=== PATIENT | male | born 1955 | race Caucasian/White ===

== ENCOUNTER 2023-04-08 13:57 | Outpatient (OUT) | payer SELFPAY ==
[2023-04-08 15:41] LABS: Prostate Specific Antigen Scrn 0.96 ng/mL (<=4.00)
== END 2023-04-08 13:58 | disposition home or self-care (01) ==
LOC: LAB 13:57
PROVIDERS: PCP Internal Medicine; Visit Provider Internal Medicine
DX: Z12.5 Encounter for screening for malignant neoplasm of prostate (principal)
CPT/HCPCS: 36415; G0103

== ENCOUNTER 2023-04-08 13:59 | Outpatient (OUT) | payer SELFPAY ==
[2023-04-08 14:23] LABS: Hematocrit 37.8 % (42.0-54.0); Hemoglobin 13.7 g/dL (14.0-18.0)
[2023-04-08 15:28] LABS: Percent Iron Saturation 40.2 %
[2023-04-08 15:46] LABS: Albumin Level 3.9 g/dL (3.4-5.0); Anion Gap 12.2; Calcium 8.6 mg/dL (8.5-10.1); Chloride 95 mmol/L (98-107); Estimated GFR (African America 30 (>=60); Estimated GFR (Non-African Ame 25 (>=60); Glucose 118 mg/dL (74-106); Phosphorus 3.2 mg/dL (2.6-4.7); Potassium 4.2 mmol/L (3.5-5.1); Sodium 126 mmol/L (136-145); Uric Acid 6.3 mg/dL (3.5-7.2)
[2023-04-09 12:52] LABS: Bilirubin Urine NEGATIVE (NEGATIVE); Blood Urine NEGATIVE (NEGATIVE); Clarity Urine CLEAR (CLEAR); Color Urine LT. YELLOW (YELLOW); Glucose Urine UA NEGATIVE (NEGATIVE); Ketones Urine NEGATIVE (NEGATIVE); Leukocyte Esterase Urine NEGATIVE (NEGATIVE); Nitrite Urine NEGATIVE (NEGATIVE); Protein Urine NEGATIVE (NEG/TRACE); Specific Gravity Urine <=1.005 (1.005-1.025); Urobilinogen Urine 0.2 EU/dL (0.2-1.0); pH Urine 5.5 (5.0-9.0)
[2023-04-09 13:36] LABS: Creatinine Urine Random 57.42 mg/dL (20.00-300.00); Protein Creatinine Ratio Urine 0.17; Total Protein Urine Random 9.5 mg/dL (<=11.9)
[2023-04-09 14:10] LABS: PTH, Intact 60 pg/mL (15-65)
[2023-04-09 14:36] LABS: Bacteria Urine NONE SEEN #/HPF (NONE SEEN); Cast Seen? NONE SEEN #/LPF (NONE SEEN); Crystals Seen? None Seen #/HPF (None Seen); Mucus Urine NONE SEEN (NONE SEEN); RBC Urine 0-2 #/HPF (0-2); Squamous Epithelial Cell Urine NONE SEEN #/LPF (NONE/RARE); Urine Culture Indicated NO; WBC Urine 0-2 #/HPF (NONE SEEN)
== END 2023-04-08 14:00 | disposition home or self-care (01) ==
LOC: LAB 13:59
PROVIDERS: PCP Internal Medicine; Visit Provider Internal Medicine
DX: Z12.5 Encounter for screening for malignant neoplasm of prostate (principal); I12.9 Hypertensive chronic kidney disease with stage 1 through stage 4 chronic kidney disease, or unspecified chronic kidney disease; N18.4 Chronic kidney disease, stage 4 (severe); E87.1 Hypo-osmolality and hyponatremia; N25.81 Secondary hyperparathyroidism of renal origin; N26.1 Atrophy of kidney (terminal); M10.9 Gout, unspecified; E87.5 Hyperkalemia
CPT/HCPCS: 36415; 80069; 81001; 82306; 82570; 82607; 82728; 82746; 83540; 83550; 83735; 83970; 84156; 84550; 85014; 85018; G0103

== ENCOUNTER 2023-07-07 12:30 | Outpatient (OUT) | payer MEDICARE, SELFPAY ==
[2023-07-07 13:20] LABS: Hematocrit 36.7 % (42.0-54.0); Mean Corpuscular HGB Conc 35.4 g/dL (29.9-35.2); Mean Corpuscular Hemoglobin 32.5 pg (25.9-34.0); Mean Corpuscular Volume 91.8 fL (80.0-94.0); Mean Platelet Volume 9.5 fL (9.5-13.5); Platelet Count 230 10^3/uL (150-450); Red Cell Distribution Width 12.5 % (11.0-15.0); White Blood Count 7.5 10^3/uL (4.0-11.0)
[2023-07-07 14:21] LABS: Albumin Level 3.8 g/dL (3.4-5.0); Anion Gap 13.5; Calcium 8.5 mg/dL (8.5-10.1); Carbon Dioxide 24.1 mmol/L (21.0-32.0); Chloride 92 mmol/L (98-107); Estimated GFR (African America 34 (>=60); Estimated GFR (Non-African Ame 28 (>=60); Glucose 102 mg/dL (74-106); Magnesium 1.9 mg/dL (1.8-2.4); Potassium 4.6 mmol/L (3.5-5.1); Sodium 125 mmol/L (136-145); Uric Acid 5.8 mg/dL (3.5-7.2)
[2023-07-08 11:08] LABS: Bilirubin Urine NEGATIVE (NEGATIVE); Blood Urine NEGATIVE (NEGATIVE); Clarity Urine CLEAR (CLEAR); Color Urine LT. YELLOW (YELLOW); Glucose Urine UA NEGATIVE (NEGATIVE); Ketones Urine NEGATIVE (NEGATIVE); Leukocyte Esterase Urine NEGATIVE (NEGATIVE); Nitrite Urine NEGATIVE (NEGATIVE); Protein Urine NEGATIVE (NEG/TRACE); Urobilinogen Urine 0.2 EU/dL (0.2-1.0); pH Urine 6.5 (5.0-9.0)
[2023-07-08 11:20] LABS: Creatinine Urine Random 59.28 mg/dL (20.00-300.00); Protein Creatinine Ratio Urine 0.29; Total Protein Urine Random 17.2 mg/dL (<=11.9)
[2023-07-08 12:06] LABS: Bacteria Urine NONE SEEN #/HPF (NONE SEEN); Cast Seen? NONE SEEN #/LPF (NONE SEEN); Crystals Seen? None Seen #/HPF (None Seen); Mucus Urine NONE SEEN (NONE SEEN); RBC Urine NONE SEEN #/HPF (0-2); Squamous Epithelial Cell Urine RARE #/LPF (NONE/RARE); WBC Urine NONE SEEN #/HPF (NONE SEEN)
[2023-07-08 13:08] LABS: PTH, Intact 50 pg/mL (15-65)
== END 2023-07-07 12:31 | disposition home or self-care (01) ==
LOC: LAB 12:34
PROVIDERS: PCP Internal Medicine; Visit Provider Internal Medicine
DX: I12.9 Hypertensive chronic kidney disease with stage 1 through stage 4 chronic kidney disease, or unspecified chronic kidney disease (principal); N18.4 Chronic kidney disease, stage 4 (severe); E87.1 Hypo-osmolality and hyponatremia; N25.81 Secondary hyperparathyroidism of renal origin; M10.9 Gout, unspecified; E87.5 Hyperkalemia; D63.1 Anemia in chronic kidney disease
CPT/HCPCS: 36415; 80069; 81001; 82306; 82570; 82728; 83540; 83550; 83735; 83970; 84156; 84550; 85027

== ENCOUNTER 2023-07-08 10:26 | Outpatient (OUT) | payer MEDICARE, SELFPAY ==
[2023-07-08 11:07] LABS: Basophils Absolute Auto 0.1 10^3/uL (0.0-0.1); Basophils Percent Auto 1.3 % (0.2-2.0); Eosinophils Absolute Auto 0.9 10^3/uL (0.0-0.7); Hematocrit 37.9 % (42.0-54.0); Hemoglobin 13.5 g/dL (14.0-18.0); Immature Granulocytes Abs Auto 0.04 10^3/uL (0.00-0.03); Immature Granulocytes Pct Auto 0.4 % (0.0-0.5); Lymphocytes Absolute Auto 1.3 10^3/uL (1.2-3.8); Lymphocytes Percent Auto 12.8 % (20.5-60.0); Mean Corpuscular HGB Conc 35.6 g/dL (29.9-35.2); Mean Corpuscular Hemoglobin 33.1 pg (25.9-34.0); Mean Corpuscular Volume 92.9 fL (80.0-94.0); Mean Platelet Volume 9.5 fL (9.5-13.5); Monocytes Absolute Auto 0.6 10^3/uL (0.3-0.8); Monocytes Percent Auto 5.2 % (1.7-12.0); Neutrophils Absolute Auto 7.5 10^3/uL (1.4-6.5); Neutrophils Percent Auto 71.3 % (43.0-75.0); Platelet Count 246 10^3/uL (150-450); Red Blood Count 4.08 10^6/uL (4.70-6.10); Red Cell Distribution Width 12.7 % (11.0-15.0); White Blood Count 10.5 10^3/uL (4.0-11.0)
[2023-07-08 11:20] LABS: Anion Gap 15.3; BUN Creatinine Ratio 8.5; Calcium 8.6 mg/dL (8.5-10.1); Carbon Dioxide 25.7 mmol/L (21.0-32.0); Chloride 92 mmol/L (98-107); Chol HDL Ratio 2.5; Cholesterol 124 mg/dL (<=200); Estimated GFR (African America 34 (>=60); Estimated GFR (Non-African Ame 28 (>=60); Glucose 96 mg/dL (74-106); HDL Cholesterol 49 mg/dL (40-60); LDL Cholesterol Calculated 64.2 mg/dL; Sodium 128 mmol/L (136-145); Triglycerides 54 mg/dL (<=150); VLDL CHOLESTEROL 10.8 mg/dL
[2023-07-08 11:22] LABS: Prostate Specific Antigen Scrn 0.77 ng/mL (<=4.00)
== END 2023-07-08 10:27 | disposition home or self-care (01) ==
LOC: LAB 10:27
PROVIDERS: PCP Internal Medicine; Visit Provider Internal Medicine
DX: E78.00 Pure hypercholesterolemia, unspecified (principal); I10 Essential (primary) hypertension; N18.4 Chronic kidney disease, stage 4 (severe); Z12.5 Encounter for screening for malignant neoplasm of prostate
CPT/HCPCS: 36415; 80048; 80061; 85025; G0103

== ENCOUNTER 2023-08-04 08:35 | Outpatient (OUT) | payer MEDICARE, SELFPAY ==
--- NOTE | 2023-08-04 08:38 | CT_ITS ---
The [address] [address] Patient Name: SABRINA MCFARLAND MRN: [id number] date: 1955 Sex: M Assigned Patient Location: CT Current Patient Location: CT Accession/Order Number: [id number] Exam Date: 08/04/2023 09:57 Report Date: 08/04/2023 10:55 At the request of: ROBE WASHBURN Procedure: CT abdomen pelvis wo con CT abdomen pelvis wo con, 08/04/2023 9:57 AM EST INDICATION: Weight Loss Unintentional R63.4, Anemia D64.9 COMPARISON: There is no appropriate prior study for comparison. TECHNIQUE: Axial images of the abdomen and pelvis were obtained without the administration of IV contrast. Multiplanar reformatted images were generated and reviewed as needed. Dose reduction techniques were achieved by using automated exposure control and/or adjustment of mA and/or kV according to patient size and/or use of iterative reconstruction technique. FINDINGS: Lungs: The base of lungs is clear. No pleural effusion is noted. Liver and gallbladder: The liver and gallbladder are unremarkable. No enlargement of intra or extrahepatic biliary ducts. Genitourinary system: Left kidney is atrophic. Fatty stranding along the both kidneys is noted. No hydronephrosis. 6.5 mm nonobstructive nephrolithiasis in the inferior pole of the left kidney is noted. There is asymmetrical thickening of the right urinary bladder wall measuring 7.9 mm. Otherwise, no abnormality of the urinary bladder is noted. Other solid abdominal organs: adrenal glands, pancreas, and spleen are unremarkable. Aorta: The infrarenal abdominal aorta is nonaneurysmal. Free fluid: There is no free fluid in the abdomen pelvis. Lymph node: No lymph node enlargement by size criteria is noted. Stomach and Bowel: No abnormality of the stomach is noted. No abnormality of opacified bowel is noted. There is colonic diverticulosis without any sign of diverticulitis. Bone: There is no suspicious osteolytic or osteoblastic lesion. CT/CT abdomen pelvis wo con IMPRESSION: Asymmetrical thickening of the right urinary bladder wall. Cystoscopy is recommended for further evaluation. Colonic diverticulosis with no diverticulitis. Electronically authenticated by: LORI MALIN Date: 08/04/2023 10:55
--- OUTSIDE RECORDS SUMMARY | 2023-08-04 08:38 | XMS_ITS | CCD ---
Author Name Unknown Address [address] [facility] [address] [place] [id number] Organization [facility] Care Team Providers Care Prepress Specialist Name Role Phone GENARO, DR NAGEL Consulting Unavailable GENARO, DR NAGEL Attending Unavailable GENARO, DR NAGEL Admitting Unavailable GENARO, DR NAGEL Primary Care Unavailable TRIPOLI, DR ADELINA Crews Consulting Unavailable Young Berrios Unavailable Jeremy Lam Unavailable Sixto Dobson Unavailable Allergies Allergy Classification Reported Allergen(s) Allergy Type Date of Onset Reaction(s) Facility (2 sources) patient allergy list reviewed by nurse or physicia Propensity to adverse reactions 9 Comment:Done 1010data Other Medications Current Medications Medication Drug Class(es) Dates Sig (Normalized) Sig (Original) amLODIPine 5 mg oral tablet (20 sources) Dihydropyridine Calcium Channel Inna take 1 tablet by mouth every twelve hours amLODIPine Besylate 5 MG 1 tablet Orally bid Active take 1 tablet by kamala th every twenty-four hours amLODIPine Besylate 10 MG 1 tablet Orall y Once a day Not-Taking/PRN aspirin 81 mg chewable tablet (17 sources) Platelet Aggregation Inhibitor, Nonsteroidal Anti-inflammatory Drug take 1 tablet by mouth every twenty-four hours Aspirin 81 MG 1 tablet Orally Once a day Active atorvastatin 20 mg oral tablet (17 sources) HMG-CoA Reductase Inhibitor take 1 tablet by mouth every twenty-four hours Atorvastatin Calcium 20 MG 1 tablet Orally Once a day for 30 days Active benazepril hydrochloride 20 mg oral tablet (17 sources) Angiotensin Converting Enzyme Inhibitor take 1 tablet by mouth every twenty-four hours Benazepril HCl 20 MG 1 tablet Orally Once a day Active take 0.5 tablet by mouth once da jud Benazepril HCl 40 MG 1/2 tablet Orally Once a day Active ergocalciferol 1.25 mg oral capsule (12 sources) Provitamin D2 Compound Start: 01-09-2023 take 1 capsule by mouth every week Ergocalciferol 1.25 MG (94540 UT) 1 capsule Orally Q week for 90 days Dec, Active labetalol hydrochloride 100 mg oral tablet (20 sources) beta-Adrenergic Inna take 1 tablet by mouth every twelve hours Labetalol HCl 100 MG 1 tablet Orally Twice a day Active omeprazole 40 mg delayed release oral capsule (3 sources) Proton Pump Inhibitor Start: 07-09-2023 take 1 capsule by mouth once daily Omeprazole 40 MG 1 capsule 30 minutes before morning meal Orally Once a day for 30 days Jun, Active Problems Active Problems Problem Classification Problem Date Documented Date Episodic/Chronic Chronic kidney disease (20 sources) Chronic kidney disease stage 4; Translations: [Chronic kidney disease, stage 4 (severe)] Onset: 2 Resolved: 2 Chronic Deficiency and other anemia (4 sources) Anemia of renal disease; Translations: [Anemia in chronic kidney disease] Chronic Deficiency and other anemia (1 source) Anemia in chronic kidney disease Chronic Deficiency and other anemia (1 source) Anemia, unspecified Episodic Disorders of lipid metabolism (19 sources) Hypercholesterolemia; Translations: [Pure hypercholesterolemia, unspecified] Chronic Essential hypertension (12 sources) Essential hypertension; Translations: [Essential (primary) hypertension] Chronic Fluid and electrolyte disorders (14 sources) Hypo-osmolality and hyponatremia; Translations: [Hyperkalemia] Onset: 2 Resolved: 2 Episodic Gout and other crystal arthropathies (20 sources) Gout; Translations: [Gout, unspecified] Onset: 2 Resolved: 2 Chronic Hyperplasia of prostate (4 sources) Lower urinary tract symptoms due to benign prostatic hypertrophy; Translations: [Benign prostatic hyperplasia with lower urinary tract symptoms] Onset: 7 Chronic Hypertension with complications and secondary hypertension (20 sources) Chronic kidney disease due to hypertension; Translations: [Hypertensive chronic kidney disease with stage 1 through stage 4 chronic kidney disease, or unspecified chronic kidney disease] Onset: 2 Resolved: 2 Chronic Nephritis; nephrosis; renal sclerosis (20 sources) Nephrosclerosis; Translations: [Atrophy of kidney (terminal)] Onset: 2 Resolved: 2 Chronic Occlusion or stenosis of precerebral arteries (2 sources) Right carotid artery stenosis; Translations: [Occlusion and stenosis of right carotid artery] Chronic Other connective tissue disease (1 source) Personal history of other diseases of the musculoskeletal system and connective tissue Episodic Other diseases of kidney and ureters (17 sources) Secondary hyperparathyroidism; Translations: [Secondary hyperparathyroidism of renal origin] Chronic Other diseases of kidney and ureters (6 sources) Secondary hyperparathyroidism of renal origin Onset: 2 Resolved: 2 Chronic Other nutritional; endocrine; and metabolic disorders (1 source) Abnormal weight loss Episodic Other screening for suspected conditions (not mental disorders or infectious disease) (2 sources) Encounter for screening for malignant neoplasm of prostate Episodic Residual codes; unclassified (4 sources) Tobacco user; Translations: [Tobacco use] Onset: 7 Episodic Residual codes; unclassified (1 source) Early satiety Episodic Substance-related disorders (20 sources) Nicotine dependence, cigarettes, uncomplicated; Translations: [Nicotine dependence] Onset: 7 Chronic Past or Other Problems Problem Classification Problem Date Documented Da te Episodic/Chronic Malaise and fatigue (2 sources) Malaise and fatigue; Translations: [Other malaise and fatigue] Onset: 06-16-2018 Episodic Other circulatory disease (2 sources) Cardiovascular symptoms; Translations: [Other symptoms involving cardiovascular system] Onset: 06-16-2018 Episodic Other gastrointestinal disorders (2 sources) Feces contents abnormal; Translations: [Nonspecific abnormal finding in stool contents] Onset: 12-15-2018 Episodic Other nutritional; endocrine; and metabolic disorders (2 sources) Body mass index 25-29 - overweight; Translations: [Body mass index (BMI) 26.0-26.9, adult] Onset: 03-06-2017 Episodic Other nutritional; endocrine; and metabolic disorders (2 sources) Overweight; Translations: [Overweight] Onset: 03-06-2017 Episodic Other skin disorders (2 sources) Sebaceous cyst; Translations: [Sebaceous cyst] Onset: 03-06-2015 Episodic Unclassified (2 sources) Long-term current use of drug therapy; Translations: [Long-term (current) use of other medications] Onset: 09-20-2017 Results Test Name Value Interpretation Reference Range Facil ity CT LUNG CANCER SCREENINGon 0 12-08-2021 CT LUNG CANCER SCREENING EXAMINATION: CT LUNG CANCER SCREENING HISTORY: Tobacco dependence caused by cigarettes COMPARISON: No relevant comparison available. TECHNIQUE: Axial, Coronal, and Sagittal images were created without the administration of IV contrast material. Dose reduction techniques were achieved by using automated exposure control and/or adjustment of mA and/or kV according to patient size and/or use of iterative reconstruction technique. FINDINGS: LUNGS: No visible pulmonary disease. PLEURA: No mass, effusion, or pneumothorax. VASCULATURE: No abnormality. JORGE L: No mass or pathologic adenopathy. MEDIASTINUM: No mass or pathologic adenopathy. CARDIAC: No enlargement. No pericardial effusion. Mild coronary atherosclerosis AORTA: No aneurysm or dissection. CHEST WALL: No mass or axillary adenopathy BONES: No bone lesion or fracture. LIMITED ABDOMEN: No suspicious findings. Limited images of the upper abdomen. OTHER: Negative. IMPRESSION: LUNG SCREENING: Lung-RADS Category 1 Negative. No nodules and definitely benign nodules. Continue annual screening with LDCT in 12 months. Electronically authenticated by: ADELINA BISHOP Date: 2021-12-08 11:21 Normal [facility] Coding Summary.on 07-18-2020 Coding Summary. CODING DATE: 07/18/2020 [facility] STATUS: Home (Routine DC) PAYOR: Commercial Insurance APC DESCRIPTION 5522 Level 2 Imaging without Contrast ADMIT DX: REASON FOR VISIT DX: N18.32 Chronic kidney disease, stage 3b FINAL DX: PRINCIPAL: N18.32 Chronic kidney disease, stage 3b SECONDARY: N27.0 Small kidney, unilateral PYMT PROC APC STAT DESCRIPTION DOCTOR NAME DATE NOTE: The code number assigned matches the documented diagnosis and / or procedure in the patient's chart. However, the narrative phrase printed from the coding software may appear abbreviated, or result in slightly different terminology. Coded By: Farzana Ramirez CphT Date Saved: 07/18/2020 02:54 pm Normal [facility] US Retroperitoneal Completeo n 07-17-2020 US Retroperitoneal Complete Exam Date/Time: 07/13/2020 10:28 EST Reason for Exam: N18.32 Chronic kidney disease, stage 3b Report IMPRESSION: NEGATIVE ULTRASOUND OF THE RIGHT KIDNEY. SMALL LEFT KIDNEY WITH DIFFUSE CORTICAL THINNING. NEGATIVE ULTRASOUND OF THE URINARY BLADDER. NO POSTVOID BLADDER RESIDUAL. CLINICAL HISTORY: N18.32 Chronic kidney disease, stage 3b. COMMENT: The right kidney measures approximately 10.8 cm in length, with renal cortical thickness of approximately 1.6 cm. The right kidney has a normal sonographic appearance, without evidence of mass or hydronephrosis. The left kidney measures approximately 6.7 cm in length, with renal cortical thickness of approximately 0.6 cm. There is diffuse thinning of cortex of the left kidney. No left renal mass nor cyst is evident. No hydronephrosis is noted on the left. The urinary bladder filled with fluid measures approximately 10.2 x 9.6 x 11.2 cm, with an estimated volume of the 580 cc. The urinary bladder is unremarkable in appearance on this ultrasound exam. After voiding, there is no postvoid bladder residual. FINAL REPORT Dictated: 07/17/2020 2:33 pm Rebel Nieves M.D. Signed (Electronic Signature): 07/17/2020 2:33 pm Signed by: Rebel Nieves M.D. Transcribed by: JANETH Technologist: Miko RODRIGUEZ [facility] MOMO and PE, Serumon 07-14-20 Albumin [Mass/Vol] 3.7 g/dL 2.9-4.4 [facility] Comment on above: Performed By: #### 1 [id number] ####[facility] [address] [place] [address] Albumin/Globulin [Mass ratio] 1.1 {ratio} 0.7-1.7 [facility] Comment on above: Performed By: #### 1 [id number] ####[facility] [address] [place] [address] Alpha 1 globulin Elph [Mass/Vol] 0.2 g/dL 0.0-0.4 [facility] Comment on above: Performed By: #### 1 [id number] ####[facility] [address] [place] [address] Alpha 2 globulin Elph [Mass/Vol] 0.9 g/dL 0.4-1.0 [facility] Comment on above: Performed By: #### 1 [id number] ####[facility] [address] [place] [address] Beta globulin Elph [Mass/Vol] 0.8 g/dL 0.7-1.3 [facility] Comment on above: Performed By: #### 1 [id number] ####[facility] [address] [place] [address] Gamma globulin Elph [Mass/Vol] 1.4 g/dL 0.4-1.8 [facility] Comment on above: Performed By: #### 1 [id number] ####[address] [place] [address] Globulin (S) [Mass/Vol] 3.4 g/dL 2.2-3.9 [facility] Comment on above: Performed By: #### 1 [id number] ####[address] [address] IgA [Mass/Vol] 153 mg/dL 61-437 [facility] Comment on above: Performed By: #### 1 2561504 ####[address] [address] IgG [Mass/Vol] 1369 mg/dL 603-1613 [facility] Comment on above: Performed By: #### 1 5069910 ####[address] [address] IgM [Mass/Vol] 148 mg/dL 20-172 [facility] Comment on above: Performed By: #### 1 5341541 ####[facility] [address] [place] [address] Interpretation IEP [Interp] Comment [facility] Comment on above: Result Comment: No m onoclonality detected. Performed By: #### 1 [id number] ####[address] [address] Laboratory comment Iker (Report) Comment [facility] Comment on above: Result Comment: Prot ein electrophoresis scan will follow via computer, mail, or marriage counselor minister delivery. Performed at: [address] [id number] PhD Aguilar Nagy Performed By: #### 1 [id number] ####[facility] [address] [place] [address] Protein [Mass/Vol] 7.1 g/dL 6.0-8.5 [facility] Comment on above: Performed By: #### 1 [id number] ####[address] [place] [address] Protein.monoclonal Elph [Mass/Vol] Not Observed Not Observed [facility] Comment on above: Performed By: #### 1 [id number] ####[address] [place] [address] Consent for Treatmenton 06-27 Consent for Treatment [id number] .[id number]:127 Normal [facility] Lab Miscellaneous-LCon 07-13 Test Code 760139 [facility] Comment on above: Performed By: #### 1 [id number] ####[address] [address] Test Name IGD [facility] Comment on above: Performed By: #### 1 [id number] ####[address] [address] Physician Orderon 07-11-2020 Physician Order [id number] .00CD:127 Normal [facility] Coding Summary.on 07-10-2020 Coding Summary. CODING DATE: 07/10/2020 FINAL [facility] STATUS: Home (Routine DC) PAYOR: Commercial Insurance ADMIT DX: REASON FOR VISIT DX: N18.32 Chronic kidney disease, stage 3b FINAL DX: PRINCIPAL: N18.32 Chronic kidney disease, stage 3b SECONDARY: E87.1 Hypo-osmolality and hyponatremia PYMT PROC APC STAT DESCRIPTION DOCTOR NAME DATE NOTE: The code number assigned matches the documented diagnosis and / or procedure in the patient's chart. However, the narrative phrase printed from the coding software may appear abbreviated, or result in slightly different terminology. Coded By: Farzana Ramirez CphT Date Saved: 07/10/2020 09:25 pm Normal [facility] Auto Diffon 07-06-2020 Basophils/100 WBC (Bld) 1.4 % Normal 0.0-2.0 [facility] Comment on above: Order Comment: Order Added by Discern Expert. Performed By: #### 2 377513, 3904201, 6590358, 5958609, 33639247, 7238320 #### [facility] [address] [place] [address] Basophils/Leukocytes Auto (Bld) [Pure # fraction] 0.1 E9/L Normal 0.0-0.2 [facility] Comment on above: Order Comment: Order Added by Discern Expert. Performed By: #### 2 279981, 8782937, 8219180, 4444628, 27662312, 3308376 #### [facility] [address] [place] [address] Eosinophils/100 WBC (Bld) 8.6 % High 0.0-8.0 [facility] Comment on above: Order Comment: Order Added by Discern Expert. Performed By: #### 2 977853, 9612508, 0201532, 9539547, 21422227, 9083303 #### [facility] [address] [place] [address] Eosinophils/Leukocyte s Auto (Bld) [Pure # fraction] 0.9 E9/L High 0.0-0.5 [facility] Comment on above: Order Comment: Order Added by Discern Expert. Performed By: #### 2 001310, 3120587, 0856688, 7716186, 93646961, 7204982 #### [facility] [address] [place] [address] Lymphocytes/100 WBC (Bld) 14.0 % Normal 14.0-50.0 [facility] Comment on above: Order Comment: Order Added by Discern Expert. Performed By: #### 2 715016, 1477376, 3112121, 4441807, 38711253, 5650747 #### [facility] [address] [place] [address] Lymphocytes/Leukocyte s Auto (Bld) [Pure # fraction] 1.4 E9/L Normal 1.0-4.0 [facility] Comment on above: Order Comment: Order Added by Discern Expert. Performed By: #### 2 822427, 2621972, 2150080, 5522485, 67681026, 0963693 #### [facility] [address] [place] [address] Monocytes/100 WBC (Bld) 7.7 % Normal 4.0-14.0 [facility] Comment on above: Order Comment: Order Added by Discern Expert. Performed By: #### 2 839704, 5852299, 3517603, 6582620, 40178813, 8725332 #### [facility] [address] [place] [address] Monocytes/Leukocytes Auto (Bld) [Pure # fraction] 0.8 E9/L Normal 0.2-1.0 [facility] Comment on above: Order Comment: Order Added by Discern Expert. Performed By: #### 2 890640, 8033738, 8898454, 2030738, 04614331, 4489054 #### [facility] [address] [place] [address] Neutrophils/100 WBC (Bld) 68.3 % Normal 36.0-75.0 [facility] Comment on above: Order Comment: Order Added by Discern Expert. Performed By: #### 2 320189, 7993790, 2919053, 7204840, 37310630, 9901075 #### [facility] [address] [place] [address] Neutrophils/Leukocyte s Auto (Bld) [Pure # fraction] 6.8 E9/L Normal 2.0-7.5 [facility] Comment on above: Order Comment: Order Added by Discern Expert. Performed By: #### 2 735868, 6721377, 6693150, 2434820, 12319129, 0629967 #### [facility] [address] [place] [address] BMPon 07-06-2020 Anion gap [Moles/Vol] 10 mmol/L Normal 6-16 [facility] Comment on above: Performed By: #### 2 041491, 2365127, 2160822, 8177045, 53354956, 2907621 #### [facility] [address] [place] [address] Calcium [Mass/Vol] 9.1 mg/dL Normal 8.9-11.1 [facility] Comment on above: Performed By: #### 2 380136, 3287888, 9257276, 4893091, 01324854, 8843398 #### [facility] [address] [place] [address] Chloride [Moles/Vol] 102 mmol/L Normal 101-111 [facility] Comment on above: Performed By: #### 2 873502, 4950280, 3674057, 8301988, 35015449, 6445346 #### [facility] [address] [place] [address] CO2 [Moles/Vol] 20 mmol/L Low 21-31 [facility] Comment on above: Performed By: #### 2 413150, 9345753, 5411445, 9379459, 87533376, 4599205 #### [facility] [address] [place] [address] Creatinine [Mass/Vol] 2.4 mg/dL High 0.5-1.3 [facility] Comment on above: Performed By: #### 2 562716, 3224450, 6423973, 6667721, 10120056, 8763952 #### [facility] [address] [place] [address] Glucose [Mass/Vol] 106 mg/dL Normal 55-199 [facility] Comment on above: Result Comment: If t his glucose result represents a fasting glucose, interpretation should refer to the following reference range: 55-99 mg/dL Performed By: #### 2 084424, 1292057, 5471631, 2629679, 24075332, 1042641 #### [facility] [address] [place] [address] Potassium [Moles/Vol] 4.3 mmol/L Normal 3.5-5.3 [facility] Comment on above: Performed By: #### 2 111915, 2276588, 7265320, 7899507, 73332707, 4521150 #### [facility] [address] [place] [address] Sodium [Moles/Vol] 128 mmol/L Low 135-145 [facility] Comment on above: Performed By: #### 2 246345, 3463591, 7442973, 4783165, 68947264, 4392002 #### [facility] [address] [place] [address] Urea nitrogen [Mass/Vol] 32 mg/dL High 5-21 [facility] Comment on above: Performed By: #### 2 192905, 3136710, 4070207, 5960377, 24942874, 0039160 #### [facility] [address] [place] [address] Urea nitrogen/Creatinine [Mass ratio] 13 No Units Normal 10-20 [facility] Comment on above: Performed By: #### 2 675646, 1267509, 8385339, 6981571, 72410437, 2509203 #### [facility] [address] [place] [address] CBC w/ Auto Diffon 0 Erythrocyte distribution width (RBC) [Ratio] 13.1 % Normal 10.9-14.2 [facility] Comment on above: Performed By: #### 2 551293, 6015238, 6396352, 8479578, 33847336, 3566441 #### [facility] [address] [place] [address] Hematocrit (Bld) [Volume fraction] 43.8 % Normal 37.7-49.0 [facility] Comment on above: Performed By: #### 2 942478, 5585756, 3730301, 2405107, 35342238, 0612846 #### [facility] [address] [place] [address] Hemoglobin (Bld) [Mass/Vol] 15.2 g/dL Normal 13.5-17.5 [facility] Comment on above: Performed By: #### 2 928669, 1874328, 2933291, 8041049, 74162523, 8599772 #### [facility] [address] [place] [address] MCH (RBC) [Entitic mass] 31.8 pg Normal 27.0-34.0 [facility] Comment on above: Performed By: #### 2 879306, 7605549, 9113190, 2982634, 87354953, 3548742 #### [facility] [address] [place] [address] MCHC (RBC) [Mass/Vol] 34.8 g/dL Normal 31.4-36.0 [facility] Comment on above: Performed By: #### 2 407993, 3395377, 2637054, 4757215, 54173959, 5452776 #### [facility] [address] [place] [address] MCV (RBC) [Entitic vol] 91.3 fL Normal 80.0-100.0 [facility] Comment on above: Performed By: #### 2 533017, 7763032, 8195128, 9888118, 71314547, 8100814 #### [facility] [address] [place] [address] Platelet mean volume (Bld) [Entitic vol] 8.0 fL Normal 6.4-10.8 [facility] Comment on above: Performed By: #### 2 994716, 2359056, 3475478, 8105361, 50426378, 7509645 #### [facility] [address] [place] [address] Platelets (Bld) [#/Vol] 328.0 E9/L Normal 150.0-500.0 [facility] Comment on above: Performed By: #### 2 865250, 3578963, 3787187, 8216378, 68018070, 9604696 #### [facility] [address] [place] [address] RBC (Bld) [#/Vol] 4.8 E12/L Normal 4.3-5.9 [facility] Comment on above: Performed By: #### 2 312383, 1170334, 0800922, 3201658, 94010923, 4367797 #### [facility] [address] [place] [address] WBC corrected for nucl RBC Auto (Bld) [#/Vol] 9.9 E9/L Normal 4.0-11.0 [facility] Comment on above: Performed By: #### 2 583552, 7758009, 3359303, 0531227, 39892615, 2470991 #### [facility] [address] [place] [address] Consent for Treatmenton 06-27 Consent for Treatment [id number] .[id number]:127 Normal [facility] Osmolalityon 07-06-2020 Osmolality [Osmolality] 293 mOsm/kg Normal 275-295 [facility] Comment on above: Performed By: #### 2 579170, 3414983, 8273000, 1465994, 09369524, 4254059 ####[facility] [address] [place] [address] Physician Orderon 07-06-2020 Physician Order [id number] .[id number]:127 Normal [facility] U Osmolalityon 07-06-2020 U Osmolality 194 mOsm/kg Normal 50-1400 [facility] Comment on above: Performed By: #### 1 0169822, 8195775 #### [facility] [address] [place] [address] Uric Acidon 07-06-2020 Urate [Mass/Vol] 8.0 mg/dL High 2.2-7.4 [facility] Comment on above: Performed By: #### 2 810584, 8799268, 9565640, 1520615, 28183041, 9389358 ####[facility] [address] [place] [address] Urinalysison 07-06-2020 Bilirubin Ql (U) Negative Normal Negative [facility] Comment on above: Performed By: #### 1 3801840, 7236087 #### [facility] [address] [place] [address] Clarity (U) CLEAR Normal Clear [facility] Comment on above: Performed By: #### 1 2697866, 7523584 #### [facility] [address] [place] [address] Color (U) YELLOW Normal Yellow [facility] Comment on above: Performed By: #### 1 5773084, 0181816 #### [facility] [address] [place] [address] Epithelial cells.squamous LM.HPF (Urine sed) [#/Area] 0-2 Normal 0-2 [facility] Comment on above: Performed By: #### 1 7510279, 8356438 #### [facility] [address] [place] [address] Glucose Test strip (U) [Mass/Vol] Negative Normal Negative [facility] Comment on above: Performed By: #### 1 5982045, 7177248 #### [facility] [address] [place] [address] Hemoglobin Ql (U) TRACE Abnormal Negative [facility] Comment on above: Performed By: #### 1 2506388, 2202099 #### [facility] [address] [place] [address] Ketones (U) [Mass/Vol] Negative Normal Negative [facility] Comment on above: Performed By: #### 1 4622573, 3697182 #### [facility] [address] [place] [address] [place].plasma/Lithiu m.RBC (Bld) [Mass ratio] 0-3 Normal 0-3 [facility] Comment on above: Performed By: #### 1 [id number], [id number] #### [facility] [address] [place] [address] Nitrite Ql (U) Negative Normal Negative [facility] Comment on above: Performed By: #### 1 [id number], [id number] #### [facility] [address] [place] [address] pH (U) 6.0 [pH] 5.0-9.0 [facility] Comment on above: Performed By: #### 1 [id number] #### [facility] [address] [place] [address] Protein (U) [Mass/Vol] Negative Normal Negative [facility] Comment on above: Performed By: #### 1 [id number], [id number] #### [facility] [address] [place] [address] Specific gravity (U) [Rel density] 1.010 1.005-1.030 [facility] Comment on above: Performed By: #### 1 [id number], [id number] #### [facility] [address] [place] [address] UA Spec Desc Clean Catch Normal [facility] Comment on above: Performed By: #### 1 [id number] #### [facility] [address] [place] [address] Urobilinogen Qn (U) 0.2 {Edgar'U}/dL Normal 0.0-1.0 [facility] Comment on above: Performed By: #### 1 [id number], [id number] #### [facility] [address] [place] [address] WBC Auto Ql (U) Negative Normal Negative [facility] Comment on above: Performed By: #### 1 [id number], [id number] #### [facility] [address] [place] [address] WBC LM.HPF (Urine sed) [#/Area] 0-5 Normal 0-5 [facility] Comment on above: Performed By: #### 1 [id number], [id number] #### [facility] [address] [place] [address] eGFRon 07-06-2020 GFR/1.73 sq M predicted among blacks MDRD (S/P/Bld) [Vol rate/Area] 33 mL/min/1.73 m2 Low >=59 [facility] Comment on above: Order Comment: Order added by Discern Expert. Result Comment: eGFR is race adjusted. AA=. Performed By: #### 2 [id number], [id number], [id number], [id number], [id number] ####[facility] [address] [place] [address] GFR/1.73 sq M predicted among non-blacks MDRD (S/P/Bld) [Vol rate/Area] 28 mL/min/1.73 m2 Low >=59 [facility] Comment on above: Order Comment: Order added by Discern Expert. Result Comment: Manager Acquisition baldev kidney disease could be indicated at eGFR's of less than 60 mL/min/1.73m2. Kidney failure is indicated at less than 15 mL/min/1.73m2. Performed By: #### 2 [id number], [id number], [id number] ####[facility] [address] [place] [address] Vital Signs Date Time Vital Sign Value Performing Clinician Facility 07-24-2023 12:40-0500 Body height 182.88 cm Young Yash Other [facility] Other 07-24-2023 12:40-0500 Body mass index (BMI) [Ratio] 21.83 kg/m2 Young Yash Other [facility] Other 07-24-2023 12:40-0500 Body temperature 98.6 [degF] Young Yash Other [facility] Other 07-24-2023 12:40-0500 Body weight 73.03 kg Young Yash Other [facility] Other 07-24-2023 12:40-0500 Diastolic blood pressure 62 mm[Hg] Young Yash Other [facility] Other 07-24-2023 12:40-0500 Respiratory rate 16 /min Young Yash Other [facility] Other 07-24-2023 12:40-0500 SaO2% (BldA) [Mass fraction] 100 % Young Yash Other [facility] Other 07-24-2023 12:40-0500 Systolic blood pressure 130 mm[Hg] Young Yash Other [facility] Other 07-09-2023 10:30-0500 Body height 182.88 cm Jeremy Ball Other [facility] Other 07-09-2023 10:30-0500 Body mass index (BMI) [Ratio] 21.13 kg/m2 Jeremy Ball Other [facility] Other 07-09-2023 10:30-0500 Body weight 70.67 kg Jeremy Ball Other [facility] Other 07-09-2023 10:30-0500 Diastolic blood pressure 69 mm[Hg] Jeremy Ball Other [facility] Other 07-09-2023 10:30-0500 Respiratory rate 12 /min Jeremy Ball Other [facility] Other 07-09-2023 10:30-0500 Systolic blood pressure 131 mm[Hg] Jeremy Ball Other [facility] Other 01-29-2023 13:30-0400 Body height 182.88 cm Jeremy Ball Other [facility] Other 01-29-2023 13:30-0400 Body mass index (BMI) [Ratio] 22.32 kg/m2 Jeremy Ball Other [facility] Other 01-29-2023 13:30-0400 Body weight 74.66 kg Jeremy Ball Other [facility] Other 01-29-2023 13:30-0400 Diastolic blood pressure 66 mm[Hg] Jeremy Ball Other [facility] Other 01-29-2023 13:30-0400 Respiratory rate 12 /min Jeremy Ball Other [facility] Other 01-29-2023 13:30-0400 Systolic blood pressure 119 mm[Hg] Jeremy Ball Other [facility] Other 01-07-2023 11:20-0400 Body height 182.88 cm Young Yash Other [facility] Other 01-07-2023 11:20-0400 Body mass index (BMI) [Ratio] 22.62 kg/m2 Young Yash Other [facility] Other 01-07-2023 11:20-0400 Body temperature 97.7 [degF] Young Yash Other [facility] Other 01-07-2023 11:20-0400 Body weight 75.66 kg Young Yash Other [facility] Other 01-07-2023 11:20-0400 Diastolic blood pressure 64 mm[Hg] Young Yash Other [facility] Other 01-07-2023 11:20-0400 Respiratory rate 18 /min Young Yash Other [facility] Other 01-07-2023 11:20-0400 SaO2% (BldA) [Mass fraction] 99 % Young Yash Other [facility] Other 01-07-2023 11:20-0400 Systolic blood pressure 127 mm[Hg] Young Yash Other [facility] Other 02-21-2022 11:20-0400 Body height 182.88 cm Young Yash Other [facility] Other 02-21-2022 11:20-0400 Body mass index (BMI) [Ratio] 23.95 kg/m2 Young Yash Other [facility] Other 02-21-2022 11:20-0400 Body temperature 96.8 [degF] Young Yash Other [facility] Other 02-21-2022 11:20-0400 Body weight 80.11 kg Young Yash Other [facility] Other 02-21-2022 11:20-0400 Diastolic blood pressure 62 mm[Hg] Young Yash Other [facility] Other 02-21-2022 11:20-0400 Respiratory rate 18 /min Young Yash Other [facility] Other 02-21-2022 11:20-0400 SaO2% (BldA) [Mass fraction] 98 % Young Yash Other [facility] Other 02-21-2022 11:20-0400 Systolic blood pressure 119 mm[Hg] Young Yash Other [facility] Other 11-08-2021 11:00-0400 Body height 182.88 cm Young Yash Other [facility] Other 11-08-2021 11:00-0400 Body mass index (BMI) [Ratio] 24.79 kg/m2 Young Yash Other [facility] Other 11-08-2021 11:00-0400 Body temperature 97.6 [degF] Young Yash Other [facility] Other 11-08-2021 11:00-0400 Body weight 82.92 kg Young Yash Other [facility] Other 11-08-2021 11:00-0400 Diastolic blood pressure 74 mm[Hg] Young Yash Other [facility] Other 11-08-2021 11:00-0400 Respiratory rate 18 /min Young Yash Other [facility] Other 11-08-2021 11:00-0400 SaO2% (BldA) [Mass fraction] 98 % Young Yash Other [facility] Other 11-08-2021 11:00-0400 Systolic blood pressure 139 mm[Hg] Young Yash Other [facility] Other 07-15-2020 08:07-0500 Body mass index (BMI) [Ratio] COMMENT [facility] Comment on above: Result Comment: Test Ordered: [id number] Imm unoglobulin D, Quant, Serum Immunoglobulin D, Quant, Serum 4.04 mg/dL BN Reference Range: <14.11 Performed at: [facility] [id number] PhD Aguilar Nagy Performed By: #### 1 [id number] ####[facility] [address] [place] [address] Encounters Encounter Date Encounter Type Care Provider Facility Start: 07-24-2023 End: 07-24-2023 ambulatory Young Yash Other [facility] Other Start: 07-24-2023 Office outpatient vi sit 25 minutes Young Yash [facility] Start: 07-17-2023 End: 07-17-2023 ambulatory Sixto Dobson Other [facility] Other Start: 07-17-2023 Telephone encounter Sixto Pascal Translator Start: 07-09-2023 End: 07-09-2023 ambulatory Jeremy Lam Other [facility] Other Start: 07-09-2023 Patient encounter procedure Jeremy KRISHNA [facility] Start: 07-07-2023 End: 07-07-2023 ambulatory Jeremy Lam Other [facility] Other Start: 07-07-2023 Telephone encounter Jeremy Pascal [facility] Start: 04-08-2023 End: 04-08-2023 ambulatory Jeremy Lam Other [facility] Other Start: 04-08-2023 Telephone encounter Jeremy SPENCE G [facility] Start: 02-06-2023 End: 02-06-2023 ambulatory Jeremy Lam Other [facility] Other Start: 02-06-2023 Telephone encounter Jeremy SPENCE G [facility] Start: 01-29-2023 End: 01-29-2023 ambulatory Jeremy Lam Other [facility] Other Start: 01-29-2023 Office outpatient vi sit 15 minutes Jeremy Lam [facility] Start: 01-29-2023 Telephone encounter Jeremy SPENCE G [facility] Start: 01-14-2023 End: 01-14-2023 ambulatory Jeremy Lam Other [facility] Other Start: 01-14-2023 Telephone encounter Jeremy SPENCE G [facility] Start: 01-08-2023 End: 01-08-2023 ambulatory Young Yash Other [facility] Other Start: 01-08-2023 Telephone encounter Young Yash [facility] Start: 01-07-2023 End: 01-07-2023 ambulatory Young Yash Other [facility] Other Start: 01-07-2023 Office outpatient vi sit 25 minutes Young Yash [facility] Start: 01-07-2023 Telephone encounter Young Yash [facility] Start: 02-21-2022 End: 02-21-2022 ambulatory Young Yash Other [facility] Other Start: 02-21-2022 Office outpatient vi sit 25 minutes Young Yash [facility] Start: 02-21-2022 Telephone encounter Young Yash [facility] Start: 12-08-2021 End: 12-09-[address] JEREMY LAM Facility:[facility] Start: 11-29-2021 Adult health examination Jeremy Lam Other [facility] Other Start: 11-08-2021 End: 11-08-2021 ambulatory Young Berrios Other [facility] Other Start: 11-08-2021 Office outpatient vi sit 25 minutes Youngglenys Berrios [facility] Procedures Date Procedure Procedure Detail Performing Clinician Start: 06-13-2017 General examination of patient Jeremy Lam Other Start: 06-13-2017 Screening for malign ant neoplasm of colon Jeremy Lam Other Immunizations Immunization Date Immunization Notes Care Provider Shaniqua blackman 12-04-2020 COVID-19 Vaccine Moderna - Documentation Purposes Only Jeremy Lam Other [facility] Other 11-06-2020 COVID-19 Vaccine Moderna - Documentation Purposes Only Jeremy Lam Other [facility] Other 06-15-2020 zoster vaccine recombinant Jeremy Lam Other [facility] Other 04-12-2020 zoster vaccine recombinant Jeremy Lam Other [facility] Other Payers Date Payer Category Payer Private Health Insurance [id number] 1955 Unknown [id number] Medicare [id number] Private Health Insurance [id number] Private Health Insurance [id number] Social History Date Type Detail Facility Unknown if ever smoked [facility] Other Sex Assigned At Sex Assigned At Bir th [facility] Other Clinical Notes 11-08-2021 to 07-24-2023 Note Date & Type Note Facility 07-24-2023 Evaluation note Encounter Date Diagnosis Assessment Notes Jun, CKD (chronic kidney disease) stage 4, GFR 15-29 ml/min (ICD-10 - N18.4) He has CKD due to longstanding hypertension and atherosclerotic renovascular disease. His baseline serum creatinine is 2.6 mg/dL. He has no evidence of hematuria but has mild proteinuria on UA. His renal ultrasound showed atrophic left kidney. I explained to him potential need of DETECTIVE AND INTELLIGENCE ANALYST in the near future. I discussed with him different option of DETECTIVE AND INTELLIGENCE ANALYST including transplant, PD and HD. He is interested in PD. Jun, Hyponatremia (ICD-10 - E87.1) He has hyponatremia due to the alcoholism or SIADH. His serum sodium is low due to the noncompliance with the fluid restriction. I have advised him to limit her fluid intake to 50 ounces a day. He reported to have negative CT scan of the chest for lung cancer screening last year. I explained potential risk of cerebral edema, coma and seizure to him due to the critically low sodium. Advised him continue to follow with PCP for screening of the pulmonary nodule due to his smoking history. Advised him to quit smoking and alcohol. 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 Continue current medications Jun, Secondary hyperparathyroidism (ICD-10 - N25.81) He has a secondary hyperparathyroidism due to the CKD Continue oral ergocalciferol 50,000 unit every other weekly. Jun, Atrophic kidney (ICD-10 - N26.1) He has renal Atrophy possibly due to atherosclerotic disease Jun, Gout (ICD-10 - M10.9) He denies any recent gout flare. His uric acid is within the goal we will continue to monitor without any medication for now. Jun, Hyperkalemia (ICD-10 - E87.5) He had hyperkalemia due to the CKD and benazepril. His potassium is back to normal. I have advised him low potassium diet and provide information about it Jun, Anemia of renal disease (ICD-10 - D63.1) He has anemia due to the CKD but his hemoglobin within the goal. He has adequate iron stores, B12 and folate level. No need for LUPE. [facility] Other 12-13-2023 Evaluation note* Encounter Date Diagnosis Assessment Notes Treatment Notes Treatment Clinical Notes Jun, Primary hypertension (ICD-10 - I10) This patient is instructed to consume a healthy, low-fat, low-salt diet. They are also encouraged to continue exercise to achieve/maintain a normal BMI. Jun, Stage 4 chronic kidney disease (ICD-10 - N18.4) The patient is instructed on adequate control of hypertension and diabetes, if appropriate. They are also educated on the associated risks of NSAIDs and PPI use with kidney disease. They were instructed on adequate fluid balance and to avoid dehydration. Jun, Elevated cholesterol (ICD-10 - E78.00) Instructed on diet and exercise with continued statin therapy.Discussed the beneficial effects of lowering cholesterol in reducing the risk for cerebrovascular and cardiovascular disease. Jun, Cigarette nicotine dependence without complication (ICD-10 - F17.210) LDCT: 11/2021 This patient has been encouraged to quit tobacco use immediately. They are aware of the hazards associated with tobacco use, including but not limited to respiratory infections, vascular disease and cancers. LDCT lungs to be scheduled Jun, Hx of acute gouty arthritis (ICD-10 - Z87.39) Stable w/o acute flares noted. Diet instructions, specifically to decrease alcohol consumption Jun, Early satiety (ICD-10 - R68.81) Decrease beer and tobacco use. Diet w/ small, frequent feedings which may be better tolerated Refer for EGD to r/o PUD, gastritis and varices Jun, Medicare annual wellness visit, initial (ICD-10 - Z00.00) Personalized health advice was given to the beneficiary including a written plan for screenings discussed and provided. Advanced care planning reviewed and/or information given as requested. Additional counseling was provided here today in regards to, [ ]. The above visit was performed by [ ], under direct supervision of [ ]. Document reviewed and amended by provider signed below. Jun, Weight loss, unintentional (ICD-10 - R63.4) EGD and CT abd/pelvis to r/o malignancies. Small, frequent feedings may be better tolerated Jun, Anemia, unspecified type (ICD-10 - D64.9) May be multifactorial. r/o UGI bleeding. Jun, Screening PSA (prostate specific antigen) (ICD-10 - Z12.5) Yearly GARRISON and PSA [facility] Other 12-11-2023 Evaluation note* Encounter Date Diagnosis Assessment Notes Treatment Notes Treatment Clinical Notes Jun, Mixed hyperlipidemia (ICD-10 - E78.2) Diet and exercise w/ continued statin therapy. Jun, Hypertensive chronic kidney disease w stg 1-4/unsp chr kdny (ICD-10 - I12.9) This patient is instructed to consume a healthy, low fat, low salt diet. They are also encouraged to continue exercise to achieve/maintain a normal BMI. The patient is instructed on adequate control of hypertension and diabetes, if appropriate. They are also educated on the associated risks of NSAIDs and PPI use with kidney disease They are also instructed on adequate fluid balance and to avoid dehydration. [facility] Other 07-13-2023 Evaluation note* Encounter Date Diagnosis Assessment Notes Treatment Notes Treatment Clinical Notes Jan, Elevated cholesterol (ICD-10 - E78.00) [facility] Other 07-05-2023 Evaluation note* Encounter Date Diagnosis Assessment Notes Treatment Notes Treatment Clinical Notes Jan, Primary hypertension (ICD-10 - I10) This patient is instructed to consume a healthy, low-fat, low-salt diet. They are also encouraged to continue exercise to achieve/maintain a normal BMI. Jan, Stage 4 chronic kidney disease (ICD-10 - N18.4) The patient is instructed on adequate control of hypertension and diabetes, if appropriate. They are also educated on the associated risks of NSAIDs and PPI use with kidney disease. They were instructed on adequate fluid balance and to avoid dehydration. Jan, Elevated cholesterol (ICD-10 - E78.00) Instructed on diet and exercise with continued statin therapy.Discussed the beneficial effects of lowering cholesterol in reducing the risk for cerebrovascular and cardiovascular disease. Jan, Cigarette nicotine dependence without complication (ICD-10 - F17.210) LDCT: 11/2021 This patient has been encouraged to quit tobacco use immediately. They are aware of the hazards associated with tobacco use, including but not limited to respiratory infections, vascular disease and cancers. [facility] Other 07-05-2023 Evaluation note* Encounter Date Diagnosis Assessment Notes Treatment Notes Treatment Clinical Notes Jan, Screening PSA (prostate specific antigen) (ICD-10 - Z12.5) [facility] Other 06-20-2023 Evaluation note* Encounter Date Diagnosis Assessment Notes Treatment Notes Treatment Clinical Notes Dec, Esau leone w cr kid I-IV (ICD-10 - I12.9) [facility] Other 06-13-2023 Evaluation note* Encounter Date Diagnosis Assessment Notes Treatment Notes Treatment Clinical Notes Dec, CKD (chronic kidney disease) stage 4, GFR 15-29 ml/min (ICD-10 - N18.4) He has CKD due to longstanding hypertension and atherosclerotic renovascular disease. His baseline serum creatinine is 2.6-3.1 mg/dL. He has no evidence of hematuria but has mild proteinuria on UA. His renal ultrasound showed atrophic left kidney. I explained to him potential need of DETECTIVE AND INTELLIGENCE ANALYST in the near future. I discussed with him different option of DETECTIVE AND INTELLIGENCE ANALYST including transplant, PD and HD. He is interested in PD. I have referred him to the kidney smart classes Dec, Hyponatremia (ICD-10 - E87.1) He has hyponatremia due to the alcoholism or SIADH. His serum sodium is in low due to the noncompliance with the fluid restriction. I have advised him to limit her fluid intake to 50 ounces a day. He reported to have negative CT scan of the chest for lung cancer screening last year. I explained potential risk of cerebral edema, coma and seizure to him due to the critically low sodium. Advised him continue to follow with PCP for screening of the pulmonary nodule due to his smoking history. Advised him to quit smoking and alcohol. He can follow with PCP for referral program. Dec, Esau leone w cr kid I-IV (ICD-10 - I12.9) Blood pressure is controlled and he appears to be euvolemic. Continue current medications Dec, Secondary hyperparathyroidism (ICD-10 - N25.81) Calcium, PTH, vitamin D and phosphorus are within the goal. Dec, Atrophic kidney (ICD -10 - N26.1) He renal Atrophy possible due to atherosclerotic disease Dec, Gout (ICD-10 - M10.9) He den ies any recent gout flare. His uric acid is above the goal we will continue to monitor without any medication for now. Dec, Hyperkalemia (ICD-10 - E87.5) He has hyperkalemia due to the CKD and benazepril. have advised him low potassium diet and provide information about it [facility] Other 06-13-2023 Evaluation note* Encounter Date Diagnosis Assessment Notes Treatment Notes Treatment Clinical Notes Dec, CKD (chronic kidney disease) stage 4, GFR 15-29 ml/min (ICD-10 - N18.4) He has CKD due to longstanding hypertension and atherosclerotic renovascular disease. His baseline serum creatinine is 2.6-3.1 mg/dL. He has no evidence of hematuria but has mild proteinuria on UA. His renal ultrasound showed atrophic left kidney. I explained to him potential need of DETECTIVE AND INTELLIGENCE ANALYST in the near future. I discussed with him different option of DETECTIVE AND INTELLIGENCE ANALYST including transplant, PD and HD. He is interested in PD. I have referred him to the kidney smart classes Dec, Hyponatremia (ICD-10 - E87.1) He has hyponatremia due to the alcoholism or SIADH. His serum sodium is in low due to the noncompliance with the fluid restriction. I have advised him to limit her fluid intake to 50 ounces a day. He reported to have negative CT scan of the chest for lung cancer screening last year. I explained potential risk of cerebral edema, coma and seizure to him due to the critically low sodium. Advised him continue to follow with PCP for screening of the pulmonary nodule due to his smoking history. Advised him to quit smoking and alcohol. He can follow with PCP for referral program. 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 Continue current medications Dec, Secondary hyperparathyroidism (ICD-10 - N25.81) He has a secondary hyperparathyroidism due to the vitamin D deficiency. I will prescribe oral ergocalciferol 50,000 unit once weekly. Dec, Atrophic kidney (ICD -10 - N26.1) He renal Atrophy possible due to atherosclerotic disease Dec, Gout (ICD-10 - M10.9) He den ies any recent gout flare. His uric acid is above the goal we will continue to monitor without any medication for now. Dec, Hyperkalemia (ICD-10 - E87.5) He has hyperkalemia due to the CKD and benazepril. have advised him low potassium diet and provide information about it [facility] Other 07-28-2022 Evaluation note* Encounter Date Diagnosis Assessment Notes Treatment Notes Treatment Clinical Notes Jan, CKD (chronic kidney disease) stage 4, GFR 15-29 ml/min (ICD-10 - N18.4) He has CKD due to longstanding hypertension and atherosclerotic renovascular disease. His baseline serum creatinine is 2.6-3.1 mg/dL. He has no evidence of hematuria but has mild proteinuria on UA. His renal ultrasound showed atrophic left kidney. I explained to him potential need of DETECTIVE AND INTELLIGENCE ANALYST in the near future. I discussed with him different option of DETECTIVE AND INTELLIGENCE ANALYST including transplant, PD and HD. He is interested in PD. I advised him to quit smoking and work with PCP about it. Jan, Hyponatremia (ICD-10 - E87.1) He has hyponatremia either due to the alcoholism or SIADH. His serum sodium is in low due to the noncompliance with the fluid restriction. I have advised him to limit her fluid intake to 50 ounces a day. He reported to have negative CT scan of the chest for lung cancer screening. I explained potential risk of cerebral edema, coma and seizure to him due to the critically low sodium. 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 Continue current medications Jan, Secondary hyperparathyroidism (ICD-10 - N25.81) Calcium, PTH, vitamin D and phosphorus are within the goal. Jan, Atrophic kidney (ICD -10 - N26.1) He renal Atrophy possible due to atherosclerotic disease Jan, Gout (ICD-10 - M10.9) He den ies any recent gout flare. His uric acid is above the goal we will continue to monitor without any medication for now. Jan, Hyperkalemia (ICD-10 - E87.5) He has hyperkalemia due to the CKD. I have advised him low potassium diet and provide information about it [facility] Other 04-14-2022 Evaluation note* Encounter Date Diagnosis Assessment Notes Treatment Notes Treatment Clinical Notes Oct, CKD (chronic kidney disease) stage 4, GFR 15-29 ml/min (ICD-10 - N18.4) He has CKD due to longstanding hypertension and atherosclerotic renovascular disease. His serum creatinine is 3.1 mg/dL. His renal function is declining due to the progression of CKD. He has no evidence of hematuria but has mild proteinuria on UA. His renal ultrasound showed atrophic left kidney. I explained to him potential need of DETECTIVE AND INTELLIGENCE ANALYST in the near future. I discussed with him different option of DETECTIVE AND INTELLIGENCE ANALYST including transplant, PD and HD. He is interested in PD. I advised him to quit smoking and work with PCP about it. Oct, Hyponatremia (ICD-10 - E87.1) He has hyponatremia either due to the alcoholism or SIADH. His serum sodium is within the superior range. I have advised him to limit her fluid intake to 50 ounces a day. I again discussed with him that he will need CAT scan of the chest for screening of the lung cancer due to his long-term smoking history. He would like to discuss with PCP and would like him to address it. 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 Continue current medications Oct, Secondary hyperparathyroidism (ICD-10 - N25.81) Calcium and phosphorus are within the goal. His vitamin D is below the goal. Oct, Atrophic kidney (ICD -10 - N26.1) He renal Atrophy possible due to atherosclerotic disease Oct, Gout (ICD-10 - M10.9) He den ies any recent gout flare. His uric acid is above the goal we will continue to monitor without any medication for now. Oct, Hyperkalemia (ICD-10 - E87.5) He had hyperkalemia due to the CKD. I have advised him low potassium diet and provide information about it 1010data Other Evaluation noteNo InformationNort Good Seed Other [facility] general Narrative - Reported* Type Description Date Medical History HYPERTENSIVE KIDNEY DISEASE WITH STAGE 4 CHRONIC KIDNEY DISEASE Medical History HYPERTENSIVE NEPHROSCLEROSIS Medical History IDIOPATHIC GOUT Medical History HYPONATREMIA Medical History CAROTID STENOSIS RIGHT Medical History HYPERTRIGLYCERIDEMIA Medical History HYPERTENSION ESSENTIAL Medical History NICOTINE DEPENDENCE Medical History HYPERLIPIDEMIA Medical History BENIGN PROSTATIC HYPERPLASIA WIT H NOCTURIA Medical History BODY ITCHES ALL OVER Surgical History APPENDECTOMY Surgical History COLONOSCOPY Hospitalization History SEE ABOVE 1010data Other Histfaa general Narrative - Reported* Type Description Date Medical History HYPERTENSIVE KIDNEY DISEASE WITH STAGE 4 CHRONIC KIDNEY DISEASE Medical History HYPERTENSIVE NEPHROSCLEROSIS Medical History IDIOPATHIC GOUT Medical History HYPONATREMIA Medical History CAROTID STENOSIS RIGHT Medical History HYPERTRIGLYCERIDEMIA Medical History HYPERTENSION ESSENTIAL Medical History NICOTINE DEPENDENCE Medical History HYPERLIPIDEMIA Medical History BENIGN PROSTATIC HYPERPLASIA WIT H NOCTURIA Medical History BODY ITCHES ALL OVER Surgical History APPENDECTOMY Surgical History COLONOSCOPY 2019 Hospitalization History SEE ABOVE 1010data Other Histaxp general Narrative - Reported* Type Description Date Medical History HYPERTENSIVE KIDNEY DISEASE WITH STAGE 4 CHRONIC KIDNEY DISEASE Medical History HYPERTENSIVE NEPHROSCLEROSIS Medical History IDIOPATHIC GOUT Medical History HYPONATREMIA Medical History CAROTID STENOSIS RIGHT Medical History HYPERTRIGLYCERIDEMIA Medical History HYPERTENSION ESSENTIAL Medical History NICOTINE DEPENDENCE Medical History HYPERLIPIDEMIA Medical History BENIGN PROSTATIC HYPERPLASIA WIT H NOCTURIA Medical History BODY ITCHES ALL OVER Medical History NAUSEA Surgical History APPENDECTOMY Surgical History COLONOSCOPY 2019 Hospitalization History SEE ABOVE 1010data Other Reason for referral (narrative)* Reason *Waiting for appt Referral for EGD Diagnosis 1 Weight loss, uninten tional (R63.4) Diagnosis 2 Early satiety (R68.8 1) Diagnosis 3 Anemia, unspecified type (D64.9) Referral Organization [facility] Referring Provider First Name Jeremy Referring Provider Last Name Genaro Referring Provider Specialty Internal Me dicine Referred Organization [facility] Referred Provider Tanvir Mc Referred Address [address],[address] Referred Provider Specialty Gastroentero logy Referral Priority Routine General Notes Mr. April win y completed his wellness examination, where he was noted to have lost 20lbs in the past year. He was also found to have mild anemia, which may be secondary to CKD. He admits to daily episodes of nausea and early satiety. He drinks beer daily and continues to smoke cigarettes, placing him at increased risk for PUD and malignancies. I have initiated Omeprazole and counseled him on reducing his alcohol and tobacco use. Rosalie Weems 07/10/2023 09:14:25 AM >received today, referral faxed P 1010data Other Summary Purpose Family History No Family History Records FoundNo Family History Records Found Advance Directives No Advanced Directives Records FoundNo Advanced Directives Records Found Additional Source Comments (unrecognized sect ion and content) No Status Records FoundNo Status Records Found INFORMATION SOURCE (unrecogn ized section and content) DATE CREATED AUTHOR 07/19/2020 [facility] DATE CREATED AUTHOR AUTHOR'S ORGANIZ ATION 12/15/2021 [facility] REASON FOR VISIT (unrecogniz ed section and content) CKDCKDNo InformationCKD and hyponatremiaCKD and HTNCKD and HTNNo InformationNo InformationREFILLcheckupNo InformationrefillNo InformationLabsWellness/ BP CheckMAIL PPWCKD and HTN FOR RECORDS PERTAINING TO PATIENTS WHO ARE OR HAVE BEEN ENROLLED IN A CHEMICAL DEPENDENCY/SUBSTANCEABUSE PROGRAM, SOME INFORMATION MAY BE OMITTED. This clinical summary was aggregated from multiple sources. Caution should be exercised in using it in the provision of clinical care. This summary normalizes information from multiple sources, and as a consequence, information in this document may materially change the coding, format and clinical context of patient data. In addition, data may be omitted in some cases. CLINICAL DECISIONS SHOULD BE BASED ON THE PRIMARY CLINICAL RECORDS. [email or web address] provides no warranty or guarantee of the accuracy or completeness of information in this document.
--- NOTE | 2023-08-04 08:41 | CT_ITS ---
[address] [address] Patient Name: SABRINA MCFARLAND MRN: [id number] date: 1955 Sex: M Assigned Patient Location: CT Current Patient Location: CT Accession/Order Number: [id number] Exam Date: 08/04/2023 09:50 Report Date: 08/04/2023 13:05 At the request of: ROBE WASHBURN Procedure: CT lung screening low-dose EXAMINATION: CT lung screening low-dose HISTORY: Nicotine Dependence F17.210 COMPARISON: 12/08/2021 TECHNIQUE: Axial, Coronal, and Sagittal images were created without the administration of IV contrast material. Dose reduction techniques were achieved by using automated exposure control and/or adjustment of mA and/or kV according to patient size and/or use of iterative reconstruction technique. FINDINGS: LUNGS: No visible pulmonary disease. Mild emphysema with biapical predominance PLEURA: No mass, effusion, or pneumothorax. VASCULATURE: No abnormality. JORGE L: No mass or pathologic adenopathy. MEDIASTINUM: No mass or pathologic adenopathy. CARDIAC: No enlargement or pericardial effusion. Mild coronary atherosclerosis AORTA: No aneurysm or dissection. CHEST WALL: No mass or axillary adenopathy BONES: No bone lesion or fracture. LIMITED ABDOMEN: No suspicious findings. Limited images of the upper abdomen. OTHER: Negative. CT/CT lung screening low-dose IMPRESSION: LUNG SCREENING: Lung-RADS Category 1 Negative. No nodules and definitely benign nodules. Continue annual screening with LDCT in 12 months. Electronically authenticated by: ADELINA BISHOP Date: 08/04/2023 13:05
== END 2023-08-04 08:36 | disposition home or self-care (01) ==
LOC: CT 08:35
PROVIDERS: PCP Internal Medicine; Visit Provider Internal Medicine
DX: R63.4 Abnormal weight loss (principal); F17.210 Nicotine dependence, cigarettes, uncomplicated; D64.9 Anemia, unspecified
CPT/HCPCS: 71271; 74176

== ENCOUNTER 2024-01-05 14:17 | Outpatient (OUT) | payer MEDICARE, SELFPAY ==
[2024-01-05 14:42] LABS: Hematocrit 34.2 % (42.0-54.0); Hemoglobin 12.3 g/dL (14.0-18.0); Mean Corpuscular Hemoglobin 33.1 pg (25.9-34.0); Mean Corpuscular Volume 91.9 fL (80.0-94.0); Mean Platelet Volume 9.3 fL (9.5-13.5); Platelet Count 211 10^3/uL (150-450); Red Blood Count 3.72 10^6/uL (4.70-6.10); Red Cell Distribution Width 12.3 % (11.0-15.0); White Blood Count 7.8 10^3/uL (4.0-11.0)
[2024-01-05 15:40] LABS: Bilirubin Urine NEGATIVE (NEGATIVE); Blood Urine NEGATIVE (NEGATIVE); Clarity Urine CLEAR (CLEAR); Color Urine LT. YELLOW (YELLOW); Glucose Urine UA NEGATIVE (NEGATIVE); Ketones Urine NEGATIVE (NEGATIVE); Leukocyte Esterase Urine NEGATIVE (NEGATIVE); Nitrite Urine NEGATIVE (NEGATIVE); Protein Urine NEGATIVE (NEG/TRACE); Specific Gravity Urine <=1.005 (1.005-1.025)
[2024-01-05 15:46] LABS: Bacteria Urine NONE SEEN #/HPF (NONE SEEN); Cast Seen? NONE SEEN #/LPF (NONE SEEN); Crystals Seen? None Seen #/HPF (None Seen); Mucus Urine NONE SEEN (NONE SEEN); RBC Urine 0-2 #/HPF (0-2); Squamous Epithelial Cell Urine NONE SEEN #/LPF (NONE/RARE); WBC Urine 0-2 #/HPF (NONE SEEN)
[2024-01-05 15:50] LABS: Creatinine Urine Random 52.39 mg/dL (20.00-300.00); Protein Creatinine Ratio Urine 0.26; Total Protein Urine Random 13.4 mg/dL (<=11.9)
[2024-01-05 16:24] LABS: Albumin Level 3.9 g/dL (3.4-5.0); Anion Gap 13.5; BUN Creatinine Ratio 8.5; Calcium 8.9 mg/dL (8.5-10.1); Carbon Dioxide 24.4 mmol/L (21.0-32.0); Chloride 91 mmol/L (98-107); Estimated GFR (African America 32 (>=60); Estimated GFR (Non-African Ame 26 (>=60); Glucose 67 mg/dL (74-106); Phosphorus 3.3 mg/dL (2.6-4.7); Potassium 4.9 mmol/L (3.5-5.1); Uric Acid 6.8 mg/dL (3.5-7.2)
[2024-01-05 16:36] LABS: Sodium 124 mmol/L (136-145)
[2024-01-06 12:10] LABS: PTH, Intact 43 pg/mL (15-65)
== END 2024-01-05 14:18 | disposition home or self-care (01) ==
LOC: LAB 14:19
PROVIDERS: PCP Internal Medicine; Visit Provider Internal Medicine
DX: I12.9 Hypertensive chronic kidney disease with stage 1 through stage 4 chronic kidney disease, or unspecified chronic kidney disease (principal); N18.4 Chronic kidney disease, stage 4 (severe); E87.1 Hypo-osmolality and hyponatremia; N25.81 Secondary hyperparathyroidism of renal origin; M10.9 Gout, unspecified; E87.5 Hyperkalemia; D63.1 Anemia in chronic kidney disease
CPT/HCPCS: 36415; 80069; 81001; 82306; 82570; 82728; 83735; 83970; 84156; 84550; 85027

== ENCOUNTER 2024-05-17 13:46 | Outpatient (OUT) | payer MEDICARE, SELFPAY ==
[2024-05-17 11:58] LABS: Hematocrit 36.5 % (42.0-54.0); Mean Corpuscular HGB Conc 35.6 g/dL (29.9-35.2); Mean Corpuscular Hemoglobin 33.2 pg (25.9-34.0); Mean Corpuscular Volume 93.1 fL (80.0-94.0); Mean Platelet Volume 9.1 fL (9.5-13.5); Platelet Count 283 10^3/uL (150-450); Red Blood Count 3.92 10^6/uL (4.70-6.10); Red Cell Distribution Width 12.5 % (11.0-15.0); White Blood Count 8.6 10^3/uL (4.0-11.0)
[2024-05-17 12:13] LABS: Albumin Level 3.2 g/dL (3.4-5.0); Anion Gap 15.6; Calcium 8.4 mg/dL (8.5-10.1); Carbon Dioxide 24.1 mmol/L (21.0-32.0); Chloride 93 mmol/L (98-107); Estimated GFR (African America 33 (>=60 mL/min/1.73m^2); Estimated GFR (Non-African Ame 27 (>=60 mL/min/1.73m^2); Glucose 95 mg/dL (74-106); Phosphorus 3.4 mg/dL (2.6-4.7); Potassium 4.7 mmol/L (3.5-5.1); Sodium 128 mmol/L (136-145); Uric Acid 5.6 mg/dL (3.5-7.2)
[2024-05-17 12:38] LABS: Creatinine Urine Random 40.25 mg/dL (20.00-300.00); Protein Creatinine Ratio Urine 0.37; Total Protein Urine Random 14.8 mg/dL (<=11.9)
[2024-05-17 14:04] LABS: Bilirubin Urine NEGATIVE (NEGATIVE); Blood Urine NEGATIVE (NEGATIVE); Clarity Urine CLEAR (CLEAR); Color Urine LT. YELLOW (YELLOW); Glucose Urine UA NEGATIVE (NEGATIVE); Ketones Urine NEGATIVE (NEGATIVE); Leukocyte Esterase Urine NEGATIVE (NEGATIVE); Nitrite Urine NEGATIVE (NEGATIVE); Protein Urine NEGATIVE (NEG/TRACE); Specific Gravity Urine <=1.005 (1.005-1.025); Urobilinogen Urine 0.2 EU/dL (0.2-1.0)
[2024-05-17 14:15] LABS: Bacteria Urine TRACE #/HPF (NONE SEEN); Mucus Urine NONE SEEN (NONE SEEN); RBC Urine NONE SEEN #/HPF (0-2); Squamous Epithelial Cell Urine RARE #/LPF (NONE/RARE); WBC Urine NONE SEEN #/HPF (NONE SEEN)
[2024-05-17 14:16] LABS: Cast Seen? NONE SEEN #/LPF (NONE SEEN); Crystals Seen? None Seen #/HPF (None Seen); Urine Culture Indicated NO
[2024-05-18 11:09] LABS: PTH, Intact 51 pg/mL (15-65)
--- OUTSIDE RECORDS SUMMARY | 2024-05-18 14:10 | XMS_ITS | CCD ---
Author Organization [facility] Care Team Providers Care Preflight Mechanic Name Role Phone DR JEREMY LAM Consulting Unavailable GENARO, DR NAGEL Attending Unavailable GENARO, DR NAGEL Admitting Unavailable GENARO, DR NAGEL Primary Care Unavailable WEST, DR ADELINA Crews Consulting Unavailable Young Berrios Unavailable Jeremy Lam Unavailable Sixto Dobson Unavailable DO Jeremy Lam Primary Care Provider MD Sixto Dobson Attending Provider [phone] Sixto Dobson Attending Unavailable Sixto Dobson Admitting Unavailable Jeremy Lam Primary Care Unavailable JEREMY LAM Primary Care Physician Ada Soares Attending Unavailable Ada Soares Attending Unavailable Ada Soares Attending Unavailable JEREMY LAM Referring Unavailable Allergies Allergy Classification Reported Allergen(s) Allergy Type Date of Onset Reaction(s) Facility (2 sources) patient allergy list reviewed by nurse or physicia Propensity to adverse reactions 9 Comment:Done [employer] Other (1 source) No Known Medication Allergies; Translations: [No Known Medication Allergies] Propensity to adverse reactions (disorder) [facility] Repository Medications Current Medications Medication Drug Class(es) Dates Sig (Normalized) Sig (Original) amLODIPine 5 mg oral tablet (20 sources) Dihydropyridine Calcium Channel Inna Start: 02-02-2019 amLODIPine 5 mg Tab Refills(s) 0 Start Date: 08/27/23 Status: Ordered take 1 tablet by kamala th every twelve hours amLODIPine Besylate 5 MG 1 tablet Orally bid Active take 1 tablet by kamala th every twenty-four hours amLODIPine Besylate 10 MG 1 tablet Orall y Once a day Not-Taking/PRN aspirin 81 mg oral capsule (20 sources) Platelet Aggregation Inhibitor, Nonsteroidal Anti-inflammatory Drug Start: 08-27-2023 take 1 mg by mouth every twenty-four hours aspirin 81 mg oral capsule mg cap(s), Oral, q24hr, Refills(s) 0 Start Date: 08/27/23 Status: Ordered Start: 02-02-2019 take 81 mg by mouth once daily Aspirin Active 81 MG PO Daily February 02, 2019 12:00am atorvastatin 20 mg oral tablet (20 sources) HMG-CoA Reductase Inhibitor Start: 02-02-2019 atorvastatin 20 mg Tab Refills(s) 0 Start Date: 08/27/23 Status: Ordered benazepril hydrochloride 20 mg oral tablet (20 sources) Angiotensin Converting Enzyme Inhibitor Start: 08-27-2023 take 1 mg by mouth once daily benazepril 20 mg Tab mg tab(s), Oral, Daily, Refills(s) 0 Start Date: 08/27/23 Status: Ordered Start: 02-02-2019 End: 10-14-2023 take 20 mg by mouth once daily Benazepril Active 20 MG PO Daily 45 90 October 14, 2023 4:02pm take 1 tablet by kamala th every twenty-four hours Benazepril HCl 20 MG 1 tablet Orally Once a day Active take 0.5 tablet by m outh once daily Benazepril HCl 40 MG 1/2 tablet Orally Once a day Active ergocalciferol 1.25 mg oral capsule (20 sources) Provitamin D2 Compound Start: 01-15-2024 take 1250 ug by mouth every other week Ergocalciferol (Vitamin D2) Active 1250 MCG PO .every other week January 15, 2024 1:06pm Start: 08-27-2023 ergocalciferol 50,000 intl units Cap Refills(s) 0 Start Date: 08/27/23 Status: Ordered Start: 08-27-2023 ergocalciferol 50,000 intl units Cap Refills(s) 0 Start Date: 08/27/23 Status: Ordered Start: 01-09-2023 End: 01-15-2024 take 1250 ug by mouth every week Ergocalciferol (Vitamin D2) Discontinued 1250 MCG PO every week August 05, 2023 1:00am January 15, 2024 1:06pm Start: 01-09-2023 take 1 capsule by mo uth every week Ergocalciferol 1.25 MG (28530 UT) 1 capsule Orally Q week for 90 days Dec, Active famotidine 40 mg oral tablet (2 sources) Histamine-2 Receptor Antagonist Start: 09-23-2023 take 1 tablet by mouth once daily Famotidine (Pepcid) 40 mg tablet Active 40 MG PO Daily September 23, 2023 1:00am Take 1 tablet orally once a day labetalol hydrochloride 100 mg oral tablet (20 sources) beta-Adrenergic Inna Start: 08-05-2023 labetalol 100 mg Tab Refills(s) 0 Start Date: 08/27/23 Status: Ordered omeprazole 40 mg delayed release oral capsule (8 sources) Proton Pump Inhibitor Start: 08-27-2023 omeprazole 40 mg Cap-DR Refills(s) 0 Start Date: 08/27/23 Status: Ordered Start: 07-09-2023 take 1 capsule by [facility] once daily Omeprazole 40 MG 1 capsule 30 minutes before morning meal Orally Once a day for 30 days Jun, Active tamsulosin hydrochloride 0.4 mg oral capsule (4 sources) alpha-Adrenergic Inna Start: 09-12-2023 take 0.4 mg by mouth once daily Tamsulosin Active 0.4 MG PO Daily January 08, 2024 12:00am Problems Active Problems Problem Classification Problem Date Documented Date Episodic/Chronic Calculus of urinary tract (3 sources) Kidney stone; Translations: [Calculus of kidney] Onset: 4 Episodic Chronic kidney disease (20 sources) Chronic kidney disease stage 4; Translations: [Chronic kidney disease, stage 4 (severe)] Onset: 2 Resolved: 2 Chronic Chronic obstructive pulmonary disease and bronchiectasis (4 sources) Chronic bronchitis; Translations: [Unspecified chronic bronchitis] 01-06-2024 Chronic Deficiency and other anemia (7 sources) Anemia of renal disease; Translations: [Anemia in chronic kidney disease] Chronic Deficiency and other anemia (1 source) Anemia in chronic kidney disease Chronic Deficiency and other anemia (3 sources) Anemia, unspecified; Translations: [Anemia, unspecified] Episodic Deficiency and other anemia (2 sources) Anemia; Translations: [Anemia, unspecified] 01-08-2024 Episodic Disorders of lipid metabolism (20 sources) Hypercholesterolemia; Translations: [Pure hypercholesterolemia, unspecified] Chronic Esophageal disorders (4 sources) Gastroesophageal reflux disease; Translations: [Gastro-esophageal reflux disease without esophagitis] 01-06-2024 Chronic Essential hypertension (20 sources) Essential hypertension; Translations: [Essential (primary) hypertension] Chronic Fluid and electrolyte disorders (20 sources) Hypo-osmolality and hyponatremia; Translations: [Hyperkalemia] Onset: 2 Resolved: 2 Episodic Genitourinary symptoms and ill-defined conditions (3 sources) Delay when starting to pass urine; Translations: [Hesitancy of micturition] Onset: 4 Episodic Gout and other crystal arthropathies (20 sources) Gout; Translations: [Gout, unspecified] Onset: 2 Resolved: 2 Chronic Hyperplasia of prostate (11 sources) Lower urinary tract symptoms due to benign prostatic hypertrophy; Translations: [Benign prostatic hyperplasia with lower urinary tract symptoms] Onset: 7 Chronic Hypertension with complications and secondary hypertension (20 sources) Chronic kidney disease due to hypertension; Translations: [Hypertensive chronic kidney disease with stage 1 through stage 4 chronic kidney disease, or unspecified chronic kidney disease] Onset: 2 Resolved: 2 Chronic Nausea and vomiting (3 sources) Nausea with vomiting, unspecified; Translations: [Nausea and vomiting] Onset: 4 09-23-2023 Episodic Nephritis; nephrosis; renal sclerosis (20 sources) Nephrosclerosis; Translations: [Atrophy of kidney (terminal)] Onset: 2 Resolved: 2 Chronic Occlusion or stenosis of precerebral arteries (8 sources) Right carotid artery stenosis; Translations: [Occlusion and stenosis of right carotid artery] 08-22-2023 Chronic Other aftercare (1 source) Long-term current use of aspirin; Translations: [resident care manager (current) use of aspirin] Onset: 4 Episodic Other connective tissue disease (2 sources) Personal history of other diseases of the musculoskeletal system and connective tissue; Translations: [Personal history of other endocrine, metabolic, and immunity disorders] Episodic Other connective tissue disease (1 source) H/O: gout; Translations: [Personal history of other diseases of the musculoskeletal system and connective tissue] 01-06-2024 Episodic Other diseases of bladder and urethra (4 sources) Hypertrophy of bladder; Translations: [Other specified disorders of bladder] 08-27-2023 Chronic Other diseases of bladder and urethra (1 source) Other specified disorders of bladder Chronic Other diseases of bladder and urethra (1 source) Disorder of bladder; Translations: [Other specified disorders of bladder] Onset: 4 Chronic Other diseases of kidney and ureters (20 sources) Secondary hyperparathyroidism; Translations: [Secondary hyperparathyroidism of renal origin] 01-15-2024 Chronic Other diseases of kidney and ureters (7 sources) Secondary hyperparathyroidism of renal origin; Translations: [Secondary hyperparathyroidism (of renal origin)] Onset: 2 Resolved: 2 Chronic Other gastrointestinal disorders (3 sources) Occult blood in stools; Translations: [Other fecal abnormalities] 07-09-2023 Episodic Other nutritional; endocrine; and metabolic disorders (1 source) Abnormal weight loss Episodic Other screening for suspected conditions (not mental disorders or infectious disease) (2 sources) Encounter for screening for malignant neoplasm of prostate Episodic Residual codes; unclassified (4 sources) Tobacco user; Translations: [Tobacco use] Onset: 7 Episodic Residual codes; unclassified (1 source) Early satiety Episodic Residual codes; unclassified (2 sources) Early satiety; Translations: [Early satiety] 09-23-2023 Episodic Substance-related disorders (20 sources) Nicotine dependence, cigarettes, uncomplicated; Translations: [Nicotine dependence] Onset: 7 Chronic Unclassified (2 sources) Long-term current use of aspirin 08-27-2023 Past or Other Problems Problem Classification Problem [...] Results Test Name Value Interpretation Reference Range Facility Erythrocyte distribution wid th Auto (RBC) [Ratio]on 01-05-2024 Erythrocyte distribution width (RBC) [Ratio] 12.3 % 11.0-15.0 [facility] Estimated glomerular filtrat ion rate (GFR) non- Americanon 01-05-2024 GFR/1.73 sq M.predicted among non-blacks MDRD (S/P/Bld) [Vol rate/Area] 26 mL/min/{1.73_m2} >=60 [facility] Hematocrit Auto (Bld) [Volum e fraction]on 01-05-2024 Hematocrit (Bld) [Volume fraction] 34.2 % 42.0-54.0 [facility] Hemoglobin [Mass/volume] in Bloodon 01-05-2024 Hemoglobin (Bld) [Mass/Vol] 12.3 g/dL 14.0-18.0 [facility] Laboratory - Chemistry and C hemistry - challengeon 01-05-2024 Albumin [Mass/Vol] 3.9 g/dL 3.4-5.0 [facility] Calcium [Mass/Vol] 8.9 mg/dL 8.5-10.1 [facility] Chloride [Moles/Vol] 91 mmol/L 98-107 [facility] CO2 [Moles/Vol] 24.4 mmol/L 21.0-32.0 [facility] Creatinine [Mass/Vol] 2.46 mg/dL 0.70-1.30 [facility] Ferritin [Mass/Vol] 275.0 ng/mL 26.0-388.0 [facility] GFR/1.73 sq M.predicted MDRD (S/P/Bld) [Vol rate/Area] 32 mL/min/{1.73_m2} >=60 [facility] Glucose [Mass/Vol] 67 mg/dL 74-106 [facility] Magnesium [Mass/Vol] 2.0 mg/dL 1.8-2.4 [facility] Potassium [Moles/Vol] 4.9 mmol/L 3.5-5.1 [facility] Sodium [Moles/Vol] 124 mmol/L 136-145 [facility] Comment on above: RESULTS CALLED TO ANABELL VILLANUEVA CALLED TO []@BY Gil Stevenson MLT at 1636 Urate [Mass/Vol] 6.8 mg/dL 3.5-7.2 [facility] Urea nitrogen [Mass/Vol] 21.0 mg/dL 7.0-18.0 [facility] Urea nitrogen/Creatinine [Mass ratio] 8.5 mg/mg [facility] Bilirubin Ql (U) Negative NEGATIVE [facility] Glucose (U) [Mass/Vol] Negative NEGATIVE [facility] Ketones Ql (U) Negative NEGATIVE [facility] pH (U) 6.0 [pH] 5.0-9.0 [facility] Specific gravity (U) [Rel density] <=1.005 1.005-1.025 [facility] Urobilinogen Qn (U) 1.0 {Edgar'U}/dL 0.2-1.0 [facility] Laboratory - Specimen inform ationon 01-05-2024 Appearance (U) CLEAR CLEAR [facility] Color (U) LT. YELLOW YELLOW [facility] Laboratory - Urinalysison Leukocyte esterase Test strip Ql (U) Negative NEGATIVE [facility] Mucus Ql (Urine sed) NONE SEEN NONE SEEN [facility] Nitrite Ql (U) Negative NEGATIVE [facility] Protein (U) [Mass/Vol] 13.4 mg/dL <=11.9 [facility] Protein Ql (U) Negative NEG/TRACE [facility] Leukocytes [#/volume] correc mitchell for nucleated erythrocytes in Blood by Automated counon 01-05-2024 WBC corrected for nucl RBC Auto (Bld) [#/Vol] 7.8 10 3/uL 4.0-11.0 [facility] MCH Auto (RBC) [Entitic mass ]on 01-05-2024 MCH (RBC) [Entitic mass] 33.1 pg 25.9-34.0 [facility] MCHC Auto (RBC) [Mass/Vol]on 01-05-2024 MCHC (RBC) [Mass/Vol] 36.0 g/dL 29.9-35.2 [facility] MCV Auto (RBC) [Entitic vol] on 01-05-2024 MCV (RBC) [Entitic vol] 91.9 fL 80.0-94.0 [facility] No Panel Informationon 01-04 25-Hydroxy Vitamin D Total 77.4 ng/mL [facility] Comment on above: <20 ng/mL Vit D defi cient20-<30 ng/mL Vit D [id number] ng/mL Vit D sufficient>100 ng/mL Potential Toxicity Parathyroid Hormone (Intact) 43 pg/mL 15-65 [facility] Comment on above: Performed at: [facility] [email or web address] [facility] [employer] [address] [id number] Director: Yakov Sheikh PhD, Phone: [phone] Phosphorus Level 3.3 mg/dL 2.6-4.7 [facility] Urine Bacteria NONE SEEN #/HPF NONE SEEN [facility] Urine Occult Blood Negative NEGATIVE [facility] Urine Other Casts NONE SEEN #/LPF NONE SEEN [facility] Urine Other Crystals None Seen #/HPF None Seen [facility] Urine Random Creatinine 52.39 mg/dL 20.00-300.00 [facility] Urine RBC 0-2 #/HPF 0-2 [facility] Urine Squamous Epithelial Cells NONE SEEN #/LPF NONE/RARE [facility] Urine WBC 0-2 #/HPF NONE SEEN [facility] Platelet mean volume Auto (B ld) [Entitic vol]on 01-05-2024 Platelet mean volume (Bld) [Entitic vol] 9.3 fL 9.5-13.5 [facility] Platelets Auto (Bld) [#/Vol] on 01-05-2024 Platelets (Bld) [#/Vol] 211 10 3/uL 150-450 [facility] RBC Auto (Bld) [#/Vol]on RBC (Bld) [#/Vol] 3.72 10 6/uL 4.70-6.10 [facility] Serum or plasma anion gap de terminationon 01-05-2024 Anion gap [Moles/Vol] 13.5 mmol/L [facility] Urine protein/creatinine rat ioon 01-05-2024 Protein/Creatinine (U) [Ratio] 0.26 [facility] Consent for Procedure/Surger yon 09-15-2023 Consent for Procedure/Surgery [id number]#1.0 0TIFF [facility] Ambulatory Visit Summaryon 0 09-12-2023 Ambulatory Visit Summary BRADY KRISTINA SABRINA El :1955 Visit Date:09/12/2023 Ambulatory Visit Instructions Your Diagnosis Bladder wall thickening BPH with urinary obstruction Kidney stone Atrophic kidney Urinary hesitancy Smoker Aspirin long-term use Your Care Team Attending Physician - Rodger BRIDGES, Ada Morris Primary Care Physician - JEREMY LAM DO This Is Your Medications List Contact prescribing physician if questions or concerns amlodipine (amLODIPine 5 mg Tab) aspirin (aspirin 81 mg oral capsule) atorvastatin (atorvastatin 20 mg Tab) benazepril (benazepril 20 mg Tab) ergocalciferol (ergocalciferol 50,000 intl units Cap) labetalol (labetalol 100 mg Tab) omeprazole (omeprazole 40 mg Cap-DR) Procedures Performed Cystoscope (09/12/2023), Appendectomy, Colonoscopy, Tonsillectomy. Discharge Vitals Height 183 cm Height 72 in Weight 70.5 kg Weight 155.1 lb BMI 21.05 What to do next Scheduled Follow-Up Appointments Friday 10:00 AM EDT With: Rodger BRIDGES, Ada Morris Where: [facility] Urology Office/Clinic Noteon 09-12-2023 Urology Office/Clinic Note Chief Complaint Cysto HPI Staff Sinan is a 68 y.o. male here for cystoscopy. Previous Dx: atrophic kidney, bladder wall thickening, BPH w/ associated nocturia, kidney stone, CKD, urinary hesitancy. no urology procedure History of Present Illness Tests reviewed: none I have reviewed the previous health record information and history for this patient from Dr. Soares. I have reviewed and verified the staff HPI to be accurate for this encounter. Review of Systems PHQ Score Initial Depression Screen Score: 0 SCORE ROS - Provider Constitutional: denies weight loss, denies hot flashes. Eyes: denies eye problems. Gastrointestinal: denies nausea, denies vomiting. Cardiovascular: denies chest pain or angina. Integumentary: no dryness Musculoskeletal: denies musculoskeletal symptoms. ENMT: denies otolaryngeal symptoms. Respiratory: no shortness of breath. Heme/Lymph: denies easy bleeding tendency, denies easy bruising tendency. Psychiatric: no confusion, no anxiety. Genitourinary: See HPI. Physical Exam Vitals & Measurements HT: 72 in HT: 183 cm WT: 70.5 kg WT: 155.1 lb BMI: 21.05 General Appearance: alert, no distress, well nourished, well developed male. Genitourinary: normal scrotum, normal testes, normal urethra, normal epididymis, normal vas deferens/spermatic cord. Flank Pain: none. Bladder: nonpalpable. Procedure Operative Information Anesthesia Type: Local Procedure: Local Cystoscopy Complications: None Surgical risks, benefits, details of the procedure have been explained to the patient. Full informed consent has been obtained. Intraoperative Information Prepped: Patient is brought back to the endoscopy suite. Patient is placed in supine position. Patient prepped in the usual fashion with Betadine solution. 2% Xylocaine Jelly is placed per Urethra. After waiting several minutes, the Cystoscope is introduced. The Urethra is: Normal The Prostatic Urethra is: Mild hypertrophy, no intravesical median lobe The Bladder: No tumors or stones, Trabeculated: 1-2+, posterior wall outpouching The Ureteral orifices: Show efflux of clear urine Specimens Removed: None Removal: Cystoscope is removed. The patient tolerated it well. Postoperative Information Patient is discharged home. Follow up arranged. Assessment/Plan 68 year old male chronic tobacco user initially referred for bladder wall thickening by Dr Jeremy Lam. Here today for cystoscopy. 1. Bladder wall thickening (N32.89: Other specified disorders of bladder) CT AP wo Con @[facility] 08/04/23 - right urinary bladder wall thickening measuring 7.9mm (diffuse with minimal increase on right) No fam hx of prostate and bladder ca. States his dad had cancer, but he is unsure to what. Pt had IO cystoscopy without complications. No concern for malignancy. -See #2 2. BPH with urinary obstruction (N40.1: Benign prostatic hyperplasia with lower urinary tract symptoms) PSA 07/08/23 - 0.77 04/08/23 -0.96 Found to have mild prostatic hypertrophy per cysto today. However trabeculated bladder and with straining, hesitancy. Discussed treatment options including medications and procedures, risks/benefits of each discussed. Pt opted for medications at this time -Start Tamsulosin 0.4mg qd. Discussed the medication side effects, and the patient will monitor closely for these, as well as for symptom improvement. If severe side effects occur, the medication should be stopped and the office notified. -Follow up in 6 mths with PVR 3. Kidney stone (N20.0: Calculus of kidney) CT AP wo Con @[facility] 08/04/23 - 6.5mm LLP stone. -Dietary modifications including increased fluids -Discuss surveillance imaging at follow up 4. Atrophic kidney (N26.1: Atrophy of kidney (terminal)) CT AP wo Con @[facility] 08/04/23 - left atrophic kidney 07/08/23 - Cr 2.35, GFR 34 Unable to receive IV contrast due to CKD -Follows with Dr. Berrios 5. Urinary hesitancy (R39.11: Hesitancy of micturition) Hesitancy with weak stream since before the holidays. Uncomfortable at times, but not concerned. Denies frequency & nocturia. Denies leaking. PVR 08/27/23 - 11cc -See #2 6. Smoker (F17.200: Nicotine dependence, unspecified, uncomplicated) Daily cigarette smoker. Since 1979. Quit for a couple yrs at a time, but currently smoking 1 pack a day. Previously discussed smoking cessation given risk factor for urothelial ca. 7. 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 [1] Follow-up With When Contact Information Lue MD, Ada Morris, URL, [facility] [address], [facility] [place] [address] [phone] Additional Instructions: 6 mos (new med) Patient Education Cystoscopy Humera Farah, personally scribed for Dr. Soares on 09/12/2023 08:09:10. . Documentation recorded by the scribeHumera, accurately reflects the services(s) I performed and decisions made by me. Authenticated by Dr. Soares (more content not included)... [facility] Comment on above: Result Comment: Elec tronically Signed By: Ada Soares MD\.br\Date and Time Signed: 09/12/23 08:18 EST\.br\Electronically Co-Signed By: Humera Jones\.br\Date and Time Co-Signed: 09/12/23 08:09 EST Physician Referralon 024 Physician Referral [id number] 0TIFF [facility] Screenson 09-02-2023 Screens [id number]. 00TIFF [facility] Screens [id number]. 00TIFF [facility] Ambulatory Visit Summaryon 0 08-27-2023 Ambulatory Visit Summary SINAN GUEVARA :1955 Visit Date:08/27/2023 Ambulatory Visit Instructions Your Diagnosis Bladder wall thickening Kidney stone Atrophic kidney Urinary hesitancy Smoker Aspirin long-term use Your Care Team Attending Physician - Ada Soares MD Primary Care Physician - JEREMY LAM DO Referring Physician - JEREMY LAM DO This Is Your Medications List Contact prescribing physician if questions or concerns amlodipine (amLODIPine 5 mg Tab) aspirin (aspirin 81 mg oral capsule) atorvastatin (atorvastatin 20 mg Tab) benazepril (benazepril 20 mg Tab) ergocalciferol (ergocalciferol 50,000 intl units Cap) labetalol (labetalol 100 mg Tab) omeprazole (omeprazole 40 mg Cap-DR) Procedures Performed Appendectomy, Colonoscopy, Tonsillectomy. Discharge Vitals Heart Rate (Peripheral) 80 Respiratory Rate 16 Blood Pressure 128/74 Height 183 cm Height 72 in Weight 70.5 kg Weight 155.1 lb BMI 21.05 What to do next You Need to Schedule the Following Appointments Follow Up with Rodger BRIDGES, MCKAYLA Tipton, [facility] When: Comments: Schedule cysto Where: Medications What How Much When Instructions Unchanged amlodipine (amLODIPine 5 mg Tab) Contact prescribing physician if questions or concerns Unchanged aspirin (aspirin 81 mg oral capsule) Every 24 hours Contact prescribing physician if questions or concerns Unchanged atorvastatin (atorvastatin 20 mg Tab) Contact prescribing physician if questions or concerns Unchanged benazepril (benazepril 20 mg Tab) Every day Contact prescribing physician if questions or concerns Unchanged ergocalciferol (ergocalciferol 50,000 intl units Cap) Contact prescribing physician if questions or concerns Unchanged labetalol (labetalol 100 mg Tab) Contact prescribing physician if questions or concerns Unchanged omeprazole (omeprazole 40 mg Cap-DR) Contact prescribing physician if questions or concerns Allergies No Known Medication Allergies Problems Ongoing - Any problem that you are currently receiving treatment for. Aspirin long-term use Atrophic kidney Bladder wall thickening BPH associated with nocturia Carotid stenosis, right Hyperlipidemia Hypertension Hypertensive nephrosclerosis Hyponatremia Idiopathic gout Kidney stone Smoker Stage 4 chronic kidney disease due to hypertension Urinary hesitancy Patient Survey You may receive a survey via text or e-mail asking about your office visit. Please share your experience with us by completing your survey. We appreciate your feedback and thank you for choosing us for your care. Education Materials Cystoscopy Cystoscopy is a procedure that is used to help diagnose and sometimes treat conditions that affect the lower urinary tract. The lower urinary tract includes the bladder and the urethra. The urethra is the tube that drains urine from the bladder. Cystoscopy is done using a thin, tube-shaped instrument with a light and camera at the end (cystoscope). The cystoscope may be hard or flexible, depending on the goal of the procedure. The cystoscope is inserted through the urethra, into the bladder. Cystoscopy may be recommended if you have: ? Urinary tract infections that keep coming back. ? Blood in the urine (hematuria). ? An inability to control when you urinate (urinary incontinence) or an overactive bladder. ? Unusual cells found in a urine sample. ? A blockage in the urethra, such as a urinary stone. ? Painful urination. ? An abnormality in the bladder found during an intravenous pyelogram (IVP) or CT scan. Cystoscopy may also be done to remove a sample of tissue to be examined under a microscope (biopsy). Tell a health care provider about: ? Any allergies you have. ? All medicines you are taking, including vitamins, herbs, eye drops, creams, and qloh-uoq-ppevrmt medicines. ? Any problems you or family members have had with anesthetic medicines. ? Any blood disorders you have. ? Any surgeries you have had. ? Any medical conditions you have. ? Whether you are or may be . What are the risks? Generally, this is a safe procedure. However, problems may occur, including: ? Infection. ? Bleeding. ? Allergic reactions to medicines. ? Damage to other structures or organs. What happens before the procedure? Medicines Ask your health care provider about: ? Changing or stopping your regular medicines. This is especially important if you are taking diabetes medicines or blood thinners. ? Taking medicines such as aspirin and ibuprofen. These medicines can thin your blood. Do not take these medicines unless your health care provider tells you to take them. ? Taking fgqb-dna-usvatwq medicines, vitamins, herbs, and supplements. Tests You may have an exam or testing, such as: ? X-rays of the bladder, urethra, or kidneys. ? CT scan of the abdome (more content not included)... Normal [facility] Patient Educationon 08-27-19 Patient Education Nephrology Dietary Guidelines to Help Prevent Kidney Stones Kidney stones are deposits of minerals and salts that form inside your kidneys. Your risk of developing kidney stones may be greater depending on your diet, your lifestyle, the medicines you take, and whether you have certain medical conditions. Most people can lower their risks of developing kidney stones by following these dietary guidelines. Your dietitian may give you more specific instructions depending on your overall health and the type of kidney stones you tend to develop. What are tips for following this plan? Reading food labels ? Choose foods with no salt added or low-salt labels. Limit your salt (sodium) intake to less than 1,500 mg a day. ? Choose foods with calcium for each meal and snack. Try to eat about 300 mg of calcium at each meal. Foods that contain 200?500 mg of calcium a serving include: ? 8 oz (237 mL) of milk, nurijio-tyjahubbdept-h airy milk, and calcium-fortifiedfruit juice. Calcium-fortified means that calcium has been added to these drinks. ? 8 oz (237 mL) of kefir, yogurt, and soy yogurt. ? 4 oz (114 g) of tofu. ? 1 oz (28 g) of cheese. ? 1 cup (150 g) of dried figs. ? 1 cup (91 g) of cooked broccoli. ? One 3 oz (85 g) can of sardines or mackerel. Most people need 1,000?1,500 mg of calcium a day. Talk to your dietitian about how much calcium is recommended for you. Shopping ? Buy plenty of fresh fruits and vegetables. Most people do not need to avoid fruits and vegetables, even if these foods contain nutrients that may contribute to kidney stones. ? When shopping for convenience foods, choose: ? Whole pieces of fruit. ? Pre-made salads with dressing on the side. ? Low-fat fruit and yogurt smoothies. ? Avoid buying frozen meals or prepared deli foods. These can be high in sodium. ? Look for foods with live cultures, such as yogurt and kefir. ? Choose high-fiber grains, such as whole-wheat breads, oat bran, and wheat cereals. Cooking ? Do not add salt to food when cooking. Place a salt shaker on the table and allow each person to add their own salt to taste. ? Use vegetable protein, such as beans, textured vegetable protein (TVP), or tofu, instead of meat in pasta, casseroles, and soups. Meal planning ? Eat less salt, if told by your dietitian. To do this: ? Avoid eating processed or pre-made food. ? Avoid eating fast food. ? Eat less animal protein, including cheese, meat, poultry, or fish, if told by your dietitian. To do this: ? Limit the number of times you have meat, poultry, fish, or cheese each week. Eat a diet free of meat at least 2 days a week. ? Eat only one serving each day of meat, poultry, fish, or seafood. ? When you prepare animal proteins, cut pieces into small portion sizes. For most meat and fish, one serving is about the size of the palm of your hand. ? Eat at least five servings of fresh fruits and vegetables each day. To do this: ? Keep fruits and vegetables on hand for snacks. ? Eat one piece of fruit or a handful of berries with breakfast. ? Have a salad and fruit at lunch. ? Have two kinds of vegetables at dinner. ? You may be told to limit foods that are high in a substance called oxalate. These include: ? Spinach (cooked), rhubarb, beets, sweet potatoes, and [place] Zealander chard. ? Peanuts. ? Potato chips, telugu fries, and baked potatoes with skin on. ? Nuts and nut products. ? Chocolate. ? If you regularly take a diuretic medicine, make sure to eat at least 1 or 2 servings of fruits or vegetables that are high in potassium each day. These include: ? Avocado. ? Banana. ? [place], prune, carrot, or tomato juice. ? Baked potato. ? Cabbage. ? Beans and split peas. Lifestyle ? Drink enough fluid to keep your urine pale yellow. This is the most important thing you can do. Spread your fluid intake throughout the day. ? If you drink alcohol: ? Limit how much you have to: ? 0?1 drink a day for women who are not . ? 0?2 drinks a day for men. ? Know how much alcohol is in your drink. In the [place] one drink equals one 12 oz bottle of beer (355 mL), one 5 oz glass of wine (148 mL), or one 1? oz glass of hard liquor (44 mL). ? Lose weight if told by your health care provider. Work with your dietitian to find an eating plan and weight loss strategies that work best for you. General information ? Talk to your health care provider and dietitian about taking daily supplements. Depending on your health and the cause of your kidney stones, you may be told: ? Do not take high-dose supplements of vitamin C (1,000 mg a day or more). ? To take a calcium supplement. ? To take a daily probiotic supplement. ? To take other supplements such as magnesium, fish oil, or vitamin B6. ? Take scwr-rqr-ckrcirl and prescription medicines only as told by your health care provider. These include supplements. What foods sh (more content not included)... Normal [facility] Amphetamine Screen Ql (U)Ord ered By: Sixto Dobson on 08-05-2023 Amphetamines Ql (U) Negative Negative [facility] Barbiturates [Presence] in U rine by Screen methodOrdered By: Sixto Dobson on 08-05-2023 Barbiturates Screen Ql (U) Negative Negative [facility] Benzodiazepines Screen Ql (U )Ordered By: Sixto Dobson on 08-05-2023 Benzodiazepines Ql (U) Negative Negative [facility] Benzoylecgonine [Presence] i n Urine by Screen methodOrdered By: Sixto Dobson on 08-05-2023 Benzoylecgonine Screen Ql (U) Negative Negative [facility] Cannabinoids [Presence] in U rine by Screen methodOrdered By: Sixto Dobson on 08-05-2023 Cannabinoids Screen Ql (U) Positive Negative [facility] Comment on above: These are unconfirme d results and should not be used for legal purposes. Drug Cut-Off Concentration: AMPH 1000 ng/mL NORMA 200 ng/mL LUIS 200 ng/mL COCM 300 ng/mL OP 300 ng/mL PCP 25 ng/mL THC 20 ng/mL Drug Screen,Urineon 08-05-19 24 Amphetamine Screen,Urine Negative Normal Negative [facility] Comment on above: Performed By: #### U RDS #### [facility] [address] [place] [address] Barbiturate Screen,Urine Negative Normal Negative [facility] Comment on above: Performed By: #### U RDS #### [facility] [address] [place] [address] [place] Benzodiazepines Screen,Urine Negative Normal Negative [facility] Comment on above: Performed By: #### U RDS #### [facility] [address] [place] [address] [place] Cannabinoid Screen,Urine Positive High Negative [facility] Comment on above: Result Comment: Thes e are unconfirmed results and should not be used for legal purposes. Drug Cut-Off Concentration: AMPH 1000 ng/mL NORMA 200 ng/mL LUIS 200 ng/mL COCM 300 ng/mL OP 300 ng/mL PCP 25 ng/mL THC 20 ng/mL PERFORMED BY: [place] [address] PATHOLOGIST [employer] DARLENE BARBA M.D. Performed By: #### U RDS #### [address] Cocaine Screen,Urine Negative Normal Negative [facility] Comment on above: Performed By: #### U RDS #### [address] Opiate Screen,Urine Negative Normal Negative [facility] Comment on above: Performed By: #### U RDS #### [address] Phencyclidine Screen,Urine Negative Normal Negative [facility] Comment on above: Performed By: #### U RDS #### [address] Opiates [Presence] in Urine by Screen methodOrdered By: Sixto Dobson on 08-05-2023 Opiates Screen Ql (U) Negative Negative [facility] Phencyclidine Screen Ql (U)O rdered By: Sixto Dobson on 08-05-2023 Phencyclidine Ql (U) Negative Negative [facility] CT LUNG CANCER SCREENINGon 0 12-08-2021 CT [...] by: ADELINA BISHOP Date: 2021-12-08 11:21 Normal [facility] Vital Signs Date Time Vital Sign Value Performing Clinician Facility 01-15-2024 13:04-0400 Body height 182.88 cm [facility] 01-15-2024 13:04-0400 Body mass index (BMI) [Ratio] 21.5 kg/m2 [facility] 01-15-2024 13:04-0400 Body temperature 98.3 [degF] [facility] 01-15-2024 13:04-0400 Body weight 72.12 kg [facility] 01-15-2024 13:04-0400 Diastolic blood pressure 60 mm[Hg] [facility] 01-15-2024 13:04-0400 Heart rate 78 /min [facility] 01-15-2024 13:04-0400 Respiratory rate 16 /min [facility] 01-15-2024 13:04-0400 SaO2% (BldA) [Mass fraction] 96 % [facility] 01-15-2024 13:04-0400 Systolic blood pressure 132 mm[Hg] [facility] 01-08-2024 10:12-0400 Body height 182.88 cm [facility] 01-08-2024 10:12-0400 Body mass index (BMI) [Ratio] 21.2 kg/m2 [facility] 01-08-2024 10:12-0400 Body weight 70.87 kg [facility] 01-08-2024 10:12-0400 Diastolic blood pressure 69 mm[Hg] [facility] 01-08-2024 10:12-0400 Heart rate 66 /min [facility] 01-08-2024 10:12-0400 Respiratory rate 12 /min [facility] 01-08-2024 10:12-0400 Systolic blood pressure 127 mm[Hg] [facility] 08-05-2023 15:44-0500 Diastolic blood pressure 82 mm[Hg] DO Jeremy Ball Work Phone: [facility] 08-05-2023 15:44-0500 Heart rate 78 /min DO Jeremy Ball Work Phone: [facility] 08-05-2023 15:44-0500 Respiratory rate 16 /min DO Jeremy Ball Work Phone: [facility] 08-05-2023 15:44-0500 SaO2% (BldA) [Mass fraction] 97 % DO Jeremy Ball Work Phone: [facility] 08-05-2023 15:44-0500 Systolic blood pressure 157 mm[Hg] DO Jeremy Ball Work Phone: [facility] 08-05-2023 13:26-0500 Body height 182.88 cm DO Jeremy Ball Work Phone: [facility] 08-05-2023 13:26-0500 Body weight 68.03 kg DO Jeremy Ball Work Phone: [facility] 07-24-2023 12:40-0500 Body height 182.88 cm Young Yash Other [facility] [employer] Other 07-24-2023 12:40-0500 Body mass index (BMI) [Ratio] 21.83 kg/m2 Young Yash Other [employer] Other 07-24-2023 12:40-0500 Body temperature 98.6 [degF] Young Yash Other [employer] Other 07-24-2023 12:40-0500 Body weight 73.03 kg Young Yash Other [employer] Other 07-24-2023 12:40-0500 Diastolic blood pressure 62 mm[Hg] Young Yash Other [employer] Other 07-24-2023 12:40-0500 Respiratory rate 16 /min Young Yash Other [employer] Other 07-24-2023 12:40-0500 SaO2% (BldA) [Mass fraction] 100 % Young Yash Other [employer] Other 07-24-2023 12:40-0500 Systolic blood pressure 130 mm[Hg] Young Yash Other [employer] Other 07-09-2023 10:30-0500 Body height 182.88 cm Jeremy Ball Other [employer] Other 07-09-2023 10:30-0500 Body mass index (BMI) [Ratio] 21.13 kg/m2 Jeremy Ball Other [employer] Other 07-09-2023 10:30-0500 Body weight 70.67 kg Jeremy Ball Other [employer] Other 07-09-2023 10:30-0500 Diastolic blood pressure 69 mm[Hg] Jeremy Ball Other [employer] Other 07-09-2023 10:30-0500 Respiratory rate 12 /min Jeremy Ball Other [employer] Other 07-09-2023 10:30-0500 Systolic blood pressure 131 mm[Hg] Jeremy Ball Other [employer] Other 01-29-2023 13:30-0400 Body height 182.88 cm Jeremy Ball Other [employer] Other 01-29-2023 13:30-0400 Body mass index (BMI) [Ratio] 22.32 kg/m2 Jeremy Ball Other [employer] Other 01-29-2023 13:30-0400 Body weight 74.66 kg Jeremy Ball Other [employer] Other 01-29-2023 13:30-0400 Diastolic blood pressure 66 mm[Hg] Jeremy Ball Other [employer] Other 01-29-2023 13:30-0400 Respiratory rate 12 /min Jeremy Ball Other [employer] Other 01-29-2023 13:30-0400 Systolic blood pressure 119 mm[Hg] Jeremy Ball Other [employer] Other 01-07-2023 11:20-0400 Body height 182.88 cm Young Yash Other [employer] Other 01-07-2023 11:20-0400 Body mass index (BMI) [Ratio] 22.62 kg/m2 Young Yash Other [employer] Other 01-07-2023 11:20-0400 Body temperature 97.7 [degF] Young Yash Other [employer] Other 01-07-2023 11:20-0400 Body weight 75.66 kg Young Yash Other [employer] Other 01-07-2023 11:20-0400 Diastolic blood pressure 64 mm[Hg] Young Yash Other [employer] Other 01-07-2023 11:20-0400 Respiratory rate 18 /min Young Yash Other [employer] Other 01-07-2023 11:20-0400 SaO2% (BldA) [Mass fraction] 99 % Young Yash Other [employer] Other 01-07-2023 11:20-0400 Systolic blood pressure 127 mm[Hg] Young Yash Other [employer] Other 02-21-2022 11:20-0400 Body height 182.88 cm Young Yash Other [employer] Other 02-21-2022 11:20-0400 Body mass index (BMI) [Ratio] 23.95 kg/m2 Young Yash Other [employer] Other 02-21-2022 11:20-0400 Body temperature 96.8 [degF] Young Yash Other [employer] Other 02-21-2022 11:20-0400 Body weight 80.11 kg Young Yash Other [employer] Other 02-21-2022 11:20-0400 Diastolic blood pressure 62 mm[Hg] Young Yash Other [employer] Other 02-21-2022 11:20-0400 Respiratory rate 18 /min Young Yash Other [employer] Other 02-21-2022 11:20-0400 SaO2% (BldA) [Mass fraction] 98 % Young Yash Other [employer] Other 02-21-2022 11:20-0400 Systolic blood pressure 119 mm[Hg] Young Yash Other [employer] Other 11-08-2021 11:00-0400 Body height 182.88 cm Young Yash Other [employer] Other 11-08-2021 11:00-0400 Body mass index (BMI) [Ratio] 24.79 kg/m2 Young Yash Other [employer] Other 11-08-2021 11:00-0400 Body temperature 97.6 [degF] Young Yash Other [employer] Other 11-08-2021 11:00-0400 Body weight 82.92 kg Young Yash Other [employer] Other 11-08-2021 11:00-0400 Diastolic blood pressure 74 mm[Hg] Young Yash Other [employer] Other 11-08-2021 11:00-0400 Respiratory rate 18 /min Young Yash Other [employer] Other 11-08-2021 11:00-0400 SaO2% (BldA) [Mass fraction] 98 % Young Yash Other [employer] Other 11-08-2021 11:00-0400 Systolic blood pressure 139 mm[Hg] Young Yash Other [employer] Other Encounters Encounter Date Encounter Type Care Provider Facility Start: 03-19-2024 End: 03-19-2024 ambulatory Adazachery Soares Facility:[facility] Start: 03-19-2024 End: 03-19-2024 Patient encounter procedure Ada Soares [facility] Start: 01-15-2024 End: 01-15-2024 ambulatory [facility] Work Phone: Start: 01-15-2024 End: 01-15-2024 Patient encounter procedure [facility] Physician [facility] Richard Work Phone: Start: 01-08-2024 End: 01-08-2024 ambulatory [facility] Work Phone: Start: 01-08-2024 End: 01-08-2024 Patient encounter procedure [facility] Physician [facility] Work Phone: Start: 01-05-2024 Non-patient / Non-visit [facility] Physician [facility] Work Phone: Start: 10-13-2023 Non-patient / Non-visit [facility] Physician [facility] Work Phone: Start: 09-12-2023 End: 09-12-2023 ambulatory Adazachery Soares Facility:[facility] Start: 09-12-2023 End: 09-12-2023 Patient encounter procedure Ada Soares [facility] Start: 08-27-2023 End: 08-27-2023 ambulatory Ada Arturo Kourtneydebbie Facility:[facility] Start: 08-18-2023 End: 08-18-2023 ambulatory Young Yash Other [facility] [employer] Other Start: 08-18-2023 Telephone encounter Young Yash [facility] Start: 08-14-2023 ambulatory Ada Lue Facility:[facility] Start: 08-11-2023 ambulatory Ada Lue Facility:[facility] Start: 08-05-2023 End: 08-05-2023 ambulatory Sixto Dobson Facility:[facility] Start: 08-05-2023 Telephone encounter Jeremy Pascal [facility] Start: 08-05-2023 End: 08-05-2023 Admission to same day surgery center DO Jeremy Lam Work Phone: [facility] Work Phone: Start: 08-05-2023 End: 08-05-2023 ambulatory DO Jeremy Lam Work Phone: [facility] Work Phone: Start: 08-04-2023 End: 08-04-2023 ambulatory Young Yash Other [employer] Other Start: 08-04-2023 Telephone encounter Young Yash [facility] Start: 07-24-2023 End: 07-24-2023 ambulatory Young Yash Other [employer] Other Start: 07-24-2023 Office outpatient vi sit 25 minutes Young Yash [facility] Start: 07-17-2023 End: 07-17-2023 ambulatory Sixto Dobson Other [employer] Other Start: 07-17-2023 Telephone encounter Sixto Pascal [employer] Start: 07-09-2023 End: 07-09-2023 ambulatory Jeremy Lam Other [employer] Other Start: 07-09-2023 Patient encounter procedure Jeremy Lam [facility] Start: 07-07-2023 End: 07-07-2023 ambulatory Jeremy Lam Other [employer] Other Start: 07-07-2023 Telephone encounter Jeremy SPENCE [facility] Start: 04-08-2023 End: 04-08-2023 ambulatory Jeremy Lam Other [employer] Other Start: 04-08-2023 Telephone encounter Jeremy SPENCE [facility] Start: 02-06-2023 End: 02-06-2023 ambulatory Jeremy Lam Other [employer] Other Start: 02-06-2023 Telephone encounter Jeremy SPENCE [facility] Start: 01-29-2023 End: 01-29-2023 ambulatory Jeremy Lam Other [employer] Other Start: 01-29-2023 Office outpatient vi sit 15 minutes Jeremy Lam [facility] Start: 01-29-2023 Telephone encounter Jeremy SPENCE [facility] Start: 01-14-2023 End: 01-14-2023 ambulatory Jeremy Lam Other [employer] Other Start: 01-14-2023 Telephone encounter Jeremy SPENCE [facility] Start: 01-08-2023 End: 01-08-2023 ambulatory Young Yash Other [employer] Other Start: 01-08-2023 Telephone encounter Young Yash [facility] Start: 01-07-2023 End: 01-07-2023 ambulatory Young Yash Other [employer] Other Start: 01-07-2023 Office outpatient vi sit 25 minutes Young Yash [facility] Start: 01-07-2023 Telephone encounter Young Yash [facility] Start: 02-21-2022 End: 02-21-2022 ambulatory Young Yash Other [employer] Other Start: 02-21-2022 Office outpatient vi sit 25 minutes Young Yash [facility] Start: 02-21-2022 Telephone encounter Young Yash [facility] Start: 12-08-2021 End: 12-09-[address] JEREMY LAM Facility:[facility] Start: 11-29-2021 Adult health examination Jeremy Lam Other [employer] Other Start: 11-08-2021 End: 11-08-2021 ambulatory Young Yash Other [employer] Other Start: 11-08-2021 Office outpatient vi sit 25 minutes Young Yash [facility] Procedures Date Procedure Procedure Detail Performing Clinician Start: 09-12-2023 Cystoscope, device (physical object) Ada Soares Start: 08-05-2023 Esophagogastroduodenoscopy DO Jeremy Caro erlin Work Phone: Start: 06-13-2017 General examination of patient Jeremy Lam Other Start: 06-13-2017 Screening for malignant neoplasm of colon Jeremy Lam Other Appendectomy Ada Soares Colonoscopy Ada Soares Tonsillectomy Ada Soares Plan of Treatment Date Care Activity Detail Author Start: 08-05-2023 [facility] Renal function 2000 panel - Serum or Plasma [facility] Immunizations Immunization Date Immunization Notes Care Provider Fa yehuda 12-04-2020 COVID-19 Vaccine Mod poly - Documentation Purposes Only Jeremy Lam Other [facility] Comment on above: Result Comment: 2023: [id number] 11-06-2020 COVID-19 Vaccine Mod poly - Documentation Purposes Only Jeremy Lam Other [facility] Comment on above: Result Comment: 2023: [id number] 06-15-2020 zoster vaccine recombinant Jeremy Lam Other [facility] 04-12-2020 zoster vaccine recombinant Jeremy Lam Other [facility] Payers Date Payer Category Payer Private Health Insurance [id number] 2023 Medicare [id number] [id number] 2023 Self-pay [id number] 1959 Private Health Insurance [id number] 1955 Unknown [id number] 1955 Unknown [id number] 1955 Unknown [id number] [id number] 1955 Unknown [id number] [id number] 1955 Unknown [id number] [id number] [id number] 1955 Unknown [id number] 2.16.8 [id number] Private Health Insurance [id number] Unknown [id number] Social History Date Type Detail Facility Unknown if ever smoked [employer] Other Sex Assigned At [facility] Start: 08-05-2023 End: 01-15-2024 Tobacco smoking status NHIS Smoker (finding) [facility] Start: 1955 Sex Assigned At Male F [facility] Start: 08-27-2023 Tobacco smoking status Heavy t obacco smoker (finding) [facility] Tobacco smoking status Never [facility] Goals Date Patient Goal Desired Activity /State Functional Status Date Assessment Result Facility 09-12-2023 Functional Status N/A [facility] Clinical Notes 11-08-2021 to 09-12-2023 Note Date & Type Note Facility 09-12-2023 Hospital Discharg e instructions Patient Education 09/12/2023 08:06:25 Cystoscopy Cystoscopy Cystoscopy is a procedure that is used to help diagnose and sometimes treat conditions that affect the lower urinary tract. The lower urinary tract includes the bladder and the urethra. The urethra is the tube that drains urine from the bladder. Cystoscopy is done using a thin, tube-shaped instrument with a light and camera at the end (cystoscope). The cystoscope may be hard or flexible, depending on the goal of the procedure. The cystoscope is inserted through the urethra, into the bladder. Cystoscopy may be recommended if you have: Urinary tract infections that keep coming back. Blood in the urine (hematuria). An inability to control when you urinate (urinary incontinence) or an overactive bladder. Unusual cells found in a urine sample. A blockage in the urethra, such as a urinary stone. Painful urination. An abnormality in the bladder found during an intravenous pyelogram (IVP) or CT scan. Cystoscopy may also be done to remove a sample of tissue to be examined under a microscope (biopsy). Tell a health care provider about: Any allergies you have. All medicines you are taking, including vitamins, herbs, eye drops, creams, and edvr-dhh-nlidwqh medicines. Any problems you or family members have had with anesthetic medicines. Any blood disorders you have. Any surgeries you have had. Any medical conditions you have. Whether you are or may be . What are the risks? Generally, this is a safe procedure. However, problems may occur, including: Infection. Bleeding. Allergic reactions to medicines. Damage to other structures or organs. What happens before the procedure? Medicines Ask your health care provider about: Changing or stopping your regular medicines. This is especially important if you are taking diabetes medicines or blood thinners. Taking medicines such as aspirin and ibuprofen. These medicines can thin your blood. Do not take these medicines unless your health care provider tells you to take them. Taking ubcv-yfw-hozidcv medicines, vitamins, herbs, and supplements. Tests You may have an exam or testing, such as: X-rays of the bladder, urethra, or kidneys. CT scan of the abdomen or pelvis. Urine tests to check for signs of infection. General instructions Follow instructions from your health care provider about eating or drinking restrictions. Ask your health care provider what steps will be taken to help prevent infection. These steps may include: ?Washing skin with a germ-killing soap. ?Taking antibiotic medicine. Plan to have a responsible adult take you home from the hospital or clinic. What happens during the procedure? You will be given one or more of the following: ?A medicine to help you relax (sedative). ?A medicine to numb the area (local anesthetic). The area around the opening of your urethra will be cleaned. The cystoscope will be passed through your urethra into your bladder. Germ-free (sterile) fluid will flow through the cystoscope to fill your bladder. The fluid will stretch your bladder so that your health care provider can clearly examine your bladder chavez. Your doctor will look at the urethra and bladder. Your doctor may take a biopsy or remove stones. The cystoscope will be removed, and your bladder will be emptied. The procedure may vary among health care providers and hospitals. What can I expect after the procedure? After the procedure, it is common to have: Some soreness or pain in your abdomen and urethra. Urinary symptoms. These include: ?Mild pain or burning when you urinate. Pain should stop within a few minutes after you urinate. This may last for up to 1 week. ?A small amount of blood in your urine for several days. ?Feeling like you need to urinate but producing only a small amount of urine. Follow these instructions at home: Medicines Take klct-vas-mgyiycw and prescription medicines only as told by your health care provider. If you were prescribed an antibiotic medicine, take it as told by your health care provider. Do not stop taking the antibiotic even if you start to feel better. General instructions Return to your normal activities as told by your health care provider. Ask your health care provider what activities are safe for you. If you were given a sedative during the procedure, it can affect you for several hours. Do not drive or operate machinery until your health care provider says that it is safe. Watch for any blood in your urine. If the amount of blood in your urine increases, call your health care provider. Follow instructions from your health care provider about eating or drinking restrictions. If a tissue sample was removed for testing (biopsy) during your procedure, it is up to you to get your test results. Ask your health care provider, or the department that is doing the test, when your results will be ready. Drink enough fluid to keep your urine pale yellow. Keep all follow-up visits. This is important. Contact a health care provider if: You have pain that gets worse or does not get better with medicine, especially pain when you urinate. You have trouble urinating. You have more blood in your urine. Get help right away if: You have blood clots in your urine. You have abdominal pain. You have a fever or chills. You are unable to urinate. Summary Cystoscopy is a procedure that is used to help diagnose and sometimes treat conditions that affect the lower urinary tract. Cystoscopy is done using a thin, tube-shaped instrument with a light and camera at the end. After the procedure, it is common to have some soreness or pain in your abdomen and urethra. Watch for any blood in your urine. If the amount of blood in your urine increases, call your health care provider. If you were prescribed an antibiotic medicine, take it as told by your health care provider. Do not stop taking the antibiotic even if you start to feel better. This information is not intended to replace advice given to you by your health care provider. Make sure you discuss any questions you have with your health care provider. Document Revised: 03/27/2022 Document Reviewed: 02/23/2021 [employer] Patient Education 2022 [employer]. Follow Up Care 08/27/2023 10:15:46 With:Rodger BRIDGES, MCKAYLA Tipton, URO Address: [address], [place] [address]- [phone] When: Unknown Comments:6 mos (new med) [facility] Alejandro 09-12-2023 Note Urology Cystoscopy Cystoscopy is a procedure that is used to help diagnose and sometimes treat conditions that affect the lower urinary tract. The lower urinary tract includes the bladder and the urethra. The urethra is the tube that drains urine from the bladder. Cystoscopy is done using a thin, tube-shaped instrument with a light and camera at the end (cystoscope). The cystoscope may be hard or flexible, depending on the goal of the procedure. The cystoscope is inserted through the urethra, into the bladder. Cystoscopy may be recommended if you have: ? Urinary tract infections that keep coming back. ? Blood in the urine (hematuria). ? An inability to control when you urinate (urinary incontinence) or an overactive bladder. ? Unusual cells found in a urine sample. ? A blockage in the urethra, such as a urinary stone. ? Painful urination. ? An abnormality in the bladder found during an intravenous pyelogram (IVP) or CT scan. Cystoscopy may also be done to remove a sample of tissue to be examined under a microscope (biopsy). Tell a health care provider about: ? Any allergies you have. ? All medicines you are taking, including vitamins, herbs, eye drops, creams, and xwap-wfl-zguxudm medicines. ? Any problems you or family members have had with anesthetic medicines. ? Any blood disorders you have. ? Any surgeries you have had. ? Any medical conditions you have. ? Whether you are or may be . What are the risks? Generally, this is a safe procedure. However, problems may occur, including: ? Infection. ? Bleeding. ? Allergic reactions to medicines. ? Damage to other structures or organs. What happens before the procedure? Medicines Ask your health care provider about: ? Changing or stopping your regular medicines. This is especially important if you are taking diabetes medicines or blood thinners. ? Taking medicines such as aspirin and ibuprofen. These medicines can thin your blood. Do not take these medicines unless your health care provider tells you to take them. ? Taking udpo-mpc-jrrduvh medicines, vitamins, herbs, and supplements. Tests You may have an exam or testing, such as: ? X-rays of the bladder, urethra, or kidneys. ? CT scan of the abdomen or pelvis. ? Urine tests to check for signs of infection. General instructions ? Follow instructions from your health care provider about eating or drinking restrictions. ? Ask your health care provider what steps will be taken to help prevent infection. These steps may include: ? Washing skin with a germ-killing soap. ? Taking antibiotic medicine. ? Plan to have a responsible adult take you home from the hospital or clinic. What happens during the procedure? ? You will be given one or more of the following: ? A medicine to help you relax (sedative). ? A medicine to numb the area (local anesthetic). ? The area around the opening of your urethra will be cleaned. ? The cystoscope will be passed through your urethra into your bladder. ? Germ-free (sterile) fluid will flow through the cystoscope to fill your bladder. The fluid will stretch your bladder so that your health care provider can clearly examine your bladder chavez. ? Your doctor will look at the urethra and bladder. Your doctor may take a biopsy or remove stones. ? The cystoscope will be removed, and your bladder will be emptied. The procedure may vary among health care providers and hospitals. What can I expect after the procedure? After the procedure, it is common to have: ? Some soreness or pain in your abdomen and urethra. ? Urinary symptoms. These include: ? Mild pain or burning when you urinate. Pain should stop within a few minutes after you urinate. This may last for up to 1 week. ? A small amount of blood in your urine for several days. ? Feeling like you need to urinate but producing only a small amount of urine. Follow these instructions at home: Medicines ? Take cjwn-msl-mjqjwaj and prescription medicines only as told by your health care provider. ? If you were prescribed an antibiotic medicine, take it as told by your health care provider. Do not stop taking the antibiotic even if you start to feel better. General instructions ? Return to your normal activities as told by your health care provider. Ask your health care provider what activities are safe for you. ? If you were given a sedative during the procedure, it can affect you for several hours. Do not drive or operate machinery until your health care provider says that it is safe. ? Watch for any blood in your urine. If the amount of blood in your urine increases, call your health care provider. ? Follow instructions from your health care provider about eating or drinking restrictions. ? If a tissue sample was removed for testing (biopsy) during your procedure, it is up to you to get your test results. Ask your health care provider, or the department th (more content not included)... [facility] 08-27-2023 Note Chief Complaint Referral *Bladder Wall Thickening HPI Staff [facility] referral for bladder wall thickening by Dr Jeremy Lam. Current PSA done 07/08/23 was 0.77 and previous done 04/08/[address] done 08/04/23 showed left atrophic kidney, 6.5 nonobstructive nephrolithiasis in the inferior pole of left kidney and right urinary bladder wall measuring 7.9mm. CT was ordered due to 20 pound weight loss over last year & nausea. Pt denies Family Hx of Prostate & Bladder Cancer. States his dad had cancer, but he is unsure to what. Daily cigarette smoker. Since 1979. Quit for a couple yrs at a time, but currently smoking 1 pack a day. Denies visible blood in urine. Hesitancy with weak stream since before the Holidays. Uncomfortable at times, but not concerned. Denies frequency & nocturia. Denies leaking. History of Present Illness Tests reviewed: reviewed UA and External Records including CT scan, labs, UA, notes I have reviewed the previous health record information and history for this patient from External Provider. I have reviewed and verified the staff HPI to be accurate for this encounter. There have been no associated fever, chills, flank pain, or blood in the urine. Denies any urinary infections since last encounter. Review of Systems PHQ Score Initial Depression Screen Score: 0 SCORE ROS - Provider Constitutional: denies weight loss, denies hot flashes. Eyes: denies eye problems. Gastrointestinal: denies nausea, denies vomiting. Cardiovascular: denies chest pain or angina. Integumentary: no dryness Musculoskeletal: denies musculoskeletal symptoms. ENMT: denies otolaryngeal symptoms. Respiratory: no shortness of breath. Heme/Lymph: denies easy bleeding tendency, denies easy bruising tendency. Psychiatric: no confusion, no anxiety. Genitourinary: See HPI. Physical Exam Vitals & Measurements HR: 80(Peripheral) RR: 16 BP: 128/74 HT: 72 in HT: 183 cm WT: 70.5 kg WT: 155.1 lb BMI: 21.05 General Appearance: alert, no distress, well nourished, well developed male. Head: normocephalic . Eyes: normal orbit and globe. ENMT: normal examination of external ears. Chest: symmetric chest rise, respirations non labored. Cardiovascular: regular rate and rhythm. Abdomen: soft, non distended, no tenderness Genitourinary: Flank Pain: none. Bladder: nonpalpable. Skin: warm, dry, no bruising. Psychiatric: cooperative, affect appropriate for age, normal judgement, euthymic mood. Assessment/Plan 68 year old male chronic tobacco user referred for bladder wall thickening by Dr Jeremy Lam. PSA 07/08/23 - 0.77 04/08/23 -0.96 1. Bladder wall thickening (N32.89: Other specified disorders of bladder) CT AP wo Con @[facility] 08/04/23 - right urinary bladder wall thickening measuring 7.9mm (diffuse with minimal increase on right) Pt denies Family Hx of Prostate & Bladder Cancer. States his dad had cancer, but he is unsure to what. Pt states that the CT was ordered due to 20 pound weight loss over last year & nausea. Denies any issues with BM's. Denies visible blood in urine. UA today shows trace intact blood and no signs of infection Has irritative voiding sx. Discussed imaging results with pt. Advised pt that we will need to do a cysto to possibly determine what is causing the bladder wall thickening and we will hold off on getting a any more imaging done do to his kidney function. May need BL RPG intraop. Counseled pt on the risks of the bladder wall thickening including potential malignancy All questions/concerns were discussed. Pt to call the office if he encounters any issues prior. Pt acknowledges understanding. -Will schedule cystoscopy, possible cytology based on findings. The risks and benefits for cystoscopy have been discussed. The risks include bleeding, infection, and irritation of the bladder and urinary channel, among others. The patient, after being informed of procedural details and after questions have been answered, wishes to proceed. Full informed consent has been obtained. Will order Local anesthesia. -Consider BL RPG intraop based on cysto findings 2. Kidney stone (N20.0: Calculus of kidney) CT AP wo Con @[facility] 08/04/23 - 6.5mm LLP stone Discussed imaging report with pt, does have a stone noted, will continue to monitor. Likely due to atrophic kidney on left. Counseled pt on the dietary modifications to prevent future stones. Advised pt to go to the ER if he starts to feel pain or signs of passing the stone. Advised pt to drink plenty of fluids. -Dietary modifications including increased fluids 3. Atrophic kidney (N26.1: Atrophy of kidney (terminal)) CT AP wo Con @[facility] 08/04/23 - left atrophic kidney 07/08/23 - Cr 2.35, GFR 34 Unable to receive IV contrast due to CKD -Follows with Dr. Berrios 4. Urinary hesitancy (R39.11: Hesitancy of micturition) Hesitancy with weak stream since before the Holidays. Uncomfortable at times, but not concerned. Denies frequency & nocturia. Denies leakin (more content not included)... [facility] Comment on above: Result Comment: Elec tronically Signed By: Rodger BRIDGES, Ada Morris\.br\Date and Time Signed: 08/27/23 09:44 EST\.br\Electronically Co-Signed By: Dalia Campos\.br\Date and Time Co-Signed: 08/27/23 09:16 EST 08-05-2023 Procedure note [facility] 08-05-2023 Evaluation note Encounter Date Diagnosis Assessment Notes Jul, Bladder wall thickening (ICD-10 - N32.89) Denies dysuria, polyuria or hematuria. Due to findings, referral for cystoscopy has been initiated. [employer] Other 01-08-2024 Evaluation note* Encounter Date Diagnosis Assessment Notes Treatment Notes Treatment Clinical Notes Jul, Cigarette nicotine dependence without complication (ICD-10 - F17.210) LDCT: 11/2021, 07/2023 [employer] Other 12-28-2023 Evaluation note* Encounter Date Diagnosis Assessment Notes Treatment Notes Treatment Clinical Notes Jun, CKD (chronic kidney disease) stage 4, GFR 15-29 ml/min (ICD-10 - N18.4) He has CKD due to longstanding hypertension and atherosclerotic renovascular disease. His baseline serum creatinine is 2.6 mg/dL. He has no evidence of hematuria but has mild proteinuria on UA. His renal ultrasound showed atrophic left kidney. I explained to him potential need of RESIDENTIAL LEASING MANAGER in the near future. I discussed with him different option of RESIDENTIAL LEASING MANAGER including transplant, PD and HD. He is [...] unit every other weekly. Jun, Atrophic kidney (ICD -10 - N26.1) He has renal Atrophy possibly due to atherosclerotic disease Jun, Gout (ICD-10 - M10.9) He den ies [...] information about it Jun, Anemia of renal dise ase (ICD-10 - D63.1) He has anemia due to the CKD but his hemoglobin within the goal. He has adequate iron stores, B12 and folate level. No need for LUPE. [employer] Other 12-13-2023 Evaluation note* Encounter Date Diagnosis [...] (ICD-10 - Z12.5) Yearly GARRISON and PSA [employer] Other [id number] Evaluation note* Encounter Date Diagnosis Assessment Notes [...] adequate fluid balance and to avoid dehydration. [employer] Other 07-13-2023 Evaluation note* Encounter Date Diagnosis Assessment Notes Treatment Notes Treatment Clinical Notes Jan, Elevated cholesterol (ICD-10 - E78.00) [employer] Other 07-05-2023 Evaluation note* Encounter Date Diagnosis [...] to respiratory infections, vascular disease and cancers. 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 I discussed with him different option of RESIDENTIAL LEASING MANAGER including transplant, PD and HD. He is [...] potassium diet and provide information about it [employer] Other 06-13-2023 Evaluation note* Encounter Date Diagnosis [...] I explained to him potential need of RESIDENTIAL LEASING MANAGER in the near future. I discussed with him different option of RESIDENTIAL LEASING MANAGER including transplant, PD and HD. He is [...] potassium diet and provide information about it [employer] Other 07-28-2022 Evaluation note* Encounter Date Diagnosis [...] I explained to him potential need of RESIDENTIAL LEASING MANAGER in the near future. I discussed with him different option of RESIDENTIAL LEASING MANAGER including transplant, PD and HD. He is [...] potassium diet and provide information about it [employer] Other 04-14-2022 Evaluation note* Encounter Date Diagnosis [...] I explained to him potential need of RESIDENTIAL LEASING MANAGER in the near future. I discussed with him different option of RESIDENTIAL LEASING MANAGER including transplant, PD and HD. He is [...] potassium diet and provide information about it [employer] Other Evaluation + Plan note Future Appointments Appointment Date:03/19/2024 10:00:00 AM Scheduled Provider:Ada Soares MD Location:[facility] Appointment Type:URO Office Visit [facility] Evaluation noteNo InformationNort [employer] Other Evaluation noteNo assessment information available [facility] Work Phone: Evaluation note* Diagnosis Onset Date Resolution Status Anemia acute Carotid stenosis, right acut e Chronic bronchitis acute Chronic kidney disease acute GERD (gastroesophageal reflux disease) acute H/O: gout acute Hypercholesterolemia acute Hypertension acute Hyponatremia acute Nicotine addiction acute [facility] Work Phone: Evaluation note* Diagnosis Onset Date Resolution Status Anemia acute Carotid stenosis, right acut e Chronic bronchitis acute Chronic kidney disease acute GERD (gastroesophageal reflux disease) acute Hypercholesterolemia acute Hypertension acute Hyponatremia acute Nicotine addiction acute Anemia of renal disease acut e Atrophic kidney acute CKD (chronic kidney disease) stage 4, GFR 15-29 ml/min acute Hyperlipidemia acute [id number] acute Hyponatremia acute Secondary hyperparathyroidism acute [facility] Work Phone: History and physical note Author Sixto Dobson [facility] August 05, 2023 3:00pm Note Date/Time August 05, 2023 3: 00pm [facility] [address] [place] [address] Gastroenterology H&P Signed Patient: Sabrina Guevara MR#: [id number] : 1955 Acct:[id number] Age/Sex: 68 / M Adm Date: 4 Loc: Room: Type: [facility] Attending Dr: Sixto Dobson MD Copies to: DO Sixto Carson MD~ Date of Service: 08/05/2023 HISTORY & PHYSICAL: Patient's history with special attention to the cardiovascular, pulmonary systems and the current problem was reviewed with the patient immediately prior to the procedure. Present medications and doses reviewed in the EMR. Allergies and pertinent laboratory tests were also reviewedat this time in the EMR. The physical examination, as below, was then performed. Indication, assessment and HPI: 68-year-old male referred for early satiety, nausea and vomiting Family history of GI malignancy? No PHYSICAL EXAMINATION Mouth and Pharynx : Moist mucus membranes, normal dentition Cardiac: Regular rate, regular rhythm Pulmonary: Clear to auscultation bilaterally, no wheezing Neurological: Alert and oriented x3, no focal deficits noted Abdomen: Abdomen soft, non-tender REVIEW OF SYSTEMS Constitutional: Denies malaise, fevers Cardiovascular: Denies chest pain, palpitations Respiratory: Denies shortness of breath, wheezing Gastrointestinal: Per HPI Genitourinary: Denies dysuria, polyuria Musculoskeletal: Denies joint swelling, joint stiffness Neurological: Denies numbness, tingling Integumentary: Denies rashes, skin lesions Endocrine: Denies fatigue, weight loss Written informed consent obtained from the patient. Risks (including but not limited to perforation, infection, bloating, bleeding, need for emergent surgeryand loss of life), benefits and alternatives explained and questions answered. The patient verbalized understanding. Based on history patient is an appropriate candidate for the procedure. Sixto Dobson MD Documented By: Sixto Dobson MD 08/05/23 1500 Signed By: <Electronically signed by Sixto Dobson MD> 08/05/23 1500 [facility] Work Phone: [facility] Narrative - Reported* Type Description Date [...] Surgical History COLONOSCOPY Hospitalization History SEE ABOVE [employer] Other [facility] Narrative - Reported* Type Description Date [...] History COLONOSCOPY 2019 Hospitalization History SEE ABOVE [employer] Other Hishjfd general Narrative - Reported* Type Description Date [...] History COLONOSCOPY 2019 Hospitalization History SEE ABOVE [employer] Other Hisgged general Narrative - Reported* Type Description Date [...] Surgical History APPENDECTOMY Surgical History COLONOSCOPY 2019 Surgical History EGD 07/2023 Hospitalization History SEE ABOVE [employer] Other Hospital course Narrative No data available for this section [facility] Discharge instructions Additional Instructions DISCHARGE INSTRUCTIONS FOR UPPER ENDOSCOPY WHAT TO EXPECT: - You may feel full, gassy or cramping after your procedure. In some cases, this may be from a few hours to a day. Walking may help relieve the discomfort. - Your throat may feel sore today from the scope that the doctor passed through your throat to visualize your stomach. Take a throat lozenge or suck on ice to ease the discomfort. - You may notice some streaks of blood in your sputum if the doctor has taken a biopsy. - You should begin to recover from anesthesia within 1 hour of the procedure, however may feel groggy for the next 24 hours. DO's AND DON'Ts: - Call your doctor right away if you have a hard abdomen, severe pain, vomiting or if you cough up large amounts of blood. - Call your doctor if you develop any rashes, hives or difficulty breathing. - If you take 81 mg aspirin for your heart it is safe to resume this medication. - If you take other blood thinner medications your doctor will instruct you when these can safely be resumed. - Do NOT drive for 24 hours. - Do NOT operate machinery such as power tools, N-1-1n mowers, snow blowers, sewing machines, etc. for 24 hours. - Avoid alcoholic beverages and drugs for allergies, nerves, or sleep. - Do NOT stay alone. Do NOT leave your child unattended. - Do NOT make important personal or business decisions or sign any legal documents. - Eat solid foods and drink liquids in smaller amounts than usual until normal appetite returns. If you should experience an upset stomach, liquids high in sugar content (soda, Mike-Aid, non-acid juices) are recommended. - Do NOT smoke. - Do take it easy today. You need not stay in bed, but avoid strenuous activities such as jogging or working out. FOLLOW UP & RECOMMENDATIONS: -We would recommend complete cessation of marijuana products for 4 weeks. -The GI office will get you a follow-up appointment. -Notify the doctor if you have any problems. -Follow up with PCP. -Office number [phone].[facility] Work Phone: Hospital Discharge instructions No data available for this section [facility] Progress note No data available for this section [facility] Reason for referral (narrative)* Reason *Waiting for appt Referral for EGD Diagnosis 1 Weight loss, uninten tional (R63.4) Diagnosis 2 Early satiety (R68.8 1) Diagnosis 3 Anemia, unspecified type (D64.9) Referral Organization [facility] Referring Provider First Name Jeremy Referring Provider Last Name Genaro Referring Provider Specialty Internal Me dicine Referred Organization [facility] Gastroenterolo gy Referred Provider Tanvir Mc Referred Address [address] [address] ,[place], [place],[address] Referred Provider Specialty Gastroentero logy Referral Priority [...] 09:14:25 AM >received today, referral faxed P [employer] Other Summary Purpose Family History No Family History Records Found Relationship Condition Age at Onset Recorded Date/T miroslava father Malignant neoplasm Unknown Relationship Condition Age at Onset Recorded Date/T miroslava father Malignant neoplasm Unknown Unknown Not Specified Unknown Advance Directives No Advanced Directives Records Found Advance Directive Response Recorded Date/ Time Advance Directives No [place] 28th, 20 19 11:30am Advance Directive Response Recorded Date/ Time Advance Directives No January 22 12:30pm Chief Complaint and Reason for Visit Chief Complaint Early Satiety Chief Complaint Amb Documentation 6 month follow up Reason for Visit Anemia Carotid stenosis, right Chronic bronchitis Chronic kidney disease GERD (gastroesophageal reflux disease) H/O: gout Hypercholesterolemia Hypertension Hyponatremia Nicotine addiction Chief Complaint 6 month follow up RENAL 6 month f/u Reason for Visit Anemia Carotid stenosis, right Chronic bronchitis Chronic kidney disease GERD (gastroesophageal reflux disease) Hypercholesterolemia Hypertension Hyponatremia Nicotine addiction Anemia of renal disease Atrophic kidney CKD (chronic kidney disease) stage 4, GFR 15-29 ml/min Hyperlipidemia [id number] Hyponatremia Secondary hyperparathyroidism Reason for Referral Reason Mr. Guevara is bein g referred for cystoscopy Diagnosis 1 Bladder wall thicken ing (N32.89) Referral Organization [facility] Referring Provider First Name Jeremy Referring Provider Last Name Genaro Referring Provider Specialty Internal Dc dicine Referred Organization [facility] Referred Address [address], [place],[address] Referred Provider Specialty Urology Referral Priority Routine General Notes Mr. Guevara has katia dder wall thickening per CT imaging. He has lost 20lbs in that past year and continues to smoke. His CT scan did not reveal any obvious findings to explain his weight loss. However, bladder wall thickening was noted and he will be referred to for cystoscopy. Clinical Notes Include labs complet ed for his wellness exam. Include CT scan of abdomen/pelvis Additional Source Comments (unrecognized sect ion and content) No Status Records FoundNo Status Records FoundNo Status Records Found INFORMATION SOURCE (unrecogn ized section and content) DATE CREATED AUTHOR 12/15/2021 [facility] DATE CREATED AUTHOR AUTHOR'S ORGANIZ ATION 08/16/2023 [facility] DATE CREATED AUTHOR AUTHOR'S ORGANIZ ATION 03/22/2024 [facility] REASON FOR VISIT (unrecogniz ed section and content) CKDCKDNo InformationCKD and hyponatremiaCKD and HTNCKD and HTNNo InformationNo InformationREFILLcheckupNo InformationrefillNo InformationLabsWellness/ BP CheckMAIL PPWCKD and HTNCT resultsNo InformationNo Information Care Teams (unrecognized sec tion and content) Team Status: Active Member Role Status Dates Jeremy Lam , DO Primary Care Provider Active Team Status: Active Member Role Status Dates Jeremy Lam , DO Primary Care Provider Active Start: October 13, 2023 BRITTANY Hastings Attending Provider Active Start : October 13, 2023 Team Status: Active Member Role Status Dates Jeremy Lam , DO Primary Care Provider Active Start: January 05, 2024 Young Berrios MD Attending Provider Active Start : January 05, 2024 Team Status: Inactive Member Role Status Dates Jeremy Lam , DO Primary Care Provide r, Attending Provider Active Start: January 08, 2024 End: January 08, 2024 Team Status: Inactive Member Role Status Dates Jeremy Lam , DO Primary Care Provider Active Sixto Dobson MD Attending Provider Active Team Status: Inactive Member Role Status Dates Jeremy Lam , Primary Care Provider Active Start: January 15, 2024 End: January 15, 2024 Young Berrios MD Attending Provider Active Start : January 15, 2024 End: January 15, 2024 Goals (unrecognized section and content) Goals may be documented in a n alternate section FOR RECORDS PERTAINING TO PATIENTS WHO ARE [...] BE BASED ON THE PRIMARY CLINICAL RECORDS. [facility] [employer] provides no warranty or guarantee of the accuracy or completeness of information in this document.
== END 2024-05-17 13:47 | disposition home or self-care (01) ==
LOC: LAB 05-18 13:46
PROVIDERS: PCP Internal Medicine; Visit Provider Internal Medicine
DX: E78.5 Hyperlipidemia, unspecified (principal); N25.81 Secondary hyperparathyroidism of renal origin; N18.9 Chronic kidney disease, unspecified; D63.1 Anemia in chronic kidney disease; I12.9 Hypertensive chronic kidney disease with stage 1 through stage 4 chronic kidney disease, or unspecified chronic kidney disease
CPT/HCPCS: 36415; 80069; 81001; 82306; 82570; 82728; 83540; 83550; 83735; 83970; 84156; 84550; 85027

== ENCOUNTER 2024-07-07 07:30 | Outpatient (OUT) | payer MEDICARE, SELFPAY ==
--- OUTSIDE RECORDS SUMMARY | 2024-07-07 07:33 | XMS_ITS | CCD ---
Author Organization [facility] Care Team Providers Care Director Of Recreation Therapy Name Role Phone DR JEREMY LAM Consulting Unavailable GENARO, DR NAGEL Attending Unavailable GENARO, DR NAGEL Admitting Unavailable GENARO, DR NAGEL Primary Care Unavailable ELMWOOD PARK, DR ADELINA Crews Consulting Unavailable Young Berrios Unavailable Jeremy Lam Unavailable Sixto Dobson Unavailable DO Jeremy Lam Primary Care Provider MD Sixto Dobson Attending Provider [phone] Sixto Dobson Attending Unavailable Sixto Dobson Admitting Unavailable Jeremy Lam Primary Care Unavailable JEREMY LAM Primary Care Physician Ada Soares Attending Unavailable Ada Soares Attending Unavailable Ada Soares Attending Unavailable JEREMY LAM Referring Unavailable Allergies Allergy Classification Reported Allergen(s) Allergy Type Date of Onset Reaction(s) Facility (2 sources) patient allergy list reviewed by nurse or physicia Propensity to adverse reactions Comment:[employer] Other (1 source) No Known Medication Allergies; Translations: [No Known Medication Allergies] Propensity to adverse reactions (disorder) [facility] Repository Medications Current Medications Medication Drug Class(es) Dates Sig (Normalized) Sig (Original) amLODIPine 5 mg oral tablet (20 sources) Dihydropyridine Calcium Channel Inna Start: 02-02-2019 End: 05-07-2024 take 5 mg by mouth once daily Amlodipine Active 5 MG PO Daily 90 90 May 07, 2024 1:56pm take 1 tablet by kamala th every [...] PO Daily February 02, 2019 12:00am atorvastatin (20 sources) HMG-CoA Reductase Inhibitor Start: 03-01-2024 take 1 tablet by mouth once daily Atorvastatin Active 0 .ROUTE .COMPLEX March 01, 2024 11:05am TAKE 1 TABLET BY MOUTH DAILY Start: 02-02-2019 End: 03-01-2024 take 20 mg by mouth once daily Atorvastatin Discontinu ed 20 MG PO Daily 90 March 01, 2024 9:52am March 01, 2024 11:05am benazepril hydrochloride 40 mg oral tablet (20 sources) Angiotensin Converting [...] Start: 01-09-2023 take 1 capsule by mo txh every week Ergocalciferol 1.25 MG (63568 UT) 1 capsule Orally Q week for 90 days Dec, Active famotidine 40 mg oral tablet (3 sources) Histamine-2 Receptor Antagonist Start: 09-23-2023 take 1 tablet by mouth once daily Famotidine (Pepcid) 40 mg tablet Active 40 MG PO Daily September 23, 2023 1:00am Take 1 tablet orally once a day labetalol hydrochloride 100 mg oral tablet (20 sources) beta-Adrenergic Inna Start: 08-05-2023 End: 04-16-2024 take 100 mg by mouth twice daily Labetalol Active 100 MG PO Twice daily April 16, 2024 4:45pm omeprazole 40 mg delayed release oral capsule (8 sources) Proton Pump Inhibitor Start: 08-27-2023 omeprazole 40 mg Cap-DR Refills(s) 0 Start Date: 08/27/23 Status: Ordered Start: 07-09-2023 take 1 capsule by mo [facility] once daily Omeprazole 40 MG 1 capsule 30 minutes before morning meal Orally Once a day for 30 days Jun, Active tamsulosin hydrochloride 0.4 mg oral capsule (5 sources) alpha-Adrenergic Inna Start: 09-12-2023 take 0.4 [...] Chronic Chronic obstructive pulmonary disease and bronchiectasis (5 sources) Chronic bronchitis; Translations: [Unspecified chronic bronchitis] 01-06-2024 Chronic Deficiency and other anemia (7 sources) Anemia of renal disease; Translations: [Anemia in chronic kidney disease] Chronic Deficiency and other anemia (1 source) Anemia in chronic kidney disease Chronic Deficiency and other anemia (3 sources) Anemia, unspecified; Translations: [Anemia, unspecified] Episodic Deficiency and other anemia (3 sources) Anemia; Translations: [Anemia, unspecified] 01-08-2024 Episodic Disorders of lipid metabolism (20 sources) Hypercholesterolemia; Translations: [Pure hypercholesterolemia, unspecified] Chronic Esophageal disorders (5 sources) Gastroesophageal reflux disease; Translations: [Gastro-esophageal reflux [...] 2 Resolved: 2 Chronic Hyperplasia of prostate (12 sources) Lower urinary tract symptoms due to benign prostatic hypertrophy; Translations: [Benign prostatic hyperplasia with lower urinary tract symptoms] Onset: 7 Chronic Hypertension with complications and secondary hypertension (20 sources) Chronic kidney disease due to hypertension; Translations: [Hypertensive chronic kidney disease with stage 1 through stage 4 chronic kidney disease, or unspecified chronic kidney disease] Onset: 2 Resolved: 2 Chronic Nausea and vomiting (4 sources) Nausea with vomiting, unspecified; Translations: [Nausea and vomiting] Onset: 4 09-23-2023 Episodic Nephritis; nephrosis; renal sclerosis (20 sources) Nephrosclerosis; Translations: [Atrophy of kidney (terminal)] Onset: 2 Resolved: 2 Chronic Occlusion or stenosis of precerebral arteries (9 sources) Right carotid artery stenosis; Translations: [Occlusion and stenosis of right carotid artery] 08-22-2023 Chronic Other aftercare (1 source) Long-term current use of aspirin; Translations: [FCI (current) use of aspirin] Onset: 4 Episodic [...] Chronic Other diseases of kidney and ureters (8 sources) Secondary hyperparathyroidism of renal origin; Translations: [Secondary hyperparathyroidism (of renal origin)] Onset: 2 Resolved: 2 Chronic Other gastrointestinal disorders (4 sources) Occult blood in stools; Translations: [Other [...] source) Early satiety Episodic Residual codes; unclassified (3 sources) Early satiety; Translations: [Early satiety] 09-23-2023 [...] Erythrocyte distribution wid th Auto (RBC) [Ratio]on 05-17-2024 Erythrocyte distribution width (RBC) [Ratio] 12.5 % 11.0-15.0 [facility] Estimated glomerular filtrat ion rate (GFR) non- Americanon 05-17-2024 GFR/1.73 sq M.predicted among non-blacks MDRD (S/P/Bld) [Vol rate/Area] 27 mL/min/{1.73_m2} Low >=60 mL/min/1.73m 2 [facility] Hematocrit Auto (Bld) [Volum e fraction]on 05-17-2024 Hematocrit (Bld) [Volume fraction] 36.5 % Low 42.0-54.0 [facility] Hemoglobin [Mass/volume] in Bloodon 05-17-2024 Hemoglobin (Bld) [Mass/Vol] 13.0 g/dL Low 14.0-18.0 [facility] Iron binding capacity [Mass/ volume] in Serum or Plasmaon 05-17-2024 Iron binding capacity [Mass/Vol] 177.0 ug/dL Low 250.0-450.0 [facility] Iron saturation [Mass Fracti on] in Serum or Plasmaon 05-17-2024 Iron saturation [Mass fraction] 35.0 % [facility] Laboratory - Chemistry and C hemistry - challengeon 05-17-2024 Albumin [Mass/Vol] 3.2 g/dL Low 3.4-5.0 [facility] Calcium [Mass/Vol] 8.4 mg/dL Low 8.5-10.1 [facility] Chloride [Moles/Vol] 93 mmol/L Low 98-107 [facility] CO2 [Moles/Vol] 24.1 mmol/L 21.0-32.0 [facility] Creatinine [Mass/Vol] 2.43 mg/dL High 0.70-1.30 [facility] Ferritin [Mass/Vol] 297.0 ng/mL 26.0-388.0 [facility] GFR/1.73 sq M.predicted MDRD (S/P/Bld) [Vol rate/Area] 33 mL/min/{1.73_m2} Low >=60 mL/min/1.73m 2 [facility] Glucose [Mass/Vol] 95 mg/dL 74-106 [facility] Iron [Mass/Vol] 62.0 ug/dL Low 65.0-175.0 [facility] Magnesium [Mass/Vol] 2.0 mg/dL 1.8-2.4 [facility] Potassium [Moles/Vol] 4.7 mmol/L 3.5-5.1 [facility] Sodium [Moles/Vol] 128 mmol/L Low 136-145 [facility] Urate [Mass/Vol] 5.6 mg/dL 3.5-7.2 [facility] Urea nitrogen [Mass/Vol] 17.0 mg/dL 7.0-18.0 [facility] Urea nitrogen/Creatinine [Mass ratio] 7.0 mg/mg [facility] Bilirubin Ql (U) Negative NEGATIVE [facility] Glucose (U) [Mass/Vol] Negative NEGATIVE [facility] Ketones Ql (U) Negative NEGATIVE [facility] pH (U) 6.0 [pH] 5.0-9.0 [facility] Specific gravity (U) [Rel density] <=1.005 Abnormal 1.005-1.025 [facility] Urobilinogen Qn (U) 0.2 {Edgar'U}/dL 0.2-1.0 [facility] Laboratory - Specimen inform ationon 05-17-2024 Appearance (U) CLEAR CLEAR [facility] Color (U) LT. YELLOW YELLOW [facility] Laboratory - Urinalysison Leukocyte esterase Test strip Ql (U) Negative NEGATIVE [facility] Mucus Ql (Urine sed) NONE SEEN NONE SEEN [facility] Nitrite Ql (U) Negative NEGATIVE [facility] Protein (U) [Mass/Vol] 14.8 mg/dL High <=11.9 [facility] Protein Ql (U) Negative NEG/TRACE [facility] Leukocytes [#/volume] correc mitchell for nucleated erythrocytes in Blood by Automated counon 05-17-2024 WBC corrected for nucl RBC Auto (Bld) [#/Vol] 8.6 10 3/uL 4.0-11.0 [facility] MCH Auto (RBC) [Entitic mass ]on 05-17-2024 MCH (RBC) [Entitic mass] 33.2 pg 25.9-34.0 [facility] MCHC Auto (RBC) [Mass/Vol]on 05-17-2024 MCHC (RBC) [Mass/Vol] 35.6 g/dL High 29.9-35.2 [facility] MCV Auto (RBC) [Entitic vol] on 05-17-2024 MCV (RBC) [Entitic vol] 93.1 fL 80.0-94.0 [facility] No Panel Informationon 05-17 25-Hydroxy Vitamin D Total 81.1 ng/mL [facility] Comment on above: <20 ng/mL Vit D defi cient20-<30 ng/mL Vit D -172 ng/mL Vit D sufficient>100 ng/mL Potential Toxicity Parathyroid Hormone (Intact) 51 pg/mL 15-65 [facility] Comment on above: Performed at: [address] [id number] Director: Yakov Sheikh PhD, Phone: [phone] Phosphorus Level 3.4 mg/dL 2.6-4.7 [facility] Urine Bacteria TRACE #/HPF Abnormal NONE SEEN [facility] Urine Culture Reflexed NO [facility] Urine Occult Blood Negative NEGATIVE [facility] Urine Other Casts NONE SEEN #/LPF NONE SEEN [facility] Urine Other Crystals None Seen #/HPF None Seen [facility] Urine Random Creatinine 40.25 mg/dL 20.00-300.00 [facility] Urine RBC NONE SEEN #/HPF 0-2 [facility] Urine Squamous Epithelial Cells RARE #/LPF NONE/RARE [facility] Urine WBC NONE SEEN #/HPF NONE SEEN [facility] Platelet mean volume Auto (B ld) [Entitic vol]on 05-17-2024 Platelet mean volume (Bld) [Entitic vol] 9.1 fL Low 9.5-13.5 [facility] Platelets Auto (Bld) [#/Vol] on 05-17-2024 Platelets (Bld) [#/Vol] 283 10 3/uL 150-450 [facility] RBC Auto (Bld) [#/Vol]on RBC (Bld) [#/Vol] 3.92 10 6/uL Low 4.70-6.10 [facility] Serum or plasma anion gap de terminationon 05-17-2024 Anion gap [Moles/Vol] 15.6 mmol/L [facility] Urine protein/creatinine rat ioon 05-17-2024 Protein/Creatinine (U) [Ratio] 0.37 [facility] Erythrocyte distribution wid th Auto (RBC) [Ratio]on 01-05-2024 Erythrocyte distribution width (RBC) [Ratio] 12.3 % 11.0-15.0 [facility] Estimated glomerular filtrat ion rate (GFR) non- Americanon 01-05-2024 GFR/1.73 sq M.predicted among non-blacks MDRD (S/P/Bld) [Vol rate/Area] 26 mL/min/{1.73_m2} >=60 [facility] Hematocrit Auto (Bld) [Volum e fraction]on 01-05-2024 Hematocrit (Bld) [Volume fraction] 34.2 % 42.0-54.0 [facility] Hemoglobin [Mass/volume] in Bloodon 01-05-2024 Hemoglobin (Bld) [Mass/Vol] 12.3 g/dL 14.0-18.0 [facility] Laboratory - Chemistry and C hemistry - challengeon 01-05-2024 Albumin [Mass/Vol] 3.9 g/dL 3.4-5.0 [facility] Calcium [Mass/Vol] 8.9 mg/dL 8.5-10.1 [facility] Chloride [Moles/Vol] 91 mmol/L 98-107 [facility] CO2 [Moles/Vol] 24.4 mmol/L 21.0-32.0 [facility] Creatinine [Mass/Vol] 2.46 mg/dL 0.70-1.30 [facility] Ferritin [Mass/Vol] 275.0 ng/mL 26.0-388.0 [facility] GFR/1.73 sq M.predicted MDRD (S/P/Bld) [Vol rate/Area] 32 mL/min/{1.73_m2} >=60 [facility] Glucose [Mass/Vol] 67 mg/dL 74-106 [facility] Magnesium [Mass/Vol] 2.0 mg/dL 1.8-2.4 [facility] Potassium [Moles/Vol] 4.9 mmol/L 3.5-5.1 [facility] Sodium [Moles/Vol] 124 mmol/L 136-145 [facility] Comment on above: RESULTS CALLED TO ANABELL VILLANUEVA CALLED TO []@BY Gil Stevenson MLT at 1636 Urate [Mass/Vol] 6.8 mg/dL 3.5-7.2 [facility] Urea nitrogen [Mass/Vol] 21.0 mg/dL 7.0-18.0 [facility] Urea nitrogen/Creatinine [Mass ratio] 8.5 mg/mg [facility] Bilirubin Ql (U) Negative NEGATIVE [facility] Glucose (U) [Mass/Vol] Negative NEGATIVE [facility] Ketones Ql (U) Negative NEGATIVE [facility] pH (U) 6.0 [pH] 5.0-9.0 [facility] Specific gravity (U) [Rel density] <=1.005 1.005-1.025 [facility] Urobilinogen Qn (U) 1.0 {Edgar'U}/dL 0.2-1.0 [facility] Laboratory - Specimen inform ationon 01-05-2024 Appearance (U) CLEAR CLEAR [facility] Color (U) LT. YELLOW YELLOW [facility] Laboratory - Urinalysison Leukocyte esterase Test strip Ql (U) Negative NEGATIVE [facility] Mucus Ql (Urine sed) NONE SEEN NONE SEEN [facility] Nitrite Ql (U) Negative NEGATIVE [facility] Protein (U) [Mass/Vol] 13.4 mg/dL <=11.9 [facility] Protein Ql (U) Negative NEG/TRACE [facility] Leukocytes [#/volume] correc mitchell for nucleated erythrocytes in Blood by Automated counon 01-05-2024 WBC corrected for nucl RBC Auto (Bld) [#/Vol] 7.8 10 3/uL 4.0-11.0 [facility] MCH Auto (RBC) [Entitic mass ]on 01-05-2024 MCH (RBC) [Entitic mass] 33.1 pg 25.9-34.0 [facility] MCHC Auto (RBC) [Mass/Vol]on 01-05-2024 MCHC (RBC) [Mass/Vol] 36.0 g/dL 29.9-35.2 [facility] MCV Auto (RBC) [Entitic vol] on 01-05-2024 MCV (RBC) [Entitic vol] 91.9 fL 80.0-94.0 [facility] No Panel Informationon 01-04 25-Hydroxy Vitamin D Total 77.4 ng/mL [facility] Comment on above: <20 ng/mL Vit D defi cient20-<30 ng/mL Vit D fyfmdyrtgcku17-228 ng/mL Vit D sufficient>100 ng/mL Potential Toxicity Parathyroid Hormone (Intact) 43 pg/mL 15-65 [facility] Comment on above: Performed at: [address] [id number] Director: Yakov Sheikh PhD, Phone: [phone] Phosphorus Level 3.3 mg/dL 2.6-4.7 [facility] Urine Bacteria NONE SEEN #/HPF NONE SEEN [facility] Urine Occult Blood Negative NEGATIVE [facility] Urine Other Casts NONE SEEN #/LPF NONE SEEN [facility] Urine Other Crystals None Seen #/HPF None Seen [facility] Urine Random Creatinine 52.39 mg/dL 20.00-300.00 [facility] Urine RBC 0-2 #/HPF 0-2 [facility] Urine Squamous Epithelial Cells NONE SEEN #/LPF NONE/RARE [facility] Urine WBC 0-2 #/HPF NONE SEEN [facility] Platelet mean volume Auto (B ld) [Entitic vol]on 01-05-2024 Platelet mean volume (Bld) [Entitic vol] 9.3 fL 9.5-13.5 [facility] Platelets Auto (Bld) [#/Vol] on 01-05-2024 Platelets (Bld) [#/Vol] 211 10 3/uL 150-450 [facility] RBC Auto (Bld) [#/Vol]on RBC (Bld) [#/Vol] 3.72 10 6/uL 4.70-6.10 [facility] Serum or plasma anion gap de terminationon 01-05-2024 Anion gap [Moles/Vol] 13.5 mmol/L [facility] Urine protein/creatinine rat ioon 01-05-2024 Protein/Creatinine (U) [Ratio] 0.26 [facility] Consent for Procedure/Surger yon 09-15-2023 Consent for Procedure/Surgery [id number] 0TIFF Normal [facility] Ambulatory Visit Summaryon 0 09-12-2023 Ambulatory Visit Summary SABRINA COLES :1955 Visit Date:09/12/2023 Ambulatory Visit Instructions Your [...] 100 mg Tab) omeprazole (omeprazole 40 mg Cap-) Procedures Performed Cystoscope (09/12/2023), Appendectomy, Colonoscopy, Tonsillectomy. Discharge Vitals Height 183 cm Height 72 in Weight 70.5 kg Weight 155.1 lb BMI 21.05 What to do next Scheduled Follow-Up Appointments Friday 10:00 AM EDT With: Rodger BRIDGES, Ada Morris Where: [facility] Urology Office/Clinic Noteon 09-12-2023 Urology Office/Clinic [...] disorders of bladder) CT AP wo Con @[facility] 08/04/23 - right urinary bladder wall thickening [...] wo Con @[facility] 08/04/23 - 6.5mm LLP stone. -Dietary modifications including increased fluids -Discuss surveillance imaging at follow up 4. 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 7. Aspirin long-term use (Z79.82: FCI (current) use of aspirin) Aspirin 81mg. [1] Follow-up With When Contact Information Rodger BRIDGES, Ada Morris, URL, [facility] [address], [place] [phone] Additional Instructions: 6 mos (new med) Patient Education Cystoscopy I, Humera Jones, personally scribed for Dr. Soares on 09/12/2023 08:09:10. . Documentation recorded by the scribe, Humera Jones, accurately reflects the services(s) I performed and decisions made by me. Authenticated by Dr. Soares (more content not included)... Normal [facility] Comment on above: Result Comment: Elec tronically Signed By: Ada Soares MD\.br\Date and Time Signed: 09/12/23 08:18 EST\.br\Electronically Co-Signed By: Humera Jones\.br\Date and Time Co-Signed: 09/12/23 08:09 EST Physician Referralon 024 Physician Referral [id number]#1.0 0TIFF Normal [facility] Screenson 09-02-2023 Screens [id number]. 00TIFF Normal [facility] Screens [id number]. 00TIFF Normal [facility] Ambulatory Visit Summaryon 0 08-27-2023 Ambulatory Visit [...] Following Appointments Follow Up with Rodger BRIDGES, Ada Morris, URL, [facility] When: Comments: Schedule cysto Where: Medications [...] including vitamins, herbs, eye drops, creams, and diqg-dcq-zbonhpp medicines. ? Any problems you or family [...] tells you to take them. ? Taking epor-ddu-djbabsz medicines, vitamins, herbs, and supplements. Tests You may have an exam or testing, such as: ? X-rays of the bladder, urethra, or kidneys. ? CT scan of the abdome (more content not included)... Normal [facility] Patient Educationon 08-27-19 Patient Education Nephrology [...] ? 8 oz (237 mL) of milk, kseutfi-sqvrewwxiuby-s airy milk, and calcium-fortifiedfruit juice. Calcium-fortified means [...] Spinach (cooked), rhubarb, beets, sweet potatoes, and Surinamese chard. ? Peanuts. ? Potato chips, maori fries, and baked potatoes with skin on. ? Nuts and nut products. ? Chocolate. ? If you regularly take a diuretic medicine, make sure to eat at least 1 or 2 servings of fruits or vegetables that are high in potassium each day. These include: ? Avocado. ? Banana. ? [place], prune, carrot, or tomato juice. ? Baked [...] fish oil, or vitamin B6. ? Take dtip-jkb-ioedfwm and prescription medicines only as told by your health care provider. These include supplements. What foods sh (more content not included)... Normal [facility] Amphetamine Screen Ql (U)Ord ered By: Sixto Dobson on 08-05-2023 Amphetamines Ql (U) Negative Negative [facility] Barbiturates [Presence] in U rine by Screen methodOrdered By: Sixto Dobson on 08-05-2023 Barbiturates Screen Ql (U) Negative Negative [facility] Benzodiazepines Screen Ql (U )Ordered By: Sixto Dobson on 08-05-2023 Benzodiazepines Ql (U) Negative Negative [facility] Benzoylecgonine [Presence] i n Urine by Screen methodOrdered By: Sixto Dobson on 08-05-2023 Benzoylecgonine Screen Ql (U) Negative Negative [facility] Cannabinoids [Presence] in U rine by Screen methodOrdered By: Sixto Dobson on 08-05-2023 Cannabinoids Screen Ql (U) Positive Negative [facility] Comment on above: These are unconfirme d results and should not be used for legal purposes. Drug Cut-Off Concentration: AMPH 1000 ng/mL NORMA 200 ng/mL LUIS 200 ng/mL COCM 300 ng/mL OP 300 ng/mL PCP 25 ng/mL THC 20 ng/mL Drug Screen,Urineon 08-05-19 24 Amphetamine Screen,Urine Negative Normal Negative [facility] Comment on above: Performed By: #### U RDS #### [address] Barbiturate Screen,Urine Negative Normal Negative [facility] Comment on above: Performed By: #### U RDS #### [place] [address] [place] Benzodiazepines Screen,Urine Negative Normal Negative [facility] Comment on above: Performed By: #### U RDS #### [address] Cannabinoid Screen,Urine Positive High Negative [facility] Comment on above: Result Comment: Thes e are unconfirmed results and should not be used for legal purposes. Drug Cut-Off Concentration: AMPH 1000 ng/mL NORMA 200 ng/mL LUIS 200 ng/mL COCM 300 ng/mL OP 300 ng/mL PCP 25 ng/mL THC 20 ng/mL PERFORMED BY: [place] [address] DARLENE BARBA M.D. Performed By: #### U RDS #### [address] Cocaine Screen,Urine Negative Normal Negative [facility] Comment on above: Performed By: #### U RDS #### [place] [address] [place] Opiate Screen,Urine Negative Normal Negative [facility] Comment on above: Performed By: #### U RDS #### [place] [address] [place] Phencyclidine Screen,Urine Negative Normal Negative [facility] Comment on above: Performed By: #### U RDS #### [address] Opiates [Presence] in Urine by Screen methodOrdered By: Sixto Dobson on 08-05-2023 Opiates Screen Ql (U) Negative Negative [facility] Phencyclidine Screen Ql (U)O rdered By: Sixto Dobson on 08-05-2023 Phencyclidine Ql (U) Negative Negative [facility] CT LUNG CANCER SCREENINGon 0 12-08-2021 CT [...] by: ADELINA BISHOP Date: 2021-12-08 11:21 Normal [facility] Vital Signs Date Time Vital Sign Value Performing Clinician Facility 05-20-2024 11:09040 Body height 182.88 cm [facility] 05-20-2024 11:090400 Body mass index (BMI) [Ratio] 21.2 kg/m2 [facility] 05-20-2024 11:09-0400 Body temperature 98.1 [degF] [facility] 05-20-2024 11:09040 Body weight 70.98 kg [facility] 05-20-2024 11:09-0400 Diastolic blood pressure 66 mm[Hg] [facility] 05-20-2024 11:09-0400 Heart rate 76 /min [facility] 05-20-2024 11:09-0400 Respiratory rate 18 /min [facility] 05-20-2024 11:09-0400 SaO2% (BldA) [Mass fraction] 99 % [facility] 05-20-2024 11:09-0400 Systolic blood pressure 116 mm[Hg] [facility] 01-15-2024 13:04-0400 Body height 182.88 cm [facility] 01-15-2024 13:04-0400 Body mass index (BMI) [Ratio] 21.5 kg/m2 [facility] 01-15-2024 13:04-0400 Body temperature 98.3 [degF] [facility] 01-15-2024 13:04-0400 Body weight 72.12 kg [facility] 01-15-2024 13:04-0400 Diastolic blood pressure 60 mm[Hg] [facility] 01-15-2024 13:04-0400 Heart rate 78 /min [facility] 01-15-2024 13:04-0400 Respiratory rate 16 /min [facility] 01-15-2024 13:04-0400 SaO2% (BldA) [Mass fraction] 96 % [facility] 01-15-2024 13:04-0400 Systolic blood pressure 132 mm[Hg] [facility] 01-08-2024 10:12-0400 Body height 182.88 cm [facility] 01-08-2024 10:12-0400 Body mass index (BMI) [Ratio] 21.2 kg/m2 [facility] 01-08-2024 10:12-0400 Body weight 70.87 kg [facility] 01-08-2024 10:12-0400 Diastolic blood pressure 69 mm[Hg] [facility] 01-08-2024 10:12-0400 Heart rate 66 /min [facility] 01-08-2024 10:12-0400 Respiratory rate 12 /min [facility] 01-08-2024 10:12-0400 Systolic blood pressure 127 mm[Hg] [facility] 08-05-2023 15:44-0500 Diastolic blood pressure 82 mm[Hg] DO Jeremy Ball Work Phone: [facility] 08-05-2023 15:44-0500 Heart rate 78 /min DO Jeremy Ball Work Phone: [facility] 08-05-2023 15:44-0500 Respiratory rate 16 /min DO Jeremy Ball Work Phone: [facility] [facility] 15:44-0500 SaO2% (BldA) [Mass fraction] 97 % DO Jeremy Ball Work Phone: [facility] 08-05-2023 15:44-0500 Systolic blood pressure 157 mm[Hg] DO Jeremy Ball Work Phone: [facility] 08-05-2023 13:26-0500 Body height 182.88 cm DO Jeremy Ball Work Phone: [facility] 08-05-2023 13:26-0500 Body weight 68.03 kg DO Jeremy Ball Work Phone: [facility] 07-24-2023 12:40-0500 Body height 182.88 cm Young Yash Other [employer] Other 07-24-2023 12:40-0500 Body mass index (BMI) [Ratio] 21.83 kg/m2 Young Yash Other [employer] Other 07-24-2023 12:40-0500 Body temperature 98.6 [degF] Young Yash Other [employer] Other 07-24-2023 12:40-0500 Body weight 73.03 kg Young Yash Other [employer] Other 07-24-2023 12:40-0500 Diastolic blood pressure 62 mm[Hg] Young Yash Other [employer] Other 07-24-2023 12:40-0500 Respiratory rate 16 /min Young Yash Other [employer] Other 07-24-2023 12:40-0500 SaO2% (BldA) [Mass fraction] 100 % Young Yash Other [employer] Other 07-24-2023 12:40-0500 Systolic blood pressure 130 mm[Hg] Young Yash Other [employer] Other 07-09-2023 10:30-0500 Body height 182.88 cm Jeremy Ball Other [employer] Other 07-09-2023 10:30-0500 Body mass index (BMI) [Ratio] 21.13 kg/m2 Jeremy Ball Other [employer] Other 07-09-2023 10:30-0500 Body weight 70.67 kg Jeremy Ball Other [employer] Other 07-09-2023 10:30-0500 Diastolic blood pressure 69 mm[Hg] Jeremy Ball Other [employer] Other 07-09-2023 10:30-0500 Respiratory rate 12 /min Jeremy Ball Other [employer] Other 07-09-2023 10:30-0500 Systolic blood pressure 131 mm[Hg] Jeremy Ball Other [employer] Other 01-29-2023 13:30-0400 Body height 182.88 cm Jeremy Ball Other [employer] Other 01-29-2023 13:30-0400 Body mass index (BMI) [Ratio] 22.32 kg/m2 Jeremy Ball Other [employer] Other 01-29-2023 13:30-0400 Body weight 74.66 kg Jeremy Ball Other [employer] Other 01-29-2023 13:30-0400 Diastolic blood pressure 66 mm[Hg] Jeremy Ball Other [employer] Other 01-29-2023 13:30-0400 Respiratory rate 12 /min Jeremy Ball Other [employer] Other 01-29-2023 13:30-0400 Systolic blood pressure 119 mm[Hg] Jeremy Ball Other [employer] Other 01-07-2023 11:20-0400 Body height 182.88 cm Young Yash Other [employer] Other 01-07-2023 11:20-0400 Body mass index (BMI) [Ratio] 22.62 kg/m2 Young Yash Other [employer] Other 01-07-2023 11:20-0400 Body temperature 97.7 [degF] Young Yash Other [employer] Other 01-07-2023 11:20-0400 Body weight 75.66 kg Young Yash Other [employer] Other 01-07-2023 11:20-0400 Diastolic blood pressure 64 mm[Hg] Young Yash Other [employer] Other 01-07-2023 11:20-0400 Respiratory rate 18 /min Young Yash Other [employer] Other 01-07-2023 11:20-0400 SaO2% (BldA) [Mass fraction] 99 % Young Yash Other [employer] Other 01-07-2023 11:20-0400 Systolic blood pressure 127 mm[Hg] Young Yash Other [employer] Other 02-21-2022 11:20-0400 Body height 182.88 cm Young Yash Other [employer] Other 02-21-2022 11:20-0400 Body mass index (BMI) [Ratio] 23.95 kg/m2 Young Yash Other [employer] Other 02-21-2022 11:20-0400 Body temperature 96.8 [degF] Young Yash Other [employer] Other 02-21-2022 11:20-0400 Body weight 80.11 kg Young Yash Other [employer] Other 02-21-2022 11:20-0400 Diastolic blood pressure 62 mm[Hg] Young Yash Other [employer] Other 02-21-2022 11:20-0400 Respiratory rate 18 /min Young Yash Other [employer] Other 02-21-2022 11:20-0400 SaO2% (BldA) [Mass fraction] 98 % Young Yash Other [employer] Other 02-21-2022 11:20-0400 Systolic blood pressure 119 mm[Hg] Young Yash Other [employer] Other 11-08-2021 11:00-0400 Body height 182.88 cm Young Yash Other [employer] Other 11-08-2021 11:00-0400 Body mass index (BMI) [Ratio] 24.79 kg/m2 Young Yash Other [employer] Other 11-08-2021 11:00-0400 Body temperature 97.6 [degF] Young Yash Other [employer] Other 11-08-2021 11:00-0400 Body weight 82.92 kg Young Yash Other [employer] Other 11-08-2021 11:00-0400 Diastolic blood pressure 74 mm[Hg] Young Yash Other [employer] Other 11-08-2021 11:00-0400 Respiratory rate 18 /min Young Yash Other [employer] Other 11-08-2021 11:00-0400 SaO2% (BldA) [Mass fraction] 98 % Young Yash Other [employer] Other 11-08-2021 11:00-0400 Systolic blood pressure 139 mm[Hg] Young Yash Other [employer] Other Encounters Encounter Date Encounter Type Care Provider Facility Start: 05-20-2024 End: 05-20-2024 [facility] Work Phone: Start: 05-20-2024 End: 05-20-2024 Patient encounter procedure [facility] Work Phone: Start: 05-17-2024 Non-patient / Non-visit [facility] Work Phone: Start: 03-19-2024 End: 03-19-2024 ambulatory Ada M. Lue Facility:[facility] Start: 03-19-2024 End: 03-19-2024 Patient encounter procedure Ada M. Kourtneye [facility] Start: 01-15-2024 End: 01-15-2024 ambulatory [facility] Work Phone: Start: 01-15-2024 End: 01-15-2024 Patient encounter procedure [facility] Work Phone: Start: 01-08-2024 End: 01-08-2024 ambulatory [facility] Work Phone: Start: 01-08-2024 End: 01-08-2024 Patient encounter procedure [facility] Work Phone: Start: 01-05-2024 Non-patient / Non-visit [facility] Work Phone: Start: 10-13-2023 Non-patient / Non-visit [facility] Work Phone: Start: 09-12-2023 End: 09-12-2023 ambulatory Ada M. Lue Facility:[facility] Start: 09-12-2023 End: 09-12-2023 Patient encounter procedure Ada M. Kourtneye [facility] Start: 08-27-2023 End: 08-27-2023 ambulatory Ada M. Lue Facility:[facility] Start: 08-18-2023 End: 08-18-2023 ambulatory Young Yash Other [employer] Other Start: 08-18-2023 Telephone encounter Young Yash [facility] Start: 08-14-2023 ambulatory Ada Lue Facility:[facility] Start: 08-11-2023 ambulatory Ada Lue Facility:[facility] Start: 08-05-2023 End: 08-05-2023 ambulatory Sixto Dobson Facility:[facility] Start: 08-05-2023 Telephone encounter Jeremy Pascal [facility] Start: 08-05-2023 End: 08-05-2023 Admission to same day surgery center DO Jeremy Lam Work Phone: [facility] Work Phone: Start: 08-05-2023 End: 08-05-2023 ambulatory DO Jeremy Genaro Work Phone: [facility] Work Phone: Start: 08-04-2023 End: 08-04-2023 ambulatory Young Yash Other [employer] Other Start: 08-04-2023 Telephone encounter Young Yash [facility] Start: 07-24-2023 End: 07-24-2023 ambulatory Young Yash Other [employer] Other Start: 07-24-2023 Office outpatient vi sit 25 minutes Young Yash [facility] Start: 07-17-2023 End: 07-17-2023 ambulatory Sixto Dobson Other [employer] Other Start: 07-17-2023 Telephone encounter Sixto Pascal [facility] Start: 07-09-2023 End: 07-09-2023 ambulatory Jeremy Lam Other [employer] Other Start: 07-09-2023 Patient encounter procedure Jeremy Lam [facility] Start: 07-07-2023 End: 07-07-2023 ambulatory Jeremy Lam Other [employer] Other Start: 07-07-2023 Telephone encounter Jeremy Lam [facility] Start: 04-08-2023 End: 04-08-2023 ambulatory Jeremy Lam Other [employer] Other Start: 04-08-2023 Telephone encounter Jeremy Lam [facility] Start: 02-06-2023 End: 02-06-2023 ambulatory Jeremy Lam Other [employer] Other Start: 02-06-2023 Telephone encounter Jeremy Lam [facility] Start: 01-29-2023 End: 01-29-2023 ambulatory Jeremy Lam Other [employer] Other Start: 01-29-2023 Office outpatient vi sit 15 minutes Jeremy Lam [facility] Start: 01-29-2023 Telephone encounter Jeremy SPENCE [facility] Start: 01-14-2023 End: 01-14-2023 ambulatory Jeremy Lam Other [employer] Other Start: 01-14-2023 Telephone encounter Jeremy Lam [facility] Start: 01-08-2023 End: 01-08-2023 ambulatory Young Yash Other [employer] Other Start: 01-08-2023 Telephone encounter Young Yash [facility] Start: 01-07-2023 End: 01-07-2023 ambulatory Young Yash Other [employer] Other Start: 01-07-2023 Office outpatient vi sit 25 minutes Young Yash [facility] Start: 01-07-2023 Telephone encounter Young Yash [facility] Start: 02-21-2022 End: 02-21-2022 ambulatory Young Yash Other [employer] Other Start: 02-21-2022 Office outpatient vi sit 25 minutes Young Yash [facility] Start: 02-21-2022 Telephone encounter Young Yash [facility] Start: 12-08-2021 End: 12-09-2021 ambulatory JEREMY GENARO Facility: Start: 11-29-2021 Adult health examination Jeremy Lam Other [employer] Other Start: 11-08-2021 End: 11-08-2021 ambulatory Young Yash Other [employer] Other Start: 11-08-2021 Office outpatient vi sit 25 minutes Young Yash [facility] Procedures Date Procedure Procedure Detail Performing Clinician Start: 09-12-2023 Cystoscope, device (physical object) Ada Soares Start: 08-05-2023 Esophagogastroduodenoscopy DO Jeremy Caro all Work Phone: Start: 06-13-2017 General examination of patient Jeremy Lam Other Start: 06-13-2017 Screening for malignant neoplasm of colon Jeremy Lam Other Appendectomy Ada Lue Colonoscopy Ada Lue Tonsillectomy Ada Lue Plan of Treatment Date Care Activity Detail Author Start: 08-05-2023 [facility] Renal function 1999 panel - Serum or Plasma [facility] Renal function 1999 panel - Serum or Plasma [facility] Immunizations Immunization Date Immunization Notes Care Provider Fa cilichristos 12-04-2020 COVID-19 Vaccine Mod poly - Documentation Purposes Only Jeremy Lam Other [facility] Comment on above: Result Comment: 2023: [id number] 11-06-2020 COVID-19 Vaccine Mod poly - Documentation Purposes Only Jeremy Lam Other [facility] Comment on above: Result Comment: 2023: [id number] 06-15-2020 zoster vaccine recombinant Jeremy Lam Other [facility] 04-12-2020 zoster vaccine recombinant Jeremy Lam Other [facility] Payers Date Payer Category Payer Private Health Insurance [id number] 2023 Medicare [id number] [id number] 2023 Self-pay [id number] 1957 Private Health Insurance [id number] 1955 Unknown [id number] 1955 Unknown [id number] [id number] [id number] 1955 Unknown [id number] 2.16.8 [id number] 1955 Unknown [id number] 2.16.8 [id number] 1955 Unknown [id number] 2.16.8 [id number] 1955 Unknown [id number] 2.16.8 [id number] Private Health Insurance [id number] Unknown [id number] [id number] Social History Date Type Detail Facility Unknown if ever smoked [employer] Other Sex Assigned At [facility] Start: 08-05-2023 End: 01-15-2024 Tobacco smoking status NHIS Smoker (finding) [facility] Start: 1955 Sex Assigned At Male [facility] Start: 08-27-2023 Tobacco smoking status Heavy t obacco smoker (finding) [facility] Tobacco smoking status Never [facility] Goals Date Patient Goal Desired Activity /State Functional Status Date Assessment Result Facility 09-12-2023 Functional Status N/A [facility] Clinical Notes 11-08-2021 to [...] including vitamins, herbs, eye drops, creams, and sxmc-wxx-gvdhgwn medicines. Any problems you or family members [...] provider tells you to take them. Taking mppt-iyk-phzhbuk medicines, vitamins, herbs, and supplements. Tests You [...] Follow these instructions at home: Medicines Take mewh-hwe-itgkonj and prescription medicines only as told by [...] provider. Document Revised: 03/27/2022 Document Reviewed: 02/23/2021 [employer] Patient Education 2022 [employer]. Follow Up Care 08/27/2023 10:15:46 With:Rodger BRIDGES, MCKAYLA Tipton, URO Address: [address] [place] [phone] When: Unknown Comments:6 mos (new med) [facility] 09-12-2023 Note Urology Cystoscopy [...] including vitamins, herbs, eye drops, creams, and qclh-rdt-rqznsag medicines. ? Any problems you or family [...] tells you to take them. ? Taking oqae-apx-habagaw medicines, vitamins, herbs, and supplements. Tests You [...] these instructions at home: Medicines ? Take qdlz-qhe-cydudcl and prescription medicines only as told by [...] the department th (more content not included)... 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 Berrios 4. Urinary hesitancy (R39.11: Hesitancy of micturition) Hesitancy with weak stream since before the Holidays. Uncomfortable at times, but not concerned. Denies frequency & nocturia. Denies leakin (more content not included)... [facility] Comment on above: Result Comment: Elec tronically Signed By: Rodger BRIDGES, Ada Morris\.br\Date and Time Signed: 08/27/23 09:44 EST\.br\Electronically Co-Signed By: Dalia Campos\.br\Date and Time Co-Signed: 08/27/23 09:16 EST 08-05-2023 Procedure note [facility] 08-05-2023 Evaluation note Encounter Date Diagnosis Assessment Notes Jul, Bladder wall thickening (ICD-10 - N32.89) Denies dysuria, polyuria or hematuria. Due to findings, referral for cystoscopy has been initiated. [facility] Other 01-08-2024 Evaluation note* Encounter Date Diagnosis Assessment Notes Treatment Notes Treatment Clinical Notes Jul, Cigarette nicotine dependence without complication (ICD-10 - F17.210) LDCT: 11/2021, 07/2023 [employer] Other 12-28-2023 Evaluation note* Encounter Date Diagnosis [...] I explained to him potential need of [employer] in the near future. I discussed with him different option of [facility] [employer] including transplant, PD and HD. He is [...] and folate level. No need for LUPE. [employer] Other 12-13-2023 Evaluation note* Encounter Date Diagnosis [...] (ICD-10 - Z12.5) Yearly GARRISON and PSA [employer] Other 12-11-2023 Evaluation note* Encounter Date Diagnosis [...] adequate fluid balance and to avoid dehydration. [employer] Other 07-13-2023 Evaluation note* Encounter Date Diagnosis Assessment Notes Treatment Notes Treatment Clinical Notes Jan, Elevated cholesterol (ICD-10 - E78.00) [employer] [facility] Other 07-05-2023 Evaluation note* Encounter Date Diagnosis [...] to respiratory infections, vascular disease and cancers. 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 I discussed with him different option of [employer] including transplant, PD and HD. He is [...] with PCP for referral program. 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 I discussed with him different option of [employer] including transplant, PD and HD. He is [...] potassium diet and provide information about it [employer] Other 07-28-2022 Evaluation note* Encounter Date Diagnosis [...] I explained to him potential need of [employer] in the near future. I discussed with him different option of [employer] including transplant, PD and HD. He is [...] potassium diet and provide information about it [employer] Other [id number] Evaluation note* Encounter Date Diagnosis Assessment Notes [...] I explained to him potential need of [employer] in the near future. I discussed with him different option of [facility] [employer] including transplant, PD and HD. He is [...] potassium diet and provide information about it [employer] Other Evaluation + Plan note Future Appointments Appointment Date:03/19/2024 10:00:00 AM Scheduled Provider:Ada Soares MD Location:[facility] Appointment Type:URO Office Visit [facility] Evaluation noteNo InformationNort Useful at Night Other Evaluation noteNo assessment information available [facility] Work Phone: Evaluation note* Diagnosis Onset Date Resolution Status Anemia acute Carotid stenosis, right acut e Chronic bronchitis acute Chronic kidney disease acute GERD (gastroesophageal reflux disease) acute H/O: gout acute Hypercholesterolemia acute Hypertension acute Hyponatremia acute Nicotine addiction acute [facility] Work Phone: Evaluation note* Diagnosis Onset Date Resolution Status Anemia acute Carotid stenosis, right acut e Chronic bronchitis acute Chronic kidney disease acute GERD (gastroesophageal reflux disease) acute Hypercholesterolemia acute Hypertension acute Hyponatremia acute Nicotine addiction acute Anemia of renal disease acut e Atrophic kidney acute CKD (chronic kidney disease) stage 4, GFR 15-29 ml/min acute Hyperlipidemia acute [id number] acute Hyponatremia acute Secondary hyperparathyroidism acute [facility] Work Phone: Evaluation note* Diagnosis Onset Date Resolution Status Anemia of renal disease acut e Atrophic kidney acute CKD (chronic kidney disease) stage 4, GFR 15-29 ml/min acute Hyperlipidemia acute [id number] acute Hyponatremia acute Secondary hyperparathyroidism acute [facility] Work Phone: History and physical note Author Sixto Dobson [facility] August 05, 2023 3:00pm Note Date/Time August 05, 2023 3: 00pm [facility] [address] [place] [address] Gastroenterology H&P Signed Patient: Sabrina Guevara MR#: [id number] : 1955 Acct:[id number] Age/Sex: 68 / M Adm Date: 4 Loc: Room: Type: [facility] Attending Dr: Sixto Dobson MD Copies to: [...] signed by Sixto Dobson MD> 08/05/23 1500 [facility] Work Phone: History general Narrative - Reported* Type Description Date [...] Surgical History COLONOSCOPY Hospitalization History SEE ABOVE [facility] Other History general Narrative - Reported* Type Description Date [...] History COLONOSCOPY 2019 Hospitalization History SEE ABOVE [facility] Other Histrcs general Narrative - Reported* Type Description Date [...] History COLONOSCOPY 2019 Hospitalization History SEE ABOVE [facility] [employer] general Narrative - Reported* Type Description Date [...] History EGD 07/2023 Hospitalization History SEE ABOVE [facility] Other Hospital course Narrative No data available for this section [facility] Discharge instructions Additional Instructions DISCHARGE INSTRUCTIONS [...] NOT operate machinery such as power tools, lawn mowers, snow blowers, sewing machines, etc. for [...] problems. -Follow up with PCP. -Office number [phone].[facility] Work Phone: Hospital Discharge instructions No data available for this section [facility] Progress note No data available for this section [facility] Reason for referral (narrative)* Reason *Waiting for appt Referral for EGD Diagnosis 1 Weight loss, uninten tional (R63.4) Diagnosis 2 Early satiety (R68.8 1) Diagnosis 3 Anemia, unspecified type (D64.9) Referral Organization [facility] Nereyda C anita Referring Provider First Name Jeremy Referring Provider Last Name Genaro Referring Provider Specialty Internal Me dicine Referred Organization [facility] Gastroenterolo gy Referred Provider Tanvir Mc Referred Address [address] [facility] [address] ,[place], [place],[address] Referred Provider Specialty Gastroentero logy Referral Priority [...] 07/10/2023 09:14:25 AM >received today, referral faxed [facility] [employer] Other Summary Purpose Family History Relationship Condition Age at Onset Recorded Date/T miroslava father Malignant neoplasm Unknown Relationship Condition Age at Onset Recorded Date/T miroslava father Malignant neoplasm Unknown Unknown Not Specified Unknown Relationship Condition Age at Onset Recorded Date/T miroslava father Malignant neoplasm Unknown Unknown mother Unknown Advance Directives Advance Directive Response Recorded Date/ Time Advance Directives No January 22 11:30am Advance Directive Response Recorded Date/ Time [...] disease) stage 4, GFR 15-29 ml/min Hyperlipidemia [id number] Hyponatremia Secondary hyperparathyroidism Chief Complaint RENAL 4 MONTH F/U Reason for Visit Anemia of renal dise ase Atrophic kidney CKD (chronic kidney disease) stage 4, GFR 15-29 ml/min Hyperlipidemia [id number] Hyponatremia Secondary hyperparathyroidism Reason for Referral Reason Mr. Guevara is bein g referred for cystoscopy Diagnosis 1 Bladder wall thicken ing (N32.89) Referral Organization [facility] Genaro howard Referring Provider First Name Jeremy Referring Provider Last Name Genaro Referring Provider Specialty Internal Tx dicine Referred Organization [facility] Referred Address [address],[place], [place],[address] Referred Provider Specialty Urology Referral Priority Routine [...] content) DATE CREATED AUTHOR 12/15/2021 [facility] DATE CREATED AUTHOR AUTHOR'S ORGANIZ ATION 08/16/2023 [facility] DATE CREATED AUTHOR AUTHOR'S ORGANIZ ATION 03/22/2024 [facility] REASON FOR VISIT (unrecogniz ed section and content) CKDCKDNo InformationCKD and hyponatremiaCKD and HTNCKD and HTNNo InformationNo InformationREFILLcheckupNo InformationrefillNo InformationLabsWellness/ BP CheckMAIL PPWCKD and HTNCT resultsNo InformationNo Information Care Teams (unrecognized sec tion and content) Team Status: Active Member Role Status Dates Jeremy Lam DO Primary Care Provider Active Team Status: Active Member Role Status Dates Jeremy Lam DO Primary Care Provider Active Start: October 13, 2023 BRITTANY Hastings Attending Provider Active Start : October 13, 2023 Team Status: Active Member Role Status Dates Jeremy Lam DO Primary Care Provider Active Start: January 05, 2024 Young Berrios MD Attending Provider Active Start : January 05, 2024 Team Status: Inactive Member Role Status Dates Jeremy Lam DO Primary Care Provide r, Attending Provider Active Start: January 08, 2024 End: January 08, 2024 Team Status: Inactive Member Role Status Dates Jeremy Lam DO Primary Care Provider Active Sixto Dobson MD Attending Provider Active Team Status: Inactive Member Role Status Dates Jeremy Lam DO Primary Care Provider Active Start: January 15, 2024 End: January 15, 2024 Young Berrios MD Attending Provider Active Start : January 15, 2024 End: January 15, 2024 Team Status: Active Member Role Status Dates Jeremy Lam DO Primary Care Provider Active Start: May 17, 2024 Young Berrios MD Attending Provider Active Start : May 17, 2024 Team Status: Inactive Member Role Status Dates Jeremy Lam DO Primary Care Provider Active Start: May 20, 2024 End: May 20, 2024 Young Berrios MD Attending Provider Active Start : May 20, 2024 End: May 20, 2024 Goals (unrecognized section and content) Goals [...] BE BASED ON THE PRIMARY CLINICAL RECORDS. [facility]. provides no warranty or guarantee of the accuracy or completeness of information in this document.
[2024-07-07 07:48] LABS: Basophils Absolute Auto 0.1 10^3/uL (0.0-0.1); Basophils Percent Auto 1.2 % (0.2-2.0); Eosinophils Absolute Auto 0.8 10^3/uL (0.0-0.7); Eosinophils Percent Auto 9.5 % (0.9-7.0); Hemoglobin 13.1 g/dL (14.0-18.0); Immature Granulocytes Abs Auto 0.03 10^3/uL (0.00-0.03); Immature Granulocytes Pct Auto 0.4 % (0.0-0.5); Lymphocytes Absolute Auto 1.4 10^3/uL (1.2-3.8); Lymphocytes Percent Auto 16.5 % (20.5-60.0); Mean Corpuscular HGB Conc 36.4 g/dL (29.9-35.2); Mean Corpuscular Hemoglobin 33.7 pg (25.9-34.0); Mean Corpuscular Volume 92.5 fL (80.0-94.0); Mean Platelet Volume 8.8 fL (9.5-13.5); Monocytes Absolute Auto 0.6 10^3/uL (0.3-0.8); Monocytes Percent Auto 6.6 % (1.7-12.0); Neutrophils Absolute Auto 5.6 10^3/uL (1.4-6.5); Neutrophils Percent Auto 65.8 % (43.0-75.0); Platelet Count 233 10^3/uL (150-450); Red Blood Count 3.89 10^6/uL (4.70-6.10); Red Cell Distribution Width 12.6 % (11.0-15.0); White Blood Count 8.4 10^3/uL (4.0-11.0)
[2024-07-07 08:47] LABS: Alanine Aminotransferase 19 U/L (16-63); Albumin Level 3.5 g/dL (3.4-5.0); Alkaline Phosphatase 68 U/L (46-116); Anion Gap 11.8; Aspartate Amino Transferase 22 U/L (15-37); BUN Creatinine Ratio 7.1; Bilirubin Total 0.5 mg/dL (0.2-1.0); Calcium 8.6 mg/dL (8.5-10.1); Chloride 90 mmol/L (98-107); Chol HDL Ratio 3.4; Cholesterol 114 mg/dL (<=200); Estimated GFR (African America 31 (>=60 mL/min/1.73m^2); Estimated GFR (Non-African Ame 26 (>=60 mL/min/1.73m^2); Globulin 3.5 g/dL; Glucose 89 mg/dL (74-106); HDL Cholesterol 34 mg/dL (40-60); Potassium 4.8 mmol/L (3.5-5.1); Triglycerides 119 mg/dL (<=150); VLDL CHOLESTEROL 23.8 mg/dL
[2024-07-07 08:56] LABS: Sodium 122 mmol/L (136-145)
[2024-07-07 08:58] LABS: Prostate Specific Antigen Scrn 0.82 ng/mL (<=4.00)
== END 2024-07-07 07:31 | disposition home or self-care (01) ==
LOC: LAB 07:30
PROVIDERS: PCP Internal Medicine; Visit Provider Internal Medicine
DX: E78.00 Pure hypercholesterolemia, unspecified (principal); N18.4 Chronic kidney disease, stage 4 (severe); Z12.5 Encounter for screening for malignant neoplasm of prostate; I12.9 Hypertensive chronic kidney disease with stage 1 through stage 4 chronic kidney disease, or unspecified chronic kidney disease
CPT/HCPCS: 36415; 80053; 80061; 85025; G0103

== ENCOUNTER 2024-08-05 12:58 | Outpatient (OUT) | payer MEDICARE, SELFPAY ==
--- NOTE | 2024-08-05 13:05 | US_ITS ---
[address] [address] Patient Name: SABRINA MCFARLAND MRN: [id number] date: 1955 Sex: M Assigned Patient Location: CT Current Patient Location: CT Accession/Order Number: [id number] Exam Date: 08/05/2024 13:06 Report Date: 08/05/2024 13:59 At the request of: ROBE WASHBURN Procedure: US carotid duplex BI EXAMINATION: US carotid duplex BI HISTORY: Stenosis Of Right Carotid COMPARISON: No relevant comparison available. TECHNIQUE: Duplex Doppler ultrasound analysis of carotid and vertebral arteries. . Bilateral carotid arterial duplex examination was performed using B-mode, color flow and spectral analysis. Carotid stenosis is reported according to validated velocity parameters, similar to NASCET criteria. FINDINGS: RIGHT CAROTID ARTERY Moderate atherosclerotic plaque. 93% area reduction in the carotid bulb Subclavian: 116.09 cm/s / 0 cm/s CCA: Prox: 106.24 cm/s / 0 cm/s Mid: 76.22 cm/s / 0 cm/s Distal: 50.34 cm/s / 5.05 cm/s BULB: 368.14 cm/s / 139.88 cm/s ICA: Prox: 68.46 cm/s / 10.22 cm/s Mid: 37.42 cm/s / 10.38 cm/s Distal: 19.67 cm/s / 8.16 cm/s ECA: 117.25 cm/s / 4.20 cm/s VERTEBRAL: Not visualized ICA/CCA ratio: 7.7 LEFT CAROTID ARTERY moderate atherosclerotic plaque Subclavian: 207 cm/s / 6.8 cm/s CCA: Prox: 122.02 cm/s / 19.52 cm/s Mid: 109.59 cm/s / 18.92 cm/s Distal: 86.53 cm/s / 15.57 cm/s BULB: 82.58 cm/s / 7.69 cm/s ICA: Prox: 64.58 cm/s / 17.99 cm/s Mid: 72.34 cm/s / 17.99 cm/s Distal: 80.10 cm/s / 25.75 cm/s ECA: 180.77 cm/s / 8.08 cm/s VERTEBRAL: 94.42 cm/s / 25.43 cm/s ICA/CCA ratio: 1.0 US/US carotid duplex BI IMPRESSION: >70% flow stenosis right internal carotid artery with maximum area reduction 93% in the carotid bulb. Further evaluation is recommended 0-49% flow stenosis left internal carotid artery Spectral Doppler US Thresholds (Reference: Baljinder EG, et al. Radiology 2000; 214:247-252) Stenosis (%) PSV (cm/sec) VICA/VCCA 0-49 <150 <2.5 50-69 150-225 2.5-4.0 >70 >225 >4.0 Electronically authenticated by: ADELINA BISHOP Date: 08/05/2024 13:59
--- NOTE | 2024-08-05 13:05 | CT_ITS ---
[address] [address] Patient Name: SABRINA MCFARLAND MRN: [id number] date: 1955 Sex: M Assigned Patient Location: CT Current Patient Location: CT Accession/Order Number: [id number] Exam Date: 08/05/2024 13:10 Report Date: 08/05/2024 14:36 At the request of: ROBE WASHBURN Procedure: CT lung screening low-dose EXAMINATION: CT lung screening low-dose HISTORY: Nicotine Dependence COMPARISON: 08/04/2023 TECHNIQUE: Axial, Coronal, and Sagittal images were created without the administration of IV contrast material. Dose reduction techniques were achieved by using automated exposure control and/or adjustment of mA and/or kV according to patient size and/or use of iterative reconstruction technique. FINDINGS: LUNGS: Minimal centrilobular emphysema with an upper lobe predominance. A few subtle areas of groundglass infiltrate, nonspecific. No new pulmonary nodule or mass PLEURA: No mass, effusion, or pneumothorax. VASCULATURE: No abnormality. JORGE L: No mass or pathologic adenopathy. MEDIASTINUM: No mass or pathologic adenopathy. CARDIAC: No enlargement or pericardial effusion CORONARY ARTERIES: Coronary calcifications are mild. AORTA: No aneurysm or dissection. CHEST WALL: No mass or axillary adenopathy BONES: No bone lesion or fracture. LIMITED ABDOMEN: No suspicious findings. Limited images of the upper abdomen. OTHER: Negative. CT/CT lung screening low-dose IMPRESSION: LUNG SCREENING: Lung-RADS Category 1 Negative. No nodules and definitely benign nodules. Continue annual screening with LDCT in 12 months. Electronically authenticated by: ADELINA BISHOP Date: 08/05/2024 14:36
== END 2024-08-05 12:59 | disposition home or self-care (01) ==
LOC: CT 12:58
PROVIDERS: PCP Internal Medicine; Visit Provider Internal Medicine
DX: I65.21 Occlusion and stenosis of right carotid artery (principal); F17.210 Nicotine dependence, cigarettes, uncomplicated
CPT/HCPCS: 71271; 93880

== ENCOUNTER 2024-09-03 11:29 | Outpatient (OUT) | payer MEDICARE, SELFPAY ==
--- OUTSIDE RECORDS SUMMARY | 2024-09-03 11:52 | XMS_ITS | CCD ---
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 Name Role Phone DR JEREMY LAM Consulting Unavailable GENARO, DR NAGEL Attending Unavailable GENARO, DR NAGEL Admitting Unavailable GENARO, DR NAGEL Primary Care Unavailable HAMILTON, DR ADELINA Crews Consulting Unavailable Young Berrios Unavailable Jeremy Lam Unavailable Sixto Dobson Unavailable DO Jeremy Lam Primary Care Provider MD Sixto Dobson Attending Provider JEREMY LAM Primary Care Physician [phone] Ada Soares Attending Unavailable Ada Soares Attending Unavailable Ada Soares Attending Unavailable JEREMY LAM Referring Unavailable Jeremy Lam DO Primary Care Provider Onofre Francis MD Attending Provider Jeremy Lam Primary Care Unavailable Onofre Francis Attending UnavailOnofre Crespo Admitting Unavailmaki e Allergies Allergy Classification Reported Allergen(s) Allergy Type Date of Onset Reaction(s) Facility (2 sources) patient allergy list reviewed by nurse or physicia Propensity to adverse reactions 9 Comment:Done App[employer] Other (1 source) No Known Medication Allergies; Translations: [No Known Medication Allergies] Propensity to adverse reactions (disorder) [facility] Repository Medications Current Medications Medication Drug Class(es) Dates Sig (Normalized) Sig (Original) amLODIPine 5 mg oral tablet (20 sources) Dihydropyridine Calcium Channel Inna Start: 02-02-2019 End: 09-02-2024 take 1 tablet by mouth once daily in the morning Amlodipine 5 mg tablet Active 5 MG PO Every morning September 02, 2024 12:00am take 1 tablet by kamala th every [...] Date: 08/27/23 Status: Ordered Start: 02-02-2019 take 1 tablet by kamala th once daily in the morning Aspirin 81 mg Tablet,Chewable Active 81 MG PO Every morning February 01, 2019 11:00pm atorvastatin 40 mg oral tablet (20 sources) HMG-CoA Reductase Inhibitor Start: 08-26-2024 End: 09-02-2024 take 1 tablet by mouth once daily in the morning Atorvastatin 40 mg tablet Active 40 MG PO Every morning September 02, 2024 12:00am Start: 03-01-2024 End: 08-26-2024 take 1 tablet by mouth once daily Atorvastatin 20 mg tablet Discontinued 0 .ROUTE .COMPLEX March 01, 2024 10:05am August 26, 2024 11:42am TAKE 1 TABLET BY MOUTH DAILY Start: 03-01-2024 take 1 tablet by kamala th once daily Atorvastatin Active 0 .ROUTE .COMPLEX March 01, 2024 11:05am TAKE 1 TABLET BY MOUTH DAILY Start: 02-02-2019 End: 03-01-2024 take 1 tablet by mouth once daily Atorvastatin 20 mg tablet Discontinued 20 MG PO Daily 90 90 March 01, 2024 8:52am March 01, 2024 10:05am benazepril hydrochloride 40 mg oral tablet (20 sources) Angiotensin Converting Enzyme Inhibitor Start: 08-27-2023 take 1 mg by mouth once daily benazepril 20 mg Tab mg tab(s), Oral, Daily, Refills(s) 0 Start Date: 08/27/23 Status: Ordered Start: 02-02-2019 End: 09-02-2024 Benazepril 40 mg tablet Acti ve 20 MG PO Every morning September 02, 2024 12:00am Start: 02-02-2019 End: 10-14-2023 take 20 mg by mouth once daily Benazepril Active 20 MG PO Daily 45 90 October 14, 2023 4:02pm take 1 tablet by kamala th every twenty-four hours Benazepril HCl 20 MG 1 tablet Orally Once a day Active take 0.5 tablet by m outh once daily Benazepril HCl 40 MG 1/2 tablet Orally Once a day Active clopidogrel 75 mg oral tablet (5 sources) [id number] Platelet Inhibitor Start: 08-26-2024 End: 09-02-2024 take 1 tablet by mouth once daily in the morning Clopidogrel 75 mg tablet Active 75 MG PO Every morning September 02, 2024 12:00am famotidine 40 mg oral tablet (8 sources) Histamine-2 Receptor Antagonist Start: 09-23-2023 End: 09-02-2024 take 1 tablet by mouth once daily in the morning Famotidine (Pepcid) 40 mg tablet Active 40 MG PO Every morning September 02, 2024 12:00am Take 1 tablet orally once a day labetalol hydrochloride 100 mg oral tablet (20 sources) beta-Adrenergic Inna Start: 08-05-2023 End: 04-16-2024 take 1 tablet by mouth twice daily Labetalol 100 mg tablet Active 100 MG PO Twice daily 180 90 April 16, 2024 3:45pm omeprazole 40 mg delayed release oral capsule (8 sources) Proton Pump Inhibitor Start: 08-27-2023 omeprazole 40 mg Cap-DR Refills(s) 0 Start Date: 08/27/23 Status: Ordered Start: 07-09-2023 take 1 capsule by mo uth once daily Omeprazole 40 MG 1 capsule 30 minutes before morning meal Orally Once a day for 30 days Jun, Active tamsulosin hydrochloride 0.4 mg oral capsule (9 sources) alpha-Adrenergic Inna Start: 09-12-2023 take 1 capsule by mouth once daily in the morning Tamsulosin 0.4 mg capsule Active 0.4 MG PO Every morning January 07, 2024 11:00pm Completed/Discontinued Medications Medication Drug Class(es) Dates Sig (Normalized) Sig (Original) ergocalciferol 1.25 mg oral capsule (20 sources) Provitamin D2 Compound Start: 01-15-2024 End: 08-30-2024 take 1 capsule by mouth every other week Ergocalciferol (Vitamin D2) 1,250 mcg (50,000 unit) capsule Discontinued 1250 MCG PO .every other week January 15, 2024 12:06pm August 30, 2024 9:09am Start: 08-27-2023 ergocalciferol 50,000 intl units Cap Refills(s) 0 Start Date: 08/27/23 Status: Ordered Start: 08-27-2023 ergocalciferol 50,000 intl units Cap Refills(s) 0 Start Date: 08/27/23 Status: Ordered Start: 01-09-2023 End: 01-15-2024 take 1 capsule by mouth every week Ergocalciferol (Vitamin D2) 1,250 mcg (50,000 unit) capsule Discontinued 1250 MCG PO every week August 05, 2023 12:00am January 15, 2024 12:06pm Start: 01-09-2023 take 1 capsule by mo uth every week Ergocalciferol 1.25 MG (69712 UT) 1 capsule Orally Q week for 90 days Dec, Active Problems Active Problems Problem Classification Problem Date Documented Date Episodic/Chronic Calculus of urinary tract (3 sources) Kidney stone; Translations: [Calculus of kidney] Onset: 4 Episodic Chronic kidney disease (20 sources) Chronic kidney disease stage 4; Translations: [Chronic kidney disease, stage 4 (severe)] Onset: 2 Resolved: 2 Chronic Chronic obstructive pulmonary disease and bronchiectasis (13 sources) Chronic bronchitis; Translations: [Unspecified chronic bronchitis] 01-06-2024 Chronic Deficiency and other anemia (7 sources) Anemia of renal disease; Translations: [Anemia in chronic kidney disease] Chronic Deficiency and other anemia (1 source) Anemia in chronic kidney disease Chronic Deficiency and other anemia (7 sources) Anemia, unspecified; Translations: [Anemia, unspecified] Episodic Deficiency and other anemia (7 sources) Anemia; Translations: [Anemia, unspecified] 01-08-2024 Episodic Disorders of lipid metabolism (20 sources) Hypercholesterolemia; Translations: [Pure hypercholesterolemia, unspecified] Chronic Esophageal disorders (9 sources) Gastroesophageal reflux disease; Translations: [Gastro-esophageal reflux [...] 2 Resolved: 2 Chronic Hyperplasia of prostate (16 sources) Lower urinary tract symptoms due to benign prostatic hypertrophy; Translations: [Benign prostatic hyperplasia with lower urinary tract symptoms] Onset: 7 Chronic Hypertension with complications and secondary hypertension (20 sources) Chronic kidney disease due to hypertension; Translations: [Hypertensive chronic kidney disease with stage 1 through stage 4 chronic kidney disease, or unspecified chronic kidney disease] Onset: 2 Resolved: 2 Chronic Nausea and vomiting (7 sources) Nausea and vomiting; Translations: [Nausea with vomiting, unspecified] 09-23-2023 Episodic Nephritis; nephrosis; renal sclerosis (20 sources) Nephrosclerosis; Translations: [Atrophy of kidney (terminal)] Onset: 2 Resolved: 2 Chronic Occlusion or stenosis of precerebral arteries (20 sources) Right carotid artery stenosis; Translations: [Occlusion and stenosis of right carotid artery] 08-22-2023 Chronic Comment on above: US: >70% DAMARIS (93% r ight bulb), <50% LICA - 07/2024 Other aftercare (1 source) Long-term current use of aspirin; Translations: [USP (current) use of aspirin] Onset: 4 Episodic Other circulatory disease (3 sources) Carotid bruit; Translations: [Other specified symptoms and signs involving the circulatory and respiratory systems] 08-26-2024 Episodic Other circulatory disease (3 sources) Other specified symptoms and signs involving the circulatory and respiratory systems; Translations: [Other symptoms involving cardiovascular system] 08-26-2024 Episodic Other connective tissue disease (2 sources) [...] 2 Resolved: 2 Chronic Other gastrointestinal disorders (8 sources) Occult blood in stools; Translations: [Other fecal abnormalities] 07-09-2023 Episodic Comment on above: Problem List clean-u p per request of Phys. EHR Cmte Other nutritional; endocrine; and metabolic disorders (1 source) Abnormal weight loss Episodic Other screening for suspected conditions (not mental disorders or infectious disease) (10 sources) Encounter for screening for malignant neoplasm of prostate; Translations: [Patient encounter status] Episodic Residual codes; unclassified (4 sources) Tobacco user; Translations: [Tobacco use] Onset: 7 Episodic Residual codes; unclassified (1 source) Early satiety Episodic Residual codes; unclassified (7 sources) Early satiety; Translations: [Early satiety] 09-23-2023 Episodic Substance-related disorders (20 sources) Nicotine dependence, cigarettes, uncomplicated; Translations: [Nicotine dependence] Onset: 7 Chronic Comment on above: LDCT: no suspicious nodules - 07/2023, 07/2024 Unclassified (2 sources) Long-term current use of [...] Test Name Value Interpretation Reference Range Facility Basophils Auto (Bld) [#/Vol] Ordered By: Onofre Francis on 09-02-2024 Basophils (Bld) [#/Vol] Automated basoph il count 0.0-0.2 [facility] Basophils/100 WBC Auto (Bld) Ordered By: Onofre Francis on 09-02-2024 Basophils/100 WBC (Bld) Automated basophil % . [facility] Calcium [Mass/volume] in Ser um or PlasmaOrdered By: Onofre Francis on 09-02-2024 Calcium [Mass/Vol] Calcium [Mass/volume ] in Serum or Plasma Low 8.6-10.3 [facility] Carbon dioxide, total [Moles /volume] in Serum or PlasmaOrdered By: Onofre Francis on 09-02-2024 CO2 [Moles/Vol] Carbon dioxide, tota l [Moles/volume] in Serum or Plasma 21.0-31.0 [facility] Chloride [Moles/volume] in S iris or PlasmaOrdered By: Onofre Francis on 09-02-2024 Chloride [Moles/Vol] Chloride [Moles/volume] in Serum or Plasma Low 98-107 [facility] Creatinine [Mass/volume] in Serum or PlasmaOrdered By: Onofre Francis on 09-02-2024 Creatinine [Mass/Vol] Creatinine [Mass/volume] in Serum or Plasma High 0.70-1.30 [facility] Eosinophils Auto (Bld) [#/Vo l]Ordered By: Onofre Francis on 09-02-2024 Eosinophils (Bld) [#/Vol] Automated eosinophil count High 0.0-0.45 [facility] Eosinophils/100 WBC Auto (Bl d)Ordered By: Onofre rFancis on 09-02-2024 Eosinophils/100 WBC (Bld) Automated eosinophil % . [facility] Erythrocyte distribution wid th Auto (RBC) [Ratio]Ordered By: Onofre Francis on 09-02-2024 Erythrocyte distribution width (RBC) [Ratio] Erythrocyte distribution width [Ratio] by Automated count 12.0-14.8 [facility] Glucose [Mass/volume] in Ser um or PlasmaOrdered By: Onofre Francis on 09-02-2024 Glucose [Mass/Vol] Glucose [Mass/volume ] in Serum or Plasma 70-100 [facility] Comment on above: ADA recommended refe rence rangeRandom Glucose Reference Range is dependent on time and content of last meal. Glucose of more than 200 mg/dL in a nonstressed, ambulatory subject supports the diagnosis of Diabetes Mellitus. Hematocrit Auto (Bld) [Volum e fraction]Ordered By: Onofre Francis on 09-02-2024 Hematocrit (Bld) [Volume fraction] Hematocrit [Volume Fraction] of Blood by Automated count Low 38.8-50.0 [facility] Hemoglobin [Mass/volume] in BloodOrdered By: Onofre Francis on 09-02-2024 Hemoglobin (Bld) [Mass/Vol] Hemoglobin [Mass/volume] in Blood Low 13.0-17.0 [facility] Leukocytes [#/volume] correc mitchell for nucleated erythrocytes in Blood by Automated counOrdered By: Onofre Francis on 09-02-2024 WBC corrected for nucl RBC Auto (Bld) [#/Vol] Leukocytes [#/volume] corrected for nucleated erythrocytes in Blood by Automated coun 4.1-10.5 [facility] Lymphocytes Auto (Bld) [#/Vo l]Ordered By: Onofre Francis on 09-02-2024 Lymphocytes (Bld) [#/Vol] Lymphocytes [#/volume] in Blood by Automated count 1.00-4.8 [facility] Lymphocytes/100 WBC Auto (Bl d)Ordered By: Onofre Francis on 09-02-2024 Lymphocytes/100 WBC (Bld) Lymphocytes/100 leukocytes in Blood by Automated count . [facility] MCH Auto (RBC) [Entitic mass ]Ordered By: Onofre Francis on 09-02-2024 MCH (RBC) [Entitic mass] MCH [Entitic ma ss] by Automated count 27.5-35.2 [facility] MCHC Auto (RBC) [Mass/Vol]Or dered By: Onofre Francis on 09-02-2024 MCHC (RBC) [Mass/Vol] MCHC [Mass/volume] by Automated count 32.5-35.6 [facility] MCV Auto (RBC) [Entitic vol] Ordered By: Onofre Francis on 09-02-2024 MCV (RBC) [Entitic vol] MCV [Entitic vol ume] by Automated count 83.5-101 [facility] Monocytes Auto (Bld) [#/Vol] Ordered By: Onofre Francis on 09-02-2024 Monocytes (Bld) [#/Vol] Automated blood monocyte count 0.0-0.8 [facility] Monocytes/100 WBC Auto (Bld) Ordered By: Onofre Francis on 09-02-2024 Monocytes/100 WBC (Bld) Automated monocyte % . [facility] Neutrophils Auto (Bld) [#/Vo l]Ordered By: Onofre Francis on 09-02-2024 Neutrophils (Bld) [#/Vol] Neutrophils [#/volume] in Blood by Automated count 1.8-7.7 [facility] Neutrophils/100 WBC Auto (Bl d)Ordered By: Onofre Francis on 09-02-2024 Neutrophils/100 WBC (Bld) Automated neutrophil % . [facility] No Panel InformationOrdered By: Onofre Francis on 09-02-2024 Estimated GFR (CKD-EPI) 32.739 mL/Min [facility] Pharmacy Creatinine Clearance (Chem N/A [facility] Nucleated erythrocytes [Pres ence] in Blood by Automated countOrdered By: Onofre Francis on 09-02-2024 Nucleated RBC Auto Ql (Bld) Nucleated erythrocytes [Presence] in Blood by Automated count 0-0.5 [facility] Platelet mean volume Auto (B ld) [Entitic vol]Ordered By: Onofre Francis on 09-02-2024 Platelet mean volume (Bld) [Entitic vol] Platelet mean volume [Entitic volume] in Blood by Automated count 6.6-10.1 [facility] Platelets Auto (Bld) [#/Vol] Ordered By: Onofre Francis on 09-02-2024 Platelets (Bld) [#/Vol] Platelets [#/vol ume] in Blood by Automated count 150-450 [facility] Potassium [Moles/volume] in Serum or PlasmaOrdered By: Onofre Francis on 09-02-2024 Potassium [Moles/Vol] Potassium [Moles/volume] in Serum or Plasma 3.5-5.1 [facility] RBC Auto (Bld) [#/Vol]Ordere d By: Onofre Francis on 09-02-2024 RBC (Bld) [#/Vol] Erythrocytes [#/volume] in Blood by Automated count Low 3.90-5.60 [facility] Serum or plasma anion gap de terminationOrdered By: Onofre Francis on 09-02-2024 Anion gap [Moles/Vol] Serum or plasma an ion gap determination 6.0-15.0 [facility] Sodium [Moles/volume] in Ser um or PlasmaOrdered By: Onofre Francis on 09-02-2024 Sodium [Moles/Vol] Sodium [Moles/volume ] in Serum or Plasma Critically low 136-145 [facility] Comment on above: Critical Result Call ed to and read back by: ONOFRE GRANDE at: 09/02/2024 17:42:57 by:[id number] Urea nitrogen [Mass/volume] in Serum or PlasmaOrdered By: Onofre Francis on 09-02-2024 Urea nitrogen [Mass/Vol] Urea nitrogen [Mass/volume] in Serum or Plasma 7-25 [facility] WBC Auto (Bld) [#/Vol]Ordere d By: Onofre Francis on 09-02-2024 WBC (Bld) [#/Vol] Leukocytes [#/volume ] in Blood by Automated count 4.1-10.5 [facility] Blood Urea Nitrogenon 2024 Urea nitrogen [Mass/Vol] 14 mg/dL Normal 02-18 [facility] Comment on above: Performed By: #### B UN, CREAT #### [facility] [address] Creatinineon 08-30-2024 Creatinine [Mass/Vol] 2.19 mg/dL High 0.70-1.30 [facility] Comment on above: Performed By: #### B UN, CREAT #### [facility] [address] Creatinine Clr Calc Pharmacy 33.60 Normal [facility] Comment on above: Result Comment: PERF ORMED BY: [place] [id number] PATHOLOGIST COST RECOVERY TECHNICIAN GARCÍA AZUL M.D. Performed By: #### B UN, CREAT #### [address] Estimated GFR 32.202 mL/Min Normal [facility] Comment on above: Performed By: #### B UN, CREAT #### [facility] [address] Creatinine [Mass/volume] in Serum or PlasmaOrdered By: Onofre Francis on 08-30-2024 Creatinine [Mass/Vol] Creatinine [Mass/volume] in Serum or Plasma High 0.70-1.30 [facility] No Panel InformationOrdered By: Onofre Francis on 08-30-2024 Estimated GFR (CKD-EPI) 32.202 mL/Min [facility] Creatinine Clearance (Chem 33.60 [facility] Urea nitrogen [Mass/volume] in Serum or PlasmaOrdered By: Onofre Francis on 08-30-2024 Urea nitrogen [Mass/Vol] Urea nitrogen [Mass/volume] in Serum or Plasma 02-18 [facility] Basophils Auto (Bld) [#/Vol] on 07-07-2024 Basophils (Bld) [#/Vol] Automated basoph il count 0.0-0.1 [facility] Basophils/100 WBC Auto (Bld) on 07-07-2024 Basophils/100 WBC (Bld) Automated basophil % 0. 2-2.0 [facility] Cholesterol in LDL Calc [Mas s/Vol]on 07-07-2024 Cholesterol in LDL [Mass/Vol] Cholesterol in LDL [Mass/volume] in Serum or Plasma by calculation [facility] Comment on above: <100 mg/dl [id number] 0-129 mg/dl NEAR OR ABOVE [id number] mg/dl BORDERLINE [id number] mg/dl HIGH>190 mg/dl VERY HIGH Cholesterol in VLDL Calc [Ma ss/Vol]on 07-07-2024 Cholesterol in VLDL [Mass/Vol] Cholesterol in VLDL [Mass/volume] in Serum or Plasma by calculation [facility] Eosinophils/100 WBC Auto (Bl d)on 07-07-2024 Eosinophils/100 WBC (Bld) Automated eosinophil % High 0.9-7.0 [facility] Erythrocyte distribution wid th Auto (RBC) [Ratio]on 07-07-2024 Erythrocyte distribution width (RBC) [Ratio] Erythrocyte distribution width [Ratio] by Automated count 11.0-15.0 [facility] Estimated glomerular filtrat ion rate (GFR) non- Americanon 07-07-2024 GFR/1.73 sq M.predicted among non-blacks MDRD (S/P/Bld) [Vol rate/Area] Estimated glomerular filtration rate (GFR) non- Low >=60 mL/min/1.73m 2 [facility] Globulin Calc (S) [Mass/Vol] on 07-07-2024 Globulin (S) [Mass/Vol] Serum globulin measurement by calculation (mass/volume) [facility] Hematocrit Auto (Bld) [Volum e fraction]on 07-07-2024 Hematocrit (Bld) [Volume fraction] Hematocrit [Volume Fraction] of Blood by Automated count Low 42.0-54.0 [facility] Hemoglobin [Mass/volume] in Bloodon 07-07-2024 Hemoglobin (Bld) [Mass/Vol] Hemoglobin [Mass/volume] in Blood Low 14.0-18.0 [facility] Laboratory - Chemistry and C hemistry - challengeon 07-07-2024 Albumin [Mass/Vol] 3.5 g/dL 3.4-5.0 [facility] ALP [Catalytic activity/Vol] 68 U/L 46-116 [facility] ALT [Catalytic activity/Vol] 19 U/L 16-63 [facility] AST [Catalytic activity/Vol] 22 U/L 15-37 [facility] Bilirubin [Mass/Vol] 0.5 mg/dL 0.2-1.0 [facility] Calcium [Mass/Vol] 8.6 mg/dL 8.5-10.1 [facility] Chloride [Moles/Vol] 90 mmol/L Low 98-107 [facility] Cholesterol [Mass/Vol] 114 mg/dL <=200 [facility] Cholesterol in HDL [Mass/Vol] 34 mg/dL Low 40-60 [facility] Comment on above: > or =60 mg/dl - LOW CARDIOVASCULAR RISK<40 mg/dl - HIGH CARDIOVASCULAR RISK CO2 [Moles/Vol] 25.0 mmol/L 21.0-32.0 [facility] Creatinine [Mass/Vol] 2.52 mg/dL High 0.70-1.30 [facility] GFR/1.73 sq M.predicted MDRD (S/P/Bld) [Vol rate/Area] 31 mL/min/{1.73_m2} Low >=60 mL/min/1.73m 2 [facility] Glucose [Mass/Vol] 89 mg/dL 74-106 [facility] Potassium [Moles/Vol] 4.8 mmol/L 3.5-5.1 [facility] Protein [Mass/Vol] 7.0 g/dL 6.4-8.2 [facility] Sodium [Moles/Vol] 122 mmol/L Critically low 136-145 [facility] Comment on above: RESULTS CALLED TO LENO MCKNIGHT RMA Triglyceride [Mass/Vol] 119 mg/dL <=150 [facility] Urea nitrogen [Mass/Vol] 18.0 mg/dL 7.0-18.0 [facility] Urea nitrogen/Creatinine [Mass ratio] 7.1 mg/mg [facility] Laboratory - Hematology and Cell countson 07-07-2024 Immature granulocytes/100 WBC (Bld) 0.4 % 0.0-0.5 [facility] Leukocytes [#/volume] correc mitchell for nucleated erythrocytes in Blood by Automated counon 07-07-2024 WBC corrected for nucl RBC Auto (Bld) [#/Vol] Leukocytes [#/volume] corrected for nucleated erythrocytes in Blood by Automated coun 4.0-11.0 [facility] Lymphocytes Auto (Bld) [#/Vo l]on 07-07-2024 Lymphocytes (Bld) [#/Vol] Lymphocytes [#/volume] in Blood by Automated count 1.2-3.8 [facility] Lymphocytes/100 WBC Auto (Bl d)on 07-07-2024 Lymphocytes/100 WBC (Bld) Lymphocytes/100 leukocytes in Blood by Automated count Low 20.5-60.0 [facility] MCH Auto (RBC) [Entitic mass ]on 07-07-2024 MCH (RBC) [Entitic mass] MCH [Entitic ma ss] by Automated count 25.9-34.0 [facility] MCHC Auto (RBC) [Mass/Vol]on 07-07-2024 MCHC (RBC) [Mass/Vol] MCHC [Mass/volume] by Automated count High 29.9-35.2 [facility] MCV Auto (RBC) [Entitic vol] on 07-07-2024 MCV (RBC) [Entitic vol] MCV [Entitic vol ume] by Automated count 80.0-94.0 [facility] Monocytes Auto (Bld) [#/Vol] on 07-07-2024 Monocytes (Bld) [#/Vol] Automated blood monocyte count 0.3-0.8 [facility] Monocytes/100 WBC Auto (Bld) on 07-07-2024 Monocytes/100 WBC (Bld) Automated monocyte % 1. 7-12.0 [facility] Neutrophils Auto (Bld) [#/Vo l]on 07-07-2024 Neutrophils (Bld) [#/Vol] Neutrophils [#/volume] in Blood by Automated count 1.4-6.5 [facility] Neutrophils/100 WBC Auto (Bl d)on 07-07-2024 Neutrophils/100 WBC (Bld) Automated neutrophil % 43.0-75.0 [facility] No Panel Informationon 12-11 -2024 Eosinophils # (Auto) 0.8 10 3/uL High 0.0-0.7 [facility] Immature Granulocyte # (Auto) 0.03 10 3/uL 0.00-0.03 [facility] Prostate Specific Antigen Screen 0.82 ng/mL <=4.00 [facility] Platelet mean volume Auto (B ld) [Entitic vol]on 07-07-2024 Platelet mean volume (Bld) [Entitic vol] Platelet mean volume [Entitic volume] in Blood by Automated count Low 9.5-13.5 [facility] Platelets Auto (Bld) [#/Vol] on 07-07-2024 Platelets (Bld) [#/Vol] Platelets [#/vol ume] in Blood by Automated count 150-450 [facility] RBC Auto (Bld) [#/Vol]on RBC (Bld) [#/Vol] Erythrocytes [#/volume] in Blood by Automated count Low 4.70-6.10 [facility] Serum or plasma albumin/glob ulin mass ratioon 07-07-2024 Albumin/Globulin [Mass ratio] Serum or plasma albumin/globulin mass ratio [facility] Serum or plasma anion gap de terminationon 07-07-2024 Anion gap [Moles/Vol] Serum or plasma an ion gap determination [facility] Serum or plasma total choles terol/high density lipoprotein (HDL) cholesterol mass edith 07-07-2024 Cholesterol.total/Choles terol in HDL [Mass ratio] Serum or plasma total cholesterol/high density lipoprotein (HDL) cholesterol mass rat [facility] Comment on above: 3.3 - 4.4 LOW RISK4. 4 - 7.1 AVERAGE RISK7.1 - 11.0 MODERATE RISK>11.0 HIGH RISK Erythrocyte distribution wid th Auto (RBC) [Ratio]on 05-17-2024 Erythrocyte distribution width (RBC) [Ratio] 12.5 % 11.0-15.0 [facility] Estimated glomerular filtrat ion rate (GFR) non- Americanon 05-17-2024 GFR/1.73 sq M.predicted among non-blacks MDRD (S/P/Bld) [Vol rate/Area] 27 mL/min/{1.73_m2} Low >=60 mL/min/1.73m 2 [facility] Hematocrit Auto (Bld) [Volum e fraction]on 05-17-2024 Hematocrit (Bld) [Volume fraction] 36.5 % Low 42.0-54.0 [facility] Hemoglobin [Mass/volume] in Bloodon 05-17-2024 Hemoglobin (Bld) [Mass/Vol] 13.0 g/dL Low 14.0-18.0 [facility] Iron binding capacity [Mass/ volume] in Serum or Plasmaon 05-17-2024 Iron binding capacity [Mass/Vol] 177.0 ug/dL Low 250.0-450.0 [facility] Iron saturation [Mass Fracti on] in Serum or Plasmaon 05-17-2024 Iron saturation [Mass fraction] 35.0 % [facility] Laboratory - Chemistry and C hemistry - challengeon 05-17-2024 Albumin [Mass/Vol] 3.2 g/dL Low 3.4-5.0 [facility] Calcium [Mass/Vol] 8.4 mg/dL Low 8.5-10.1 [facility] Chloride [Moles/Vol] 93 mmol/L Low 98-107 [facility] CO2 [Moles/Vol] 24.1 mmol/L 21.0-32.0 [facility] Creatinine [Mass/Vol] 2.43 mg/dL High 0.70-1.30 [facility] Ferritin [Mass/Vol] 297.0 ng/mL 26.0-388.0 [facility] GFR/1.73 sq M.predicted MDRD (S/P/Bld) [Vol rate/Area] 33 mL/min/{1.73_m2} Low >=60 mL/min/1.73m 2 [facility] Glucose [Mass/Vol] 95 mg/dL 74-106 [facility] Iron [Mass/Vol] 62.0 ug/dL Low 65.0-175.0 [facility] Magnesium [Mass/Vol] 2.0 mg/dL 1.8-2.4 [facility] Potassium [Moles/Vol] 4.7 mmol/L 3.5-5.1 [facility] Sodium [Moles/Vol] 128 mmol/L Low 136-145 [facility] Urate [Mass/Vol] 5.6 mg/dL 3.5-7.2 [facility] Urea nitrogen [Mass/Vol] 17.0 mg/dL 7.0-18.0 [facility] Urea nitrogen/Creatinine [Mass ratio] 7.0 mg/mg [facility] Bilirubin Ql (U) Negative NEGATIVE [facility] Glucose (U) [Mass/Vol] Negative NEGATIVE [facility] Ketones Ql (U) Negative NEGATIVE [facility] pH (U) 6.0 [pH] 5.0-9.0 [facility] Specific gravity (U) [Rel density] <=1.005 Abnormal 1.005-1.025 [facility] Urobilinogen Qn (U) 0.2 {Edgar'U}/dL 0.2-1.0 [facility] Laboratory - Specimen inform ationon 05-17-2024 Appearance (U) CLEAR CLEAR [facility] Color (U) LT. YELLOW YELLOW [facility] Laboratory - Urinalysison Leukocyte esterase Test strip Ql (U) Negative NEGATIVE [facility] Mucus Ql (Urine sed) NONE SEEN NONE SEEN [facility] Nitrite Ql (U) Negative NEGATIVE [facility] Protein (U) [Mass/Vol] 14.8 mg/dL High <=11.9 [facility] Protein Ql (U) Negative NEG/TRACE [facility] Leukocytes [#/volume] correc mitchell for nucleated erythrocytes in Blood by Automated counon 05-17-2024 WBC corrected for nucl RBC Auto (Bld) [#/Vol] 8.6 10 3/uL 4.0-11.0 [facility] MCH Auto (RBC) [Entitic mass ]on 05-17-2024 MCH (RBC) [Entitic mass] 33.2 pg 25.9-34.0 [facility] MCHC Auto (RBC) [Mass/Vol]on 05-17-2024 MCHC (RBC) [Mass/Vol] 35.6 g/dL High 29.9-35.2 [facility] MCV Auto (RBC) [Entitic vol] on 05-17-2024 MCV (RBC) [Entitic vol] 93.1 fL 80.0-94.0 [facility] No Panel Informationon 05-17 25-Hydroxy Vitamin D Total 81.1 ng/mL [facility] Comment on above: <20 ng/mL Vit D defi cient20-<30 ng/mL Vit D dvqpfwlnobry34-396 ng/mL Vit D sufficient>100 ng/mL Potential Toxicity Parathyroid Hormone (Intact) 51 pg/mL 15-65 [facility] Comment on above: Performed at: [employer] [facility] [employer] [address] [id number] Director: Yakov Sheikh PhD, Phone: [phone] Phosphorus Level 3.4 mg/dL 2.6-4.7 [facility] Urine Bacteria TRACE #/HPF Abnormal NONE SEEN [facility] Urine Culture Reflexed NO [facility] Urine Occult Blood Negative NEGATIVE [facility] Urine Other Casts NONE SEEN #/LPF NONE SEEN [facility] Urine Other Crystals None Seen #/HPF None Seen [facility] Urine Random Creatinine 40.25 mg/dL 20.00-300.0 0 [facility] Urine RBC NONE SEEN #/HPF 0-2 [facility] Urine Squamous Epithelial Cells RARE #/LPF NONE/RARE [facility] Urine WBC NONE SEEN #/HPF NONE SEEN [facility] Platelet mean volume Auto (B ld) [Entitic vol]on 05-17-2024 Platelet mean volume (Bld) [Entitic vol] 9.1 fL Low 9.5-13.5 [facility] Platelets Auto (Bld) [#/Vol] on 05-17-2024 Platelets (Bld) [#/Vol] 283 10 3/uL 150-450 [facility] RBC Auto (Bld) [#/Vol]on RBC (Bld) [#/Vol] 3.92 10 6/uL Low 4.70-6.10 [facility] Serum or plasma anion gap de terminationon 05-17-2024 Anion gap [Moles/Vol] 15.6 mmol/L Fi [facility] Urine protein/creatinine rat ioon 05-17-2024 Protein/Creatinine (U) [Ratio] 0.37 [facility] Erythrocyte distribution wid th Auto (RBC) [Ratio]on 01-05-2024 Erythrocyte distribution width (RBC) [Ratio] 12.3 % 11.0-15.0 [facility] Estimated glomerular filtrat ion rate (GFR) non- Americanon 01-05-2024 GFR/1.73 sq M.predicted among non-blacks MDRD (S/P/Bld) [Vol rate/Area] 26 mL/min/{1.73_m2} >=60 [facility] Hematocrit Auto (Bld) [Volum e fraction]on 01-05-2024 Hematocrit (Bld) [Volume fraction] 34.2 % 42.0-54.0 [facility] Hemoglobin [Mass/volume] in Bloodon 01-05-2024 Hemoglobin (Bld) [Mass/Vol] 12.3 g/dL 14.0-18.0 [facility] Laboratory - Chemistry and C hemistry - challengeon 01-05-2024 Albumin [Mass/Vol] 3.9 g/dL 3.4-5.0 [facility] Calcium [Mass/Vol] 8.9 mg/dL 8.5-10.1 [facility] Chloride [Moles/Vol] 91 mmol/L 98-107 [facility] CO2 [Moles/Vol] 24.4 mmol/L 21.0-32.0 [facility] Creatinine [Mass/Vol] 2.46 mg/dL 0.70-1.30 [facility] Ferritin [Mass/Vol] 275.0 ng/mL 26.0-388.0 [facility] GFR/1.73 sq M.predicted MDRD (S/P/Bld) [Vol rate/Area] 32 mL/min/{1.73_m2} >=60 [facility] Glucose [Mass/Vol] 67 mg/dL 74-106 [facility] Magnesium [Mass/Vol] 2.0 mg/dL 1.8-2.4 [facility] Potassium [Moles/Vol] 4.9 mmol/L 3.5-5.1 [facility] Sodium [Moles/Vol] 124 mmol/L 136-145 [facility] Comment on above: RESULTS CALLED TO ANABELL VILLANUEVA CALLED TO []@BY Gil Stevenson MLT at 1636 Urate [Mass/Vol] 6.8 mg/dL 3.5-7.2 [facility] Urea nitrogen [Mass/Vol] 21.0 mg/dL 7.0-18.0 [facility] Urea nitrogen/Creatinine [Mass ratio] 8.5 mg/mg [facility] Bilirubin Ql (U) Negative NEGATIVE [facility] Glucose (U) [Mass/Vol] Negative NEGATIVE [facility] Ketones Ql (U) Negative NEGATIVE [facility] pH (U) 6.0 [pH] 5.0-9.0 [facility] Specific gravity (U) [Rel density] <=1.005 1.005-1.025 [facility] Urobilinogen Qn (U) 1.0 {Edgar'U}/dL 0.2-1.0 [facility] Laboratory - Specimen inform ationon 01-05-2024 Appearance (U) CLEAR CLEAR [facility] Color (U) LT. YELLOW YELLOW [facility] Laboratory - Urinalysison Leukocyte esterase Test strip Ql (U) Negative NEGATIVE [facility] Mucus Ql (Urine sed) NONE SEEN NONE SEEN [facility] Nitrite Ql (U) Negative NEGATIVE [facility] Protein (U) [Mass/Vol] 13.4 mg/dL <=11.9 [facility] Protein Ql (U) Negative NEG/TRACE [facility] Leukocytes [#/volume] correc mitchell for nucleated erythrocytes in Blood by Automated counon 01-05-2024 WBC corrected for nucl RBC Auto (Bld) [#/Vol] 7.8 10 3/uL 4.0-11.0 [facility] MCH Auto (RBC) [Entitic mass ]on 01-05-2024 MCH (RBC) [Entitic mass] 33.1 pg 25.9-34.0 [facility] MCHC Auto (RBC) [Mass/Vol]on 01-05-2024 MCHC (RBC) [Mass/Vol] 36.0 g/dL 29.9-35.2 [facility] MCV Auto (RBC) [Entitic vol] on 01-05-2024 MCV (RBC) [Entitic vol] 91.9 fL 80.0-94.0 [facility] No Panel Informationon 01-04 25-Hydroxy Vitamin D Total 77.4 ng/mL [facility] Comment on above: <20 ng/mL Vit D defi cient20-<30 ng/mL Vit D aplfmlrreict26-896 ng/mL Vit D sufficient>100 ng/mL Potential Toxicity Parathyroid Hormone (Intact) 43 pg/mL 15-65 [facility] Comment on above: Performed at: [address] [id number] Director: Yakov Sheikh PhD, Phone: [phone] Phosphorus Level 3.3 mg/dL 2.6-4.7 [facility] Urine Bacteria NONE SEEN #/HPF NONE SEEN [facility] Urine Occult Blood Negative NEGATIVE [facility] Urine Other Casts NONE SEEN #/LPF NONE SEEN [facility] Urine Other Crystals None Seen #/HPF None Seen [facility] Urine Random Creatinine 52.39 mg/dL 20.00-300.0 0 [facility] Urine RBC 0-2 #/HPF 0-2 [facility] Urine Squamous Epithelial Cells NONE SEEN #/LPF NONE/RARE [facility] Urine WBC 0-2 #/HPF NONE SEEN [facility] Platelet mean volume Auto (B ld) [Entitic vol]on 01-05-2024 Platelet mean volume (Bld) [Entitic vol] 9.3 fL 9.5-13.5 [facility] Platelets Auto (Bld) [#/Vol] on 01-05-2024 Platelets (Bld) [#/Vol] 211 10 3/uL 150-450 [facility] RBC Auto (Bld) [#/Vol]on RBC (Bld) [#/Vol] 3.72 10 6/uL 4.70-6.10 [facility] Serum or plasma anion gap de terminationon 01-05-2024 Anion gap [Moles/Vol] 13.5 mmol/L [facility] Urine protein/creatinine rat ioon 01-05-2024 Protein/Creatinine (U) [Ratio] 0.26 [facility] Consent for Procedure/Surger yon 09-15-2023 Consent for Procedure/Surgery [id number]#1 .00TIFF [facility] Ambulatory Visit Summaryon 0 09-12-2023 Ambulatory [...] Follow-Up Appointments Friday 10:00 AM EDT With: Ada Soares MD Where: [facility] Urology Office/Clinic Noteon 09-12-2023 Urology Office/Clinic Note [...] Calculus of kidney) CT AP wo Con @[facility] 08/04/23 - 6.5mm LLP stone. -Dietary modifications including increased fluids -Discuss surveillance imaging at follow up 4. 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 7. Aspirin long-term use (Z79.82: USP (current) use of aspirin) Aspirin 81mg. [1] Follow-up With When Contact Information Rodger BRIDGES, Ada Morris, URL, [facility] [address], [place] [address]- [phone] Additional Instructions: 6 mos (new med) Patient Education Cystoscopy I, Humera Jones, personally scribed for Dr. Soares on 09/12/2023 08:09:10. . Documentation recorded by the Humera hickman, accurately reflects the services(s) I performed and decisions made by me. Authenticated by Dr. Soares (more content not included)... [facility] Comment on above: Result Comment: Elec tronically Signed By: Ada Soares MD\.br\Date and Time Signed: 09/12/23 08:18 EST\.br\Electronically Co-Signed By: Humera Jones\.br\Date and Time Co-Signed: 09/12/23 08:09 EST Physician Referralon 024 Physician Referral [id number] .00TIFF [facility] Screenson 09-02-2023 Screens [id number]# 1.00TIFF [facility] Screens [id number]# 1.00TIFF [facility] Ambulatory Visit Summaryon 0 08-27-2023 Ambulatory [...] including vitamins, herbs, eye drops, creams, and qjeu-pqr-nxflolp medicines. ? Any problems you or family [...] tells you to take them. ? Taking lusg-zfx-yahewmp medicines, vitamins, herbs, and supplements. Tests You may have an exam or testing, such as: ? X-rays of the bladder, urethra, or kidneys. ? CT scan of the abdome (more content not included)... [facility] Patient Educationon 08-27-19 Patient Education Nephrology Dietary [...] ? 8 oz (237 mL) of milk, calcium-fortifiednon- dairy milk, and calcium-fortifiedfrui t juice. Calcium-fortified means that calcium has been [...] Spinach (cooked), rhubarb, beets, sweet potatoes, and Mongolian chard. ? Peanuts. ? Potato chips, lithuanian fries, and baked potatoes with skin on. ? Nuts and nut products. ? Chocolate. ? If you regularly take a diuretic medicine, make sure to eat at least 1 or 2 servings of fruits or vegetables that are high in potassium each day. These include: ? Avocado. ? Banana. ? Burleson, prune, carrot, or tomato juice. ? Baked [...] fish oil, or vitamin B6. ? Take jqzv-awc-nijdsrr and prescription medicines only as told by your health care provider. These include supplements. What foods sh (more content not included)... [facility] Amphetamine Screen Ql (U)Ord ered By: Sixto Dobson on 08-05-2023 Amphetamines Ql (U) Negative Negative [facility] Barbiturates [Presence] in U rine by Screen methodOrdered By: Sixto Dobson on 08-05-2023 Barbiturates Screen Ql (U) Negative Negative [facility] Benzodiazepines Screen Ql (U )Ordered By: Sixto Dobson on 08-05-2023 Benzodiazepines Ql (U) Negative Negative [facility] Benzoylecgonine [Presence] i n Urine by Screen methodOrdered By: Sixto Dobson on 08-05-2023 Benzoylecgonine Screen Ql (U) Negative Negative [facility] Cannabinoids [Presence] in U rine by Screen methodOrdered By: Sixto Dobson on 08-05-2023 Cannabinoids Screen Ql (U) Positive Negative [facility] Comment on above: These are unconfirme d results and should not be used for legal purposes. Drug Cut-Off Concentration: AMPH 1000 ng/mL NORMA 200 ng/mL LUIS 200 ng/mL COCM 300 ng/mL OP 300 ng/mL PCP 25 ng/mL THC 20 ng/mL Opiates [Presence] in Urine by Screen methodOrdered By: Sixto Dobson on 08-05-2023 Opiates Screen Ql (U) Negative Negative [facility] Phencyclidine Screen Ql (U)O rdered By: Sixto Dobson on 08-05-2023 Phencyclidine Ql (U) Negative Negative [facility] CT LUNG CANCER SCREENINGon 0 12-08-2021 [...] by: ADELINA BISHOP Date: 2021-12-08 11:21 Normal [facility] Vital Signs Date Time Vital Sign Value Performing Clinician Facility 09-01-2024 10:13-0500 Body height 182.88 cm Jeremy Ball DO Work Phone: [facility] 09-01-2024 10:13-0500 Body mass index (BMI) [Ratio] 21.7 kg/m2 Jeremy Ball DO Work Phone: [facility] 09-01-2024 10:13-0500 Body temperature 98.4 [degF] Jeremy Ball DO Work Phone: [facility] 09-01-2024 10:13-0500 Body weight 72.57 kg Jeremy Ball DO Work Phone: [facility] 09-01-2024 10:13-0500 Diastolic blood pressure 58 mm[Hg] Jeremy Ball DO Work Phone: [facility] 09-01-2024 10:13-0500 Heart rate 90 /min Jeremy Ball DO Work Phone: [facility] 09-01-2024 10:13-0500 SaO2% (BldA) [Mass fraction] 98 % Jeremy Ball DO Work Phone: [facility] 09-01-2024 10:13-0500 Systolic blood pressure 110 mm[Hg] Jeremy Ball DO Work Phone: [facility] 08-30-2024 12:48-0500 Diastolic blood pressure 76 mm[Hg] Jeremy Ball DO Work Phone: [facility] 08-30-2024 12:48-0500 Heart rate 58 /min Jeremy Ball DO Work Phone: [facility] 08-30-2024 12:48-0500 Respiratory rate 16 /min Jeremy Ball DO Work Phone: [facility] 08-30-2024 12:48-0500 SaO2% (BldA) [Mass fraction] 99 % Jeremy Ball DO Work Phone: [facility] 08-30-2024 12:48-0500 Systolic blood pressure 136 mm[Hg] Jeremy Ball DO Work Phone: [facility] 08-30-2024 12:18-0500 Inhaled oxygen flow rate 3 L/min Jeremy Ball DO Work Phone: [facility] 08-30-2024 09:14-0500 Body height 182.88 cm Jeremy Ball DO Work Phone: [facility] 08-30-2024 09:14-0500 Body weight 72.57 kg Jeremy Ball DO Work Phone: [facility] 08-26-2024 11:11-0500 Body height 182.88 cm [facility] 08-26-2024 11:11-0500 Body mass index (BMI) [Ratio] 21.7 kg/m2 [facility] 08-26-2024 11:11-0500 Body temperature 97.8 [degF] [facility] 08-26-2024 11:11-0500 Body weight 72.57 kg [facility] 08-26-2024 11:11-0500 Diastolic blood pressure 68 mm[Hg] [facility] 08-26-2024 11:11-0500 Heart rate 63 /min [facility] 08-26-2024 11:11-0500 Respiratory rate 16 /min [facility] 08-26-2024 11:11-0500 SaO2% (BldA) [Mass fraction] 97 % [facility] 08-26-2024 11:11-0500 Systolic blood pressure 116 mm[Hg] [facility] 07-12-2024 10:04-0500 Body height 182.88 cm [facility] 07-12-2024 10:04-0500 Body mass index (BMI) [Ratio] 22.1 kg/m2 [facility] 07-12-2024 10:04-0500 Body weight 74.16 kg [facility] 07-12-2024 10:04-0500 Diastolic blood pressure 70 mm[Hg] [facility] 07-12-2024 10:04-0500 Heart rate 84 /min [facility] 07-12-2024 10:04-0500 Respiratory rate 12 /min [facility] 07-12-2024 10:04-0500 Systolic blood pressure 122 mm[Hg] [facility] 05-20-2024 11:09-0400 Body height 182.88 cm [facility] 05-20-2024 11:09-0400 Body mass index (BMI) [Ratio] 21.2 kg/m2 [facility] 05-20-2024 11:09-0400 Body temperature 98.1 [degF] [facility] 05-20-2024 11:09-0400 Body weight 70.98 kg [facility] 05-20-2024 11:09-0400 Diastolic blood pressure 66 mm[Hg] [facility] 05-20-2024 11:09-0400 Heart rate 76 /min [facility] 05-20-2024 11:09-0400 Respiratory rate 18 /min [facility] 05-20-2024 11:09-0400 SaO2% (BldA) [Mass fraction] 99 % [facility] 05-20-2024 11:09-0400 Systolic blood pressure 116 mm[Hg] [facility] 01-15-2024 13:04-0400 Body height 182.88 cm [facility] 01-15-2024 13:04-0400 Body mass index (BMI) [Ratio] 21.5 kg/m2 [facility] 01-15-2024 13:04-0400 Body temperature 98.3 [degF] [facility] 01-15-2024 13:04-0400 Body weight 72.12 kg [facility] 01-15-2024 13:04-0400 Diastolic blood pressure 60 mm[Hg] [facility] 01-15-2024 13:04-0400 Heart rate 78 /min [facility] 01-15-2024 13:04-0400 Respiratory rate 16 /min [facility] 01-15-2024 13:04-0400 SaO2% (BldA) [Mass fraction] 96 % [facility] 01-15-2024 13:04-0400 Systolic blood pressure 132 mm[Hg] [facility] 01-08-2024 10:12-0400 Body height 182.88 cm [facility] 01-08-2024 10:12-0400 Body mass index (BMI) [Ratio] 21.2 kg/m2 [facility] 01-08-2024 10:12-0400 Body weight 70.87 kg [facility] 01-08-2024 10:12-0400 Diastolic blood pressure 69 mm[Hg] [facility] 01-08-2024 10:12-0400 Heart rate 66 /min [facility] 01-08-2024 10:12-0400 Respiratory rate 12 /min [facility] 01-08-2024 10:12-0400 Systolic blood pressure 127 mm[Hg] [facility] 08-05-2023 15:44-0500 Diastolic blood pressure 82 mm[Hg] DO Jeremy Ball Work Phone: [facility] 08-05-2023 15:44-0500 Heart rate 78 /min DO Jeremy Ball Work Phone: [facility] 08-05-2023 15:44-0500 Respiratory rate 16 /min DO Jeremy Ball Work Phone: [facility] 08-05-2023 15:44-0500 SaO2% (BldA) [Mass fraction] 97 % DO Jeremy Ball Work Phone: [facility] 08-05-2023 15:44-0500 Systolic blood pressure 157 mm[Hg] DO Jeremy Ball Work Phone: [facility] 08-05-2023 13:26-0500 Body height 182.88 cm DO Jeremy Ball Work Phone: [facility] 08-05-2023 13:26-0500 Body weight 68.03 kg DO Jeremy Ball Work Phone: [facility] 07-24-2023 12:40-0500 Body height 182.88 cm Young Yash Other [employer] Other 07-24-2023 12:40-0500 Body mass index (BMI) [Ratio] 21.83 kg/m2 Young Y[facility] Other [employer] Other 07-24-2023 12:40-0500 Body temperature 98.6 [degF] Young Yash Other [employer] Other 07-24-2023 12:40-0500 Body weight 73.03 kg Young Yash Other [employer] Other 07-24-2023 12:40-0500 Diastolic blood pressure 62 mm[Hg] Young Yash Other [employer] Other 07-24-2023 12:40-0500 Respiratory rate 16 /min Young Y[facility] Other [employer] Other 07-24-2023 12:40-0500 SaO2% (BldA) [Mass fraction] 100 % Young [facility] Other [employer] Other 07-24-2023 12:40-0500 Systolic blood pressure 130 mm[Hg] Young Y[facility] Other [employer] Other 07-09-2023 10:30-0500 Body height 182.88 cm Jeremy Ball Other [employer] Other 07-09-2023 10:30-0500 Body mass index (BMI) [Ratio] 21.13 kg/m2 Jeremy Ball Other [employer] Other 07-09-2023 10:30-0500 Body weight 70.67 kg Jeremy Ball Other [employer] Other 07-09-2023 10:30-0500 Diastolic blood pressure 69 mm[Hg] Jeremy Ball Other [employer] Other 07-09-2023 10:30-0500 Respiratory rate 12 /min Jeremy Ball Other [employer] Other 07-09-2023 10:30-0500 Systolic blood pressure 131 mm[Hg] Jeremy Ball Other [employer] Other 01-29-2023 13:30-0400 Body height 182.88 cm Jermey Ball Other [employer] Other 01-29-2023 13:30-0400 Body mass index (BMI) [Ratio] 22.32 kg/m2 Jeremy Ball Other [employer] Other 01-29-2023 13:30-0400 Body weight 74.66 kg Jeremy Ball Other [employer] Other 01-29-2023 13:30-0400 Diastolic blood pressure 66 mm[Hg] Jeremy Ball Other [employer] Other 01-29-2023 13:30-0400 Respiratory rate 12 /min Jeremy Ball Other [employer] Other 01-29-2023 13:30-0400 Systolic blood pressure 119 mm[Hg] Jeremy Ball Other [employer] Other 01-07-2023 11:20-0400 Body height 182.88 cm Young Yash Other [employer] Other 01-07-2023 11:20-0400 Body mass index (BMI) [Ratio] 22.62 kg/m2 Young Yash Other [employer] Other 01-07-2023 11:20-0400 Body temperature 97.7 [degF] Young Yash Other [employer] Other 01-07-2023 11:20-0400 Body weight 75.66 kg Young Yash Other [employer] Other 01-07-2023 11:20-0400 Diastolic blood pressure 64 mm[Hg] Young Yash Other [employer] Other 01-07-2023 11:20-0400 Respiratory rate 18 /min Young Yash Other [employer] Other 01-07-2023 11:20-0400 SaO2% (BldA) [Mass fraction] 99 % Young Yash Other [employer] Other 01-07-2023 11:20-0400 Systolic blood pressure 127 mm[Hg] Young Yash Other [employer] Other 02-21-2022 11:20-0400 Body height 182.88 cm Young Yash Other [employer] Other 02-21-2022 11:20-0400 Body mass index (BMI) [Ratio] 23.95 kg/m2 Young Yash Other [employer] Other 02-21-2022 11:20-0400 Body temperature 96.8 [degF] Young Yash Other [employer] Other 02-21-2022 11:20-0400 Body weight 80.11 kg Young Yash Other [employer] Other 02-21-2022 11:20-0400 Diastolic blood pressure 62 mm[Hg] Young Yash Other [employer] Other 02-21-2022 11:20-0400 Respiratory rate 18 /min Young Yash Other [employer] Other 02-21-2022 11:20-0400 SaO2% (BldA) [Mass fraction] 98 % Young Yash Other [employer] Other 02-21-2022 11:20-0400 Systolic blood pressure 119 mm[Hg] Young Yash Other [employer] Other 11-08-2021 11:00-0400 Body height 182.88 cm Yougn Yash Other [employer] Other 11-08-2021 11:00-0400 Body mass index (BMI) [Ratio] 24.79 kg/m2 Young Yash Other [employer] Other 11-08-2021 11:00-0400 Body temperature 97.6 [degF] Young Yash Other [employer] Other 11-08-2021 11:00-0400 Body weight 82.92 kg Young Yash Other [employer] Other 11-08-2021 11:00-0400 Diastolic blood pressure 74 mm[Hg] Young Yash Other [employer] Other 11-08-2021 11:00-0400 Respiratory rate 18 /min Young Yash Other [employer] Other 11-08-2021 11:00-0400 SaO2% (BldA) [Mass fraction] 98 % Young Yash Other [employer] Other 11-08-2021 11:00-0400 Systolic blood pressure 139 mm[Hg] Young Yash Other [employer] Other Encounters Encounter Date Encounter Type Care Provider Facility Start: 09-02-2024 End: 09-02-2024 ambulatory Jeremy Ball DO Work Phone: [facility] Work Phone: Start: 09-02-2024 End: 09-02-2024 Patient encounter procedure Jeremy Ball DO Work Phone: [facility] Work Phone: Start: 09-01-2024 End: 09-01-2024 ambulatory Jeremy Ball DO Work Phone: [facility] Work Phone: Start: 09-01-2024 End: 09-01-2024 Patient encounter procedure Jeremy Ball DO Work Phone: [facility] Work Phone: Start: 08-30-2024 Non-patient / Non-visit Benjam in Ball DO Work Phone: [facility] Work Phone: Start: 08-30-2024 End: 08-30-2024 Admission to same day surgery center Jeremy Ball DO Work Phone: [facility]-Interventional Radiology Work Phone: Start: 08-30-2024 End: 08-30-2024 ambulatory Jeremy Ball DO Work Phone: [facility] Work Phone: Start: 08-26-2024 End: 08-26-2024 ambulatory [facility] [place] Work Phone: Start: 08-26-2024 End: 08-26-2024 Patient encounter procedure [facility] Work Phone: Start: 07-12-2024 End: 07-12-2024 Patient encounter procedure [facility] Work Phone: Start: 07-09-2024 Non-patient / Non-visit [facility] Work Phone: Start: 07-07-2024 Non-patient / Non-visit [facility] Work Phone: Start: 05-20-2024 End: 05-20-2024 ambulatory [facility] Work Phone: Start: 05-20-2024 End: 05-20-2024 Patient encounter procedure [facility] Nephrology Richard Work Phone: Start: 05-17-2024 Non-patient / Non-visit [facility] Work Phone: Start: 03-19-2024 End: 03-19-2024 ambulatory Ada Soares Facility:[facility] Start: 03-19-2024 End: 03-19-2024 Patient encounter procedure Ada Soares [facility] Start: 01-15-2024 End: 01-15-2024 ambulatory [facility] Work Phone: Start: 01-15-2024 End: 01-15-2024 Patient encounter procedure [facility] Nephrology Richard Work Phone: Start: 01-08-2024 End: 01-08-2024 ambulatory [facility] Work Phone: Start: 01-08-2024 End: 01-08-2024 Patient encounter procedure [facility] Work Phone: Start: 01-05-2024 Non-patient / Non-visit [facility] Work Phone: Start: 10-13-2023 Non-patient / Non-visit [facility] Work Phone: Start: 09-12-2023 End: 09-12-2023 ambulatory Ada M. Lue Facility:[facility] [place] Start: 09-12-2023 End: 09-12-2023 Patient encounter procedure Ada M. Lue [facility] Start: 08-27-2023 End: 08-27-2023 ambulatory Ada M. Lue Facility:[facility] [place] Start: 08-18-2023 End: 08-18-2023 ambulatory Young Yash Other [facility] Other Start: 08-18-2023 Telephone encounter Youngglenys Jordanr [facility] Start: 08-14-2023 ambulatory Ada Lue Facility:[facility] [place] Start: 08-11-2023 ambulatory Ada Lue Facility:[facility] [place] Start: 08-05-2023 Telephone encounter Jeremy SPENCE [facility] Start: 08-05-2023 End: 08-05-2023 Admission to same day surgery center DO Jeremy Lam Work Phone: [facility]-Digestive Health Work Phone: Start: 08-05-2023 End: 08-05-2023 ambulatory DO Jeremy Lam Work Phone: [facility] Work Phone: Start: 08-04-2023 End: 08-04-2023 ambulatory Young Yash Other [employer] Other Start: 08-04-2023 Telephone encounter Young Yash [facility] Start: 07-24-2023 End: 07-24-2023 ambulatory Yuong Yash Other [employer] Other Start: 07-24-2023 Office outpatient vi sit 25 minutes Young Yash [facility] Start: 07-17-2023 End: 07-17-2023 ambulatory Sixto Dobson Other [employer] Other Start: 07-17-2023 Telephone encounter Sixto Pascal [facility] Start: 07-09-2023 End: 07-09-2023 ambulatory Jeremy Lam Other [employer] Other Start: 07-09-2023 Patient encounter procedure Jeremy Lam [facility] Start: 07-07-2023 End: 07-07-2023 ambulatory Jeremy Lam Other [employer] Other Start: 07-07-2023 Telephone encounter Jeremy Genaro [facility] Start: 04-08-2023 End: 04-08-2023 ambulatory Jeremy Lam Other [employer] Other Start: 04-08-2023 Telephone encounter Jeremy SPENCE [facility] Start: 02-06-2023 End: 02-06-2023 ambulatory Jeremy Lam Other [employer] Other Start: 02-06-2023 Telephone encounter Jeremy SPENCE [facility] Start: 01-29-2023 End: 01-29-2023 ambulatory Jeremy Lam Other [employer] Other Start: 01-29-2023 Office outpatient vi sit 15 minutes Jeremy Lam [facility] Start: 01-29-2023 Telephone encounter Jeremy SPENCE G [facility] Start: 01-14-2023 End: 01-14-2023 ambulatory Jeremy Lam Other [employer] Other Start: 01-14-2023 Telephone encounter Jeremy SPENCE [facility] Start: 01-08-2023 End: 01-08-2023 ambulatory Young Yash Other [employer] Other Start: 01-08-2023 Telephone encounter Young Yash [facility] Start: 01-07-2023 End: 01-07-2023 ambulatory Young Yash Other [employer] Other Start: 01-07-2023 Office outpatient vi sit 25 minutes Young Yash [facility] Start: 01-07-2023 Telephone encounter Young Yash [facility] Start: 02-21-2022 End: 02-21-2022 ambulatory Young Yash Other [employer] Other Start: 02-21-2022 Office outpatient vi sit 25 minutes Yuong Yash [facility] Start: 02-21-2022 Telephone encounter Young Yash [facility] Start: 12-08-2021 End: 12-09-[address] JEREMY LAM Facility: Start: 11-29-2021 Adult health examination Jeremy Genaro Other [employer] Other Start: 11-08-2021 End: 11-08-2021 ambulatory Young Yash Other [facility] Other Start: 11-08-2021 Office outpatient vi sit 25 minutes Amara KRISHNA [facility] Procedures Date Procedure Procedure Detail Performing Clinician Start: 08-30-2024 Radiographic imaging procedure Jeremy Lam DO Work Phone: Start: 09-12-2023 Cystoscope, device (physical object) Ada Soares Start: 08-05-2023 Esophagogastroduodenoscopy DO Jeremy Caro all Work Phone: Start: 06-13-2017 General examination of patient Jeremy Lam Other Start: 06-13-2017 Screening for malignant neoplasm of colon Jeremy Lam Other Appendectomy Ada Soares Colonoscopy Ada Soares Tonsillectomy Ada Soares Plan of Treatment Date Care Activity Detail Author Start: 08-30-2024 [facility] Start: 08-05-2023 [facility] CT Neck WO contrast [facility] CT Unspecified body region WO contrast [facility] Patient Education Wound Care for Arterial Puncture (DC) Know your Meds [facility] Work Phone: Patient referral [facility] Work Phone: Renal function 1999 panel - Serum or Plasma [facility] Renal function 1999 panel - Serum or Plasma [facility] US.doppler Carotid arteries - bilateral [facility] Immunizations Immunization Date Immunization Notes Care Provider Shaniqua blackman 12-04-2020 COVID-19 Vaccine Mod poly - Documentation Purposes Only Jeremy Lam Other [facility] Comment on above: Result Comment: 2023: [id number] 11-06-2020 COVID-19 Vaccine Mod poly - Documentation Purposes Only Jeremy Lam Other [facility] Comment on above: Result Comment: 2023: [id number] 06-15-2020 zoster vaccine recombinant Jeremy Lam Other [facility] 04-12-2020 zoster vaccine recombinant Jeremy Lam Other [facility] Payers Date Payer Category Payer Self-pay [id number] 2024 Unknown [id number] 2023 Medicare [id number] 2.1 [id number] 2023 Private Health Insurance [id number] 1959 Private Health Insurance [id number] 1957 Unknown [id number] [id number] [id number] 1957 Unknown [id number] 2.16.8 [id number] 1957 Unknown [id number] 2.16.8 [id number] 1957 Unknown [id number] 2.16.8 [id number] 1957 Unknown [id number] 2.16.8 [id number] 1957 Unknown [id number] 2.16.8 [id number] Private Health Insurance [id number] Unknown [id number] [id number] [id number] Social History Date Type Detail Facility Unknown if ever smoked [employer] Other Start: 07-28-2067 Sex Assigned At F [facility] Start: 08-05-2023 End: 09-02-2024 Tobacco smoking status NHIS Smoker (finding) [facility] Start: 1955 Sex Assigned At Male F [facility] Start: 08-27-2023 Tobacco smoking status Heavy t obacco smoker (finding) [facility] Tobacco smoking status Never [facility] Start: 08-26-2024 End: 09-03-2024 Sex Male (finding) [facility] Goals Date Patient Goal Desired Activity /State Functional Status Date Assessment Result Facility 09-12-2023 Functional Status N/A [facility] Clinical Notes 11-08-2021 to 08-30-2024 Note Date & Type Note Facility 08-30-2024 Procedure note [facility] enter 07-12-2024 Evaluation note Diagnosis Onset Date Resolution Anemia acute July 12, 2024 9:56am Carotid stenosis, right acute D ecember 2023 9:56am Chronic bronchitis acute Decemb er 2023 9:56am Chronic kidney disease acute De cember 2023 9:56am Hypercholesterolemia acute Dece mber 2023 9:56am Hypertension acute June 9:56am Hyponatremia acute June 9:56am Nicotine addiction acute Decemb er 2023 9:56am Screening PSA (prostate specific antigen) acute July 12, 2024 9:56am Medicare annual wellness visit, initial noneactive July 12, 2024 9:56am [facility] Work Phone: 1(911) 788-620612-16-2024 Evaluation note* Diagnosis Onset Date Resolution Status Admit Date Anemia acute July 12, 2024 9:56am Carotid stenosis, right acute D ecember 2023 9:56am Chronic bronchitis acute Decemb er 2023 9:56am Chronic kidney disease acute De cember 16th, 2024 9:56am Hypercholesterolemia acute Dece mber 2023 9:56am Hypertension acute June 9:56am Hyponatremia acute June 9:56am Nicotine addiction acute Decemb er 2023 9:56am Screening PSA (prostate spec ific antigen) acute July 12, 024 9:56am Medicare annual wellness vis it, initial noneactive July 12 9:56am Carotid bruit acute July 10:43am CKD (chronic kidney disease) stage 4, GFR 15-29 ml/min acute 2024 10:43am Occlusion and stenosis of bilateral carotid arteries acute 2024 10:43am [facility] Work Phone: 1(179) 936-285712-16-2024 Evaluation note* Diagnosis Onset Date Resolution Status Admit Date Anemia acute July 12, 2024 9:56am Carotid stenosis, right acute D ecember 2023 9:56am Chronic bronchitis acute Dece er 2023 9:56am Chronic kidney disease acute De cember 2023 9:56am Hypercholesterolemia acute Dece mber 2023 9:56am Hypertension acute June 9:56am Hyponatremia acute June 9:56am Nicotine addiction acute [facility] er 2023 9:56am Screening PSA (prostate spec ific antigen) acute July 12, 9:56am Medicare annual wellness vis it, initial noneactive July 12 9:56am Carotid bruit acute July 10:43am CKD (chronic kidney disease) stage 4, GFR 15-29 ml/min acute 2024 10:43am Occlusion and stenosis of bilateral carotid arteries acute 2024 10:43am Occlusion and stenosis of bilateral carotid arteries acute u 2024 9:52am [facility] Work Phone: 1(915) 247-992902-16-2024 Hospital Discharge instructions Patient Education 09/12/2023 08:06:25 Cystoscopy Cystoscopy [...] including vitamins, herbs, eye drops, creams, and wjap-cln-ovlawcx medicines. Any problems you or family members [...] provider tells you to take them. Taking cour-hti-pcueumy medicines, vitamins, herbs, and supplements. Tests You [...] Follow these instructions at home: Medicines Take atui-mvc-vvhncqq and prescription medicines only as told by your health care provider. If you were prescribed an antibiotic medicine, take it as told by your health care provider. Do notstop taking the antibiotic even if you start [...] blood in your urine increases, call your healthcare provider. Follow instructions from your health care provider about eating or drinking restrictions. If a tissue sample was removed for testing (biopsy) during your procedure, it is up to you to get your test results. Ask your health care provider, or the department that is doing the test, when yourresults will be ready. Drink enough fluid to [...] blood in your urine increases, call your healthcare provider. If you were prescribed an antibiotic medicine, take it as told by your health care provider. Do notstop taking the antibiotic even if you start to feel better. This information is not intended to replace advice given to you by your health care provider. Make sure you discuss any questions you have with your health care provider. Document Revised: 03/27/2022 Document Reviewed: 02/23/2021 [employer] Patient Education 2022 [place]. Follow Up Care 08/27/2023 10:15:46 With:Rodger BRIDGES, MCKAYLA Tipton, URO Address: [address] [place] [address] [phone] When: Unknown Comments:6 mos ([facility] med) [facility] 02-16-2024 NoteUrology Cystoscopy Cystoscopy is a procedure that is [...] including vitamins, herbs, eye drops, creams, and qnvy-wcb-ewauonx medicines. ? Any problems you or family [...] tells you to take them. ? Taking tbyw-fwj-bhpqlzq medicines, vitamins, herbs, and supplements. Tests You [...] taken to help prevent infection. These steps mayinclude: ? Washing skin with a germ-killing soap. [...] these instructions at home: Medicines ? Take xrsr-gtd-mnrcody and prescription medicines only as told by [...] procedure, it is up to you to getyour test results. Ask your health care provider, or the department th (more content not included)...[facility] 08-27-2023 NoteChief Complaint Referral *Bladder Wall Thickening [facility] Staff Hem[place] Automatic referral for bladder wall thickening by Dr Jeremy Lam. Current PSA done 07/08/23 was 0.77 andprevious done 04/08/[address] done 08/04/23 [...] a time, but currently smoking 1 pack aday. Denies visible blood in urine. Hesitancy with [...] disorders of bladder) CT AP wo Con @[facility] 08/04/23 - right urinary bladder wall thickening [...] need to do a cysto to possibly determinewhat is causing the bladder wall thickening and we will hold off on getting a any more imaging donedo to his kidney function. May need BL [...] informed consent has been obtained. Will order Localanesthesia. -Consider BL RPG intraop based on cysto findings 2. Kidney stone (N20.0: Calculus of kidney) CT AP wo Con @[facility] 08/04/23 - 6.5mm LLP stone Discussed imaging report with pt, does have a stone noted, will continue to monitor. Likely due to atrophic kidney on left. Counseled pt on the dietary modifications to prevent future stones. Advisedpt to go to the ER if he starts to feel pain or signs of passing the stone. Advised pt to drink plenty of fluids. -Dietary modifications including increased fluids 3. Atrophic kidney (N26.1: Atrophy of kidney (terminal)) CT AP wo Con @[facility] 08/04/23 - left atrophic kidney 07/08/23 - Cr 2.35, GFR 34 Unable to receive IV contrast due to CKD -Follows with Dr. Berrios 4. Urinary hesitancy (R39.11: Hesitancy of micturition) Hesitancy with weak stream since before the Holidays. Uncomfortable at times, but not concerned. Denies frequency & nocturia. Denies leakin (more content not included)...[facility]:Result Comment: Electronically Signed By: Ada Soares MD.br\Date and Time Signed: 08/27/23 09:44EST\.br\Electronically Co-Signed By: Dalia Campos\.br\Date and Time Co-Signed: 08/27/23 09:16 [id number] Procedure [facility]01-09-2024 Evaluation note* Encounter Date Diagnosis Assessment Notes Treatment Notes Treatment Clinical Notes Jul, Bladder wall thickening (ICD-10 - N32.89) Denies dysuria, polyuria or hematuria. Due to findings, referral for cystoscopy has been initiated. [employer] Other 01-08-2024 Evaluation note* Encounter Date Diagnosis Assessment Notes Treatment Notes Treatment Clinical Notes Jul, Cigarette nicotine dependence without complication (ICD-10 - F17.210) LDCT: 11/2021, 07/2023 [employer] Other 12-28-2023 Evaluation note* Encounter Date Diagnosis [...] I explained to him potential need of HE[employer] MECH[employer]IC in the near future. I discussed with him different option of HEAVY DUTY MECHANIC including transplant, PD and HD. He is [...] and folate level. No need for LUPE. [employer] Other 12-13-2023 Evaluation note* Encounter Date Diagnosis [...] (ICD-10 - Z12.5) Yearly GARRISON and PSA [employer] Other 12-11-2023 Evaluation note* Encounter Date Diagnosis [...] adequate fluid balance and to avoid dehydration. [employer] Other 07-13-2023 Evaluation note* Encounter Date Diagnosis Assessment Notes Treatment Notes Treatment Clinical Notes Jan, Elevated cholesterol (ICD-10 - E78.00) [employer] Other 07-05-2023 Evaluation note* Encounter Date Diagnosis [...] to respiratory infections, vascular disease and cancers. 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 I discussed with him different option of HEAVY DUTY MECHANIC including transplant, PD and HD. He is [...] potassium diet and provide information about it [employer] Other 06-13-2023 Evaluation note* Encounter Date Diagnosis [...] I explained to him potential need of HEAVY D[employer]Y MECHANIC in the near future. I discussed with him different option of HEAVY DUTY MECHANIC including transplant, PD and HD. He is interested in PD. I have referred him to the kidney [employer] classes Dec, Hyponatremia (ICD-10 - E87.1) He [...] potassium diet and provide information about it [employer] Other 07-28-2022 Evaluation note* Encounter Date Diagnosis [...] I explained to him potential need of HEAVY DUTY MECHANIC in the near future. I discussed with him different option of HEAVY DUTY MECHANIC including transplant, PD and HD. He is [...] potassium diet and provide information about it [employer] Other 04-14-2022 Evaluation note* Encounter Date Diagnosis [...] I explained to him potential need of HEAVY D[employer]Y MECHANIC in the near future. I discussed with him different option of HEAVY DUTY MECHANIC including transplant, PD and HD. He is [...] potassium diet and provide information about it [place] [employer] Other Evaluation + Plan note Future Appointments Appointment Date:03/19/2024 10:00:00 AM Scheduled Provider:Rodger BRIDGES, Ada Morris Location:[facility] Appointment Type:URO Office Visit [facility] evalufhxpv noteNo InformationNort [employer] Other evalugaibu noteNo assessment information available [facility] Work Phone: evalukfeji note* Diagnosis Onset Date Resolution Status Anemia acute Carotid stenosis, right acut e Chronic bronchitis acute Chronic kidney disease acute GERD (gastroesophageal reflux disease) acute H/O: gout acute Hypercholesterolemia acute Hypertension acute Hyponatremia acute Nicotine addiction acute [facility] Work Phone: Evaluation note* Diagnosis Onset Date Resolution Status Anemia acute Carotid stenosis, right acut e Chronic bronchitis acute Chronic kidney disease acute GERD (gastroesophageal reflux disease) acute Hypercholesterolemia acute Hypertension acute Hyponatremia acute Nicotine addiction acute Anemia of renal disease acut e Atrophic kidney acute CKD (chronic kidney disease) stage 4, GFR 15-29 ml/min acute Hyperlipidemia acute [id number] acute Hyponatremia acute Secondary hyperparathyroidism acute [facility] Work Phone: Evaluation note* Diagnosis Onset Date Resolution Status Anemia of renal disease acut e Atrophic kidney acute CKD (chronic kidney disease) stage 4, GFR 15-29 ml/min acute Hyperlipidemia acute [id number] acute Hyponatremia acute Secondary hyperparathyroidism acute [facility] Work Phone: History and physical note Author Sixto Dobson [facility] August 05, 2023 3:00pm Note Date/Time August 05, 2023 3: 00pm [facility] [address] [place] [address] Gastroenterology H&P Signed Patient: Sabrina Guevara MR#: [id number] : 1955 Acct:[id number] Age/Sex: 68 / M Adm Date: 4 Loc: Room: Type: [facility] Attending Dr: Sixto Dobson MD Copies to: [...] signed by Sixto Dobson MD> 08/05/23 1500 [facility] Work Phone: Hisytlg general Narrative - Reported* Type Description Date [...] Surgical History COLONOSCOPY Hospitalization History SEE ABOVE [employer] Other Hisvtlc general Narrative - Reported* Type Description Date [...] History COLONOSCOPY 2019 Hospitalization History SEE ABOVE [employer] Other Histzeo general Narrative - Reported* Type Description Date [...] History COLONOSCOPY 2019 Hospitalization History SEE ABOVE [employer] Other Histofg general Narrative - Reported* Type Description Date [...] History EGD 07/2023 Hospitalization History SEE ABOVE [employer] Other Hospital course Narrative No data available for this section [facility] Discharge instructions Additional Instructions DISCHARGE [...] problems. -Follow up with PCP. -Office number [phone].[facility] Work Phone: Hospital Discharge instructions No data available for this section [facility] Progress note No data available for this section [facility] Reason for referral (narrative)* Reason *Waiting for appt Referral for EGD Diagnosis 1 Weight loss, uninten tional (R63.4) Diagnosis 2 Early satiety (R68.8 1) Diagnosis 3 Anemia, unspecified type (D64.9) Referral Organization [facility] Referring Provider First Name Jeremy Referring Provider Last Name Genaro Referring Provider Specialty Internal Me dicine Referred Organization [facility] Gastroenterolo gy Referred Provider Tanvir Mc Referred Address [address] [place] [id number] Referred Provider Specialty Gastroentero logy Referral Priority [...] 07/10/2023 09:14:25 AM >received today, referral faxed [facility] [employer] Other Summary Purpose Family History Relationship Condition Age at Onset Recorded Date/T miroslava father Malignant neoplasm Unknown Relationship Condition Age at Onset Recorded Date/T miroslava father Malignant neoplasm Unknown Unknown Not Specified Unknown Relationship Condition Age at Onset Recorded Date/T miroslava father Malignant neoplasm Unknown Unknown mother Unknown Relationship Condition Age at Onset Recorded Date/T miroslava father Unknown Malignant neoplasm Unknown Transient ischemic attack Unknown mother Unknown Advance Directives Advance Directive [...] disease) stage 4, GFR 15-29 ml/min Hyperlipidemia [id number] Hyponatremia Secondary hyperparathyroidism Chief Complaint RENAL 4 MONTH F/U Reason for Visit Anemia of renal dise ase Atrophic kidney CKD (chronic kidney disease) stage 4, GFR 15-29 ml/min Hyperlipidemia [id number] Hyponatremia Secondary hyperparathyroidism Chief Complaint Admit Date CC Adult Risk Stratification July 092023 1:26pm wellness July 12, 2024 9:56am Ref from Dr. Lam; Carotid Stenosis Quirino 2024 10:43am Reason for Visit Admit Date Anemia July 12, 2024 9:56am Carotid stenosis, right July 12, 2 024 9:56am Chronic bronchitis July 12, 2024 9:56am Chronic kidney disease July 12 9:56am Hypercholesterolemia July 12, 2024 9:56am Hypertension July 12, 2024 9:56am Hyponatremia July 12, 2024 9:56am Nicotine addiction July 12, 2024 9:56am Screening PSA (prostate specific antigen ) July 12, 2024 9:56am Medicare annual wellness visit, initial July 12, 2024 9:56am Chief Complaint Admit Date CC Adult Risk Stratification July 092023 1:26pm wellness July 12, 2024 9:56am Ref from Dr. Lam; Carotid Stenosis Quirino 2024 10:43am Carotid Stenosis August 30, 2024 8 :59am Carotid Stenosis August 30, 2024 1 0:33am Reason for Visit Admit Date Anemia July 12, 2024 9:56am Carotid stenosis, right July 12, 2 024 9:56am Chronic bronchitis July 12, 2024 9:56am Chronic kidney disease July 12 9:56am Hypercholesterolemia July 12, 2024 9:56am Hypertension July 12, 2024 9:56am Hyponatremia July 12, 2024 9:56am Nicotine addiction July 12, 2024 9:56am Screening PSA (prostate specific antigen ) July 12, 2024 9:56am Medicare annual wellness visit, initial July 12, 2024 9:56am Carotid bruit August 26, 2024 1 0:43am CKD (chronic kidney disease) stage 4, GF R 15-29 ml/min August 26, 2024 10:43am 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 August 26, 2024 10:43am Chief Complaint Admit Date CC Adult Risk Stratification July 092023 1:26pm wellness July 12, 2024 9:56am Ref from Dr. Lam; Carotid Stenosis Quirino carley 2024 10:43am Carotid Stenosis August 30, 2024 8 :59am Carotid Stenosis August 30, 2024 1 0:33am To go over angiogram; Carotid Stenosis [facility]2024 9:52am Chief Complaint Admit Date CC Adult Risk Stratification July 092023 1:26pm wellness July 12, [address] Lam; Carotid Stenosis [facility] 2024 10:43am Carotid Stenosis August 30, 2024 8 :59am Carotid Stenosis August 30, 2024 1 0:33am To go over angiogram; Carotid Stenosis F [facility] 2024 9:52am Carotid Stenosis September 02, 2024 3 :21pm Reason for Visit Admit Date Anemia July 12, 2024 9:56am Carotid stenosis, right July 12, 2 024 9:56am Chronic bronchitis July 12, 2024 9:56am Chronic kidney disease July 12 9:56am Hypercholesterolemia July 12, 2024 9:56am Hypertension July 12, 2024 9:56am Hyponatremia July 12, 2024 9:56am Nicotine addiction July 12, 2024 9:56am Screening PSA (prostate specific antigen ) July 12, 2024 9:56am Medicare annual wellness visit, initial July 12, 2024 9:56am Carotid bruit August 26, 2024 1 0:43am CKD (chronic kidney disease) stage 4, GF R 15-29 ml/min August 26, 2024 10:43am 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 August 26, 2024 10:43am 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 September 01, 2024 9:52am Reason for Referral Reason Mr. Guevara is bein g referred for cystoscopy Diagnosis 1 Bladder wall thicken ing (N32.89) Referral Organization [facility] Referring Provider First Name Jeremy Referring Provider Last Name Genaro Referring Provider Specialty Internal Me dicine Referred Organization [facility] [address] Address [address] [facility] [address], [place],[address] Referred Provider Specialty Urology Referral Priority Routine [...] pital DATE CREATED AUTHOR AUTHOR'S ORGANIZ ATION 03/22/2024 [facility] DATE CREATED AUTHOR AUTHOR'S ORGANIZ ATION 08/31/2024 [facility] REASON FOR VISIT (unrecogniz ed section and [...] May 20, 2024 End: May 20, 2024 Team Status: Active Member Role Status Minesh Lam DO Primary Care Provide r, Attending Provider Active Start: July 07, 2024 Team Status: Active Member Role Status Minesh Lam DO Primary Care Provide r, Attending Provider Active Start: July 09, 2024 Team Status: Inactive Member Role Status Minesh Lam DO Primary Care Provide r, Attending Provider Active Start: July 12, 2024 End: July 12, 2024 Team Status: Inactive Member Role Status Minesh Lam DO Primary Care Provider Active Start: August 26, 2024 End: August 26, 2024 Onofre Francis MD Attending Provider Active Start: August 26, 2024 End: August 26, 2024 Team Status: Inactive Member Role Status Minesh Lam DO Primary Care Provider Active Start: August 30, 2024 End: August 30, 2024 Onofre Francis MD Attending Provider Active Start: August 30, 2024 End: August 30, 2024 Team Status: Active Member Role Status Minesh Lam DO Primary Care Provider Active Start: August 30, 2024 Onofre Francis MD Attending Prov ider, Other Provider Active Start: August 30, 2024 Team Status: Inactive Member Role Status Minesh Lam DO Primary Care Provider Active Start: September 01, 2024 End: September 01, 2024 Onofre Francis MD Attending Provider Active Start: September 01, 2024 End: September 01, 2024 Team Status: Inactive Member Role Status Dates Jeremy Ball , DO Primary Care Provider Active Start: September 02, 2024 End: September 02, 2024 Onofre Francis MD Attending Provider Active Start: September 02, 2024 End: September 02, 2024 Goals (unrecognized section and content) Goals [...] BE BASED ON THE PRIMARY CLINICAL RECORDS. [employer] provides no warranty or guarantee of the accuracy or completeness of information in this document.
[2024-09-03 12:27] LABS: Sodium Urine Random 29 mmol/L (30-90)
[2024-09-03 12:47] LABS: Uric Acid 6.1 mg/dL (3.5-7.2)
[2024-09-04 21:07] LABS: Osmolality, Urine 226 mOsmol/kg (.)
== END 2024-09-03 11:30 | disposition home or self-care (01) ==
LOC: LAB 11:30
PROVIDERS: PCP Internal Medicine; Visit Provider Internal Medicine
DX: E87.1 Hypo-osmolality and hyponatremia (principal); I10 Essential (primary) hypertension; R53.83 Other fatigue; R79.89 Other specified abnormal findings of blood chemistry
CPT/HCPCS: 36415; 83930; 83935; 84300; 84439; 84443; 84550

== ENCOUNTER 2024-09-13 09:41 | Outpatient (OUT) | payer MEDICARE, SELFPAY ==
--- OUTSIDE RECORDS SUMMARY | 2024-09-13 10:04 | XMS_ITS | CCD ---
Author Organization [facility] Care Team Providers Care Special Education Coordinator Name Role Phone DR JEREMY LAM Consulting Unavailable GENARO, DR NAGEL Attending Unavailable GENARO, DR NAGEL Admitting Unavailable GENARO, DR NAGEL Primary Care Unavailable WEST, DR ADELINA Crews Consulting Unavailable Young Berrios Unavailable Jeremy Lam Unavailable Sixto Dobson Unavailable DO Jeremy Lam Primary Care Provider [phone] MD Sixto Dobson Attending Provider JEREMY LAM Primary Care Physician [phone] Ada Soares Attending Unavailable Ada Soares Attending Unavailable Ada Soares Attending Unavailable JEREMY LAM Referring Unavailable Jeremy Lam DO Primary Care Provider Onofre Francis MD Attending Provider [phone] MAINTENANCE TECHNICIAN-CShirley Attending Provider Onofre Francis Admitting UnavailOnofre Crespo Attending Jeremy Dave Primary Care Unavailable Jeremy Lam Primary Care Unavailable Shirley Collins Admitting Unavailable Shirley Collins Attending Unavailable Onofre Francis Attending UnavailJeremy Moreira Primary Care Unavailable Onofre Francis Admitting Unavailmaki e Allergies Allergy Classification Reported Allergen(s) Allergy Type Date of Onset Reaction(s) Facility (2 sources) patient allergy list reviewed by nurse or physicia Propensity to adverse reactions 9 Comment:Done Buildingeye Other (1 source) No Known Medication Allergies; Translations: [No Known Medication Allergies] Propensity to adverse reactions (disorder) [facility] Repository Medications Current Medications Medication Drug Class(es) Dates Sig (Normalized) Sig (Original) aspirin 81 mg oral capsule (20 sources) [...] 01, 2024 8:52am March 01, 2024 10:05am clopidogrel 75 mg oral tablet (7 sources) P2Y12 Platelet Inhibitor Start: 08-26-2024 End: 09-02-2024 take 1 tablet by mouth once daily in the morning Clopidogrel 75 mg tablet Active 75 MG PO Every morning September 02, 2024 12:00am famotidine 40 mg oral tablet (10 sources) Histamine-2 Receptor Antagonist Start: 09-23-2023 End: [...] Start: 07-09-2023 take 1 capsule by mo [facility] once daily Omeprazole 40 MG 1 capsule 30 minutes before morning meal Orally Once a day for 30 days Jun, Active tamsulosin hydrochloride 0.4 mg oral capsule (10 sources) alpha-Adrenergic Inna Start: 09-12-2023 take 1 capsule by mouth once daily in the morning Tamsulosin 0.4 mg capsule Active 0.4 MG PO Every morning January 07, 2024 11:00pm Completed/Discontinued Medications Medication Drug Class(es) Dates Sig (Normalized) Sig (Original) amLODIPine 5 mg oral tablet (20 sources) Dihydropyridine Calcium Channel Inna Start: 02-02-2019 End: 09-02-2024 take 1 tablet by mouth once daily Amlodipine 5 mg tablet Discontinued 5 MG PO Daily 90 May 07, 2024 12:56pm September 02, 2024 4:09pm take 1 tablet by kamala th every twelve hours amLODIPine Besylate 5 MG 1 tablet Orally bid Active take 1 tablet by kamala th every twenty-four hours amLODIPine Besylate 10 MG 1 tablet Orall y Once a day Not-Taking/PRN benazepril hydrochloride 40 mg oral tablet (20 sources) Angiotensin Converting Enzyme Inhibitor Start: 08-27-2023 take 1 mg by mouth once daily benazepril 20 mg Tab mg tab(s), Oral, Daily, Refills(s) 0 Start Date: 08/27/23 Status: Ordered Start: 02-02-2019 End: 09-02-2024 Benazepril 40 mg tablet Disc ontinued 20 MG PO Daily 45 July 12, 2024 10:18am September 02, 2024 4:09pm Start: 02-02-2019 End: 10-14-2023 take 20 mg by mouth once daily Benazepril Active 20 MG PO Daily 45 October 14, 2023 4:02pm take 1 tablet [...] mo uth every week Ergocalciferol 1.25 MG (27194 UT) 1 capsule Orally Q week for [...] Chronic Chronic obstructive pulmonary disease and bronchiectasis (15 sources) Chronic bronchitis; Translations: [Unspecified chronic bronchitis] 01-06-2024 Chronic Deficiency and other anemia (7 sources) Anemia of renal disease; Translations: [Anemia in chronic kidney disease] Chronic Deficiency and other anemia (1 source) Anemia in chronic kidney disease Chronic Deficiency and other anemia (8 sources) Anemia, unspecified; Translations: [Anemia, unspecified] Episodic Deficiency and other anemia (8 sources) Anemia; Translations: [Anemia, unspecified] 01-08-2024 Episodic Disorders of lipid metabolism (20 sources) Hypercholesterolemia; Translations: [Pure hypercholesterolemia, unspecified] Chronic Esophageal disorders (10 sources) Gastroesophageal reflux disease; Translations: [Gastro-esophageal reflux [...] 2 Resolved: 2 Chronic Hyperplasia of prostate (17 sources) Lower urinary tract symptoms due to benign prostatic hypertrophy; Translations: [Benign prostatic hyperplasia with lower urinary tract symptoms] Onset: 7 Chronic Hypertension with complications and secondary hypertension (20 sources) Chronic kidney disease due to hypertension; Translations: [Hypertensive chronic kidney disease with stage 1 through stage 4 chronic kidney disease, or unspecified chronic kidney disease] Onset: 2 Resolved: 2 Chronic Nausea and vomiting (8 sources) Nausea and vomiting; Translations: [Nausea with vomiting, unspecified] 09-23-2023 Episodic Nephritis; nephrosis; renal sclerosis (20 sources) Nephrosclerosis; Translations: [Atrophy of kidney (terminal)] Onset: 2 Resolved: 2 Chronic Occlusion or stenosis of precerebral arteries (20 sources) Right carotid artery stenosis; Translations: [Occlusion and stenosis of right carotid artery] Onset: 5 08-22-2023 Chronic Comment on above: US: >70% DAMARIS (93% r ight bulb), <50% LICA - 07/2024 Other aftercare (1 source) Long-term current use of aspirin; Translations: [exterminator (current) use of aspirin] Onset: 4 Episodic Other circulatory disease (4 sources) Carotid bruit; Translations: [Other specified symptoms and signs involving the circulatory and respiratory systems] 08-26-2024 Episodic Other circulatory disease (4 sources) Other specified symptoms and signs involving [...] 2 Resolved: 2 Chronic Other gastrointestinal disorders (9 sources) Occult blood in stools; Translations: [Other fecal abnormalities] 07-09-2023 Episodic Comment on above: Problem List clean-u p per request of Phys. EHR Cmte Other nutritional; endocrine; and metabolic disorders (1 source) Abnormal weight loss Episodic Other screening for suspected conditions (not mental disorders or infectious disease) (12 sources) Encounter for screening for malignant neoplasm of prostate; Translations: [Patient encounter status] Episodic Residual codes; unclassified (4 sources) Tobacco user; Translations: [Tobacco use] Onset: 7 Episodic Residual codes; unclassified (1 source) Early satiety Episodic Residual codes; unclassified (8 sources) Early satiety; Translations: [Early satiety] 09-23-2023 [...] Test Name Value Interpretation Reference Range Facility CT soft tissue neck wo [facility] 09-03-2024 CT soft tissue neck wo [facility] [place] [address] CT Scan Report Signed Patient: Sabrina Guevara MR#: [id number] : 1955 Acct:[id number] Age/Sex: 69 / M ADM Date: 09/03/24 Loc: CT Room: Type: [facility] Attending Dr: Shirley Collins [address] MAINTENANCE TECHNICIANMicahC Copies to: Shirley Collins APRN Ordering Provider: Shirley Collins APRN Date of Service: 09/03/24 CT/CT head/brain wo con: I65.21 - Occlusion and stenosis of right carotid artery ([id number]) CT/CT soft tissue neck wo con: I65.21 - Occlusion and stenosis of right carotid artery CT head/brain wo con, CT soft tissue neck wo con 09/03/2024 9:58 AM SIGNS AND SYMPTOMS: I65.21 - Occlusion and stenosis of right carotid artery TECHNIQUE:Multi-detec tor CT axial slices of the brain and soft tissues of the neck were obtained without IV contrast. Sagittal and coronal reconstructions were performed. CT was performed with one or more of the following dose reduction techniques: Automated exposure control, adjustment of the mA and/or kV according to patient size, or use of iterative reconstruction technique. COMPARISON: None. FINDINGS: CT brain: There is no shift of the midline structures, acute intracranial bleeding, mass effects, or evidence of acute ischemia. There is age-related cortical atrophy. There is periventricular white matter hypoattenuation. Atherosclerotic changes are noted in the intracranial segments of the internal carotid arteries. The ventricular system is normal in size. The brainstem and the cerebellum are unremarkable. The visualized intraorbital contents, the visualized paranasal sinuses, and the infratemporal soft tissues show no acute abnormality. The osseous structures in the skull base and the calvarium show no abnormality. Soft tissue neck CT: Soft tissues of the orbits are within normal limits. The soft tissues of the infratemporal fossa fossa structures show no acute abnormality. Mucosal surfaces of the nasopharynx, oropharynx, hypopharynx, glottic, and subglottic airways are grossly unremarkable. The parotid glands, submandibular, and the thyroid gland are within normal limits. The carotid and jugular circulations are within normal limits. Mild emphysematous changes are present. No acute bony abnormalities are appreciated. Degenerative changes are noted in the cervical and thoracic spine. The skull base, craniocervical junction, atlantoaxial joints are within normal limits. The paranasal sinuses are within normal limits. CT/CT head/brain wo con IMPRESSION: No acute intracranial pathology. Chronic age-related neurodegenerative changes are noted as above. No evidence of mass or soft tissue swelling. Calcified plaque is noted in the carotid bifurcations. Stenosis cannot be accurately assessed on noncontrast studies. Impression dictated by: Dwaine Moreno M.D.09/03/2024 1:35 PM Dictation Location: [place] [address] Transcribed By: ARPIT 09/03/24 0634 Dictated By: Dwaine Moreno II, MD 09/03/24 1325 Signed By: 09/03/24 1337 Normal [facility] Laboratory - Chemistry and C hemistry - challengeon 09-03-2024 Free T4 [Mass/Vol] 0.70 ng/dL Low 0.76-1.46 [facility] TSH Qn 5.360 m[IU]/L High 0.358-3.740 [facility] Urate [Mass/Vol] 6.1 mg/dL 3.5-7.2 [facility] Basic Metabolic Panelon Anion gap [Moles/Vol] 6.2 mmol/L Normal 6.0-15.0 [facility] Comment on above: Performed By: #### B MP #### [address] Calcium [Mass/Vol] 8.5 mg/dL Low 8.6-10.3 [facility] Comment on above: Result Comment: PERF ORMED BY: [place] [address] PATHOLOGIST [employer] GARCÍA AZUL M.D. Performed By: #### B MP #### [place] [address] [place] Chloride [Moles/Vol] 97 mmol/L Low 98-107 [facility] Comment on above: Performed By: #### B MP #### [address] CO2 [Moles/Vol] 23.5 mmol/L Normal 21.0-31.0 [facility] Comment on above: Performed By: #### B MP #### [address] Creatinine [Mass/Vol] 2.16 mg/dL High 0.70-1.30 [facility] Comment on above: Performed By: #### B MP #### [address] Estimated GFR 32.739 mL/Min Normal [facility] Comment on above: Performed By: #### B MP #### [place] [address] [place] Glucose [Mass/Vol] 82 mg/dL Normal 70-100 [facility] Comment on above: Result Comment: [place] Glucose Reference Range is dependent on time and content of last meal. Glucose of more than 200 mg/dL in a nonstressed, ambulatory subject supports the diagnosis of Diabetes Mellitus. ADA recommended reference range Performed By: #### B MP #### [address] Potassium [Moles/Vol] 4.7 mmol/L Normal 3.5-5.1 [facility] Comment on above: Performed By: #### B MP #### [address] Sodium [Moles/Vol] 122 mmol/L Off scale low 136-145 [facility] Comment on above: Result Comment: Crit ical Result Called to and read back by: ONOFRE GRANDE at: 09/02/2024 17:42:57 by:[id number] Performed By: #### B MP #### [address] Urea nitrogen [Mass/Vol] 16 mg/dL Normal 7-25 [facility] Comment on above: Performed By: #### B MP #### [address] Basophils Auto (Bld) [#/Vol] Ordered By: Onofre Francis on 09-02-2024 Basophils (Bld) [#/Vol] Automated basoph il count 0.0-0.2 [facility] Basophils/100 WBC Auto (Bld) Ordered By: Onofre Francis on 09-02-2024 Basophils/100 WBC (Bld) Automated basophil % . [facility] Calcium [Mass/volume] in Ser um or PlasmaOrdered By: Onofre Francis on 09-02-2024 Calcium [Mass/Vol] Calcium [Mass/volume ] in Serum or Plasma Low 8.6-10.3 [facility] Carbon dioxide, total [Moles /volume] in Serum or PlasmaOrdered By: Onofre Francis on 09-02-2024 CO2 [Moles/Vol] Carbon dioxide, tota l [Moles/volume] in Serum or Plasma 21.0-31.0 [facility] Chloride [Moles/volume] in S iris or PlasmaOrdered By: Onofre Francis on 09-02-2024 Chloride [Moles/Vol] Chloride [Moles/volume] in Serum or Plasma Low 98-107 [facility] Complete Blood Count Auto Di ffon 09-02-2024 Basophils (Bld) [#/Vol] 0.1 10*3/uL Normal 0.0-0.2 [facility] Comment on above: Result Comment: PERF ORMED BY: [place] [address] PATHOLOGIST [employer] G[employer]ÍA AZUL M.D. Performed By: #### C BC #### [address] Basophils/100 WBC (Bld) 1.2 % Normal . [facility] Comment on above: Performed By: #### C BC #### [address] Eosinophils (Bld) [#/Vol] 0.7 10*3/uL High 0.0-0.45 [facility] Comment on above: Performed By: #### C BC #### [address] Eosinophils/100 WBC (Bld) 8.8 % Normal . [facility] Comment on above: Performed By: #### C BC #### [address] Erythrocyte distribution width (RBC) [Ratio] 13.6 % Normal 12.0-14.8 [facility] Comment on above: Performed By: #### C BC #### [address] Hematocrit (Bld) [Volume fraction] 36.8 % Low 38.8-50.0 [facility] Comment on above: Performed By: #### C BC #### [address] Hemoglobin (Bld) [Mass/Vol] 12.9 g/dL Low 13.0-17.0 [facility] Comment on above: Performed By: #### C BC #### [address] Lymphocytes (Bld) [#/Vol] 1.5 10*3/uL Normal 1.00-4.8 [facility] Comment on above: Performed By: #### C BC #### [address] Lymphocytes/100 WBC (Bld) 18.3 % Normal . [facility] Comment on above: Performed By: #### C BC #### [address] MCH (RBC) [Entitic mass] 33.4 pg Normal 27.5-35.2 [facility] Comment on above: Performed By: #### C BC #### [address] MCV (RBC) [Entitic vol] 95.4 fL Normal 83.5-101 [facility] Comment on above: Performed By: #### C BC #### [address] Mean Corpuscular HGB Conc 35.0 g/dL Normal 32.5-35.6 [facility] Comment on above: Performed By: #### C BC #### [address] Monocytes (Bld) [#/Vol] 0.6 10*3/uL Normal 0.0-0.8 [facility] Comment on above: Performed By: #### C BC #### [place] [address] [place] Monocytes/100 WBC (Bld) 7.6 % Normal . [facility] Comment on above: Performed By: #### C BC #### [address] Neutrophils (Bld) [#/Vol] 5.3 10*3/uL Normal 1.8-7.7 [facility] Comment on above: Performed By: #### C BC #### [place] [address] [place] Neutrophils/100 WBC (Bld) 64.1 % Normal . [facility] Comment on above: Performed By: #### C BC #### [address] NRBC% 0.0 /100{WBC} Normal 0-0.5 [facility] Comment on above: Performed By: #### C BC #### [address] Platelet mean volume (Bld) [Entitic vol] 7.4 fL Normal 6.6-10.1 [facility] Comment on above: Performed By: #### C BC #### [address] Platelets (Bld) [#/Vol] 226 10*3/uL Normal 150-450 [facility] Comment on above: Performed By: #### C BC #### [address] RBC (Bld) [#/Vol] 3.85 10*6/uL Low 3.90-5.60 [facility] Comment on above: Performed By: #### C BC #### [address] WBC (Bld) [#/Vol] 8.3 10*3/uL Normal 4.1-10.5 [facility] Comment on above: Performed By: #### C BC #### [place] [address] [place] Creatinine [Mass/volume] in Serum or PlasmaOrdered By: Onofre Francis on 09-02-2024 Creatinine [Mass/Vol] Creatinine [Mass/volume] in Serum or Plasma High 0.70-1.30 [facility] ECG 12 lead ECGon 09-02-2024 ECG 12 lead ECG [facility] Main [place] [address] [place] [address] Electrocardiograph Report Signed Patient: Sabrina Guevara MR#: [id number] : 1955 Acct:[id number] Age/Sex: 69 / M ADM Date: 09/02/24 Loc: PS Room: [facility] Attending Dr: Onofre Francis MD Ordering Provider: Onofre Francis MD Date of Service: 09/02/2401/20/1540 ECG/ECG 12 lead ECG: pst Copies to: Test Reason : Blood Pressure : */* mmHG Vent. Rate : 71 BPM Atrial Rate : 71 BPM P-R Int : 186 ms QRS Dur : 74 ms QT Int : 378 ms P-R-T Axes : 79 56 84 degrees QTcB Int : 410 ms Normal sinus rhythm Normal ECG No previous ECGs available Confirmed by IBETH HECTOR MD ([id number]) on 09/03/2024 3:25:49 PM Referred By: Electronically Signed By: IBETH HECTOR MD Transcribed By: MUS Signed By Ibeth Hector MD 0 09/03/24 1525 Normal [facility] Eosinophils Auto (Bld) [#/Vo l]Ordered By: Onofre Francis on 09-02-2024 Eosinophils (Bld) [#/Vol] Automated eosinophil count High 0.0-0.45 [facility] Eosinophils/100 WBC Auto (Bl d)Ordered By: Onofre Francis on 09-02-2024 Eosinophils/100 WBC (Bld) Automated eosinophil % . [facility] Erythrocyte distribution wid th Auto (RBC) [Ratio]Ordered By: Onofre Francis on 09-02-2024 Erythrocyte distribution width (RBC) [Ratio] Erythrocyte distribution width [Ratio] by Automated count 12.0-14.8 [facility] Glucose [Mass/volume] in Ser um or PlasmaOrdered By: Onofre Francis on 09-02-2024 Glucose [Mass/Vol] Glucose [Mass/volume ] in Serum or Plasma 70-100 [facility] Comment on above: ADA recommended refe rence rangeRandom Glucose Reference Range is dependent on time and content of last meal. Glucose of more than 200 mg/dL in a nonstressed, ambulatory subject supports the diagnosis of Diabetes Mellitus. Hematocrit Auto (Bld) [Volum e fraction]Ordered By: Onofre Francis on 09-02-2024 Hematocrit (Bld) [Volume fraction] Hematocrit [Volume Fraction] of Blood by Automated count Low 38.8-50.0 [facility] Hemoglobin [Mass/volume] in BloodOrdered By: Onofre Francis on 09-02-2024 Hemoglobin (Bld) [Mass/Vol] Hemoglobin [Mass/volume] in Blood Low 13.0-17.0 [facility] Leukocytes [#/volume] correc mitchell for nucleated erythrocytes in Blood by Automated counOrdered By: Onofre Francis on 09-02-2024 WBC corrected for nucl RBC Auto (Bld) [#/Vol] Leukocytes [#/volume] corrected for nucleated erythrocytes in Blood by Automated coun 4.1-10.5 [facility] Lymphocytes Auto (Bld) [#/Vo l]Ordered By: Onofre Francis on 09-02-2024 Lymphocytes (Bld) [#/Vol] Lymphocytes [#/volume] in Blood by Automated count 1.00-4.8 [facility] Lymphocytes/100 WBC Auto (Bl d)Ordered By: Onofre Francis on 09-02-2024 Lymphocytes/100 WBC (Bld) Lymphocytes/100 leukocytes in Blood by Automated count . [facility] MCH Auto (RBC) [Entitic mass ]Ordered By: Onofre Francis on 09-02-2024 MCH (RBC) [Entitic mass] MCH [Entitic ma ss] by Automated count 27.5-35.2 [facility] MCHC Auto (RBC) [Mass/Vol]Or dered By: Onofre Francis on 09-02-2024 MCHC (RBC) [Mass/Vol] MCHC [Mass/volume] by Automated count 32.5-35.6 [facility] MCV Auto (RBC) [Entitic vol] Ordered By: Onofre Francis on 09-02-2024 MCV (RBC) [Entitic vol] MCV [Entitic vol ume] by Automated count 83.5-101 [facility] Monocytes Auto (Bld) [#/Vol] Ordered By: Onofre Francis on 09-02-2024 Monocytes (Bld) [#/Vol] Automated blood monocyte count 0.0-0.8 [facility] Monocytes/100 WBC Auto (Bld) Ordered By: Onofre Francis on 09-02-2024 Monocytes/100 WBC (Bld) Automated monocyte % . [facility] Neutrophils Auto (Bld) [#/Vo l]Ordered By: Onofre Francis on 09-02-2024 Neutrophils (Bld) [#/Vol] Neutrophils [#/volume] in Blood by Automated count 1.8-7.7 [facility] Neutrophils/100 WBC Auto (Bl d)Ordered By: Onofre Francis on 09-02-2024 Neutrophils/100 WBC (Bld) Automated neutrophil % . [facility] No Panel InformationOrdered By: Onofre Francis on 09-02-2024 Estimated GFR (CKD-EPI) 32.739 mL/Min [facility] Pharmacy Creatinine Clearance (Chem N/A [facility] Nucleated erythrocytes [Pres ence] in Blood by Automated countOrdered By: Onofre Francis on 09-02-2024 Nucleated RBC Auto Ql (Bld) Nucleated erythrocytes [Presence] in Blood by Automated count 0-0.5 [facility] Platelet mean volume Auto (B ld) [Entitic vol]Ordered By: Onofre Francis on 09-02-2024 Platelet mean volume (Bld) [Entitic vol] Platelet mean volume [Entitic volume] in Blood by Automated count 6.6-10.1 [facility] Platelets Auto (Bld) [#/Vol] Ordered By: Onofre Francis on 09-02-2024 Platelets (Bld) [#/Vol] Platelets [#/vol ume] in Blood by Automated count 150-450 [facility] Potassium [Moles/volume] in Serum or PlasmaOrdered By: Onofre Francis on 09-02-2024 Potassium [Moles/Vol] Potassium [Moles/volume] in Serum or Plasma 3.5-5.1 [facility] RBC Auto (Bld) [#/Vol]Ordere d By: Onofre Francis on 09-02-2024 RBC (Bld) [#/Vol] Erythrocytes [#/volume] in Blood by Automated count Low 3.90-5.60 [facility] Serum or plasma anion gap de terminationOrdered By: Onofre Francis on 09-02-2024 Anion gap [Moles/Vol] Serum or plasma an ion gap determination 6.0-15.0 [facility] Sodium [Moles/volume] in Ser um or PlasmaOrdered By: Onofre Francis on 09-02-2024 Sodium [Moles/Vol] Sodium [Moles/volume ] in Serum or Plasma Critically low 136-145 [facility] Comment on above: Critical Result Call ed to and read back by: ONORFE GRANDE at: 09/02/2024 17:42:57 by:[id number] Urea nitrogen [Mass/volume] in Serum or PlasmaOrdered By: Onofre Francis on 09-02-2024 Urea nitrogen [Mass/Vol] Urea nitrogen [Mass/volume] in Serum or Plasma 02-18 [facility] WBC Auto (Bld) [#/Vol]Ordere d By: Onofre Francis on 09-02-2024 WBC (Bld) [#/Vol] Leukocytes [#/volume ] in Blood by Automated count 4.1-10.5 [facility] Blood Urea Nitrogenon 2024 Urea nitrogen [Mass/Vol] 14 mg/dL Normal 02-18 [facility] Comment on above: Performed By: #### B UN, CREAT #### [facility] [address] [place] [address] [place] Creatinineon 08-30-2024 Creatinine [Mass/Vol] 2.19 mg/dL High 0.70-1.30 [facility] Comment on above: Performed By: #### B UN, CREAT #### [facility] [address] [place] [address] [place] Creatinine Clr Calc Pharmacy 33.60 Normal [facility] Comment on above: Result Comment: PERF ORMED BY: [place] [address] PATHOLOGIST [employer] GARCÍA AZUL M.D. Performed By: #### B UN, CREAT #### [address] Estimated GFR 32.202 mL/Min Normal [facility] Comment on above: Performed By: #### B UN, CREAT #### [facility] [address] [id number] [facility] Creatinine [Mass/volume] in Serum or PlasmaOrdered By: Onofre Francis on 08-30-2024 Creatinine [Mass/Vol] Creatinine [Mass/volume] in Serum or Plasma High 0.70-1.30 [facility] No Panel InformationOrdered By: Onofre Francis on 08-30-2024 Estimated GFR (CKD-EPI) 32.202 mL/Min [facility] Creatinine Clearance (Chem 33.60 [facility] Urea nitrogen [Mass/volume] in Serum or PlasmaOrdered By: Onofre Francis on 08-30-2024 Urea nitrogen [Mass/Vol] Urea nitrogen [Mass/volume] in Serum or Plasma 7 [facility] Basophils Auto (Bld) [#/Vol] on 07-07-2024 Basophils (Bld) [#/Vol] Automated basoph il count 0.0-0.1 [facility] Basophils/100 WBC Auto (Bld) on 07-07-2024 Basophils/100 WBC (Bld) Automated basophil % 0. 2-2.0 [facility] Cholesterol in LDL Calc [Mas s/Vol]on 07-07-2024 Cholesterol in LDL [Mass/Vol] Cholesterol in LDL [Mass/volume] in Serum or Plasma by calculation [facility] Comment on above: <100 mg/dl [id number] 0-129 mg/dl NEAR OR ABOVE [id number] mg/dl BORDERLINE [id number] mg/dl HIGH>190 mg/dl VERY HIGH Cholesterol in VLDL Calc [Ma ss/Vol]on 07-07-2024 Cholesterol in VLDL [Mass/Vol] Cholesterol in VLDL [Mass/volume] in Serum or Plasma by calculation [facility] Eosinophils/100 WBC Auto (Bl d)on 07-07-2024 Eosinophils/100 WBC (Bld) Automated eosinophil % High 0.9-7.0 [facility] Erythrocyte distribution wid th Auto (RBC) [Ratio]on 07-07-2024 Erythrocyte distribution width (RBC) [Ratio] Erythrocyte distribution width [Ratio] by Automated count 11.0-15.0 [facility] Estimated glomerular filtrat ion rate (GFR) non- Americanon 07-07-2024 GFR/1.73 sq M.predicted among non-blacks MDRD (S/P/Bld) [Vol rate/Area] Estimated glomerular filtration rate (GFR) non- Low >=60 mL/min/1.73m 2 [facility] Globulin Calc (S) [Mass/Vol] on 07-07-2024 Globulin (S) [Mass/Vol] Serum globulin measurement by calculation (mass/volume) [facility] Hematocrit Auto (Bld) [Volum e fraction]on 07-07-2024 Hematocrit (Bld) [Volume fraction] Hematocrit [Volume Fraction] of Blood by Automated count Low 42.0-54.0 [facility] Hemoglobin [Mass/volume] in Bloodon 07-07-2024 Hemoglobin (Bld) [Mass/Vol] Hemoglobin [Mass/volume] in Blood Low 14.0-18.0 [facility] Laboratory - Chemistry and C hemistry - challengeon 07-07-2024 Albumin [Mass/Vol] 3.5 g/dL 3.4-5.0 [facility] ALP [Catalytic activity/Vol] 68 U/L 46-116 [facility] ALT [Catalytic activity/Vol] 19 U/L 16-63 [facility] AST [Catalytic activity/Vol] 22 U/L 15-37 [facility] Bilirubin [Mass/Vol] 0.5 mg/dL 0.2-1.0 [facility] Calcium [Mass/Vol] 8.6 mg/dL 8.5-10.1 [facility] Chloride [Moles/Vol] 90 mmol/L Low 98-107 [facility] Cholesterol [Mass/Vol] 114 mg/dL <=200 [facility] Cholesterol in HDL [Mass/Vol] 34 mg/dL Low 40-60 [facility] Comment on above: > or =60 mg/dl - LOW CARDIOVASCULAR RISK<40 mg/dl - HIGH CARDIOVASCULAR RISK CO2 [Moles/Vol] 25.0 mmol/L 21.0-32.0 [facility] Creatinine [Mass/Vol] 2.52 mg/dL High 0.70-1.30 [facility] GFR/1.73 sq M.predicted MDRD (S/P/Bld) [Vol rate/Area] 31 mL/min/{1.73_m2} Low >=60 mL/min/1.73m 2 [facility] Glucose [Mass/Vol] 89 mg/dL 74-106 [facility] Potassium [Moles/Vol] 4.8 mmol/L 3.5-5.1 [facility] Protein [Mass/Vol] 7.0 g/dL 6.4-8.2 [facility] Sodium [Moles/Vol] 122 mmol/L Critically low 136-145 [facility] Comment on above: RESULTS CALLED TO LENO MCKNIGHT RMA Triglyceride [Mass/Vol] 119 mg/dL <=150 [facility] Urea nitrogen [Mass/Vol] 18.0 mg/dL 7.0-18.0 [facility] Urea nitrogen/Creatinine [Mass ratio] 7.1 mg/mg [facility] Laboratory - Hematology and Cell countson 07-07-2024 Immature granulocytes/100 WBC (Bld) 0.4 % 0.0-0.5 [facility] Leukocytes [#/volume] correc mitchell for nucleated erythrocytes in Blood by Automated counon 07-07-2024 WBC corrected for nucl RBC Auto (Bld) [#/Vol] Leukocytes [#/volume] corrected for nucleated erythrocytes in Blood by Automated coun 4.0-11.0 [facility] Lymphocytes Auto (Bld) [#/Vo l]on 07-07-2024 Lymphocytes (Bld) [#/Vol] Lymphocytes [#/volume] in Blood by Automated count 1.2-3.8 [facility] Lymphocytes/100 WBC Auto (Bl d)on 07-07-2024 Lymphocytes/100 WBC (Bld) Lymphocytes/100 leukocytes in Blood by Automated count Low 20.5-60.0 [facility] MCH Auto (RBC) [Entitic mass ]on 07-07-2024 MCH (RBC) [Entitic mass] MCH [Entitic ma ss] by Automated count 25.9-34.0 [facility] MCHC Auto (RBC) [Mass/Vol]on 07-07-2024 MCHC (RBC) [Mass/Vol] MCHC [Mass/volume] by Automated count High 29.9-35.2 [facility] MCV Auto (RBC) [Entitic vol] on 07-07-2024 MCV (RBC) [Entitic vol] MCV [Entitic vol ume] by Automated count 80.0-94.0 [facility] Monocytes Auto (Bld) [#/Vol] on 07-07-2024 Monocytes (Bld) [#/Vol] Automated blood monocyte count 0.3-0.8 [facility] Monocytes/100 WBC Auto (Bld) on 07-07-2024 Monocytes/100 WBC (Bld) Automated monocyte % 1. 7-12.0 [facility] Neutrophils Auto (Bld) [#/Vo l]on 07-07-2024 Neutrophils (Bld) [#/Vol] Neutrophils [#/volume] in Blood by Automated count 1.4-6.5 [facility] Neutrophils/100 WBC Auto (Bl d)on 07-07-2024 Neutrophils/100 WBC (Bld) Automated neutrophil % 43.0-75.0 [facility] No Panel Informationon 07-07 Eosinophils # (Auto) 0.8 10 3/uL High 0.0-0.7 [facility] Immature Granulocyte # (Auto) 0.03 10 3/uL 0.00-0.03 [facility] Prostate Specific Antigen Screen 0.82 ng/mL <=4.00 [facility] Platelet mean volume Auto (B ld) [Entitic vol]on 07-07-2024 Platelet mean volume (Bld) [Entitic vol] Platelet mean volume [Entitic volume] in Blood by Automated count Low 9.5-13.5 [facility] Platelets Auto (Bld) [#/Vol] on 07-07-2024 Platelets (Bld) [#/Vol] Platelets [#/vol ume] in Blood by Automated count 150-450 [facility] RBC Auto (Bld) [#/Vol]on RBC (Bld) [#/Vol] Erythrocytes [#/volume] in Blood by Automated count Low 4.70-6.10 [facility] Serum or plasma albumin/glob ulin mass ratioon 07-07-2024 Albumin/Globulin [Mass ratio] Serum or plasma albumin/globulin mass ratio [facility] Serum or plasma anion gap de terminationon 07-07-2024 Anion gap [Moles/Vol] Serum or plasma an ion gap determination [facility] Serum or plasma total choles terol/high density lipoprotein (HDL) cholesterol mass edith 07-07-2024 Cholesterol.total/Choles terol in HDL [Mass ratio] Serum or plasma total cholesterol/high density lipoprotein (HDL) cholesterol mass rat [facility] Comment on above: 3.3 - 4.4 LOW RISK4. 4 - 7.1 AVERAGE RISK7.1 - 11.0 MODERATE RISK>11.0 HIGH RISK Erythrocyte distribution wid th Auto (RBC) [Ratio]on 05-17-2024 Erythrocyte distribution width (RBC) [Ratio] 12.5 % 11.0-15.0 [facility] Estimated glomerular filtrat ion rate (GFR) non- Americanon 05-17-2024 GFR/1.73 sq M.predicted among non-blacks MDRD (S/P/Bld) [Vol rate/Area] 27 mL/min/{1.73_m2} Low >=60 mL/min/1.73m 2 [facility] Hematocrit Auto (Bld) [Volum e fraction]on 05-17-2024 Hematocrit (Bld) [Volume fraction] 36.5 % Low 42.0-54.0 [facility] Hemoglobin [Mass/volume] in Bloodon 05-17-2024 Hemoglobin (Bld) [Mass/Vol] 13.0 g/dL Low 14.0-18.0 [facility] Iron binding capacity [Mass/ volume] in Serum or Plasmaon 05-17-2024 Iron binding capacity [Mass/Vol] 177.0 ug/dL Low 250.0-450.0 [facility] Iron saturation [Mass Fracti on] in Serum or Plasmaon 05-17-2024 Iron saturation [Mass fraction] 35.0 % [facility] Laboratory - Chemistry and C hemistry - challengeon 05-17-2024 Albumin [Mass/Vol] 3.2 g/dL Low 3.4-5.0 [facility] Calcium [Mass/Vol] 8.4 mg/dL Low 8.5-10.1 [facility] Chloride [Moles/Vol] 93 mmol/L Low 98-107 [facility] CO2 [Moles/Vol] 24.1 mmol/L 21.0-32.0 [facility] Creatinine [Mass/Vol] 2.43 mg/dL High 0.70-1.30 [facility] Ferritin [Mass/Vol] 297.0 ng/mL 26.0-388.0 [facility] GFR/1.73 sq M.predicted MDRD (S/P/Bld) [Vol rate/Area] 33 mL/min/{1.73_m2} Low >=60 mL/min/1.73m 2 [facility] Glucose [Mass/Vol] 95 mg/dL 74-106 [facility] Iron [Mass/Vol] 62.0 ug/dL Low 65.0-175.0 [facility] Magnesium [Mass/Vol] 2.0 mg/dL 1.8-2.4 [facility] Potassium [Moles/Vol] 4.7 mmol/L 3.5-5.1 [facility] Sodium [Moles/Vol] 128 mmol/L Low 136-145 [facility] Urate [Mass/Vol] 5.6 mg/dL 3.5-7.2 [facility] Urea nitrogen [Mass/Vol] 17.0 mg/dL 7.0-18.0 [facility] Urea nitrogen/Creatinine [Mass ratio] 7.0 mg/mg [facility] Bilirubin Ql (U) Negative NEGATIVE [facility] Glucose (U) [Mass/Vol] Negative NEGATIVE [facility] Ketones Ql (U) Negative NEGATIVE [facility] pH (U) 6.0 [pH] 5.0-9.0 [facility] Specific gravity (U) [Rel density] <=1.005 Abnormal 1.005-1.025 [facility] Urobilinogen Qn (U) 0.2 {Edgar'U}/dL 0.2-1.0 [facility] Laboratory - Specimen inform ationon 05-17-2024 Appearance (U) CLEAR CLEAR [facility] Color (U) LT. YELLOW YELLOW [facility] Laboratory - Urinalysison Leukocyte esterase Test strip Ql (U) Negative NEGATIVE [facility] Mucus Ql (Urine sed) NONE SEEN NONE SEEN [facility] Nitrite Ql (U) Negative NEGATIVE [facility] Protein (U) [Mass/Vol] 14.8 mg/dL High <=11.9 [facility] Protein Ql (U) Negative NEG/TRACE [facility] Leukocytes [#/volume] correc mitchell for nucleated erythrocytes in Blood by Automated counon 05-17-2024 WBC corrected for nucl RBC Auto (Bld) [#/Vol] 8.6 10 3/uL 4.0-11.0 [facility] MCH Auto (RBC) [Entitic mass ]on 05-17-2024 MCH (RBC) [Entitic mass] 33.2 pg 25.9-34.0 [facility] MCHC Auto (RBC) [Mass/Vol]on 05-17-2024 MCHC (RBC) [Mass/Vol] 35.6 g/dL High 29.9-35.[address] [facility] MCV Auto (RBC) [Entitic vol] on 05-17-2024 MCV (RBC) [Entitic vol] 93.1 fL 80.0-94.0 [facility] No Panel Informationon 05-17 25-Hydroxy Vitamin D Total 81.1 ng/mL [facility] Comment on above: <20 ng/mL Vit D defi cient20-<30 ng/mL Vit D -496 ng/mL Vit D sufficient>100 ng/mL Potential Toxicity Parathyroid Hormone (Intact) 51 pg/mL 15-65 [facility] Comment on above: Performed at: [employer] [facility] [address] [id number] Director: Yakov Sheikh PhD, Phone: [phone] Phosphorus Level 3.4 mg/dL 2.6-4.7 [facility] Urine Bacteria TRACE #/HPF Abnormal NONE SEEN [facility] Urine Culture Reflexed NO [facility] Urine Occult Blood Negative NEGATIVE [facility] Urine Other Casts NONE SEEN #/LPF NONE SEEN [facility] Urine Other Crystals None Seen #/HPF None Seen [facility] Urine Random Creatinine 40.25 mg/dL 20.00-300.0 0 [facility] Urine RBC NONE SEEN #/HPF 0-2 [facility] Urine Squamous Epithelial Cells RARE #/LPF NONE/RARE [facility] Urine WBC NONE SEEN #/HPF NONE SEEN [facility] Platelet mean volume Auto (B ld) [Entitic vol]on 05-17-2024 Platelet mean volume (Bld) [Entitic vol] 9.1 fL Low 9.5-13.5 [facility] Platelets Auto (Bld) [#/Vol] on 05-17-2024 Platelets (Bld) [#/Vol] 283 10 3/uL 150-450 [facility] RBC Auto (Bld) [#/Vol]on RBC (Bld) [#/Vol] 3.92 10 6/uL Low 4.70-6.10 [facility] Serum or plasma anion gap de terminationon 05-17-2024 Anion gap [Moles/Vol] 15.6 mmol[facility] protein/creatinine rat ioon 05-17-2024 Protein/Creatinine (U) [Ratio] 0.37 [facility] Erythrocyte distribution wid th Auto (RBC) [Ratio]on 01-05-2024 Erythrocyte distribution width (RBC) [Ratio] 12.3 % 11.0-15.0 [facility] Estimated glomerular filtrat ion rate (GFR) non- Americanon 01-05-2024 GFR/1.73 sq M.predicted among non-blacks MDRD (S/P/Bld) [Vol rate/Area] 26 mL/min/{1.73_m2} >=60 [facility] Hematocrit Auto (Bld) [Volum e fraction]on 01-05-2024 Hematocrit (Bld) [Volume fraction] 34.2 % 42.0-54.0 [facility] Hemoglobin [Mass/volume] in Bloodon 01-05-2024 Hemoglobin (Bld) [Mass/Vol] 12.3 g/dL 14.0-18.0 [facility] Laboratory - Chemistry and C hemistry - challengeon 01-05-2024 Albumin [Mass/Vol] 3.9 g/dL 3.4-5.0 [facility] Calcium [Mass/Vol] 8.9 mg/dL 8.5-10.1 [facility] Chloride [Moles/Vol] 91 mmol/L 98-107 [facility] CO2 [Moles/Vol] 24.4 mmol/L 21.0-32.0 [facility] Creatinine [Mass/Vol] 2.46 mg/dL 0.70-1.30 [facility] Ferritin [Mass/Vol] 275.0 ng/mL 26.0-388.0 [facility] GFR/1.73 sq M.predicted MDRD (S/P/Bld) [Vol rate/Area] 32 mL/min/{1.73_m2} >=60 [facility] Glucose [Mass/Vol] 67 mg/dL 74-106 [facility] Magnesium [Mass/Vol] 2.0 mg/dL 1.8-2.4 [facility] Potassium [Moles/Vol] 4.9 mmol/L 3.5-5.1 [facility] Sodium [Moles/Vol] 124 mmol/L 136-145 [facility] Comment on above: RESULTS CALLED TO ANABELL VILLANUEVA CALLED TO []@BY Gil Stevenson MLT at 1636 Urate [Mass/Vol] 6.8 mg/dL 3.5-7.2 [facility] Urea nitrogen [Mass/Vol] 21.0 mg/dL 7.0-18.0 [facility] Urea nitrogen/Creatinine [Mass ratio] 8.5 mg/mg [facility] Bilirubin Ql (U) Negative NEGATIVE [facility] Glucose (U) [Mass/Vol] Negative NEGATIVE [facility] Ketones Ql (U) Negative NEGATIVE [facility] pH (U) 6.0 [pH] 5.0-9.0 [facility] Specific gravity (U) [Rel density] <=1.005 1.005-1.025 [facility] Urobilinogen Qn (U) 1.0 {Edgar'U}/dL 0.2-1.0 [facility] Laboratory - Specimen inform ationon 01-05-2024 Appearance (U) CLEAR CLEAR [facility] Color (U) LT. YELLOW YELLOW [facility] Laboratory - Urinalysison Leukocyte esterase Test strip Ql (U) Negative NEGATIVE [facility] Mucus Ql (Urine sed) NONE SEEN NONE SEEN [facility] Nitrite Ql (U) Negative NEGATIVE [facility] Protein (U) [Mass/Vol] 13.4 mg/dL <=11.9 [facility] Protein Ql (U) Negative NEG/TRACE [facility] Leukocytes [#/volume] correc mitchell for nucleated erythrocytes in Blood by Automated counon 01-05-2024 WBC corrected for nucl RBC Auto (Bld) [#/Vol] 7.8 10 3/uL 4.0-11.0 [facility] MCH Auto (RBC) [Entitic mass ]on 01-05-2024 MCH (RBC) [Entitic mass] 33.1 pg 25.9-34.0 [facility] MCHC Auto (RBC) [Mass/Vol]on 01-05-2024 MCHC (RBC) [Mass/Vol] 36.0 g/dL 29.9-35.[address] [facility] MCV Auto (RBC) [Entitic vol] on 01-05-2024 MCV (RBC) [Entitic vol] 91.9 fL 80.0-94.0 [facility] No Panel Informationon 01-04 25-Hydroxy Vitamin D Total 77.4 ng/mL [facility] Comment on above: <20 ng/mL Vit D defi cient20-<30 ng/mL Vit D yuhdzjdfgiin45-192 ng/mL Vit D sufficient>100 ng/mL Potential Toxicity Parathyroid Hormone (Intact) 43 pg/mL 15-65 [facility] Comment on above: Performed at: [facility] [address] [id number] Director: Yakov Sheikh PhD, Phone: [phone] Phosphorus Level 3.3 mg/dL 2.6-4.7 [facility] Urine Bacteria NONE SEEN #/HPF NONE SEEN [facility] Urine Occult Blood Negative NEGATIVE [facility] Urine Other Casts NONE SEEN #/LPF NONE SEEN [facility] Urine Other Crystals None Seen #/HPF None Seen [facility] Urine Random Creatinine 52.39 mg/dL 20.00-300.0 0 [facility] Urine RBC 0-2 #/HPF 0-2 [facility] Urine Squamous Epithelial Cells NONE SEEN #/LPF NONE/RARE [facility] Urine WBC 0-2 #/HPF NONE SEEN [facility] Platelet mean volume Auto (B ld) [Entitic vol]on 01-05-2024 Platelet mean volume (Bld) [Entitic vol] 9.3 fL 9.5-13.5 [facility] Platelets Auto (Bld) [#/Vol] on 01-05-2024 Platelets (Bld) [#/Vol] 211 10 3/uL 150-450 [facility] RBC Auto (Bld) [#/Vol]on RBC (Bld) [#/Vol] 3.72 10 6/uL 4.70-6.10 [facility] Serum or plasma anion gap de terminationon 01-05-2024 Anion gap [Moles/Vol] 13.5 mmol/L [facility] Urine protein/creatinine rat ioon 01-05-2024 Protein/Creatinine (U) [Ratio] 0.26 [facility] Consent for Procedure/Surger yon 09-15-2023 Consent for Procedure/Surgery [id number] .00TIFF Normal [facility] Ambulatory Visit Summaryon 0 09-12-2023 [...] BRIDGES, Ada Morris Where: [facility] Urology Office/Clinic Noteon 09-12-2023 Urology Office/Clinic Note [...] disorders of bladder) CT AP wo Con @TB 08/04/23 - right urinary bladder wall thickening [...] urothelial ca. 7. 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 [1] Follow-up With When Contact Information Rodger BRIDGES, Ada Morris, URL, [facility], [place] [phone] Additional Instructions: 6 mos (new med) Patient Education Cystoscopy I, Humera Jones, personally scribed for Dr. Soares on 09/12/2023 08:09:10. . Documentation recorded by the scribeHumera, accurately reflects the services(s) I performed and decisions made by me. Authenticated by Dr. Soares (more content not included)... [facility] Comment on above: Result Comment: Elec tronically Signed By: Ada Soares MD\.br\Date and Time Signed: 09/12/23 08:18 EST\.br\Electronically Co-Signed By: Humera Jones\.br\Date and Time Co-Signed: 09/12/23 08:09 EST Physician Referralon 024 Physician Referral [id number] .00TIFF [facility] Screenson 09-02-2023 Screens [id number]# 1.00TIFF [facility] Screens [id number]# 1.00TIFF [facility] Ambulatory Visit Summaryon 0 08-27-2023 [...] including vitamins, herbs, eye drops, creams, and oqrr-olp-gszmhvt medicines. ? Any problems you or family [...] tells you to take them. ? Taking jhqt-gxd-onabswz medicines, vitamins, herbs, and supplements. Tests You may have an exam or testing, such as: ? X-rays of the bladder, urethra, or kidneys. ? CT scan of the abdome (more content not included)... Normal [facility] Patient Educationon 08-27-19 Patient Education Nephrology Dietary [...] Spinach (cooked), rhubarb, beets, sweet potatoes, and Trinid[place] chard. ? Peanuts. ? Potato chips, montenegrin fries, and baked potatoes with skin on. ? Nuts and nut products. ? Chocolate. ? If you regularly take a diuretic medicine, make sure to eat at least 1 or 2 servings of fruits or vegetables that are high in potassium each day. These include: ? Avocado. ? Banana. ? [place], prune, carrot, or tomato juice. ? Baked [...] fish oil, or vitamin B6. ? Take ggag-tne-wefgfjb and prescription medicines only as told by your health care provider. These include supplements. What foods sh (more content not included)... Normal [facility] Amphetamine Screen Ql (U)Ord ered By: Sixto Dobson on 08-05-2023 Amphetamines Ql (U) Negative Negative [facility] Barbiturates [Presence] in U rine by Screen methodOrdered By: Sixto Dobson on 08-05-2023 Barbiturates Screen Ql (U) Negative Negative [facility] Benzodiazepines Screen Ql (U )Ordered By: Sixto Dobson on 08-05-2023 Benzodiazepines Ql (U) Negative Negative [facility] Benzoylecgonine [Presence] i n Urine by Screen methodOrdered By: Sixto Dobson on 08-05-2023 Benzoylecgonine Screen Ql (U) Negative Negative [facility] Cannabinoids [Presence] in U rine by Screen methodOrdered By: Sixto Dobson on 08-05-2023 Cannabinoids Screen Ql (U) Positive Negative [facility] Comment on above: These are unconfirme d results and should not be used for legal purposes. Drug Cut-Off Concentration: AMPH 1000 ng/mL NORMA 200 ng/mL LUIS 200 ng/mL COCM 300 ng/mL OP 300 ng/mL PCP 25 ng/mL THC 20 ng/mL Opiates [Presence] in Urine by Screen methodOrdered By: Sixto Dobson on 08-05-2023 Opiates Screen Ql (U) Negative Negative [facility] Phencyclidine Screen Ql (U)O rdered By: Sixto Dobson on 08-05-2023 Phencyclidine Ql (U) Negative Negative [facility] CT LUNG CANCER SCREENINGon 0 12-08-2021 [...] by: ADELINA BISHOP Date: 2021-12-08 11:[address] [facility] Vital Signs Date Time Vital Sign Value Performing Clinician Facility 09-01-2024 10: Body height 182.88 cm [facility] Work Phone: [facility] 09-01-2024 10: Body mass index (BMI) [Ratio] 21.7 kg/m2 [facility] Work Phone: [facility] 09-01-2024 10: Body temperature 98.4 [degF] [facility] Work Phone: [facility] 09-01-2024 10: Body weight 72.57 kg [facility] Work Phone: [facility] 09-01-2024 10:13-0500 Diastolic blood pressure 58 mm[Hg] Jeremy Ball DO Work Phone: [facility] 09-01-2024 10:13-0500 Heart rate 90 /min Jeremy Ball DO Work Phone: [facility] 09-01-2024 10:13-0500 SaO2% (BldA) [Mass fraction] 98 % Jeremy Ball DO Work Phone: [facility] 09-01-2024 10:13-0500 Systolic blood pressure 110 mm[Hg] Jeremy Ball DO Work Phone: [facility] 08-30-2024 12:48-0500 Diastolic blood pressure 76 mm[Hg] Jeremy Ball DO Work Phone: [facility] 08-30-2024 12:48-0500 Heart rate 58 /min Jeremy Ball DO Work Phone: [facility] 08-30-2024 12:48-0500 Respiratory rate 16 /min Jeremy Ball DO Work Phone: [facility] 08-30-2024 12:48-0500 SaO2% (BldA) [Mass fraction] 99 % Jeremy Ball DO Work Phone: [facility] 08-30-2024 12:48-0500 Systolic blood pressure 136 mm[Hg] Jeremy Ball DO Work Phone: [facility] 08-30-2024 12:18-0500 Inhaled oxygen flow rate 3 L/min Jeremy Ball DO Work Phone: [facility] 08-30-2024 09:14-0500 Body height 182.88 cm Jeremy Ball DO Work Phone: [facility] 08-30-2024 09:14-0500 Body weight 72.57 kg Jeremy Ball DO Work Phone: [facility] 08-26-2024 11:11-0500 Body height 182.88 cm [facility] 08-26-2024 11:11-0500 Body mass index (BMI) [Ratio] 21.7 kg/m2 [facility] 08-26-2024 11:11-0500 Body temperature 97.8 [degF] [facility] 08-26-2024 11:11-0500 Body weight 72.57 kg [facility] 08-26-2024 11:11-0500 Diastolic blood pressure 68 mm[Hg] [facility] 08-26-2024 11:11-0500 Heart rate 63 /min [facility] 08-26-2024 11:11-0500 Respiratory rate 16 /min [facility] 08-26-2024 11:11-0500 SaO2% (BldA) [Mass fraction] 97 % [facility] 08-26-2024 11:11-0500 Systolic blood pressure 116 mm[Hg] [facility] 07-12-2024 10:04-0500 Body height 182.88 cm [facility] 07-12-2024 10:04-0500 Body mass index (BMI) [Ratio] 22.1 kg/m2 [facility] 07-12-2024 10:04-0500 Body weight 74.16 kg [facility] 07-12-2024 10:04-0500 Diastolic blood pressure 70 mm[Hg] [facility] 07-12-2024 10:04-0500 Heart rate 84 /min [facility] 07-12-2024 10:04-0500 Respiratory rate 12 /min [facility] 07-12-2024 10:04-0500 Systolic blood pressure 122 mm[Hg] [facility] 05-20-2024 11:09-0400 Body height 182.88 cm [facility] 05-20-2024 11:09-0400 Body mass index (BMI) [Ratio] 21.2 kg/m2 [facility] 05-20-2024 11:09-0400 Body temperature 98.1 [degF] [facility] 05-20-2024 11:09-0400 Body weight 70.98 kg [facility] 05-20-2024 11:09-0400 Diastolic blood pressure 66 mm[Hg] [facility] 05-20-2024 11:09-0400 Heart rate 76 /min [facility] 05-20-2024 11:09-0400 Respiratory rate 18 /min [facility] 05-20-2024 11:09-0400 SaO2% (BldA) [Mass fraction] 99 % [facility] 05-20-2024 11:09-0400 Systolic blood pressure 116 mm[Hg] [facility] 01-15-2024 13:04-0400 Body height 182.88 cm [facility] 01-15-2024 13:04-0400 Body mass index (BMI) [Ratio] 21.5 kg/m2 [facility] 01-15-2024 13:04-0400 Body temperature 98.3 [degF] [facility] 01-15-2024 13:04-0400 Body weight 72.12 kg [facility] 01-15-2024 13:04-0400 Diastolic blood pressure 60 mm[Hg] [facility] 01-15-2024 13:04-0400 Heart rate 78 /min [facility] 01-15-2024 13:04-0400 Respiratory rate 16 /min [facility] 01-15-2024 13:04-0400 SaO2% (BldA) [Mass fraction] 96 % [facility] 01-15-2024 13:04-0400 Systolic blood pressure 132 mm[Hg] [facility] 01-08-2024 10:12-0400 Body height 182.88 cm [facility] 01-08-2024 10:12-0400 Body mass index (BMI) [Ratio] 21.2 kg/m2 [facility] 01-08-2024 10:12-0400 Body weight 70.87 kg [facility] 01-08-2024 10:12-0400 Diastolic blood pressure 69 mm[Hg] [facility] 01-08-2024 10:12-0400 Heart rate 66 /min [facility] 01-08-2024 10:12-0400 Respiratory rate 12 /min [facility] 01-08-2024 10:12-0400 Systolic blood pressure 127 mm[Hg] [facility] 08-05-2023 15:44-0500 Diastolic blood pressure 82 mm[Hg] DO Jeremy Ball Work Phone: [facility] 08-05-2023 15:44-0500 Heart rate 78 /min DO Jeremy Ball Work Phone: [facility] 08-05-2023 15:44-0500 Respiratory rate 16 /min DO Jeremy Ball Work Phone: [facility] 08-05-2023 15:44-0500 SaO2% (BldA) [Mass fraction] 97 % DO Jeremy Ball Work Phone: [facility] 08-05-2023 15:44-0500 Systolic blood pressure 157 mm[Hg] DO Jeremy Ball Work Phone: [facility] 08-05-2023 13:26-0500 Body height 182.88 cm DO Jeremy Ball Work Phone: [facility] 08-05-2023 13:26-0500 Body weight 68.03 kg DO Jeremy Ball Work Phone: [facility] 07-24-2023 12:40-0500 Body height 182.88 cm Young Yash Other [facility] Other 07-24-2023 12:40-0500 Body mass index (BMI) [Ratio] 21.83 kg/m2 Young Yash Other [facility] 07-24-2023 12:40-0500 Body temperature 98.6 [degF] Young Yash Other [facility] 07-24-2023 12:40-0500 Body weight 73.03 kg Young Yash Other [facility] Other 07-24-2023 12:40-0500 Diastolic blood pressure 62 mm[Hg] Young Yash Other [facility] Other 07-24-2023 12:40-0500 Respiratory rate 16 /min Young Yash Other [facility] Other 07-24-2023 12:40-0500 SaO2% (BldA) [Mass fraction] 100 % Young Yash Other [facility] Other 07-24-2023 12:40-0500 Systolic blood pressure 130 mm[Hg] Young Yash Other [facility] Other 07-09-2023 10:30-0500 Body height 182.88 cm Jeremy Ball Other [facility] Other 07-09-2023 10:30-0500 Body mass index (BMI) [Ratio] 21.13 kg/m2 Jeremy Ball Other [facility] Other 07-09-2023 10:30-0500 Body weight 70.67 kg Jeremy Ball Other [facility] Other 07-09-2023 10:30-0500 Diastolic blood pressure 69 mm[Hg] Jeremy Ball Other [facility] Other 07-09-2023 10:30-0500 Respiratory rate 12 /min Jeremy Ball Other [facility] Other 07-09-2023 10:30-0500 Systolic blood pressure 131 mm[Hg] Jeremy Ball Other [facility] Other 01-29-2023 13:30-0400 Body height 182.88 cm Jeremy Ball Other [facility] Other 01-29-2023 13:30-0400 Body mass index (BMI) [Ratio] 22.32 kg/m2 Jeremy Ball Other [facility] Other 01-29-2023 13:30-0400 Body weight 74.66 kg Jeremy Ball Other [facility] Other 01-29-2023 13:30-0400 Diastolic blood pressure 66 mm[Hg] Jeremy Ball Other [facility] Other 01-29-2023 13:30-0400 Respiratory rate 12 /min Jeremy Ball Other [facility] Other 01-29-2023 13:30-0400 Systolic blood pressure 119 mm[Hg] Jeremy Ball Other [facility] Other 01-07-2023 11:20-0400 Body height 182.88 cm Young Yash Other [facility] Other 01-07-2023 11:20-0400 Body mass index (BMI) [Ratio] 22.62 kg/m2 Young Yash Other [facility] Other 01-07-2023 11:20-0400 Body temperature 97.7 [degF] Young Yash Other [facility] Other 01-07-2023 11:20-0400 Body weight 75.66 kg Young Yash Other [facility] Other 01-07-2023 11:20-0400 Diastolic blood pressure 64 mm[Hg] Young Yash Other [facility] Other 01-07-2023 11:20-0400 Respiratory rate 18 /min Young Yash Other [facility] Other 01-07-2023 11:20-0400 SaO2% (BldA) [Mass fraction] 99 % Young Yash Other [facility] Other 01-07-2023 11:20-0400 Systolic blood pressure 127 mm[Hg] Young Yash Other [facility] Other 02-21-2022 11:20-0400 Body height 182.88 cm Young Yash Other [facility] Other 02-21-2022 11:20-0400 Body mass index (BMI) [Ratio] 23.95 kg/m2 Young Yash Other [facility] Other 02-21-2022 11:20-0400 Body temperature 96.8 [degF] Young Yash Other [facility] Other 02-21-2022 11:20-0400 Body weight 80.11 kg Young Yash Other [facility] Other 02-21-2022 11:20-0400 Diastolic blood pressure 62 mm[Hg] Young Yash Other [facility] Other 02-21-2022 11:20-0400 Respiratory rate 18 /min Young Yash Other [facility] Other 02-21-2022 11:20-0400 SaO2% (BldA) [Mass fraction] 98 % Young Yash Other [facility] Other 02-21-2022 11:20-0400 Systolic blood pressure 119 mm[Hg] Young Yash Other [facility] Other 11-08-2021 11:00-0400 Body height 182.88 cm Young Yash Other [facility] Other 11-08-2021 11:00-0400 Body mass index (BMI) [Ratio] 24.79 kg/m2 Young Yash Other [facility] Other 11-08-2021 11:00-0400 Body temperature 97.6 [degF] Young Yash Other [facility] Other 11-08-2021 11:00-0400 Body weight 82.92 kg Young Yash Other [facility] Other 11-08-2021 11:00-0400 Diastolic blood pressure 74 mm[Hg] Young Yash Other [facility] Other 11-08-2021 11:00-0400 Respiratory rate 18 /min Young Yash Other [facility] Other 11-08-2021 11:00-0400 SaO2% (BldA) [Mass fraction] 98 % Young Yash Other [facility] Other 11-08-2021 11:00-0400 Systolic blood pressure 139 mm[Hg] Young Yash Other [facility] Other Encounters Encounter Date Encounter Type Care Provider Facility Start: 09-03-2024 Non-patient / Non-visit Benjam in Ball DO [facility] Work Phone: Start: 09-03-2024 End: 09-03-2024 Patient encounter procedure Jeremy Ball DO Work Phone: [facility] [place] Work Phone: Start: 09-03-2024 End: 09-03-2024 ambulatory Jeremy Ball DO Work Phone: [facility] Work Phone: Start: 09-02-2024 End: 09-02-2024 Patient encounter procedure Jeremy Ball DO Work Phone: [facility] Work Phone: Start: 09-02-2024 End: 09-02-2024 ambulatory Jeremy Ball DO Work Phone: [facility] Work Phone: Start: 09-01-2024 End: 09-01-2024 ambulatory Jeremy Ball DO Work Phone: [facility] Work Phone: Start: 09-01-2024 End: 09-01-2024 Patient encounter procedure Jeremy Ball DO Work Phone: [facility] Work Phone: Start: 08-30-2024 Non-patient / Non-visit Benjam in Ball DO Work Phone: [facility] Work Phone: Start: 08-30-2024 End: 08-30-2024 Admission to same day surgery center Jeremy Ball DO Work Phone: [facility]Interventional [facility]iology Work Phone: Start: 08-30-2024 End: 08-30-2024 ambulatory Jeremy Ball DO Work Phone: [facility] Work Phone: Start: 08-26-2024 End: 08-26-2024 ambulatory [facility] Work Phone: Start: 08-26-2024 End: 08-26-2024 Patient encounter procedure [facility] Work Phone: Start: 07-12-2024 End: 07-12-2024 Patient encounter procedure [facility] Work Phone: Start: 07-09-2024 Non-patient / Non-visit [facility] Work Phone: Start: 07-07-2024 Non-patient / Non-visit [facility] Work Phone: Start: 05-20-2024 End: 05-20-2024 ambulatory [facility] Work Phone: Start: 05-20-2024 End: 05-20-2024 Patient encounter procedure [facility] Nephrology Richard Work Phone: Start: 05-17-2024 Non-patient / Non-visit [facility] Work Phone: Start: 03-19-2024 End: 03-19-2024 ambulatory Ada Soares Facility: [facility] Start: 03-19-2024 End: 03-19-2024 Patient encounter procedure Ada Soares [facility] Start: 01-15-2024 End: 01-15-2024 ambulatory [facility] Work Phone: Start: 01-15-2024 End: 01-15-2024 Patient encounter procedure [facility] Nephrology Richard Work Phone: Start: 01-08-2024 End: 01-08-2024 ambulatory [facility] Work Phone: Start: 01-08-2024 End: 01-08-2024 Patient encounter procedure [facility] Work Phone: Start: 01-05-2024 Non-patient / Non-visit [facility] Work Phone: Start: 10-13-2023 Non-patient / Non-visit [facility] Work Phone: Start: 09-12-2023 End: 09-12-2023 ambulatory Ada M. Lue Facility:[facility] Start: 09-12-2023 End: 09-12-2023 Patient encounter procedure Ada M. Lue [facility] Start: 08-27-2023 End: 08-27-2023 ambulatory Ada M. Lue Facility:[facility] Start: 08-18-2023 End: 08-18-2023 ambulatory Young Yash Other [facility] [employer] Other Start: 08-18-2023 Telephone encounter Young Yash [facility] Start: 08-14-2023 ambulatory Ada Lue Facility:[facility] [place] Start: 08-11-2023 ambulatory Ada Lue Facility:[facility] [place] Start: 08-05-2023 Telephone encounter Jeremy Lam [facility] Start: 08-05-2023 End: 08-05-2023 Admission to same day surgery center DO Jeremy Lam Work Phone: [facility] Work Phone: Start: 08-05-2023 End: 08-05-2023 ambulatory DO Jeremy Lam Work Phone: [facility] Work Phone: Start: 08-04-2023 End: 08-04-2023 ambulatory Young Yash Other [facility] Other Start: 08-04-2023 Telephone encounter Young Yash [facility] Start: 07-24-2023 End: 07-24-2023 ambulatory Young Yash Other [facility] Other Start: 07-24-2023 Office outpatient vi sit 25 minutes Young Yash [facility] Start: 07-17-2023 End: 07-17-2023 ambulatory Sixto Dobson Other [facility] Other Start: 07-17-2023 Telephone encounter Sixto Pascal Lesson In[employer] Start: 07-09-2023 End: 07-09-2023 ambulatory Jeremy Lam Other [facility] Other Start: 07-09-2023 Patient encounter procedure Jeremy Lam [facility] Start: 07-07-2023 End: 07-07-2023 ambulatory Jeremy Lam Other [facility] Other Start: 07-07-2023 Telephone encounter Jeremy Lam [facility] Start: 04-08-2023 End: 04-08-2023 ambulatory Jeremy Lam Other [facility] Other Start: 04-08-2023 Telephone encounter Jeremy Lam FP [facility] Start: 02-06-2023 End: 02-06-2023 ambulatory Jeremy Lam Other [facility] Other Start: 02-06-2023 Telephone encounter Jeremy Lam [facility] Start: 01-29-2023 End: 01-29-2023 ambulatory Jeremy Lam Other [facility] Other Start: 01-29-2023 Office outpatient vi sit 15 minutes Jeremy Ball [facility] Start: 01-29-2023 Telephone encounter Jeremy Genaro Pascal [facility] Start: 01-14-2023 End: 01-14-2023 ambulatory Jeremy Lam Other [facility] Other Start: 01-14-2023 Telephone encounter Jeremy Lam JORDY Pascal [facility] Start: 01-08-2023 End: 01-08-2023 ambulatory Young Yash Other [facility] Other Start: 01-08-2023 Telephone encounter Young Yash [facility] Start: 01-07-2023 End: 01-07-2023 ambulatory Young Yash Other [facility] Other Start: 01-07-2023 Office outpatient vi sit 25 minutes Young Yash [facility] Start: 01-07-2023 Telephone encounter Young Yash [facility] Start: 02-21-2022 End: 02-21-2022 ambulatory Young Yash Other [facility] Other Start: 02-21-2022 Office outpatient vi sit 25 minutes Young Yash [facility] Start: 02-21-2022 Telephone encounter Young Yash [facility] Start: 12-08-2021 End: 12-09-[address] JEREMY LAM Facility: Start: 11-29-2021 Adult health examination Jeremy Lam Other [facility] Other Start: 11-08-2021 End: 11-08-2021 ambulatory Young Yash Other [facility] Other Start: 11-08-2021 Office outpatient vi sit 25 minutes Young Yash [facility] Procedures Date Procedure Procedure Detail Performing Clinician Start: 09-03-2024 Computed tomography of soft tissues of neck without contrast Jeremy Lam DO Work Phone: Start: 02-07-2025 CT of head without contrast Jeremy ron DO Work Phone: Start: 08-30-2024 Radiographic imaging procedure Jeremy Lam [...] Date Care Activity Detail Author Start: 08-30-2024 [facility] Start: 08-05-2023 [facility] CT Neck WO contrast [facility] CT Unspecified body region WO contrast [facility] Patient Education Wound Care for Arterial Puncture (DC) Know your Meds [facility] Work Phone: Patient referral [facility] Work Phone: Renal function 1999 panel - Serum or Plasma [facility] Renal function 1999 panel - Serum or Plasma [facility] [place].doppler Carotid arteries - bilateral [facility] Immunizations Immunization Date Immunization Notes Care Provider Fa yehuda 12-04-2020 COVID-19 Vaccine Mod poly - Documentation Purposes Only Jeremy Lam Other [facility] Comment on above: Result Comment: 2023: [id number] 11-06-2020 COVID-19 Vaccine Mod poly - Documentation Purposes Only Jeremy Lam Other [facility] Comment on above: Result Comment: 2023: [id number] 06-15-2020 zoster vaccine recombinant Jeremy Lam Other [facility] 04-12-2020 zoster vaccine recombinant Jeremy Lam Other [facility] Payers Date Payer Category Payer Self-pay [id number] 2024 Unknown [id number] 2023 Medicare [id number] 2.1 [id number] 2023 Private Health Insurance [id number] 1959 Private Health Insurance [id number] 1955 Unknown [id number] 2.16.84 [id number] 1957 Unknown [id number] 2.16.8 [id number] 1957 Unknown [id number] 2.16.8 [id number] 1957 Unknown [id number] 2.16.8 [id number] 1957 Unknown [id number] 2.16.8 [id number] 1957 Unknown [id number] 2.16.8 [id number] Private Health Insurance [id number] Unknown [id number] 2.16.8 [id number] Unknown [id number] 2.16.8 [id number] Unknown [id number] 2.16.8 [id number] Social History Date Type Detail Facility Unknown if ever smoked [facility] Other Start: 07-28-2067 Sex Assigned At F [facility] Start: 08-05-2023 End: 09-02-2024 Tobacco smoking status NHIS Smoker (finding) [facility] Start: 1955 Sex Assigned At Male F [facility] Start: 08-27-2023 Tobacco smoking status Heavy t obacco smoker (finding) [facility] Tobacco smoking status Never [facility] Start: 08-26-2024 End: 09-04-2024 Sex Male (finding) [facility] Goals Date Patient Goal Desired Activity /State Functional Status Date Assessment Result Facility 09-12-2023 Functional Status N/A [facility] Clinical Notes 11-08-2021 to 09-03-2024 Note Date & Type Note Facility 09-03-2024 Radiology Diagnostic study note [facility] [place] [address] CT Scan Report Signed Patient: Sabrina Guevara MR#: [id number] : 1955 Acct:[id number] Age/Sex: 69 / M ADM Date: 5 Loc: CT Room: Type: [facility] Attending Dr: Shirley Collins [employer]HW[address] MAINTENANCE TECHNICIAN-C Copies to: Shirley Collins APRN~ Ordering Provider: Shirley Collins APRN Date of Service: 09/03/24 CT/CT head/brain wo con: I65.21 - Occlusion and stenosis of right carotid artery ([id number]) CT/CT soft tissue neck wo con: I65.21 - Occlusion and stenosis ofright carotid artery CT head/brain wo con, CT soft tissue neck wo con 09/03/2024 9:58 AM SIGNS AND SYMPTOMS: ^I65.21 - Occlusion and stenosis of right carotid artery TECHNIQUE:Multi-detector CT axial slices of the brain and soft tissues of the neck were obtained without IV contrast. Sagittal and coronal reconstructions were performed. CT was performed with one or more of the following dose reduction techniques: Automated exposure control, adjustment of the mA and/or kVaccording to patient size, or use of iterative reconstruction technique. COMPARISON: None. FINDINGS: CT brain: There is no shift of the midline structures, acute intracranial bleeding, mass effects, or evidence of acute ischemia. There is age-related cortical atrophy. There is periventricular white matter hypoattenuation. Atherosclerotic changes are noted in the intracranial segments of the internal carotid arteries. The ventricular system is normal in size. The brainstem and the cerebellum are unremarkable. The visualized intraorbital contents, the visualized paranasal sinuses, and the infratemporal soft tissues show no acute abnormality. The osseous structures in the skull base and the calvarium show no abnormality. Soft tissue neck CT: Soft tissues of the orbits are within normal limits. The soft tissues of the infratemporal fossa fossa structures show no acute abnormality. Mucosal surfacesof the nasopharynx, oropharynx, hypopharynx, glottic, and subglottic airways aregrossly unremarkable. The parotid glands, submandibular, and the thyroid gland are within normal limits. The carotid and jugular circulations are within normal limits. Mild emphysematous changes are present. No acute bony abnormalities are appreciated. Degenerative changes are noted in the cervical and thoracic spine. The skull base, craniocervical junction, atlantoaxial joints are within normal limits. The paranasal sinuses are within normal limits. CT/CT head/brain wo con IMPRESSION: No acute intracranial pathology. Chronic age-related neurodegenerative changes are noted as above. No evidence of mass or soft tissue swelling. Calcified plaque is noted in the carotid bifurcations. Stenosis cannot be accurately assessed on noncontrast studies. Impression dictated by: Dwaine Moreno M.D.09/03/2024 1:35 PM Dictation Location: [place] [address] Transcribed By: ARPIT 09/03/24 1335 Dictated By: Dwaine Moreno II, MD 09/03/24 1325 Signed By: 09/03/24 1335 [facility] Work Phone: 08-30-2024 Procedure note [facility] enter 07-12-2024 Evaluation note Diagnosis Onset Date [...] visit, initial noneactive July 12, 2024 9:56am [facility] Work Phone: 1(966) 552-355612-16-2024 Evaluation note* Diagnosis Onset Date Resolution Status Admit Date Anemia acute July 12, 2024 9:56am Carotid stenosis, right acute D ecember 2023 9:56am Chronic bronchitis acute Decemb er 2023 9:56am Chronic kidney disease acute De cem2023 9:56am Hypercholesterolemia acute Dece mber 2023 9:56am Hypertension acute June 9:56am Hyponatremia acute June 9:56am Nicotine addiction acute [facility] er 2023 9:56am Screening PSA (prostate spec ific antigen) acute July 12, 9:56am Medicare annual wellness vis it, initial noneactive July 12 9:56am Carotid bruit acute July 10:43am CKD (chronic kidney disease) stage 4, GFR 15-29 ml/min acute y 2024 10:43am Occlusion and stenosis of bilateral carotid arteries acute ry 2024 10:43am [facility] Work Phone: 1(736) 887-389712-16-2024 Evaluation note* Diagnosis Onset Date Resolution Status Admit Date Anemia acute July 12, 2024 9:56am Carotid stenosis, right acute D ecember 2023 9:56am Chronic bronchitis acute Decemb er 2023 9:56am Chronic kidney disease acute De cember 2023 9:56am Hypercholesterolemia acute Dece mber 2023 9:56am Hypertension acute June 9:56am Hyponatremia acute June 9:56am Nicotine addiction acute Dece er 2023 9:56am Screening PSA (prostate spec ific antigen) acute July 12 9:56am Medicare annual wellness vis it, initial noneactive July 12 9:56am Carotid bruit acute July 10:43am CKD (chronic kidney disease) stage 4, GFR 15-29 ml/min acute Juluar y 2024 10:43am Occlusion and stenosis of bilateral carotid arteries acute ry 2024 10:43am Occlusion and stenosis of bilateral carotid arteries acute u carley2024 9:52am [facility] Work Phone: 1(907) 920-432502-16-2024 Hospital Discharge instructions Patient Education 09/12/2023 08:06:25 [...] including vitamins, herbs, eye drops, creams, and njjr-ccv-plixvmv medicines. Any problems you or family members [...] provider tells you to take them. Taking evvp-haw-pfnwato medicines, vitamins, herbs, and supplements. Tests You [...] Follow these instructions at home: Medicines Take ebew-dhp-wnlwquy and prescription medicines only as told by [...] provider. Document Revised: 03/27/2022 Document Reviewed: 02/23/2021 [employer] Patient Education 2022 [employer]. Follow Up Care 08/27/2023 10:15:46 With:Rodger BRIDGES, MCKAYLA Tipton, URO Address: [address] [place] [address] [phone] When: Unknown Comments:6 mos (new med) [facility] Alejandro 02-16-2024 NoteUrology Cystoscopy Cystoscopy is a procedure [...] including vitamins, herbs, eye drops, creams, and kjgn-imh-bftboor medicines. ? Any problems you or family [...] tells you to take them. ? Taking udpz-wqa-pfdbohi medicines, vitamins, herbs, and supplements. Tests You [...] these instructions at home: Medicines ? Take szea-mfr-brqizrb and prescription medicines only as told by [...] or the department th (more content not included)...[facility] 08-27-2023 NoteChief Complaint Referral *Bladder Wall Thickening HPI Staff Environmental Emergencies Assistant referral for bladder wall thickening by Dr [...] disorders of bladder) CT AP wo Con @[facility] 08/04/23 - right urinary bladder wall [...] & nocturia. Denies leakin (more content not included)...[facility]:Result Comment: Electronically Signed By: Ada Soares MD\.br\Date and Time Signed: 08/27/23 09:44EST\.br\Electronically Co-Signed By: Dalia Campos\.br\Date and Time Co-Signed: 08/27/23 09:16 [id number] [facility]* Encounter Date Diagnosis Assessment Notes Treatment Notes Treatment Clinical Notes Jul, Bladder wall thickening (ICD-10 - N32.89) Denies dysuria, polyuria or hematuria. Due to findings, referral for cystoscopy has been initiated. [facility] Other 01-08-2024 Evaluation note* Encounter Date Diagnosis Assessment Notes Treatment Notes Treatment Clinical Notes Jul, Cigarette nicotine dependence without complication (ICD-10 - F17.210) LDCT: 11/2021, 07/2023 [facility] Other 12-28-2023 Evaluation note* Encounter Date Diagnosis [...] I explained to him potential need of CARBURETOR REPAIRER in the near future. I discussed with him different option of CARBURETOR REPAIRER including transplant, PD and HD. He is [...] and folate level. No need for LUPE. [facility] Other 12-13-2023 Evaluation note* Encounter Date Diagnosis [...] (ICD-10 - Z12.5) Yearly GARRISON and PSA [facility] Other 12-11-2023 Evaluation note* Encounter Date Diagnosis [...] adequate fluid balance and to avoid dehydration. [facility] Other 07-13-2023 Evaluation note* Encounter Date Diagnosis Assessment Notes Treatment Notes Treatment Clinical Notes Jan, Elevated cholesterol (ICD-10 - E78.00) [facility] Other 07-05-2023 Evaluation note* Encounter Date Diagnosis [...] to respiratory infections, vascular disease and cancers. 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 I discussed with him different option of CARBURETOR REPAIRER including transplant, PD and HD. He is [...] potassium diet and provide information about it [facility] Other 06-13-2023 Evaluation note* Encounter Date Diagnosis [...] I explained to him potential need of CARBURETOR REPAIRER in the near future. I discussed with him different option of CARBURETOR REPAIRER including transplant, PD and HD. He is [...] potassium diet and provide information about it [facility] Other 07-28-2022 Evaluation note* Encounter Date Diagnosis [...] I explained to him potential need of CARBURETOR REPAIRER in the near future. I discussed with him different option of CARBURETOR REPAIRER including transplant, PD and HD. He is [...] potassium diet and provide information about it [facility] Other [id number] Evaluation note* Encounter Date Diagnosis Assessment Notes [...] I explained to him potential need of CARBURETOR REPAIRER in the near future. I discussed with him different option of CARBURETOR REPAIRER including transplant, PD and HD. He is [...] potassium diet and provide information about it [facility] Other Evaluation + Plan note Future Appointments Appointment Date:03/19/2024 10:00:00 AM Scheduled Provider:Ada Soares MD Location:[facility] Alejandro Appointment Type:URO Office Visit [facility] Dema Evaluation noteNo InformationNort [place] Other Evaluation noteNo assessment information available [facility] Work Phone: Evaluation note* Diagnosis Onset Date Resolution Status Anemia acute Carotid stenosis, right acut e Chronic bronchitis acute Chronic kidney disease acute GERD (gastroesophageal reflux disease) acute H/O: gout acute Hypercholesterolemia acute Hypertension acute Hyponatremia acute Nicotine addiction acute [facility] Work Phone: Evaluation note* Diagnosis Onset Date Resolution Status Anemia acute Carotid stenosis, right acut e Chronic bronchitis acute Chronic kidney disease acute GERD (gastroesophageal reflux disease) acute Hypercholesterolemia acute Hypertension acute Hyponatremia acute Nicotine addiction acute Anemia of renal disease acut e Atrophic kidney acute CKD (chronic kidney disease) stage 4, GFR 15-29 ml/min acute Hyperlipidemia acute [id number] acute Hyponatremia acute Secondary hyperparathyroidism acute [facility] Work Phone: Evaluation note* Diagnosis Onset Date Resolution Status Anemia of renal disease acut e Atrophic kidney acute CKD (chronic kidney disease) stage 4, GFR 15-29 ml/min acute Hyperlipidemia acute [id number] acute Hyponatremia acute Secondary hyperparathyroidism acute [facility] Work Phone: History and physical note Author Sixto Dobson [facility] August 05, 2023 3:00pm Note Date/Time August 05, 2023 3: 00pm [facility] [address] [place] [address] Gastroenterology H&P Signed Patient: Sabrina Guevara MR#: [id number] : 1955 Acct:[id number] Age/Sex: 68 / M Adm Date: 4 Loc: Room: Type: [facility] Attending Dr: Sixto Dobson MD Copies to: [...] signed by Sixto Dobson MD> 08/05/23 1500 [facility] Work Phone: Hiszbvm general Narrative - Reported* Type Description Date [...] Surgical History COLONOSCOPY Hospitalization History SEE ABOVE [facility] Other [facility] Narrative - Reported* Type Description Date [...] History COLONOSCOPY 2019 Hospitalization History SEE ABOVE [facility] Other [facility] Narrative - Reported* Type Description Date [...] History COLONOSCOPY 2019 Hospitalization History SEE ABOVE [facility] Narrative - Reported* Type Description Date [...] History EGD 07/2023 Hospitalization History SEE ABOVE [facility] Other Hospital course Narrative No data available for this section [facility] Hospital Discharge instructions Additional Instructions DISCHARGE INSTRUCTIONS [...] problems. -Follow up with PCP. -Office number [phone].[facility] Work Phone: Hospital Discharge instructions No data available for this section [facility] Progress note No data available for this section [facility] Reason for referral (narrative)* Reason *Waiting for appt Referral for EGD Diagnosis 1 Weight loss, uninten tional (R63.4) Diagnosis 2 Early satiety (R68.8 1) Diagnosis 3 Anemia, unspecified type (D64.9) Referral Organization [facility] Genaro Dawn C anita Referring Provider First Name Jeremy Referring Provider Last Name Genaro Referring Provider Specialty Internal Me dicine Referred Organization [facility] Gastroenterolo gy Referred Provider Tanvir Mc Referred Address [address],[place] [address] ,[place], [place],[address] Referred Provider Specialty Gastroentero logy Referral Priority [...] 07/10/2023 09:14:25 AM >received today, referral faxed [facility] Other Summary Purpose Family History No Family [...] ischemic attack Unknown mother Unknown Advance Directives No Advanced Directives Records [...] disease) stage 4, GFR 15-29 ml/min Hyperlipidemia [id number] Hyponatremia Secondary hyperparathyroidism Chief Complaint RENAL 4 MONTH F/U Reason for Visit Anemia of renal dise ase Atrophic kidney CKD (chronic kidney disease) stage 4, GFR 15-29 ml/min Hyperlipidemia [id number] Hyponatremia Secondary hyperparathyroidism Chief Complaint Admit Date CC Adult Risk Stratification July 092023 1:26pm wellness July 12, 2024 9:56am Ref from Dr. Lam; Carotid Stenosis Quirino carley 2024 10:43am Reason for Visit Admit Date [...] To go over angiogram; Carotid Stenosis F ebruary 2024 9:52am Chief Complaint Admit Date CC Adult Risk Stratification July 092023 1:26pm wellness July 12, 2024 9:56am Ref from Dr. Lam; Carotid Stenosis Quirino 2024 10:43am Carotid Stenosis August 30, 2024 8 :59am Carotid Stenosis August 30, 2024 1 0:33am To go over angiogram; Carotid Stenosis F 2024 9:52am Carotid Stenosis September 02, 2024 [...] delgado tid arteries September 01, 2024 9:52am Chief Complaint Admit Date CC Adult Risk Stratification July 092023 1:26pm wellness July 12, 2024 9:56am Ref from Dr. Lam; Carotid Stenosis Quirino 2024 10:43am Carotid Stenosis August 30, 2024 8 :59am Carotid Stenosis August 30, 2024 1 0:33am To go over angiogram; Carotid Stenosis F 2024 9:52am Carotid Stenosis September 02, 2024 3 :21pm I65.21 N18.4 September 03, 2024 9 :57am Reason for Referral Reason Mr. Guevara is bein g referred for cystoscopy Diagnosis 1 Bladder wall thicken ing (N32.89) Referral Organization [facility] Genaro howard Referring Provider First Name Jeremy Referring Provider Last Name Genaro Referring Provider Specialty Internal Me dicine Referred Organization [facility] Referred Address [address],[place], [place],[address] Referred Provider Specialty Urology Referral Priority Routine [...] DATE CREATED AUTHOR AUTHOR'S ORGANIZ ATION 03/22/2024 [facility] DATE CREATED AUTHOR AUTHOR'S ORGANIZ ATION 09/10/2024 [facility] REASON FOR VISIT (unrecogniz ed [...] September 02, 2024 End: September 02, 2024 Team Status: Inactive Member Role Status Minesh Lam DO Primary Care Provider Active Start: September 03, 2024 End: September 03, 2024 DALTON Lester Attending Provider Active Start: September 03, 2024 End: September 03, 2024 Team Status: Active Member Role Status Minesh Lam DO Primary Care Provide r, Attending Provider Active Start: September 03, 2024 Goals (unrecognized section and content) Goals [...] BE BASED ON THE PRIMARY CLINICAL RECORDS. [employer] [facility]. provides no warranty or guarantee of the accuracy or completeness of information in this document.
[2024-09-13 10:07] LABS: Anion Gap 11.2; BUN Creatinine Ratio 8.3; Carbon Dioxide 26.2 mmol/L (21.0-32.0); Chloride 99 mmol/L (98-107); Estimated GFR (African America 28 (>=60 mL/min/1.73m^2); Estimated GFR (Non-African Ame 23 (>=60 mL/min/1.73m^2); Glucose 108 mg/dL (74-106); Potassium 4.4 mmol/L (3.5-5.1); Sodium 132 mmol/L (136-145)
== END 2024-09-13 09:42 | disposition home or self-care (01) ==
LOC: LAB 09:45
PROVIDERS: PCP Internal Medicine; Visit Provider Internal Medicine
DX: E87.1 Hypo-osmolality and hyponatremia (principal)
CPT/HCPCS: 36415; 80048

== ENCOUNTER 2024-09-17 07:55 | Outpatient (OUT) | payer MEDICARE, SELFPAY ==
--- OUTSIDE RECORDS SUMMARY | 2024-09-17 08:07 | XMS_ITS | CCD ---
Author Organization [facility] CliniSynh Care Team Providers Care Feed Project Engineer Name Role Phone DR JEREMY LAM Consulting Unavailable GENARO, DR NAGEL Attending Unavailable GENARO, DR NAGEL Admitting Unavailable GENARO, DR NAGEL Primary Care Unavailable DARIO, DR ADELINA Crews Consulting Unavailable Young Berrios Unavailable Jeremy Lam Unavailable Sixto Dobson Unavailable DO Jeremy Lam Primary Care Provider MD Sixto Dobson Attending Provider [phone] JEREMY LAM Primary Care Physician Ada Soares Attending Unavailable Ada Soares Attending Unavailable Ada Soares Attending Unavailable JEREMY LAM Referring Unavailable Jeremy Lam DO Primary Care Provider Onofre Francis MD Attending Provider [phone] Dennis WASTE W[employer] PLANT OPERATOR-CShirley Attending Provider Jeremy Lam Primary Care Unavailable Shirley Collins Admitting Unavailable Shirley Collins Attending Unavailable Onofre Francis Attending UnavailJeremy Moreira Primary Care Unavailable Onofre Francis Admitting UnavailJeremy Moreira Primary Care Unavailable Onofre Francis Admitting UnavailOnofre Crespo Attending UnavailOnofre Crespo Attending UnavailJeremy Moreira Primary Care Unavailable Onofre Francis Admitting UnavailOnofre Crespo MD Admit Provider Allergies Allergy Classification Reported Allergen(s) Allergy Type Date of Onset Reaction(s) Facility (2 sources) patient allergy list reviewed by nurse or physicia Propensity to adverse reactions 9 Comment:Done [employer] Other (1 source) No Known Medication Allergies; Translations: [No Known Medication Allergies] Propensity to adverse reactions (disorder) [facility] Repository Medications Current Medications Medication Drug [...] 2024 10:05am clopidogrel 75 mg oral tablet (9 sources) P2Y12 Platelet Inhibitor Start: 08-26-2024 End: 09-02-2024 take 1 tablet by mouth once daily in the morning Clopidogrel 75 mg tablet Active 75 MG PO Every morning September 02, 2024 12:00am famotidine 40 mg oral tablet (12 sources) Histamine-2 Receptor Antagonist Start: 09-23-2023 End: 09-02-2024 take 1 tablet by mouth once daily in the morning Famotidine (Pepcid) 40 mg tablet Active 40 MG PO Every morning February 6th, 2025 12:00am Take 1 tablet orally once a day labetalol hydrochloride 100 mg oral tablet (20 sources) beta-Adrenergic Inna Start: 08-05-2023 End: 04-16-2024 take 1 tablet by mouth twice daily Labetalol 100 mg tablet Active 100 MG PO Twice daily 180 April 16, 2024 3:45pm levothyroxine sodium 0.025 mg oral tablet (2 sources) l-Thyroxine Start: 09-06-2024 End: 09-10-2024 take 1 tablet by mouth once daily Levothyroxine 25 mcg tablet Active 25 MCG PO Daily September 10, 2024 2:15pm omeprazole 40 mg delayed release oral capsule (8 sources) Proton Pump Inhibitor Start: 08-27-2023 omeprazole 40 mg Cap-DR Refills(s) 0 Start Date: 08/27/23 Status: Ordered Start: 07-09-2023 take 1 capsule by mo ut once daily Omeprazole 40 MG 1 capsule 30 minutes before morning meal Orally Once a day for 30 days Jun, Active tamsulosin hydrochloride 0.4 mg oral capsule (11 sources) alpha-Adrenergic Inna Start: 09-12-2023 take 1 [...] mg tablet Discontinued 5 MG PO Daily May 07, 2024 12:56pm September 02, 2024 [...] Disc ontinued 20 MG PO Daily 45 90 July 12, 2024 10:18am September 02, 2024 [...] mo uth every week Ergocalciferol 1.25 MG (94447 UT) 1 capsule Orally Q week for [...] Chronic Chronic obstructive pulmonary disease and bronchiectasis (17 sources) Chronic bronchitis; Translations: [Unspecified chronic bronchitis] 01-06-2024 Chronic Deficiency and other anemia (7 sources) Anemia of renal disease; Translations: [Anemia in chronic kidney disease] Chronic Deficiency and other anemia (1 source) Anemia in chronic kidney disease Chronic Deficiency and other anemia (9 sources) Anemia, unspecified; Translations: [Anemia, unspecified] Episodic Deficiency and other anemia (9 sources) Anemia; Translations: [Anemia, unspecified] 01-08-2024 Episodic Disorders of lipid metabolism (20 sources) Hypercholesterolemia; Translations: [Pure hypercholesterolemia, unspecified] Chronic Esophageal disorders (11 sources) Gastroesophageal reflux disease; Translations: [Gastro-esophageal reflux [...] 2 Resolved: 2 Chronic Hyperplasia of prostate (18 sources) Lower urinary tract symptoms due to benign prostatic hypertrophy; Translations: [Benign prostatic hyperplasia with lower urinary tract symptoms] Onset: 7 Chronic Hypertension with complications and secondary hypertension (20 sources) Chronic kidney disease due to hypertension; Translations: [Hypertensive chronic kidney disease with stage 1 through stage 4 chronic kidney disease, or unspecified chronic kidney disease] Onset: 2 Resolved: 2 Chronic Nausea and vomiting (9 sources) Nausea and vomiting; Translations: [Nausea with [...] source) Long-term current use of aspirin; 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 EHR Cmte Other nutritional; endocrine; and metabolic disorders (1 source) Abnormal weight loss Episodic Other screening for suspected conditions (not mental disorders or infectious disease) (14 sources) Encounter for screening for malignant neoplasm of prostate; Translations: [Patient encounter status] Episodic Residual codes; unclassified (4 sources) Tobacco user; Translations: [Tobacco use] Onset: 7 Episodic Residual codes; unclassified (1 source) Early satiety Episodic Residual codes; unclassified (9 sources) Early satiety; Translations: [Early satiety] 09-23-2023 [...] Test Name Value Interpretation Reference Range Facility Alanine aminotransferase [En zymatic activity/volume] in Serum or PlasmaOrdered By: Onofre Francis on 09-15-2024 ALT [Catalytic activity/Vol] Alanine aminotransferase [Enzymatic activity/volume] in Serum or Plasma Low 7- [facility] Albumin [Mass/volume] in Ser um or Plasma by Bromocresol green (BCG) dye binding methoOrdered By: Onofre Francis on 09-15-2024 Albumin BCG dye [Mass/Vol] Albumin [Mass /volume] in Serum or Plasma by Bromocresol green (BCG) dye binding metho Low 3.5-5.7 [facility] Alkaline phosphatase [Enzyma tic activity/volume] in Serum or PlasmaOrdered By: Onofre Francis on 09-15-2024 ALP [Catalytic activity/Vol] Alkaline ph osphatase [Enzymatic activity/volume] in Serum or Plasma 34-104 [facility] Aspartate aminotransferase [ Enzymatic activity/volume] in Serum or PlasmaOrdered By: Onofre Francis on 09-15-2024 AST [Catalytic activity/Vol] Aspartate aminotransferase [Enzymatic activity/volume] in Serum or Plasma 13-39 [facility] Bilirubin.total [Mass/volume ] in Serum or PlasmaOrdered By: Onofre Francis on 09-15-2024 Bilirubin [Mass/Vol] Bilirubin.total [Mass/volume] in Serum or Plasma 0.3-1.0 [facility] Calcium [Mass/volume] in Ser um or PlasmaOrdered By: Onofre Francis on 09-15-2024 Calcium [Mass/Vol] Calcium [Mass/volume ] in Serum or Plasma 8.6-10.3 [facility] Carbon dioxide, total [Moles /volume] in Serum or PlasmaOrdered By: Onofre Francis on 09-15-2024 CO2 [Moles/Vol] Carbon dioxide, tota l [Moles/volume] in Serum or Plasma 21.0-31.0 [facility] Chloride [Moles/volume] in S iris or PlasmaOrdered By: Onofre Francis on 09-15-2024 Chloride [Moles/Vol] Chloride [Moles/volume] in Serum or Plasma 98-107 [facility] Comprehensive Metabolic Pane chidi 09-15-2024 Albumin [Mass/Vol] 3.3 g/dL Low 3.5-5.7 [facility] Comment on above: Order Comment: Comme nt TO BE DRAWN DAY OF SURGERY Performed By: #### C MP #### [facility] [address] Albumin/Globulin [Mass ratio] 1.4 {ratio} Normal [facility] Comment on above: Order Comment: Comme nt TO BE DRAWN DAY OF SURGERY Performed By: #### C MP #### [address] ALP [Catalytic activity/Vol] 58 U/L Normal 34-104 [facility] Comment on above: Order Comment: Comme nt TO BE DRAWN DAY OF SURGERY Performed By: #### C MP #### [address] ALT [Catalytic activity/Vol] 6 U/L Low 7-52 [facility] Comment on above: Order Comment: Comme nt TO BE DRAWN DAY OF SURGERY Performed By: #### C MP #### [address] Anion gap [Moles/Vol] 9.1 mmol/L Normal 6.0-15.0 [facility] Comment on above: Order Comment: Comme nt TO BE DRAWN DAY OF SURGERY Performed By: #### C MP #### [address] AST [Catalytic activity/Vol] 13 U/L Normal 13-39 [facility] Comment on above: Order Comment: Comme nt TO BE DRAWN DAY OF SURGERY Performed By: #### C MP #### [address] Bilirubin [Mass/Vol] 0.5 mg/dL Normal 0.3-1.0 [facility] Comment on above: Order Comment: Comme nt TO BE DRAWN DAY OF SURGERY Performed By: #### C MP #### [address] Calcium [Mass/Vol] 8.6 mg/dL Normal 8.6-10.3 [facility] Comment on above: Order Comment: Comme nt TO BE DRAWN DAY OF SURGERY Performed By: #### C MP #### [place] [address] [place] Chloride [Moles/Vol] 104 mmol/L Normal 98-107 [facility] Comment on above: Order Comment: Comme nt TO BE DRAWN DAY OF SURGERY Performed By: #### C MP #### [place] [address] [place] CO2 [Moles/Vol] 22.6 mmol/L Normal 21.0-31.0 [facility] Comment on above: Order Comment: Comme nt TO BE DRAWN DAY OF SURGERY Performed By: #### C MP #### [address] Creatinine [Mass/Vol] 2.45 mg/dL High 0.70-1.30 [facility] Comment on above: Order Comment: Comme nt TO BE DRAWN DAY OF SURGERY Performed By: #### C MP #### [address] Creatinine Clr Calc Pharmacy 31.20 Normal [facility] Comment on above: Order Comment: Comme nt TO BE DRAWN DAY OF SURGERY Result Comment: PERF ORMED BY: [place] [address] PATHOLOGIST PROGRAMMING COORDINATOR GARCÍA AZUL M.D. Performed By: #### C MP #### [address] Estimated GFR 28.145 mL/Min Normal [facility] Comment on above: Order Comment: Comme nt TO BE DRAWN DAY OF SURGERY Performed By: #### C MP #### [address] Globulin (S) [Mass/Vol] 2.3 g/dL Normal [facility] Comment on above: Order Comment: Comme nt TO BE DRAWN DAY OF SURGERY Performed By: #### C MP #### [address] Glucose [Mass/Vol] 76 mg/dL Normal 70-100 [facility] Comment on above: Order Comment: Comme nt TO BE DRAWN DAY OF SURGERY Result Comment: Vivian Glucose Reference Range is dependent on time and content of last meal. Glucose of more than 200 mg/dL in a nonstressed, ambulatory subject supports the diagnosis of Diabetes Mellitus. ADA recommended reference range Performed By: #### C MP #### [address] Potassium [Moles/Vol] 4.7 mmol/L Normal 3.5-5.1 [facility] Comment on above: Order Comment: Comme nt TO BE DRAWN DAY OF SURGERY Performed By: #### C MP #### [address] Protein [Mass/Vol] 5.6 g/dL Low 6.4-8.9 [facility] Comment on above: Order Comment: Comme nt TO BE DRAWN DAY OF SURGERY Performed By: #### C MP #### [address] Sodium [Moles/Vol] 131 mmol/L Low 136-145 [facility] Comment on above: Order Comment: Comme nt TO BE DRAWN DAY OF SURGERY Performed By: #### C MP #### [address] Urea nitrogen [Mass/Vol] 21 mg/dL Normal 7-25 [facility] Comment on above: Order Comment: Comme nt TO BE DRAWN DAY OF SURGERY Performed By: #### C MP #### [address] Creatinine [Mass/volume] in Serum or PlasmaOrdered By: Onofre Francis on 09-15-2024 Creatinine [Mass/Vol] Creatinine [Mass/volume] in Serum or Plasma High 0.70-1.30 [facility] Globulin Calc (S) [Mass/Vol] Ordered By: Onofre Francis on 09-15-2024 Globulin (S) [Mass/Vol] Serum globulin measurement by calculation (mass/volume) [facility] Glucose [Mass/volume] in Ser um or PlasmaOrdered By: Onofre Francis on 09-15-2024 Glucose [Mass/Vol] Glucose [Mass/volume ] in Serum or Plasma 70-100 [facility] Comment on above: ADA recommended refe rence rangeRandom Glucose Reference Range is dependent on time and content of last meal. Glucose of more than 200 mg/dL in a nonstressed, ambulatory subject supports the diagnosis of Diabetes Mellitus. No Panel InformationOrdered By: Onfore Francis on 09-15-2024 Estimated GFR (CKD-EPI) 28.145 mL/Min [facility] Creatinine Clearance (Chem 31.20 [facility] Potassium [Moles/volume] in Serum or PlasmaOrdered By: Onofre Francis on 09-15-2024 Potassium [Moles/Vol] Potassium [Moles/volume] in Serum or Plasma 3.5-5.1 [facility] Protein [Mass/volume] in Ser um or PlasmaOrdered By: Onofre Francis on 09-15-2024 Protein [Mass/Vol] Protein [Mass/volume ] in Serum or Plasma Low 6.4-8.9 [facility] Serum or plasma albumin/glob ulin mass ratioOrdered By: Onofre Francis on 09-15-2024 Albumin/Globulin [Mass ratio] Serum or plasma albumin/globulin mass ratio [facility] Serum or plasma anion gap de terminationOrdered By: Onofre Francis on 09-15-2024 Anion gap [Moles/Vol] Serum or plasma an ion gap determination 6.0-15.0 [facility] Sodium [Moles/volume] in Ser um or PlasmaOrdered By: Onofre Francis on 09-15-2024 Sodium [Moles/Vol] Sodium [Moles/volume ] in Serum or Plasma Low 136-145 [facility] Urea nitrogen [Mass/volume] in Serum or PlasmaOrdered By: Onofre Francis on 09-15-2024 Urea nitrogen [Mass/Vol] Urea nitrogen [Mass/volume] in Serum or Plasma 7-25 [facility] Activated Clotting Timeon Activated Clotting Time POC 268 s High 90-139 [facility] Comment on above: Result Comment: Refe rence Range: 90-139 (Non-heparinized) PERFORMED BY: [place] [address] PATHOLOGIST PROGRAMMING COORDINATOR GARCÍA AZUL M.D. Performed By: #### A CT #### [address] Activated Clotting Time POC 106 s Normal 90-139 [facility] Comment on above: Result Comment: Refe rence Range: 90-139 (Non-heparinized) PERFORMED BY: [place] [address] PATHOLOGIST PROGRAMMING COORDINATOR GARCÍA AZUL M.D. Performed By: #### A CT #### [facility] [address] [place] [address] [place] Amphetamine Screen Ql (U)Ord ered By: ADELINA BEDOLLA on 09-14-2024 Amphetamines Ql (U) Amphetamines screen Negativ e [facility] Barbiturates [Presence] in U rine by Screen methodOrdered By: ADELINA BEDOLLA on 09-14-2024 Barbiturates Screen Ql (U) Barbiturates [Presence] in Urine by Screen method Negative [facility] Basic Metabolic Panelon 08-28 Anion gap [Moles/Vol] 12.7 mmol/L Normal 6.0-15.0 [facility] Comment on above: Order Comment: Comme nt dos Performed By: #### B MP #### [facility] [address] [place] [address] [place] Calcium [Mass/Vol] 9.4 mg/dL Normal 8.6-10.3 [facility] Comment on above: Order Comment: Comme nt dos Performed By: #### B MP #### [facility] [address] [place] [address] [place] Chloride [Moles/Vol] 105 mmol/L Normal 98-107 [facility] Comment on above: Order Comment: Comme nt dos Performed By: #### B MP #### [facility] [address] [place] [id number] [place] CO2 [Moles/Vol] 19.8 mmol/L Low 21.0-31.0 [facility] Comment on above: Order Comment: Comme nt dos Performed By: #### B MP #### [facility] [address] [place] [id number] [place] Creatinine [Mass/Vol] 2.40 mg/dL High 0.70-1.30 [facility] Comment on above: Order Comment: Comme nt dos Performed By: #### B MP #### [facility] [address] [place] [id number] [place] Creatinine Clr Calc Pharmacy 31.85 Normal [facility] Comment on above: Order Comment: Comme nt dos Result Comment: PERF ORMED BY: [place] [address] PATHOLOGIST PROGRAMMING COORDINATOR GARCÍA AZUL M.D. Performed By: #### B MP #### [address] Estimated GFR 28.850 mL/Min Normal [facility] Comment on above: Order Comment: Comme nt dos Performed By: #### B MP #### [address] Glucose [Mass/Vol] 84 mg/dL Normal 70-100 [facility] Comment on above: Order Comment: Comme nt dos Result Comment: Vivian Glucose Reference Range is dependent on time and content of last meal. Glucose of more than 200 mg/dL in a nonstressed, ambulatory subject supports the diagnosis of Diabetes Mellitus. ADA recommended reference range Performed By: #### B MP #### [address] Potassium [Moles/Vol] 4.5 mmol/L Normal 3.5-5.1 [facility] Comment on above: Order Comment: Comme nt dos Performed By: #### B MP #### [address] Sodium [Moles/Vol] 133 mmol/L Low 136-145 [facility] Comment on above: Order Comment: Comme nt dos Performed By: #### B MP #### [address] Urea nitrogen [Mass/Vol] 22 mg/dL Normal 7-25 [facility] Comment on above: Order Comment: Comme nt dos Performed By: #### B MP #### [address] Benzodiazepines Screen Ql (U )Ordered By: ADELINA BEDOLLA on 09-14-2024 Benzodiazepines Ql (U) Benzodiazepines [Presence] in Urine by Screen method Negative [facility] Benzoylecgonine [Presence] i n Urine by Screen methodOrdered By: ADELINA BEDOLLA on 09-14-2024 Benzoylecgonine Screen Ql (U) Benzoylecgonine [Presence] in Urine by Screen method Negative [facility] Blood activated clotting tamara e by coagulation assayOrdered By: Onofre Francis on 09-14-2024 ACT Coag (Bld) Blood activated clotting time by coagulation assay High 90-139 [facility] Comment on above: Reference Range: 90- 139 (Non-heparinized) Cannabinoids [Presence] in U rine by Screen methodOrdered By: ADELINA BEDOLLA on 09-14-2024 Cannabinoids Screen Ql (U) Cannabinoids [Presence] in Urine by Screen method High Negative [facility] Comment on above: These are unconfirme d results and should not be used for legal purposes. Drug Cut-Off Concentration: AMPH 1000 ng/mL NORMA 200 ng/mL LUIS 200 ng/mL COCM 300 ng/mL OP 300 ng/mL PCP 25 ng/mL THC 20 ng/mL Drug Screen,Urineon 09-14-19 25 Amphetamine Screen,Urine Negative Normal Negative [facility] Comment on above: Performed By: #### U RDS #### [address] Barbiturate Screen,Urine Negative Normal Negative [facility] Comment on above: Performed By: #### U RDS #### [place] [address] [place] Benzodiazepines Screen,Urine Negative Normal Negativ e [facility] Comment on above: Performed By: #### U RDS #### [place] [address] [place] Cannabinoid Screen,Urine Positive High Negative [facility] Comment on above: Result Comment: Thes e are unconfirmed results and should not be used for legal purposes. Drug Cut-Off Concentration: AMPH 1000 ng/mL NORMA 200 ng/mL LUIS 200 ng/mL COCM 300 ng/mL OP 300 ng/mL PCP 25 ng/mL THC 20 ng/mL PERFORMED BY: [place] [address] PATHOLOGIST PROGRAMMING COORDINATOR GARCÍA AZUL M.D. Performed By: #### U RDS #### [facility] [address] Cocaine Screen,Urine Negative Normal Negative [facility] Comment on above: Performed By: #### U RDS #### [address] Opiate Screen,Urine Negative Normal Negative [facility] Comment on above: Performed By: #### U RDS #### [address] Phencyclidine Screen,Urine Negative Normal Negative [facility] Comment on above: Performed By: #### U RDS #### [address] Glucose Glucometer (BldC) [M ass/Vol]Ordered By: Onofre Francis on 09-14-2024 Glucose [Mass/Vol] Capillary blood glucose measurement by glucometer (mass/volume) [facility] Comment on above: Random Glucose Refer ence Range is dependent on time and content of last meal. Glucose of more than 200 mg/dL in a nonstressed, ambulatory subject supports the diagnosis of Diabetes Mellitus. Glucose Poct Glucometerson 0 09-14-2024 Commemt1 Glu2: Cleaned Meter Normal [facility] Comment on above: Result Comment: PERF ORMED BY: [place] [address] PATHOLOGIST PROGRAMMING COORDINATOR GARCÍA AZUL M.D. Performed By: #### G LULS #### Point of Care testing , Glucose [Mass/Vol] 88 mg/dL Normal [facility] Comment on above: Result Comment: Vivian Glucose Reference Range is dependent on time and content of last meal. Glucose of more than 200 mg/dL in a nonstressed, ambulatory subject supports the diagnosis of Diabetes Mellitus. Performed By: #### G LULS #### Point of Care testing , Maximum clot firmness [Lengt h] in Blood by ThromboelastographyOrdered By: Onofre Francis on 09-14-2024 Maximum clot firmness TEG (Bld) [Length] Maximum clot firmness [Length] in Blood by Thromboelastography [facility] Comment on above: See report. Scanned copy available in EMR. No Panel InformationOrdered By: Onofre Francis on 09-14-2024 Bedside Glucose Comment Glu2: cleaned meter [facility] Opiates [Presence] in Urine by Screen methodOrdered By: ADELINA BEDOLLA on 09-14-2024 Opiates Screen Ql (U) Opiates [Presence] in Urine by Screen method Negative [facility] Phencyclidine Screen Ql (U)O rdered By: ADELINA BEDOLLA on 09-14-2024 Phencyclidine Ql (U) Phencyclidine [Presence] in Urine by Screen method Negative [facility] TEG; Platelet Mappingon 08-28 TEG; Platelet Mapping . Normal [facility] Comment on above: Result Comment: See report. Scanned copy available in EMR. PERFORMED BY: [facility] [address] [place] [address] PATHOLOGIST PROGRAMMING COORDINATOR GARCÍA AZUL M.D. Performed By: #### T EG PLT MAPPING ####[facility] [place] [address] [facility] Estimated glomerular filtrat ion rate (GFR) non- Americanon 09-13-2024 GFR/1.73 sq M.predicted among non-blacks MDRD (S/P/Bld) [Vol rate/Area] Estimated glomerular filtration rate (GFR) non- Low >=60 mL/min/1.73 m 2 [facility] Laboratory - Chemistry and C hemistry - challengeon 09-13-2024 Calcium [Mass/Vol] 9.0 mg/dL 8.5-10.1 [facility] Chloride [Moles/Vol] 99 mmol/L 98-107 [facility] CO2 [Moles/Vol] 26.2 mmol/L 21.0-32.0 [facility] Creatinine [Mass/Vol] 2.78 mg/dL High 0.70-1.30 [facility] GFR/1.73 sq M.predicted MDRD (S/P/Bld) [Vol rate/Area] 28 mL/min/{1.73_m2} Low >=60 mL/min/1.73 m 2 [facility] Glucose [Mass/Vol] 108 mg/dL High 74-106 [facility] Potassium [Moles/Vol] 4.4 mmol/L 3.5-5.1 [facility] Sodium [Moles/Vol] 132 mmol/L Low 136-145 [facility] Urea nitrogen [Mass/Vol] 23.0 mg/dL High 7.0-18.0 [facility] Urea nitrogen/Creatinine [Mass ratio] 8.3 mg/mg [facility] Serum or plasma anion gap de terminationon 09-13-2024 Anion gap [Moles/Vol] Serum or plasma an ion gap determination [facility] CT soft tissue neck wo conon 09-03-2024 CT soft tissue neck wo con [facility] [place] [address] CT Scan Report Signed Patient: Sabrina Guevara MR#: [id number] 1733 : 1955 Acct:[id number] Age/Sex: 69 / M ADM Date: 09/03/24 Loc: CT Room: Type: [facility] Attending Dr: Shirley Collins [employer]-C Copies to: Shirley Collins APRN Ordering Provider: Shirley Collins APRN Date of Service: 09/03/24 CT/CT head/brain wo con: I65.21 - Occlusion and stenosis of right carotid artery ([id number]) CT/CT soft tissue neck wo con: I65.21 [...] Dwaine Moreno M.D.09/03/2024 1:35 PM Dictation Location: [place] [address] Transcribed By: ARPIT 09/03/24 1335 Dictated By: Dwaine Moreno II, MD 09/03/24 1325 Signed By: 09/03/24 1335 Normal [facility] Laboratory - Chemistry and C hemistry - challengeon 09-03-2024 Free T4 [Mass/Vol] 0.70 ng/dL Low 0.76-1.46 [facility] Osmolality [Osmolality] 254 mosm/kg Abnormal 280-301 [facility] Comment on above: Performed at: [address] [id number] Director: Brenda Ojeda MD, Phone: [phone] TSH Qn 5.360 m[IU]/L High 0.358-3.740 [facility] Urate [Mass/Vol] 6.1 mg/dL 3.5-7.2 [facility] Sodium (U) [Moles/Vol] 29 mmol/L Low 30-90 [facility] No Panel Informationon 09-03 Urine Osmolality 226 mOsmol/kg . [facility] Comment on above: 24 hr : 300 - 900 Ra ndom: 50 - 1400 After 12hr fluid restriction: >850Performed at: - [facility] [id number] Director: Brenda Ojeda MD, Phone: [phone] Basic Metabolic Panelon Anion gap [Moles/Vol] 6.2 mmol/L Normal 6.0-15.0 [facility] Comment on above: Performed By: #### B MP #### [address] Calcium [Mass/Vol] 8.5 mg/dL Low 8.6-10.3 [facility] Comment on above: Result Comment: PERF ORMED BY: [place] [address] PATHOLOGIST PROGRAMMING COORDINATOR GARCÍA AZUL M.D. Performed By: #### B MP #### [address] Chloride [Moles/Vol] 97 mmol/L Low 98-107 [facility] Comment on above: Performed By: #### B MP #### [address] CO2 [Moles/Vol] 23.5 mmol/L Normal 21.0-31.0 [facility] Comment on above: Performed By: #### B MP #### [address] Creatinine [Mass/Vol] 2.16 mg/dL High 0.70-1.30 [facility] Comment on above: Performed By: #### B MP #### [address] Estimated GFR 32.739 mL/Min Normal [facility] Comment on above: Performed By: #### B MP #### [address] Glucose [Mass/Vol] 82 mg/dL Normal 70-100 [facility] Comment on above: Result Comment: Vivian Glucose Reference Range is dependent on time and content of last meal. Glucose of more than 200 mg/dL in a nonstressed, ambulatory subject supports the diagnosis of Diabetes Mellitus. ADA recommended reference range Performed By: #### B MP #### [address] Potassium [Moles/Vol] 4.7 mmol/L Normal 3.5-5.1 [facility] Comment on above: Performed By: #### B MP #### [address] Sodium [Moles/Vol] 122 mmol/L Off scale low 136-145 [facility] Comment on above: Result Comment: Crit ical Result Called to and read back by: ONOFRE GRANDE at: 09/02/2024 17:42:57 by:[id number] Performed By: #### B MP #### [address] Urea nitrogen [Mass/Vol] 16 mg/dL Normal 7-25 [facility] Comment on above: Performed By: #### B MP #### [address] Basophils Auto (Bld) [#/Vol] Ordered By: Onofre Francis on 09-02-2024 Basophils (Bld) [#/Vol] Automated basoph il count 0.0-0.2 [facility] Basophils/100 WBC Auto (Bld) Ordered By: Onofre Francis on 09-02-2024 Basophils/100 WBC (Bld) Automated basophil % . [facility] Calcium [Mass/volume] in Ser um or PlasmaOrdered By: Onofre Francis on 09-02-2024 Calcium [Mass/Vol] Calcium [Mass/volume ] in Serum or Plasma Low 8.6-10.3 [facility] Carbon dioxide, total [Moles /volume] in Serum or PlasmaOrdered By: Onofre Francis on 09-02-2024 CO2 [Moles/Vol] Carbon dioxide, tota l [Moles/volume] in Serum or Plasma 21.0-31.0 [facility] Chloride [Moles/volume] in S iris or PlasmaOrdered By: Onofre Francis on 09-02-2024 Chloride [Moles/Vol] Chloride [Moles/volume] in Serum or Plasma Low 98-107 [facility] Complete Blood Count Auto Di ffon 09-02-2024 Basophils (Bld) [#/Vol] 0.1 10*3/uL Normal 0.0-0.2 [facility] Comment on above: Result Comment: PERF ORMED BY: [place] [address] PATHOLOGIST PROGRAMMING COORDINATOR GARCÍA AZUL M.D. Performed By: #### C BC #### [address] Basophils/100 WBC (Bld) 1.2 % Normal . [facility] Comment on above: Performed By: #### C BC #### [address] Eosinophils (Bld) [#/Vol] 0.7 10*3/uL High 0.0-0.45 [facility] Comment on above: Performed By: #### C BC #### [address] Eosinophils/100 WBC (Bld) 8.8 % Normal . [facility] Comment on above: Performed By: #### C BC #### [address] Erythrocyte distribution width (RBC) [Ratio] 13.6 % Normal 12.0-14.8 [facility] Comment on above: Performed By: #### C BC #### [address] Hematocrit (Bld) [Volume fraction] 36.8 % Low 38.8-50.0 [facility] Comment on above: Performed By: #### C BC #### [address] Hemoglobin (Bld) [Mass/Vol] 12.9 g/dL Low 13.0-17. 0 [facility] Comment on above: Performed By: #### C BC #### [address] Lymphocytes (Bld) [#/Vol] 1.5 10*3/uL Normal 1.00-4.8 [facility] Comment on above: Performed By: #### C BC #### [address] Lymphocytes/100 WBC (Bld) 18.3 % Normal . [facility] Comment on above: Performed By: #### C BC #### [address] MCH (RBC) [Entitic mass] 33.4 pg Normal 27.5-35.2 [facility] Comment on above: Performed By: #### C BC #### [address] MCV (RBC) [Entitic vol] 95.4 fL Normal 83.5-101 [facility] Comment on above: Performed By: #### C BC #### [address] Mean Corpuscular HGB Conc 35.0 g/dL Normal 32.5-35.6 [facility] Comment on above: Performed By: #### C BC #### [address] Monocytes (Bld) [#/Vol] 0.6 10*3/uL Normal 0.0-0.8 [facility] Comment on above: Performed By: #### C BC #### [address] Monocytes/100 WBC (Bld) 7.6 % Normal . [facility] Comment on above: Performed By: #### C BC #### [address] Neutrophils (Bld) [#/Vol] 5.3 10*3/uL Normal 1.8-7.7 [facility] Comment on above: Performed By: #### C BC #### [address] Neutrophils/100 WBC (Bld) 64.1 % Normal . [facility] Comment on above: Performed By: #### C BC #### [address] NRBC% 0.0 /100{WBC} Normal 0-0.5 [facility] Comment on above: Performed By: #### C BC #### [address] Platelet mean volume (Bld) [Entitic vol] 7.4 fL Normal 6.6-10.1 [facility] Comment on above: Performed By: #### C BC #### [address] Platelets (Bld) [#/Vol] 226 10*3/uL Normal 150-450 [facility] Comment on above: Performed By: #### C BC #### [address] RBC (Bld) [#/Vol] 3.85 10*6/uL Low 3.90-5.60 [facility] Comment on above: Performed By: #### C BC #### [address] WBC (Bld) [#/Vol] 8.3 10*3/uL Normal 4.1-10.5 [facility] Comment on above: Performed By: #### C BC #### [place] [address] [place] Creatinine [Mass/volume] in Serum or PlasmaOrdered By: Onofre Francis on 09-02-2024 Creatinine [Mass/Vol] Creatinine [Mass/volume] in Serum or Plasma High 0.70-1.30 [facility] ECG 12 lead ECGon 09-02-2024 ECG 12 lead ECG [facility] [place] [address] Electrocardiograph Report Signed Patient: Sabrina Guevara MR#: [id number] 1733 : 1955 Acct:[id number] Age/Sex: 69 / M ADM Date: 09/02/24 Loc: PS Room: Type: [facility] Attending Dr: Onfore Francis MD Ordering Provider: Onofre Francis MD [...] Hector MD 0 09/03/24 1525 Normal [facility] Eosinophils Auto (Bld) [#/Vo l]Ordered By: Onofre Francis on 09-02-2024 Eosinophils (Bld) [#/Vol] Automated eosi nophil count High 0.0-0.45 [facility] Eosinophils/100 WBC Auto (Bl d)Ordered By: Onofre Francis on 09-02-2024 Eosinophils/100 WBC (Bld) Automated eosi nophil % . [facility] Erythrocyte distribution wid th Auto (RBC) [Ratio]Ordered By: Onofre Francis on 09-02-2024 Erythrocyte distribution width (RBC) [Ratio] Erythrocyte distribution width [Ratio] by Automated count 12.0-14.8 [facility] Glucose [Mass/volume] in Ser um or PlasmaOrdered By: Onofre Francis on 09-02-2024 Glucose [Mass/Vol] Glucose [Mass/volume ] in Serum or Plasma 70-100 [facility] Comment on above: ADA recommended refe rence rangeRandom Glucose Reference Range is dependent on time and content of last meal. Glucose of more than 200 mg/dL in a nonstressed, ambulatory subject supports the diagnosis of Diabetes Mellitus. Hematocrit Auto (Bld) [Volum e fraction]Ordered By: Onofre Francis on 09-02-2024 Hematocrit (Bld) [Volume fraction] Hematocrit [Volume Fraction] of Blood by Automated count Low 38.8-50.0 [facility] Hemoglobin [Mass/volume] in BloodOrdered By: Onofre Francis on 09-02-2024 Hemoglobin (Bld) [Mass/Vol] Hemoglobin [Mass/volume] in Blood Low 13.0-17.0 [facility] Leukocytes [#/volume] correc mitchell for nucleated erythrocytes in Blood by Automated counOrdered By: Onofre Fracnis on 09-02-2024 WBC corrected for nucl RBC Auto (Bld) [#/Vol] Leukocytes [#/volume] corrected for nucleated erythrocytes in Blood by Automated coun 4.1-10.5 [facility] Lymphocytes Auto (Bld) [#/Vo l]Ordered By: Onofre Francis on 09-02-2024 Lymphocytes (Bld) [#/Vol] Lymphocytes [#/volume] in Blood by Automated count 1.00-4.8 [facility] Lymphocytes/100 WBC Auto (Bl d)Ordered By: Onofre Francis on 09-02-2024 Lymphocytes/100 WBC (Bld) Lymphocytes/10 0 leukocytes in Blood by Automated count . [facility] MCH Auto (RBC) [Entitic mass ]Ordered By: Onofre Francis on 09-02-2024 MCH (RBC) [Entitic mass] MCH [Entitic ma ss] by Automated count 27.5-35.2 [facility] MCHC Auto (RBC) [Mass/Vol]Or dered By: Onofre Francis on 09-02-2024 MCHC (RBC) [Mass/Vol] MCHC [Mass/volume] by Automated count 32.5-35.6 [facility] MCV Auto (RBC) [Entitic vol] Ordered By: Onofre Francis on 09-02-2024 MCV (RBC) [Entitic vol] MCV [Entitic vol ume] by Automated count 83.5-101 [facility] Monocytes Auto (Bld) [#/Vol] Ordered By: Onofre Francis on 09-02-2024 Monocytes (Bld) [#/Vol] Automated blood monocyte count 0.0-0.8 [facility] Monocytes/100 WBC Auto (Bld) Ordered By: Onofre Francis on 09-02-2024 Monocytes/100 WBC (Bld) Automated monocyte % . [facility] Neutrophils Auto (Bld) [#/Vo l]Ordered By: Onofre Francis on 09-02-2024 Neutrophils (Bld) [#/Vol] Neutrophils [#/volume] in Blood by Automated count 1.8-7.7 [facility] Neutrophils/100 WBC Auto (Bl d)Ordered By: Onofre Francis on 09-02-2024 Neutrophils/100 WBC (Bld) Automated neut rophil % . [facility] No Panel InformationOrdered By: Onofre Francis on 09-02-2024 Estimated GFR (CKD-EPI) 32.739 mL/Min [facility] Creatinine Clearance (Chem N/A [facility] Nucleated erythrocytes [Pres ence] in Blood by Automated countOrdered By: Onofre Francis on 09-02-2024 Nucleated RBC Auto Ql (Bld) Nucleated erythrocytes [Presence] in Blood by Automated count 0-0.5 [facility] Platelet mean volume Auto (B ld) [Entitic vol]Ordered By: Onofre Francis on 09-02-2024 Platelet mean volume (Bld) [Entitic vol] Platelet mean volume [Entitic volume] in Blood by Automated count 6.6-10.1 [facility] Platelets Auto (Bld) [#/Vol] Ordered By: Onofre Francis on 09-02-2024 Platelets (Bld) [#/Vol] Platelets [#/vol ume] in Blood by Automated count 150-450 [facility] Potassium [Moles/volume] in Serum or PlasmaOrdered By: Onofre Francis on 09-02-2024 Potassium [Moles/Vol] Potassium [Moles/volume] in Serum or Plasma 3.5-5.1 [facility] RBC Auto (Bld) [#/Vol]Ordere d By: Onofre Francis on 09-02-2024 RBC (Bld) [#/Vol] Erythrocytes [#/volume] in Blood by Automated count Low 3.90-5.60 [facility] Serum or plasma anion gap de terminationOrdered By: Onofre Francis on 09-02-2024 Anion gap [Moles/Vol] Serum or plasma an ion gap determination 6.0-15.0 [facility] Sodium [Moles/volume] in Ser um or PlasmaOrdered By: Onofre Francis on 09-02-2024 Sodium [Moles/Vol] Sodium [Moles/volume ] in Serum or Plasma Critically low 136-145 [facility] Comment on above: Critical Result Call ed to and read back by: ONOFRE GRANDE at: 09/02/2024 17:42:57 by:[id number] Urea nitrogen [Mass/volume] in Serum or PlasmaOrdered By: Onofre Francis on 09-02-2024 Urea nitrogen [Mass/Vol] Urea nitrogen [Mass/volume] in Serum or Plasma 7- [facility] WBC Auto (Bld) [#/Vol]Ordere d By: Onofre Francis on 09-02-2024 WBC (Bld) [#/Vol] Leukocytes [#/volume ] in Blood by Automated count 4.1-10.5 [facility] Blood Urea Nitrogenon 2024 Urea nitrogen [Mass/Vol] 14 mg/dL Normal 02-18 [facility] Comment on above: Performed By: #### B UN, CREAT ####[facility] [place] [address] [place] Creatinineon 08-30-2024 Creatinine [Mass/Vol] 2.19 mg/dL High 0.70-1.30 [facility] Comment on above: Performed By: #### B UN, CREAT ####[facility] [place] [address] [place] Creatinine Clr Calc Pharmacy 33.60 Normal [facility] Comment on above: Result Comment: PERF ORMED BY: [facility] [address] [place] [address] PATHOLOGIST PROGRAMMING COORDINATOR GARCÍA AZUL M.D. Performed By: #### B UN, CREAT ####[facility] [place] [id number] [facility] Estimated GFR 32.202 mL/Min Normal [facility] Comment on above: Performed By: #### B ELAN HECTOR ####[facility] [address] [place] [id number] [facility] Creatinine [Mass/volume] in Serum or PlasmaOrdered By: Onofre Francis on 08-30-2024 Creatinine [Mass/Vol] Creatinine [Mass/volume] in Serum or Plasma High 0.70-1.30 [facility] No Panel InformationOrdered By: Onofre Francis on 08-30-2024 Estimated GFR (CKD-EPI) 32.202 mL/Min [facility] Creatinine Clearance (Chem 33.60 [facility] Urea nitrogen [Mass/volume] in Serum or PlasmaOrdered By: Onofre Francis on 08-30-2024 Urea nitrogen [Mass/Vol] Urea nitrogen [Mass/volume] in Serum or Plasma 7-25 [facility] Basophils Auto (Bld) [#/Vol] on 07-07-2024 Basophils (Bld) [#/Vol] Automated basoph il count 0.0-0.1 [facility] Basophils/100 WBC Auto (Bld) on 07-07-2024 Basophils/100 WBC (Bld) Automated basophil % 0. 2-2.0 [facility] Cholesterol in LDL Calc [Mas s/Vol]on 07-07-2024 Cholesterol in LDL [Mass/Vol] Cholesterol in LDL [Mass/volume] in Serum or Plasma by calculation [facility] Comment on above: <100 mg/dl [id number] 0-129 mg/dl NEAR OR ABOVE [id number] mg/dl BORDERLINE [id number] mg/dl HIGH>190 mg/dl VERY HIGH Cholesterol in VLDL Calc [Ma ss/Vol]on 07-07-2024 Cholesterol in VLDL [Mass/Vol] Cholesterol in VLDL [Mass/volume] in Serum or Plasma by calculation [facility] Eosinophils/100 WBC Auto (Bl d)on 07-07-2024 Eosinophils/100 WBC (Bld) Automated eosi nophil % High 0.9-7.0 [facility] Erythrocyte distribution wid th Auto (RBC) [Ratio]on 07-07-2024 Erythrocyte distribution width (RBC) [Ratio] Erythrocyte distribution width [Ratio] by Automated count 11.0-15.0 [facility] Estimated glomerular filtrat ion rate (GFR) non- Americanon 07-07-2024 GFR/1.73 sq M.predicted among non-blacks MDRD (S/P/Bld) [Vol rate/Area] Estimated glomerular filtration rate (GFR) non- Low >=60 mL/min/1.73 m 2 [facility] Globulin Calc (S) [Mass/Vol] on 07-07-2024 Globulin (S) [Mass/Vol] Serum globulin measurement by calculation (mass/volume) [facility] Hematocrit Auto (Bld) [Volum e fraction]on 07-07-2024 Hematocrit (Bld) [Volume fraction] Hematocrit [Volume Fraction] of Blood by Automated count Low 42.0-54.0 [facility] Hemoglobin [Mass/volume] in Bloodon 07-07-2024 Hemoglobin (Bld) [Mass/Vol] Hemoglobin [Mass/volume] in Blood Low 14.0-18.0 [facility] Laboratory - Chemistry and C hemistry - challengeon 07-07-2024 Albumin [Mass/Vol] 3.5 g/dL 3.4-5.0 [facility] ALP [Catalytic activity/Vol] 68 U/L 46-116 [facility] ALT [Catalytic activity/Vol] 19 U/L 16-63 [facility] AST [Catalytic activity/Vol] 22 U/L 15-37 [facility] Bilirubin [Mass/Vol] 0.5 mg/dL 0.2-1.0 [facility] Calcium [Mass/Vol] 8.6 mg/dL 8.5-10.1 [facility] Chloride [Moles/Vol] 90 mmol/L Low 98-107 [facility] Cholesterol [Mass/Vol] 114 mg/dL <=200 [facility] Cholesterol in HDL [Mass/Vol] 34 mg/dL Low 40-60 [facility] Comment on above: > or =60 mg/dl - LOW CARDIOVASCULAR RISK<40 mg/dl - HIGH CARDIOVASCULAR RISK CO2 [Moles/Vol] 25.0 mmol/L 21.0-32.0 [facility] Creatinine [Mass/Vol] 2.52 mg/dL High 0.70-1.30 [facility] GFR/1.73 sq M.predicted MDRD (S/P/Bld) [Vol rate/Area] 31 mL/min/{1.73_m2} Low >=60 mL/min/1.73 m 2 [facility] Glucose [Mass/Vol] 89 mg/dL 74-106 [facility] Potassium [Moles/Vol] 4.8 mmol/L 3.5-5.1 [facility] Protein [Mass/Vol] 7.0 g/dL 6.4-8.2 [facility] Sodium [Moles/Vol] 122 mmol/L Critically low 136-145 [facility] Comment on above: RESULTS CALLED TO LENO MCKNIGHT RMA Triglyceride [Mass/Vol] 119 mg/dL <=150 [facility] Urea nitrogen [Mass/Vol] 18.0 mg/dL 7.0-18.0 [facility] Urea nitrogen/Creatinine [Mass ratio] 7.1 mg/mg [facility] Laboratory - Hematology and Cell countson 07-07-2024 Immature granulocytes/100 WBC (Bld) 0.4 % 0.0-0.5 [facility] Leukocytes [#/volume] correc mitchell for nucleated erythrocytes in Blood by Automated counon 07-07-2024 WBC corrected for nucl RBC Auto (Bld) [#/Vol] Leukocytes [#/volume] corrected for nucleated erythrocytes in Blood by Automated coun 4.0-11.0 [facility] Lymphocytes Auto (Bld) [#/Vo l]on 07-07-2024 Lymphocytes (Bld) [#/Vol] Lymphocytes [#/volume] in Blood by Automated count 1.2-3.8 [facility] Lymphocytes/100 WBC Auto (Bl d)on 07-07-2024 Lymphocytes/100 WBC (Bld) Lymphocytes/10 0 leukocytes in Blood by Automated count Low 20.5-60.0 [facility] MCH Auto (RBC) [Entitic mass ]on 07-07-2024 MCH (RBC) [Entitic mass] MCH [Entitic ma ss] by Automated count 25.9-34.0 [facility] MCHC Auto (RBC) [Mass/Vol]on 07-07-2024 MCHC (RBC) [Mass/Vol] MCHC [Mass/volume] by Automated count High 29.9-35.2 [facility] MCV Auto (RBC) [Entitic vol] on 07-07-2024 MCV (RBC) [Entitic vol] MCV [Entitic vol ume] by Automated count 80.0-94.0 [facility] Monocytes Auto (Bld) [#/Vol] on 07-07-2024 Monocytes (Bld) [#/Vol] Automated blood monocyte count 0.3-0.8 [facility] Monocytes/100 WBC Auto (Bld) on 07-07-2024 Monocytes/100 WBC (Bld) Automated monocyte % 1. 7-12.0 [facility] Neutrophils Auto (Bld) [#/Vo l]on 07-07-2024 Neutrophils (Bld) [#/Vol] Neutrophils [#/volume] in Blood by Automated count 1.4-6.5 [facility] Neutrophils/100 WBC Auto (Bl d)on 07-07-2024 Neutrophils/100 WBC (Bld) Automated neut rophil % 43.0-75.0 [facility] No Panel Informationon 07-07 Eosinophils # (Auto) 0.8 10 3/uL High 0.0-0.7 [facility] Immature Granulocyte # (Auto) 0.03 10 3/uL 0.00-0.03 [facility] Prostate Specific Antigen Screen 0.82 ng/mL <=4.00 [facility] Platelet mean volume Auto (B ld) [Entitic vol]on 07-07-2024 Platelet mean volume (Bld) [Entitic vol] Platelet mean volume [Entitic volume] in Blood by Automated count Low 9.5-13.5 [facility] Platelets Auto (Bld) [#/Vol] on 07-07-2024 Platelets (Bld) [#/Vol] Platelets [#/vol ume] in Blood by Automated count 150-450 [facility] RBC Auto (Bld) [#/Vol]on RBC (Bld) [#/Vol] Erythrocytes [#/volume] in Blood by Automated count Low 4.70-6.10 [facility] Serum or plasma albumin/glob ulin mass ratioon 07-07-2024 Albumin/Globulin [Mass ratio] Serum or plasma albumin/globulin mass ratio [facility] Serum or plasma anion gap de terminationon 07-07-2024 Anion gap [Moles/Vol] Serum or plasma an ion gap determination [facility] Serum or plasma total choles terol/high density lipoprotein (HDL) cholesterol mass edith 07-07-2024 Cholesterol.total/Cholestero l in HDL [Mass ratio] Serum or plasma total cholesterol/high density lipoprotein (HDL) cholesterol mass rat [facility] Comment on above: 3.3 - 4.4 LOW RISK4. 4 - 7.1 AVERAGE RISK7.1 - 11.0 MODERATE RISK>11.0 HIGH RISK Erythrocyte distribution wid th Auto (RBC) [Ratio]on 05-17-2024 Erythrocyte distribution width (RBC) [Ratio] 12.5 % 11.0-15.0 [facility] Estimated glomerular filtrat ion rate (GFR) non- Americanon 05-17-2024 GFR/1.73 sq M.predicted among non-blacks MDRD (S/P/Bld) [Vol rate/Area] 27 mL/min/{1.73_m2} Low >=60 mL/min/1.73 m 2 [facility] Hematocrit Auto (Bld) [Volum e fraction]on 05-17-2024 Hematocrit (Bld) [Volume fraction] 36.5 % Low 42.0-54.0 [facility] Hemoglobin [Mass/volume] in Bloodon 05-17-2024 Hemoglobin (Bld) [Mass/Vol] 13.0 g/dL Low 14.0-18. 0 [facility] Iron binding capacity [Mass/ volume] in Serum or Plasmaon 05-17-2024 Iron binding capacity [Mass/Vol] 177.0 ug/dL Low 250.0-450.0 [facility] Iron saturation [Mass Fracti on] in Serum or Plasmaon 05-17-2024 Iron saturation [Mass fraction] 35.0 % [facility] Laboratory - Chemistry and C hemistry - challengeon 05-17-2024 Albumin [Mass/Vol] 3.2 g/dL Low 3.4-5.0 [facility] Calcium [Mass/Vol] 8.4 mg/dL Low 8.5-10.1 [facility] Chloride [Moles/Vol] 93 mmol/L Low 98-107 [facility] CO2 [Moles/Vol] 24.1 mmol/L 21.0-32.0 [facility] Creatinine [Mass/Vol] 2.43 mg/dL High 0.70-1.30 [facility] Ferritin [Mass/Vol] 297.0 ng/mL 26.0-388.0 [facility] GFR/1.73 sq M.predicted MDRD (S/P/Bld) [Vol rate/Area] 33 mL/min/{1.73_m2} Low >=60 mL/min/1.73 m 2 [facility] Glucose [Mass/Vol] 95 mg/dL 74-106 [facility] Iron [Mass/Vol] 62.0 ug/dL Low 65.0-175.0 [facility] Magnesium [Mass/Vol] 2.0 mg/dL 1.8-2.4 [facility] Potassium [Moles/Vol] 4.7 mmol/L 3.5-5.1 [facility] Sodium [Moles/Vol] 128 mmol/L Low 136-145 [facility] Urate [Mass/Vol] 5.6 mg/dL 3.5-7.2 [facility] Urea nitrogen [Mass/Vol] 17.0 mg/dL 7.0-18.0 [facility] Urea nitrogen/Creatinine [Mass ratio] 7.0 mg/mg [facility] Bilirubin Ql (U) Negative NEGATIVE [facility] Glucose (U) [Mass/Vol] Negative NEGATIVE [facility] Ketones Ql (U) Negative NEGATIVE [facility] pH (U) 6.0 [pH] 5.0-9.0 [facility] Specific gravity (U) [Rel density] <=1.005 Abnormal 1.005-1.025 [facility] Urobilinogen Qn (U) 0.2 {Edgar'U}/dL 0.2-1.0 [facility] Laboratory - Specimen inform ationon 05-17-2024 Appearance (U) CLEAR CLEAR [facility] Color (U) LT. YELLOW YELLOW [facility] Laboratory - Urinalysison Leukocyte esterase Test strip Ql (U) Negative NEGATIVE [facility] Mucus Ql (Urine sed) NONE SEEN NONE SEEN [facility] Nitrite Ql (U) Negative NEGATIVE [facility] Protein (U) [Mass/Vol] 14.8 mg/dL High <=11.9 [facility] Protein Ql (U) Negative NEG/TRACE [facility] Leukocytes [#/volume] correc mitchell for nucleated erythrocytes in Blood by Automated counon 05-17-2024 WBC corrected for nucl RBC Auto (Bld) [#/Vol] 8.6 10 3/uL 4.0-11.0 [facility] MCH Auto (RBC) [Entitic mass ]on 05-17-2024 MCH (RBC) [Entitic mass] 33.2 pg 25.9-34.0 [facility] MCHC Auto (RBC) [Mass/Vol]on 05-17-2024 MCHC (RBC) [Mass/Vol] 35.6 g/dL High 29.9-35.2 [facility] MCV Auto (RBC) [Entitic vol] on 05-17-2024 MCV (RBC) [Entitic vol] 93.1 fL 80.0-94.0 [facility] No Panel Informationon 05-17 25-Hydroxy Vitamin D Total 81.1 ng/mL [facility] Comment on above: <20 ng/mL Vit D defi cient20-<30 ng/mL Vit D [id number] ng/mL Vit D sufficient>100 ng/mL Potential Toxicity Parathyroid Hormone (Intact) 51 pg/mL 15-65 [facility] Comment on above: Performed at: [facility] [address] [id number] Director: Yakov Sheikh PhD, Phone: [phone] Phosphorus Level 3.4 mg/dL 2.6-4.7 [facility] Urine Bacteria TRACE #/HPF Abnormal NONE SEEN [facility] Urine Culture Reflexed NO [facility] Urine Occult Blood Negative NEGATIVE [facility] Urine Other Casts NONE SEEN #/LPF NONE SEEN [facility] Urine Other Crystals None Seen #/HPF None Seen [facility] Urine Random Creatinine 40.25 mg/dL 20.0 0-300.0 0 [facility] Urine RBC NONE SEEN #/HPF 0-2 [facility] Urine Squamous Epithelial Cells RARE #/LPF NONE/RARE [facility] Urine WBC NONE SEEN #/HPF NONE SEEN [facility] Platelet mean volume Auto (B ld) [Entitic vol]on 05-17-2024 Platelet mean volume (Bld) [Entitic vol] 9.1 fL Low 9.5-13.5 [facility] Platelets Auto (Bld) [#/Vol] on 05-17-2024 Platelets (Bld) [#/Vol] 283 10 3/uL 150-450 [facility] RBC Auto (Bld) [#/Vol]on RBC (Bld) [#/Vol] 3.92 10 6/uL Low 4.70-6.10 [facility] Serum or plasma anion gap de terminationon 05-17-2024 Anion gap [Moles/Vol] 15.6 mmol/L [facility] Urine protein/creatinine rat ioon 05-17-2024 Protein/Creatinine (U) [Ratio] 0.37 [facility] Erythrocyte distribution wid th Auto (RBC) [Ratio]on 01-05-2024 Erythrocyte distribution width (RBC) [Ratio] 12.3 % 11.0-15.0 [facility] Estimated glomerular filtrat ion rate (GFR) non- Americanon 01-05-2024 GFR/1.73 sq M.predicted among non-blacks MDRD (S/P/Bld) [Vol rate/Area] 26 mL/min/{1.73_m2} >=60 [facility] Hematocrit Auto (Bld) [Volum e fraction]on 01-05-2024 Hematocrit (Bld) [Volume fraction] 34.2 % 42.0-54.0 [facility] Hemoglobin [Mass/volume] in Bloodon 01-05-2024 Hemoglobin (Bld) [Mass/Vol] 12.3 g/dL 14.0-18. 0 [facility] Laboratory - Chemistry and C hemistry - challengeon 01-05-2024 Albumin [Mass/Vol] 3.9 g/dL 3.4-5.0 [facility] Calcium [Mass/Vol] 8.9 mg/dL 8.5-10.1 [facility] Chloride [Moles/Vol] 91 mmol/L 98-107 [facility] CO2 [Moles/Vol] 24.4 mmol/L 21.0-32.0 [facility] Creatinine [Mass/Vol] 2.46 mg/dL 0.70-1.30 [facility] Ferritin [Mass/Vol] 275.0 ng/mL 26.0-388.0 [facility] GFR/1.73 sq M.predicted MDRD (S/P/Bld) [Vol rate/Area] 32 mL/min/{1.73_m2} >=60 [facility] Glucose [Mass/Vol] 67 mg/dL 74-106 [facility] Magnesium [Mass/Vol] 2.0 mg/dL 1.8-2.4 [facility] Potassium [Moles/Vol] 4.9 mmol/L 3.5-5.1 [facility] Sodium [Moles/Vol] 124 mmol/L 136-145 [facility] Comment on above: RESULTS CALLED TO ANABELL VILLANUEVA CALLED TO []@BY Gil Stevenson MLT at 1636 Urate [Mass/Vol] 6.8 mg/dL 3.5-7.2 [facility] Urea nitrogen [Mass/Vol] 21.0 mg/dL 7.0-18.0 [facility] Urea nitrogen/Creatinine [Mass ratio] 8.5 mg/mg [facility] Bilirubin Ql (U) Negative NEGATIVE [facility] Glucose (U) [Mass/Vol] Negative NEGATIVE [facility] Ketones Ql (U) Negative NEGATIVE [facility] pH (U) 6.0 [pH] 5.0-9.0 [facility] Specific gravity (U) [Rel density] <=1.005 1.005-1.025 [facility] Urobilinogen Qn (U) 1.0 {Edgar'U}/dL 0.2-1.0 [facility] Laboratory - Specimen inform ationon 01-05-2024 Appearance (U) CLEAR CLEAR [facility] Color (U) LT. YELLOW YELLOW [facility] Laboratory - Urinalysison Leukocyte esterase Test strip Ql (U) Negative NEGATIVE [facility] Mucus Ql (Urine sed) NONE SEEN NONE SEEN [facility] Nitrite Ql (U) Negative NEGATIVE [facility] Protein (U) [Mass/Vol] 13.4 mg/dL <=11.9 [facility] Protein Ql (U) Negative NEG/TRACE [facility] Leukocytes [#/volume] correc mitchell for nucleated erythrocytes in Blood by Automated counon 01-05-2024 WBC corrected for nucl RBC Auto (Bld) [#/Vol] 7.8 10 3/uL 4.0-11.0 [facility] MCH Auto (RBC) [Entitic mass ]on 01-05-2024 MCH (RBC) [Entitic mass] 33.1 pg 25.9-34.0 [facility] MCHC Auto (RBC) [Mass/Vol]on 01-05-2024 MCHC (RBC) [Mass/Vol] 36.0 g/dL 29.9-35.2 [facility] MCV Auto (RBC) [Entitic vol] on 01-05-2024 MCV (RBC) [Entitic vol] 91.9 fL 80.0-94.0 [facility] No Panel Informationon 01-04 25-Hydroxy Vitamin D Total 77.4 ng/mL [facility] Comment on above: <20 ng/mL Vit D defi cient20-<30 ng/mL Vit D nzdyynumiabn60-617 ng/mL Vit D sufficient>100 ng/mL Potential Toxicity Parathyroid Hormone (Intact) 43 pg/mL 15-65 [facility] Comment on above: Performed at: [facility] [address] [id number] Director: Yakov Sheikh PhD, Phone: [phone] Phosphorus Level 3.3 mg/dL 2.6-4.7 [facility] Urine Bacteria NONE SEEN #/HPF NONE SEEN [facility] Urine Occult Blood Negative NEGATIVE [facility] Urine Other Casts NONE SEEN #/LPF NONE SEEN [facility] Urine Other Crystals None Seen #/HPF None Seen [facility] Urine Random Creatinine 52.39 mg/dL 20.0 0-300.0 0 [facility] Urine RBC 0-2 #/HPF 0-2 [facility] Urine Squamous Epithelial Cells NONE SEEN #/LPF NONE/RARE [facility] Urine WBC 0-2 #/HPF NONE SEEN [facility] Platelet mean volume Auto (B ld) [Entitic vol]on 01-05-2024 Platelet mean volume (Bld) [Entitic vol] 9.3 fL 9.5-13.5 [facility] Platelets Auto (Bld) [#/Vol] on 01-05-2024 Platelets (Bld) [#/Vol] 211 10 3/uL 150-450 [facility] RBC Auto (Bld) [#/Vol]on RBC (Bld) [#/Vol] 3.72 10 6/uL 4.70-6.10 [facility] Serum or plasma anion gap de terminationon 01-05-2024 Anion gap [Moles/Vol] 13.5 mmol/L [facility] Urine protein/creatinine rat ioon 01-05-2024 Protein/Creatinine (U) [Ratio] 0.26 [facility] Consent for Procedure/Surger yon 09-15-2023 Consent for Procedure/Surgery [id number]#1 .00TIFF [facility] Ambulatory Visit Summaryon 0 09-12-2023 Ambulatory [...] BRIDGES, Ada Morris Where: [facility] Urology Office/Clinic Noteon 09-12-2023 Urology Office/Clinic Note Chief Complai nt Cysto HPI Staff Sinan is a 68 [...] of kidney (terminal)) CT AP wo Con @[facility] 08/04/23 - left atrophic kidney 07/08/23 [...] urothelial ca. 7. Aspirin long-term use (Z79.82: half-way (current) use of aspirin) Aspirin 81mg. [1] Follow-up With When Contact Information Rodger BRIDGES, Ada Morris, URL, [facility] [address] [facility], [place] [address] [phone] Additional Instructions: 6 mos (new med) Patient Education Cystoscopy Humera Farah, personally scribed for Dr. Soares on 09/12/2023 08:09:10. . Documentation recorded by the scribHumera lewis, accurately reflects the services(s) I performed and decisions made by me. Authenticated by Dr. Soares (more content not included)... [facility] Comment on above: Result Comment: Elec tronically Signed By: Ada Soares MD\.br\Date and Time Signed: 09/12/23 08:18 EST\.br\Electronically Co-Signed By: Humera Jones\.br\Date and Time Co-Signed: 09/12/23 08:09 EST Physician Referralon 024 Physician Referral [id number] .00TIFF [facility] Screenson 09-02-2023 Screens [id number]# 1.00TIFF [facility] Screens [id number]# 1.00TIFF [facility] Ambulatory Visit Summaryon 0 08-27-2023 Ambulatory [...] including vitamins, herbs, eye drops, creams, and drkt-mce-oogiwim medicines. ? Any problems you or family [...] tells you to take them. ? Taking zgll-pme-wriszjf medicines, vitamins, herbs, and supplements. Tests You may have an exam or testing, such as: ? X-rays of the bladder, urethra, or kidneys. ? CT scan of the abdome (more content not included)... [facility] Patient Educationon 08-27-19 Patient Education Nephrology [...] Spinach (cooked), rhubarb, beets, sweet potatoes, and Fijian chard. ? Peanuts. ? Potato chips, iraqi fries, and baked potatoes with skin on. ? Nuts and nut products. ? Chocolate. ? If you regularly take a diuretic medicine, make sure to eat at least 1 or 2 servings of fruits or vegetables that are high in potassium each day. These include: ? Avocado. ? Banana. ? Bulloch, prune, carrot, or tomato juice. ? Baked [...] fish oil, or vitamin B6. ? Take glfb-swj-qboyijz and prescription medicines only as told by your health care provider. These include supplements. What foods sh (more content not included)... [facility] Amphetamine Screen Ql (U)Ord ered By: Sixto Dobson on 08-05-2023 Amphetamines Ql (U) Negative Negative [facility] Barbiturates [Presence] in U rine by Screen methodOrdered By: Sixto Dobson on 08-05-2023 Barbiturates Screen Ql (U) Negative Negative [facility] Benzodiazepines Screen Ql (U )Ordered By: Sixto Dobson on 08-05-2023 Benzodiazepines Ql (U) Negative Negative [facility] Benzoylecgonine [Presence] i n Urine by Screen methodOrdered By: Sixto Dobson on 08-05-2023 Benzoylecgonine Screen Ql (U) Negative Negative [facility] Cannabinoids [Presence] in U rine by Screen methodOrdered By: Sixto Dobson on 08-05-2023 Cannabinoids Screen Ql (U) Positive Negative [facility] Comment on above: These are unconfirme d results and should not be used for legal purposes. Drug Cut-Off Concentration: AMPH 1000 ng/mL NORMA 200 ng/mL LUIS 200 ng/mL COCM 300 ng/mL OP 300 ng/mL PCP 25 ng/mL THC 20 ng/mL Opiates [Presence] in Urine by Screen methodOrdered By: Sixto Dobson on 08-05-2023 Opiates Screen Ql (U) Negative Negative [facility] Phencyclidine Screen Ql (U)O rdered By: Sixto Dobson on 08-05-2023 Phencyclidine Ql (U) Negative Negative [facility] CT LUNG CANCER SCREENINGon 0 [...] by: ADELINA BISHOP Date: 2021-12-08 11:21 Normal [facility] Vital Signs Date Time Vital Sign Value Performing Clinician Facility 09-15-2024 11:57-0500 Body temperature 98.2 [degF] Jeremy Lam DO Work Phone: [facility] 09-15-2024 11:57-0500 Diastolic blood pressure 56 mm[Hg] Jeremy Lam DO Work Phone: [facility] 09-15-2024 11:57-0500 Heart rate 50 /min Jeremy Ball DO Work Phone: [facility] 09-15-2024 11:57-0500 Respiratory rate 18 /min Jeremy Ball DO Work Phone: [facility] 09-15-2024 11:57-0500 SaO2% (BldA) [Mass fraction] 98 % Jeremy Ball DO Work Phone: [facility] 09-15-2024 11:57-0500 Systolic blood pressure 106 mm[Hg] Jeremy Ball DO Work Phone: [facility] 09-14-2024 15:33-0500 Inhaled oxygen flow rate 8 L/min Jeremy Ball DO Work Phone: [facility] 09-14-2024 12:05-0500 Body height 182.88 cm Jeremy Ball DO Work Phone: [facility] 09-14-2024 12:05-0500 Body weight 75.4 kg Jeremy Ball DO Work Phone: [facility] 09-01-2024 10:13-0500 Body height 182.88 cm Jeremy Ball DO Work Phone: [facility] 09-01-2024 10:13-0500 Body mass index (BMI) [Ratio] 21.7 kg/m2 Jeremy Ball DO Work Phone: [facility] 09-01-2024 10:13-0500 Body temperature 98.4 [degF] Jeremy Ball DO Work Phone: [facility] 09-01-2024 10:13-0500 Body weight 72.57 kg Jeremy Ball DO Work Phone: [facility] 09-01-2024 10:13-0500 Diastolic blood pressure 58 mm[Hg] Jeremy Ball DO Work Phone: [facility] 09-01-2024 10:13-0500 Heart rate 90 /min Jeremy Ball DO Work Phone: [facility] 09-01-2024 10:13-0500 SaO2% (BldA) [Mass fraction] 98 % Jeremy Ball DO Work Phone: [facility] 09-01-2024 10:13-0500 Systolic blood pressure 110 mm[Hg] Jeremy Ball DO Work Phone: [facility] 08-30-2024 12:48-0500 Diastolic blood pressure 76 mm[Hg] Jeremy Ball DO Work Phone: [facility] 08-30-2024 12:48-0500 Heart rate 58 /min Jeremy Ball DO Work Phone: [facility] 08-30-2024 12:48-0500 Respiratory rate 16 /min Jeremy Ball DO Work Phone: [facility] 08-30-2024 12:48-0500 SaO2% (BldA) [Mass fraction] 99 % Jeremy Ball DO Work Phone: [facility] 08-30-2024 12:48-0500 Systolic blood pressure 136 mm[Hg] Jeremy Ball DO Work Phone: [facility] 08-30-2024 12:18-0500 Inhaled oxygen flow rate 3 L/min Jeremy Ball DO Work Phone: [facility] 08-30-2024 09:14-0500 Body height 182.88 cm Jeremy Ball DO Work Phone: [facility] 08-30-2024 09:14-0500 Body weight 72.57 kg Jeremy Ball DO Work Phone: [facility] 08-26-2024 11:11-0500 Body height 182.88 cm [facility] 08-26-2024 11:11-0500 Body mass index (BMI) [Ratio] 21.7 kg/m2 [facility] 08-26-2024 11:11-0500 Body temperature 97.8 [degF] [facility] 08-26-2024 11:11-0500 Body weight 72.57 kg [facility] 08-26-2024 11:11-0500 Diastolic blood pressure 68 mm[Hg] [facility] 08-26-2024 11:11-0500 Heart rate 63 /min [facility] 08-26-2024 11:11-0500 Respiratory rate 16 /min [facility] 08-26-2024 11:11-0500 SaO2% (BldA) [Mass fraction] 97 % [facility] 08-26-2024 11:11-0500 Systolic blood pressure 116 mm[Hg] [facility] 07-12-2024 10:04-0500 Body height 182.88 cm [facility] 07-12-2024 10:04-0500 Body mass index (BMI) [Ratio] 22.1 kg/m2 [facility] 07-12-2024 10:04-0500 Body weight 74.16 kg [facility] 07-12-2024 10:04-0500 Diastolic blood pressure 70 mm[Hg] [facility] 07-12-2024 10:04-0500 Heart rate 84 /min [facility] 07-12-2024 10:04-0500 Respiratory rate 12 /min [facility] 07-12-2024 10:04-0500 Systolic blood pressure 122 mm[Hg] [facility] 05-20-2024 11:09-0400 Body height 182.88 cm [facility] 05-20-2024 11:09-0400 Body mass index (BMI) [Ratio] 21.2 kg/m2 [facility] 05-20-2024 11:09-0400 Body temperature 98.1 [degF] [facility] 05-20-2024 11:09-0400 Body weight 70.98 kg [facility] 05-20-2024 11:09-0400 Diastolic blood pressure 66 mm[Hg] [facility] 05-20-2024 11:09-0400 Heart rate 76 /min [facility] 05-20-2024 11:09-0400 Respiratory rate 18 /min [facility] 05-20-2024 11:09-0400 SaO2% (BldA) [Mass fraction] 99 % [facility] 05-20-2024 11:09-0400 Systolic blood pressure 116 mm[Hg] [facility] 01-15-2024 13:04-0400 Body height 182.88 cm [facility] 01-15-2024 13:04-0400 Body mass index (BMI) [Ratio] 21.5 kg/m2 [facility] 01-15-2024 13:04-0400 Body temperature 98.3 [degF] [facility] 01-15-2024 13:04-0400 Body weight 72.12 kg [facility] 01-15-2024 13:04-0400 Diastolic blood pressure 60 mm[Hg] [facility] 01-15-2024 13:04-0400 Heart rate 78 /min [facility] 01-15-2024 13:04-0400 Respiratory rate 16 /min [facility] 01-15-2024 13:04-0400 SaO2% (BldA) [Mass fraction] 96 % [facility] 01-15-2024 13:04-0400 Systolic blood pressure 132 mm[Hg] [facility] 01-08-2024 10:12-0400 Body height 182.88 cm [facility] 01-08-2024 10:12-0400 Body mass index (BMI) [Ratio] 21.2 kg/m2 [facility] 01-08-2024 10:12-0400 Body weight 70.87 kg [facility] 01-08-2024 10:12-0400 Diastolic blood pressure 69 mm[Hg] [facility] 01-08-2024 10:12-0400 Heart rate 66 /min [facility] 01-08-2024 10:12-0400 Respiratory rate 12 /min [facility] 01-08-2024 10:12-0400 Systolic blood pressure 127 mm[Hg] [facility] 08-05-2023 15:44-0500 Diastolic blood pressure 82 mm[Hg] DO Jeremy Ball Work Phone: [facility] 08-05-2023 15:44-0500 Heart rate 78 /min DO Jeremy Ball Work Phone: [facility] 08-05-2023 15:44-0500 Respiratory rate 16 /min DO Jeremy Ball Work Phone: [facility] 08-05-2023 15:44-0500 SaO2% (BldA) [Mass fraction] 97 % DO Jeremy Ball Work Phone: [facility] 08-05-2023 15:44-0500 Systolic blood pressure 157 mm[Hg] DO Jeremy Ball Work Phone: [facility] 08-05-2023 13:26-0500 Body height 182.88 cm DO Jeremy Ball Work Phone: [facility] 08-05-2023 13:26-0500 Body weight 68.03 kg DO Jeremy Ball Work Phone: [facility] 07-24-2023 12:40-0500 Body height 182.88 cm Young Yash Other [employer] Other 07-24-2023 12:40-0500 Body mass index (BMI) [Ratio] 21.83 kg/m2 Young Yash Other [employer] Other 07-24-2023 12:40-0500 Body temperature 98.6 [degF] Young Yash Other [employer] Other 07-24-2023 12:40-0500 Body weight 73.03 kg Young Yash Other [employer] Other 07-24-2023 12:40-0500 Diastolic blood pressure 62 mm[Hg] Young Yash Other [employer] Other 07-24-2023 12:40-0500 Respiratory rate 16 /min Young Yash Other [employer] Other 07-24-2023 12:40-0500 SaO2% (BldA) [Mass fraction] 100 % Young Yash Other [employer] Other 07-24-2023 12:40-0500 Systolic blood pressure 130 mm[Hg] Young Yash Other [employer] Other 07-09-2023 10:30-0500 Body height 182.88 cm Jeremy Ball Other [employer] Other 07-09-2023 10:30-0500 Body mass index (BMI) [Ratio] 21.13 kg/m2 Jeremy Ball Other [employer] Other 07-09-2023 10:30-0500 Body weight 70.67 kg Jeremy Ball Other [employer] Other 07-09-2023 10:30-0500 Diastolic blood pressure 69 mm[Hg] Jeremy Ball Other [employer] Other 07-09-2023 10:30-0500 Respiratory rate 12 /min Jeremy Ball Other [employer] Other 07-09-2023 10:30-0500 Systolic blood pressure 131 mm[Hg] Jeremy Ball Other [employer] Other 01-29-2023 13:30-0400 Body height 182.88 cm Jeremy Ball Other [employer] Other 01-29-2023 13:30-0400 Body mass index (BMI) [Ratio] 22.32 kg/m2 Jeremy Ball Other [employer] Other 01-29-2023 13:30-0400 Body weight 74.66 kg Jeremy Ball Other [employer] Other 01-29-2023 13:30-0400 Diastolic blood pressure 66 mm[Hg] Jeremy Ball Other [employer] Other 01-29-2023 13:30-0400 Respiratory rate 12 /min Jeremy Ball Other [employer] Other 01-29-2023 13:30-0400 Systolic blood pressure 119 mm[Hg] Jeremy Ball Other [employer] Other 01-07-2023 11:20-0400 Body height 182.88 cm Young Yash Other [employer] Other 01-07-2023 11:20-0400 Body mass index (BMI) [Ratio] 22.62 kg/m2 Young Yash Other [employer] Other 01-07-2023 11:20-0400 Body temperature 97.7 [degF] Young Yash Other [employer] Other 01-07-2023 11:20-0400 Body weight 75.66 kg Young Yash Other [employer] Other 01-07-2023 11:20-0400 Diastolic blood pressure 64 mm[Hg] Young Yash Other [employer] Other 01-07-2023 11:20-0400 Respiratory rate 18 /min Young Yash Other [employer] Other 01-07-2023 11:20-0400 SaO2% (BldA) [Mass fraction] 99 % Young Yash Other [employer] Other 01-07-2023 11:20-0400 Systolic blood pressure 127 mm[Hg] Young Yash Other [employer] Other 02-21-2022 11:20-0400 Body height 182.88 cm Young Yash Other [employer] Other 02-21-2022 11:20-0400 Body mass index (BMI) [Ratio] 23.95 kg/m2 Young Yash Other [employer] Other 02-21-2022 11:20-0400 Body temperature 96.8 [degF] Young Yash Other [employer] Other 02-21-2022 11:20-0400 Body weight 80.11 kg Young Yash Other [employer] Other 02-21-2022 11:20-0400 Diastolic blood pressure 62 mm[Hg] Young Yash Other [employer] Other 02-21-2022 11:20-0400 Respiratory rate 18 /min Young Yash Other [employer] Other 02-21-2022 11:20-0400 SaO2% (BldA) [Mass fraction] 98 % Young Yash Other [employer] Other 02-21-2022 11:20-0400 Systolic blood pressure 119 mm[Hg] Young Yash Other [employer] Other 11-08-2021 11:00-0400 Body height 182.88 cm Young Yash Other [employer] Other 11-08-2021 11:00-0400 Body mass index (BMI) [Ratio] 24.79 kg/m2 Young Yash Other [employer] Other 11-08-2021 11:00-0400 Body temperature 97.6 [degF] Young Yash Other [employer] Other 11-08-2021 11:00-0400 Body weight 82.92 kg Young Yash Other [employer] Other 11-08-2021 11:00-0400 Diastolic blood pressure 74 mm[Hg] Young Yash Other [employer] Other 11-08-2021 11:00-0400 Respiratory rate 18 /min Young Yash Other [employer] Other 11-08-2021 11:00-0400 SaO2% (BldA) [Mass fraction] 98 % Young Yash Other [employer] Other 11-08-2021 11:00-0400 Systolic blood pressure 139 mm[Hg] Young Yash Other [employer] Other Encounters Encounter Date Encounter Type Care Provider Facility Start: 09-14-2024 Non-patient / Non-visit Benjam in Ball DO Work Phone: [facility] Vascular Surg Work Phone: Start: 09-14-2024 End: 09-15-2024 Evaluation and management of inpatient Jeremy Ball Facility:[facility] Start: 09-13-2024 Non-patient / Non-visit Benjam in Ball DO Work Phone: [facility] Work Phone: Start: 09-03-2024 Non-patient / Non-visit Benjam in Ball DO Work Phone: [facility] Work Phone: Start: 09-03-2024 End: 09-03-2024 Patient encounter procedure Jeremy Ball DO Work Phone: [facility]-CT Scan [address] Work Phone: Start: 09-03-2024 End: 09-03-2024 ambulatory Jeremy Ball DO Work Phone: [facility] Work Phone: Start: 09-02-2024 End: 09-02-2024 Patient encounter procedure Jeremy Ball DO Work Phone: [facility] Work Phone: Start: 09-02-2024 End: 09-02-2024 ambulatory Jeremy Ball DO Work Phone: [facility] Work Phone: Start: 09-01-2024 End: 09-01-2024 ambulatory Jeremy Ball DO Work Phone: [facility] Work Phone: Start: 09-01-2024 End: 09-01-2024 Patient encounter procedure Jeremy Ball DO Work Phone: [facility] Physician [facility] Vascular Surg Work Phone: Start: 08-30-2024 Non-patient / Non-visit Benjam in Ball DO Work Phone: [facility] Vascular S[facility] Work Phone: Start: 08-30-2024 End: 08-30-2024 Admission to same day surgery center Jeremy Ball DO Work Phone: [facility]-Interventional Radiology Work Phone: Start: 08-30-2024 End: 08-30-2024 ambulatory Jeremy Lam DO Work Phone: [facility] Work Phone: Start: 08-26-2024 End: 08-26-2024 ambulatory [facility] Work Phone: Start: 08-26-2024 End: 08-26-2024 Patient encounter procedure [facility] Phys[facility] Vascular S[facility] Work Phone: Start: 07-12-2024 End: 07-12-2024 Patient encounter procedure [facility] Work Phone: Start: 07-09-2024 Non-patient / Non-visit [facility] Phys[facility] Work Phone: Start: 07-07-2024 Non-patient / Non-visit [facility] Work Phone: Start: 05-20-2024 End: 05-20-2024 ambulatory [facility] Work Phone: Start: 05-20-2024 End: 05-20-2024 Patient encounter procedure [facility] Nephrology Richard Work Phone: Start: 05-17-2024 Non-patient / Non-visit [facility] Work Phone: Start: 03-19-2024 End: 03-19-2024 ambulatory Ada Soares Facility: [facility] Start: 03-19-2024 End: 03-19-2024 Patient encounter procedure Ada Soares [facility] Start: 01-15-2024 End: 01-15-2024 ambulatory [facility] Work Phone: Start: 01-15-2024 End: 01-15-2024 Patient encounter procedure [facility] Phys[facility] Nephrology Richard Work Phone: Start: 01-08-2024 End: 01-08-2024 ambulatory [facility] Work Phone: Start: 01-08-2024 End: 01-08-2024 Patient encounter procedure [facility] Phys[facility] Work Phone: Start: 01-05-2024 Non-patient / Non-visit [facility] Work Phone: Start: 10-13-2023 Non-patient / Non-visit [facility] Work Phone: Start: 09-12-2023 End: 09-12-2023 ambulatory Ada M. Lue Facility:[facility] Start: 09-12-2023 End: 09-12-2023 Patient encounter procedure Ada M. Lue [facility] Start: 08-27-2023 End: 08-27-2023 ambulatory Ada M. Lue Facility:[facility] Start: 08-18-2023 End: 08-18-2023 ambulatory Young Yash Other [facility] [employer] Other Start: 08-18-2023 Telephone encounter Young Yash [facility] Start: 08-14-2023 ambulatory Ada Lue Facility:[facility] Start: 08-11-2023 ambulatory Ada Lue Facility:[facility] Start: 08-05-2023 Telephone encounter Jeremy Lam [facility] Start: 08-05-2023 End: 08-05-2023 Admission to same day surgery center DO Jeremy Lam Work Phone: [facility] Work Phone: Start: 08-05-2023 End: 08-05-2023 ambulatory DO Jeremy Lam Work Phone: [facility] Work Phone: Start: 08-04-2023 End: 08-04-2023 ambulatory Young Yash Other [employer] Other Start: 08-04-2023 Telephone encounter Young Yash [facility] Start: 07-24-2023 End: 07-24-2023 ambulatory Young Yash Other [employer] Other Start: 07-24-2023 Office outpatient vi sit 25 minutes Young Aysh [facility] Start: 07-17-2023 End: 07-17-2023 ambulatory Sixto Dobson Other [employer] Other Start: 07-17-2023 Telephone encounter Sixto Pascal Draw In Hand Start: 07-09-2023 End: 07-09-2023 ambulatory Jeremy Lam Other [employer] Other Start: 07-09-2023 Patient encounter procedure Jeremy Lam [facility] Start: 07-07-2023 End: 07-07-2023 ambulatory Jeremy Ball Other [employer] Other Start: 07-07-2023 Telephone encounter Jeremy Lam [facility] Start: 04-08-2023 End: 04-08-2023 ambulatory Jeremy Ball Other [employer] Other Start: 04-08-2023 Telephone encounter Jeremy Lam [facility] Start: 02-06-2023 End: 02-06-2023 ambulatory Jeremy Ball Other [employer] Other Start: 02-06-2023 Telephone encounter Jeremy Lam [facility] Start: 01-29-2023 End: 01-29-2023 ambulatory Jeremy Ball Other [employer] Other Start: 01-29-2023 Office outpatient vi sit 15 minutes Jeremy Lam [facility] Start: 01-29-2023 Telephone encounter Jeremy Genaro FP [facility] Start: 01-14-2023 End: 01-14-2023 ambulatory Jeremy Lam Other [employer] Other Start: 01-14-2023 Telephone encounter Jeremy Lam FP [facility] Start: 01-08-2023 End: 01-08-2023 ambulatory Young Yash Other [employer] Other Start: 01-08-2023 Telephone encounter Young Yash [facility] Start: 01-07-2023 End: 01-07-2023 ambulatory Young Yash Other [employer] Other Start: 01-07-2023 Office outpatient vi sit 25 minutes Young Yash [facility] Start: 01-07-2023 Telephone encounter Young Yash [facility] Start: 02-21-2022 End: 02-21-2022 ambulatory Young Yash Other [employer] Other Start: 02-21-2022 Office outpatient vi sit 25 minutes Young Yash [facility] Start: 02-21-2022 Telephone encounter Young Yash [facility] Start: 12-08-2021 End: 12-09-[address] JEREMY LAM Facility:[facility] Start: 11-29-2021 Adult health examination Jeremy Lam Other [employer] Other Start: 11-08-2021 End: 11-08-2021 ambulatory Young Yash Other [employer] Other Start: 11-08-2021 Office outpatient vi sit 25 minutes Young Yash [facility] Procedures Date Procedure Procedure Detail Performing Clinician Start: 09-14-2024 Insertion of carotid artery stent Geronimo Lam DO Work Phone: Start: 09-03-2024 Computed tomography of soft tissues of neck without contrast Jeremy Lam DO Work Phone: Start: 09-03-2024 CT of head without contrast Jeremy ron [...] Treatment Date Care Activity Detail Author Start: 09-15-2024 [facility] Start: 09-14-2024 Hospital admission [facility] Start: 08-30-2024 [facility] Start: 08-05-[address] [facility] [address] Neck WO contrast [facility] CT Unspecified body region WO contrast [facility] Patient Education [facility] Work Phone: Patient referral [facility] Work Phone: Renal function 1999 panel - Serum or Plasma [facility] Renal function 1999 panel - Serum or Plasma [facility] US.doppler Carotid a rteries - bilateral [facility] Immunizations Immunization Date Immunization Notes Care Provider Fa cility 12-04-2020 COVID-19 Vaccine Mod poly - Documentation Purposes Only Jeremy Lam Other [facility] Comment on above: Result Comment: 2023: [id number] 11-06-2020 COVID-19 Vaccine Mod poly - Documentation Purposes Only Jeremy Lam Other [facility] Comment on above: Result Comment: 2023: [id number] 06-15-2020 zoster vaccine recombinant Jeremy Lam Other [facility] 04-12-2020 zoster vaccine recombinant Jeremy Lam Other [facility] Payers Date Payer Category Payer Self-pay [id number] 2024 Unknown [id number] 2023 Medicare [id number] 2.1 [id number] 2023 Private Health Insurance [id number] 1959 Private Health Insurance [id number] 1955 Unknown [id number] 2.16.84 [id number] 1955 Unknown [id number] 2.16.8 [id number] 1955 Unknown [id number] 2.16.8 [id number] 1955 Unknown [id number] 2.16.8 [id number] 1955 Unknown [id number] 2.16.8 [id number] 1955 Unknown [id number] 2.16.8 [id number] Private Health Insurance [id number] Unknown [id number] 2.16.8 [id number] Unknown [id number] 2.16.8 [id number] Unknown [id number] 2.16.8 [id number] Unknown [id number] 2.16.8 [id number] Social History Date Type Detail Facility Unknown if ever smoked [employer] Other Start: 07-28-2067 Sex Assigned At F [facility] Start: 08-05-2023 End: 09-14-2024 Tobacco smoking status NHIS Smoker (finding) [facility] Start: 1955 Sex Assigned At Male F [facility] Start: 08-27-2023 Tobacco smoking status Heavy t obacco smoker (finding) [facility] Tobacco smoking status Never [facility] Start: 08-26-2024 End: 09-15-2024 Sex Male (finding) [facility] Goals Date Patient Goal Desired Activity /State Functional Status Date Assessment Result Facility 09-15-2024 Functional status Patient at Baseline [facility] Work Phone: 09-12-2023 Functional Status N/A [facility] Mental Status Date Assessment Result Facility 09-15-2024 Cognitive function Cognitive Sta tus Patient at Baseline [facility] Work Phone: Clinical Notes 11-08-2021 to 09-14-2024 Note Date & Type Note Facility 09-14-2024 Procedure note [facility] enter 09-03-2024 Radiology Diagnostic study note [facility] [place] [address] CT Scan Report Signed Patient: Sabrina Guevara MR#: [id number] : 1955 Acct:[id number] Age/Sex: 69 / M ADM Date: 5 Loc: CT Room: Type: [facility] Attending Dr: Shirley Collins [employer]-C Copies to: Shirley Collins APRN~ Ordering Provider: Shirley Collins APRN Date of Service: 09/03/24 CT/CT head/brain wo con: I65.21 - Occlusion and stenosis of right carotid artery ([id number]) CT/CT soft tissue neck wo con: I65.21 [...] Dwaine Moreno M.D.09/03/2024 1:35 PM Dictation Location: RADIO-PC-23 Transcribed By: ARPIT 09/03/24 1335 Dictated By: Dwaine Moreno II, MD 09/03/24 1325 Signed By: 09/03/24 1335 [facility] Work Phone: 08-30-2024 Procedure note [facility] enter 07-12-2024 Evaluation note Diagnosis Onset Date Resolution Anemia acute July 12, 2024 9:56am Carotid stenosis, right acute D ecember 2023 9:56am Chronic bronchitis acute Decemb er 2023 9:56am Chronic kidney disease acute De cember 2023 9:56am Hypercholesterolemia acute Dece mber 2023 9:56am Hypertension acute June 9:56am Hyponatremia acute June h2023 9:56am Nicotine addiction acute Decemb er 2023 9:56am Screening PSA (prostate specific antigen) acute July 12, 2024 9:56am Medicare annual wellness visit, initial noneactive July 12, 2024 9:56am [facility] Work Phone: 1(308) 242-654612-16-2024 Evaluation note* Diagnosis Onset Date Resolution Status [...] of bilateral carotid arteries acute 2024 10:43am [facility] Work Phone: [phone]) 606-223212-16-2024 Evaluation note* Diagnosis Onset Date Resolution Status [...] bilateral carotid arteries acute u 2024 9:52am [facility] Work Phone: 1([phone]) 143-816712-16-2024 Evaluation note* Diagnosis Onset Date Resolution Status [...] disease) stage 4, GFR 15-29 ml/min acute r y 2024 10:43am Occlusion and stenosis of bilateral carotid arteries acute Julua ry 2024 10:43am Occlusion and stenosis of bilateral carotid arteries acute Febru 2024 9:52am Occlusion and stenosis of bilateral carotid arteries acute u 2024 11:34am [facility] Work Phone: 1(972) 642-665102-16-2024 Hospital Discharge instructions Patient Education 09/12/2023 08:06:25 [...] including vitamins, herbs, eye drops, creams, and dzsm-mjr-xdrcpiy medicines. Any problems you or family members [...] provider tells you to take them. Taking akgq-nxk-ypixwgl medicines, vitamins, herbs, and supplements. Tests You [...] Follow these instructions at home: Medicines Take sbgu-jhv-dweqfxy and prescription medicines only as told by [...] provider. Document Revised: 03/27/2022 Document Reviewed: 02/23/2021 [employer] Patient Education 2022 [employer] Follow Up Care 08/27/2023 10:15:46 With:Rodger BRIDGES, MCKAYLA Tipton, URO Address: [address] [place] [address] [phone] When: Unknown Comments:6 mos (new med) [facility] 02-16-2024 NoteUrology Cystoscopy Cystoscopy is [...] including vitamins, herbs, eye drops, creams, and shya-gdr-hvepnny medicines. ? Any problems you or family [...] tells you to take them. ? Taking nxvx-ygl-aepzkev medicines, vitamins, herbs, and supplements. Tests You [...] these instructions at home: Medicines ? Take rssf-zkc-zhpkorx and prescription medicines only as told by [...] or the department th (more content not included)...[facility] 08-27-2023 NoteChief Complaint Referral *Bladder Wall Thickening HPI Staff Surgical Resident referral for bladder wall thickening by Dr [...] disorders of bladder) CT AP wo Con @[facility] 08/04/23 - right urinary [...] & nocturia. Denies leakin (more content not included)...[facility]Result Comment: Electronically Signed By: Ada Soares MD\.br\Date and Time Signed: 08/27/23 09:44EST\.br\Electronically Co-Signed By: Dalia Campos\.br\Date and Time Co-Signed: 08/27/23 09:16 [id number] [facility]* Encounter Date Diagnosis Assessment Notes Treatment Notes Treatment Clinical Notes Jul, Bladder wall thickening (ICD-10 - N32.89) Denies dysuria, polyuria or hematuria. Due to findings, referral for cystoscopy has been initiated. [employer] Other 01-08-2024 Evaluation note* Encounter Date Diagnosis Assessment Notes Treatment Notes Treatment Clinical Notes Jul, Cigarette nicotine dependence without complication (ICD-10 - F17.210) LDCT: 11/2021, 07/2023 [employer] Other 12-28-2023 Evaluation note* Encounter Date Diagnosis [...] I explained to him potential need of ADMINISTRATIVE ASSOCIATE in the near future. I discussed with him different option of ADMINISTRATIVE ASSOCIATE including transplant, PD and HD. He is [...] and folate level. No need for LUPE. [employer] Other 12-13-2023 Evaluation note* Encounter Date Diagnosis [...] (ICD-10 - Z12.5) Yearly GARRISON and PSA [employer] Other 12-11-2023 Evaluation note* Encounter Date Diagnosis [...] adequate fluid balance and to avoid dehydration. [employer] Other 07-13-2023 Evaluation note* Encounter Date Diagnosis Assessment Notes Treatment Notes Treatment Clinical Notes Jan, Elevated cholesterol (ICD-10 - E78.00) [employer] Other 07-05-2023 Evaluation note* Encounter Date Diagnosis [...] to respiratory infections, vascular disease and cancers. 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 I discussed with him different option of ADMINISTRATIVE ASSOCIATE including transplant, PD and HD. He is [...] potassium diet and provide information about it [employer] Other 06-13-2023 Evaluation note* Encounter Date Diagnosis [...] I explained to him potential need of ADMINISTRATIVE ASSOCIATE in the near future. I discussed with him different option of ADMINISTRATIVE ASSOCIATE including transplant, PD and HD. He is [...] potassium diet and provide information about it [employer] Other 07-28-2022 Evaluation note* Encounter Date Diagnosis [...] I explained to him potential need of ADMINISTRATIVE ASSOCIATE in the near future. I discussed with him different option of ADMINISTRATIVE ASSOCIATE including transplant, PD and HD. He is [...] potassium diet and provide information about it [employer] Other [id number] Evaluation note* Encounter Date Diagnosis Assessment Notes [...] I explained to him potential need of ADMINISTRATIVE ASSOCIATE in the near future. I discussed with him different option of ADMINISTRATIVE ASSOCIATE including transplant, PD and HD. He is [...] potassium diet and provide information about it [employer] Other Evaluation + Plan note Future Appointments Appointment Date:03/19/2024 10:00:00 AM Scheduled Provider:Ada Soares MD Location:[facility] Appointment Type:URO Office Visit [facility] Evaluation [facility]No [facility] Other Evaluation noteNo assessment information available [facility] Work Phone: Evaluation note* Diagnosis Onset Date Resolution Status Anemia acute Carotid stenosis, right acut e Chronic bronchitis acute Chronic kidney disease acute GERD (gastroesophageal reflux disease) acute H/O: gout acute Hypercholesterolemia acute Hypertension acute Hyponatremia acute Nicotine addiction acute [facility] Work Phone: Evaluation note* Diagnosis Onset Date Resolution Status Anemia acute Carotid stenosis, right acut e Chronic bronchitis acute Chronic kidney disease acute GERD (gastroesophageal reflux disease) acute Hypercholesterolemia acute Hypertension acute Hyponatremia acute Nicotine addiction acute Anemia of renal disease acut e Atrophic kidney acute CKD (chronic kidney disease) stage 4, GFR 15-29 ml/min acute Hyperlipidemia acute [id number] acute Hyponatremia acute Secondary hyperparathyroidism acute [facility] Work Phone: Evaluation note* Diagnosis Onset Date Resolution Status Anemia of renal disease acut e Atrophic kidney acute CKD (chronic kidney disease) stage 4, GFR 15-29 ml/min acute Hyperlipidemia acute [id number] acute Hyponatremia acute Secondary hyperparathyroidism acute [facility] Work Phone: History and physical note Author Sixto Dobson [facility] August 05, 2023 3:00pm Note Date/Time August 05, 2023 3: 00pm [facility] [address] [place] [address] Gastroenterology H&P Signed Patient: Sabrina Guevara MR#: [id number] : 1955 Acct:[id number] Age/Sex: 68 / M Adm Date: 4 Loc: Room: Type: [facility] Attending Dr: Sixto Dobson MD Copies [...] signed by Sixto Dobson MD> 08/05/23 1500 [facility] Work Phone: History general Narrative - Reported* [...] Surgical History COLONOSCOPY Hospitalization History SEE ABOVE [employer] Other History general Narrative - Reported* Type [...] History COLONOSCOPY 2019 Hospitalization History SEE ABOVE [employer] Other Hisqefr general Narrative - Reported* Type Description Date [...] History COLONOSCOPY 2019 Hospitalization History SEE ABOVE [employer] Other Hisumri general Narrative - Reported* Type Description Date [...] History EGD 07/2023 Hospitalization History SEE ABOVE [employer] Other Hospital course Narrative No data available for this section [facility] Hospital Discharge instructions Additional Instructions [...] problems. -Follow up with PCP. -Office number [phone].[facility] Work Phone: Hospital Discharge instructions No data available for this section [facility] Progress note No data available for this section [facility] Reason for referral (narrative)* Reason *Waiting for appt Referral for EGD Diagnosis 1 Weight loss, uninten tional (R63.4) Diagnosis 2 Early satiety (R68.8 1) Diagnosis 3 Anemia, unspecified type (D64.9) Referral Organization [facility] Nereyda C anita Referring Provider First Name Jeremy Referring Provider Last Name Genaro Referring Provider Specialty Internal Me dicine Referred Organization [facility] Gastroenterolo gy Referred Provider Tanvir Mc Referred Address [address] ,[place], [place],[address] Referred Provider Specialty Gastroentero logy Referral Priority [...] 07/10/2023 09:14:25 AM >received today, referral faxed [facility] [employer] Other Summary Purpose Family History Relationship Condition [...] disease) stage 4, GFR 15-29 ml/min Hyperlipidemia [id number] Hyponatremia Secondary hyperparathyroidism Chief Complaint RENAL 4 MONTH F/U Reason for Visit Anemia of renal dise ase Atrophic kidney CKD (chronic kidney disease) stage 4, GFR 15-29 ml/min Hyperlipidemia [id number] Hyponatremia Secondary hyperparathyroidism Chief Complaint Admit Date [...] 2024 9:56am Chronic kidney disease July 12 24 9:56am Hypercholesterolemia July 12, 2024 9:56am Hypertension [...] I65.21 N18.4 September 03, 2024 9 :57am Chief Complaint Admit Date CC Adult Risk Stratification July 092023 1:26pm wellness July 12, 2024 9:56am Ref from Dr. Lam; Carotid Stenosis Quirino 2024 10:43am Carotid Stenosis August 30, 2024 8 :59am Carotid Stenosis August 30, 2024 1 0:33am To go over angiogram; Carotid Stenosis F 2024 9:52am Carotid Stenosis September 02, 2024 3 :21pm I65.21 N18.4 September 03, 2024 9 :57am Carotid Stenosis September 14, 2024 11:34am Carotid Stenosis September 14, 2024 3:24pm Reason for Visit Admit Date Anemia July [...] delgado tid arteries September 01, 2024 9:52am 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 September 14, 2024 11:34am Reason for Referral Reason Mr. Guevara is bein g referred for cystoscopy Diagnosis 1 Bladder wall thicken ing (N32.89) Referral Organization [facility] Genaro howard Referring Provider First Name Jeremy Referring Provider Last Name Genaro Referring Provider Specialty Internal Ms dicine Referred Organization [facility] Referred Address [address],[place], [place],[address] Referred Provider Specialty Urology Referral Priority Routine [...] and content) DATE CREATED AUTHOR 12/15/2021 [facility] DATE CREATED AUTHOR AUTHOR'S ORGANIZ ATION 03/22/2024 [facility] [place] [facility] DATE CREATED AUTHOR AUTHOR'S ORGANIZ ATION 09/16/2024 [facility] REASON FOR VISIT (unrecogniz [...] 2024 Team Status: Active Member Role Status Mniesh Lam DO Primary Care Provide r, Attending [...] Attending Provider Active Start: September 03, 2024 Team Status: Active Member Role Status Minesh aLm DO Primary Care Provide r, Attending Provider Active Start: September 13, 2024 Team Status: Inactive Member Role Status Minesh Lam DO Primary Care Provider Active Start: September 14, 2024 End: September 15, 2024 Onofre Francis MD Admit Provider , Attending Provider Active Start: September 14, 2024 End: September 15, 2024 Team Status: Active Member Role Status Minesh Lam DO Primary Care Provider Active Start: September 14, 2024 Onofre Francis MD Admit Provider , Attending Provider, Other Provider Active Start: September 14, 2024 Goals (unrecognized section and content) Goals [...] BE BASED ON THE PRIMARY CLINICAL RECORDS. [facility]. provides no warranty or guarantee of the accuracy or completeness of information in this document.
[2024-09-17 08:24] LABS: Hematocrit 36.8 % (42.0-54.0); Hemoglobin 12.9 g/dL (14.0-18.0); Mean Corpuscular HGB Conc 35.1 g/dL (29.9-35.2); Mean Corpuscular Hemoglobin 33.2 pg (25.9-34.0); Mean Corpuscular Volume 94.6 fL (80.0-94.0); Mean Platelet Volume 9.4 fL (9.5-13.5); Platelet Count 242 10^3/uL (150-450); Red Blood Count 3.89 10^6/uL (4.70-6.10); Red Cell Distribution Width 13.1 % (11.0-15.0); White Blood Count 7.1 10^3/uL (4.0-11.0)
[2024-09-17 08:27] LABS: Bilirubin Urine NEGATIVE (NEGATIVE); Blood Urine NEGATIVE (NEGATIVE); Clarity Urine CLEAR (CLEAR); Color Urine LT. YELLOW (YELLOW); Glucose Urine UA NEGATIVE (NEGATIVE); Ketones Urine NEGATIVE (NEGATIVE); Leukocyte Esterase Urine NEGATIVE (NEGATIVE); Nitrite Urine NEGATIVE (NEGATIVE); Protein Urine NEGATIVE (NEG/TRACE); Specific Gravity Urine <=1.005 (1.005-1.025); Urobilinogen Urine 0.2 EU/dL (0.2-1.0); pH Urine 5.5 (5.0-9.0)
[2024-09-17 08:36] LABS: Creatinine Urine Random 65.69 mg/dL (20.00-300.00); Protein Creatinine Ratio Urine 0.31; Total Protein Urine Random 20.1 mg/dL (<=11.9)
[2024-09-17 08:37] LABS: Bacteria Urine TRACE #/HPF (NONE SEEN); Cast Seen? NONE SEEN #/LPF (NONE SEEN); Crystals Seen? None Seen #/HPF (None Seen); Mucus Urine NONE SEEN (NONE SEEN); RBC Urine NONE SEEN #/HPF (0-2); Squamous Epithelial Cell Urine NONE SEEN #/LPF (NONE/RARE); WBC Urine NONE SEEN #/HPF (NONE SEEN)
[2024-09-17 08:43] LABS: Albumin Level 3.4 g/dL (3.4-5.0); Anion Gap 12.7; BUN Creatinine Ratio 7.3; Calcium 9.2 mg/dL (8.5-10.1); Carbon Dioxide 24.9 mmol/L (21.0-32.0); Chloride 100 mmol/L (98-107); Estimated GFR (African America 27 (>=60 mL/min/1.73m^2); Estimated GFR (Non-African Ame 22 (>=60 mL/min/1.73m^2); Glucose 75 mg/dL (74-106); Phosphorus 3.1 mg/dL (2.6-4.7); Potassium 4.6 mmol/L (3.5-5.1); Sodium 133 mmol/L (136-145); Uric Acid 6.6 mg/dL (3.5-7.2)
[2024-09-17 08:49] LABS: Percent Iron Saturation 19.4 %
[2024-09-19 11:08] LABS: PTH, Intact 54 pg/mL (15-65)
== END 2024-09-17 07:56 | disposition home or self-care (01) ==
LOC: LAB 07:57
PROVIDERS: PCP Internal Medicine; Visit Provider Internal Medicine
DX: E78.5 Hyperlipidemia, unspecified (principal); N25.81 Secondary hyperparathyroidism of renal origin; N26.1 Atrophy of kidney (terminal); N18.9 Chronic kidney disease, unspecified; D63.1 Anemia in chronic kidney disease; I12.9 Hypertensive chronic kidney disease with stage 1 through stage 4 chronic kidney disease, or unspecified chronic kidney disease
CPT/HCPCS: 36415; 80069; 81001; 82306; 82570; 82728; 83540; 83550; 83735; 83970; 84156; 84550; 85027

== ENCOUNTER 2025-01-03 10:29 | Outpatient (OUT) | payer MEDICARE, SELFPAY ==
--- OUTSIDE RECORDS SUMMARY | 2025-01-03 10:53 | XMS_ITS | CCD ---
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 Name Role Phone DR JEREMY LAM Consulting Unavailable MADDISON, DR NAGEL Attending Unavailable MADDISON, DR NAGEL Admitting Unavailable BALL, DR NAGEL Primary Care Unavailable DARIO, DR ADELINA Crews Consulting Unavailable Young Berrios Unavailable Jeremy Lam Unavailable Sixto Dobson Unavailable DO Jeremy Lam Primary Care Provider [phone] MD Sixto Dobson Attending Provider JEREMY LAM Primary Care Physician [phone] Ada Soares Attending Unavailable Ada Soares Attending Unavailable Ada Soares Attending Unavailable JEREMY LAM Referring Unavailable Jeremy Lam DO Primary Care Provider Onofre Francis MD Attending Provider Shirley Hoyt Attending Provider Onofre Francis MD Admit Provider Shirley Collins Attending Unavailable Shirley Collins Admitting Unavailable Jeremy Lam Primary Care Unavailable Onofre Francis Attending Unavailabl e Onofre Francis Admitting Unavailabl e Jeremy Lam Primary Care Unavailable Maddison, Jeremy Primary Care Unavailable Onofre Francis Attending Unavailabl e Onofre Francis Admitting Unavailabl e Onofre Francis Attending Unavailabl e Onofre Francis Admitting Unavailabl e Maddison, Jeremy Primary Care Unavailable Jeremy Lam DO Primary Care Provider Onofre rFancis MD Attending Provider [phone] Dennis DYSONCShirley Attending Provider Tito BRIDGES, Onofre Barnes Admit Provider [phone] Allergies Allergy Classification Reported Allergen(s) Allergy Type Date of Onset Reaction(s) Facility (2 sources) patient allergy list reviewed by nurse or physicia Propensity to adverse reactions Comment:Done Zenring Other (1 source) No Known Medication Allergies; Translations: [No Known Medication Allergies] Propensity to adverse reactions (disorder) [facility] Repository Medications Current Medications Medication Drug [...] Active 81 MG PO Every morning February 02, 2019 12:00am atorvastatin 40 mg oral tablet (20 sources) HMG-CoA Reductase Inhibitor Start: 08-26-2024 End: 09-02-2024 take 1 tablet by mouth once daily in the morning Atorvastatin 40 mg tablet Active 40 MG PO Every morning September 02, 2024 1:00am Start: 03-01-2024 End: 08-26-2024 take 1 tablet by mouth once daily Atorvastatin 20 mg tablet Discontinued 0 .ROUTE .COMPLEX March 01, 2024 11:05am August 26, 2024 12:42pm TAKE 1 TABLET BY MOUTH DAILY Start: 03-01-2024 take 1 tablet by kamala th once daily Atorvastatin Active 0 .ROUTE .COMPLEX March 01, 2024 11:05am TAKE 1 TABLET BY MOUTH DAILY Start: 02-02-2019 End: 03-01-2024 take 1 tablet by mouth once daily Atorvastatin 20 mg tablet Discontinued 20 MG PO Daily 90 90 March 01, 2024 9:52am March 01, 2024 11:05am clopidogrel 75 mg oral tablet (15 sources) P2Y12 Platelet Inhibitor Start: 08-26-2024 End: 09-02-2024 take 1 tablet by mouth once daily in the morning Clopidogrel 75 mg tablet Active 75 MG PO Every morning September 02, 2024 1:00am famotidine 40 mg oral tablet (18 sources) Histamine-2 Receptor Antagonist Start: 09-23-2023 End: 09-02-2024 take 1 tablet by mouth once daily in the morning Famotidine (Pepcid) 40 mg tablet Active 40 MG PO Every morning September 02, 2024 1:00am Take 1 tablet orally once a day ferrous sulfate 325 mg oral tablet (2 sources) Start: 09-23-2024 Ferrous Sulfate 325 mg (65 mg iron) tablet Active 325 MG PO Every 48 hours September 23, 2024 1:00am levothyroxine sodium 0.025 mg oral tablet (8 sources) l-Thyroxine Start: 09-06-2024 End: 09-10-2024 take 1 tablet by mouth once daily Levothyroxine 25 mcg tablet Active 25 MCG PO Daily September 10, 2024 3:15pm omeprazole 40 mg delayed release oral capsule (8 sources) Proton Pump Inhibitor Start: 08-27-2023 omeprazole 40 mg Cap-DR Refills(s) 0 Start Date: 08/27/23 Status: Ordered Start: 07-09-2023 take 1 capsule by mo uth once daily Omeprazole 40 MG 1 capsule 30 minutes before morning meal Orally Once a day for 30 days Jun, Active tamsulosin hydrochloride 0.4 mg oral capsule (14 sources) alpha-Adrenergic Inna Start: 09-12-2023 take 1 capsule by mouth once daily in the morning Tamsulosin 0.4 mg capsule Active 0.4 MG PO Every morning January 08, 2024 12:00am Completed/Discontinued Medications Medication Drug Class(es) Dates Sig (Normalized) Sig (Original) amLODIPine 5 mg oral tablet (20 sources) Dihydropyridine Calcium Channel Inna Start: 02-02-2019 End: 09-02-2024 take 1 tablet by mouth once daily Amlodipine 5 mg tablet Discontinued 5 MG PO Daily May 07, 2024 1:56pm September 02, 2024 5:09pm take 1 tablet by kamala th every [...] Date: 08/27/23 Status: Ordered Start: 02-02-2019 End: 10-11-2024 Benazepril 40 mg tablet Disc ontinued 20 MG PO Daily 45 90 July 12, 2024 11:18am September 02, 2024 5:09pm Start: 02-02-2019 End: 10-14-2023 take 20 mg [...] .every other week January 15, 2024 1:06pm August 30, 2024 10:09am Start: 08-27-2023 ergocalciferol 50,000 intl units Cap [...] mo uth every week Ergocalciferol 1.25 MG (16707 UT) 1 capsule Orally Q week for 90 days Dec, Active labetalol hydrochloride 100 mg oral tablet (20 sources) beta-Adrenergic Inna Start: 08-05-2023 End: 09-21-2024 take 1 tablet by mouth twice daily Labetalol 100 mg tablet Discontinued 100 MG PO Twice daily 180 90 April 16, 2024 4:45pm September 21, 2024 12:09pm Problems Active Problems Problem Classification Problem Date Documented Date Episodic/Chronic Calculus of urinary tract (3 sources) Kidney stone; Translations: [Calculus of kidney] Onset: 4 Episodic Chronic kidney disease (20 sources) Chronic kidney disease stage 4; Translations: [Chronic kidney disease, stage 4 (severe)] Onset: 2 Resolved: 2 Chronic Chronic obstructive pulmonary disease and bronchiectasis (20 sources) Chronic bronchitis; Translations: [Unspecified chronic bronchitis] 01-06-2024 Chronic Deficiency and other anemia (7 sources) Anemia of renal disease; Translations: [Anemia in chronic kidney disease] Chronic Deficiency and other anemia (1 source) Anemia in chronic kidney disease Chronic Deficiency and other anemia (11 sources) Anemia, unspecified; Translations: [Anemia, unspecified] Episodic Deficiency and other anemia (9 sources) Anemia; Translations: [Anemia, unspecified] 01-08-2024 Episodic Disorders of lipid metabolism (20 sources) Hypercholesterolemia; Translations: [Pure hypercholesterolemia, unspecified] Chronic Esophageal disorders (14 sources) Gastroesophageal reflux disease; Translations: [Gastro-esophageal reflux [...] 2 Resolved: 2 Chronic Hyperplasia of prostate (20 sources) Lower urinary tract symptoms due to [...] r ight bulb), <50% LICA - 07/2024 US: >70% DAMARIS (93% r ight bulb) w/ <50% LICA - 07/2024,s/p TCAR - 08/2024, Other aftercare (1 source) Long-term current use of aspirin; Translations: [long-term (current) use of aspirin] Onset: 4 Episodic Other circulatory disease (5 sources) Carotid bruit; Translations: [Other specified symptoms and signs involving the circulatory and respiratory systems] 08-26-2024 Episodic Other circulatory disease (8 sources) Other specified symptoms and signs involving [...] Chronic Other diseases of kidney and ureters (10 sources) Secondary hyperparathyroidism of renal origin; Translations: [Secondary hyperparathyroidism (of renal origin)] Onset: 2 Resolved: 2 Chronic Other gastrointestinal disorders (13 sources) Occult blood in stools; Translations: [Other fecal abnormalities] 07-09-2023 Episodic Comment on above: Problem List clean-u p per request of Phys. EHR Cmte Other nutritional; endocrine; and metabolic disorders (1 source) Abnormal weight loss Episodic Other screening for suspected conditions (not mental disorders or infectious disease) (19 sources) Encounter for screening for malignant neoplasm [...] LDCT: no suspicious nodules - 07/2023, 07/2024 Thyroid disorders (6 sources) Hypothyroidism; Translations: [Hypothyroidism, unspecified] 09-21-2024 Chronic Unclassified (2 sources) Long-term current use [...] Erythrocyte distribution wid th Auto (RBC) [Ratio]on 09-17-2024 Erythrocyte distribution width (RBC) [Ratio] Erythrocyte distribution width [Ratio] by Automated count 11.0-15.0 [facility] Estimated glomerular filtrat ion rate (GFR) non- Americanon 09-17-2024 GFR/1.73 sq M.predicted among non-blacks MDRD (S/P/Bld) [Vol rate/Area] Estimated glomerular filtration rate (GFR) non- Low >=60 mL/min/1.73 m 2 [facility] Hematocrit Auto (Bld) [Volum e fraction]on 09-17-2024 Hematocrit (Bld) [Volume fraction] Hematocrit [Volume Fraction] of Blood by Automated count Low 42.0-54.0 [facility] Hemoglobin [Mass/volume] in Bloodon 09-17-2024 Hemoglobin (Bld) [Mass/Vol] Hemoglobin [Mass/volume] in Blood Low 14.0-18.0 [facility] Iron binding capacity [Mass/ volume] in Serum or Plasmaon 09-17-2024 Iron binding capacity [Mass/Vol] Iron binding capacity [Mass/volume] in Serum or Plasma Low 250.0-450.0 [facility] Iron saturation [Mass Fracti on] in Serum or Plasmaon 09-17-2024 Iron saturation [Mass fraction] Iron saturation [Mass Fraction] in Serum or Plasma [facility] Laboratory - Chemistry and C hemistry - challengeon 09-17-2024 Albumin [Mass/Vol] 3.4 g/dL 3.4-5.0 [facility] Calcium [Mass/Vol] 9.2 mg/dL 8.5-10.1 [facility] Chloride [Moles/Vol] 100 mmol/L 98-107 [place] CO2 [Moles/Vol] 24.9 mmol/L 21.0-32.0 [facility] Creatinine [Mass/Vol] 2.88 mg/dL High 0.70-1.30 [facility] Ferritin [Mass/Vol] 324.0 ng/mL 26.0-388.0 [place] GFR/1.73 sq M.predicted MDRD (S/P/Bld) [Vol rate/Area] 27 mL/min/{1.73_m2} Low >=60 mL/min/1.73 m 2 [facility] Glucose [Mass/Vol] 75 mg/dL 74-106 [facility] Iron [Mass/Vol] 34.0 ug/dL Low 65.0-175.0 [facility] Magnesium [Mass/Vol] 2.0 mg/dL 1.8-2.4 [place] Potassium [Moles/Vol] 4.6 mmol/L 3.5-5.1 [facility] Sodium [Moles/Vol] 133 mmol/L Low 136-145 [facility] Urate [Mass/Vol] 6.6 mg/dL 3.5-7.2 [facility] Urea nitrogen [Mass/Vol] 21.0 mg/dL High 7.0-18.0 [facility] Urea nitrogen/Creatinine [Mass ratio] 7.3 mg/mg [facility] Laboratory - Urinalysison Protein (U) [Mass/Vol] 20.1 mg/dL High <=11.9 [facility] Leukocytes [#/volume] correc mitchell for nucleated erythrocytes in Blood by Automated counon 09-17-2024 WBC corrected for nucl RBC Auto (Bld) [#/Vol] Leukocytes [#/volume] corrected for nucleated erythrocytes in Blood by Automated coun 4.0-11.0 [facility] MCH Auto (RBC) [Entitic mass ]on 09-17-2024 MCH (RBC) [Entitic mass] MCH [Entitic ma ss] by Automated count 25.9-34.0 [facility] MCHC Auto (RBC) [Mass/Vol]on 09-17-2024 MCHC (RBC) [Mass/Vol] MCHC [Mass/volume] by Automated count 29.9-35.2 [facility] MCV Auto (RBC) [Entitic vol] on 09-17-2024 MCV (RBC) [Entitic vol] MCV [Entitic vol ume] by Automated count High 80.0-94.0 [facility] No Panel Informationon 09-17 25-Hydroxy Vitamin D Total 72.5 ng/mL [facility] Comment on above: <20 ng/mL Vit D defi cient20-<30 ng/mL Vit D [id number] ng/mL Vit D sufficient>100 ng/mL Potential Toxicity Parathyroid Hormone (Intact) 54 pg/mL 15-65 [facility] Comment on above: Performed at: [facility] [place] [id number] Director: Yakov Sheikh PhD, Phone: [phone] Phosphorus Level 3.1 mg/dL 2.6-4.7 [facility] Urine Random Creatinine 65.69 mg/dL 20.0 0-300.0 0 [facility] Platelet mean volume Auto (B ld) [Entitic vol]on 09-17-2024 Platelet mean volume (Bld) [Entitic vol] Platelet mean volume [Entitic volume] in Blood by Automated count Low 9.5-13.5 [facility] Platelets Auto (Bld) [#/Vol] on 09-17-2024 Platelets (Bld) [#/Vol] Platelets [#/vol ume] in Blood by Automated count 150-450 [facility] RBC Auto (Bld) [#/Vol]on RBC (Bld) [#/Vol] Erythrocytes [#/volume] in Blood by Automated count Low 4.70-6.10 [facility] Serum or plasma anion gap de terminationon 09-17-2024 Anion gap [Moles/Vol] Serum or plasma an ion gap determination [facility] Urine protein/creatinine rat ioon 09-17-2024 Protein/Creatinine (U) [Ratio] Urine protein/creatinine ratio [facility] Alanine aminotransferase [En zymatic activity/volume] in Serum or PlasmaOrdered By: Onofre Francis on 09-15-2024 ALT [Catalytic activity/Vol] Alanine aminotransferase [Enzymatic activity/volume] in Serum or Plasma Low 7-52 [facility] Albumin [Mass/volume] in Ser um or Plasma by Bromocresol green (BCG) dye binding methoOrdered By: Onofre Francis on 09-15-2024 Albumin BCG dye [Mass/Vol] Albumin [Mass /volume] in Serum or Plasma by Bromocresol green (BCG) dye binding metho Low 3.5-5.7 [facility] Alkaline phosphatase [Enzyma tic activity/volume] in Serum or PlasmaOrdered By: Onofre Francis on 09-15-2024 ALP [Catalytic activity/Vol] Alkaline ph osphatase [Enzymatic activity/volume] in Serum or Plasma 34-104 [facility] Aspartate aminotransferase [ Enzymatic activity/volume] in Serum or PlasmaOrdered By: Onofre Francis on 09-15-2024 AST [Catalytic activity/Vol] Aspartate aminotransferase [Enzymatic activity/volume] in Serum or Plasma 13-39 [facility] Bilirubin.total [Mass/volume ] in Serum or PlasmaOrdered By: Onofre Francis on 09-15-2024 Bilirubin [Mass/Vol] Bilirubin.total [Mass/volume] in Serum or Plasma 0.3-1.0 [facility] Calcium [Mass/volume] in Ser um or PlasmaOrdered By: Onofre Francis on 09-15-2024 Calcium [Mass/Vol] Calcium [Mass/volume ] in Serum or Plasma 8.6-10.3 [facility] Carbon dioxide, total [Moles /volume] in Serum or PlasmaOrdered By: Onofre Francis on 09-15-2024 CO2 [Moles/Vol] Carbon dioxide, tota l [Moles/volume] in Serum or Plasma 21.0-31.0 [facility] Chloride [Moles/volume] in S iris or PlasmaOrdered By: Onofre Francis on 09-15-2024 Chloride [Moles/Vol] Chloride [Moles/volume] in Serum or Plasma 98-107 [facility] Comprehensive Metabolic Pane chidi 09-15-2024 Albumin [Mass/Vol] 3.3 g/dL Low 3.5-5.7 [facility] Comment on above: Order Comment: Comme nt TO BE DRAWN DAY OF SURGERY Performed By: #### C MP #### [address] Albumin/Globulin [Mass ratio] 1.4 {ratio} Normal [facility] Comment on above: Order Comment: Comme nt TO BE DRAWN DAY OF SURGERY Performed By: #### C MP #### [address] ALP [Catalytic activity/Vol] 58 U/L Normal 34-104 [facility] Comment on above: Order Comment: Comme nt TO BE DRAWN DAY OF SURGERY Performed By: #### C MP #### [address] ALT [Catalytic activity/Vol] 6 U/L Low 7-52 [facility] Comment on above: Order Comment: Comme nt TO BE DRAWN DAY OF SURGERY Performed By: #### C MP #### [address] Anion gap [Moles/Vol] 9.1 mmol/L Normal 6.0-15.0 [facility] Comment on above: Order Comment: Comme nt TO BE DRAWN DAY OF SURGERY Performed By: #### C MP #### [address] AST [Catalytic activity/Vol] 13 U/L Normal 13-39 [facility] Comment on above: Order Comment: Comme nt TO BE DRAWN DAY OF SURGERY Performed By: #### C MP #### [address] Bilirubin [Mass/Vol] 0.5 mg/dL Normal 0.3-1.0 [facility] Comment on above: Order Comment: Comme nt TO BE DRAWN DAY OF SURGERY Performed By: #### C MP #### [address] Calcium [Mass/Vol] 8.6 mg/dL Normal 8.6-10.3 [facility] Comment on above: Order Comment: Comme nt TO BE DRAWN DAY OF SURGERY Performed By: #### C MP #### [place] [address] [place] Chloride [Moles/Vol] 104 mmol/L Normal 98-107 [facility] Comment on above: Order Comment: Comme nt TO BE DRAWN DAY OF SURGERY Performed By: #### C MP #### [address] CO2 [Moles/Vol] 22.6 mmol/L Normal 21.0-31.0 [facility] Comment on above: Order Comment: Comme nt TO BE DRAWN DAY OF SURGERY Performed By: #### C MP #### [address] Creatinine [Mass/Vol] 2.45 mg/dL High 0.70-1.30 [facility] Comment on above: Order Comment: Comme nt TO BE DRAWN DAY OF SURGERY Performed By: #### C MP #### [address] Creatinine Clr Calc Pharmacy 31.20 Normal [facility] Comment on above: Order Comment: Comme nt TO BE DRAWN DAY OF SURGERY Result Comment: PERF ORMED BY: [place] [address] PATHOLOGIST NETWORK COORDINATOR GARCÍA AZUL M.D. Performed By: #### C MP #### [address] Estimated GFR 28.145 mL/Min Normal [facility] Comment on above: Order Comment: Comme nt TO BE DRAWN DAY OF SURGERY Performed By: #### C MP #### [address] Globulin (S) [Mass/Vol] 2.3 g/dL Normal [facility] Comment on above: Order Comment: Comme nt TO BE DRAWN DAY OF SURGERY Performed By: #### C MP #### [address] Glucose [Mass/Vol] 76 mg/dL Normal 70-100 [facility] Comment on above: Order Comment: Comme nt TO BE DRAWN DAY OF SURGERY Result Comment: [place] Glucose Reference Range is dependent on time and content of last meal. Glucose of more than 200 mg/dL in a nonstressed, ambulatory subject supports the diagnosis of Diabetes Mellitus. ADA recommended reference range Performed By: #### C MP #### [address] Potassium [Moles/Vol] 4.7 mmol/L Normal 3.5-5.1 [facility] Comment on above: Order Comment: Comme nt TO BE DRAWN DAY OF SURGERY Performed By: #### C MP #### [address] Protein [Mass/Vol] 5.6 g/dL Low 6.4-8.9 [facility] Comment on above: Order Comment: Comme nt TO BE DRAWN DAY OF SURGERY Performed By: #### C MP #### [address] Sodium [Moles/Vol] 131 mmol/L Low 136-145 [facility] Comment on above: Order Comment: Comme nt TO BE DRAWN DAY OF SURGERY Performed By: #### C MP #### [address] Urea nitrogen [Mass/Vol] 21 mg/dL Normal 7-25 [facility] Comment on above: Order Comment: Comme nt TO BE DRAWN DAY OF SURGERY Performed By: #### C MP #### [address] Creatinine [Mass/volume] in Serum or PlasmaOrdered By: Onofre Francis on 09-15-2024 Creatinine [Mass/Vol] Creatinine [Mass/volume] in Serum or Plasma High 0.70-1.30 [facility] Globulin Calc (S) [Mass/Vol] Ordered By: Onofre Francis on 09-15-2024 Globulin (S) [Mass/Vol] Serum globulin measurement by calculation (mass/volume) [facility] Glucose [Mass/volume] in Ser um or PlasmaOrdered By: Onofre Francis on 09-15-2024 Glucose [Mass/Vol] Glucose [Mass/volume ] in Serum or Plasma 70-100 [facility] Comment on above: ADA recommended refe rence rangeRandom Glucose Reference Range is dependent on time and content of last meal. Glucose of more than 200 mg/dL in a nonstressed, ambulatory subject supports the diagnosis of Diabetes Mellitus. No Panel InformationOrdered By: Onofre Francis on 09-15-2024 Estimated GFR (CKD-EPI) 28.145 mL/Min [facility] Creatinine Clearance (Chem 31.20 [facility] Potassium [Moles/volume] in Serum or PlasmaOrdered By: Onofre Francis on 09-15-2024 Potassium [Moles/Vol] Potassium [Moles/volume] in Serum or Plasma 3.5-5.1 [facility] Protein [Mass/volume] in Ser um or PlasmaOrdered By: Onofre Francis on 09-15-2024 Protein [Mass/Vol] Protein [Mass/volume ] in Serum or Plasma Low 6.4-8.9 [facility] Serum or plasma albumin/glob ulin mass ratioOrdered By: Onofre Francis on 09-15-2024 Albumin/Globulin [Mass ratio] Serum or plasma albumin/globulin mass ratio [facility] Serum or plasma anion gap de terminationOrdered By: Onofre Francis on 09-15-2024 Anion gap [Moles/Vol] Serum or plasma an ion gap determination 6.0-15.0 [facility] Sodium [Moles/volume] in Ser um or PlasmaOrdered By: Onofre Francis on 09-15-2024 Sodium [Moles/Vol] Sodium [Moles/volume ] in Serum or Plasma Low 136-145 [facility] Urea nitrogen [Mass/volume] in Serum or PlasmaOrdered By: Onofre Francis on 09-15-2024 Urea nitrogen [Mass/Vol] Urea nitrogen [Mass/volume] in Serum or Plasma 7-25 [facility] Activated Clotting Timeon Activated Clotting Time POC 268 s High 90-139 [facility] Comment on above: Result Comment: Refe rence Range: 90-139 (Non-heparinized) PERFORMED BY: [address] [place] [address] PATHOLOGIST NETWORK COORDINATOR GARCÍA AZUL M.D. Performed By: #### A CT #### [address] Activated Clotting Time POC 106 s Normal 90-139 [facility] Comment on above: Result Comment: Refe rence Range: 90-139 (Non-heparinized) PERFORMED BY: [place] [address] PATHOLOGIST NETWORK COORDINATOR GARCÍA AZUL M.D. Performed By: #### A CT #### [address] Amphetamine Screen Ql (U)Ord ered By: ADELINA BEDOLLA on 09-14-2024 Amphetamines Ql (U) Amphetamines screen Negativ e [facility] Barbiturates [Presence] in U rine by Screen methodOrdered By: ADELINA BEDOLLA on 09-14-2024 Barbiturates Screen Ql (U) Barbiturates [Presence] in Urine by Screen method Negative [facility] Basic Metabolic Panelon 08-28 Anion gap [Moles/Vol] 12.7 mmol/L Normal 6.0-15.0 [facility] Comment on above: Order Comment: Comme nt dos Performed By: #### B MP #### [address] Calcium [Mass/Vol] 9.4 mg/dL Normal 8.6-10.3 [facility] Comment on above: Order Comment: Comme nt dos Performed By: #### B MP #### [place] [address] [place] Chloride [Moles/Vol] 105 mmol/L Normal 98-107 [facility] Comment on above: Order Comment: Comme nt dos Performed By: #### B MP #### [address] CO2 [Moles/Vol] 19.8 mmol/L Low 21.0-31.0 [facility] Comment on above: Order Comment: Comme nt dos Performed By: #### B MP #### [address] Creatinine [Mass/Vol] 2.40 mg/dL High 0.70-1.30 [facility] Comment on above: Order Comment: Comme nt dos Performed By: #### B MP #### [address] Creatinine Clr Calc Pharmacy 31.85 Normal [facility] Comment on above: Order Comment: Comme nt dos Result Comment: PERF ORMED BY: [place] [address] PATHOLOGIST NETWORK COORDINATOR GARCÍA AZUL M.D. Performed By: #### B MP #### [address] Estimated GFR 28.850 mL/Min Normal [facility] Comment on above: Order Comment: Comme nt dos Performed By: #### B MP #### [address] Glucose [Mass/Vol] 84 mg/dL Normal 70-100 [facility] Comment on above: Order Comment: Comme nt dos Result Comment: [place] Glucose Reference Range is dependent on time and content of last meal. Glucose of more than 200 mg/dL in a nonstressed, ambulatory subject supports the diagnosis of Diabetes Mellitus. ADA recommended reference range Performed By: #### B MP #### [address] Potassium [Moles/Vol] 4.5 mmol/L Normal 3.5-5.1 [facility] Comment on above: Order Comment: Comme nt dos Performed By: #### B MP #### [place] [address] [place] Sodium [Moles/Vol] 133 mmol/L Low 136-145 [facility] Comment on above: Order Comment: Comme nt dos Performed By: #### B MP #### [address] Urea nitrogen [Mass/Vol] 22 mg/dL Normal 7-25 [facility] Comment on above: Order Comment: Comme nt dos Performed By: #### B MP #### [place] [id number] [place] Benzodiazepines Screen Ql (U )Ordered By: ADELINA BEDOLLA on 09-14-2024 Benzodiazepines Ql (U) Benzodiazepines [Presence] in Urine by Screen method Negative [facility] Benzoylecgonine [Presence] i n Urine by Screen methodOrdered By: ADELINA BEDOLLA on 09-14-2024 Benzoylecgonine Screen Ql (U) Benzoylecgonine [Presence] in Urine by Screen method Negative [facility] Blood activated clotting tamara e by coagulation assayOrdered By: Onofre Francis on 09-14-2024 ACT Coag (Bld) Blood activated clotting time by coagulation assay High 90-139 [facility] Comment on above: Reference Range: 90- 139 (Non-heparinized) Cannabinoids [Presence] in U rine by Screen methodOrdered By: ADELINA BEDOLLA on 09-14-2024 Cannabinoids Screen Ql (U) Cannabinoids [Presence] in Urine by Screen method High Negative [facility] Comment on above: These are unconfirme d results and should not be used for legal purposes. Drug Cut-Off Concentration: AMPH 1000 ng/mL NORMA 200 ng/mL LUIS 200 ng/mL COCM 300 ng/mL OP 300 ng/mL PCP 25 ng/mL THC 20 ng/mL Drug Screen,Urineon 09-14-19 25 Amphetamine Screen,Urine Negative Normal Negative [facility] Comment on above: Performed By: #### U RDS #### [place] [address] [place] Barbiturate Screen,Urine Negative Normal Negative [facility] Comment on above: Performed By: #### U RDS #### [facility] [address] [place] [address] [place] Benzodiazepines Screen,Urine Negative Normal Negativ e [facility] Comment on above: Performed By: #### U RDS #### [place] [address] [place] Cannabinoid Screen,Urine Positive High Negative [facility] Comment on above: Result Comment: Thes e are unconfirmed results and should not be used for legal purposes. Drug Cut-Off Concentration: AMPH 1000 ng/mL NORMA 200 ng/mL LUIS 200 ng/mL COCM 300 ng/mL OP 300 ng/mL PCP 25 ng/mL THC 20 ng/mL PERFORMED BY: [address] [place] [address] PATHOLOGIST NETWORK COORDINATOR GARCÍA AZUL M.D. Performed By: #### U RDS #### [address] Cocaine Screen,Urine Negative Normal Negative [facility] Comment on above: Performed By: #### U RDS #### [address] Opiate Screen,Urine Negative Normal Negative [facility] Comment on above: Performed By: #### U RDS #### [address] Phencyclidine Screen,Urine Negative Normal Negative [facility] Comment on above: Performed By: #### U RDS #### [address] Glucose Glucometer (dC) [M ass/Vol]Ordered By: Onofre Francis on 09-14-2024 Glucose [Mass/Vol] Capillary blood glucose measurement by glucometer (mass/volume) [facility] Comment on above: Random Glucose Refer ence Range is dependent on time and content of last meal. Glucose of more than 200 mg/dL in a nonstressed, ambulatory subject supports the diagnosis of Diabetes Mellitus. Glucose Poct Glucometerson 0 09-14-2024 Commemt1 Glu2: Cleaned Meter Normal [facility] Comment on above: Result Comment: PERF ORMED BY: [facility] [address] [place] [address] PATHOLOGIST NETWORK COORDINATOR GARCÍA AZUL M.D. Performed By: #### G LULS #### Point of Care testing , Glucose [Mass/Vol] 88 mg/dL Normal [facility] Comment on above: Result Comment: [place] om Glucose Reference Range is dependent on time [...] clot firmness [Length] in Blood by Thromboelastography [facility] Comment on above: See report. Scanned copy available in EMR. No Panel InformationOrdered By: Onofre Francis on 09-14-2024 Bedside Glucose Comment Glu2: cleaned meter [facility] Opiates [Presence] in Urine by Screen methodOrdered By: ADELINA BEDOLLA on 09-14-2024 Opiates Screen Ql (U) Opiates [Presence] in Urine by Screen method Negative [facility] Phencyclidine Screen Ql (U)O rdered By: ADELINA BEDOLLA on 09-14-2024 Phencyclidine Ql (U) Phencyclidine [Presence] in Urine by Screen method Negative [facility] TEG; Platelet Mappingon 08-28 TEG; Platelet Mapping . Normal [facility] Comment on above: Result Comment: See report. Scanned copy available in EMR. PERFORMED BY: [facility] [address] [facility] [place] [address] PATHOLOGIST NETWORK COORDINATOR GARCÍA AZUL M.D. Performed By: #### T EG PLT MAPPING ####[facility] Estimated glomerular filtrat ion rate (GFR) non- Americanon 09-13-2024 GFR/1.73 sq M.predicted among non-blacks MDRD (S/P/Bld) [Vol rate/Area] Estimated glomerular filtration rate (GFR) non- Low >=60 mL/min/1.73 m 2 [facility] Laboratory - Chemistry and C hemistry - challengeon 09-13-2024 Calcium [Mass/Vol] 9.0 mg/dL 8.5-10.1 [facility] Chloride [Moles/Vol] 99 mmol/L 98-107 [place] CO2 [Moles/Vol] 26.2 mmol/L 21.0-32.0 [facility] Creatinine [Mass/Vol] 2.78 mg/dL High 0.70-1.30 [facility] GFR/1.73 sq M.predicted MDRD (S/P/Bld) [Vol rate/Area] 28 mL/min/{1.73_m2} Low >=60 mL/min/1.73 m 2 [facility] Glucose [Mass/Vol] 108 mg/dL High 74-106 [facility] Potassium [Moles/Vol] 4.4 mmol/L 3.5-5.1 [facility] Sodium [Moles/Vol] 132 mmol/L Low 136-145 [facility] Urea nitrogen [Mass/Vol] 23.0 mg/dL High 7.0-18.0 [facility] Urea nitrogen/Creatinine [Mass ratio] 8.3 mg/mg [facility] Serum or plasma anion gap de terminationon 09-13-2024 Anion gap [Moles/Vol] Serum or plasma an ion gap determination [facility] CT soft tissue neck wo conon 09-03-2024 CT soft tissue neck wo [facility] [place] [address] CT Scan Report Signed Patient: Kingston Guevara MR#: [id number] : 1955 Acct:[id number] Age/Sex: 69 / M ADM Date: 09/03/24 Loc: CT Room: Type: [facility] Attending Dr: Shirley HOFFMAN Copies to: Shirley Collins APRN Ordering Provider: Shirley Collins APRN Date of Service: 09/03/24 CT/CT head/brain wo con: I65.21 - Occlusion and stenosis of right carotid artery ([id number]) CT/CT soft tissue neck wo con: I65.21 [...] Dwaine Moreno M.D.09/03/2024 1:35 PM Dictation Location: [place] [address] Transcribed By: [facility] 09/03/24 1335 Dictated By: Dwaine Moreno II, MD 09/03/24 1325 Signed By: 09/03/24 1335 Normal [facility] Laboratory - Chemistry and C hemistry - challengeon 09-03-2024 Free T4 [Mass/Vol] 0.70 ng/dL Low 0.76-1.46 [facility] Osmolality [Osmolality] 254 mosm/kg Abnormal 280-301 [facility] Comment on above: Performed at: [facility] - [facility] [address] [id number] Director: Brenda Ojeda MD, Phone: [phone] TSH Qn 5.360 m[IU]/L High 0.358-3.740 [facility] Urate [Mass/Vol] 6.1 mg/dL 3.5-7.2 [facility] Sodium (U) [Moles/Vol] 29 mmol/L Low 30-90 [facility] No Panel Informationon 09-03 Urine Osmolality 226 mOsmol/kg . [facility] Comment on above: 24 hr : 300 - 900 Ra ndom: 50 - 1400 After 12hr fluid restriction: >850Performed at: BN - [facility] [address] [id number] Director: Brenda Ojeda MD, Phone: [phone] Basic Metabolic Panelon Anion gap [Moles/Vol] 6.2 mmol/L Normal 6.0-15.0 [facility] Comment on above: Performed By: #### B MP #### [address] Calcium [Mass/Vol] 8.5 mg/dL Low 8.6-10.3 [facility] Comment on above: Result Comment: PERF ORMED BY: [place] [address] PATHOLOGIST NETWORK COORDINATOR GARCÍA AZUL M.D. Performed By: #### B MP #### [place] [address] [place] Chloride [Moles/Vol] 97 mmol/L Low 98-107 [facility] Comment on above: Performed By: #### B MP #### [place] [id number] [place] CO2 [Moles/Vol] 23.5 mmol/L Normal 21.0-31.0 [facility] Comment on above: Performed By: #### B MP #### [place] [id number] [place] Creatinine [Mass/Vol] 2.16 mg/dL High 0.70-1.30 [facility] Comment on above: Performed By: #### B MP #### [address] Estimated GFR 32.739 mL/Min Normal [facility] Comment on above: Performed By: #### B MP #### [address] Glucose [Mass/Vol] 82 mg/dL Normal 70-100 [facility] Comment on above: Result Comment: [facility] Glucose Reference Range is dependent on time and content of last meal. Glucose of more than 200 mg/dL in a nonstressed, ambulatory subject supports the diagnosis of Diabetes Mellitus. ADA recommended reference range Performed By: #### B MP #### [address] Potassium [Moles/Vol] 4.7 mmol/L Normal 3.5-5.1 [facility] Comment on above: Performed By: #### B MP #### [address] Sodium [Moles/Vol] 122 mmol/L Off scale low 136-145 [facility] Comment on above: Result Comment: Crit ical Result Called to and read back by: ONOFRE GRANDE at: 09/02/2024 17:42:57 by:[id number] Performed By: #### B MP #### [address] Urea nitrogen [Mass/Vol] 16 mg/dL Normal 7-25 [facility] Comment on above: Performed By: #### B MP #### [place] [address] [place] Basophils Auto (Bld) [#/Vol] Ordered By: Onofre Francis on 09-02-2024 Basophils (Bld) [#/Vol] Automated basoph il count 0.0-0.2 [facility] Basophils/100 WBC Auto (Bld) Ordered By: Onofre Francis on 09-02-2024 Basophils/100 WBC (Bld) Automated basophil % . [facility] Calcium [Mass/volume] in Ser um or PlasmaOrdered By: Onofre Francis on 09-02-2024 Calcium [Mass/Vol] Calcium [Mass/volume ] in Serum or Plasma Low 8.6-10.3 [facility] Carbon dioxide, total [Moles /volume] in Serum or PlasmaOrdered By: Onofre Francis on 09-02-2024 CO2 [Moles/Vol] Carbon dioxide, tota l [Moles/volume] in Serum or Plasma 21.0-31.0 [facility] Chloride [Moles/volume] in S iris or PlasmaOrdered By: Onofre Francis on 09-02-2024 Chloride [Moles/Vol] Chloride [Moles/volume] in Serum or Plasma Low 98-107 [facility] Complete Blood Count Auto Di ffon 09-02-2024 Basophils (Bld) [#/Vol] 0.1 10*3/uL Normal 0.0-0.2 [facility] Comment on above: Result Comment: PERF ORMED BY: [place] [address] PATHOLOGIST NETWORK COORDINATOR GARCÍA AZUL M.D. Performed By: #### C BC #### [address] Basophils/100 WBC (Bld) 1.2 % Normal . [facility] Comment on above: Performed By: #### C BC #### [place] [address] [place] Eosinophils (Bld) [#/Vol] 0.7 10*3/uL High 0.0-0.45 [facility] Comment on above: Performed By: #### C BC #### [address] Eosinophils/100 WBC (Bld) 8.8 % Normal . [facility] Comment on above: Performed By: #### C BC #### [address] Erythrocyte distribution width (RBC) [Ratio] 13.6 % Normal 12.0-14.8 [facility] Comment on above: Performed By: #### C BC #### [address] Hematocrit (Bld) [Volume fraction] 36.8 % Low 38.8-50.0 [facility] Comment on above: Performed By: #### C BC #### [address] Hemoglobin (Bld) [Mass/Vol] 12.9 g/dL Low 13.0-17. 0 [facility] Comment on above: Performed By: #### C BC #### [address] Lymphocytes (Bld) [#/Vol] 1.5 10*3/uL Normal 1.00-4.8 [facility] Comment on above: Performed By: #### C BC #### [address] Lymphocytes/100 WBC (Bld) 18.3 % Normal . [facility] Comment on above: Performed By: #### C BC #### [address] MCH (RBC) [Entitic mass] 33.4 pg Normal 27.5-35.2 [facility] Comment on above: Performed By: #### C BC #### [address] MCV (RBC) [Entitic vol] 95.4 fL Normal 83.5-101 [facility] Comment on above: Performed By: #### C BC #### [address] Mean Corpuscular HGB Conc 35.0 g/dL Normal 32.5-35.6 [facility] Comment on above: Performed By: #### C BC #### [address] Monocytes (Bld) [#/Vol] 0.6 10*3/uL Normal 0.0-0.8 [facility] Comment on above: Performed By: #### C BC #### [address] Monocytes/100 WBC (Bld) 7.6 % Normal . [facility] Comment on above: Performed By: #### C BC #### [address] Neutrophils (Bld) [#/Vol] 5.3 10*3/uL Normal 1.8-7.7 [facility] Comment on above: Performed By: #### C BC #### [address] Neutrophils/100 WBC (Bld) 64.1 % Normal . [facility] Comment on above: Performed By: #### C BC #### [address] NRBC% 0.0 /100{WBC} Normal 0-0.5 [facility] Comment on above: Performed By: #### C BC #### [address] Platelet mean volume (Bld) [Entitic vol] 7.4 fL Normal 6.6-10.1 [facility] Comment on above: Performed By: #### C BC #### [address] Platelets (Bld) [#/Vol] 226 10*3/uL Normal 150-450 [facility] Comment on above: Performed By: #### C BC #### [address] RBC (Bld) [#/Vol] 3.85 10*6/uL Low 3.90-5.60 [facility] Comment on above: Performed By: #### C BC #### [address] WBC (Bld) [#/Vol] 8.3 10*3/uL Normal 4.1-10.5 [facility] Comment on above: Performed By: #### C BC #### [address] Creatinine [Mass/volume] in Serum or PlasmaOrdered By: Onofre Francis on 09-02-2024 Creatinine [Mass/Vol] Creatinine [Mass/volume] in Serum or Plasma High 0.70-1.30 [facility] ECG 12 lead ECGon 09-02-2024 ECG 12 lead ECG [facility] Main [place] [id number] Electrocardiograph Report Signed Patient: Kingston Guevara MR#: [id number] 1733 : 1955 Acct:[id number] Age/Sex: 69 / M ADM Date: 09/02/24 Loc: Room: Type: [facility] Attending Dr: Onofre Francis MD Ordering Provider: [...] Hector MD 0 09/03/24 1525 Normal [facility] Eosinophils Auto (Bld) [#/Vo l]Ordered By: Onofre Francis on 09-02-2024 Eosinophils (Bld) [#/Vol] Automated eosi nophil count High 0.0-0.45 [facility] Eosinophils/100 WBC Auto (Bl d)Ordered By: Onofre Francis on 09-02-2024 Eosinophils/100 WBC (Bld) Automated eosi nophil % . [facility] Erythrocyte distribution wid th Auto (RBC) [Ratio]Ordered By: Onofre Francis on 09-02-2024 Erythrocyte distribution width (RBC) [Ratio] Erythrocyte distribution width [Ratio] by Automated count 12.0-14.8 [facility] Glucose [Mass/volume] in Ser um or PlasmaOrdered By: Onofre Francis on 09-02-2024 Glucose [Mass/Vol] Glucose [Mass/volume ] in Serum or Plasma 70-100 [facility] Comment on above: ADA recommended refe rence rangeRandom Glucose Reference Range is dependent on time and content of last meal. Glucose of more than 200 mg/dL in a nonstressed, ambulatory subject supports the diagnosis of Diabetes Mellitus. Hematocrit Auto (Bld) [Volum e fraction]Ordered By: Onofre Francis on 09-02-2024 Hematocrit (Bld) [Volume fraction] Hematocrit [Volume Fraction] of Blood by Automated count Low 38.8-50.0 [facility] Hemoglobin [Mass/volume] in BloodOrdered By: Onofre Francis on 09-02-2024 Hemoglobin (Bld) [Mass/Vol] Hemoglobin [Mass/volume] in Blood Low 13.0-17.0 [facility] Leukocytes [#/volume] correc mitchell for nucleated erythrocytes in Blood by Automated counOrdered By: Onofre Francis on 09-02-2024 WBC corrected for nucl RBC Auto (Bld) [#/Vol] Leukocytes [#/volume] corrected for nucleated erythrocytes in Blood by Automated coun 4.1-10.5 [facility] Lymphocytes Auto (Bld) [#/Vo l]Ordered By: Onofre Francis on 09-02-2024 Lymphocytes (Bld) [#/Vol] Lymphocytes [#/volume] in Blood by Automated count 1.00-4.8 [facility] Lymphocytes/100 WBC Auto (Bl d)Ordered By: Onofre Francis on 09-02-2024 Lymphocytes/100 WBC (Bld) Lymphocytes/10 0 leukocytes in Blood by Automated count . [facility] MCH Auto (RBC) [Entitic mass ]Ordered By: Onofre Francis on 09-02-2024 MCH (RBC) [Entitic mass] MCH [Entitic ma ss] by Automated count 27.5-35.2 [facility] MCHC Auto (RBC) [Mass/Vol]Or dered By: Onofre Francis on 09-02-2024 MCHC (RBC) [Mass/Vol] MCHC [Mass/volume] by Automated count 32.5-35.6 [facility] MCV Auto (RBC) [Entitic vol] Ordered By: Onofre Francis on 09-02-2024 MCV (RBC) [Entitic vol] MCV [Entitic vol ume] by Automated count 83.5-101 [facility] Monocytes Auto (Bld) [#/Vol] Ordered By: Onofre Francis on 09-02-2024 Monocytes (Bld) [#/Vol] Automated blood monocyte count 0.0-0.8 [facility] Monocytes/100 WBC Auto (Bld) Ordered By: Onofre Francis on 09-02-2024 Monocytes/100 WBC (Bld) Automated monocyte % . [facility] Neutrophils Auto (Bld) [#/Vo l]Ordered By: Onofre Francis on 09-02-2024 Neutrophils (Bld) [#/Vol] Neutrophils [#/volume] in Blood by Automated count 1.8-7.7 [facility] Neutrophils/100 WBC Auto (Bl d)Ordered By: Onofre Francis on 09-02-2024 Neutrophils/100 WBC (Bld) Automated neut rophil % . [facility] No Panel InformationOrdered By: Onofre Francis on 09-02-2024 Estimated GFR (CKD-EPI) 32.739 mL/Min [facility] Creatinine Clearance (Chem N/A [facility] Nucleated erythrocytes [Pres ence] in Blood by Automated countOrdered By: Onofre Francis on 09-02-2024 Nucleated RBC Auto Ql (Bld) Nucleated erythrocytes [Presence] in Blood by Automated count 0-0.5 [facility] Platelet mean volume Auto (B ld) [Entitic vol]Ordered By: Onofre Francis on 09-02-2024 Platelet mean volume (Bld) [Entitic vol] Platelet mean volume [Entitic volume] in Blood by Automated count 6.6-10.1 [facility] Platelets Auto (Bld) [#/Vol] Ordered By: Onofre Francis on 09-02-2024 Platelets (Bld) [#/Vol] Platelets [#/vol ume] in Blood by Automated count 150-450 [facility] Potassium [Moles/volume] in Serum or PlasmaOrdered By: Onofre Francis on 09-02-2024 Potassium [Moles/Vol] Potassium [Moles/volume] in Serum or Plasma 3.5-5.1 [facility] RBC Auto (Bld) [#/Vol]Ordere d By: Onofre Francis on 09-02-2024 RBC (Bld) [#/Vol] Erythrocytes [#/volume] in Blood by Automated count Low 3.90-5.60 [facility] Serum or plasma anion gap de terminationOrdered By: Onofre Francis on 09-02-2024 Anion gap [Moles/Vol] Serum or plasma an ion gap determination 6.0-15.0 [facility] Sodium [Moles/volume] in Ser um or PlasmaOrdered By: Onofre Francis on 09-02-2024 Sodium [Moles/Vol] Sodium [Moles/volume ] in Serum or Plasma Critically low 136-145 [facility] Comment on above: Critical Result Call ed to and read back by: ONOFRE GRANDE at: 09/02/2024 17:42:57 by:[id number] Urea nitrogen [Mass/volume] in Serum or PlasmaOrdered By: Onofre Francis on 09-02-2024 Urea nitrogen [Mass/Vol] Urea nitrogen [Mass/volume] in Serum or Plasma 02-18 [facility] WBC Auto (Bld) [#/Vol]Ordere d By: Onofre Francis on 09-02-2024 WBC (Bld) [#/Vol] Leukocytes [#/volume ] in Blood by Automated count 4.1-10.5 [facility] Blood Urea Nitrogenon 2024 Urea nitrogen [Mass/Vol] 14 mg/dL Normal 02-18 [facility] Comment on above: Performed By: #### B UN, CREAT ####[facility] [id number] [place] [id number] [facility] Creatinineon 08-30-2024 Creatinine [Mass/Vol] 2.19 mg/dL High 0.70-1.30 [facility] Comment on above: Performed By: #### B UN, CREAT ####[facility] [id number] [place] [id number] [place] Creatinine Clr Calc Pharmacy 33.60 Normal [facility] Comment on above: Result Comment: PERF ORMED BY: [facility] [address] [place] [address] PATHOLOGIST NETWORK COORDINATOR GARCÍA AZUL M.D. Performed By: #### B UN, CREAT ####[facility] [address] [place] [id number] [facility] Estimated GFR 32.202 mL/Min Normal [facility] Comment on above: Performed By: #### B UN, CREAT ####[facility] [id number] [place] [id number] [facility] Creatinine [Mass/volume] in Serum or PlasmaOrdered By: Onofre Francis on 08-30-2024 Creatinine [Mass/Vol] Creatinine [Mass/volume] in Serum or Plasma High 0.70-1.30 [facility] No Panel InformationOrdered By: Onofre Francis on 08-30-2024 Estimated GFR (CKD-EPI) 32.202 mL/Min [facility] Creatinine Clearance (Chem 33.60 [facility] Urea nitrogen [Mass/volume] in Serum or PlasmaOrdered By: Onofre Francis on 08-30-2024 Urea nitrogen [Mass/Vol] Urea nitrogen [Mass/volume] in Serum or Plasma 7-25 [facility] Basophils Auto (Bld) [#/Vol] on 07-07-2024 Basophils (Bld) [#/Vol] Automated basoph il count 0.0-0.1 [facility] Basophils/100 WBC Auto (Bld) on 07-07-2024 Basophils/100 WBC (Bld) Automated basophil % 0. 2-2.0 [facility] Cholesterol in LDL Calc [Mas s/Vol]on 07-07-2024 Cholesterol in LDL [Mass/Vol] Cholesterol in LDL [Mass/volume] in Serum or Plasma by calculation [facility] Comment on above: <100 mg/dl [id number] 0-129 mg/dl NEAR OR ABOVE [id number] mg/dl BORDERLINE [id number] mg/dl HIGH>190 mg/dl VERY HIGH Cholesterol in VLDL Calc [Ma ss/Vol]on 07-07-2024 Cholesterol in VLDL [Mass/Vol] Cholesterol in VLDL [Mass/volume] in Serum or Plasma by calculation [facility] Eosinophils/100 WBC Auto (Bl d)on 07-07-2024 Eosinophils/100 WBC (Bld) Automated eosi nophil % High 0.9-7.0 [facility] Erythrocyte distribution wid th Auto (RBC) [Ratio]on 07-07-2024 Erythrocyte distribution width (RBC) [Ratio] Erythrocyte distribution width [Ratio] by Automated count 11.0-15.0 [facility] Estimated glomerular filtrat ion rate (GFR) non- Americanon 07-07-2024 GFR/1.73 sq M.predicted among non-blacks MDRD (S/P/Bld) [Vol rate/Area] Estimated glomerular filtration rate (GFR) non- Low >=60 mL/min/1.73 m 2 [facility] Globulin Calc (S) [Mass/Vol] on 07-07-2024 Globulin (S) [Mass/Vol] Serum globulin measurement by calculation (mass/volume) [facility] Hematocrit Auto (Bld) [Volum e fraction]on 07-07-2024 Hematocrit (Bld) [Volume fraction] Hematocrit [Volume Fraction] of Blood by Automated count Low 42.0-54.0 [facility] Hemoglobin [Mass/volume] in Bloodon 07-07-2024 Hemoglobin (Bld) [Mass/Vol] Hemoglobin [Mass/volume] in Blood Low 14.0-18.0 [facility] Laboratory - Chemistry and C hemistry - challengeon 07-07-2024 Albumin [Mass/Vol] 3.5 g/dL 3.4-5.0 [facility] ALP [Catalytic activity/Vol] 68 U/L 46-116 [facility] ALT [Catalytic activity/Vol] 19 U/L 16-63 [facility] AST [Catalytic activity/Vol] 22 U/L 15-37 [facility] Bilirubin [Mass/Vol] 0.5 mg/dL 0.2-1.0 [place] Calcium [Mass/Vol] 8.6 mg/dL 8.5-10.1 [facility] Chloride [Moles/Vol] 90 mmol/L Low 98-107 [place] Cholesterol [Mass/Vol] 114 mg/dL <=200 [facility] Cholesterol in HDL [Mass/Vol] 34 mg/dL Low 40-60 [facility] Comment on above: > or =60 mg/dl - LOW CARDIOVASCULAR RISK<40 mg/dl - HIGH CARDIOVASCULAR RISK CO2 [Moles/Vol] 25.0 mmol/L 21.0-32.0 [facility] Creatinine [Mass/Vol] 2.52 mg/dL High 0.70-1.30 [facility] GFR/1.73 sq M.predicted MDRD (S/P/Bld) [Vol rate/Area] 31 mL/min/{1.73_m2} Low >=60 mL/min/1.73 m 2 [facility] Glucose [Mass/Vol] 89 mg/dL 74-106 [facility] Potassium [Moles/Vol] 4.8 mmol/L 3.5-5.1 [facility] Protein [Mass/Vol] 7.0 g/dL 6.4-8.2 [facility] Sodium [Moles/Vol] 122 mmol/L Critically low 136-145 [facility] Comment on above: RESULTS CALLED TO DEANNA MCKNIGHT RMA Triglyceride [Mass/Vol] 119 mg/dL <=150 [facility] Urea nitrogen [Mass/Vol] 18.0 mg/dL 7.0-18.0 [facility] Urea nitrogen/Creatinine [Mass ratio] 7.1 mg/mg [facility] Laboratory - Hematology and Cell countson 07-07-2024 Immature granulocytes/100 WBC (Bld) 0.4 % 0.0-0.5 [facility] Leukocytes [#/volume] correc mitchell for nucleated erythrocytes in Blood by Automated counon 07-07-2024 WBC corrected for nucl RBC Auto (Bld) [#/Vol] Leukocytes [#/volume] corrected for nucleated erythrocytes in Blood by Automated coun 4.0-11.0 [facility] Lymphocytes Auto (Bld) [#/Vo l]on 07-07-2024 Lymphocytes (Bld) [#/Vol] Lymphocytes [#/volume] in Blood by Automated count 1.2-3.8 [facility] Lymphocytes/100 WBC Auto (Bl d)on 07-07-2024 Lymphocytes/100 WBC (Bld) Lymphocytes/10 0 leukocytes in Blood by Automated count Low 20.5-60.0 [facility] MCH Auto (RBC) [Entitic mass ]on 07-07-2024 MCH (RBC) [Entitic mass] MCH [Entitic ma ss] by Automated count 25.9-34.0 [facility] MCHC Auto (RBC) [Mass/Vol]on 07-07-2024 MCHC (RBC) [Mass/Vol] MCHC [Mass/volume] by Automated count High 29.9-35.2 [facility] MCV Auto (RBC) [Entitic vol] on 07-07-2024 MCV (RBC) [Entitic vol] MCV [Entitic vol ume] by Automated count 80.0-94.0 [facility] Monocytes Auto (Bld) [#/Vol] on 07-07-2024 Monocytes (Bld) [#/Vol] Automated blood monocyte count 0.3-0.8 [facility] Monocytes/100 WBC Auto (Bld) on 07-07-2024 Monocytes/100 WBC (Bld) Automated monocyte % 1. 7-12.0 [facility] Neutrophils Auto (Bld) [#/Vo l]on 07-07-2024 Neutrophils (Bld) [#/Vol] Neutrophils [#/volume] in Blood by Automated count 1.4-6.5 [facility] Neutrophils/100 WBC Auto (Bl d)on 07-07-2024 Neutrophils/100 WBC (Bld) Automated neut rophil % 43.0-75.0 [facility] No Panel Informationon 07-07 Eosinophils # (Auto) 0.8 10 3/uL High 0.0-0.7 [facility] Immature Granulocyte # (Auto) 0.03 10 3/uL 0.00-0.03 [facility] Prostate Specific Antigen Screen 0.82 ng/mL <=4.00 [facility] Platelet mean volume Auto (B ld) [Entitic vol]on 07-07-2024 Platelet mean volume (Bld) [Entitic vol] Platelet mean volume [Entitic volume] in Blood by Automated count Low 9.5-13.5 [facility] Platelets Auto (Bld) [#/Vol] on 07-07-2024 Platelets (Bld) [#/Vol] Platelets [#/vol ume] in Blood by Automated count 150-450 [facility] RBC Auto (Bld) [#/Vol]on RBC (Bld) [#/Vol] Erythrocytes [#/volume] in Blood by Automated count Low 4.70-6.10 [facility] Serum or plasma albumin/glob ulin mass ratioon 07-07-2024 Albumin/Globulin [Mass ratio] Serum or plasma albumin/globulin mass ratio [facility] Serum or plasma anion gap de terminationon 07-07-2024 Anion gap [Moles/Vol] Serum or plasma an ion gap determination [facility] Serum or plasma total choles terol/high density lipoprotein (HDL) cholesterol mass edith 07-07-2024 Cholesterol.total/Cholestero l in HDL [Mass ratio] Serum or plasma total cholesterol/high density lipoprotein (HDL) cholesterol mass rat [facility] Comment on above: 3.3 - 4.4 LOW RISK4. 4 - 7.1 AVERAGE RISK7.1 - 11.0 MODERATE RISK>11.0 HIGH RISK Erythrocyte distribution wid th Auto (RBC) [Ratio]on 05-17-2024 Erythrocyte distribution width (RBC) [Ratio] 12.5 % 11.0-15.0 [facility] Estimated glomerular filtrat ion rate (GFR) non- Americanon 05-17-2024 GFR/1.73 sq M.predicted among non-blacks MDRD (S/P/Bld) [Vol rate/Area] 27 mL/min/{1.73_m2} Low >=60 mL/min/1.73 m 2 [facility] Hematocrit Auto (Bld) [Volum e fraction]on 05-17-2024 Hematocrit (Bld) [Volume fraction] 36.5 % Low 42.0-54.0 [facility] Hemoglobin [Mass/volume] in Bloodon 05-17-2024 Hemoglobin (Bld) [Mass/Vol] 13.0 g/dL Low 14.0-18. 0 [facility] Iron binding capacity [Mass/ volume] in Serum or Plasmaon 05-17-2024 Iron binding capacity [Mass/Vol] 177.0 ug/dL Low 250.0-450.0 [facility] Iron saturation [Mass Fracti on] in Serum or Plasmaon 05-17-2024 Iron saturation [Mass fraction] 35.0 % [facility] Laboratory - Chemistry and C hemistry - challengeon 05-17-2024 Albumin [Mass/Vol] 3.2 g/dL Low 3.4-5.0 [facility] Calcium [Mass/Vol] 8.4 mg/dL Low 8.5-10.1 [facility] Chloride [Moles/Vol] 93 mmol/L Low 98-107 [place] CO2 [Moles/Vol] 24.1 mmol/L 21.0-32.0 [facility] Creatinine [Mass/Vol] 2.43 mg/dL High 0.70-1.30 [facility] Ferritin [Mass/Vol] 297.0 ng/mL 26.0-388.0 [place] GFR/1.73 sq M.predicted MDRD (S/P/Bld) [Vol rate/Area] 33 mL/min/{1.73_m2} Low >=60 mL/min/1.73 m 2 [facility] Glucose [Mass/Vol] 95 mg/dL 74-106 [facility] Iron [Mass/Vol] 62.0 ug/dL Low 65.0-175.0 [facility] Magnesium [Mass/Vol] 2.0 mg/dL 1.8-2.4 [place] Potassium [Moles/Vol] 4.7 mmol/L 3.5-5.1 [facility] Sodium [Moles/Vol] 128 mmol/L Low 136-145 [facility] Urate [Mass/Vol] 5.6 mg/dL 3.5-7.2 [facility] Urea nitrogen [Mass/Vol] 17.0 mg/dL 7.0-18.0 [facility] Urea nitrogen/Creatinine [Mass ratio] 7.0 mg/mg [facility] Bilirubin Ql (U) Negative NEGATIVE [facility] Glucose (U) [Mass/Vol] Negative NEGATIVE Fi relaCounts include 234 beds at the [facility] Ketones Ql (U) Negative NEGATIVE [facility] pH (U) 6.0 [pH] 5.0-9.0 [facility] Specific gravity (U) [Rel density] <=1.005 Abnormal 1.005-1.025 [facility] Urobilinogen Qn (U) 0.2 {Edgar'U}/dL 0.2-1.0 [facility] Laboratory - Specimen inform ationon 05-17-2024 Appearance (U) CLEAR CLEAR [facility] Color (U) LT. YELLOW YELLOW [facility] Laboratory - Urinalysison Leukocyte esterase Test strip Ql (U) Negative NEGATIVE [facility] Mucus Ql (Urine sed) NONE SEEN NONE SEEN [place] Nitrite Ql (U) Negative NEGATIVE [facility] Protein (U) [Mass/Vol] 14.8 mg/dL High <=11.9 [facility] Protein Ql (U) Negative NEG/TRACE [facility] Leukocytes [#/volume] correc mitchell for nucleated erythrocytes in Blood by Automated counon 05-17-2024 WBC corrected for nucl RBC Auto (Bld) [#/Vol] 8.6 10 3/uL 4.0-11.0 [facility] MCH Auto (RBC) [Entitic mass ]on 05-17-2024 MCH (RBC) [Entitic mass] 33.2 pg 25.9-34.0 [facility] MCHC Auto (RBC) [Mass/Vol]on 05-17-2024 MCHC (RBC) [Mass/Vol] 35.6 g/dL High 29.9-35.2 [facility] MCV Auto (RBC) [Entitic vol] on 05-17-2024 MCV (RBC) [Entitic vol] 93.1 fL 80.0-94.0 [facility] No Panel Informationon 05-17 25-Hydroxy Vitamin D Total 81.1 ng/mL [facility] Comment on above: <20 ng/mL Vit D defi cient20-<30 ng/mL Vit D [id number] ng/mL Vit D sufficient>100 ng/mL Potential Toxicity Parathyroid Hormone (Intact) 51 pg/mL 15-65 [facility] Comment on above: Performed at: [facility] [id number] [place], [place] [id number] Director: Yakov Sheikh PhD, Phone: [phone] Phosphorus Level 3.4 mg/dL 2.6-4.7 [facility] Urine Bacteria TRACE #/HPF Abnormal NONE SEEN [facility] Urine Culture Reflexed NO [facility] Urine Occult Blood Negative NEGATIVE [facility] Urine Other Casts NONE SEEN #/LPF NONE SEEN [facility] Urine Other Crystals None Seen #/HPF None Seen [facility] Urine Random Creatinine 40.25 mg/dL 20.0 0-300.0 0 [facility] Urine RBC NONE SEEN #/HPF 0-2 [facility] Urine Squamous Epithelial Cells RARE #/LPF NONE/RARE [facility] Urine WBC NONE SEEN #/HPF NONE SEEN [facility] Platelet mean volume Auto (B ld) [Entitic vol]on 05-17-2024 Platelet mean volume (Bld) [Entitic vol] 9.1 fL Low 9.5-13.5 [facility] Platelets Auto (Bld) [#/Vol] on 05-17-2024 Platelets (Bld) [#/Vol] 283 10 3/uL 150-450 [facility] RBC Auto (Bld) [#/Vol]on RBC (Bld) [#/Vol] 3.92 10 6/uL Low 4.70-6.10 [facility] Serum or plasma anion gap de terminationon 05-17-2024 Anion gap [Moles/Vol] 15.6 mmol/L [facility] Urine protein/creatinine rat ioon 05-17-2024 Protein/Creatinine (U) [Ratio] 0.37 [facility] Erythrocyte distribution wid th Auto (RBC) [Ratio]on 01-05-2024 Erythrocyte distribution width (RBC) [Ratio] 12.3 % 11.0-15.0 [facility] Estimated glomerular filtrat ion rate (GFR) non- Americanon 01-05-2024 GFR/1.73 sq M.predicted among non-blacks MDRD (S/P/Bld) [Vol rate/Area] 26 mL/min/{1.73_m2} >=60 [facility] Hematocrit Auto (Bld) [Volum e fraction]on 01-05-2024 Hematocrit (Bld) [Volume fraction] 34.2 % 42.0-54.0 [facility] Hemoglobin [Mass/volume] in Bloodon 01-05-2024 Hemoglobin (Bld) [Mass/Vol] 12.3 g/dL 14.0-18. 0 [facility] Laboratory - Chemistry and C hemistry - challengeon 01-05-2024 Albumin [Mass/Vol] 3.9 g/dL 3.4-5.0 [facility] Calcium [Mass/Vol] 8.9 mg/dL 8.5-10.1 [facility] Chloride [Moles/Vol] 91 mmol/L 98-107 [place] CO2 [Moles/Vol] 24.4 mmol/L 21.0-32.0 [facility] Creatinine [Mass/Vol] 2.46 mg/dL 0.70-1.30 [facility] Ferritin [Mass/Vol] 275.0 ng/mL 26.0-388.0 [place] GFR/1.73 sq M.predicted MDRD (S/P/Bld) [Vol rate/Area] 32 mL/min/{1.73_m2} >=60 [facility] Glucose [Mass/Vol] 67 mg/dL 74-106 [facility] Magnesium [Mass/Vol] 2.0 mg/dL 1.8-2.4 [place] Potassium [Moles/Vol] 4.9 mmol/L 3.5-5.1 [facility] Sodium [Moles/Vol] 124 mmol/L 136-145 [facility] Comment on above: RESULTS CALLED TO ANABELL VILLANUEVA CALLED TO []@BY Gil Stevenson MLT at 1636 Urate [Mass/Vol] 6.8 mg/dL 3.5-7.2 [facility] Urea nitrogen [Mass/Vol] 21.0 mg/dL 7.0-18.0 [facility] Urea nitrogen/Creatinine [Mass ratio] 8.5 mg/mg [facility] Bilirubin Ql (U) Negative NEGATIVE [facility] Glucose (U) [Mass/Vol] Negative NEGATIVE [facility] Ketones Ql (U) Negative NEGATIVE [facility] pH (U) 6.0 [pH] 5.0-9.0 [facility] Specific gravity (U) [Rel density] <=1.005 1.005-1.025 [facility] Urobilinogen Qn (U) 1.0 {Edgar'U}/dL 0.2-1.0 [facility] Laboratory - Specimen inform ationon 01-05-2024 Appearance (U) CLEAR CLEAR [facility] Color (U) LT. YELLOW YELLOW [facility] Laboratory - Urinalysison Leukocyte esterase Test strip Ql (U) Negative NEGATIVE [facility] Mucus Ql (Urine sed) NONE SEEN NONE SEEN [place] Nitrite Ql (U) Negative NEGATIVE [facility] Protein (U) [Mass/Vol] 13.4 mg/dL <=11.9 [facility] Protein Ql (U) Negative NEG/TRACE [facility] Leukocytes [#/volume] correc mitchell for nucleated erythrocytes in Blood by Automated counon 01-05-2024 WBC corrected for nucl RBC Auto (Bld) [#/Vol] 7.8 10 3/uL 4.0-11.0 [facility] MCH Auto (RBC) [Entitic mass ]on 01-05-2024 MCH (RBC) [Entitic mass] 33.1 pg 25.9-34.0 [facility] MCHC Auto (RBC) [Mass/Vol]on 01-05-2024 MCHC (RBC) [Mass/Vol] 36.0 g/dL 29.9-35.2 [facility] MCV Auto (RBC) [Entitic vol] on 01-05-2024 MCV (RBC) [Entitic vol] 91.9 fL 80.0-94.0 [facility] No Panel Informationon 01-04 25-Hydroxy Vitamin D Total 77.4 ng/mL [facility] Comment on above: <20 ng/mL Vit D defi cient20-<30 ng/mL Vit D lgwotrlroald84-599 ng/mL Vit D sufficient>100 ng/mL Potential Toxicity Parathyroid Hormone (Intact) 43 pg/mL 15-65 [facility] Comment on above: Performed at: - [address] [id number] Director: Yakov Sheikh PhD, Phone: [phone] Phosphorus Level 3.3 mg/dL 2.6-4.7 [facility] Urine Bacteria NONE SEEN #/HPF NONE SEEN [facility] Urine Occult Blood Negative NEGATIVE [facility] Urine Other Casts NONE SEEN #/LPF NONE SEEN [facility] Urine Other Crystals None Seen #/HPF None Seen [facility] Urine Random Creatinine 52.39 mg/dL 20.0 0-300.0 0 [facility] Urine RBC 0-2 #/HPF 0-2 [facility] Urine Squamous Epithelial Cells NONE SEEN #/LPF NONE/RARE [facility] Urine WBC 0-2 #/HPF NONE SEEN [facility] Platelet mean volume Auto (B ld) [Entitic vol]on 01-05-2024 Platelet mean volume (Bld) [Entitic vol] 9.3 fL 9.5-13.5 [facility] Platelets Auto (Bld) [#/Vol] on 01-05-2024 Platelets (Bld) [#/Vol] 211 10 3/uL 150-450 [facility] RBC Auto (Bld) [#/Vol]on RBC (Bld) [#/Vol] 3.72 10 6/uL 4.70-6.10 [facility] Serum or plasma anion gap de terminationon 01-05-2024 Anion gap [Moles/Vol] 13.5 mmol/L [facility] Urine protein/creatinine rat ioon 01-05-2024 Protein/Creatinine (U) [Ratio] 0.26 [facility] Consent for Procedure/Surger yon 09-15-2023 Consent for Procedure/Surgery [id number]#1 [facility] Ambulatory Visit Summary KINGSTON COLES :1955 Visit Date:09/12/2023 Ambulatory Visit Instructions [...] Ada Soares MD Where: [facility] Urology Office/Clinic Noteon 09-12-2023 Urology [...] disorders of bladder) CT AP wo Con @[facility] 08/04/23 - right urinary bladder wall thickening [...] of kidney (terminal)) CT AP wo Con @[facility] 08/04/23 - left atrophic kidney 07/08/23 - [...] urothelial ca. 7. Aspirin long-term use (Z79.82: long-term (current) use of aspirin) Aspirin 81mg. [1] Follow-up With When Contact Information Rodger BRIDGES, Ada Morris, URL, [facility] [address] [place] [phone] Additional Instructions: 6 mos (new med) Patient Education Cystoscopy IHumera, personally scribed for Dr. Soares on 09/12/2023 08:09:10. . Documentation recorded by the Humera hickman, accurately reflects the services(s) I performed and decisions made by me. Authenticated by Dr. Soares (more content not included)... Normal [facility] Comment on above: Result Comment: Elec tronically Signed By: Ada Soares MD\.br\Date and Time Signed: 09/12/23 08:18 EST\.br\Electronically Co-Signed By: Humera Jones\.deanna\Date and Time Co-Signed: 09/12/23 08:09 EST Physician Referralon 024 Physician Referral [id number] .00TIFF Normal [facility] Screenson 09-02-2023 Screens [id number]# 1.00TIFF Normal [facility] Screens [id number]# 1.00TIFF [facility] Ambulatory Visit Summaryon 0 08-27-2023 [...] including vitamins, herbs, eye drops, creams, and cvwq-syr-fpiahye medicines. ? Any problems you or family [...] tells you to take them. ? Taking egzy-igh-zolzrdn medicines, vitamins, herbs, and supplements. Tests You may have an exam or testing, such as: ? X-rays of the bladder, urethra, or kidneys. ? CT scan of the abdome (more content not included)... Normal [facility] Patient Educationon 08-27-19 Patient Education Nephrology [...] Spinach (cooked), rhubarb, beets, sweet potatoes, and Malaysian chard. ? Peanuts. ? Potato chips, syriac fries, and baked potatoes with skin on. ? Nuts and nut products. ? Chocolate. ? If you regularly take a diuretic medicine, make sure to eat at least 1 or 2 servings of fruits or vegetables that are high in potassium each day. These include: ? Avocado. ? Banana. ? Porter, prune, carrot, or tomato juice. ? Baked [...] fish oil, or vitamin B6. ? Take dgvu-zzn-fgptscp and prescription medicines only as told by your health care provider. These include supplements. What foods sh (more content not included)... Normal [facility] Amphetamine Screen Ql (U)Ord ered By: Sixto Dobson on 08-05-2023 Amphetamines Ql (U) Negative Negative [facility] Barbiturates [Presence] in U rine by Screen methodOrdered By: Sixto Dobson on 08-05-2023 Barbiturates Screen Ql (U) Negative Negative [facility] Benzodiazepines Screen Ql (U )Ordered By: Sixto Dobson on 08-05-2023 Benzodiazepines Ql (U) Negative Negative [facility] Benzoylecgonine [Presence] i n Urine by Screen methodOrdered By: Sixto Dobson on 08-05-2023 Benzoylecgonine Screen Ql (U) Negative Negative [facility] Cannabinoids [Presence] in U rine by Screen methodOrdered By: Sixto Dobson on 08-05-2023 Cannabinoids Screen Ql (U) Positive Negative [facility] Comment on above: These are unconfirme d results and should not be used for legal purposes. Drug Cut-Off Concentration: AMPH 1000 ng/mL NORMA 200 ng/mL LUIS 200 ng/mL COCM 300 ng/mL OP 300 ng/mL PCP 25 ng/mL THC 20 ng/mL Opiates [Presence] in Urine by Screen methodOrdered By: Sixto Dobson on 08-05-2023 Opiates Screen Ql (U) Negative Negative [facility] Phencyclidine Screen Ql (U)O rdered By: Sixto Dobson on 08-05-2023 Phencyclidine Ql (U) Negative Negative [place] CT LUNG CANCER SCREENINGon 0 12-08-2021 CT [...] by: ADELINA BISHOP Date: 2021-12-08 11:21 [facility] Vital Signs Date Time Vital Sign Value Performing Clinician Facility 10-13-2024 10:56-0400 Body temperature 97.8 [degF] Jeremy Ball DO Work Phone: [facility] 10-13-2024 10:56-0400 Diastolic blood pressure 50 mm[Hg] Jeremy Ball DO Work Phone: [facility] 10-13-2024 10:56-0400 Heart rate 73 /min Jeremy Ball DO Work Phone: [facility] 10-13-2024 10:56-0400 SaO2% (BldA) [Mass fraction] 98 % Jeremy Ball DO Work Phone: [facility] 10-13-2024 10:56-0400 Systolic blood pressure 104 mm[Hg] Jeremy Ball DO Work Phone: [facility] 09-23-2024 10:37-0500 Body height 182.88 cm Jeremy Ball DO Work Phone: [facility] 09-23-2024 10:37-0500 Body mass index (BMI) [Ratio] 21.2 kg/m2 Jeremy Ball DO Work Phone: [facility] 09-23-2024 10:37-0500 Body temperature 97.4 [degF] Jeremy Ball DO Work Phone: [facility] 09-23-2024 10:37-0500 Body weight 70.93 kg Jeremy Ball DO Work Phone: [facility] 09-23-2024 10:37-0500 Diastolic blood pressure 70 mm[Hg] Jeremy Ball DO Work Phone: [facility] 09-23-2024 10:37-0500 Heart rate 98 /min Jeremy Ball DO Work Phone: [facility] 09-23-2024 10:37-0500 Respiratory rate 18 /min Jeremy Ball DO Work Phone: [facility] 09-23-2024 10:37-0500 SaO2% (BldA) [Mass fraction] 100 % Jeremy Ball DO Work Phone: [facility] 09-23-2024 10:37-0500 Systolic blood pressure 114 mm[Hg] Jeremy Ball DO Work Phone: [facility] 09-21-2024 10:40-0500 Body height 182.88 cm Jeremy Ball DO Work Phone: [facility] 09-21-2024 10:40-0500 Body mass index (BMI) [Ratio] 21.4 kg/m2 Jeremy Ball DO Work Phone: [facility] 09-21-2024 10:40-0500 Body weight 71.66 kg Jeremy Ball DO Work Phone: [facility] 09-21-2024 10:40-0500 Diastolic blood pressure 68 mm[Hg] Jeremy Ball DO Work Phone: [facility] 09-21-2024 10:40-0500 Heart rate 90 /min Jeremy Ball DO Work Phone: [facility] 09-21-2024 10:40-0500 Respiratory rate 12 /min Jeremy Ball DO Work Phone: [facility] 09-21-2024 10:40-0500 Systolic blood pressure 107 mm[Hg] Jeremy Ball DO Work Phone: [facility] 09-15-2024 11:57-0500 Body temperature 98.2 [degF] Jeremy Ball DO Work Phone: [facility] 09-15-2024 11:57-0500 Diastolic blood pressure 56 mm[Hg] Jeremy Ball DO Work Phone: [facility] 09-15-2024 11:57-0500 Heart rate 50 /min Jeremy Ball DO Work Phone: [facility] 09-15-2024 11:57-0500 Respiratory rate 18 /min Jeremy Ball DO Work Phone: [facility] 09-15-2024 11:57-0500 SaO2% (BldA) [Mass fraction] 98 % Jeremy Ball DO Work Phone: [facility] 09-15-2024 11:57-0500 Systolic blood pressure 106 mm[Hg] Jeremy Ball DO Work Phone: [facility] 09-14-2024 15:33-0500 Inhaled oxygen flow rate 8 L/min Jeremy Ball DO Work Phone: [facility] 09-14-2024 12:05-0500 Body height 182.88 cm Jeremy Ball DO Work Phone: [facility] 09-14-2024 12:05-0500 Body weight 75.4 kg Jeremy Ball DO Work Phone: [facility] 09-01-2024 10:130500 Body height 182.88 cm Jeremy Ball DO Work Phone: [facility] 09-01-2024 10:13-0500 Body mass index (BMI) [Ratio] 21.7 kg/m2 Jeremy Ball DO Work Phone: [facility] 09-01-2024 10:13-0500 Body temperature 98.4 [degF] Jeremy Ball DO Work Phone: [facility] 09-01-2024 10:13-0500 Body weight 72.57 kg Jeremy Ball DO Work Phone: [facility] 09-01-2024 10:13-0500 Diastolic blood pressure 58 mm[Hg] Jeremy Ball DO Work Phone: [facility] 09-01-2024 10:13-0500 Heart rate 90 /min Jeremy Ball DO Work Phone: [facility] 09-01-2024 10:13-0500 SaO2% (BldA) [Mass fraction] 98 % Jeremy Ball DO Work Phone: [facility] 09-01-2024 10:13-0500 Systolic blood pressure 110 mm[Hg] Jeremy Ball DO Work Phone: [facility] 08-30-2024 12:48-0500 Diastolic blood pressure 76 mm[Hg] Jeremy Ball DO Work Phone: [facility] 08-30-2024 12:48-0500 Heart rate 58 /min Jeremy Ball DO Work Phone: [facility] 08-30-2024 12:48-0500 Respiratory rate 16 /min Jeremy Ball DO Work Phone: [facility] 08-30-2024 12:48-0500 SaO2% (BldA) [Mass fraction] 99 % Jeremy Ball DO Work Phone: [facility] 08-30-2024 12:48-0500 Systolic blood pressure 136 mm[Hg] Jeremy Ball DO Work Phone: [facility] 08-30-2024 12:18-0500 Inhaled oxygen flow rate 3 L/min Jeremy Ball DO Work Phone: [facility] 08-30-2024 09:14-0500 Body height 182.88 cm Jeremy Ball DO Work Phone: [facility] 08-30-2024 09:14-0500 Body weight 72.57 kg Jeremy Ball DO Work Phone: [facility] 08-26-2024 11:11-0500 Body height 182.[address] [facility] 08-26-2024 11:11-0500 Body mass index (BMI) [Ratio] 21.7 kg/m2 [facility] 08-26-2024 11:11-0500 Body temperature 97.8 [degF] [facility] 08-26-2024 11:11-0500 Body weight 72.[address] [facility] 08-26-2024 11:11-0500 Diastolic blood pressure 68 mm[Hg] [facility] 08-26-2024 11:11-0500 Heart rate 63 /min [facility] 08-26-2024 11:11-0500 Respiratory rate 16 /min [facility] 08-26-2024 11:11-0500 SaO2% (BldA) [Mass fraction] 97 % [facility] 08-26-2024 11:11-0500 Systolic blood pressure 116 mm[Hg] [facility] 07-12-2024 10:04-0500 Body height 182.[address] [facility] 07-12-2024 10:04-0500 Body mass index (BMI) [Ratio] 22.1 kg/m2 [facility] 07-12-2024 10:04-0500 Body weight 74.[address] [facility] 07-12-2024 10:04-0500 Diastolic blood pressure 70 mm[Hg] [facility] 07-12-2024 10:04-0500 Heart rate 84 /min [facility] [facility] 07-12-2024 10:04-0500 Respiratory rate 12 /min [facility] 07-12-2024 10:04-0500 Systolic blood pressure 122 mm[Hg] [facility] 05-20-2024 11:09-0400 Body height 182.[address] [facility] 05-20-2024 11:09-0400 Body mass index (BMI) [Ratio] 21.2 kg/m2 [facility] 05-20-2024 11:09-0400 Body temperature 98.1 [degF] [facility] 05-20-2024 11:09-0400 Body weight 70.[address] [facility] 05-20-2024 11:09-0400 Diastolic blood pressure 66 mm[Hg] [facility] 05-20-2024 11:09-0400 Heart rate 76 /min [facility] 05-20-2024 11:09-0400 Respiratory rate 18 /min [facility] 05-20-2024 11:09-0400 SaO2% (BldA) [Mass fraction] 99 % [facility] 05-20-2024 11:09-0400 Systolic blood pressure 116 mm[Hg] [facility] 01-15-2024 13:04-0400 Body height 182.[address] [facility] 01-15-2024 13:04-0400 Body mass index (BMI) [Ratio] 21.5 kg/m2 [facility] 01-15-2024 13:04-0400 Body temperature 98.3 [degF] [facility] 01-15-2024 13:04-0400 Body weight 72.[address] [facility] 01-15-2024 13:04-0400 Diastolic blood pressure 60 mm[Hg] [facility] 01-15-2024 13:04-0400 Heart rate 78 /min [facility] 01-15-2024 13:04-0400 Respiratory rate 16 /min [facility] 01-15-2024 13:04-0400 SaO2% (BldA) [Mass fraction] 96 % [facility] 01-15-2024 13:04-0400 Systolic blood pressure 132 mm[Hg] [facility] 01-08-2024 10:12-0400 Body height 182.[address] [facility] 01-08-2024 10:12-0400 Body mass index (BMI) [Ratio] 21.2 kg/m2 [facility] 01-08-2024 10:12-0400 Body weight 70.[address] [facility] 01-08-2024 10:12-0400 Diastolic blood pressure 69 mm[Hg] [facility] 01-08-2024 10:12-0400 Heart rate 66 /min [facility] 01-08-2024 10:12-0400 Respiratory rate 12 /min [facility] 01-08-2024 10:12-0400 Systolic blood pressure 127 mm[Hg] [facility] 08-05-2023 15:44-0500 Diastolic blood pressure 82 mm[Hg] DO Jeremy Ball Work Phone: [facility] 08-05-2023 15:44-0500 Heart rate 78 /min DO Jeremy Ball Work Phone: [facility] 08-05-2023 15:44-0500 Respiratory rate 16 /min DO Jeremy Ball Work Phone: [facility] 08-05-2023 15:44-0500 SaO2% (BldA) [Mass fraction] 97 % DO Jeremy Ball Work Phone: [facility] 08-05-2023 15:44-0500 Systolic blood pressure 157 mm[Hg] DO Jeremy Ball Work Phone: [facility] 08-05-2023 13:26-0500 Body height 182.88 cm DO Jeremy Ball Work Phone: [facility] 08-05-2023 13:26-0500 Body weight 68.03 kg DO Jeremy Ball Work Phone: [facility] 07-24-2023 12:40-0500 Body height 182.88 cm Young Yash Other [facility] Other 07-24-2023 12:40-0500 Body mass index (BMI) [Ratio] 21.83 kg/m2 Young Yash Other [facility] Other 07-24-2023 12:40-0500 Body temperature 98.6 [degF] Young Yash Other [facility] Other 07-24-2023 12:40-0500 Body weight 73.03 kg Young Yash Other [facility] Other 07-24-2023 12:40-0500 Diastolic blood pressure 62 mm[Hg] Young Yash Other [facility] Other 07-24-2023 12:40-0500 Respiratory rate 16 /min Young Yash Other [facility] Other 07-24-2023 12:40-0500 SaO2% (BldA) [Mass fraction] 100 % Young Yash Other [facility] Other 07-24-2023 12:40-0500 Systolic blood pressure 130 mm[Hg] Young Yash Other [facility] Other 07-09-2023 10:30-0500 Body height 182.88 cm Jeremy Ball Other [facility] Other 07-09-2023 10:30-0500 Body mass index (BMI) [Ratio] 21.13 kg/m2 Jeremy Ball Other [facility] Other 07-09-2023 10:30-0500 Body weight 70.67 kg Jeremy Ball Other [facility] Other 07-09-2023 10:30-0500 Diastolic blood pressure 69 mm[Hg] Jeremy Ball Other [facility] Other 07-09-2023 10:30-0500 Respiratory rate 12 /min Jeremy Ball Other [facility] Other 07-09-2023 10:30-0500 Systolic blood pressure 131 mm[Hg] Jeremy Ball Other [facility] Other 01-29-2023 13:30-0400 Body height 182.88 cm Jeremy Ball Other [facility] Other 01-29-2023 13:30-0400 Body mass index (BMI) [Ratio] 22.32 kg/m2 Jeremy Ball Other [facility] Other 01-29-2023 13:30-0400 Body weight 74.66 kg Jeremy Ball Other [facility] Other 01-29-2023 13:30-0400 Diastolic blood pressure 66 mm[Hg] Jeremy Ball Other [facility] Other 01-29-2023 13:30-0400 Respiratory rate 12 /min Jeremy Ball Other [facility] Other 01-29-2023 13:30-0400 Systolic blood pressure 119 mm[Hg] Jeremy Lam Other [facility] Other 01-07-2023 11:20-0400 Body height 182.88 cm Young Yash Other [facility] Other 01-07-2023 11:20-0400 Body mass index (BMI) [Ratio] 22.62 kg/m2 Young Yash Other [facility] Other 01-07-2023 11:20-0400 Body temperature 97.7 [degF] Young Yash Other [facility] Other 01-07-2023 11:20-0400 Body weight 75.66 kg Young Yash Other [facility] Other 01-07-2023 11:20-0400 Diastolic blood pressure 64 mm[Hg] Young Yash Other [facility] Other 01-07-2023 11:20-0400 Respiratory rate 18 /min Young Yash Other [facility] Other 01-07-2023 11:20-0400 SaO2% (BldA) [Mass fraction] 99 % Young Yash Other [facility] Other 01-07-2023 11:20-0400 Systolic blood pressure 127 mm[Hg] Young Yash Other [facility] Other 02-21-2022 11:20-0400 Body height 182.88 cm Young Yash Other [facility] Other 02-21-2022 11:20-0400 Body mass index (BMI) [Ratio] 23.95 kg/m2 Young Yash Other [facility] Other 02-21-2022 11:20-0400 Body temperature 96.8 [degF] Young Yash Other [facility] Other 02-21-2022 11:20-0400 Body weight 80.11 kg Young Yash Other [facility] Other 02-21-2022 11:20-0400 Diastolic blood pressure 62 mm[Hg] Young Yash Other [facility] Other 02-21-2022 11:20-0400 Respiratory rate 18 /min Young Yash Other [facility] Other 02-21-2022 11:20-0400 SaO2% (BldA) [Mass fraction] 98 % Young Yash Other [facility] Other 02-21-2022 11:20-0400 Systolic blood pressure 119 mm[Hg] Young Yash Other [facility] Other 11-08-2021 11:00-0400 Body height 182.88 cm Young Yash Other [facility] Other 11-08-2021 11:00-0400 Body mass index (BMI) [Ratio] 24.79 kg/m2 Young Yash Other [facility] Other 11-08-2021 11:00-0400 Body temperature 97.6 [degF] Young Yash Other [facility] Other 11-08-2021 11:00-0400 Body weight 82.92 kg Young Yash Other [facility] Other 11-08-2021 11:00-0400 Diastolic blood pressure 74 mm[Hg] Young Yash Other [facility] Other 11-08-2021 11:00-0400 Respiratory rate 18 /min Young Yash Other [facility] Other 11-08-2021 11:00-0400 SaO2% (BldA) [Mass fraction] 98 % Young Yash Other [facility] Other 11-08-2021 11:00-0400 Systolic blood pressure 139 mm[Hg] Young Yash Other [facility] Other Encounters Encounter Date Encounter Type Care Provider Facility Start: 10-13-2024 End: 10-13-2024 ambulatory Jeremy Ball DO Work Phone: [facility] Work Phone: Start: 10-13-2024 End: 10-13-2024 Patient encounter procedure Jeremy Ball DO Work Phone: [facility] Work Phone: Start: 09-23-2024 End: 09-23-2024 ambulatory Jeremy Ball DO Work Phone: [facility] Work Phone: Start: 09-23-2024 End: 09-23-2024 Patient encounter procedure Jeremy Ball DO Work Phone: [facility] Work Phone: Start: 09-21-2024 End: 09-21-2024 ambulatory Jeremy Ball DO Work Phone: [facility] Work Phone: Start: 09-21-2024 End: 09-21-2024 Patient encounter procedure Jeremy Ball DO Work Phone: [facility] Work Phone: Start: 09-17-2024 Non-patient / Non-visit Benjam in Ball DO Work Phone: [facility] Work Phone: Start: 09-16-2024 Non-patient / Non-visit Benjam in Ball DO Work Phone: [facility] Work Phone: Start: 09-14-2024 Non-patient / Non-visit Benjam in Ball DO Work Phone: [facility] Work Phone: Start: 09-14-2024 End: 09-15-2024 Evaluation and management of inpatient Jeremy Ball DO Work Phone: [facility] [place] [facility] Work Phone: Start: 09-13-2024 Non-patient / Non-visit Benjam in Ball DO Work Phone: [facility] Work Phone: Start: 09-03-2024 Non-patient / Non-visit Benjam in Ball DO Work Phone: [facility] Work Phone: Start: 09-03-2024 End: 09-03-2024 Patient encounter procedure Jeremy Ball DO Work Phone: [facility] [place] Work Phone: Start: 09-03-2024 End: 09-03-2024 ambulatory Jeremy Ball DO Work Phone: [facility] Work Phone: Start: 09-02-2024 End: 09-02-2024 Patient encounter procedure Jeremy Ball DO Work Phone: [facility] Work Phone: Start: 09-02-2024 End: 09-02-2024 ambulatory Jeremy Ball DO Work Phone: [facility] Work Phone: Start: 09-02-2024 Encounter for preprocedural laboratory examination Onofre Francis [facility] Start: 09-01-2024 End: 09-01-2024 ambulatory Jeremy Ball DO Work Phone: [facility] Work Phone: Start: 09-01-2024 End: 09-01-2024 Patient encounter procedure Jeremy Ball DO Work Phone: [facility] Work Phone: Start: 08-30-2024 Non-patient / Non-visit Benjam in Ball DO Work Phone: [facility] Work Phone: Start: 08-30-2024 End: 08-30-2024 Admission to same day surgery center Jeremy Ball DO Work Phone: [facility] Work Phone: Start: 08-30-2024 End: 08-30-2024 ambulatory Jeremy Ball DO Work Phone: [facility] Work Phone: Start: 08-26-2024 End: 08-26-2024 ambulatory [facility] Work Phone: Start: 08-26-2024 End: 08-26-2024 Patient encounter procedure [facility] Work Phone: Start: 07-12-2024 End: 07-12-2024 Patient encounter procedure [facility] Work Phone: Start: 07-09-2024 Non-patient / Non-visit [facility] Work Phone: Start: 07-07-2024 Non-patient / Non-visit [facility] Work Phone: Start: 05-20-2024 End: 05-20-2024 ambulatory [facility] Work Phone: Start: 05-20-2024 End: 05-20-2024 Patient encounter procedure [facility] Work Phone: Start: 05-17-2024 Non-patient / Non-visit [facility] Work Phone: Start: 03-19-2024 End: 03-19-2024 ambulatory Ada Soares Facility:[facility] Start: 03-19-2024 End: 03-19-2024 Patient encounter procedure Ada Soares [facility] Start: 01-15-2024 End: 01-15-2024 ambulatory [facility] Work Phone: Start: 01-15-2024 End: 01-15-2024 Patient encounter procedure [facility] Work Phone: Start: 01-08-2024 End: 01-08-2024 ambulatory [facility] Work Phone: Start: 01-08-2024 End: 01-08-2024 Patient encounter procedure [facility] Work Phone: Start: 01-05-2024 Non-patient / Non-visit [facility] Work Phone: Start: 10-13-2023 Non-patient / Non-visit [facility] Work Phone: Start: 09-12-2023 End: 09-12-2023 ambulatory Ada Soares Facility:[facility] Start: 09-12-2023 End: 09-12-2023 Patient encounter procedure Ada Soares [facility] Start: 08-27-2023 End: 08-27-2023 ambulatory Ada Soares Facility:[facility] Start: 08-18-2023 End: 08-18-2023 ambulatory Young Yash Other [facility] Other Start: 08-18-2023 Telephone encounter Young Yash [facility] Start: 08-14-2023 ambulatory Ada Lue Facility:[facility] Start: 08-11-2023 ambulatory Ada Lue Facility:[facility] Start: 08-05-2023 Telephone encounter Jeremy Lam FP [facility] Start: 08-05-2023 End: 08-05-2023 Admission to same day surgery center DO Jeremy Lam Work Phone: [facility] Work Phone: Start: 08-05-2023 End: 08-05-2023 ambulatory DO Jeremy Lam Work Phone: [facility] Work Phone: Start: 08-04-2023 End: 08-04-2023 ambulatory Young Yash Other [facility] Other Start: 08-04-2023 Telephone encounter Young Yash [facility] Start: 07-24-2023 End: 07-24-2023 ambulatory Young Yash Other [facility] Other Start: 07-24-2023 Office outpatient vi sit 25 minutes [facility] Start: 07-17-2023 End: 07-17-2023 ambulatory Sixto Dobson Other [facility] Other Start: 07-17-2023 Telephone encounter Sixto Pascal [facility] Start: 07-09-2023 End: 07-09-2023 ambulatory Jeremy Lam Other [facility] Other Start: 07-09-2023 Patient encounter procedure Jeremy Lam [facility] Start: 07-07-2023 End: 07-07-2023 ambulatory Jeremy Lam Other [facility] Other Start: 07-07-2023 Telephone encounter Jeremy Lam FP [facility] Start: 04-08-2023 End: 04-08-2023 ambulatory Jeremy Lam Other [facility] Other Start: 04-08-2023 Telephone encounter Jeremy Lam FP [facility] Start: 02-06-2023 End: 02-06-2023 ambulatory Jeremy Lam Other [facility] Other Start: 02-06-2023 Telephone encounter Jeremy Lam FP [facility] Start: 01-29-2023 End: 01-29-2023 ambulatory Jeremy Lam Other [facility] Other Start: 01-29-2023 Office outpatient vi sit 15 minutes Jeremy Lam [facility] Start: 01-29-2023 Telephone encounter Jeremy Lam FP [facility] Start: 01-14-2023 End: 01-14-2023 ambulatory Jeremy Lam Other [facility] Other Start: 01-14-2023 Telephone encounter Jeremy Lam FP [facility] Start: 01-08-2023 End: 01-08-2023 ambulatory Young Yash Other [facility] Other Start: 01-08-2023 Telephone encounter Young Yash [facility] Start: 01-07-2023 End: 01-07-2023 ambulatory Young Yash Other [facility] Other Start: 01-07-2023 Office outpatient vi sit 25 minutes Young Yash [facility] Start: 01-07-2023 Telephone encounter Young Yash [facility] Start: 02-21-2022 End: 02-21-2022 ambulatory Young Yash Other [facility] Other Start: 02-21-2022 Office outpatient vi sit 25 minutes Young Yash [facility] Start: 02-21-2022 Telephone encounter Young Yash [facility] Start: 12-08-2021 End: 12-09-[address] JEREMY LAM Facility: Start: 11-29-2021 Adult health examination Brad min Maddison Other [facility] Other Start: 11-08-2021 End: 11-08-2021 ambulatory Young Yash Other [facility] Other Start: 11-08-2021 Office outpatient vi sit 25 minutes Young Yash [facility] Procedures Date Procedure Procedure Detail Performing Clinician Start: 09-14-2024 Insertion of carotid artery stent Geronimo in Ball DO Work Phone: Start: 09-03-2024 Computed tomography [...] Date Care Activity Detail Author Start: 09-15-2024 [facility] Start: 09-14-2024 Cerebral Embolic Filtration, Extracorporeal Flow Reversal Circuit from Right Common Carotid Artery, Percutaneous Approach, [employer] Cerebral Embolic Filtration, Extracorporeal Flow Reversal Circuit from Right Common Carotid Artery, Percutaneous Approach, [employer] 6 [facility] Start: 09-14-2024 Dilation of Right Internal Carotid Artery with Intraluminal Device, Percutaneous Approach Dilation of Right Internal Carotid Artery with Intraluminal Device, Percutaneous Approach [facility] Start: 09-14-2024 Hospital admission [facility] Start: 08-30-2024 [facility] Start: 08-05-[address] [facility] [address] Neck WO contrast [facility] CT Unspecified body region WO contrast [facility] Patient Education [facility] Work Phone: Patient referral [facility] Work Phone: Renal function 1999 panel - Serum or Plasma [facility] Renal function 1999 panel - Serum or Plasma [facility] Renal function 1999 panel - Serum or Plasma [facility] US.doppler Carotid arteries - bilateral [facility] Immunizations Immunization Date Immunization Notes Care Provider Shnaiqua blackman 12-04-2020 COVID-19 Vaccine Mod poly - Documentation Purposes Only Jeremy Lam Other [facility] Comment on above: Result Comment: 2023: [id number] 11-06-2020 COVID-19 Vaccine Mod poly - Documentation Purposes Only Jeremy Lam Other [facility] Comment on above: Result Comment: 2023: [id number] 06-15-2020 zoster vaccine recombinant Jeremy Lam Other [facility] 04-12-2020 zoster vaccine recombinant Jeremy Lam Other [facility] Payers Date Payer Category Payer Self-pay [id number] 2024 Unknown [id number] 2023 Medicare [id number] 2.1 [id number] 2023 Private Health Insurance [id number] 1959 Private Health Insurance [id number] 1957 Unknown [id number] 2.16.84 [id number] 1957 Unknown [id number] 2.16.8 [id number] 1957 Unknown [id number] 2.16.8 [id number] 1957 Unknown [id number] 2.16.8 [id number] 1957 Unknown [id number] 2.16.8 [id number] 1957 Unknown [id number] 2.16.8 [id number] Private Health Insurance [id number] Unknown [id number] 2.16.8 [id number] Unknown [id number] 2.16.8 [id number] Unknown [id number] 2.16.8 [id number] Unknown [id number] 2.16.8 [id number] Social History Date Type Detail Facility Unknown if ever smoked [facility] Other Start: 07-28-2067 Sex Assigned At F [facility] Start: 08-05-2023 End: 09-23-2024 Tobacco smoking status NHIS Smoker (finding) [facility] Start: 1955 Sex Assigned At Male F [facility] Start: 08-27-2023 Tobacco smoking status Heavy t obacco smoker (finding) [facility] Tobacco smoking status Never [facility] Start: 08-26-2024 End: 10-13-2024 Sex Male (finding) [facility] Medical Equipment Procedure Code Equipment Code Equipment Original Text Equipment Identifier Dates Transcarotid artery revascularization (TCAR) Bare-metal carotid artery stent ()[id number] [facility] Start: 09-14-2024 Goals Date Patient Goal Desired Activity /State Functional Status Date Assessment Result Facility 09-15-2024 Functional status Patient at Baseline [facility] Work Phone: 09-12-2023 Functional Status N/A [facility] Mental Status Date Assessment Result Facility 09-15-2024 Cognitive function Cognitive Sta tus Patient at Baseline [facility] Work Phone: Clinical Notes 11-08-2021 to 09-14-2024 Note Date & Type Note Facility 09-14-[address] [facility] enter 09-03-2024 Radiology Diagnostic study note [facility] [place] [address] CT Scan Report Signed Patient: Kingston Guevara MR#: [id number] : 1955 Acct:[id number] Age/Sex: 69 / M ADM Date: 5 Loc: CT Room: Type: [facility] Attending Dr: Shirley Collins HYDROGEN OPERATOR-C Copies to: Shirley Collins APRN~ Ordering Provider: Shirley Collins APRN Date of Service: 09/03/24 CT/CT head/brain wo con: I65.21 - Occlusion and stenosis of right carotid artery ([id number]) CT/CT soft tissue neck wo con: I65.21 [...] on noncontrast studies. Impression dictated by: Dwaine Mroeno M.D.09/03/2024 1:35 PM Dictation Location: RADIO-PC-23 Transcribed By: ARPIT 09/03/24 1335 Dictated By: Dwaine Moreno II, MD 09/03/24 1325 Signed By: 09/03/24 1335 [facility] Work Phone: 08-30-[address] [facility] enter 08-26-2024 Evaluation note Diagnosis Onset Date Resolution CKD (chronic kidney disease) stage 4, GFR 15-29 ml/min acute August 26, 2024 10:43am Occlusion and stenosis of bilateral carotid arteries inactive 2024 10:43am Carotid bruit deleted July 10:43am Occlusion and stenosis of bilateral carotid arteries inactive 2024 9:52am Occlusion and stenosis of bilateral carotid arteries inactive 2024 11:34am Carotid stenosis, right acute F eb2024 10:25am Chronic bronchitis acute 2024 10:25am Chronic kidney disease acute Fe bru2024 10:25am Hypercholesterolemia acute uary 2024 10:25am Hypertension acute August 10:25am Hyponatremia acute August 10:25am Hypothyroid acute August 10:25am Nicotine addiction acute 2024 10:25am Anemia of renal disease acute F ebruary 2024 10:36am Atrophic kidney acute September 23, 2024 10:36am CKD (chronic kidney disease) stage 4, GFR 15-29 ml/min acute September 23, 2024 10:36am Hypertensive chronic kidney disease with stage 1 through stage 4 chronic ki acute Febru carley2024 10:36am Hyponatremia acute August 10:36am Secondary hyperparathyroidism acute August 10:36am Hyperlipidemia deleted August 292024 10:36am [facility] Work Phone: 1(385) 676-327312-16-2024 Evaluation note* Diagnosis Onset Date Resolution Status Admit Date Anemia acute July 12, 2024 9:56am Carotid stenosis, right acute D ecember 2023 9:56am Chronic bronchitis acute Decemb er 2023 9:56am Chronic kidney disease acute De cem2023 9:56am Hypercholesterolemia acute Dece mber 2023 9:56am Hypertension acute June 9:56am Hyponatremia acute June 9:56am Nicotine addiction acute [facility] er 2023 9:56am Screening PSA (prostate spec ific antigen) acute July 12 9:56am Medicare annual wellness vis it, initial noneactive July 12 9:56am [facility] Work Phone: 1(411) 712-714412-16-2024 Evaluation note* Diagnosis Onset Date Resolution Status Admit Date Anemia acute July 12, 2024 9:56am Carotid stenosis, right acute D ecember 2023 9:56am Chronic bronchitis acute Decemb er 2023 9:56am Chronic kidney disease acute De 2023 9:56am Hypercholesterolemia acute Dece mber 2023 [...] and stenosis of bilateral carotid arteries acute Janua ry 2024 10:43am [facility] Work Phone: 1(933) 214-134512-16-2024 Evaluation note* Diagnosis Onset Date Resolution Status [...] bilateral carotid arteries acute Febru 2024 9:52am [facility] Work Phone: 1(425) 256-170012-16-2024 Evaluation note* Diagnosis Onset Date Resolution Status [...] and stenosis of bilateral carotid arteries acute Janua ry 2024 10:43am Occlusion and stenosis of bilateral carotid arteries acute Febru carley 2024 9:52am Occlusion and stenosis of bilateral carotid arteries acute Febru carley2024 11:34am [facility] Work Phone: 1(370) 673-325412-16-2024 Evaluation note* Diagnosis Onset Date Resolution Status Admit Date Carotid stenosis, right acute D ecember 2023 9:56am Chronic bronchitis acute Decemb er 2023 9:56am Chronic kidney disease acute De cember 2023 9:56am Hypercholesterolemia acute Dece mber 2023 9:56am Hypertension acute June 9:56am Hyponatremia acute June 9:56am Nicotine addiction acute Decemb er 2023 9:56am Screening PSA (prostate spec ific antigen) acute July 12, 9:56am Anemia deleted July 12, 2024 9:56am Medicare annual wellness vis it, initial noneactive July 12, 9:56am CKD (chronic kidney disease) stage 4, GFR 15-29 ml/min acute r y 2024 10:43am Occlusion and stenosis of bilateral carotid arteries acute ry 2024 10:43am Carotid bruit deleted July 10:43am Occlusion and stenosis of bilateral carotid arteries acute Febru carley2024 9:52am Occlusion and stenosis of bilateral carotid arteries acute Febru carley 2024 11:34am Carotid stenosis, right acute F ebruary 2024 10:25am Chronic bronchitis acute Februa ry 2024 10:25am Chronic kidney disease acute Fe bruary 2024 10:25am Hypercholesterolemia acute Febr uary 2024 10:25am Hypertension acute August 10:25am Hyponatremia acute August 10:25am Hypothyroid acute August 10:25am Nicotine addiction acute ua ry 2024 10:25am [facility] Work Phone: 1(725) 824-563612-16-2024 Evaluation note* Diagnosis Onset Date Resolution Status Admit Date Carotid stenosis, right acute D ecember 2023 9:56am Chronic bronchitis acute Decemb er 2023 9:56am Chronic kidney disease acute De cember 2023 9:56am Hypercholesterolemia acute Dece mber 2023 9:56am Hypertension acute June 9:56am Hyponatremia acute June 9:56am Nicotine addiction acute Decemb er 2023 9:56am Screening PSA (prostate spec ific antigen) acute July 12, 9:56am Anemia deleted July 12, 2024 9:56am Medicare annual wellness vis it, initial noneactive July 12, 2 024 9:56am CKD (chronic kidney disease) stage 4, GFR 15-29 ml/min acute 2024 10:43am Occlusion and stenosis of bilateral carotid arteries inactive 2024 10:43am Carotid bruit deleted July 10:43am Occlusion and stenosis of bilateral carotid arteries inactive 2024 9:52am Occlusion and stenosis of bilateral carotid arteries inactive u carley2024 11:34am Carotid stenosis, right acute F ebruary 2024 10:25am Chronic bronchitis acute 2024 10:25am Chronic kidney disease acute bru2024 10:25am Hypercholesterolemia acute uary 2024 10:25am Hypertension acute August 10:25am Hyponatremia acute August 10:25am Hypothyroid acute August 10:25am Nicotine addiction acute 2024 10:25am Anemia of renal disease acute F ebruary 2024 10:36am Atrophic kidney acute September 23, 2024 10:36am CKD (chronic kidney disease) stage 4, GFR 15-29 ml/min acute ua ry 2024 10:36am Hypertensive chronic kidney disease with stage 1 through stage 4 chronic ki acute August 10:36am Hyponatremia acute August 10:36am Secondary hyperparathyroidism acute September 23, 2024 10:36am Hyperlipidemia deleted August 292024 10:36am [facility] Work Phone: 1(542) 965-850602-16-2024 Hospital Discharge instructions Patient Education 09/12/2023 08:06:25 [...] including vitamins, herbs, eye drops, creams, and nnpk-bfd-bszvmvh medicines. Any problems you or family members [...] provider tells you to take them. Taking ezts-qck-bdfwsbv medicines, vitamins, herbs, and supplements. Tests You [...] Follow these instructions at home: Medicines Take hbyz-cev-nulrrkm and prescription medicines only as told by [...] provider. Document Revised: 03/27/2022 Document Reviewed: 02/23/2021 [employer] Patient Education 2022 [employer]. Follow Up Care 08/27/2023 10:15:46 With:Rodger BRIDGES, Ada Morris URL, URO Address: [address] [place] [address]- [phone] When: Unknown Comments:6 mos (new med) [facility] 02-16-2024 NoteUrology Cystoscopy Cystoscopy is a procedure [...] including vitamins, herbs, eye drops, creams, and dyjg-knh-hpvsfei medicines. ? Any problems you or family [...] tells you to take them. ? Taking qyic-yad-lzzfaky medicines, vitamins, herbs, and supplements. Tests You [...] these instructions at home: Medicines ? Take uvjj-gao-jystaxl and prescription medicines only as told by [...] or the department th (more content not included)...[facility] 08-27-2023 NoteChief Complaint Referral *Bladder Wall Thickening [facility] Staff Plater Supervisor referral for bladder wall thickening by Dr [...] of kidney (terminal)) CT AP wo Con @TB 08/04/23 - left atrophic kidney 07/08/23 - Cr 2.35, GFR 34 Unable to receive IV contrast due to CKD -Follows with Dr. Berrios 4. Urinary hesitancy (R39.11: Hesitancy of micturition) Hesitancy with weak stream since before the Holidays. Uncomfortable at times, but not concerned. Denies frequency & nocturia. Denies leakin (more content not included)...[facility]:Result Comment: Electronically Signed By: Ada Soares MD\.br\Date and Time Signed: 08/27/23 09:44EST\.br\Electronically Co-Signed By: Dalia Campos\.br\Date and Time Co-Signed: 08/27/23 09:16 [id number] [facility]* Encounter Date Diagnosis Assessment Notes Treatment Notes Treatment Clinical Notes Jul, Bladder wall thickening (ICD-10 - N32.89) Denies dysuria, polyuria or hematuria. Due to findings, referral for cystoscopy has been initiated. [facility] Other 01-08-2024 Evaluation note* Encounter Date Diagnosis Assessment Notes Treatment Notes Treatment Clinical Notes Jul, Cigarette nicotine dependence without complication (ICD-10 - F17.210) LDCT: 11/2021, 07/2023 [facility] Other 12-28-2023 Evaluation note* Encounter Date Diagnosis [...] I explained to him potential need of ORDER PACKER in the near future. I discussed with him different option of ORDER PACKER including transplant, PD and HD. He is [...] and folate level. No need for LUPE. [facility] Other 12-13-2023 Evaluation note* Encounter Date Diagnosis [...] (ICD-10 - Z12.5) Yearly GARRISON and PSA [facility] Other [id number] Evaluation note* Encounter Date Diagnosis Assessment Notes [...] adequate fluid balance and to avoid dehydration. [facility] Other 07-13-2023 Evaluation note* Encounter Date Diagnosis Assessment Notes Treatment Notes Treatment Clinical Notes Jan, Elevated cholesterol (ICD-10 - E78.00) [facility] Other 07-05-2023 Evaluation note* Encounter Date Diagnosis [...] to respiratory infections, vascular disease and cancers. 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 I discussed with him different option of ORDER PACKER including transplant, PD and HD. He is [...] potassium diet and provide information about it [facility] Other 06-13-2023 Evaluation note* Encounter Date Diagnosis [...] I explained to him potential need of ORDER PACKER in the near future. I discussed with him different option of ORDER PACKER including transplant, PD and HD. He is [...] potassium diet and provide information about it [facility] Other 07-28-2022 Evaluation note* Encounter Date Diagnosis [...] I explained to him potential need of ORDER PACKER in the near future. I discussed with him different option of ORDER PACKER including transplant, PD and HD. He is [...] potassium diet and provide information about it [facility] Other 04-14-2022 Evaluation note* Encounter Date Diagnosis [...] I explained to him potential need of ORDER PACKER in the near future. I discussed with him different option of ORDER PACKER including transplant, PD and HD. He is [...] potassium diet and provide information about it [facility] Other Evaluation + Plan note Future Appointments Appointment Date:03/19/2024 10:00:00 AM Scheduled Provider:Ada Soares MD Location:[facility] Appointment Type:URO Office Visit [facility] Evaluqdmlm noteNo InformationNort [employer] Other evaluuwinb noteNo assessment information available [facility] Work Phone: Evaluacddh note* Diagnosis Onset Date Resolution Status Anemia acute Carotid stenosis, right acut e Chronic bronchitis acute Chronic kidney disease acute GERD (gastroesophageal reflux disease) acute H/O: gout acute Hypercholesterolemia acute Hypertension acute Hyponatremia acute Nicotine addiction acute [facility] Work Phone: Evaluation note* Diagnosis Onset Date Resolution Status Anemia acute Carotid stenosis, right acut e Chronic bronchitis acute Chronic kidney disease acute GERD (gastroesophageal reflux disease) acute Hypercholesterolemia acute Hypertension acute Hyponatremia acute Nicotine addiction acute Anemia of renal disease acut e Atrophic kidney acute CKD (chronic kidney disease) stage 4, GFR 15-29 ml/min acute Hyperlipidemia acute [id number] acute Hyponatremia acute Secondary hyperparathyroidism acute [facility] Work Phone: Evaluation note* Diagnosis Onset Date Resolution Status Anemia of renal disease acut e Atrophic kidney acute CKD (chronic kidney disease) stage 4, GFR 15-29 ml/min acute Hyperlipidemia acute [id number] acute Hyponatremia acute Secondary hyperparathyroidism acute [facility] Work Phone: History and physical note Author Sixto Dobson [facility] August 05, 2023 3:00pm Note Date/Time August 05, 2023 3: 00pm [facility] [address] [place] [address] Gastroenterology H&P Signed Patient: Kingston Guevara MR#: [id number] : 1955 Acct:[id number] Age/Sex: 68 / M Adm Date: 4 Loc: Room: Type: [facility] Attending Dr: Sixto Dobson MD Copies to: [...] signed by Sixto Dobson MD> 08/05/23 1500 [facility] Work Phone: Hisbbad general Narrative - Reported* Type Description Date [...] Surgical History COLONOSCOPY Hospitalization History SEE ABOVE [facility] Other [facility] general Narrative - Reported* Type Description Date [...] History COLONOSCOPY 2019 Hospitalization History SEE ABOVE [facility] Other [facility] general Narrative - Reported* Type Description Date [...] History COLONOSCOPY 2019 Hospitalization History SEE ABOVE [facility] Other History general Narrative - Reported* Type [...] History EGD 07/2023 Hospitalization History SEE ABOVE [facility] Other Hospital course Narrative No data available for this section [facility] Discharge instructions Additional Instructions DISCHARGE INSTRUCTIONS [...] problems. -Follow up with PCP. -Office number [phone].[facility] Work Phone: Hospital Discharge instructions No data available for this section [facility] Progress note No data available for this section [facility] Reason for referral (narrative)* Reason *Waiting for appt Referral for EGD Diagnosis 1 Weight loss, uninten tional (R63.4) Diagnosis 2 Early satiety (R68.8 1) Diagnosis 3 Anemia, unspecified type (D64.9) Referral Organization [facility] Referring Provider First Name Jeremy Referring Provider Last Name Maddison Referring Provider Specialty Internal Me dicine Referred Organization [facility] Gastroenterolo gy Referred Provider Tanvir Mc Referred Address [address] [facility],[place] [address] ,[place], [place],[address] Referred Provider Specialty Gastroentero logy Referral Priority [...] 07/10/2023 09:14:25 AM >received today, referral faxed [facility] Other Summary Purpose Family History Relationship Condition [...] disease) stage 4, GFR 15-29 ml/min Hyperlipidemia [id number] Hyponatremia Secondary hyperparathyroidism Chief Complaint RENAL 4 MONTH F/U Reason for Visit Anemia of renal dise ase Atrophic kidney CKD (chronic kidney disease) stage 4, GFR 15-29 ml/min Hyperlipidemia [id number] Hyponatremia Secondary hyperparathyroidism Chief Complaint Admit Date [...] Ref from Dr. Lam; Carotid Stenosis Quirino carley2024 10:43am Carotid Stenosis August 30, 2024 8 [...] Ref from Dr. Lam; Carotid Stenosis Quirino carley2024 10:43am Carotid Stenosis August 30, 2024 8 :59am Carotid Stenosis August 30, 2024 1 0:33am To go over angiogram; Carotid Stenosis F [facility] 2024 9:52am Chief Complaint Admit Date CC Adult Risk Stratification July 092023 1:26pm wellness July 12, 2024 9:56am Ref from Dr. Lam; Carotid Stenosis Quirino carley2024 10:43am Carotid Stenosis August 30, 2024 8 :59am Carotid Stenosis August 30, 2024 1 0:33am To go over angiogram; Carotid Stenosis F [facility] 2024 9:52am Carotid Stenosis September [...] Ref from Dr. Lam; Carotid Stenosis Quirino carley2024 10:43am Carotid Stenosis August 30, 2024 8 :59am Carotid Stenosis August 30, 2024 1 0:33am To go over angiogram; Carotid Stenosis F ebruary 2024 9:52am Carotid Stenosis September 02, 2024 3 :21pm I65.21 N18.4 September 03, 2024 9 :57am Chief Complaint Admit Date CC Adult Risk Stratification July 092023 1:26pm wellness July 12, 2024 9:56am Ref from Dr. Lam; Carotid Stenosis Quirino carley2024 10:43am Carotid Stenosis August 30, 2024 8 :59am Carotid Stenosis August 30, 2024 1 0:33am To go over angiogram; Carotid Stenosis F ebruary 2024 9:52am Carotid Stenosis September 02, 2024 [...] delgado tid arteries September 14, 2024 11:34am Chief Complaint Admit Date CC Adult Risk Stratification July 092023 1:26pm wellness July 12, 2024 9:56am Ref from Dr. Lam; Carotid Stenosis Quirino carley 2024 10:43am Carotid Stenosis August 30, 2024 8 :59am Carotid Stenosis August 30, 2024 1 0:33am To go over angiogram; Carotid Stenosis F ebruary 2024 9:52am Carotid Stenosis September 02, 2024 3 :21pm I65.21 N18.4 September 03, 2024 9 :57am Carotid Stenosis September 14, 2024 11:34am Carotid Stenosis September 14, 2024 3:24pm Amb Documentation September 16, 2024 11:20am IP [facility] September 21, 2024 10:25am Reason for Visit Admit Date Carotid stenosis, right July 12, 2 024 9:56am Chronic bronchitis July 12, 2024 9:56am Chronic kidney disease July 12 24 9:56am Hypercholesterolemia July 12, 2024 9:56am Hypertension July 12, 2024 9:56am Hyponatremia July 12, 2024 9:56am Nicotine addiction July 12, 2024 9:56am Screening PSA (prostate specific antigen ) July 12, 2024 9:56am Anemia July 12, 2024 9:56am Medicare annual wellness visit, initial July 12, 2024 9:56am CKD (chronic kidney disease) stage 4, GF R 15-29 ml/min August 26, 2024 10:43am 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 August 26, 2024 10:43am Carotid bruit August 26, 2024 1 0:43am 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 September 01, 2024 9:52am 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 September 14, 2024 11:34am Carotid stenosis, right September 21, 2 025 10:25am Chronic bronchitis September 21, 2024 10:25am Chronic kidney disease September 21 10:25am Hypercholesterolemia September 21, 2024 10:25am Hypertension September 21, 2024 10:25am Hyponatremia September 21, 2024 10:25am Hypothyroid September 21, 2024 10:25am Nicotine addiction September 21, 2024 10:25am Chief Complaint Admit Date CC Adult Risk Stratification July 092023 1:26pm wellness July 12, 2024 9:56am Ref from Dr. Lam; Carotid Stenosis Quirino carley 2024 10:43am Carotid Stenosis August 30, 2024 8 :59am Carotid Stenosis August 30, 2024 1 0:33am To go over angiogram; Carotid Stenosis F ebruary 2024 9:52am Carotid Stenosis September 02, 2024 3 :21pm I65.21 N18.4 September 03, 2024 9 :57am Carotid Stenosis September 14, 2024 11:34am Carotid Stenosis September 14, 2024 3:24pm Amb Documentation September 16, 2024 11:20am IP [facility] September 21, 2024 10:25am RENAL 4 MONTH F/U September 23, 2024 10:36am Reason for Visit Admit Date Carotid stenosis, right July 12, 2 024 9:56am Chronic bronchitis July 12, 2024 9:56am Chronic kidney disease July 12 9:56am Hypercholesterolemia July 12, 2024 9:56am Hypertension July 12, 2024 9:56am Hyponatremia July 12, 2024 9:56am Nicotine addiction July 12, 2024 9:56am Screening PSA (prostate specific antigen ) July 12, 2024 9:56am Anemia July 12, 2024 9:56am Medicare annual wellness visit, initial July 12, 2024 9:56am CKD (chronic kidney disease) stage 4, GF R 15-29 ml/min August 26, 2024 10:43am 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 August 26, 2024 10:43am Carotid bruit August 26, 2024 1 0:43am 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 September 01, 2024 9:52am 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 September 14, 2024 11:34am Carotid stenosis, right September 21, 025 10:25am Chronic bronchitis September 21, 2024 10:25am Chronic kidney disease September 21 10:25am Hypercholesterolemia September 21, 2024 10:25am Hypertension September 21, 2024 10:25am Hyponatremia September 21, 2024 10:25am Hypothyroid September 21, 2024 10:25am Nicotine addiction September 21, 2024 10:25am Anemia of renal disease September 23 025 10:36am Atrophic kidney September 23, 2024 10:36am CKD (chronic kidney disease) stage 4, GF R 15-29 ml/min September 23, 2024 10:36am Hypertensive chronic kidney disease with stage 1 through stage 4 chronic ki September 23, 2024 10:36am Hyponatremia September 23, 2024 10:36am Secondary hyperparathyroidism August 292024 10:36am Hyperlipidemia September 23, 2024 10:36am Chief Complaint Admit Date Ref from Dr. Lam; Carotid Stenosis Quirino carley 2024 10:43am Carotid Stenosis August 30, 2024 8 :59am Carotid Stenosis August 30, 2024 1 0:33am To go over angiogram; Carotid Stenosis F ebruary 2024 9:52am Carotid Stenosis September 02, 2024 3 :21pm I65.21 N18.4 September 03, 2024 9 :57am Carotid Stenosis September 14, 2024 11:34am Carotid Stenosis September 14, 2024 3:24pm Amb Documentation September 16, 2024 11:20am IP [facility] September 21, 2024 10:25am RENAL 4 MONTH F/U September 23, 2024 10:36am f/u TCAR done on 09/24/24 October 13 10:41am Reason for Visit Admit Date CKD (chronic kidney disease) stage 4, GF R 15-29 ml/min August 26, 2024 10:43am 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 August 26, 2024 10:43am Carotid bruit August 26, 2024 1 0:43am 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 September 01, 2024 9:52am 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 September 14, 2024 11:34am Carotid stenosis, right September 21 10:25am Chronic bronchitis September 21, 2024 10:25am Chronic kidney disease September 21 10:25am Hypercholesterolemia September 21, 2024 10:25am Hypertension September 21, 2024 10:25am Hyponatremia September 21, 2024 10:25am Hypothyroid September 21, 2024 10:25am Nicotine addiction September 21, 2024 10:25am Anemia of renal disease September 23 10:36am Atrophic kidney September 23, 2024 10:36am CKD (chronic kidney disease) stage 4, GF R 15-29 ml/min September 23, 2024 10:36am Hypertensive chronic kidney disease with stage 1 through stage 4 chronic ki September 23, 2024 10:36am Hyponatremia September 23, 2024 10:36am Secondary hyperparathyroidism August 292024 10:36am Hyperlipidemia September 23, 2024 10:36am Reason for Referral Reason Mr. Guevara is bein g referred for cystoscopy Diagnosis 1 Bladder wall thicken ing (N32.89) Referral Organization [facility] anita Referring Provider First Name Jeremy Referring Provider Last Name Maddison Referring Provider Specialty Internal Dc dicine Referred Organization [facility] Referred Address [address],[place], [place],[address] Referred Provider Specialty Urology Referral Priority Routine [...] DATE CREATED AUTHOR AUTHOR'S ORGANIZ ATION 03/22/2024 [facility] DATE CREATED AUTHOR AUTHOR'S ORGANIZ ATION 09/28/2024 [facility] REASON FOR VISIT (unrecogniz ed section and content) CKDCKDNo InformationCKD and hyponatremiaCKD and HTNCKD and HTNNo InformationNo InformationREFILLcheckupNo InformationrefillNo InformationLabsWellness/ BP CheckMAIL PPWCKD and HTNCT resultsNo InformationNo Information Care Teams (unrecognized sec tion and content) Team Status: Active Member Role Status Dates Jeremy Lam DO Primary Care Provider Active Team Status: Inactive Member Role [...] Other Provider Active Start: September 14, 2024 Team Status: Active Member Role Status Dates Jeremy Lam DO Primary Care Provider Active Start: September 16, 2024 Brianda Chin CMA Attending Provider Active Start: September 16, 2024 Team Status: Active Member Role Status Dates Jeremy Lam DO Primary Care Provider Active Start: September 17, 2024 Young Berrios MD Attending Provider Active Start : September 17, 2024 Team Status: Inactive Member Role Status Dates Jeremy Lam DO Primary Care Provide r, Attending Provider Active Start: September 21, 2024 End: September 21, 2024 Team Status: Inactive Member Role Status Dates Jeremy Lam DO Primary Care Provider Active Start: September 23, 2024 End: September 23, 2024 Young Berrios MD Attending Provider Active Start : September 23, 2024 End: September 23, 2024 Team Status: Inactive Member Role Status Dates Jeremy Lam DO Primary Care Provider Active Start: October 13, 2024 End: October 13, 2024 Onof[address] Active St art: October 13, 2024 End: October 13, 2024 Shirley Collins NP-C Attending Provider Active Start: October 13, 2024 End: October 13, 2024 Team Status: Active Member Role Status [...] Other Provider Active Start: September 14, 2024 Team Status: Active Member Role Status Minesh Lam DO Primary Care Provider Active Start: September 16, 2024 Brianda Chin CMA Attending Provider Active Start: September 16, 2024 Team Status: Active Member Role Status Minesh Lam DO Primary Care Provider Active Start: September 17, 2024 Young Berrios MD Attending Provider Active Start : September 17, 2024 Team Status: Inactive Member Role Status Minesh Lam DO Primary Care Provide r, Attending Provider Active Start: September 21, 2024 End: September 21, 2024 Team Status: Inactive Member Role Status Minesh Lam DO Primary Care Provider Active Start: September 23, 2024 End: September 23, 2024 Young Berrios MD Attending Provider Active Start : September 23, 2024 End: September 23, 2024 Team Status: Inactive Member Role Status Minesh Lam DO Primary Care Provider Active Start: October 13, 2024 End: October 13, 2024 Onofre Francis MD Active St art: October 13, 2024 End: October 13, 2024 DALTON Lester Attending Provider Active Start: October 13, 2024 End: October 13, 2024 Goals (unrecognized section and content) Goals [...] BE BASED ON THE PRIMARY CLINICAL RECORDS. [facility] [employer] [facility] provides no warranty or guarantee of the accuracy or completeness of information in this document.
[2025-01-03 11:49] LABS: Thyroid Stimulating Hormone 2.077 uIU/mL (0.358-3.740)
[2025-01-03 12:21] LABS: Free T4 0.93 ng/dL (0.76-1.46)
== END 2025-01-03 10:30 | disposition home or self-care (01) ==
LOC: LAB 10:36
PROVIDERS: PCP Internal Medicine; Visit Provider Internal Medicine
DX: E03.9 Hypothyroidism, unspecified (principal)
CPT/HCPCS: 36415; 84439; 84443

== ENCOUNTER 2025-01-14 11:33 | Outpatient (OUT) | payer MEDICARE, SELFPAY ==
--- OUTSIDE RECORDS SUMMARY | 2025-01-04 08:00 | XMS_ITS | Continuity of Care Document ---
Author Organization [facility] Address [address] [place] [address] Phone Support Name Relationship Address Phone Cindy Kendall Emergency Contact Unknown Jeremy Lam DO Personal Relationship [address] [place] [address] Shirley Collins NP-C Personal Relationship [address] [facility] [place] [address] Care Teams Patient Care Team Team Status: Active Member Role Status Minesh Lam DO Primary Care Provider Active Visit Care Team Team Status: Inactive Member Role Status Minesh Lam DO Primary Care Provider Active Start: October 13, 2024 End: October 13, 2024 [address]eroi [address] MD Active St art: October 13, 2024 End: October 13, 2024 Shirley Collins NP-C Attending Provider Active Start: October 13, 2024 End: October 13, 2024 Patient Care Team Team Status: Active Member Role Status Minesh Lam DO Primary Care Provide r, Attending Provider Active Start: January 03, 2025 Patient Care Team Team Status: Inactive Member Role Status Minesh Lam DO Primary Care Provide r, Attending Provider Active Start: January 04, 2025 End: January 04, 2025 Chief Complaint and Reason for Visit Chief Complaint Admit Date f/u TCAR done on 09/24/24 October 13 10:41am 6 month f/u January 04, 2025 11:2 6am Reason for Visit Admit Date Carotid stenosis, bilateral October 13, 2024 10:41am Current every day smoker October 13 10:41am Carotid stenosis, right January 04, 2025 11:26am Chronic bronchitis January 04, 2025 11:2 6am Chronic kidney disease January 04, 2025 1 1:26am Hypercholesterolemia January 04, 2025 11: 26am Hypertension January 04, 2025 11:2 6am Hyponatremia January 04, 2025 11:2 6am Hypothyroid January 04, 2025 11:2 6am Nicotine addiction January 04, 2025 11:2 6am Allergies, Adverse Reactions, Alerts No known allergies Social History Smoking Status Status Start Date End Date Date of Observa tion Smoker (finding) July 28, 2067 Februa ry 2024 10:43am Observation Status Observation Response Date of Response Patient Sex Male January 04, 2025 11:59am Assigned Sex Male 1955 Family History Relationship Condition Age at Onset Recorded Date/T miroslava father Unknown Malignant neoplasm Unknown Transient ischemic attack Unknown mother Unknown Problems Active Problems Medical Problem Onset Date Status Comments Nicotine addiction Active LDCT: no suspicious nodules - 07/2023, 07/2024 Screening PSA (prostate spec ific antigen) Active Current every day smoker Active Secondary hyperparathyroidism Active Gout Active Atrophic kidney Active CKD (chronic kidney disease) stage 4, GFR 15-29 ml/min Active Hypertensive chronic kidney disease with stage 1 through stage 4 chronic kidney disease, or unspecified chronic kidney disease Active Hypercholesterolemia Active Hyponatremia Active Hypothyroid Active Chronic kidney disease Active Benign prostatic hyperplasia with lower urinary tract symptoms Active GERD (gastroesophageal reflux disease) Ac tive Anemia of renal disease Active Carotid stenosis, bilateral Active Carotid stenosis, right Active US: >70% DAMARIS (93% right bulb) w/ <50% LICA - 07/2024,s/p TCAR - 08/2024, Chronic bronchitis Active Hypertension Active Inactive/Resolved Problems Medical Problem Onset Date Status Comments Occlusion and stenosis of bilateral carotid arteries Resolved Occult blood positive stool Resolved Problem List clean-up per request of Phys. EHR Cmte Medications Medication Status Dose Units Route Directions Qty Days St art Date Stop Date End Date Instructions Atorvastatin 20 mg tablet Discont inued 20 MG PO Daily 90 90 March 01, 2024 9:52am Augus t 2023 11:05 am Atorvastatin 20 mg tablet Discont inued 0 .ROUTE .COMPLEX March 01, 2024 11:05a m Julua ry 2024 12:42 pm TAKE 1 TABLET BY MOUTH DAILY Amlodipine 5 mg tablet Discont inued 5 MG PO Daily 90 90 Sept2023 4:44pm Octob er 2023 1:56p m Labetalol 100 mg tablet Discont inued 100 MG PO Twice daily 180 90 2023 4:45pm Febru [email or web address] 12:09 pm Amlodipine 5 mg tablet Discont inued 5 MG PO Daily 90 90 Octobe r 2023 1:56pm Febru [email or web address] 5:09p m Levothyroxin e 25 mcg tablet Discont inued 25 MCG PO Daily 30 2024 1:00am Febru [email or web address] 3:15p m Levothyroxin e 25 mcg tablet Active 25 MCG PO Daily ry 2024 3:15pm Benazepril 40 mg tablet Active 20 MG PO Every morning October 11, 2024 4:44pm Atorvastatin 20 mg Tablet Discont inued 20 MG PO Daily February 02, 2019 12:00a m Augus t 2023 9:52a m Amlodipine 5 mg Tablet Discont inued 5 MG PO Daily February 02, 2019 12:00a [facility] Aspirin 81 mg Tablet,[place] ble Active 81 MG PO Every morning February 02, 2019 12:00a m Benazepril 40 mg Tablet Discont inued 20 MG PO Daily February 02, 2019 12:00a m October 14, 2023 4:02p m Ergocalcifer ol (Vitamin D2) 1,250 mcg (50,000 unit) capsule Discont inued 1250 MCG PO every week 2023 1:00am January 15, 2024 1:06p m Labetalol 100 mg Tablet Discont inued 100 MG PO Twice daily 2023 1:00am [facility] 2023 4:45p m Ergocalcifer ol (Vitamin D2) 1,250 mcg (50,000 unit) capsule Discont inued 1250 MCG PO .every other week January 15, 2024 1:06pm [email or web address] 10:09 am Atorvastatin 40 mg tablet Active 40 MG PO Every morning 2024 1:00am Famotidine (Pepcid) 40 mg tablet Active 40 MG PO Every morning 2024 1:00am Take 1 tablet orally once a day Clopidogrel 75 mg tablet Discont inued 75 MG PO Every morning 2024 1:00am January 04, 2025 11:52 am Amlodipine 5 mg tablet Active 5 MG PO Every morning 2024 1:00am Benazepril 40 mg tablet Discont inued 20 MG PO Every morning 2024 1:00am October 11, 2024 4:45p m Benazepril 40 mg tablet Discont inued 20 MG PO Daily 45 90 October 14, 2023 4:02pm Decem aileen 2023 11:18 am Benazepril 40 mg tablet Discont inued 20 MG PO Daily 45 90 Decemb er 2023 11:18a m Febru carley 2024 5:09p m Ferrous Sulfate 325 mg (65 mg iron) tablet Active 325 MG PO Every 48 hours 45 2024 1:00am Famotidine (Pepcid) 40 mg tablet Discont inued 40 MG PO Daily 30 30 2023 1:00am u [email or web address] 5:09p m Take 1 tablet orally once a day Tamsulosin 0.4 mg capsule Active 0.4 MG PO Every morning January 08, 2024 12:00a m Atorvastatin 40 mg tablet Discont inued 40 MG PO Daily at bedtime 90 2024 12:40p m Febru [email or web address] 5:09p m Clopidogrel 75 mg tablet Discont inued 75 MG PO Daily 90 90 [email or web address] 1:00am Febru 2024 5:09p m Immunizations Immunization Event Date Not Given Reason Dose Number Technical Sales Consultant Lot Number Vaccine Information Statement (VIS) Detail COVID-19 mRNA-1273 (Moderna) November 06, 2020 COVID-19 mRNA-1273 (Moderna) December 04, 2020 Zoster Vaccine Recombinant, Adjuvanted April 12, 2020 Zoster Vaccine Recombinant, Adjuvanted June 15, 2020 Medical Equipment Device Date Implanted Device Details Bare-metal carotid artery stent September 14, 2024 LINDY: [id number] Issuing Agency: [facility] Device Id: [id number] Expiration Date: 2026-11-24 Lot Number: [id number] Relevant Diagnostic Tests and/or Laboratory Data Laboratory Results Test Date/Time Result Interpretation Reference Range Result Comment Performing Site Free Thyroxine January 03, 2025 10:43am 0.93 ng/dL 0.76-1.46 Thyroid Stimulating Hormone 3rd Gen January 03, 2025 10:43am 2.077 u[iU]/mL 0.358-3.740 Vital Signs Vital Reading Result Reference Range Collection Date/Time Body Temperature 97.8 [degF] 97.6-99.0 October 13, 2024 10:56am Heart Rate 73 /min 60-100 October 13 10:56am Oxygen saturation by Pulse oximetry 98 % 95-100 October 13, 2024 10: 56am BP Systolic 104 mm[Hg] 100-140 October 13 10:56am BP Diastolic 50 mm[Hg] 60-100 October 13 10:56am Height 72 [in_i] January 04, 2025 11:40am Weight 71.78 kg January 04, 2025 11:40am Heart Rate 76 /min 60-100 January 04, 2025 11:40am Respiratory rate 12 /min 12-24 January 04, 2025 11:40am BP Systolic 143 mm[Hg] 100-140 January 04, 2025 11:40am BP Diastolic 73 mm[Hg] 60-100 January 04, 2025 11:40am BMI (Body Mass Index) 21.4 kg/m2 December 262024 11:40am Advance Directives Advance Directive Response Recorded Date/ Time Advance Directives No January 22 12:30pm Insurance Providers Guarantor Kingston Guevara Address [address] [facility] [address] Contact Info. Home Phone: Payer Policy Id Coverage Id Subscriber's Name Subscriber Id Effective Date Expiration Date Medicare [id number] [place] Guevara [id number] Insurance Co [id number] [place] Guevara [id number] Encounters Encounter Location(s) Arrival/Admit Date Discharge/Depart Date Provider(s) Departed Physician/Prov ider Office Visit [facility] Physician [facility] S[facility] October 13, 2024 10:41am October 13, 2024 11:19am Shirley Collins APRN Non-patient / Non-visit [facility] January 03, 2025 10:43am Jeremy Lam DO Departed Physician/Prov ider Office Visit [facility] January 04, 2025 11:26am January 04, 2025 11:59am Jeremy Lam DO Recent Diagnosis Onset Date Admit Date Carotid stenosis, bilateral Jamin h 2024 10:41am Current every day smoker September 252024 10:41am Carotid stenosis, right December 11:26am Chronic bronchitis January 04 11:26am Chronic kidney disease December 11:26am Hypercholesterolemia January 04, 2025 11:26am Hypertension January 04, 2025 11:26am Hyponatremia January 04, 2025 11:26am Hypothyroid January 04, 2025 11:26am Nicotine addiction January 04 11:26am Assessments Diagnosis Onset Date Resolution Status Admit Date Carotid stenosis, bilateral acute October 13, 2024 10:41am Current every day smoker acute October 13, 2024 10:41am Carotid stenosis, right acute J 2024 11:26am Chronic bronchitis acute December 262024 11:26am Chronic kidney disease acute Ju 2024 11:26am Hypercholesterolemia acute January 04, 2025 11:26am Hypertension acute January 04 11:26am Hyponatremia acute January 04 11:26am Hypothyroid acute January 04 11:26am Nicotine addiction acute December 262024 11:26am Plan of Treatment Author Jeremy Lam [facility] Authored January 02, 2025 8:55a m I have instructed this patie nt to consume a healthy, low-fat, low-salt diet. I have also encouraged them to continue exercise with weight loss to achieve/maintain a BMI < 30. I have instructed this patient on the correct procedure for obtaining home BP measurements: - rest for 5 minutes w/o talking. - positioned w/ feet on floor and arms supported. - average best 2/3 readings w/ goal < 135/85. - update office w/ home readings in 2 weeks. Continue benazepril and Amlodipine without interruption Stopped Labetalol I instructed this patient on the benefits of adequate control of hypertension and diabetes, if appropriate. I have also instructed them to avoid use of NSAIDs due to the adverse effects on renal function. I instructed them on adequate fluid balance and to consume at least 48 oz of fluids daily. I also instructed them to monitor for an unexplained increase in weight and lower extremity edema. They have been instructed to notify the office for any changes or concerns. f/u Nephrology May have contributed to low sodium Initiated treatment due to urgency to schedule surgery. Monitor TSH and FT4, may be subclinical hypothyroid No s/s of acute, focal neurologic deficits. I have reviewed stroke symptoms and instructed them to go to the ER for any suspicious symptoms. Continue secondary prevention measures Encouraged smoking cessation US: >70% DAMARIS (93% right bulb) w/ <50% LICA - 07/2024, s/p right TCAR - 08/2024, f/u Vascular surgery I have instructed this patient on a low fat, high fiber diet and exercise. I have discussed the primary and secondary prevention benefits attributed to lowering LDL cholesterol. I have also discussed the medical treatment of elevated cholesterol, which is based on the 10 year ASCVD risk. Continue Atorvastatin without interruption This patient has been encouraged to quit tobacco use immediately. They are aware of the hazards associated with tobacco use, including but not limited to respiratory infections, vascular disease and cancers. Scheduled for yearly LDCT chest for lung cancer screening is recommended. LDCT: no suspicious nodules 07/2023, 07/2024 Instructed on smoking cessation. Mucolytics to assist in clearing secretions This patient has been encouraged to quit tobacco use immediately. They are aware of the hazards associated with tobacco use, including but not limited to respiratory infections, vascular disease and cancers. Scheduled for yearly LDCT chest for lung cancer screening is recommended. Likely due to beer consumption. Instructed to reduce beer consumption (2 daily) as well as limiting fluids to 48oz. Checked Serum Osmo, Urine Osmo ad Urine Na - findings consistent w/ SIADH Author Shirley Collins [facility] Authored March 19th, 2025 11: 28am Patient has done well after right TCAR procedure last month. He remains asymptomatic of his carotid disease and on good medical therapy with use of aspirin, Plavix, and statin medications daily. We discussed the ongoing importance of antiplatelet and statin medications for life. Once he is finished with his Plavix prescription, there is no need to continue dual antiplatelet therapy. We will continue to follow him along and see him again in 3 months with routine surveillance postoperative carotid duplex studies. We discussed signs and symptoms of carotid disease and when would be appropriate to return for further evaluation prior to his next scheduled appointment. He verbalizes understanding of our discussion and agrees with this plan. Denies questions. Discussed the health risks associated with tobacco smoking. Patient understands his risks and is unmotivated to quit. Continue to recommend smoking cessation. Examination and assessment of this patient was performed by EARL Frank and patient will continue with the treatment plan per Dr. Francis who initiated this treatment plan. Dr. Francis is present in the office today and providing supervision. Future Tests Future scheduled test information is unavailable Pending Tests Test Name Ordered Date Scheduled Date US carotid doppler October 13, 2024 11:19am 2 Months Future Visits Future appointment information is unavailable Referrals to Other Providers Referral information is unavailable Future Procedures Future procedure information is unavailable Future Medications Future medication information is unavailable Patient Instructions Patient instructions are unavailable
--- OUTSIDE RECORDS SUMMARY | 2025-01-14 11:40 | XMS_ITS | Clinical Summary ---
Author Organization [employer] [facility] tem Address [id number] [address] [place] [address] Care Team Providers Care Heating Equipment Installer Name Role Phone Jeremy Lam DO Primary Care Provider [phone] Social History Tobacco Use Types Packs/Day Years Used Date Smoking Tobacco: Never Assessed Childcare Answer Date Recorded Childcare Unknown 01/07/2019 Employment Answer Date Recorded Employment Unknown 01/07/2019 Purpose - Life Answer Date Recorded Purpose and direction in life Unknown Sex and Gender Information Value Date Recorded Sex Assigned at Not on file Legal Sex Male 11:40 AM EST Gender Identity Not on file Sexual Orientation Not on file Plan of Treatment Not on file Medical Devices Not on file Insurance [employer] Care Teams Heating Equipment Installer Relationship Specialty Start Date End Date Jeremy Lam DO [address] [place] [address] PCP - General Internal Medicine 07/06/18
[2025-01-14 12:07] LABS: Hematocrit 39.2 % (42.0-54.0); Hemoglobin 14.3 g/dL (14.0-18.0); Mean Corpuscular HGB Conc 36.5 g/dL (29.9-35.2); Mean Corpuscular Hemoglobin 33.4 pg (25.9-34.0); Mean Corpuscular Volume 91.6 fL (80.0-94.0); Mean Platelet Volume 8.8 fL (9.5-13.5); Platelet Count 249 10^3/uL (150-450); Red Blood Count 4.28 10^6/uL (4.70-6.10); Red Cell Distribution Width 12.6 % (11.0-15.0); White Blood Count 9.1 10^3/uL (4.0-11.0)
[2025-01-14 12:31] LABS: Bilirubin Urine NEGATIVE (NEGATIVE); Blood Urine NEGATIVE (NEGATIVE); Clarity Urine CLEAR (CLEAR); Color Urine LT. YELLOW (YELLOW); Glucose Urine UA NEGATIVE (NEGATIVE); Ketones Urine NEGATIVE (NEGATIVE); Leukocyte Esterase Urine NEGATIVE (NEGATIVE); Nitrite Urine NEGATIVE (NEGATIVE); Protein Urine NEGATIVE (NEG/TRACE); Specific Gravity Urine <=1.005 (1.005-1.025); Urobilinogen Urine 0.2 EU/dL (0.2-1.0); pH Urine 6.5 (5.0-9.0)
[2025-01-14 13:03] LABS: Bacteria Urine NONE SEEN #/HPF (NONE SEEN); Cast Seen? NONE SEEN #/LPF (NONE SEEN); Crystals Seen? None Seen #/HPF (None Seen); Mucus Urine NONE SEEN (NONE SEEN); RBC Urine NONE SEEN #/HPF (0-2); Squamous Epithelial Cell Urine NONE SEEN #/LPF (NONE/RARE); WBC Urine NONE SEEN #/HPF (NONE SEEN)
[2025-01-14 13:49] LABS: Percent Iron Saturation 21.3 %
[2025-01-14 14:05] LABS: Creatinine Urine Random 42.63 mg/dL (20.00-300.00); Protein Creatinine Ratio Urine 0.41; Total Protein Urine Random 17.3 mg/dL (<=11.9)
[2025-01-14 15:11] LABS: Albumin Level 3.7 g/dL (3.4-5.0); BUN Creatinine Ratio 8.2; Calcium 8.8 mg/dL (8.5-10.1); Chloride 90 mmol/L (98-107); Estimated GFR (African America 37 (>=60 mL/min/1.73m^2); Estimated GFR (Non-African Ame 30 (>=60 mL/min/1.73m^2); Glucose 85 mg/dL (74-106); Magnesium 1.9 mg/dL (1.8-2.4); Phosphorus 3.8 mg/dL (2.6-4.7); Uric Acid 5.8 mg/dL (3.5-7.2)
[2025-01-14 15:24] LABS: Sodium 124 mmol/L (136-145)
[2025-01-16 10:11] LABS: PTH, Intact 51 pg/mL (15-65)
== END 2025-01-14 11:34 | disposition home or self-care (01) ==
PROVIDERS: PCP Internal Medicine; Visit Provider Internal Medicine
DX: I12.9 Hypertensive chronic kidney disease with stage 1 through stage 4 chronic kidney disease, or unspecified chronic kidney disease (principal); N25.81 Secondary hyperparathyroidism of renal origin; N26.1 Atrophy of kidney (terminal); N18.4 Chronic kidney disease, stage 4 (severe); D63.1 Anemia in chronic kidney disease; E87.1 Hypo-osmolality and hyponatremia
CPT/HCPCS: 36415; 80069; 81001; 82306; 82570; 82728; 83540; 83550; 83735; 83970; 84156; 84550; 85027

== ENCOUNTER 2025-01-17 12:32 | Inpatient (IN) | payer MEDICARE, SELFPAY ==
[2025-01-17] VITALS (9 sets, daily range): BP systolic 129–160; BP diastolic 73–83; PULSE 57–90; TEMP 36.6–36.7; O2SAT 94–98; BMI 21.0; BMI 21.9
--- OUTSIDE RECORDS SUMMARY | 2025-01-17 12:39 | XMS_ITS | Clinical Summary ---
Author Organization [facility] tem Address [id number] [place] [address] Care Team Providers Care Pile Trimmer Name Role Phone Jeremy Lam DO Primary Care Provider [phone] Social History Tobacco Use Types Packs/Day Years [...] Not on file Insurance [employer] Care Teams Pile Trimmer Relationship Specialty Start Date End Date Jeremy Lam DO [address] [place] [address] PCP - General Internal Medicine 07/06/18
[2025-01-17 13:59] LABS: Basophils Absolute Auto 0.1 10^3/uL (0.0-0.1); Basophils Percent Auto 1.3 % (0.2-2.0); Eosinophils Absolute Auto 0.4 10^3/uL (0.0-0.7); Eosinophils Percent Auto 5.5 % (0.9-7.0); Hematocrit 41.8 % (42.0-54.0); Hemoglobin 15.1 g/dL (14.0-18.0); Immature Granulocytes Abs Auto 0.03 10^3/uL (0.00-0.03); Immature Granulocytes Pct Auto 0.4 % (0.0-0.5); Lymphocytes Absolute Auto 1.1 10^3/uL (1.2-3.8); Lymphocytes Percent Auto 14.2 % (20.5-60.0); Mean Corpuscular HGB Conc 36.1 g/dL (29.9-35.2); Mean Corpuscular Hemoglobin 32.6 pg (25.9-34.0); Mean Corpuscular Volume 90.3 fL (80.0-94.0); Mean Platelet Volume 8.9 fL (9.5-13.5); Monocytes Absolute Auto 0.6 10^3/uL (0.3-0.8); Monocytes Percent Auto 7.9 % (1.7-12.0); Neutrophils Absolute Auto 5.3 10^3/uL (1.4-6.5); Neutrophils Percent Auto 70.7 % (43.0-75.0); Platelet Count 257 10^3/uL (150-450); Red Blood Count 4.63 10^6/uL (4.70-6.10); Red Cell Distribution Width 12.2 % (11.0-15.0); White Blood Count 7.5 10^3/uL (4.0-11.0)
[2025-01-17 14:19] LABS: Alanine Aminotransferase 22 U/L (16-63); Albumin Level 3.9 g/dL (3.4-5.0); Alkaline Phosphatase 84 U/L (46-116); Anion Gap 12.9; Aspartate Amino Transferase 26 U/L (15-37); BUN Creatinine Ratio 8.5; Bilirubin Total 0.5 mg/dL (0.2-1.0); Calcium 9.2 mg/dL (8.5-10.1); Carbon Dioxide 27.2 mmol/L (21.0-32.0); Chloride 89 mmol/L (98-107); Estimated GFR (African America 36 (>=60 mL/min/1.73m^2); Estimated GFR (Non-African Ame 30 (>=60 mL/min/1.73m^2); Globulin 3.8 g/dL; Glucose 95 mg/dL (74-106); Potassium 5.1 mmol/L (3.5-5.1); Total Protein 7.7 g/dL (6.4-8.2)
[2025-01-17 14:22] LABS: Sodium 124 mmol/L (136-145)
[2025-01-17] MEDS: 0.9 % SODIUM CHLORIDE 1,000 ML 999 ML IV (16:05)
--- NOTE | 2025-01-17 16:46 | ED.GENADUL1 ---
HPI HPI - General Adult General Chief complaint: Recheck/Abnormal Lab/Rx Stated complaint: ABNORMAL LAB VALUES Time Seen by Provider: 01/17/25 16:44 Source: patient Mode of arrival: walk-in Limitations: no limitations History of Present Illness HPI narrative: Patient is a 69-year-old male who is presenting from outpatient abnormal lab testing. Patient had sodium levels checked on January 14. Patient sodium level was 124. Patient has history of stage IV kidney disease. Patient's fire sprinkler installer is Dr. Norris. Patient has no symptoms. Patient was on his way home to go hang out in his pool at home when he received a phone call from his kidney doctor office that he should come to the ER secondary to abnormal labs. Patient has no headache. No neck pain. No chest pain or shortness of breath. Patient is not lightheaded or dizzy. Patient's asymptomatic. Patient smokes 1 pack of cigarettes a day. All systems are negative except as noted/marked. All systems reviewed and otherwise negative. Nurses note and vital signs reviewed and patient is not hypoxic. General: The patient appears well and in no apparent distress. Patient is resting comfortably on cart. Patient is not toxic, lethargic, or listless. Patient smells of cigarette products, asymptomatic. Skin: Warm, dry, no pallor noted. There is no rash noted. No petechiae, purpura. Head: Normocephalic, atraumatic Eye: Normal conjunctiva, no drainage, EOMI. PERRL Ears, Nose, Mouth, and Throat: oral mucosa is moist. Nares patent. Mouth without vesicles. Cardiovascular: Regular Rate and Rhythm, no murmur, gallop, rub Respiratory: Patient is in no distress, no accessory muscle use, lungs are clear to auscultation, no wheezing, rales or rhonchi Back: non-tender, no CVA tenderness bilaterally to percussion. No CT LS midline pain GI: no tenderness to palpation, no masses appreciated. No rebound, guarding, or rigidity noted. No distention Musculoskeletal: Patient has full range of motion of all of the extremities, no motor, sensory, or focal neurological deficits Neurological: A&O x4, normal speech Psychiatric: Cooperative Related Data Home Medications ?Medication ?Instructions ?Recorded ?Confirmed amlodipine 5 mg tablet 5 mg PO DAILY 01/17/25 01/17/25 aspirin 81 mg capsule 81 mg PO DAILY 01/17/25 01/17/25 atorvastatin 20 mg tablet 20 mg PO DAILY 01/17/25 01/17/25 benazepril 40 mg tablet 20 mg PO DAILY 01/17/25 01/17/25 clopidogrel 75 mg tablet 75 mg PO DAILY 01/17/25 01/17/25 levothyroxine 25 mcg tablet 25 mcg PO DAILY 01/17/25 01/17/25 Allergies Allergy/AdvReac Type Severity Reaction Status Date / Time No Known Drug Allergies Allergy Verified 01/17/25 12:42 Opioid HPI Opioid Management Most Recent Opioid Data: Last Pain Assessment Today, 18:24 Last ORT Total Score 7 Today, 18:10 Last ORT Risk Category Moderate Risk Today, 18:10 PFSH PFS Medical History (Updated 01/17/25 @ 20:47 by Kingston Aiken MD) Hypertension ?I10 - Essential (primary) hypertension (ICD-10) Hyperlipidemia ?E78.5 - Hyperlipidemia, unspecified (ICD-10) Hypothyroid ?E03.9 - Hypothyroidism, unspecified (ICD-10) Kidney disease, chronic, stage IV (GFR 15-29 ml/min) ?N18.4 - Chronic kidney disease, stage 4 (severe) (ICD-10) Surgical History (Updated 01/17/25 @ 18:26 by Ciera Alfaro RN) Hx of tonsillectomy ?Z90.89 - Acquired absence of other organs (ICD-10) Hx of appendectomy ?Z90.49 - Acquired absence of other specified parts of digestive tract (ICD-10) History of transcarotid artery revascularization (TCAR) ?Z98.62 - Peripheral vascular angioplasty status (ICD-10) Family History (Updated 01/17/25 @ 18:27 by Ciera Alfaro RN) Father Family history of hypertension Family history of cancer Social History (Updated 01/17/25 @ 18:28 by Ciera Alfaro RN) Within the past year, how often did you have a drink containing alcohol: 4 or more times a week Within the past year, how many standard drinks containing alcohol did you have on a typical day: 5 or 6 Smoking status: Current every day smoker Non-prescribed substance use: cannabis (any form) Highest level of school completed/degree received: some college, no degree Little interest or pleasure in doing things: not at all Feeling down, depressed, or hopeless: not at all Exam Constitutional Vital Signs, click to edit/add: Last Vital Signs Temp 97.9 F 01/17/25 19:52 Pulse 86 01/17/25 20:07 Resp 20 01/17/25 19:52 BP 141/73 01/17/25 19:52 Pulse Ox 98 01/17/25 19:52 O2 Del Method Room Air 01/17/25 19:52 Course Vital Signs Vital signs: Vital Signs Temperature 98 F 01/17/25 12:42 Pulse Rate 90 01/17/25 12:42 Respiratory Rate 16 01/17/25 12:42 Blood Pressure 129/83 01/17/25 12:42 Pulse Oximetry 98 01/17/25 12:42 Oxygen Delivery Method Room Air 01/17/25 12:42 Temperature 97.9 F 01/17/25 19:52 Pulse Rate 86 01/17/25 20:07 Respiratory Rate 20 01/17/25 19:52 Blood Pressure 141/73 01/17/25 19:52 Pulse Oximetry 98 01/17/25 19:52 Oxygen Delivery Method Room Air 01/17/25 19:52 Medical Decision Making MDM Narrative Medical decision making narrative: Patient seen and examined: Patient will have repeat lab test done to verify low sodium. Patient asymptomatic. Differential diagnosis includes but is not limited to: Hyponatremia, chronic renal insufficiency, dehydration, electrolyte abnormality, malnutrition Diagnostics and management: Patient will have laboratory studies Relevant laboratory interpretation: 134, chloride 89, BUN/creatinine 19/2.23 Reevaluation: Patient is asymptomatic. Patient was given 1 L of IV fluids, patient is still asymptomatic. Patient will be given a nicotine patch, patient drinks 1 pack of cigarettes a day. Shared decision making: I discussed with the patient the necessary laboratory findings and radiological findings. Social barriers to healthcare: There are no food insecurities, there is no issue with transportation, there are no insurance barriers. Disposition: I discussed with the patient admission for hyponatremia. Patient states he drinks 6 beers a day, not more than that. Patient does marijuana occasionally. Patient does 1 pack of cigarettes a day. Patient's fire sprinkler installer is Dr. Norris. Patient states he has a history of stage IV renal disease. Patient has had potassium and sodium abnormalities in the past. 170 I have spoken to Dr. Quintero, hospitalist. He is to speak to the fire sprinkler installer, Dr. Norris to see if there is any other recommendations on admission and IV fluids and IV sodium chloride. He stated to only give patient 150 cc/h on the second bag of IV fluids after the first liter has been infused. Patient is placed on potline monitor. EKG has been done. After patient had been admitted, orders have been placed, I spoke to Dr. Quintero again. He stated to stop the IV fluids per Dr. Norris. He told me this at approximately 1750. IV fluids have been stopped. Patient has been on continuous cardiac monitoring while IV fluids have been given to help replace sodium. Patient drinks 6 beers a day, patient states he is never gone through DTs or withdrawal or seizures. Patient states he is gone many days without drinking 6 beers a day and has not had no alcohol withdrawal. Patient states that he has a history of stage IV kidney disease. Patient sees . Lab Data Lab results reviewed: Yes I reviewed the patient's lab results Labs: Lab Results 01/17/25 01/17/25 Range/Units 13:46 17:55 WBC 7.5 (4.0-11.0) 10^3/uL RBC 4.63 L (4.70-6.10) 10^6/uL Hgb 15.1 (14.0-18.0) g/dL Hct 41.8 L (42.0-54.0) % MCV 90.3 (80.0-94.0) fL MCH 32.6 (25.9-34.0) pg MCHC 36.1 H (29.9-35.2) g/dL RDW 12.2 (11.0-15.0) % Plt Count 257 (150-450) 10^3/uL MPV 8.9 L (9.5-13.5) fL Neut % (Auto) 70.7 (43.0-75.0) % Lymph % (Auto) 14.2 L (20.5-60.0) % [place] % (Auto) 7.9 (1.7-12.0) % Eos % (Auto) 5.5 (0.9-7.0) % Baso % (Auto) 1.3 (0.2-2.0) % Neut # (Auto) 5.3 (1.4-6.5) 10^3/uL Lymph # (Auto) 1.1 L (1.2-3.8) 10^3/uL [place] # (Auto) 0.6 (0.3-0.8) 10^3/uL Eos # (Auto) 0.4 (0.0-0.7) 10^3/uL Baso # (Auto) 0.1 (0.0-0.1) 10^3/uL Abs Immat Gran (auto) 0.03 (0.00-0.03) 10^3/uL Imm/Tot Granulo (auto) 0.4 (0.0-0.5) % Sodium 124 L* (136-145) mmol/L Potassium 5.1 (3.5-5.1) mmol/L Chloride 89 L (98-107) mmol/L Carbon Dioxide 27.2 (21.0-32.0) mmol/L Anion Gap 12.9 BUN 19.0 H (7.0-18.0) mg/dL Creatinine 2.23 H (0.70-1.30) mg/dL Est GFR ( Amer) 36 L (>=60 mL/min/1.73m^2) Est GFR (Non-Af Amer) 30 L (>=60 mL/min/1.73m^2) BUN/Creatinine Ratio 8.5 Glucose 95 (74-106) mg/dL Calcium 9.2 (8.5-10.1) mg/dL Total Bilirubin 0.5 (0.2-1.0) mg/dL AST 26 (15-37) U/L ALT 22 (16-63) U/L Alkaline Phosphatase 84 (46-116) U/L Total Protein 7.7 (6.4-8.2) g/dL Albumin 3.9 (3.4-5.0) g/dL Globulin 3.8 g/dL Albumin/Globulin Ratio 1.0 Ur Random Creatinine 15.48 L (20.00-300.00) mg/dL Ur Random Sodium 30 (30-90) mmol/L ECG Data Attestation: I personally reviewed and interpreted this ECG as follows: (EK G answer to some. Normal sinus rhythm at 58 beats a minute. Normal axis deviation. No acute ST elevation, no acute ectopy. QTc of 428. Artifact noted.) Discharge Plan Discharge Chief Complaint: Recheck/Abnormal Lab/Rx Clinical Impression: Acute hyponatremia, Alcohol dependence, Tobacco abuse Patient Disposition: Admitted as Observation Time of Disposition Decision: 17:05 Condition: Good Discharge Date/Time: 01/17/25 18:04
--- NOTE | 2025-01-17 16:47 | ECG_ITS ---
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 Measurements Intervals [place] Rate: 58 P: 75 AL: 190 QRS: 55 QRSD: 80 T: 61 QT: 432 QTc: 428 Interpretive Statements 1100 Sinus rhythm 9110 normal ECG No previous ECG available for comparison Electronically Signed On 01-17-2025 18:27:40 EDT by YESENIA MATA M.D.
[2025-01-17] MEDS: NICOTINE 21 MG PATCH.TD24 TD (17:18)
--- NOTE | 2025-01-17 17:18 | CT_ITS ---
[address] [address] Patient Name: SABRINA MCFARLAND MRN: [id number] date: 1955 Sex: M Assigned Patient Location: ER Current Patient Location: [place] Accession/Order Number: [id number] Exam Date: 01/17/2025 18:04 Report Date: 01/17/2025 18:27 At the request of: RICHARD GARCIA MD Procedure: CT chest wo con CT chest wo con 01/17/2025 5:33 PM SIGN AND SYMPTOMS: ^ruling out lung Ca, hyponatremia TECHNIQUE: Multidetector CT axial slices of the chest were obtained without IV contrast. Multiplanar reformats were performed and viewed on a separate workstation and reviewed to further define anatomy and possible pathology. CT was performed with one or more of the following dose reduction techniques: Automated exposure control, adjustment of the mA and/or kV according to patient size, or use of iterative reconstruction technique. COMPARISON: 08/05/2024.. FINDINGS: Lower neck: Thyroid gland within normal limits, no supraclavicle adenopathy. Vessels: Atherosclerotic changes are noted in the thoracic aorta and coronary arteries. Mediastinum and Ning: Within normal limits. Heart: Normal size. No pericardial effusion. Airways: Within normal limits Lungs: Subtle areas of chronic ground glass attenuation is noted in the anterior right upper lobe. Mild diffuse emphysematous changes are noted. Pleura: Within normal limits. Chest Wall: Within normal limits. Upper Abdomen: Within normal limits. Bones: Degenerative changes are noted in the thoracic spine. CT/CT chest wo con IMPRESSION: No evidence of mass. Subtle areas of chronic ground glass attenuation is noted in the anterior right upper lobe. Mild diffuse emphysematous changes are noted. Impression dictated by: Dwaine Moreno M.D. 01/17/2025 6:27 PM Dictation Location: [place] [address] Electronically authenticated by: [id number] Y Date: 01/17/2025 18:27
--- NOTE | 2025-01-17 17:27 | PM.IMHP1 ---
Internal Medicine - H&P: HPI History of Present Illness Chief complaint: ABNORMAL LAB VALUES Narrative: This is a 69 y.o male with past medical hx of CKD stage 4, hypertension, gout, hyponatremia, hypothyroidism, carotid artery stenosis s/p right TCAR procedure in July 2024, dyslipidemia, alcoholism and active smoker is presented for management of the CKD. Here for abnormal labs, mainly hyponatremia of 123, was sent by in by his automotive fuel injection servicer for further workup and management., He follows up with Dr. Berrios, patient denies any abdominal pain, nausea, vomiting, diarrhea, constipation, fatigue, dizziness, or confusion or passing out or presyncope. He states that he drinks alcohol 3-4 beers every day last drink was yesterday. He also has been drinking a lot of water because of the heat. He also reports weight loss as well as cough. No fever no chills no chest pain. I spoke with Dr. Webber his automotive fuel injection servicer today and the suggested admitting him to our hospital at [place] and that there is no need for him to go to [facility]. He denies to me NSAID intake. I reviewed the medications from his list as well. Labs in the ED included unremarkable CBC, showed BUN of 19 and creatinine of 2.23 which is similar to his baseline values. He did have sodium of 124 but back to his lab review from before he did have values like 124 as well. Patient does have a history of chronic hyponatremia. He will be admitted under hospitalist service for further workup and management. In the ED, patient states 1 L of NS and he was receiving his second liter which we stopped. Review of Systems ROS Status of ROS 10 or more systems reviewed and unremarkable except as noted in history and below [facility] Medical History (Updated 01/17/25 @ 17:32 by Hilary Quintero MD) Hypertension ?I10 - Essential (primary) hypertension (ICD-10) Hyperlipidemia ?E78.5 - Hyperlipidemia, unspecified (ICD-10) Hypothyroid ?E03.9 - Hypothyroidism, unspecified (ICD-10) Kidney disease, chronic, stage IV (GFR 15-29 ml/min) ?N18.4 - Chronic kidney disease, stage 4 (severe) (ICD-10) Social History Little interest or pleasure in doing things: not at all Feeling down, depressed, or hopeless: not at all Meds Home Medications and Allergies Home Medications ?Medication ?Instructions ?Recorded ?Confirmed ?Type amlodipine 5 mg tablet 5 mg PO DAILY 01/17/25 01/17/25 History atorvastatin 20 mg tablet 20 mg PO DAILY 01/17/25 01/17/25 History benazepril 40 mg tablet 20 mg PO DAILY 01/17/25 01/17/25 History clopidogrel 75 mg tablet 75 mg PO DAILY 01/17/25 01/17/25 History levothyroxine 25 mcg tablet 25 mcg PO DAILY 01/17/25 01/17/25 History Allergies Allergy/AdvReac Type Severity Reaction Status Date / Time No Known Drug Allergies Allergy Verified 01/17/25 12:42 Exam Narrative Exam Narrative: General: The patient appears well and in no apparent distress. Patient is resting comfortably on cart. Patient is not toxic, lethargic, or listless. He is pleasant and cooperative. Does have some temporal wasting Skin: Warm, dry, no pallor noted. There is no rash noted. No petechiae, purpura. Head: Normocephalic, atraumatic Eye: Normal conjunctiva, no drainage, EOMI. PERRL Ears, Nose, Mouth, and Throat: oral mucosa is moist. Nares patent. Mouth without vesicles. Cardiovascular: Regular Rate and Rhythm, no murmur, gallop, rub Respiratory: Patient is in no distress, no accessory muscle use, lungs are clear to auscultation, no wheezing, rales or rhonchi Back: non-tender, no CVA tenderness bilaterally to percussion. No CT LS midline pain GI: no tenderness to palpation, no masses appreciated. No rebound, guarding, or rigidity noted. No distention Musculoskeletal: Patient has full range of motion of all of the extremities, no motor, sensory, or focal neurological deficits Neurological: A&O x4, normal speech Constitutional Vital Signs, click to edit/add: Last Vital Signs Temp 98 F 01/17/25 12:42 Pulse 68 01/17/25 17:00 Resp 10 L 01/17/25 17:00 BP 129/83 01/17/25 12:42 Pulse Ox 98 01/17/25 12:42 O2 Del Method Room Air 01/17/25 12:42 Internal Medicine - H&P: Reslt Labs Labs: Short CBC 01/17/25 Range/Units 13:46 WBC 7.5 (4.0-11.0) 10^3/uL Hgb 15.1 (14.0-18.0) g/dL Hct 41.8 L (42.0-54.0) % Plt Count 257 (150-450) 10^3/uL BMP 01/17/25 13:46 Sodium 124 L* Potassium 5.1 Chloride 89 L Carbon Dioxide 27.2 BUN 19.0 H Creatinine 2.23 H Glucose 95 Calcium 9.2 Liver Function 01/17/25 Range/Units 13:46 Total Bilirubin 0.5 (0.2-1.0) mg/dL AST 26 (15-37) U/L ALT 22 (16-63) U/L Alkaline Phosphatase 84 (46-116) U/L Albumin 3.9 (3.4-5.0) g/dL Assessment and Plan Assessment and Plan (1) Acute hyponatremia: (2) Hyperlipidemia: (3) Hypothyroid: (4) Kidney disease, chronic, stage IV (GFR 15-29 ml/min): (5) SIADH (syndrome of inappropriate ADH production): Plan Euvolemic, asymptomatic acute on chronic hyponatremia Multifactorial: SIADH, and likely Polydipsia Ruling out Malignancy -Admit pt to medical floor with telemetry under hospitalist service -Spoke to nephrology, Dr. Berrios who is aware of this pt, and recommends to keep him here at [facility], they will try to get urea from [facility] pharmacy tomorrow, I updated Dr. Berrios, and he recommends sodium chloride tablet 1000 mg tid first dose now, I put that order in -Stop IV fluids, and start pt on fluid restriction 1.2 liters -Start Urea 30 mg PO daily, unfortunately we do not have it in house (confirmed with pharmacy) -Hold ACEI -BMP q4-6 hours with neuro checks q2 hours -Obtain TSH, uric acid,urine Sodium, urine creatinine and UA -Discussed the plan with the pt, he would like to stay here as well -DVT PPx with SCDs -IV pantoprazole 40 mg daily for GI PPx -Also ordered CT chest without contrast as per nephrology recs -Discussed the plan in details with the pt, answered all his questions
[2025-01-17 18:28] LABS: Creatinine Urine Random 15.48 mg/dL (20.00-300.00); Sodium Urine Random 30 mmol/L (30-90)
[2025-01-17] MEDS: MULTIVITAMIN TABLET 1 TAB PO (21:25)
[2025-01-17] MEDS: SODIUM CHLORIDE 1,000 MG TABLET 1000 MG PO (21:25)
[2025-01-17] MEDS: FOLIC ACID 1 MG TABLET PO (21:25)
[2025-01-17 22:40] LABS: Bilirubin Urine NEGATIVE (NEGATIVE); Blood Urine NEGATIVE (NEGATIVE); Clarity Urine CLEAR (CLEAR); Color Urine LT. YELLOW (YELLOW); Glucose Urine UA NEGATIVE (NEGATIVE); Ketones Urine NEGATIVE (NEGATIVE); Leukocyte Esterase Urine NEGATIVE (NEGATIVE); Nitrite Urine NEGATIVE (NEGATIVE); Protein Urine NEGATIVE (NEG/TRACE); Specific Gravity Urine <=1.005 (1.005-1.025); Urobilinogen Urine 0.2 EU/dL (0.2-1.0); pH Urine 6.5 (5.0-9.0)
[2025-01-17 22:52] LABS: Bacteria Urine NONE SEEN #/HPF (NONE SEEN); Cast Seen? NONE SEEN #/LPF (NONE SEEN); Crystals Seen? None Seen #/HPF (None Seen); Mucus Urine NONE SEEN (NONE SEEN); RBC Urine NONE SEEN #/HPF (0-2); Squamous Epithelial Cell Urine NONE SEEN #/LPF (NONE/RARE); Urine Culture Indicated NO; WBC Urine 0-2 #/HPF (NONE SEEN)
[2025-01-18] VITALS (19 sets, daily range): BP systolic 129–149; BP diastolic 67–77; PULSE 61–83; TEMP 36.4–36.7; O2SAT 94–98
[2025-01-18 00:29] LABS: INR 0.98; Prothrombin Time 10.4 sec (9.0-11.6)
[2025-01-18 00:53] LABS: Thyroid Stimulating Hormone 1.921 uIU/mL (0.358-3.740); Uric Acid 6.2 mg/dL (3.5-7.2)
[2025-01-18 00:54] LABS: Magnesium 2.3 mg/dL (1.8-2.4)
[2025-01-18 05:15] LABS: Basophils Absolute Auto 0.1 10^3/uL (0.0-0.1); Basophils Percent Auto 1.1 % (0.2-2.0); Eosinophils Absolute Auto 0.6 10^3/uL (0.0-0.7); Eosinophils Percent Auto 7.8 % (0.9-7.0); Hematocrit 37.7 % (42.0-54.0); Hemoglobin 13.8 g/dL (14.0-18.0); Immature Granulocytes Abs Auto 0.02 10^3/uL (0.00-0.03); Immature Granulocytes Pct Auto 0.2 % (0.0-0.5); Lymphocytes Absolute Auto 1.2 10^3/uL (1.2-3.8); Lymphocytes Percent Auto 14.8 % (20.5-60.0); Mean Corpuscular HGB Conc 36.6 g/dL (29.9-35.2); Mean Corpuscular Hemoglobin 33.2 pg (25.9-34.0); Mean Corpuscular Volume 90.6 fL (80.0-94.0); Mean Platelet Volume 9.1 fL (9.5-13.5); Monocytes Absolute Auto 0.7 10^3/uL (0.3-0.8); Monocytes Percent Auto 8.1 % (1.7-12.0); Neutrophils Absolute Auto 5.5 10^3/uL (1.4-6.5); Platelet Count 238 10^3/uL (150-450); Red Blood Count 4.16 10^6/uL (4.70-6.10); Red Cell Distribution Width 12.4 % (11.0-15.0); White Blood Count 8.1 10^3/uL (4.0-11.0)
[2025-01-18] MEDS: SODIUM CHLORIDE 1,000 MG TABLET 1000 MG PO (05:34)
[2025-01-18] MEDS: LEVOTHYROXINE SODIUM 25 MCG TABLET PO (05:34)
[2025-01-18 05:39] LABS: Alanine Aminotransferase 20 U/L (16-63); Albumin Globulin Ratio 0.9; Albumin Level 3.1 g/dL (3.4-5.0); Alkaline Phosphatase 78 U/L (46-116); Anion Gap 15.7; Aspartate Amino Transferase 20 U/L (15-37); BUN Creatinine Ratio 9.7; Bilirubin Total 0.5 mg/dL (0.2-1.0); Carbon Dioxide 20.7 mmol/L (21.0-32.0); Chloride 96 mmol/L (98-107); Estimated GFR (African America 39 (>=60 mL/min/1.73m^2); Estimated GFR (Non-African Ame 32 (>=60 mL/min/1.73m^2); Globulin 3.5 g/dL; Glucose 80 mg/dL (74-106); Potassium 4.4 mmol/L (3.5-5.1); Sodium 128 mmol/L (136-145); Total Protein 6.6 g/dL (6.4-8.2)
--- OUTSIDE RECORDS SUMMARY | 2025-01-18 07:03 | XMS_ITS | Clinical Summary ---
Author Organization [employer] [facility] tem Address [facility] [id number] [address] [place] [address] Care Team Providers Care Road Marker Name Role Phone Jeremy Lam DO Primary Care Provider [phone] Social History Tobacco Use Types Packs/Day Years [...] Not on file Insurance [employer] Care Teams Road Marker Relationship Specialty Start Date End Date Jeremy Lam DO [address] [place] [address] PCP - General Internal Medicine 07/06/18
--- OUTSIDE RECORDS SUMMARY | 2025-01-18 07:09 | XMS_ITS | CCD ---
Author Organization [facility] Care Team Providers Care Rig Operator Name Role Phone DR JEREMY LAM Consulting Unavailable MADDISON, DR NAGEL Attending Unavailable MADDISON, DR NAGEL Admitting Unavailable BALL, DR NAGEL Primary Care Unavailable DARIO, DR ADELINA Crews Consulting Unavailable Young Berrios Unavailable Jeremy Lam Unavailable Sixto Dobson Unavailable DO Jeremy Lam Primary Care Provider MD Sixto Dobson Attending Provider JEREMY LAM Primary Care Physician [phone] Ada Soares Attending Unavailable Ada Soares Attending Unavailable Ada Soares Attending Unavailable JEREMY LAM Referring Unavailable Jeremy Lam DO Primary Care Provider [phone] Onofre Francis MD Attending Provider Shirley Hoyt [...] Care Provider Onofre Francis MD Attending Provider Dennis DYSONCShirley Attending Provider Tito BRIDGES, Onofre Barnes Admit Provider [phone] Allergies Allergy Classification Reported Allergen(s) Allergy Type Date of Onset Reaction(s) Facility (2 sources) patient allergy list reviewed by nurse or physicia Propensity to adverse reactions Comment:[facility] Other (1 source) No Known Medication Allergies; Translations: [No Known Medication Allergies] Propensity to adverse reactions (disorder) [facility] Repository Medications Current Medications Medication [...] mo uth every week Ergocalciferol 1.25 MG (69483 UT) 1 capsule Orally Q week for [...] source) Long-term current use of aspirin; Translations: [jail (current) use of aspirin] Onset: 4 Episodic [...] distribution width [Ratio] by Automated count 11.0-15.0 [facility] Estimated glomerular filtrat ion rate (GFR) non- Americanon 09-17-2024 GFR/1.73 sq M.predicted among non-blacks MDRD (S/P/Bld) [Vol rate/Area] Estimated glomerular filtration rate (GFR) non- Low >=60 mL/min/1.73 m 2 [facility] Hematocrit Auto (Bld) [Volum e fraction]on 09-17-2024 Hematocrit (Bld) [Volume fraction] Hematocrit [Volume Fraction] of Blood by Automated count Low 42.0-54.0 [facility] Hemoglobin [Mass/volume] in Bloodon 09-17-2024 Hemoglobin (Bld) [Mass/Vol] Hemoglobin [Mass/volume] in Blood Low 14.0-18.0 [facility] Iron binding capacity [Mass/ volume] in Serum or Plasmaon 09-17-2024 Iron binding capacity [Mass/Vol] Iron binding capacity [Mass/volume] in Serum or Plasma Low 250.0-450.0 [facility] Iron saturation [Mass Fracti on] in Serum or Plasmaon 09-17-2024 Iron saturation [Mass fraction] Iron saturation [Mass Fraction] in Serum or Plasma [facility] Laboratory - Chemistry and C hemistry - challengeon 09-17-2024 Albumin [Mass/Vol] 3.4 g/dL 3.4-5.0 [facility] Calcium [Mass/Vol] 9.2 mg/dL 8.5-10.1 [facility] Chloride [Moles/Vol] 100 mmol/L 98-107 [facility] CO2 [Moles/Vol] 24.9 mmol/L 21.0-32.0 [facility] Creatinine [Mass/Vol] 2.88 mg/dL High 0.70-1.30 [facility] Ferritin [Mass/Vol] 324.0 ng/mL 26.0-388.0 [facility] GFR/1.73 sq M.predicted MDRD (S/P/Bld) [Vol rate/Area] 27 mL/min/{1.73_m2} Low >=60 mL/min/1.73 m 2 [facility] Glucose [Mass/Vol] 75 mg/dL 74-106 [facility] Iron [Mass/Vol] 34.0 ug/dL Low 65.0-175.0 [facility] Magnesium [Mass/Vol] 2.0 mg/dL 1.8-2.4 [facility] Potassium [Moles/Vol] 4.6 mmol/L 3.5-5.1 [facility] Sodium [Moles/Vol] 133 mmol/L Low 136-145 [facility] Urate [Mass/Vol] 6.6 mg/dL 3.5-7.2 [facility] Urea nitrogen [Mass/Vol] 21.0 mg/dL High 7.0-18.0 [facility] Urea nitrogen/Creatinine [Mass ratio] 7.3 mg/mg [facility] Laboratory - Urinalysison Protein (U) [Mass/Vol] 20.1 mg/dL High <=11.9 [facility] Leukocytes [#/volume] correc mitchell for nucleated erythrocytes in Blood by Automated counon 09-17-2024 WBC corrected for nucl RBC Auto (Bld) [#/Vol] Leukocytes [#/volume] corrected for nucleated erythrocytes in Blood by Automated coun 4.0-11.0 [facility] MCH Auto (RBC) [Entitic mass ]on 09-17-2024 MCH (RBC) [Entitic mass] MCH [Entitic ma ss] by Automated count 25.9-34.0 [facility] MCHC Auto (RBC) [Mass/Vol]on 09-17-2024 MCHC (RBC) [Mass/Vol] MCHC [Mass/volume] by Automated count 29.9-35.2 [facility] MCV Auto (RBC) [Entitic vol] on 09-17-2024 MCV (RBC) [Entitic vol] MCV [Entitic vol ume] by Automated count High 80.0-94.0 [facility] No Panel Informationon 09-17 25-Hydroxy Vitamin D Total 72.5 ng/mL [facility] Comment on above: <20 ng/mL Vit D defi cient20-<30 ng/mL Vit D fvcasgruneut25-843 ng/mL Vit D sufficient>100 ng/mL Potential Toxicity Parathyroid Hormone (Intact) 54 pg/mL 15-65 [facility] Comment on above: Performed at: [facility] [place] [id number] Director: Yakov Sheikh PhD, Phone: [phone] Phosphorus Level 3.1 mg/dL 2.6-4.7 [facility] Urine Random Creatinine 65.69 mg/dL 20.0 0-300.0 0 [facility] Platelet mean volume Auto (B ld) [Entitic vol]on 09-17-2024 Platelet mean volume (Bld) [Entitic vol] Platelet mean volume [Entitic volume] in Blood by Automated count Low 9.5-13.5 [facility] Platelets Auto (Bld) [#/Vol] on 09-17-2024 Platelets (Bld) [#/Vol] Platelets [#/vol ume] in Blood by Automated count 150-450 [facility] RBC Auto (Bld) [#/Vol]on RBC (Bld) [#/Vol] Erythrocytes [#/volume] in Blood by Automated count Low 4.70-6.10 [facility] Serum or plasma anion gap de terminationon 09-17-2024 Anion gap [Moles/Vol] Serum or plasma an ion gap determination [facility] Urine protein/creatinine rat ioon 09-17-2024 Protein/Creatinine (U) [Ratio] Urine protein/creatinine ratio [facility] Alanine aminotransferase [En zymatic activity/volume] in Serum or PlasmaOrdered By: Onofre Francis on 09-15-2024 ALT [Catalytic activity/Vol] Alanine aminotransferase [Enzymatic activity/volume] in Serum or Plasma Low 7-52 [facility] Albumin [Mass/volume] in Ser um or Plasma by Bromocresol green (BCG) dye binding methoOrdered By: Onofre Francis on 09-15-2024 Albumin BCG dye [Mass/Vol] Albumin [Mass /volume] in Serum or Plasma by Bromocresol green (BCG) dye binding metho Low 3.5-5.7 [facility] Alkaline phosphatase [Enzyma tic activity/volume] in Serum or PlasmaOrdered By: Onofre Francis on 09-15-2024 ALP [Catalytic activity/Vol] Alkaline ph osphatase [Enzymatic activity/volume] in Serum or Plasma 34-104 [facility] Aspartate aminotransferase [ Enzymatic activity/volume] in Serum or PlasmaOrdered By: Onofre Francis on 09-15-2024 AST [Catalytic activity/Vol] Aspartate aminotransferase [Enzymatic activity/volume] in Serum or Plasma 13-39 [facility] Bilirubin.total [Mass/volume ] in Serum or PlasmaOrdered By: Onofre Francis on 09-15-2024 Bilirubin [Mass/Vol] Bilirubin.total [Mass/volume] in Serum or Plasma 0.3-1.0 [facility] Calcium [Mass/volume] in Ser um or PlasmaOrdered By: Onofre Francis on 09-15-2024 Calcium [Mass/Vol] Calcium [Mass/volume ] in Serum or Plasma 8.6-10.3 [facility] Carbon dioxide, total [Moles /volume] in Serum or PlasmaOrdered By: Onofre Francis on 09-15-2024 CO2 [Moles/Vol] Carbon dioxide, tota l [Moles/volume] in Serum or Plasma 21.0-31.0 [facility] Chloride [Moles/volume] in S iris or PlasmaOrdered By: Onofre Francis on 09-15-2024 Chloride [Moles/Vol] Chloride [Moles/volume] in Serum or Plasma 98-107 [facility] Comprehensive Metabolic Pane chidi 09-15-2024 Albumin [Mass/Vol] 3.3 g/dL Low 3.5-5.7 [facility] Comment on above: Order Comment: Comme nt TO BE DRAWN DAY OF SURGERY Performed By: #### C MP #### [address] Albumin/Globulin [Mass ratio] 1.4 {ratio} Normal [facility] Comment on above: Order Comment: Comme nt TO BE DRAWN DAY OF SURGERY Performed By: #### C MP #### [address] ALP [Catalytic activity/Vol] 58 U/L Normal 34-104 [facility] Comment on above: Order Comment: Comme nt TO BE DRAWN DAY OF SURGERY Performed By: #### C MP #### [address] ALT [Catalytic activity/Vol] 6 U/L Low 7-52 [facility] Comment on above: Order Comment: Comme nt TO BE DRAWN DAY OF SURGERY Performed By: #### C MP #### [address] Anion gap [Moles/Vol] 9.1 mmol/L Normal 6.0-15.0 [facility] Comment on above: Order Comment: Comme nt TO BE DRAWN DAY OF SURGERY Performed By: #### C MP #### [address] AST [Catalytic activity/Vol] 13 U/L Normal 13-39 [facility] Comment on above: Order Comment: Comme nt TO BE DRAWN DAY OF SURGERY Performed By: #### C MP #### [address] Bilirubin [Mass/Vol] 0.5 mg/dL Normal 0.3-1.0 [facility] Comment on above: Order Comment: Comme nt TO BE DRAWN DAY OF SURGERY Performed By: #### C MP #### [address] Calcium [Mass/Vol] 8.6 mg/dL Normal 8.6-10.3 [facility] Comment on above: Order Comment: Comme nt TO BE DRAWN DAY OF SURGERY Performed By: #### C MP #### [place] [address] [place] Chloride [Moles/Vol] 104 mmol/L Normal 98-107 [facility] Comment on above: Order Comment: Comme nt TO BE DRAWN DAY OF SURGERY Performed By: #### C MP #### [address] CO2 [Moles/Vol] 22.6 mmol/L Normal 21.0-31.0 [facility] Comment on above: Order Comment: Comme nt TO BE DRAWN DAY OF SURGERY Performed By: #### C MP #### [address] Creatinine [Mass/Vol] 2.45 mg/dL High 0.70-1.30 [facility] Comment on above: Order Comment: Comme nt TO BE DRAWN DAY OF SURGERY Performed By: #### C MP #### [address] Creatinine Clr Calc Pharmacy 31.20 Normal [facility] Comment on above: Order Comment: Comme nt TO BE DRAWN DAY OF SURGERY Result Comment: PERF ORMED BY: [place] [address] PATHOLOGIST [employer] LEAD GARCÍA AZUL M.D. Performed By: #### C MP #### [address] Estimated GFR 28.145 mL/Min Normal [facility] Comment on above: Order Comment: Comme nt TO BE DRAWN DAY OF SURGERY Performed By: #### C MP #### [address] Globulin (S) [Mass/Vol] 2.3 g/dL Normal [facility] Comment on above: Order Comment: Comme nt TO BE DRAWN DAY OF SURGERY Performed By: #### C MP #### [address] Glucose [Mass/Vol] 76 mg/dL Normal 70-100 [facility] Comment on above: Order Comment: Comme nt TO BE DRAWN DAY OF SURGERY Result Comment: [place] Glucose Reference Range is dependent on time and content of last meal. Glucose of more than 200 mg/dL in a nonstressed, ambulatory subject supports the diagnosis of Diabetes Mellitus. ADA recommended reference range Performed By: #### C MP #### [address] Potassium [Moles/Vol] 4.7 mmol/L Normal 3.5-5.1 [facility] Comment on above: Order Comment: Comme nt TO BE DRAWN DAY OF SURGERY Performed By: #### C MP #### [address] Protein [Mass/Vol] 5.6 g/dL Low 6.4-8.9 [facility] Comment on above: Order Comment: Comme nt TO BE DRAWN DAY OF SURGERY Performed By: #### C MP #### [address] Sodium [Moles/Vol] 131 mmol/L Low 136-145 [facility] Comment on above: Order Comment: Comme nt TO BE DRAWN DAY OF SURGERY Performed By: #### C MP #### [address] Urea nitrogen [Mass/Vol] 21 mg/dL Normal 7-25 [facility] Comment on above: Order Comment: Comme nt TO BE DRAWN DAY OF SURGERY Performed By: #### C MP #### [address] Creatinine [Mass/volume] in Serum or PlasmaOrdered By: Onofre Francis on 09-15-2024 Creatinine [Mass/Vol] Creatinine [Mass/volume] in Serum or Plasma High 0.70-1.30 [facility] Globulin Calc (S) [Mass/Vol] Ordered By: Onofre Francis on 09-15-2024 Globulin (S) [Mass/Vol] Serum globulin measurement by calculation (mass/volume) [facility] Glucose [Mass/volume] in Ser um or PlasmaOrdered By: Onofre Francis on 09-15-2024 Glucose [Mass/Vol] Glucose [Mass/volume ] in Serum or Plasma 70-100 [facility] Comment on above: ADA recommended refe rence rangeRandom Glucose Reference Range is dependent on time and content of last meal. Glucose of more than 200 mg/dL in a nonstressed, ambulatory subject supports the diagnosis of Diabetes Mellitus. No Panel InformationOrdered By: Onofre Francis on 09-15-2024 Estimated GFR (CKD-EPI) 28.145 mL/Min [facility] Creatinine Clearance (Chem 31.20 [facility] Potassium [Moles/volume] in Serum or PlasmaOrdered By: Onofre Francis on 09-15-2024 Potassium [Moles/Vol] Potassium [Moles/volume] in Serum or Plasma 3.5-5.1 [facility] Protein [Mass/volume] in Ser um or PlasmaOrdered By: Onofre Francis on 09-15-2024 Protein [Mass/Vol] Protein [Mass/volume ] in Serum or Plasma Low 6.4-8.9 [facility] Serum or plasma albumin/glob ulin mass ratioOrdered By: Onofre Francis on 09-15-2024 Albumin/Globulin [Mass ratio] Serum or plasma albumin/globulin mass ratio [facility] Serum or plasma anion gap de terminationOrdered By: Onofre Francis on 09-15-2024 Anion gap [Moles/Vol] Serum or plasma an ion gap determination 6.0-15.0 [facility] Sodium [Moles/volume] in Ser um or PlasmaOrdered By: Onofre Francis on 09-15-2024 Sodium [Moles/Vol] Sodium [Moles/volume ] in Serum or Plasma Low 136-145 [facility] Urea nitrogen [Mass/volume] in Serum or PlasmaOrdered By: Onofre Francis on 09-15-2024 Urea nitrogen [Mass/Vol] Urea nitrogen [Mass/volume] in Serum or Plasma 7-25 [facility] Activated Clotting Timeon Activated Clotting Time POC 268 s High 90-139 [facility] Comment on above: Result Comment: Refe rence Range: 90-139 (Non-heparinized) PERFORMED BY: [address] [place] [address] PATHOLOGIST [employer] LE[employer] GARCÍA AZUL M.D. Performed By: #### A CT #### [address] Activated Clotting Time POC 106 s Normal 90-139 [facility] Comment on above: Result Comment: Refe rence Range: 90-139 (Non-heparinized) PERFORMED BY: [place] [address] PATHOLOGIST [employer] LE[employer] GARCÍA AZUL M.D. Performed By: #### A CT #### [address] Amphetamine Screen Ql (U)Ord ered By: ADELINA BEDOLLA on 09-14-2024 Amphetamines Ql (U) Amphetamines screen Negativ e [facility] Barbiturates [Presence] in U rine by Screen methodOrdered By: ADELINA BEDOLLA on 09-14-2024 Barbiturates Screen Ql (U) Barbiturates [Presence] in Urine by Screen method Negative [facility] Basic Metabolic Panelon 08-28 Anion gap [Moles/Vol] 12.7 mmol/L Normal 6.0-15.0 [facility] Comment on above: Order Comment: Comme nt dos Performed By: #### B MP #### [address] Calcium [Mass/Vol] 9.4 mg/dL Normal 8.6-10.3 [facility] Comment on above: Order Comment: Comme nt dos Performed By: #### B MP #### [place] [address] [place] Chloride [Moles/Vol] 105 mmol/L Normal 98-107 [facility] Comment on above: Order Comment: Comme nt dos Performed By: #### B MP #### [address] CO2 [Moles/Vol] 19.8 mmol/L Low 21.0-31.0 [facility] Comment on above: Order Comment: Comme nt dos Performed By: #### B MP #### [address] Creatinine [Mass/Vol] 2.40 mg/dL High 0.70-1.30 [facility] Comment on above: Order Comment: Comme nt dos Performed By: #### B MP #### [address] Creatinine Clr Calc Pharmacy 31.85 Normal [facility] Comment on above: Order Comment: Comme nt dos Result Comment: PERF ORMED BY: [place] [address] PATHOLOGIST [employer] LEAD GARCÍA AZUL M.D. Performed By: #### B MP #### [address] Estimated GFR 28.850 mL/Min Normal [facility] Comment on above: Order Comment: Comme nt dos Performed By: #### B MP #### [address] Glucose [Mass/Vol] 84 mg/dL Normal 70-100 [facility] Comment on above: Order Comment: Comme nt dos Result Comment: [place] Glucose Reference Range is dependent on time and content of last meal. Glucose of more than 200 mg/dL in a nonstressed, ambulatory subject supports the diagnosis of Diabetes Mellitus. ADA recommended reference range Performed By: #### B MP #### [address] Potassium [Moles/Vol] 4.5 mmol/L Normal 3.5-5.1 [facility] Comment on above: Order Comment: Comme nt dos Performed By: #### B MP #### [place] [address] [place] Sodium [Moles/Vol] 133 mmol/L Low 136-145 [facility] Comment on above: Order Comment: Comme nt dos Performed By: #### B MP #### [address] Urea nitrogen [Mass/Vol] 22 mg/dL Normal 7-25 [facility] Comment on above: Order Comment: Comme nt dos Performed By: #### B MP #### [place] [id number] [place] Benzodiazepines Screen Ql (U )Ordered By: ADELINA BEDOLLA on 09-14-2024 Benzodiazepines Ql (U) Benzodiazepines [Presence] in Urine by Screen method Negative [facility] Benzoylecgonine [Presence] i n Urine by Screen methodOrdered By: ADELINA BEDOLLA on 09-14-2024 Benzoylecgonine Screen Ql (U) Benzoylecgonine [Presence] in Urine by Screen method Negative [facility] Blood activated clotting tamara e by coagulation assayOrdered By: Onofre Francis on 09-14-2024 ACT Coag (Bld) Blood activated clotting time by coagulation assay High 90-139 [facility] Comment on above: Reference Range: 90- 139 (Non-heparinized) Cannabinoids [Presence] in U rine by Screen methodOrdered By: ADELINA BEDOLLA on 09-14-2024 Cannabinoids Screen Ql (U) Cannabinoids [Presence] in Urine by Screen method High Negative [facility] Comment on above: These are unconfirme d results and should not be used for legal purposes. Drug Cut-Off Concentration: AMPH 1000 ng/mL NORMA 200 ng/mL LUIS 200 ng/mL COCM 300 ng/mL OP 300 ng/mL PCP 25 ng/mL THC 20 ng/mL Drug Screen,Urineon 09-14-19 25 Amphetamine Screen,Urine Negative Normal Negative [facility] Comment on above: Performed By: #### U RDS #### [place] [address] [place] Barbiturate Screen,Urine Negative Normal Negative [facility] Comment on above: Performed By: #### U RDS #### [facility] [address] [place] [address] [place] Benzodiazepines Screen,Urine Negative Normal Negativ e [facility] Comment on above: Performed By: #### U RDS #### [place] [address] [place] Cannabinoid Screen,Urine Positive High Negative [facility] Comment on above: Result Comment: Thes e are unconfirmed results and should not be used for legal purposes. Drug Cut-Off Concentration: AMPH 1000 ng/mL NORMA 200 ng/mL LUIS 200 ng/mL COCM 300 ng/mL OP 300 ng/mL PCP 25 ng/mL THC 20 ng/mL PERFORMED BY: [address] [place] [address] PATHOLOGIST [employer] LEAD GARCÍA AZUL M.D. Performed By: #### U RDS #### [address] Cocaine Screen,Urine Negative Normal Negative [facility] Comment on above: Performed By: #### U RDS #### [address] Opiate Screen,Urine Negative Normal Negative [facility] Comment on above: Performed By: #### U RDS #### [address] Phencyclidine Screen,Urine Negative Normal Negative [facility] Comment on above: Performed By: #### U RDS #### [address] Glucose Glucometer (dC) [M ass/Vol]Ordered By: Onofre Francis on 09-14-2024 Glucose [Mass/Vol] Capillary blood glucose measurement by glucometer (mass/volume) [facility] Comment on above: Random Glucose Refer ence Range is dependent on time and content of last meal. Glucose of more than 200 mg/dL in a nonstressed, ambulatory subject supports the diagnosis of Diabetes Mellitus. Glucose Poct Glucometerson 0 09-14-2024 Commemt1 Glu2: Cleaned Meter Normal [facility] Comment on above: Result Comment: PERF ORMED BY: [facility] [address] [place] [address] PATHOLOGIST [employer] LE[employer] GARCÍA AZUL M.D. Performed By: #### G LULS #### Point of Care testing , Glucose [Mass/Vol] 88 mg/dL Normal [facility] Comment on above: Result Comment: [place] om Glucose Reference Range is dependent on [...] clot firmness [Length] in Blood by Thromboelastography [facility] Comment on above: See report. Scanned copy available in EMR. No Panel InformationOrdered By: Onofre Francis on 09-14-2024 Bedside Glucose Comment Glu2: cleaned meter [facility] Opiates [Presence] in Urine by Screen methodOrdered By: ADELINA BEDOLLA on 09-14-2024 Opiates Screen Ql (U) Opiates [Presence] in Urine by Screen method Negative [facility] Phencyclidine Screen Ql (U)O rdered By: ADELINA BEDOLLA on 09-14-2024 Phencyclidine Ql (U) Phencyclidine [Presence] in Urine by Screen method Negative [facility] TEG; Platelet Mappingon 08-28 TEG; Platelet Mapping . Normal [facility] Comment on above: Result Comment: See report. Scanned copy available in EMR. PERFORMED BY: [facility] [address] [facility] [place] [id number] PATHOLOGIST [employer] LEAD GARCÍA AZUL M.D. Performed By: #### T EG PLT MAPPING ####[facility] Estimated glomerular filtrat ion rate (GFR) non- Americanon 09-13-2024 GFR/1.73 sq M.predicted among non-blacks MDRD (S/P/Bld) [Vol rate/Area] Estimated glomerular filtration rate (GFR) non- Low >=60 mL/min/1.73 m 2 [facility] Laboratory - Chemistry and C hemistry - challengeon 09-13-2024 Calcium [Mass/Vol] 9.0 mg/dL 8.5-10.1 [facility] Chloride [Moles/Vol] 99 mmol/L 98-107 [facility] CO2 [Moles/Vol] 26.2 mmol/L 21.0-32.0 [facility] Creatinine [Mass/Vol] 2.78 mg/dL High 0.70-1.30 [facility] GFR/1.73 sq M.predicted MDRD (S/P/Bld) [Vol rate/Area] 28 mL/min/{1.73_m2} Low >=60 mL/min/1.73 m 2 [facility] Glucose [Mass/Vol] 108 mg/dL High 74-106 [facility] Potassium [Moles/Vol] 4.4 mmol/L 3.5-5.1 [facility] Sodium [Moles/Vol] 132 mmol/L Low 136-145 [facility] Urea nitrogen [Mass/Vol] 23.0 mg/dL High 7.0-18.0 [facility] Urea nitrogen/Creatinine [Mass ratio] 8.3 mg/mg [facility] Serum or plasma anion gap de terminationon 09-13-2024 Anion gap [Moles/Vol] Serum or plasma an ion gap determination [facility] CT soft tissue neck wo conon 09-03-2024 CT soft tissue neck wo [facility] [place] [address] CT Scan Report Signed Patient: Kingston Guevara MR#: [id number] : 1955 Acct:[id number] Age/Sex: 69 / M ADM Date: 09/03/24 Loc: CT Room: Type: [facility] Attending Dr: Shirley HOFFMAN Copies to: Shirley Collins APRN Ordering Provider: Shirley Collins APRN Date of Service: 09/03/24 CT/CT head/brain wo con: I65.21 - Occlusion and stenosis of right carotid artery ([id number]) CT/CT soft tissue neck wo con: I65.21 [...] Dwaine Moreno M.D.09/03/2024 1:35 PM Dictation Location: [place] [address] Transcribed By: [facility] 09/03/24 1335 Dictated By: Dwaine Moreno II, MD 09/03/24 1325 Signed By: 09/03/24 1335 Normal [facility] Laboratory - Chemistry and C hemistry - challengeon 09-03-2024 Free T4 [Mass/Vol] 0.70 ng/dL Low 0.76-1.46 [facility] Osmolality [Osmolality] 254 mosm/kg Abnormal 280-301 [facility] Comment on above: Performed at: BN - [facility] [address] [id number] Director: Brenda Ojeda MD, Phone: [phone] TSH Qn 5.360 m[IU]/L High 0.358-3.740 [facility] Urate [Mass/Vol] 6.1 mg/dL 3.5-7.2 [facility] Sodium (U) [Moles/Vol] 29 mmol/L Low 30-90 [facility] No Panel Informationon 09-03 Urine Osmolality 226 mOsmol/kg . [facility] Comment on above: 24 hr : 300 - 900 Ra ndom: 50 - 1400 After 12hr fluid restriction: >850Performed at: BN - [facility] [address] [id number] Director: Brenda Ojeda MD, Phone: [phone] Basic Metabolic Panelon Anion gap [Moles/Vol] 6.2 mmol/L Normal 6.0-15.0 [facility] Comment on above: Performed By: #### B MP #### [address] Calcium [Mass/Vol] 8.5 mg/dL Low 8.6-10.3 [facility] Comment on above: Result Comment: PERF ORMED BY: [place] [address] PATHOLOGIST [employer] LEAD GARCÍA AZUL M.D. Performed By: #### B MP #### [place] [address] [place] Chloride [Moles/Vol] 97 mmol/L Low 98-107 [facility] Comment on above: Performed By: #### B MP #### [place] [id number] [place] CO2 [Moles/Vol] 23.5 mmol/L Normal 21.0-31.0 [facility] Comment on above: Performed By: #### B MP #### [place] [id number] [place] Creatinine [Mass/Vol] 2.16 mg/dL High 0.70-1.30 [facility] Comment on above: Performed By: #### B MP #### [address] Estimated GFR 32.739 mL/Min Normal [facility] Comment on above: Performed By: #### B MP #### [address] Glucose [Mass/Vol] 82 mg/dL Normal 70-100 [facility] Comment on above: Result Comment: [facility][note 3] Glucose Reference Range is dependent on time and content of last meal. Glucose of more than 200 mg/dL in a nonstressed, ambulatory subject supports the diagnosis of Diabetes Mellitus. ADA recommended reference range Performed By: #### B MP #### [address] Potassium [Moles/Vol] 4.7 mmol/L Normal 3.5-5.1 [facility] Comment on above: Performed By: #### B MP #### [address] Sodium [Moles/Vol] 122 mmol/L Off scale low 136-145 [facility] Comment on above: Result Comment: Crit ical Result Called to and read back by: ONOFRE GRANDE at: 09/02/2024 17:42:57 by:[id number] Performed By: #### B MP #### [address] Urea nitrogen [Mass/Vol] 16 mg/dL Normal 7-25 [facility] Comment on above: Performed By: #### B MP #### [place] [address] [place] Basophils Auto (Bld) [#/Vol] Ordered By: Onofre Francis on 09-02-2024 Basophils (Bld) [#/Vol] Automated basoph il count 0.0-0.2 [facility] Basophils/100 WBC Auto (Bld) Ordered By: Onofre Francis on 09-02-2024 Basophils/100 WBC (Bld) Automated basophil % . [facility] Calcium [Mass/volume] in Ser um or PlasmaOrdered By: Onofre Francis on 09-02-2024 Calcium [Mass/Vol] Calcium [Mass/volume ] in Serum or Plasma Low 8.6-10.3 [facility] Carbon dioxide, total [Moles /volume] in Serum or PlasmaOrdered By: Onofre Francis on 09-02-2024 CO2 [Moles/Vol] Carbon dioxide, tota l [Moles/volume] in Serum or Plasma 21.0-31.0 [facility] Chloride [Moles/volume] in S iris or PlasmaOrdered By: Onofre Francis on 09-02-2024 Chloride [Moles/Vol] Chloride [Moles/volume] in Serum or Plasma Low 98-107 [facility] Complete Blood Count Auto Di ffon 09-02-2024 Basophils (Bld) [#/Vol] 0.1 10*3/uL Normal 0.0-0.2 [facility] Comment on above: Result Comment: PERF ORMED BY: [place] [address] PATHOLOGIST [employer] LEAD GARCÍA AZUL M.D. Performed By: #### C BC #### [address] Basophils/100 WBC (Bld) 1.2 % Normal . [facility] Comment on above: Performed By: #### C BC #### [place] [address] [place] Eosinophils (Bld) [#/Vol] 0.7 10*3/uL High 0.0-0.45 [facility] Comment on above: Performed By: #### C BC #### [address] Eosinophils/100 WBC (Bld) 8.8 % Normal . [facility] Comment on above: Performed By: #### C BC #### [address] Erythrocyte distribution width (RBC) [Ratio] 13.6 % Normal 12.0-14.8 [facility] Comment on above: Performed By: #### C BC #### [address] Hematocrit (Bld) [Volume fraction] 36.8 % Low 38.8-50.0 [facility] Comment on above: Performed By: #### C BC #### [address] Hemoglobin (Bld) [Mass/Vol] 12.9 g/dL Low 13.0-17. 0 [facility] Comment on above: Performed By: #### C BC #### [address] Lymphocytes (Bld) [#/Vol] 1.5 10*3/uL Normal 1.00-4.8 [facility] Comment on above: Performed By: #### C BC #### [address] Lymphocytes/100 WBC (Bld) 18.3 % Normal . [facility] Comment on above: Performed By: #### C BC #### [address] MCH (RBC) [Entitic mass] 33.4 pg Normal 27.5-35.2 [facility] Comment on above: Performed By: #### C BC #### [address] MCV (RBC) [Entitic vol] 95.4 fL Normal 83.5-101 [facility] Comment on above: Performed By: #### C BC #### [address] Mean Corpuscular HGB Conc 35.0 g/dL Normal 32.5-35.6 [facility] Comment on above: Performed By: #### C BC #### [address] Monocytes (Bld) [#/Vol] 0.6 10*3/uL Normal 0.0-0.8 [facility] Comment on above: Performed By: #### C BC #### [address] Monocytes/100 WBC (Bld) 7.6 % Normal . [facility] Comment on above: Performed By: #### C BC #### [address] Neutrophils (Bld) [#/Vol] 5.3 10*3/uL Normal 1.8-7.7 [facility] Comment on above: Performed By: #### C BC #### [address] Neutrophils/100 WBC (Bld) 64.1 % Normal . [facility] Comment on above: Performed By: #### C BC #### [address] NRBC% 0.0 /100{WBC} Normal 0-0.5 [facility] Comment on above: Performed By: #### C BC #### [address] Platelet mean volume (Bld) [Entitic vol] 7.4 fL Normal 6.6-10.1 [facility] Comment on above: Performed By: #### C BC #### [address] Platelets (Bld) [#/Vol] 226 10*3/uL Normal 150-450 [facility] Comment on above: Performed By: #### C BC #### [address] RBC (Bld) [#/Vol] 3.85 10*6/uL Low 3.90-5.60 [facility] Comment on above: Performed By: #### C BC #### [address] WBC (Bld) [#/Vol] 8.3 10*3/uL Normal 4.1-10.5 [facility] Comment on above: Performed By: #### C BC #### [address] Creatinine [Mass/volume] in Serum or PlasmaOrdered By: Onofre Francis on 09-02-2024 Creatinine [Mass/Vol] Creatinine [Mass/volume] in Serum or Plasma High 0.70-1.30 [facility] ECG 12 lead ECGon 09-02-2024 ECG 12 lead ECG [facility] Main [place] [id number] Electrocardiograph Report Signed Patient: Kingston Guevara MR#: [id number] : 1955 Acct:[id number] Age/Sex: 69 / M ADM Date: 09/02/24 Loc: Room: Type: [facility] Attending Dr: Onofre Francis MD Ordering [...] MD 0 09/03/24 1525 Normal [facility] Eosinophils Auto (Bld) [#/Vo l]Ordered By: Onofre Francis on 09-02-2024 Eosinophils (Bld) [#/Vol] Automated eosi nophil count High 0.0-0.45 [facility] Eosinophils/100 WBC Auto (Bl d)Ordered By: Onofre Francis on 09-02-2024 Eosinophils/100 WBC (Bld) Automated eosi nophil % . [facility] Erythrocyte distribution wid th Auto (RBC) [Ratio]Ordered By: Onofre Francis on 09-02-2024 Erythrocyte distribution width (RBC) [Ratio] Erythrocyte distribution width [Ratio] by Automated count 12.0-14.8 [facility] Glucose [Mass/volume] in Ser um or PlasmaOrdered By: Onofre Francis on 09-02-2024 Glucose [Mass/Vol] Glucose [Mass/volume ] in Serum or Plasma 70-100 [facility] Comment on above: ADA recommended refe rence rangeRandom Glucose Reference Range is dependent on time and content of last meal. Glucose of more than 200 mg/dL in a nonstressed, ambulatory subject supports the diagnosis of Diabetes Mellitus. Hematocrit Auto (Bld) [Volum e fraction]Ordered By: Onofre Francis on 09-02-2024 Hematocrit (Bld) [Volume fraction] Hematocrit [Volume Fraction] of Blood by Automated count Low 38.8-50.0 [facility] Hemoglobin [Mass/volume] in BloodOrdered By: Onofre Francis on 09-02-2024 Hemoglobin (Bld) [Mass/Vol] Hemoglobin [Mass/volume] in Blood Low 13.0-17.0 [facility] Leukocytes [#/volume] correc mitchell for nucleated erythrocytes in Blood by Automated counOrdered By: Onofre Francis on 09-02-2024 WBC corrected for nucl RBC Auto (Bld) [#/Vol] Leukocytes [#/volume] corrected for nucleated erythrocytes in Blood by Automated coun 4.1-10.5 [facility] Lymphocytes Auto (Bld) [#/Vo l]Ordered By: Onofre Francis on 09-02-2024 Lymphocytes (Bld) [#/Vol] Lymphocytes [#/volume] in Blood by Automated count 1.00-4.8 [facility] Lymphocytes/100 WBC Auto (Bl d)Ordered By: Onofre Francis on 09-02-2024 Lymphocytes/100 WBC (Bld) Lymphocytes/10 0 leukocytes in Blood by Automated count . [facility] MCH Auto (RBC) [Entitic mass ]Ordered By: Onofre Francis on 09-02-2024 MCH (RBC) [Entitic mass] MCH [Entitic ma ss] by Automated count 27.5-35.2 [facility] MCHC Auto (RBC) [Mass/Vol]Or dered By: Onofre Francis on 09-02-2024 MCHC (RBC) [Mass/Vol] MCHC [Mass/volume] by Automated count 32.5-35.6 [facility] MCV Auto (RBC) [Entitic vol] Ordered By: Onofre Francis on 09-02-2024 MCV (RBC) [Entitic vol] MCV [Entitic vol ume] by Automated count 83.5-101 [facility] Monocytes Auto (Bld) [#/Vol] Ordered By: Onofre Francis on 09-02-2024 Monocytes (Bld) [#/Vol] Automated blood monocyte count 0.0-0.8 [facility] Monocytes/100 WBC Auto (Bld) Ordered By: Onofre Francis on 09-02-2024 Monocytes/100 WBC (Bld) Automated monocyte % . [facility] Neutrophils Auto (Bld) [#/Vo l]Ordered By: Onofre Francis on 09-02-2024 Neutrophils (Bld) [#/Vol] Neutrophils [#/volume] in Blood by Automated count 1.8-7.7 [facility] Neutrophils/100 WBC Auto (Bl d)Ordered By: Onofre Francis on 09-02-2024 Neutrophils/100 WBC (Bld) Automated neut rophil % . [facility] No Panel InformationOrdered By: Onofre Francis on 09-02-2024 Estimated GFR (CKD-EPI) 32.739 mL/Min [facility] Creatinine Clearance (Chem N/A [facility] Nucleated erythrocytes [Pres ence] in Blood by Automated countOrdered By: Onofre Francis on 09-02-2024 Nucleated RBC Auto Ql (Bld) Nucleated erythrocytes [Presence] in Blood by Automated count 0-0.5 [facility] Platelet mean volume Auto (B ld) [Entitic vol]Ordered By: Onofre Francis on 09-02-2024 Platelet mean volume (Bld) [Entitic vol] Platelet mean volume [Entitic volume] in Blood by Automated count 6.6-10.1 [facility] Platelets Auto (Bld) [#/Vol] Ordered By: Onofre Francis on 09-02-2024 Platelets (Bld) [#/Vol] Platelets [#/vol ume] in Blood by Automated count 150-450 [facility] Potassium [Moles/volume] in Serum or PlasmaOrdered By: Onofre Francis on 09-02-2024 Potassium [Moles/Vol] Potassium [Moles/volume] in Serum or Plasma 3.5-5.1 [facility] RBC Auto (Bld) [#/Vol]Ordere d By: Onofre Francis on 09-02-2024 RBC (Bld) [#/Vol] Erythrocytes [#/volume] in Blood by Automated count Low 3.90-5.60 [facility] Serum or plasma anion gap de terminationOrdered By: Onofre Francis on 09-02-2024 Anion gap [Moles/Vol] Serum or plasma an ion gap determination 6.0-15.0 [facility] Sodium [Moles/volume] in Ser um or PlasmaOrdered By: Onofre Francis on 09-02-2024 Sodium [Moles/Vol] Sodium [Moles/volume ] in Serum or Plasma Critically low 136-145 [facility] Comment on above: Critical Result Call ed to and read back by: ONOFRE GRANDE at: 09/02/2024 17:42:57 by:[id number] Urea nitrogen [Mass/volume] in Serum or PlasmaOrdered By: Onofre Francis on 09-02-2024 Urea nitrogen [Mass/Vol] Urea nitrogen [Mass/volume] in Serum or Plasma 02-18 [facility] WBC Auto (Bld) [#/Vol]Ordere d By: Onofre Francis on 09-02-2024 WBC (Bld) [#/Vol] Leukocytes [#/volume ] in Blood by Automated count 4.1-10.5 [facility] Blood Urea Nitrogenon 2024 Urea nitrogen [Mass/Vol] 14 mg/dL Normal 02-18 [facility] Comment on above: Performed By: #### B UN, CREAT ####[facility] [id number] [place] [id number] [facility] Creatinineon 08-30-2024 Creatinine [Mass/Vol] 2.19 mg/dL High 0.70-1.30 [facility] Comment on above: Performed By: #### B UN, CREAT ####[facility] [id number] [place] [id number] [place] Creatinine Clr Calc Pharmacy 33.60 Normal [facility] Comment on above: Result Comment: PERF ORMED BY: [facility] [address] [place] [address] PATHOLOGIST [employer] LEAD GARCÍA AZUL M.D. Performed By: #### B UN, CREAT ####[facility] [id number] [place] [id number] [facility] Estimated GFR 32.202 mL/Min Normal [facility] Comment on above: Performed By: #### B UN, CREAT ####[facility] [id number] [place] [id number] [facility] Creatinine [Mass/volume] in Serum or PlasmaOrdered By: Onofre Francis on 08-30-2024 Creatinine [Mass/Vol] Creatinine [Mass/volume] in Serum or Plasma High 0.70-1.30 [facility] No Panel InformationOrdered By: Onofre Francis on 08-30-2024 Estimated GFR (CKD-EPI) 32.202 mL/Min [facility] Creatinine Clearance (Chem 33.60 [facility] Urea nitrogen [Mass/volume] in Serum or PlasmaOrdered By: Onofre Francis on 08-30-2024 Urea nitrogen [Mass/Vol] Urea nitrogen [Mass/volume] in Serum or Plasma 7-25 [facility] Basophils Auto (Bld) [#/Vol] on 07-07-2024 Basophils (Bld) [#/Vol] Automated basoph il count 0.0-0.1 [facility] Basophils/100 WBC Auto (Bld) on 07-07-2024 Basophils/100 WBC (Bld) Automated basophil % 0. 2-2.0 [facility] Cholesterol in LDL Calc [Mas s/Vol]on 07-07-2024 Cholesterol in LDL [Mass/Vol] Cholesterol in LDL [Mass/volume] in Serum or Plasma by calculation [facility] Comment on above: <100 mg/dl [id number] 0-129 mg/dl NEAR OR ABOVE [id number] mg/dl BORDERLINE [id number] mg/dl HIGH>190 mg/dl VERY HIGH Cholesterol in VLDL Calc [Ma ss/Vol]on 07-07-2024 Cholesterol in VLDL [Mass/Vol] Cholesterol in VLDL [Mass/volume] in Serum or Plasma by calculation [facility] Eosinophils/100 WBC Auto (Bl d)on 07-07-2024 Eosinophils/100 WBC (Bld) Automated eosi nophil % High 0.9-7.0 [facility] Erythrocyte distribution wid th Auto (RBC) [Ratio]on 07-07-2024 Erythrocyte distribution width (RBC) [Ratio] Erythrocyte distribution width [Ratio] by Automated count 11.0-15.0 [facility] Estimated glomerular filtrat ion rate (GFR) non- Americanon 07-07-2024 GFR/1.73 sq M.predicted among non-blacks MDRD (S/P/Bld) [Vol rate/Area] Estimated glomerular filtration rate (GFR) non- Low >=60 mL/min/1.73 m 2 [facility] Globulin Calc (S) [Mass/Vol] on 07-07-2024 Globulin (S) [Mass/Vol] Serum globulin measurement by calculation (mass/volume) [facility] Hematocrit Auto (Bld) [Volum e fraction]on 07-07-2024 Hematocrit (Bld) [Volume fraction] Hematocrit [Volume Fraction] of Blood by Automated count Low 42.0-54.0 [facility] Hemoglobin [Mass/volume] in Bloodon 07-07-2024 Hemoglobin (Bld) [Mass/Vol] Hemoglobin [Mass/volume] in Blood Low 14.0-18.0 [facility] Laboratory - Chemistry and C hemistry - challengeon 07-07-2024 Albumin [Mass/Vol] 3.5 g/dL 3.4-5.0 [facility] ALP [Catalytic activity/Vol] 68 U/L 46-116 [facility] ALT [Catalytic activity/Vol] 19 U/L 16-63 [facility] AST [Catalytic activity/Vol] 22 U/L 15-37 [facility] Bilirubin [Mass/Vol] 0.5 mg/dL 0.2-1.0 [facility] Calcium [Mass/Vol] 8.6 mg/dL 8.5-10.1 [facility] Chloride [Moles/Vol] 90 mmol/L Low 98-107 [facility] Cholesterol [Mass/Vol] 114 mg/dL <=200 [facility] Cholesterol in HDL [Mass/Vol] 34 mg/dL Low 40-60 [facility] Comment on above: > or =60 mg/dl - LOW CARDIOVASCULAR RISK<40 mg/dl - HIGH CARDIOVASCULAR RISK CO2 [Moles/Vol] 25.0 mmol/L 21.0-32.0 [facility] Creatinine [Mass/Vol] 2.52 mg/dL High 0.70-1.30 [facility] GFR/1.73 sq M.predicted MDRD (S/P/Bld) [Vol rate/Area] 31 mL/min/{1.73_m2} Low >=60 mL/min/1.73 m 2 [facility] Glucose [Mass/Vol] 89 mg/dL 74-106 [facility] Potassium [Moles/Vol] 4.8 mmol/L 3.5-5.1 [facility] Protein [Mass/Vol] 7.0 g/dL 6.4-8.2 [facility] Sodium [Moles/Vol] 122 mmol/L Critically low 136-145 [facility] Comment on above: RESULTS CALLED TO DEANNA MCKNIGHT RMA Triglyceride [Mass/Vol] 119 mg/dL <=150 [facility] Urea nitrogen [Mass/Vol] 18.0 mg/dL 7.0-18.0 [facility] Urea nitrogen/Creatinine [Mass ratio] 7.1 mg/mg [facility] Laboratory - Hematology and Cell countson 07-07-2024 Immature granulocytes/100 WBC (Bld) 0.4 % 0.0-0.5 [facility] Leukocytes [#/volume] correc mitchell for nucleated erythrocytes in Blood by Automated counon 07-07-2024 WBC corrected for nucl RBC Auto (Bld) [#/Vol] Leukocytes [#/volume] corrected for nucleated erythrocytes in Blood by Automated coun 4.0-11.0 [facility] Lymphocytes Auto (Bld) [#/Vo l]on 07-07-2024 Lymphocytes (Bld) [#/Vol] Lymphocytes [#/volume] in Blood by Automated count 1.2-3.8 [facility] Lymphocytes/100 WBC Auto (Bl d)on 07-07-2024 Lymphocytes/100 WBC (Bld) Lymphocytes/10 0 leukocytes in Blood by Automated count Low 20.5-60.0 [facility] MCH Auto (RBC) [Entitic mass ]on 07-07-2024 MCH (RBC) [Entitic mass] MCH [Entitic ma ss] by Automated count 25.9-34.0 [facility] MCHC Auto (RBC) [Mass/Vol]on 07-07-2024 MCHC (RBC) [Mass/Vol] MCHC [Mass/volume] by Automated count High 29.9-35.2 [facility] MCV Auto (RBC) [Entitic vol] on 07-07-2024 MCV (RBC) [Entitic vol] MCV [Entitic vol ume] by Automated count 80.0-94.0 [facility] Monocytes Auto (Bld) [#/Vol] on 07-07-2024 Monocytes (Bld) [#/Vol] Automated blood monocyte count 0.3-0.8 [facility] Monocytes/100 WBC Auto (Bld) on 07-07-2024 Monocytes/100 WBC (Bld) Automated monocyte % 1. 7-12.0 [facility] Neutrophils Auto (Bld) [#/Vo l]on 07-07-2024 Neutrophils (Bld) [#/Vol] Neutrophils [#/volume] in Blood by Automated count 1.4-6.5 [facility] Neutrophils/100 WBC Auto (Bl d)on 07-07-2024 Neutrophils/100 WBC (Bld) Automated neut rophil % 43.0-75.0 [facility] No Panel Informationon 07-07 Eosinophils # (Auto) 0.8 10 3/uL High 0.0-0.7 [facility] Immature Granulocyte # (Auto) 0.03 10 3/uL 0.00-0.03 [facility] Prostate Specific Antigen Screen 0.82 ng/mL <=4.00 [facility] Platelet mean volume Auto (B ld) [Entitic vol]on 07-07-2024 Platelet mean volume (Bld) [Entitic vol] Platelet mean volume [Entitic volume] in Blood by Automated count Low 9.5-13.5 [facility] Platelets Auto (Bld) [#/Vol] on 07-07-2024 Platelets (Bld) [#/Vol] Platelets [#/vol ume] in Blood by Automated count 150-450 [facility] RBC Auto (Bld) [#/Vol]on RBC (Bld) [#/Vol] Erythrocytes [#/volume] in Blood by Automated count Low 4.70-6.10 [facility] Serum or plasma albumin/glob ulin mass ratioon 07-07-2024 Albumin/Globulin [Mass ratio] Serum or plasma albumin/globulin mass ratio [facility] Serum or plasma anion gap de terminationon 07-07-2024 Anion gap [Moles/Vol] Serum or plasma an ion gap determination [facility] Serum or plasma total choles terol/high density lipoprotein (HDL) cholesterol mass edith 07-07-2024 Cholesterol.total/Cholestero l in HDL [Mass ratio] Serum or plasma total cholesterol/high density lipoprotein (HDL) cholesterol mass rat [facility] Comment on above: 3.3 - 4.4 LOW RISK4. 4 - 7.1 AVERAGE RISK7.1 - 11.0 MODERATE RISK>11.0 HIGH RISK Erythrocyte distribution wid th Auto (RBC) [Ratio]on 05-17-2024 Erythrocyte distribution width (RBC) [Ratio] 12.5 % 11.0-15.0 [facility] Estimated glomerular filtrat ion rate (GFR) non- Americanon 05-17-2024 GFR/1.73 sq M.predicted among non-blacks MDRD (S/P/Bld) [Vol rate/Area] 27 mL/min/{1.73_m2} Low >=60 mL/min/1.73 m 2 [facility] Hematocrit Auto (Bld) [Volum e fraction]on 05-17-2024 Hematocrit (Bld) [Volume fraction] 36.5 % Low 42.0-54.0 [facility] Hemoglobin [Mass/volume] in Bloodon 05-17-2024 Hemoglobin (Bld) [Mass/Vol] 13.0 g/dL Low 14.0-18. 0 [facility] Iron binding capacity [Mass/ volume] in Serum or Plasmaon 05-17-2024 Iron binding capacity [Mass/Vol] 177.0 ug/dL Low 250.0-450.0 [facility] Iron saturation [Mass Fracti on] in Serum or Plasmaon 05-17-2024 Iron saturation [Mass fraction] 35.0 % [facility] Laboratory - Chemistry and C hemistry - challengeon 05-17-2024 Albumin [Mass/Vol] 3.2 g/dL Low 3.4-5.0 [facility] Calcium [Mass/Vol] 8.4 mg/dL Low 8.5-10.1 [facility] Chloride [Moles/Vol] 93 mmol/L Low 98-107 [facility] CO2 [Moles/Vol] 24.1 mmol/L 21.0-32.0 [facility] Creatinine [Mass/Vol] 2.43 mg/dL High 0.70-1.30 [facility] Ferritin [Mass/Vol] 297.0 ng/mL 26.0-388.0 [facility] GFR/1.73 sq M.predicted MDRD (S/P/Bld) [Vol rate/Area] 33 mL/min/{1.73_m2} Low >=60 mL/min/1.73 m 2 [facility] Glucose [Mass/Vol] 95 mg/dL 74-106 [facility] Iron [Mass/Vol] 62.0 ug/dL Low 65.0-175.0 [facility] Magnesium [Mass/Vol] 2.0 mg/dL 1.8-2.4 [facility] Potassium [Moles/Vol] 4.7 mmol/L 3.5-5.1 [facility] Sodium [Moles/Vol] 128 mmol/L Low 136-145 [facility] Urate [Mass/Vol] 5.6 mg/dL 3.5-7.2 [facility] Urea nitrogen [Mass/Vol] 17.0 mg/dL 7.0-18.0 [facility] Urea nitrogen/Creatinine [Mass ratio] 7.0 mg/mg [facility] Bilirubin Ql (U) Negative NEGATIVE [facility] Glucose (U) [Mass/Vol] Negative NEGATIVE [facility] Ql ([facility] Negative NEGATIVE [facility] pH (U) 6.0 [pH] 5.0-9.0 [facility] Specific gravity (U) [Rel density] <=1.005 Abnormal 1.005-1.025 [facility] Urobilinogen Qn (U) 0.2 {Edgar'U}/dL 0.2-1.0 [facility] Laboratory - Specimen inform ationon 05-17-2024 Appearance (U) CLEAR CLEAR [facility] Color (U) LT. YELLOW YELLOW [facility] Laboratory - Urinalysison Leukocyte esterase Test strip Ql (U) Negative NEGATIVE [facility] Mucus Ql (Urine sed) NONE SEEN NONE SEEN [facility] Nitrite Ql (U) Negative NEGATIVE [facility] Protein (U) [Mass/Vol] 14.8 mg/dL High <=11.9 [facility] Protein Ql (U) Negative NEG/TRACE [facility] Leukocytes [#/volume] correc mitchell for nucleated erythrocytes in Blood by Automated counon 05-17-2024 WBC corrected for nucl RBC Auto (Bld) [#/Vol] 8.6 10 3/uL 4.0-11.0 [facility] MCH Auto (RBC) [Entitic mass ]on 05-17-2024 MCH (RBC) [Entitic mass] 33.2 pg 25.9-34.0 [facility] MCHC Auto (RBC) [Mass/Vol]on 05-17-2024 MCHC (RBC) [Mass/Vol] 35.6 g/dL High 29.9-35.2 [facility] MCV Auto (RBC) [Entitic vol] on 05-17-2024 MCV (RBC) [Entitic vol] 93.1 fL 80.0-94.0 [facility] No Panel Informationon 05-17 25-Hydroxy Vitamin D Total 81.1 ng/mL [facility] Comment on above: <20 ng/mL Vit D defi cient20-<30 ng/mL Vit D cdtkoxrcqdoh33-489 ng/mL Vit D sufficient>100 ng/mL Potential Toxicity Parathyroid Hormone (Intact) 51 pg/mL 15-65 [facility] Comment on above: Performed at: [facility] [id number] [place], [place] [id number] Director: Yakov Sheikh PhD, Phone: [phone] Phosphorus Level 3.4 mg/dL 2.6-4.7 [facility] Urine Bacteria TRACE #/HPF Abnormal NONE SEEN [facility] Urine Culture Reflexed NO [facility] Urine Occult Blood Negative NEGATIVE [facility] Urine Other Casts NONE SEEN #/LPF NONE SEEN [facility] Urine Other Crystals None Seen #/HPF None Seen [facility] Urine Random Creatinine 40.25 mg/dL 20.0 0-300.0 0 [facility] Urine RBC NONE SEEN #/HPF 0-2 [facility] Urine Squamous Epithelial Cells RARE #/LPF NONE/RARE [facility] Urine WBC NONE SEEN #/HPF NONE SEEN [facility] Platelet mean volume Auto (B ld) [Entitic vol]on 05-17-2024 Platelet mean volume (Bld) [Entitic vol] 9.1 fL Low 9.5-13.5 [facility] Platelets Auto (Bld) [#/Vol] on 05-17-2024 Platelets (Bld) [#/Vol] 283 10 3/uL 150-450 [facility] RBC Auto (Bld) [#/Vol]on RBC (Bld) [#/Vol] 3.92 10 6/uL Low 4.70-6.10 [facility] Serum or plasma anion gap de terminationon 05-17-2024 Anion gap [Moles/Vol] 15.6 mmol/L [facility] Urine protein/creatinine rat ioon 05-17-2024 Protein/Creatinine (U) [Ratio] 0.37 [facility] Erythrocyte distribution wid th Auto (RBC) [Ratio]on 01-05-2024 Erythrocyte distribution width (RBC) [Ratio] 12.3 % 11.0-15.0 [facility] Estimated glomerular filtrat ion rate (GFR) non- Americanon 01-05-2024 GFR/1.73 sq M.predicted among non-blacks MDRD (S/P/Bld) [Vol rate/Area] 26 mL/min/{1.73_m2} >=60 [facility] Hematocrit Auto (Bld) [Volum e fraction]on 01-05-2024 Hematocrit (Bld) [Volume fraction] 34.2 % 42.0-54.0 [facility] Hemoglobin [Mass/volume] in Bloodon 01-05-2024 Hemoglobin (Bld) [Mass/Vol] 12.3 g/dL 14.0-18. 0 [facility] Laboratory - Chemistry and C hemistry - challengeon 01-05-2024 Albumin [Mass/Vol] 3.9 g/dL 3.4-5.0 [facility] Calcium [Mass/Vol] 8.9 mg/dL 8.5-10.1 [facility] Chloride [Moles/Vol] 91 mmol/L 98-107 [facility] CO2 [Moles/Vol] 24.4 mmol/L 21.0-32.0 [facility] Creatinine [Mass/Vol] 2.46 mg/dL 0.70-1.30 [facility] Ferritin [Mass/Vol] 275.0 ng/mL 26.0-388.0 [facility] GFR/1.73 sq M.predicted MDRD (S/P/Bld) [Vol rate/Area] 32 mL/min/{1.73_m2} >=60 [facility] Glucose [Mass/Vol] 67 mg/dL 74-106 [facility] Magnesium [Mass/Vol] 2.0 mg/dL 1.8-2.4 [facility] Potassium [Moles/Vol] 4.9 mmol/L 3.5-5.1 [facility] Sodium [Moles/Vol] 124 mmol/L 136-145 [facility] Comment on above: RESULTS CALLED TO ANABELL VILLANUEVA CALLED TO []@BY Gil Stevenson MLT at 1636 Urate [Mass/Vol] 6.8 mg/dL 3.5-7.2 [facility] Urea nitrogen [Mass/Vol] 21.0 mg/dL 7.0-18.0 [facility] Urea nitrogen/Creatinine [Mass ratio] 8.5 mg/mg [facility] Bilirubin Ql (U) Negative NEGATIVE [facility] Glucose (U) [Mass/Vol] Negative NEGATIVE [facility] Ketones Ql (U) Negative NEGATIVE [facility] pH (U) 6.0 [pH] 5.0-9.0 [facility] Specific gravity (U) [Rel density] <=1.005 1.005-1.025 [facility] Urobilinogen Qn (U) 1.0 {Edgar'U}/dL 0.2-1.0 [facility] Laboratory - Specimen inform ationon 01-05-2024 Appearance (U) CLEAR CLEAR [facility] Color (U) LT. YELLOW YELLOW [facility] Laboratory - Urinalysison Leukocyte esterase Test strip Ql (U) Negative NEGATIVE [facility] Mucus Ql (Urine sed) NONE SEEN NONE SEEN [facility] Nitrite Ql (U) Negative NEGATIVE [facility] Protein (U) [Mass/Vol] 13.4 mg/dL <=11.9 [facility] Protein Ql (U) Negative NEG/TRACE [facility] Leukocytes [#/volume] correc mitchell for nucleated erythrocytes in Blood by Automated counon 01-05-2024 WBC corrected for nucl RBC Auto (Bld) [#/Vol] 7.8 10 3/uL 4.0-11.0 [facility] MCH Auto (RBC) [Entitic mass ]on 01-05-2024 MCH (RBC) [Entitic mass] 33.1 pg 25.9-34.0 [facility] MCHC Auto (RBC) [Mass/Vol]on 01-05-2024 MCHC (RBC) [Mass/Vol] 36.0 g/dL 29.9-35.2 [facility] MCV Auto (RBC) [Entitic vol] on 01-05-2024 MCV (RBC) [Entitic vol] 91.9 fL 80.0-94.0 [facility] No Panel Informationon 01-04 25-Hydroxy Vitamin D Total 77.4 ng/mL [facility] Comment on above: <20 ng/mL Vit D defi cient20-<30 ng/mL Vit D bqhpcutyrphi46-102 ng/mL Vit D sufficient>100 ng/mL Potential Toxicity Parathyroid Hormone (Intact) 43 pg/mL 15-65 [facility] Comment on above: Performed at: - [address] [id number] Director: Yakov Sheikh PhD, Phone: [phone] Phosphorus Level 3.3 mg/dL 2.6-4.7 [facility] Urine Bacteria NONE SEEN #/HPF NONE SEEN [facility] Urine Occult Blood Negative NEGATIVE [facility] Urine Other Casts NONE SEEN #/LPF NONE SEEN [facility] Urine Other Crystals None Seen #/HPF None Seen [facility] Urine Random Creatinine 52.39 mg/dL 20.0 0-300.0 0 [facility] Urine RBC 0-2 #/HPF 0-2 [facility] Urine Squamous Epithelial Cells NONE SEEN #/LPF NONE/RARE [facility] Urine WBC 0-2 #/HPF NONE SEEN [facility] Platelet mean volume Auto (B ld) [Entitic vol]on 01-05-2024 Platelet mean volume (Bld) [Entitic vol] 9.3 fL 9.5-13.5 [facility] Platelets Auto (Bld) [#/Vol] on 01-05-2024 Platelets (Bld) [#/Vol] 211 10 3/uL 150-450 [facility] RBC Auto (Bld) [#/Vol]on RBC (Bld) [#/Vol] 3.72 10 6/uL 4.70-6.10 [facility] Serum or plasma anion gap de terminationon 01-05-2024 Anion gap [Moles/Vol] 13.5 mmol/L [facility] Urine protein/creatinine rat ioon 01-05-2024 Protein/Creatinine (U) [Ratio] 0.26 [facility] Consent for Procedure/Surger yon 09-15-2023 Consent for Procedure/Surgery [id number]#1 [facility] 0 09-12-2023 Ambulatory [...] Ada Soares MD Where: [facility] [...] disorders of bladder) CT AP wo Con @[facility] 08/04/23 - right urinary bladder [...] urothelial ca. 7. Aspirin long-term use (Z79.82: jail (current) use of aspirin) Aspirin 81mg. [1] Follow-up With When Contact Information Rodger BRIDGES, Ada Morris, URL, [facility] [address] [place] [address] [phone] Additional Instructions: 6 mos (new med) Patient Education Cystoscopy IHumera, personally scribed for Dr. Soares on 09/12/2023 08:09:10. . Documentation recorded by the Humera hickman, accurately reflects the services(s) I performed and decisions made by me. Authenticated by Dr. Soares (more content not included)... Normal [facility] Comment on above: Result Comment: Elec tronically Signed By: Ada Soares MD\.br\Date and Time Signed: 09/12/23 08:18 EST\.br\Electronically Co-Signed By: Humera Jones\.deanna\Date and Time Co-Signed: 09/12/23 08:09 EST Physician Referralon 024 Physician Referral [id number] .00TIFF Normal [facility] Screenson 09-02-2023 Screens [id number]# 1.00TIFF Normal [facility] Screens [id number]# 1.00TIFF [facility] Ambulatory Visit Summaryon 0 08-27-2023 Ambulatory Visit [...] including vitamins, herbs, eye drops, creams, and joqa-akc-abhlyai medicines. ? Any problems you or family [...] tells you to take them. ? Taking ypro-ldg-dijwrkv medicines, vitamins, herbs, and supplements. Tests You may have an exam or testing, such as: ? X-rays of the bladder, urethra, or kidneys. ? CT scan of the abdome (more content not included)... Normal [facility] Patient Educationon 08-27-19 Patient Education [...] Spinach (cooked), rhubarb, beets, sweet potatoes, and Dominican chard. ? Peanuts. ? Potato chips, belgian fries, and baked potatoes with skin on. ? Nuts and nut products. ? Chocolate. ? If you regularly take a diuretic medicine, make sure to eat at least 1 or 2 servings of fruits or vegetables that are high in potassium each day. These include: ? Avocado. ? Banana. ? Wilmot, prune, carrot, or tomato juice. ? Baked [...] fish oil, or vitamin B6. ? Take uhca-skn-mjjryfd and prescription medicines only as told by your health care provider. These include supplements. What foods sh (more content not included)... Normal [facility] Amphetamine Screen Ql (U)Ord ered By: Sixto Dobson on 08-05-2023 Amphetamines Ql (U) Negative Negative [facility] Barbiturates [Presence] in U rine by Screen methodOrdered By: Sixto Dobson on 08-05-2023 Barbiturates Screen Ql (U) Negative Negative [facility] Benzodiazepines Screen Ql (U )Ordered By: Sixto Dobson on 08-05-2023 Benzodiazepines Ql (U) Negative Negative [facility] Benzoylecgonine [Presence] i n Urine by Screen methodOrdered By: Sixto Dobson on 08-05-2023 Benzoylecgonine Screen Ql (U) Negative Negative [facility] Cannabinoids [Presence] in U rine by Screen methodOrdered By: Sixto Dobson on 08-05-2023 Cannabinoids Screen Ql (U) Positive Negative [facility] Comment on above: These are unconfirme d results and should not be used for legal purposes. Drug Cut-Off Concentration: AMPH 1000 ng/mL NORMA 200 ng/mL LUIS 200 ng/mL COCM 300 ng/mL OP 300 ng/mL PCP 25 ng/mL THC 20 ng/mL Opiates [Presence] in Urine by Screen methodOrdered By: Sixto Dobson on 08-05-2023 Opiates Screen Ql (U) Negative Negative [facility] Phencyclidine Screen Ql (U)O rdered By: Sixto Dobson on 08-05-2023 Phencyclidine Ql (U) Negative Negative [facility] CT LUNG CANCER SCREENINGon 0 12-08-2021 [...] by: ADELINA BISHOP Date: 2021-12-08 11:21 Normal [facility] Vital Signs Date Time Vital Sign Value Performing Clinician Facility 10-13-2024 10:56-0400 Body temperature 97.8 [degF] Jeremy Ball DO Work Phone: [facility] 10-13-2024 10:56-0400 Diastolic blood pressure 50 mm[Hg] Jeremy Ball DO Work Phone: [facility] 10-13-2024 10:56-0400 Heart rate 73 /min Jeremy Ball DO Work Phone: [facility] 10-13-2024 10:56-0400 SaO2% (BldA) [Mass fraction] 98 % Jeremy Ball DO Work Phone: [facility] 10-13-2024 10:56-0400 Systolic blood pressure 104 mm[Hg] Jeremy Ball DO Work Phone: [facility] 09-23-2024 10:37-0500 Body height 182.88 cm Jeremy Ball DO Work Phone: [facility] 09-23-2024 10:37-0500 Body mass index (BMI) [Ratio] 21.2 kg/m2 Jeremy Ball DO Work Phone: [facility] 09-23-2024 10:37-0500 Body temperature 97.4 [degF] Jeremy Ball DO Work Phone: [facility] 09-23-2024 10:37-0500 Body weight 70.93 kg Jeremy Ball DO Work Phone: [facility] 09-23-2024 10:37-0500 Diastolic blood pressure 70 mm[Hg] Jeremy Ball DO Work Phone: [facility] 09-23-2024 10:37-0500 Heart rate 98 /min Jeremy Ball DO Work Phone: [facility] 09-23-2024 10:37-0500 Respiratory rate 18 /min Jeremy Ball DO Work Phone: [facility] 09-23-2024 10:37-0500 SaO2% (BldA) [Mass fraction] 100 % Jeremy Ball DO Work Phone: [facility] 09-23-2024 10:37-0500 Systolic blood pressure 114 mm[Hg] Jeremy Ball DO Work Phone: [facility] 09-21-2024 10:40-0500 Body height 182.88 cm Jeremy Ball DO Work Phone: [facility] 09-21-2024 10:40-0500 Body mass index (BMI) [Ratio] 21.4 kg/m2 Jeremy Ball DO Work Phone: [facility] 09-21-2024 10:40-0500 Body weight 71.66 kg Jeremy Ball DO Work Phone: [facility] 09-21-2024 10:40-0500 Diastolic blood pressure 68 mm[Hg] Jeremy Ball DO Work Phone: [facility] 09-21-2024 10:40-0500 Heart rate 90 /min Jeremy Ball DO Work Phone: [facility] 09-21-2024 10:40-0500 Respiratory rate 12 /min Jeremy Ball DO Work Phone: [facility] 09-21-2024 10:40-0500 Systolic blood pressure 107 mm[Hg] Jeremy Ball DO Work Phone: [facility] 09-15-2024 11:57-0500 Body temperature 98.2 [degF] Jeremy Ball DO Work Phone: [facility] 09-15-2024 11:57-0500 Diastolic blood pressure 56 mm[Hg] Jeremy Ball DO Work Phone: [facility] 09-15-2024 11:57-0500 Heart rate 50 /min Jeremy Ball DO Work Phone: [facility] 09-15-2024 11:57-0500 Respiratory rate 18 /min Jeremy Ball DO Work Phone: [facility] 09-15-2024 11:57-0500 SaO2% (BldA) [Mass fraction] 98 % Jeremy Ball DO Work Phone: [facility] 09-15-2024 11:57-0500 Systolic blood pressure 106 mm[Hg] Jeremy Ball DO Work Phone: [facility] 09-14-2024 15:33-0500 Inhaled oxygen flow rate 8 L/min Jeremy Ball DO Work Phone: [facility] 09-14-2024 12:05-0500 Body height 182.88 cm Jeremy Ball DO Work Phone: [facility] 09-14-2024 12:05-0500 Body weight 75.4 kg Jeremy Ball DO Work Phone: [facility] 09-01-2024 10:130500 Body height 182.88 cm Jeremy Ball DO Work Phone: [facility] 09-01-2024 10:13-0500 Body mass index (BMI) [Ratio] 21.7 kg/m2 Jeremy Ball DO Work Phone: [facility] 09-01-2024 10:13-0500 Body temperature 98.4 [degF] Jeremy Ball DO Work Phone: [facility] 09-01-2024 10:13-0500 Body weight 72.57 kg Jeremy Ball DO Work Phone: [facility] 09-01-2024 10:13-0500 Diastolic blood pressure 58 mm[Hg] Jeremy Ball DO Work Phone: [facility] 09-01-2024 10:13-0500 Heart rate 90 /min Jeremy Ball DO Work Phone: [facility] 09-01-2024 10:13-0500 SaO2% (BldA) [Mass fraction] 98 % Jeremy Ball DO Work Phone: [facility] 09-01-2024 10:13-0500 Systolic blood pressure 110 mm[Hg] Jeremy Ball DO Work Phone: [facility] 08-30-2024 12:48-0500 Diastolic blood pressure 76 mm[Hg] Jeremy Ball DO Work Phone: [facility] 08-30-2024 12:48-0500 Heart rate 58 /min Jeremy Ball DO Work Phone: [facility] 08-30-2024 12:48-0500 Respiratory rate 16 /min Jeremy Ball DO Work Phone: [facility] 08-30-2024 12:48-0500 SaO2% (BldA) [Mass fraction] 99 % Jeremy Ball DO Work Phone: [facility] 08-30-2024 12:48-0500 Systolic blood pressure 136 mm[Hg] Jeremy Ball DO Work Phone: [facility] 08-30-2024 12:18-0500 Inhaled oxygen flow rate 3 L/min Jeremy Ball DO Work Phone: [facility] 08-30-2024 09:14-0500 Body height 182.88 cm Jeremy Ball DO Work Phone: [facility] 08-30-2024 09:14-0500 Body weight 72.57 kg Jeremy Ball DO Work Phone: [facility] 08-26-2024 11:11-0500 Body height 182.88 cm [facility] 08-26-2024 11:11-0500 Body mass index (BMI) [Ratio] 21.7 kg/m2 [facility] 08-26-2024 11:11-0500 Body temperature 97.8 [degF] [facility] 08-26-2024 11:11-0500 Body weight 72.57 kg [facility] 08-26-2024 11:11-0500 Diastolic blood pressure 68 mm[Hg] [facility] 08-26-2024 11:11-0500 Heart rate 63 /min [facility] 08-26-2024 11:11-0500 Respiratory rate 16 /min [facility] 08-26-2024 11:11-0500 SaO2% (BldA) [Mass fraction] 97 % [facility] 08-26-2024 11:11-0500 Systolic blood pressure 116 mm[Hg] [facility] 07-12-2024 10:04-0500 Body height 182.88 cm [facility] 07-12-2024 10:04-0500 Body mass index (BMI) [Ratio] 22.1 kg/m2 [facility] 07-12-2024 10:04-0500 Body weight 74.16 kg [facility] 07-12-2024 10:04-0500 Diastolic blood pressure 70 mm[Hg] [facility] 07-12-2024 10:04-0500 Heart rate 84 /min [facility] 07-12-2024 10:04-0500 Respiratory rate 12 /min [facility] 07-12-2024 10:04-0500 Systolic blood pressure 122 mm[Hg] [facility] 05-20-2024 11:09-0400 Body height 182.88 cm [facility] 05-20-2024 11:09-0400 Body mass index (BMI) [Ratio] 21.2 kg/m2 [facility] 05-20-2024 11:09-0400 Body temperature 98.1 [degF] [facility] 05-20-2024 11:09-0400 Body weight 70.98 kg [facility] 05-20-2024 11:09-0400 Diastolic blood pressure 66 mm[Hg] [facility] 05-20-2024 11:09-0400 Heart rate 76 /min [facility] 05-20-2024 11:09-0400 Respiratory rate 18 /min [facility] 05-20-2024 11:09-0400 SaO2% (BldA) [Mass fraction] 99 % [facility] 05-20-2024 11:09-0400 Systolic blood pressure 116 mm[Hg] [facility] 01-15-2024 13:04-0400 Body height 182.88 cm [facility] 01-15-2024 13:04-0400 Body mass index (BMI) [Ratio] 21.5 kg/m2 [facility] 01-15-2024 13:04-0400 Body temperature 98.3 [degF] [facility] 01-15-2024 13:04-0400 Body weight 72.12 kg [facility] 01-15-2024 13:04-0400 Diastolic blood pressure 60 mm[Hg] [facility] 01-15-2024 13:04-0400 Heart rate 78 /min [facility] 01-15-2024 13:04-0400 Respiratory rate 16 /min [facility] 01-15-2024 13:04-0400 SaO2% (BldA) [Mass fraction] 96 % [facility] 01-15-2024 13:04-0400 Systolic blood pressure 132 mm[Hg] [facility] 01-08-2024 10:12-0400 Body height 182.88 cm [facility] 01-08-2024 10:12-0400 Body mass index (BMI) [Ratio] 21.2 kg/m2 [facility] 01-08-2024 10:12-0400 Body weight 70.87 kg [facility] 01-08-2024 10:12-0400 Diastolic blood pressure 69 mm[Hg] [facility] 01-08-2024 10:12-0400 Heart rate 66 /min [facility] 01-08-2024 10:12-0400 Respiratory rate 12 /min [facility] 01-08-2024 10:12-0400 Systolic blood pressure 127 mm[Hg] [facility] 08-05-2023 15:44-0500 Diastolic blood pressure 82 mm[Hg] DO Jeremy Ball Work Phone: [facility] 08-05-2023 15:44-0500 Heart rate 78 /min DO Jeremy Ball Work Phone: [facility] 08-05-2023 15:44-0500 Respiratory rate 16 /min DO Jeremy Ball Work Phone: [facility] 08-05-2023 15:44-0500 SaO2% (BldA) [Mass fraction] 97 % DO Jeremy Ball Work Phone: [facility] 08-05-2023 15:44-0500 Systolic blood pressure 157 mm[Hg] DO Jeremy Ball Work Phone: [facility] 08-05-2023 13:26-0500 Body height 182.88 cm DO Jeremy Ball Work Phone: [facility] 08-05-2023 13:26-0500 Body weight 68.03 kg DO Jeremy Ball Work Phone: [facility] 07-24-2023 12:40-0500 Body height 182.88 cm Young Yahs Other [facility] Other 07-24-2023 12:40-0500 Body mass index (BMI) [Ratio] 21.83 kg/m2 Young Yash Other [facility] Other 07-24-2023 12:40-0500 Body temperature 98.6 [degF] Young Yash Other [facility] Other 07-24-2023 12:40-0500 Body weight 73.03 kg Young Yash Other [facility] Other 07-24-2023 12:40-0500 Diastolic blood pressure 62 mm[Hg] Young Yash Other [facility] Other 07-24-2023 12:40-0500 Respiratory rate 16 /min Young Yash Other [facility] Other 07-24-2023 12:40-0500 SaO2% (BldA) [Mass fraction] 100 % Young Yash Other [facility] Other 07-24-2023 12:40-0500 Systolic blood pressure 130 mm[Hg] Young Yash Other [facility] Other 07-09-2023 10:30-0500 Body height 182.88 cm Jeremy Ball Other [facility] Other 07-09-2023 10:30-0500 Body mass index (BMI) [Ratio] 21.13 kg/m2 Jeremy Ball Other [facility] Other 07-09-2023 10:30-0500 Body weight 70.67 kg Jeremy Ball Other [facility] Other 07-09-2023 10:30-0500 Diastolic blood pressure 69 mm[Hg] Jeremy Ball Other [facility] Other 07-09-2023 10:30-0500 Respiratory rate 12 /min Jeremy Ball Other [facility] Other 07-09-2023 10:30-0500 Systolic blood pressure 131 mm[Hg] Jeremy Ball Other [facility] Other 01-29-2023 13:30-0400 Body height 182.88 cm Jeremy Ball Other [facility] Other 01-29-2023 13:30-0400 Body mass index (BMI) [Ratio] 22.32 kg/m2 Jeremy Ball Other [facility] Other 01-29-2023 13:30-0400 Body weight 74.66 kg Jeremy Ball Other [facility] Other 01-29-2023 13:30-0400 Diastolic blood pressure 66 mm[Hg] Jeremy Ball Other [facility] Other 01-29-2023 13:30-0400 Respiratory rate 12 /min Jeremy Ball Other [facility] Other 01-29-2023 13:30-0400 Systolic blood pressure 119 mm[Hg] Jeremy Lam Other [facility] Other 01-07-2023 11:20-0400 Body height 182.88 cm Young Yash Other [facility] Other 01-07-2023 11:20-0400 Body mass index (BMI) [Ratio] 22.62 kg/m2 Young Yash Other [facility] Other 01-07-2023 11:20-0400 Body temperature 97.7 [degF] Young Yash Other [facility] Other 01-07-2023 11:20-0400 Body weight 75.66 kg Young Yash Other [facility] Other 01-07-2023 11:20-0400 Diastolic blood pressure 64 mm[Hg] Young Yash Other [facility] Other 01-07-2023 11:20-0400 Respiratory rate 18 /min Young Yash Other [facility] Other 01-07-2023 11:20-0400 SaO2% (BldA) [Mass fraction] 99 % Young Yash Other [facility] Other 01-07-2023 11:20-0400 Systolic blood pressure 127 mm[Hg] Young Yash Other [facility] Other 02-21-2022 11:20-0400 Body height 182.88 cm Young Yash Other [facility] Other 02-21-2022 11:20-0400 Body mass index (BMI) [Ratio] 23.95 kg/m2 Young Yash Other [facility] Other 02-21-2022 11:20-0400 Body temperature 96.8 [degF] Young Yash Other [facility] Other 02-21-2022 11:20-0400 Body weight 80.11 kg Young Yash Other [facility] Other 02-21-2022 11:20-0400 Diastolic blood pressure 62 mm[Hg] Young Yash Other [facility] Other 02-21-2022 11:20-0400 Respiratory rate 18 /min Young Yash Other [facility] Other 02-21-2022 11:20-0400 SaO2% (BldA) [Mass fraction] 98 % Young Yash Other [facility] Other 02-21-2022 11:20-0400 Systolic blood pressure 119 mm[Hg] Young Yash Other [facility] Other 11-08-2021 11:00-0400 Body height 182.88 cm Young Yash Other [facility] Other 11-08-2021 11:00-0400 Body mass index (BMI) [Ratio] 24.79 kg/m2 Young Yash Other [facility] Other 11-08-2021 11:00-0400 Body temperature 97.6 [degF] Young Yash Other [facility] Other 11-08-2021 11:00-0400 Body weight 82.92 kg Young Yash Other [facility] Other 11-08-2021 11:00-0400 Diastolic blood pressure 74 mm[Hg] Young Yash Other [facility] Other 11-08-2021 11:00-0400 Respiratory rate 18 /min Young Yash Other [facility] Other 11-08-2021 11:00-0400 SaO2% (BldA) [Mass fraction] 98 % Young Yash Other [facility] Other 11-08-2021 11:00-0400 Systolic blood pressure 139 mm[Hg] Young Yash Other [facility] Other Encounters Encounter Date Encounter Type Care Provider Facility Start: 10-13-2024 End: 10-13-2024 ambulatory Jeremy Ball DO Work Phone: [facility] Work Phone: Start: 10-13-2024 End: 10-13-2024 Patient encounter procedure Jeremy Ball DO Work Phone: [facility] S[facility] Work Phone: Start: 09-23-2024 End: 09-23-2024 ambulatory Jeremy Ball DO Work Phone: [facility] Work Phone: Start: 09-23-2024 End: 09-23-2024 Patient encounter procedure Jeremy Ball DO Work Phone: [facility] Phys[facility] Work Phone: Start: 09-21-2024 End: 09-21-2024 ambulatory Jeremy Ball DO Work Phone: [facility] Work Phone: Start: 09-21-2024 End: 09-21-2024 Patient encounter procedure Jeremy Ball DO Work Phone: [facility] Physician [facility] Work Phone: Start: 09-17-2024 Non-patient / Non-visit Benjam in Ball DO Work Phone: [facility] Physician [facility] Work Phone: Start: 09-16-2024 Non-patient / Non-visit Benjam in Ball DO Work Phone: [facility] Physician [facility] Work Phone: Start: 09-14-2024 Non-patient / Non-visit Benjam in Ball DO Work Phone: [facility] Physician [facility] Work Phone: Start: 09-14-2024 End: 09-15-2024 Evaluation and management of inpatient Jeremy Ball DO Work Phone: [facility] [place] [facility] Work Phone: Start: 09-13-2024 Non-patient / Non-visit Benjam in Ball DO Work Phone: [facility] Physician [facility] Work Phone: Start: 09-03-2024 Non-patient / Non-visit Benjam in Ball DO Work Phone: [facility] Physician [facility] Work Phone: Start: 09-03-2024 End: 09-03-2024 Patient encounter procedure Jeremy Ball DO Work Phone: [facility]-CT Scan [facility] [place] Work Phone: Start: 09-03-2024 End: 09-03-2024 ambulatory Jeremy Ball DO Work Phone: [facility] Work Phone: Start: 09-02-2024 End: 09-02-2024 Patient encounter procedure Jeremy Ball DO Work Phone: [facility] Work Phone: Start: 09-02-2024 End: 09-02-2024 ambulatory Jeremy Ball DO Work Phone: [facility] Work Phone: Start: 09-02-2024 Encounter for preprocedural laboratory examination Onofre Francis [facility] Start: 09-01-2024 End: 09-01-2024 ambulatory Jeremy Ball DO Work Phone: [facility] Work Phone: Start: 09-01-2024 End: 09-01-2024 Patient encounter procedure Jeremy Ball DO Work Phone: [facility] Phys[facility] Work Phone: Start: 08-30-2024 Non-patient / Non-visit Benjam in Ball DO Work Phone: [facility] Physician [facility] Work Phone: Start: 08-30-2024 End: 08-30-2024 Admission to same day surgery center Jeremy Ball DO Work Phone: [facility]-Interventional Radiology Work Phone: Start: 08-30-2024 End: 08-30-2024 ambulatory Jeremy Ball DO Work Phone: [facility] Work Phone: Start: 08-26-2024 End: 08-26-2024 ambulatory [facility] Work Phone: Start: 08-26-2024 End: 08-26-2024 Patient encounter procedure [facility] Work Phone: Start: 07-12-2024 End: 07-12-2024 Patient encounter procedure [facility] Physician [facility] Work Phone: Start: 07-09-2024 Non-patient / Non-visit [facility] Work Phone: Start: 07-07-2024 Non-patient / Non-visit [facility] Phys[facility] Work Phone: Start: 05-20-2024 End: 05-20-2024 ambulatory [facility] Work Phone: Start: 05-20-2024 End: 05-20-2024 Patient encounter procedure [facility] Phys[facility] Work Phone: Start: 05-17-2024 Non-patient / Non-visit [facility] Physician [facility] Work Phone: Start: 03-19-2024 End: 03-19-2024 ambulatory Ada Soares Facility:[facility] Start: 03-19-2024 End: 03-19-2024 Patient encounter procedure Ada Soares [facility] Start: 01-15-2024 End: 01-15-2024 ambulatory [facility] Work Phone: Start: 01-15-2024 End: 01-15-2024 Patient encounter procedure [facility] Phys[facility] Work Phone: Start: 01-08-2024 End: 01-08-2024 ambulatory [facility] Work Phone: Start: 01-08-2024 End: 01-08-2024 Patient encounter procedure [facility] Physician [facility] Work Phone: Start: 01-05-2024 Non-patient / Non-visit [facility] Phys[facility] Work Phone: Start: 10-13-2023 Non-patient / Non-visit [facility] Work Phone: Start: 09-12-2023 End: 09-12-2023 ambulatory Ada Soares Facility:[facility] Start: 09-12-2023 End: 09-12-2023 Patient encounter procedure Ada Soares [facility] Start: 08-27-2023 End: 08-27-2023 ambulatory Ada Soares Facility:[facility] Start: 08-18-2023 End: 08-18-2023 ambulatory Young Yash Other [facility] Other Start: 08-18-2023 Telephone encounter Young Yash [facility] Start: 08-14-2023 ambulatory Ada Lue Facility:[facility] Start: 08-11-2023 ambulatory Ada Lue Facility:[facility] Start: 08-05-2023 Telephone encounter Jeremy Lam FP G [facility] Start: 08-05-2023 End: 08-05-2023 Admission to same day surgery center DO Jeremy Lam Work Phone: [facility] Work Phone: Start: 08-05-2023 End: 08-05-2023 ambulatory DO Jeremy Lam Work Phone: [facility] Work Phone: Start: 08-04-2023 End: 08-04-2023 ambulatory Young Yash Other [facility] Other Start: 08-04-2023 Telephone encounter Young Yash [facility] Start: 07-24-2023 End: 07-24-2023 ambulatory Young Yash Other [facility] Other Start: 07-24-2023 Office outpatient vi sit 25 minutes [facility] Start: 07-17-2023 End: 07-17-2023 ambulatory Sixto Dobson Other [facility] Other Start: 07-17-2023 Telephone encounter Sixto Pascal Administrative Support Assistant Start: 07-09-2023 End: 07-09-2023 ambulatory Jeremy Lam Other [facility] Other Start: 07-09-2023 Patient encounter procedure Jeremy Lam [facility] Start: 07-07-2023 End: 07-07-2023 ambulatory Jeremy Lam Other [facility] Other Start: 07-07-2023 Telephone encounter Jeremy Lam FP [facility] Start: 04-08-2023 End: 04-08-2023 ambulatory Jeremy Lam Other [facility] Other Start: 04-08-2023 Telephone encounter Jeremy Lam FP [facility] Start: 02-06-2023 End: 02-06-2023 ambulatory Jeremy Lam Other [facility] Other Start: 02-06-2023 Telephone encounter Jeremy Lam FP [facility] Start: 01-29-2023 End: 01-29-2023 ambulatory Jeremy Lam Other [facility] Other Start: 01-29-2023 Office outpatient vi sit 15 minutes Jeremy Lam [facility] Start: 01-29-2023 Telephone encounter Jeremy Lam FP [facility] Start: 01-14-2023 End: 01-14-2023 ambulatory Jeremy Lam Other [facility] Other Start: 01-14-2023 Telephone encounter Jeremy Lam FP [facility] Start: 01-08-2023 End: 01-08-2023 ambulatory Young Yash Other [facility] Other Start: 01-08-2023 Telephone encounter Young Yash [facility] Start: 01-07-2023 End: 01-07-2023 ambulatory Young Yash Other [facility] Other Start: 01-07-2023 Office outpatient vi sit 25 minutes Young Yash [facility] Start: 01-07-2023 Telephone encounter Young Yash [facility] Start: 02-21-2022 End: 02-21-2022 ambulatory Young Yash Other [facility] Other Start: 02-21-2022 Office outpatient vi sit 25 minutes Young Yash [facility] Start: 02-21-2022 Telephone encounter Young Yash [facility] Start: 12-08-2021 End: 12-09-[address] JEREMY LAM Facility: Start: 11-29-2021 Adult health examination Brad min Maddison Other [facility] Other Start: 11-08-2021 End: 11-08-2021 ambulatory Young Yash Other [facility] Other Start: 11-08-2021 Office outpatient vi sit [...] Date Care Activity Detail Author Start: 09-15-2024 [facility] Start: 09-14-2024 Cerebral Embolic Filtration, Extracorporeal Flow Reversal Circuit from Right Common Carotid Artery, Percutaneous Approach, [employer] 6 Cerebral Embolic Filtration, Extracorporeal Flow Reversal Circuit from Right Common Carotid Artery, Percutaneous Approach, [employer] 6 [facility] Start: 09-14-2024 Dilation of Right Internal Carotid Artery with Intraluminal Device, Percutaneous Approach Dilation of Right Internal Carotid Artery with Intraluminal Device, Percutaneous Approach [facility] Start: 09-14-2024 Hospital admission [facility] Start: 08-30-2024 [facility] Start: 08-05-[address] [facility] [address] Neck WO contrast [facility] CT Unspecified body region WO contrast [facility] Patient Education [facility] Work Phone: Patient referral [facility] Work Phone: Renal function 1999 panel - Serum or Plasma [facility] Renal function 1999 panel - Serum or Plasma [facility] Renal function 1999 panel - Serum or Plasma [facility] [place].doppler Carotid arteries - bilateral [facility] Immunizations Immunization Date Immunization Notes Care Provider Shaniqua blackman 12-04-2020 COVID-19 Vaccine Mod poly - Documentation Purposes Only Jeremy Lam Other [facility] Comment on above: Result Comment: 2023: [id number] 11-06-2020 COVID-19 Vaccine Mod poly - Documentation Purposes Only Jeremy Lam Other [facility] Comment on above: Result Comment: 2023: [id number] 06-15-2020 zoster vaccine recombinant Jeremy Lam Other [facility] 04-12-2020 zoster vaccine recombinant Jeremy Lam Other [facility] Payers Date Payer Category Payer Self-pay [id number] 2024 Unknown [id number] 2023 Medicare [id number] 2.1 [id number] 2023 Private Health Insurance [id number] 1959 Private Health Insurance [id number] 1957 Unknown [id number] 2.16.84 [id number] 1957 Unknown [id number] 2.16.8 [id number] 1957 Unknown [id number] 2.16.8 [id number] 1957 Unknown [id number] 2.16.8 [id number] 1957 Unknown [id number] 2.16.8 [id number] 1957 Unknown [id number] 2.16.8 [id number] Private Health Insurance [id number] Unknown [id number] 2.16.8 [id number] Unknown [id number] 2.16.8 [id number] Unknown [id number] 2.16.8 [id number] Unknown [id number] 2.16.8 [id number] Social History Date Type Detail Facility Unknown if ever smoked [facility] Other Start: 07-28-2067 Sex Assigned At F [facility] Start: 08-05-2023 End: 09-23-2024 Tobacco smoking status NHIS Smoker (finding) [facility] Start: 1955 Sex Assigned At Male F [facility] Start: 08-27-2023 Tobacco smoking status Heavy t obacco smoker (finding) [facility] Tobacco smoking status Never [facility] Start: 08-26-2024 End: 10-13-2024 Sex Male (finding) [facility] Medical Equipment Procedure Code Equipment Code Equipment Original Text Equipment Identifier Dates Transcarotid artery revascularization (TCAR) Bare-metal carotid artery stent ()[id number] [facility] Start: 09-14-2024 Goals Date Patient Goal Desired Activity /State Functional Status Date Assessment Result Facility 09-15-2024 Functional status Patient at Baseline [facility] Work Phone: 09-12-2023 Functional Status N/A [facility] Mental Status Date Assessment Result Facility 09-15-2024 Cognitive function Cognitive Sta tus Patient at Baseline [facility] Work Phone: Clinical Notes 11-08-2021 to 09-14-2024 Note Date & Type Note Facility 09-14-2024 Procedure note [facility] enter 09-03-2024 Radiology Diagnostic study note [facility] [place] [address] CT Scan Report Signed Patient: Kingston Guevara MR#: [id number] : 1955 Acct:[id number] Age/Sex: 69 / M ADM Date: 5 Loc: CT Room: Type: [facility] Attending Dr: Shirley Collins RODEO CLOWN-C Copies to: Shirley Collins APRN~ Ordering Provider: Shirley Collins APRN Date of Service: 09/03/24 CT/CT head/brain wo con: I65.21 - Occlusion and stenosis of right carotid artery ([id number]) CT/CT soft tissue neck wo con: I65.21 [...] MD 09/03/24 1325 Signed By: 09/03/24 1335 [facility] Work Phone: 08-30-2024 Procedure note [facility] enter 08-26-2024 Evaluation note Diagnosis Onset [...] August 10:36am Hyperlipidemia deleted August 292024 10:36am [facility] Work Phone: 1(264) 226-527112-16-2024 Evaluation note* Diagnosis Onset Date Resolution Status Admit Date Anemia acute July 12, 2024 9:56am Carotid stenosis, right acute D ecember 2023 9:56am Chronic bronchitis acute Decemb er 2023 9:56am Chronic kidney disease acute De cem2023 9:56am Hypercholesterolemia acute Dece mber 2023 9:56am Hypertension acute June 9:56am Hyponatremia acute June 9:56am Nicotine addiction acute [facility] er 2023 9:56am Screening PSA (prostate spec ific antigen) acute July 12 9:56am Medicare annual wellness vis it, initial noneactive July 12 9:56am [facility] Work Phone: 1(405) 797-187712-16-2024 Evaluation note* Diagnosis Onset Date Resolution Status [...] carotid arteries acute Janua ry 2024 10:43am [facility] Work Phone: 1(449) 717-813012-16-2024 Evaluation note* Diagnosis Onset Date Resolution Status [...] bilateral carotid arteries acute Febru 2024 9:52am [facility] Work Phone: 1(727) 476-778712-16-2024 Evaluation note* Diagnosis Onset Date Resolution Status [...] bilateral carotid arteries acute Febru carley2024 11:34am [facility] Work Phone: 1(276) 236-998612-16-2024 Evaluation note* Diagnosis Onset Date Resolution Status [...] Nicotine addiction acute ua ry 2024 10:25am [facility] Work Phone: 1(864) 703-251312-16-2024 Evaluation note* Diagnosis Onset Date Resolution Status [...] 2024 10:36am Hyperlipidemia deleted August 292024 10:36am [facility] Work Phone: 1(100) 335-793002-16-2024 Hospital Discharge instructions Patient Education 09/12/2023 08:06:25 [...] including vitamins, herbs, eye drops, creams, and vlse-jxt-hjxxeva medicines. Any problems you or family members [...] provider tells you to take them. Taking jxri-wlw-jtkcbcp medicines, vitamins, herbs, and supplements. Tests You [...] Follow these instructions at home: Medicines Take vzbr-iot-ktzksol and prescription medicines only as told by [...] provider. Document Revised: 03/27/2022 Document Reviewed: 02/23/2021 [employer] Patient Education 2022 [employer]. Follow Up Care 08/27/2023 10:15:46 With:Rodger BRIDGES, Ada Morris URL, URO Address: [address] [place] [phone] When: Unknown Comments:6 mos (new med) [facility] 02-16-2024 NoteUrology Cystoscopy Cystoscopy is [...] including vitamins, herbs, eye drops, creams, and yuoj-uyz-zggvham medicines. ? Any problems you or family [...] tells you to take them. ? Taking aqpb-gre-uodizhi medicines, vitamins, herbs, and supplements. Tests You [...] these instructions at home: Medicines ? Take elsy-jsk-iedhudx and prescription medicines only as told by [...] or the department th (more content not included)...[facility] 08-27-2023 NoteChief Complaint Referral *Bladder Wall Thickening [facility] Staff Bombsight Specialist referral for bladder wall thickening by Dr [...] & nocturia. Denies leakin (more content not included)...[facility]Result Comment: Electronically Signed By: Ada Soares MD\.br\Date and Time Signed: 08/27/23 09:44EST\.br\Electronically Co-Signed By: Dalia Campos\.br\Date and Time Co-Signed: 08/27/23 09:16 [id number] [facility]* Encounter Date Diagnosis Assessment Notes Treatment Notes Treatment Clinical Notes Jul, Bladder wall thickening (ICD-10 - N32.89) Denies dysuria, polyuria or hematuria. Due to findings, referral for cystoscopy has been initiated. [facility] Other 01-08-2024 Evaluation note* Encounter Date Diagnosis Assessment Notes Treatment Notes Treatment Clinical Notes Jul, Cigarette nicotine dependence without complication (ICD-10 - F17.210) LDCT: 11/2021, 07/2023 [facility] Other 12-28-2023 Evaluation note* Encounter Date Diagnosis [...] I explained to him potential need of DENIER CONTROL OPERATOR in the near future. I discussed with him different option of DENIER CONTROL OPERATOR including transplant, PD and HD. He is [...] and folate level. No need for LUPE. [facility] Other 12-13-2023 Evaluation note* Encounter Date Diagnosis [...] (ICD-10 - Z12.5) Yearly GARRISON and PSA [facility] Other [id number] Evaluation note* Encounter Date Diagnosis Assessment Notes [...] adequate fluid balance and to avoid dehydration. [facility] Other 07-13-2023 Evaluation note* Encounter Date Diagnosis Assessment Notes Treatment Notes Treatment Clinical Notes Jan, Elevated cholesterol (ICD-10 - E78.00) [facility] Other 07-05-2023 Evaluation note* Encounter Date Diagnosis [...] to respiratory infections, vascular disease and cancers. 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 I discussed with him different option of DENIER CONTROL OPERATOR including transplant, PD and HD. He is [...] potassium diet and provide information about it [facility] Other 06-13-2023 Evaluation note* Encounter Date Diagnosis [...] I explained to him potential need of DENIER CONTROL OPERATOR in the near future. I discussed with him different option of DENIER CONTROL OPERATOR including transplant, PD and HD. He is [...] potassium diet and provide information about it [facility] Other 07-28-2022 Evaluation note* Encounter Date Diagnosis [...] I explained to him potential need of DENIER CONTROL OPERATOR in the near future. I discussed with him different option of DENIER CONTROL OPERATOR including transplant, PD and HD. He is [...] potassium diet and provide information about it [facility] Other 04-14-2022 Evaluation note* Encounter Date Diagnosis [...] I explained to him potential need of DENIER CONTROL OPERATOR in the near future. I discussed with him different option of DENIER CONTROL OPERATOR including transplant, PD and HD. He is [...] potassium diet and provide information about it [facility] Other Evaluation + Plan note Future Appointments Appointment Date:03/19/2024 10:00:00 AM Scheduled Provider:Ada Soares MD Location:[facility] Appointment Type:URO Office Visit [facility] Evaluebjdk noteNo InformationNort Done In :60 Seconds Other evaluopxxc noteNo assessment information available [facility] Work Phone: Evaluvxwfl note* Diagnosis Onset Date Resolution Status Anemia acute Carotid stenosis, right acut e Chronic bronchitis acute Chronic kidney disease acute GERD (gastroesophageal reflux disease) acute H/O: gout acute Hypercholesterolemia acute Hypertension acute Hyponatremia acute Nicotine addiction acute [facility] Work Phone: Evaluation note* Diagnosis Onset Date Resolution Status Anemia acute Carotid stenosis, right acut e Chronic bronchitis acute Chronic kidney disease acute GERD (gastroesophageal reflux disease) acute Hypercholesterolemia acute Hypertension acute Hyponatremia acute Nicotine addiction acute Anemia of renal disease acut e Atrophic kidney acute CKD (chronic kidney disease) stage 4, GFR 15-29 ml/min acute Hyperlipidemia acute [id number] acute Hyponatremia acute Secondary hyperparathyroidism acute [facility] Work Phone: Evaluation note* Diagnosis Onset Date Resolution Status Anemia of renal disease acut e Atrophic kidney acute CKD (chronic kidney disease) stage 4, GFR 15-29 ml/min acute Hyperlipidemia acute [id number] acute Hyponatremia acute Secondary hyperparathyroidism acute [facility] Work Phone: History and physical note Author Sixto Dobson [facility] August 05, 2023 3:00pm Note Date/Time August 05, 2023 3: 00pm [facility] [address] [place] [address] Gastroenterology H&P Signed Patient: Kingston Guevara MR#: [id number] : 1955 Acct:[id number] Age/Sex: 68 / M Adm Date: 4 Loc: Room: Type: [facility] Attending Dr: Sixto Dobson MD [...] signed by Sixto Dobson MD> 08/05/23 1500 [facility] Work Phone: Hisdupc general Narrative - Reported* Type Description Date [...] Surgical History COLONOSCOPY Hospitalization History SEE ABOVE [facility] Other Hisdcbp general Narrative - Reported* Type Description Date [...] History COLONOSCOPY 2019 Hospitalization History SEE ABOVE [facility] Other Hisxiaz general Narrative - Reported* Type Description Date [...] History COLONOSCOPY 2019 Hospitalization History SEE ABOVE [facility] Other History general Narrative - Reported* Type [...] History EGD 07/2023 Hospitalization History SEE ABOVE [facility] Other Hospital course Narrative No data available for this section [facility] Discharge instructions Additional Instructions [...] problems. -Follow up with PCP. -Office number [phone].[facility] Work Phone: Hospital Discharge instructions No data available for this section [facility] Progress note No data available for this section [facility] Reason for referral (narrative)* Reason *Waiting for appt Referral for EGD Diagnosis 1 Weight loss, uninten tional (R63.4) Diagnosis 2 Early satiety (R68.8 1) Diagnosis 3 Anemia, unspecified type (D64.9) Referral Organization [facility] Referring Provider First Name Jeremy Referring Provider Last Name Maddison Referring Provider Specialty Internal Me dicine Referred Organization [facility] Gastroenterolo gy Referred Provider Tanvir Mc Referred Address [address],[place] [address] ,[place], [place],[address] Referred Provider Specialty Gastroentero logy Referral Priority [...] 07/10/2023 09:14:25 AM >received today, referral faxed [facility] Other Summary Purpose Family History Relationship Condition [...] disease) stage 4, GFR 15-29 ml/min Hyperlipidemia [id number] Hyponatremia Secondary hyperparathyroidism Chief Complaint RENAL 4 MONTH F/U Reason for Visit Anemia of renal dise ase Atrophic kidney CKD (chronic kidney disease) stage 4, GFR 15-29 ml/min Hyperlipidemia [id number] Hyponatremia Secondary hyperparathyroidism Chief Complaint Admit Date [...] To go over angiogram; Carotid Stenosis F [facility] 2024 9:52am Chief Complaint Admit Date CC Adult Risk Stratification July 092023 1:26pm wellness July 12, 2024 9:56am Ref from Dr. 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 September 14, 2024 11:34am Chief [...] Amb Documentation September 16, 2024 11:20am [facility] September 21, 2024 10:25am Reason for [...] Amb Documentation September 16, 2024 11:20am IP [facility] September 21, 2024 10:25am RENAL 4 [...] Amb Documentation September 16, 2024 11:20am IP [facility] September 21, 2024 10:25am RENAL 4 [...] Bladder wall thicken ing (N32.89) Referral Organization [facility]ita Referring Provider First Name Jeremy Referring Provider Last Name Maddison Referring Provider Specialty Internal [place] dicine Referred Organization [facility] Referred Address [address],[place], [place],[address] Referred Provider Specialty Urology Referral Priority Routine [...] DATE CREATED AUTHOR AUTHOR'S ORGANIZ ATION 03/22/2024 [facility] DATE CREATED AUTHOR AUTHOR'S ORGANIZ ATION 09/28/[address] [facility] REASON FOR VISIT (unrecogniz [...] 03, 2024 End: September 03, 2024 DALTON Letser Attending Provider Active Start: September 03, 2024 [...] BE BASED ON THE PRIMARY CLINICAL RECORDS. [facility] provides no warranty or guarantee of the accuracy or completeness of information in this document.
[2025-01-18] MEDS: ATORVASTATIN CALCIUM 20 MG TABLET PO (09:27)
[2025-01-18] MEDS: CLOPIDOGREL BISULFATE 75 MG TABLET PO (09:27)
[2025-01-18] MEDS: AMLODIPINE BESYLATE 5 MG TABLET PO (09:27)
[2025-01-18] MEDS: PANTOPRAZOLE SODIUM 40 MG VIAL IV (09:27)
[2025-01-18] MEDS: THIAMINE MONONITRATE (VIT B1) 100 MG TABLET PO (09:27)
[2025-01-18] MEDS: MULTIVITAMIN TABLET 1 TAB PO (09:27)
[2025-01-18] MEDS: FOLIC ACID 1 MG TABLET PO (09:27)
--- NOTE | 2025-01-18 10:10 | CM.NOTE ---
Rounds made with Dr. Quintero, discussed plan of care with pt and am lab work. Dr. Quintero will call Dr. Berrios for further recommendations.
--- NOTE | 2025-01-18 11:11 | SWNOTE1 ---
SW and I met with pt in room. SW discussed pt's daily drinking. SW did ask if pt is aware of any resources for alcohol use and pt did say yes. SW asked pt if he would like any other resources and at this time pt is aware and SW advised pt to call hospital if he would like any resources. Pt does admit to drinking daily but he does not feel like he is going through withdrawal at this time. SW to follow as needed.
--- NOTE | 2025-01-18 11:36 | PM.IMPN1 ---
Progress Note: A&P Assessment and Plan (1) Acute hyponatremia: (2) Hyperlipidemia: (3) Hypothyroid: (4) Kidney disease, chronic, stage IV (GFR 15-29 ml/min): (5) SIADH (syndrome of inappropriate ADH production): Plan Euvolemic, asymptomatic acute on chronic hyponatremia Multifactorial: SIADH, and likely Polydipsia Ruling out Malignancy -Admit pt to medical floor with telemetry under hospitalist service -Spoke to nephrology, Dr. Berrios who is aware of this pt, and recommends to keep him here at [place], they will try to get urea from [facility] tomorrow, I updated Dr. Berrios, and he recommends sodium chloride tablet 1000 mg tid first dose now, I put that order in -Stop IV fluids, and start pt on fluid restriction 1.2 liters -Start Urea 30 mg PO daily, unfortunately we do not have it in house (confirmed with pharmacy) -Hold ACEI -BMP q4-6 hours with neuro checks q2 hours -Obtain TSH, uric acid,urine Sodium, urine creatinine and UA -Discussed the plan with the pt, he would like to stay here as well -DVT PPx with SCDs -IV pantoprazole 40 mg daily for GI PPx -Also ordered CT chest without contrast as per nephrology recs -Discussed the plan in details with the pt, answered all his questions 01/18/2025 patient showed improvement with sodium chloride tablets, his sodium today is 128. He however he is acidotic compared to yesterday on the chemistry. His renal function janel stable with a creatinine around 2. I discussed the plan of management with Dr. Berrios, patient's outpatient emergency department nurse. He recommended to switch the sodium chloride to sodium bicarb 650 mg p.o. twice daily. As well as continue fluid restriction. Patient can be discharged tomorrow if the sodium continues to improve. We do have the urea packet here in house however we will hold off on it since the patient showing improvement with the sodium bicarb tablets. Discussed the plan with the patient. Also CT chest without contrast did not show an new malignancy. Discussed that with the patient 2. I counseled him again on smoking cessation. Will watch for another day and may discharge him tomorrow if the sodium is improving or stable. He will need close follow-up with his emergency department nurse. Understand the plan. Internal Medicine - PN: Subj Subjective Interval history: Patient seen and examined at bedside. He is asymptomatic today. Denies any cough or fever or chills or nausea or vomiting or diarrhea. His labs were reviewed and I reviewed the labs as well with the patient's outpatient emergency department nurse. I discussed with him the plan of management told him that I will discharge him tomorrow if the sodium continues to improve. He was in agreement with this plan. Exam Narrative Exam Narrative: General: The patient appears well and in no apparent distress. Patient is resting comfortably on cart. Patient is not toxic, lethargic, or listless. He is pleasant and cooperative. Does have some temporal wasting Skin: Warm, dry, no pallor noted. There is no rash noted. No petechiae, purpura. Head: Normocephalic, atraumatic Eye: Normal conjunctiva, no drainage, EOMI. PERRL Ears, Nose, Mouth, and Throat: oral mucosa is moist. Nares patent. Mouth without vesicles. Cardiovascular: Regular Rate and Rhythm, no murmur, gallop, rub Respiratory: Patient is in no distress, no accessory muscle use, lungs are clear to auscultation, no wheezing, rales or rhonchi Back: non-tender, no CVA tenderness bilaterally to percussion. No CT LS midline pain GI: no tenderness to palpation, no masses appreciated. No rebound, guarding, or rigidity noted. No distention Musculoskeletal: Patient has full range of motion of all of the extremities, no motor, sensory, or focal neurological deficits Neurological: A&O x4, normal speech Constitutional Vital Signs, click to edit/add: Last Vital Signs Temp 97.8 F 01/18/25 08:32 Pulse 77 01/18/25 09:48 Resp 18 01/18/25 08:32 BP 149/72 H 01/18/25 08:32 Pulse Ox 98 01/18/25 08:32 O2 Del Method Room Air 01/18/25 08:32 Internal Medicine - PN: Obj Da Labs Labs: Laboratory Results - last 24 hr 01/17/25 01/17/25 01/18/25 13:46 17:55 05:01 WBC 7.5 8.1 RBC 4.63 L 4.16 L Hgb 15.1 13.8 L Hct 41.8 L 37.7 L MCV 90.3 90.6 MCH 32.6 33.2 MCHC 36.1 H 36.6 H RDW 12.2 12.4 Plt Count 257 238 MPV 8.9 L 9.1 L Neut % (Auto) 70.7 68.0 Lymph % (Auto) 14.2 L 14.8 L [place] % (Auto) 7.9 8.1 Eos % (Auto) 5.5 7.8 H Baso % (Auto) 1.3 1.1 Neut # (Auto) 5.3 5.5 Lymph # (Auto) 1.1 L 1.2 [place] # (Auto) 0.6 0.7 Eos # (Auto) 0.4 0.6 Baso # (Auto) 0.1 0.1 Abs Immat Gran (auto) 0.03 0.02 Imm/Tot Granulo (auto) 0.4 0.2 PT 10.4 INR 0.98 Sodium 124 L* 128 L Potassium 5.1 4.4 Chloride 89 L 96 L Carbon Dioxide 27.2 20.7 L Anion Gap 12.9 15.7 BUN 19.0 H 20.0 H Creatinine 2.23 H 2.06 H Est GFR ( Amer) 36 L 39 L Est GFR (Non-Af Amer) 30 L 32 L BUN/Creatinine Ratio 8.5 9.7 Glucose 95 80 Uric Acid 6.2 Calcium 9.2 9.0 Magnesium 2.3 Total Bilirubin 0.5 0.5 AST 26 20 ALT 22 20 Alkaline Phosphatase 84 78 Total Protein 7.7 6.6 Albumin 3.9 3.1 L Globulin 3.8 3.5 Albumin/Globulin Ratio 1.0 0.9 TSH 1.921 Urine Color Lt. yellow Urine Clarity Clear Urine pH 6.5 Ur Specific [place] <=1.005 A Urine Protein Negative Urine Glucose (UA) Negative Urine Ketones Negative Urine Occult Blood Negative Urine Nitrite Negative Urine Bilirubin Negative Urine Urobilinogen 0.2 Ur Leukocyte Esterase Negative Urine RBC None seen Urine WBC 0-2 A Ur Squamous Epith Cells None seen Urine Crystals None seen Urine Bacteria None seen Urine Casts None seen Urine Mucus None seen Ur Culture Indicated? No Ur Random Creatinine 15.48 L Ur Random Sodium 30
--- NOTE | 2025-01-18 12:07 | CM.NOTE ---
Important Message From Medicare discussed with pt, pt verbalizes understanding and signs paper. Original given to pt and copy placed in pt's chart.
[2025-01-18] MEDS: NICOTINE 14 MG PATCH.TD24 TD (17:42)
[2025-01-18] MEDS: SODIUM BICARBONATE 325 MG TABLET 650 MG PO (21:33)
[2025-01-18] MEDS: HEPARIN SODIUM (PORCINE) 5,000 UNIT/ML VIAL 5000 UNIT SUBQ (21:34)
[2025-01-19] VITALS (8 sets, daily range): BP systolic 149–155; BP diastolic 73–80; PULSE 61–74; TEMP 36.4–36.6; O2SAT 96–98
[2025-01-19] MEDS: LEVOTHYROXINE SODIUM 25 MCG TABLET PO (06:19)
[2025-01-19 07:50] LABS: Basophils Absolute Auto 0.1 10^3/uL (0.0-0.1); Basophils Percent Auto 1.7 % (0.2-2.0); Eosinophils Absolute Auto 0.5 10^3/uL (0.0-0.7); Eosinophils Percent Auto 7.8 % (0.9-7.0); Hematocrit 40.3 % (42.0-54.0); Hemoglobin 14.6 g/dL (14.0-18.0); Immature Granulocytes Abs Auto 0.01 10^3/uL (0.00-0.03); Immature Granulocytes Pct Auto 0.2 % (0.0-0.5); Lymphocytes Absolute Auto 1.3 10^3/uL (1.2-3.8); Lymphocytes Percent Auto 19.9 % (20.5-60.0); Mean Corpuscular HGB Conc 36.2 g/dL (29.9-35.2); Mean Corpuscular Hemoglobin 33.2 pg (25.9-34.0); Mean Corpuscular Volume 91.6 fL (80.0-94.0); Mean Platelet Volume 8.9 fL (9.5-13.5); Monocytes Absolute Auto 0.6 10^3/uL (0.3-0.8); Monocytes Percent Auto 8.7 % (1.7-12.0); Neutrophils Percent Auto 61.7 % (43.0-75.0); Platelet Count 233 10^3/uL (150-450); Red Cell Distribution Width 12.7 % (11.0-15.0); White Blood Count 6.5 10^3/uL (4.0-11.0)
[2025-01-19 07:59] LABS: Anion Gap 12.4; BUN Creatinine Ratio 10.2; Calcium 8.8 mg/dL (8.5-10.1); Carbon Dioxide 24.9 mmol/L (21.0-32.0); Chloride 99 mmol/L (98-107); Estimated GFR (African America 35 (>=60 mL/min/1.73m^2); Estimated GFR (Non-African Ame 29 (>=60 mL/min/1.73m^2); Glucose 89 mg/dL (74-106); Potassium 4.3 mmol/L (3.5-5.1); Sodium 132 mmol/L (136-145)
[2025-01-19] MEDS: PANTOPRAZOLE SODIUM 40 MG VIAL IV (08:41)
[2025-01-19] MEDS: HEPARIN SODIUM (PORCINE) 5,000 UNIT/ML VIAL 5000 UNIT SUBQ (08:41)
[2025-01-19] MEDS: SODIUM BICARBONATE 325 MG TABLET 650 MG PO (08:42)
[2025-01-19] MEDS: AMLODIPINE BESYLATE 5 MG TABLET PO (08:42)
[2025-01-19] MEDS: FOLIC ACID 1 MG TABLET PO (08:42)
[2025-01-19] MEDS: CLOPIDOGREL BISULFATE 75 MG TABLET PO (08:42)
[2025-01-19] MEDS: ATORVASTATIN CALCIUM 20 MG TABLET PO (08:42)
[2025-01-19] MEDS: MULTIVITAMIN TABLET 1 TAB PO (08:42)
[2025-01-19] MEDS: THIAMINE MONONITRATE (VIT B1) 100 MG TABLET PO (08:42)
--- NOTE | 2025-01-19 12:03 | CM.NOTE ---
Rounds made with Dr. Quintero. Plan for discharge today. Follow up with Nephrology-appointment January 27, 2025. Labs to be completed a few days before appointment(labs slip given). Follow up with PCP-Dr. Lam in one -two weeks. Mr. Guevara verbalizes understanding.
--- NOTE | 2025-01-19 12:39 | PM.DS1 ---
DS: Providers Provider Date of admission: 01/17/25 18:04 Primary care physician: Jeremy Lam DO Anticipated date of discharge: 01/19/25 DS: Diagnosis Discharge Diagnosis (1) Acute hyponatremia: (2) Hyperlipidemia: (3) Hypothyroid: (4) Kidney disease, chronic, stage IV (GFR 15-29 ml/min): (5) SIADH (syndrome of inappropriate ADH production): Plan As above DS: Summary Hospital Course Hospital Course: This is a 69 y.o male with past medical hx of CKD stage 4, hypertension, gout, hyponatremia, hypothyroidism, carotid artery stenosis s/p right TCAR procedure in July 2024, dyslipidemia, alcoholism and active smoker is presented for management of the CKD. Here for abnormal labs, mainly hyponatremia of 123, was sent by in by his carton repairer for further workup and management., He follows up with Dr. Berrios, patient denies any abdominal pain, nausea, vomiting, diarrhea, constipation, fatigue, dizziness, or confusion or passing out or presyncope. He states that he drinks alcohol 3-4 beers every day last drink was yesterday. He also has been drinking a lot of water because of the heat. He also reports weight loss as well as cough. No fever no chills no chest pain. I spoke with Dr. Webber his carton repairer today and the suggested admitting him to our hospital at [place] and that there is no need for him to go to [facility]. He denies to me NSAID intake. I reviewed the medications from his list as well. Labs in the ED included unremarkable CBC, showed BUN of 19 and creatinine of 2.23 which is similar to his baseline values. He did have sodium of 124 but back to his lab review from before he did have values like 124 as well. Patient does have a history of chronic hyponatremia. He will be admitted under hospitalist service for further workup and management. In the ED, patient states 1 L of NS and he was receiving his second liter which we stopped. Euvolemic, asymptomatic acute on chronic hyponatremia Multifactorial: SIADH, and likely Polydipsia Ruling out Malignancy -Admit pt to medical floor with telemetry under hospitalist service -Spoke to nephrology, Dr. Berrios who is aware of this pt, and recommends to keep him here at [place], they will try to get urea from [facility] tomorrow, I updated Dr. Berrios, and he recommends sodium chloride tablet 1000 mg tid first dose now, I put that order in -Stop IV fluids, and start pt on fluid restriction 1.2 liters -Start Urea 30 mg PO daily, unfortunately we do not have it in house (confirmed with pharmacy) -Hold ACEI -BMP q4-6 hours with neuro checks q2 hours -Obtain TSH, uric acid,urine Sodium, urine creatinine and UA -Discussed the plan with the pt, he would like to stay here as well -DVT PPx with SCDs -IV pantoprazole 40 mg daily for GI PPx -Also ordered CT chest without contrast as per nephrology recs -Discussed the plan in details with the pt, answered all his questions 01/18/2025 patient showed improvement with sodium chloride tablets, his sodium today is 128. He however he is acidotic compared to yesterday on the chemistry. His renal function janel stable with a creatinine around 2. I discussed the plan of management with Dr. Berrios, patient's outpatient carton repairer. He recommended to switch the sodium chloride to sodium bicarb 650 mg p.o. twice daily. As well as continue fluid restriction. Patient can be discharged tomorrow if the sodium continues to improve. We do have the urea packet here in house however we will hold off on it since the patient showing improvement with the sodium bicarb tablets. Discussed the plan with the patient. Also CT chest without contrast did not show an new malignancy. Discussed that with the patient 2. I counseled him again on smoking cessation. Will watch for another day and may discharge him tomorrow if the sodium is improving or stable. He will need close follow-up with his carton repairer. 01/19/2025 Today: I spoke Dr. Webber, patient's sodium level is 132 today back to his normal baseline. He recommended the patient to be discharged today with follow-up with him in a week and he will need a CMP 2 days prior to that which I ordered already. Also recommended to counseled the patient on fluid restriction between 40 and 50 ounce a day not more than that. I discussed that with the patient details. I also discussed with him smoking cessation which he says that he is getting ready to and he will follow-up with his PCP regarding the options. We gave him a pamphlet regarding the options. He will not be discharged on sodium tablets as his acidosis is resolved. Patient to follow-up with his Nephrology: He understands and agrees with this plan of management Status at Discharge Overall status at discharge: patient is back to baseline Time Spent with Patient Time attestation: Total time spent providing and/or coordinating discharge services: Exam Constitutional Vital Signs, click to edit/add: Last Vital Signs Temp 97.9 F 01/19/25 07:36 Pulse 74 01/19/25 12:00 Resp 16 01/19/25 07:36 BP 155/80 H 01/19/25 07:36 Pulse Ox 98 01/19/25 07:36 O2 Del Method Room Air 01/19/25 07:36 DS: Data Data Completed and Pending Labs on day of discharge: Labs from last 24 hours 01/19/25 07:42 WBC 6.5 RBC 4.40 L Hgb 14.6 Hct 40.3 L MCV 91.6 MCH 33.2 MCHC 36.2 H RDW 12.7 Plt Count 233 MPV 8.9 L Neut % (Auto) 61.7 Lymph % (Auto) 19.9 L [place] % (Auto) 8.7 Eos % (Auto) 7.8 H Baso % (Auto) 1.7 Neut # (Auto) 4.0 Lymph # (Auto) 1.3 [place] # (Auto) 0.6 Eos # (Auto) 0.5 Baso # (Auto) 0.1 Abs Immat Gran (auto) 0.01 Imm/Tot Granulo (auto) 0.2 Sodium 132 L Potassium 4.3 Chloride 99 Carbon Dioxide 24.9 Anion Gap 12.4 BUN 23.0 H Creatinine 2.25 H Est GFR ( Amer) 35 L Est GFR (Non-Af Amer) 29 L BUN/Creatinine Ratio 10.2 Glucose 89 Calcium 8.8 Discharge Plan Discharge Disposition: Home, Self-Care Condition: Good Discharge Medications: Continued amlodipine 5 mg tablet 5 mg PO DAILY clopidogrel 75 mg tablet 75 mg PO DAILY levothyroxine 25 mcg tablet 25 mcg PO DAILY aspirin 81 mg capsule 81 mg PO DAILY atorvastatin 40 mg tablet 40 mg PO .QHS Held benazepril 40 mg tablet 20 mg PO DAILY Hold Instructions: Until you see Yash Smith in 1 week Activity: increase activity as tolerated Print Language: Albanian Patient Instructions: Chronic Kidney Disease (DC), Hyponatremia (DC) Forms: Portal Instructions Follow Up Appointments: Dr. Lam's office will call to schedule a follow up appt. [phone] Keep appt. scheduled with Dr. Berrios for 01/27 Please make sure to have labs drawn before appt
--- NOTE | 2025-01-20 13:38 | CM.DCFOLLOWU ---
Person spoke with: Kingston How are you feeling? Much better How is your pain? No pain Did you understand your discharge instructions? Yes Do you have any questions about your discharge instructions? No Were you given any prescriptions at discharge? No Were you able to get your prescriptions filled? N/A Do you understand how to take your medications as ordered? Yes Do you have any questions about your follow up appointment and do you plan to keep your follow up appointment? Dr. Lam's office called me today with appointment, I also already have appt scheduled with Yash. Is there anything else that you would like to discuss? No Questions/Comments/Concerns/Other:
== END 2025-01-19 13:40 | disposition home or self-care (01) | DRG 644 ==
LOC: ER 17:05 → MS 01-18 07:02
PROVIDERS: Admitting Provider Student in an Organized Health Care Education/Training Program; Emergency Provider Emergency Medicine; PCP Internal Medicine; Visit Provider Student in an Organized Health Care Education/Training Program
DX: E22.2 Syndrome of inappropriate secretion of antidiuretic hormone (principal); N18.4 Chronic kidney disease, stage 4 (severe); I12.9 Hypertensive chronic kidney disease with stage 1 through stage 4 chronic kidney disease, or unspecified chronic kidney disease; D63.1 Anemia in chronic kidney disease; F10.20 Alcohol dependence, uncomplicated; Z79.82 Long term (current) use of aspirin; Z79.890 Hormone replacement therapy; Z79.899 Other long term (current) drug therapy; E78.5 Hyperlipidemia, unspecified; E03.9 Hypothyroidism, unspecified; Z90.49 Acquired absence of other specified parts of digestive tract; Z98.62 Peripheral vascular angioplasty status; M10.9 Gout, unspecified; R63.1 Polydipsia; F17.210 Nicotine dependence, cigarettes, uncomplicated
CPT/HCPCS: 36415; 71250; 80048; 80053; 80069; 81001; 82306; 82570; 82728; 83540; 83550; 83735; 83970; 84156; 84295; 84300; 84443; 84550; 85025; 85027; 85610; 93005; 99285; 99406; J1644

== ENCOUNTER 2025-01-24 15:48 | Outpatient (OUT) | payer MEDICARE, SELFPAY ==
--- OUTSIDE RECORDS SUMMARY | 2025-01-20 20:45 | XMS_ITS | Continuity of Care Document ---
Author Organization [facility] Address [address] [place] [address] Phone Care Team Providers Care Photo Print Specialist Name Role Phone Jeremy Lma DO Primary Care Provider Jeremy Lam DO Attending Provider [phone] Cindy Berrios Attending Provider [phone] Kingston Aiken DO Attending Provider Hilary Quintero MD Attending Provider Brianda Chin CMA Attending Provider UnavailShirley Lam BARKER OPERATOR-C Attending Provider Care Teams Patient Care Team Team Status: Active Member Role Status Dates Jeremy Lam DO Primary Care Provider Active Visit Care Team Team Status: Active Member Role Status Dates Jeremy Lam DO Primary Care Provider Active Start: January 03, 2025 Jeremy Lam DO Attending Provider Active Sta rt: January 03, 2025 Visit Care Team Team Status: Inactive Member Role Status Dates Jeremy Lam DO Primary Care Provider Active Start: January 04, 2025 End: January 04, 2025 Jeremy Lam DO Attending Provider Active Sta rt: January 04, 2025 End: January 04, 2025 Visit Care Team Team Status: Active Member Role Status Dates Jeremy Lam DO Primary Care Provider Active Start: January 14, 2025 Young Berrios MD Attending Provider Active Start : January 14, 2025 Visit Care Team Team Status: Active Member Role Status Dates Jeremy Lam DO Primary Care Provider Active Start: January 17, 2025 Kingston Aiken DO Attending Provider Active Start : January 17, 2025 Visit Care Team Team Status: Active Member Role Status Dates Jeremy Lam DO Primary Care Provider Active Start: January 18, 2025 Hilary Quintero MD Attending Provider Active Star t: January 18, 2025 Patient Care Team Team Status: Active Member Role Status Dates Jeremy Lam DO Primary Care Provider Active Start: January 19, 2025 Hilary Quintero MD Attending Provider Active Star t: January 19, 2025 Patient Care Team Team Status: Active Member Role Status Dates Jeremy Lam DO Primary Care Provider Active Start: January 20, 2025 Brianda Chin CMA Attending Provider Active Start: January 20, 2025 Patient Care Team Team Status: Inactive Member Role Status Dates Jeremy Lam DO Primary Care Provider Active Start: January 20, 2025 End: January 20, 2025 DALTON Lester Attending Provider Active Start: January 20, 2025 End: January 20, 2025 Chief Complaint and Reason for Visit Chief Complaint Admit Date 6 month f/u January 04, 2025 11:2 6am Amb Documentation January 20, 2025 9:15 am I65.23 January 20, 2025 10:2 7am Reason for Visit Admit Date Carotid stenosis, right January 04, 2025 11:26am Chronic bronchitis January 04, 2025 11:2 6am Chronic kidney disease January 04, 2025 1 1:26am Hypercholesterolemia January 04, 2025 11: 26am Hypertension January 04, 2025 11:2 6am Hyponatremia January 04, 2025 11:2 6am Hypothyroid January 04, 2025 11:2 6am Nicotine addiction January 04, 2025 11:2 6am Allergies, Adverse Reactions, Alerts Allergen Type Severity Reaction Last Updated Verified Status No Known Allergies Allergy Unknown January 04, 2025 11:37 am Yes Active Social History Smoking Status Status Start Date End Date Date of Observa tion Smokes tobacco daily (finding) July 28, 2067 September 23, 2024 10:43am Observation Status Observation Response Date of Response Legal Sex Male (finding) Sex Assigned At Male July Family History Relationship Condition Age at Onset Recorded Date/T miroslava father Unknown Malignant neoplasm Unknown Transient ischemic attack Unknown mother Unknown Problems Active Problems Medical Problem Onset Date Status Comments Nicotine addiction Unknown Active LDCT: no suspicious nodules - 07/2023, 07/2024 Screening PSA (prostate spec ific antigen) Unknown Active Current every day smoker Unknown Active Secondary hyperparathyroidism Unknown Active Gout Unknown Active Atrophic kidney Unknown Active CKD (chronic kidney disease) stage 4, GFR 15-29 ml/min Unknown Active Hypertensive chronic kidney disease with stage 1 through stage 4 chronic kidney disease, or unspecified chronic kidney disease Unknown Active Hypercholesterolemia Unknown Active Hyponatremia Unknown Active Hypothyroid Unknown Active Chronic kidney disease Unknown Active Benign prostatic hyperplasia with lower urinary tract symptoms Unknown Active GERD (gastroesophageal reflux disease) Unknown Ac tive Anemia of renal disease Unknown Active Carotid stenosis, bilateral Unknown Active Carotid stenosis, right Unknown Active US: >70% DAMARIS (93% right bulb) w/ <50% LICA - 07/2024,s/p TCAR - 08/2024, Chronic bronchitis Unknown Active Hypertension Unknown Active Inactive/Resolved Problems Medical Problem Onset Date Status Comments Occlusion and stenosis of bilateral carotid arteries Unknown Resolved Occult blood positive stool Unknown Resolved Problem List clean-up per request of Phys. EHR Cmte Medications Medication Status Dose Units Route Directions Qty Days St art Date Stop Date End Date Instructions Adherence Atorvastati n 20 mg tablet Discont inued 20 MG PO Daily 90 March 01, 2024 9:52am Augus t 2023 11:05 am Atorvastati n 20 mg tablet Discont inued 0 .ROUTE .COMPLEX March 01, 2024 11:05a m 2024 12:42 pm TAKE 1 TABLET BY MOUTH DAILY Amlodipine 5 mg tablet Discont inued 5 MG PO Daily 90 2023 4:44pm Octob er 2023 1:56p m Labetalol 100 mg tablet Discont inued 100 MG PO Twice daily 180 2023 4:45pm Febru 2024 12:09 pm Amlodipine 5 mg tablet Discont inued 5 MG PO Daily 90 Octobe r 2023 1:56pm u 2024 5:09p m Levothyroxi ne 25 mcg tablet Discont inued 25 MCG PO Daily 2024 1:00am Febru 2024 3:15p m Levothyroxi ne 25 mcg tablet Active 25 MCG PO Daily 2024 3:15pm Unknown Benazepril 40 mg tablet Active 20 MG PO Every morning October 11, 2024 4:44pm Unknown Atorvastati n 20 mg Tablet Discont inued 20 MG PO Daily February 02, 2019 12:00a m Augus 2023 9:52a m Amlodipine 5 mg Tablet Discont inued 5 MG PO Daily February 02, 2019 12:00a m [facility] 2023 4:45p m Aspirin 81 mg Tablet,Chew able Active 81 MG PO Every morning February 02, 2019 12:00a m Unknown Benazepril 40 mg Tablet Discont inued 20 MG PO Daily February 02, 2019 12:00a m October 14, 2023 4:02p m Ergocalcife rol (Vitamin D2) 1,250 mcg (50,000 unit) capsule Discont inued 1250 MCG PO every week 2023 1:00am January 15, 2024 1:06p m Labetalol 100 mg Tablet Discont inued 100 MG PO Twice daily 2023 1:00am [facility] 2023 4:45p m Ergocalcife rol (Vitamin D2) 1,250 mcg (50,000 unit) capsule Discont inued 1250 MCG PO .every other week January 15, 2024 1:06pm u 2024 10:09 am Atorvastati n 40 mg tablet Active 40 MG PO Every morning 2024 1:00am Unknown Famotidine (Pepcid) 40 mg tablet Active 40 MG PO Every morning 2024 1:00am Take 1 tablet orally once a day Unknown Clopidogrel 75 mg tablet Discont inued 75 MG PO Every morning 2024 1:00am January 04, 2025 11:52 am Amlodipine 5 mg tablet Active 5 MG PO Every morning 2024 1:00am Unknown Benazepril 40 mg tablet Discont inued 20 MG PO Every morning 2024 1:00am October 11, 2024 4:45p m Benazepril 40 mg tablet Discont inued 20 MG PO Daily 45 90 October 14, 2023 4:02pm Dece 2023 11:18 am Benazepril 40 mg tablet Discont inued 20 MG PO Daily 45 90 Decemb er 2023 11:18a m Febru [email or web address] 5:09p m Ferrous Sulfate 325 mg (65 mg iron) tablet Active 325 MG PO Every 48 hours 45 ua 2024 1:00am Unknown Famotidine (Pepcid) 40 mg tablet Discont inued 40 MG PO Daily 30 30 2023 1:00am Febru [email or web address] 5:09p m Take 1 tablet orally once a day Tamsulosin 0.4 mg capsule Active 0.4 MG PO Every morning January 08, 2024 12:00a m Unknown Atorvastati n 40 mg tablet Discont inued 40 MG PO Daily at bedtime 2024 12:40p m Febru [email or web address] 5:09p m Clopidogrel 75 mg tablet Discont inued 75 MG PO Daily 90 2024 1:00am 2024 5:09p m Immunizations Immunization Event Date Not Given Reason Dose Number Mobile Device Engineer Lot Number Vaccine Information Statement (VIS) Detail Administration Location COVID-19 mRNA-1273 (Moderna) November 06, 2020 COVID-19 mRNA-1273 (Moderna) December 04, 2020 Zoster Vaccine Recombinant, Adjuvanted April 12, 2020 Zoster Vaccine Recombinant, Adjuvanted June 15, 2020 Medical Equipment Device Date Implanted Device Details Bare-metal carotid artery stent September 14, 2024 LINDY: [id number] Issuing Agency: [id number] Device Id: [id number] Expiration Date: 2026-11-24 Lot Number: [id number] Procedures Procedure Date Performed Status US carotid doppler BI January 20, 2025 10:35am ac tive Relevant Diagnostic Tests and/or Laboratory Data Laboratory Results Test Collection Date/Time Result Date/Time Result Interpretation Reference Range Result Comment Performing Site Free Thyroxin e January 03, 2025 10:43am January 03, 2025 10:43am 0.93 ng/dL 0.76-1.46 Thyroid Stimulat ing Hormone 3rd Gen January 03, 2025 10:43am January 03, 2025 10:43am 2.077 u[iU]/mL 0.358-3.74 0 Urine Random Creatini ne January 14, 2025 11:49am January 14, 2025 11:49am 42.63 mg/dL 20.00-300. 00 Urine Other Casts January 14, 2025 11:49am NONE SEEN #/LPF NONE SEEN Hematocr it January 14, 2025 11:57am January 14, 2025 11:57am 39.2 % Below low normal 42.0-54.0 Iron Saturati on January 14, 2025 11:57am January 14, 2025 11:57am 21.3 % 25-Olga xy Vitamin D Total January 14, 2025 11:57am January 14, 2025 11:57am 65.4 ng/mL <20 ng/mL Vit D [id number] -<30 ng/mL Vit D insufficien t30-100 ng/mL Vit D sufficient> 100 ng/mL Potential Toxicity Ferritin January 14, 2025 11:57am January 14, 2025 11:57am 181.0 ng/mL 26.0-388.0 Magnesiu m Level January 14, 2025 11:57am January 14, 2025 11:57am 1.9 mg/dL 1.8-2.4 Uric Acid January 14, 2025 11:57am January 14, 2025 11:57am 5.8 mg/dL 3.5-7.2 Anion Gap January 14, 2025 11:57am January 14, 2025 11:57am 14.0 Parathyr oid Hormone (Intact) January 14, 2025 11:57am January 14, 2025 11:57am 51 pg/mL 15-65 Performed at: [facility] [id number] Director: Yakov Sheikh PhD, Phone: [phone] Magnesiu m Level January 17, 2025 1:46pm January 17, 2025 1:46pm 2.3 mg/dL 1.8-2.4 Thyroid Stimulat ing Hormone 3rd Gen January 17, 2025 1:46pm January 17, 2025 1:46pm 1.921 u[iU]/mL 0.358-3.74 0 Uric Acid January 17, 2025 1:46pm January 17, 2025 1:46pm 6.2 mg/dL 3.5-7.2 Prothrom b Time Internat ional Ratio January 17, 2025 1:46pm January 17, 2025 1:46pm 0.98 DESIRED INR:2.0-3.0 CONDITIONS NOT LISTED BELOW2.5-3. 5 FOR PROSTHETIC HEART VALVE REPLACEMENT 2.5-3.5 RECURRENT THROMBOSIS Anion Gap January 17, 2025 1:46pm January 17, 2025 1:46pm 12.9 Basophil s # (Auto) January 17, 2025 1:46pm January 17, 2025 1:46pm 0.1 10 3/uL 0.0-0.1 Urine Culture Reflexed January 17, 2025 5:55pm NO Urine Random Creatini ne January 17, 2025 5:55pm January 17, 2025 5:55pm 15.48 mg/dL Below low normal 20.00-300. 00 Urine Random Sodium January 17, 2025 5:55pm January 17, 2025 5:55pm 30 mmol/L 30-90 Anion Gap January 18, 2025 5:01am January 18, 2025 5:01am 15.7 Basophil s # (Auto) January 18, 2025 5:01am January 18, 2025 5:01am 0.1 10 3/uL 0.0-0.1 Anion Gap January 19, 2025 7:42am January 19, 2025 7:42am 12.4 Basophil s # (Auto) January 19, 2025 7:42am January 19, 2025 7:42am 0.1 10 3/uL 0.0-0.1 Urine Protein/ Creatini ne Ratio January 14, 2025 11:49am January 14, 2025 11:49am 0.41 Urine Other Crystals January 14, 2025 11:49am None Seen #/HPF None Seen Hemoglob in January 14, 2025 11:57am January 14, 2025 11:57am 14.3 g/dL 14.0-18.0 Iron Level January 14, 2025 11:57am January 14, 2025 11:57am 51.0 ug/dL Below low normal 65.0-175.0 Albumin January 14, 2025 11:57am January 14, 2025 11:57am 3.7 g/dL 3.4-5.0 Prothrom bin Time January 17, 2025 1:46pm January 17, 2025 1:46pm 10.4 sec 9.0-11.6 Albumin/ Globulin Ratio January 17, 2025 1:46pm January 17, 2025 1:46pm 1.0 Basophil s (%) (Auto) January 17, 2025 1:46pm January 17, 2025 1:46pm 1.3 % 0.2-2.0 Urine Other Casts January 17, 2025 5:55pm NONE SEEN #/LPF NONE SEEN Albumin/ Globulin Ratio January 18, 2025 5:01am January 18, 2025 5:01am 0.9 Basophil s (%) (Auto) January 18, 2025 5:01am January 18, 2025 5:01am 1.1 % 0.2-2.0 BUN/Crea tinine Ratio January 19, 2025 7:42am January 19, 2025 7:42am 10.2 Basophil s (%) (Auto) January 19, 2025 7:42am January 19, 2025 7:42am 1.7 % 0.2-2.0 Urine Random Total Protein January 14, 2025 11:49am January 14, 2025 11:49am 17.3 mg/dL Above high normal <=11.9 Urine Bacteria January 14, 2025 11:49am NONE SEEN #/HPF NONE SEEN Mean Corpuscu lar Hemoglob in January 14, 2025 11:57am January 14, 2025 11:57am 33.4 pg 25.9-34.0 Total Iron Binding Capacity January 14, 2025 11:57am January 14, 2025 11:57am 240.0 ug/dL Below low normal 250.0-450. 0 BUN/Crea tinine Ratio January 14, 2025 11:57am January 14, 2025 11:57am 8.2 Albumin January 17, 2025 1:46pm January 17, 2025 1:46pm 3.9 g/dL 3.4-5.0 Eosinoph ils # (Auto) January 17, 2025 1:46pm January 17, 2025 1:46pm 0.4 10 3/uL 0.0-0.7 Urine Other Crystals January 17, 2025 5:55pm None Seen #/HPF None Seen Albumin January 18, 2025 5:01am January 18, 2025 5:01am 3.1 g/dL Below low normal 3.4-5.0 Eosinoph ils # (Auto) January 18, 2025 5:01am January 18, 2025 5:01am 0.6 10 3/uL 0.0-0.7 Blood Urea Nitrogen January 19, 2025 7:42am January 19, 2025 7:42am 23.0 mg/dL Above high normal 7.0-18.0 Eosinoph ils # (Auto) January 19, 2025 7:42am January 19, 2025 7:42am 0.5 10 3/uL 0.0-0.7 Urine Bilirubi n January 14, 2025 11:49am NEGATIVE NEGATIVE Mean Corpuscu lar Hemoglob in Concent January 14, 2025 11:57am January 14, 2025 11:57am 36.5 g/dL Above high normal 29.9-35.2 Blood Urea Nitrogen January 14, 2025 11:57am January 14, 2025 11:57am 18.0 mg/dL 7.0-18.0 Alkaline Phosphat ase January 17, 2025 1:46pm January 17, 2025 1:46pm 84 U/L 46-116 Eosinoph ils (%) (Auto) January 17, 2025 1:46pm January 17, 2025 1:46pm 5.5 % 0.9-7.0 Urine Bacteria January 17, 2025 5:55pm NONE SEEN #/HPF NONE SEEN Alkaline Phosphat ase January 18, 2025 5:01am January 18, 2025 5:01am 78 U/L 46-116 Eosinoph ils (%) (Auto) January 18, 2025 5:01am January 18, 2025 5:01am 7.8 % Above high normal 0.9-7.0 Calcium Level January 19, 2025 7:42am January 19, 2025 7:42am 8.8 mg/dL 8.5-10.1 Eosinoph ils (%) (Auto) January 19, 2025 7:42am January 19, 2025 7:42am 7.8 % Above high normal 0.9-7.0 Urine Occult Blood January 14, 2025 11:49am NEGATIVE NEGATIVE Mean Corpuscu lar Volume January 14, 2025 11:57am January 14, 2025 11:57am 91.6 fL 80.0-94.0 Calcium Level January 14, 2025 11:57am January 14, 2025 11:57am 8.8 mg/dL 8.5-10.1 Alanine Aminotra nsferase (ALT/SGP T) January 17, 2025 1:46pm January 17, 2025 1:46pm 22 U/L 16-63 Hematocr it January 17, 2025 1:46pm January 17, 2025 1:46pm 41.8 % Below low normal 42.0-54.0 Urine Bilirubi n January 17, 2025 5:55pm NEGATIVE NEGATIVE Alanine Aminotra nsferase (ALT/SGP T) January 18, 2025 5:01am January 18, 2025 5:01am 20 U/L 16-63 Hematocr it January 18, 2025 5:01am January 18, 2025 5:01am 37.7 % Below low normal 42.0-54.0 Chloride Level January 19, 2025 7:42am January 19, 2025 7:42am 99 mmol/L 98-107 Hematocr it January 19, 2025 7:42am January 19, 2025 7:42am 40.3 % Below low normal 42.0-54.0 Urine Appearan ce January 14, 2025 11:49am CLEAR CLEAR Mean Platelet Volume January 14, 2025 11:57am January 14, 2025 11:57am 8.8 fL Below low normal 9.5-13.5 Chloride Level January 14, 2025 11:57am January 14, 2025 11:57am 90 mmol/L Below low normal 98-107 Aspartat e Amino Transf (AST/SGO T) January 17, 2025 1:46pm January 17, 2025 1:46pm 26 U/L 15-37 Hemoglob in January 17, 2025 1:46pm January 17, 2025 1:46pm 15.1 g/dL 14.0-18.0 Urine Occult Blood January 17, 2025 5:55pm NEGATIVE NEGATIVE Aspartat e Amino Transf (AST/SGO T) January 18, 2025 5:01am January 18, 2025 5:01am 20 U/L 15-37 Hemoglob in January 18, 2025 5:01am January 18, 2025 5:01am 13.8 g/dL Below low normal 14.0-18.0 Carbon Dioxide Level January 19, 2025 7:42am January 19, 2025 7:42am 24.9 mmol/L 21.0-32.0 Hemoglob in January 19, 2025 7:42am January 19, 2025 7:42am 14.6 g/dL 14.0-18.0 Urine Color January 14, 2025 11:49am LT. YELLOW YELLOW Platelet Count January 14, 2025 11:57am January 14, 2025 11:57am 249 10 3/uL 150-450 Carbon Dioxide Level January 14, 2025 11:57am January 14, 2025 11:57am 25.0 mmol/L 21.0-32.0 BUN/Crea tinine Ratio January 17, 2025 1:46pm January 17, 2025 1:46pm 8.5 Immature Granuloc yte # (Auto) January 17, 2025 1:46pm January 17, 2025 1:46pm 0.03 10 3/uL 0.00-0.03 Urine Appearan ce January 17, 2025 5:55pm CLEAR CLEAR BUN/Crea tinine Ratio January 18, 2025 5:01am January 18, 2025 5:01am 9.7 Immature Granuloc yte # (Auto) January 18, 2025 5:01am January 18, 2025 5:01am 0.02 10 3/uL 0.00-0.03 Creatini ne January 19, 2025 7:42am January 19, 2025 7:42am 2.25 mg/dL Above high normal 0.70-1.30 Immature Granuloc yte # (Auto) January 19, 2025 7:42am January 19, 2025 7:42am 0.01 10 3/uL 0.00-0.03 Urine Glucose (UA) January 14, 2025 11:49am NEGATIVE mg/dL NEGATIVE Red Blood Count January 14, 2025 11:57am January 14, 2025 11:57am 4.28 10 6/uL Below low normal 4.70-6.10 Creatini ne January 14, 2025 11:57am January 14, 2025 11:57am 2.19 mg/dL Above high normal 0.70-1.30 Blood Urea Nitrogen January 17, 2025 1:46pm January 17, 2025 1:46pm 19.0 mg/dL Above high normal 7.0-18.0 Immature Granuloc yte % (Auto) January 17, 2025 1:46pm January 17, 2025 1:46pm 0.4 % 0.0-0.5 Urine Color January 17, 2025 5:55pm LT. YELLOW YELLOW Blood Urea Nitrogen January 18, 2025 5:01am January 18, 2025 5:01am 20.0 mg/dL Above high normal 7.0-18.0 Immature Granuloc yte % (Auto) January 18, 2025 5:01am January 18, 2025 5:01am 0.2 % 0.0-0.5 Estimate d GFR ( ) January 19, 2025 7:42am January 19, 2025 7:42am 35 Below low normal >=60 mL/min/1.7 3m 2 Immature Granuloc yte % (Auto) January 19, 2025 7:42am January 19, 2025 7:42am 0.2 % 0.0-0.5 Urine Ketones January 14, 2025 11:49am NEGATIVE mg/dL NEGATIVE Red Cell Distribu tion Width January 14, 2025 11:57am January 14, 2025 11:57am 12.6 % 11.0-15.0 Estimate d GFR ( ) January 14, 2025 11:57am January 14, 2025 11:57am 37 Below low normal >=60 mL/min/1.7 3m 2 Calcium Level January 17, 2025 1:46pm January 17, 2025 1:46pm 9.2 mg/dL 8.5-10.1 Lymphocy zulma # (Auto) January 17, 2025 1:46pm January 17, 2025 1:46pm 1.1 10 3/uL Below low normal 1.2-3.8 Urine Glucose (UA) January 17, 2025 5:55pm NEGATIVE mg/dL NEGATIVE Calcium Level January 18, 2025 5:01am January 18, 2025 5:01am 9.0 mg/dL 8.5-10.1 Lymphocy zulma # (Auto) January 18, 2025 5:01am January 18, 2025 5:01am 1.2 10 3/uL 1.2-3.8 Estimate d GFR (Non-Afr ican Brazilian January 19, 2025 7:42am January 19, 2025 7:42am 29 Below low normal >=60 mL/min/1.7 3m 2 Lymphocy zulma # (Auto) January 19, 2025 7:42am January 19, 2025 7:42am 1.3 10 3/uL 1.2-3.8 Urine Leukocyt e Esterase January 14, 2025 11:49am NEGATIVE NEGATIVE Correcte d White Blood Count January 14, 2025 11:57am January 14, 2025 11:57am 9.1 10 3/uL 4.0-11.0 Estimate d GFR (Non-Afr ican Brazilian January 14, 2025 11:57am January 14, 2025 11:57am 30 Below low normal >=60 mL/min/1.7 3m 2 Chloride Level January 17, 2025 1:46pm January 17, 2025 1:46pm 89 mmol/L Below low normal 98-107 Lymphocy zulma (%) (Auto) January 17, 2025 1:46pm January 17, 2025 1:46pm 14.2 % Below low normal 20.5-60.0 Urine Ketones January 17, 2025 5:55pm NEGATIVE mg/dL NEGATIVE Chloride Level January 18, 2025 5:01am January 18, 2025 5:01am 96 mmol/L Below low normal 98-107 Lymphocy zulma (%) (Auto) January 18, 2025 5:01am January 18, 2025 5:01am 14.8 % Below low normal 20.5-60.0 Glucose Level January 19, 2025 7:42am January 19, 2025 7:42am 89 mg/dL 74-106 Lymphocy zulma (%) (Auto) January 19, 2025 7:42am January 19, 2025 7:42am 19.9 % Below low normal 20.5-60.0 Urine Mucus January 14, 2025 11:49am NONE SEEN NONE SEEN Glucose Level January 14, 2025 11:57am January 14, 2025 11:57am 85 mg/dL 74-106 Carbon Dioxide Level January 17, 2025 1:46pm January 17, 2025 1:46pm 27.2 mmol/L 21.0-32.0 Mean Corpuscu lar Hemoglob in January 17, 2025 1:46pm January 17, 2025 1:46pm 32.6 pg 25.9-34.0 Urine Leukocyt e Esterase January 17, 2025 5:55pm NEGATIVE NEGATIVE Carbon Dioxide Level January 18, 2025 5:01am January 18, 2025 5:01am 20.7 mmol/L Below low normal 21.0-32.0 Mean Corpuscu lar Hemoglob in January 18, 2025 5:01am January 18, 2025 5:01am 33.2 pg 25.9-34.0 Potassiu m Level January 19, 2025 7:42am January 19, 2025 7:42am 4.3 mmol/L 3.5-5.1 Mean Corpuscu lar Hemoglob in January 19, 2025 7:42am January 19, 2025 7:42am 33.2 pg 25.9-34.0 Urine Nitrite January 14, 2025 11:49am NEGATIVE NEGATIVE Potassiu m Level January 14, 2025 11:57am January 14, 2025 11:57am 5.0 mmol/L 3.5-5.1 Creatini ne January 17, 2025 1:46pm January 17, 2025 1:46pm 2.23 mg/dL Above high normal 0.70-1.30 Mean Corpuscu lar Hemoglob in [facility] January 17, 2025 1:46pm January 17, 2025 1:46pm 36.1 g/dL Above high normal 29.9-35.2 Urine Mucus January 17, 2025 5:55pm NONE SEEN NONE SEEN Creatini ne January 18, 2025 5:01am January 18, 2025 5:01am 2.06 mg/dL Above high normal 0.70-1.30 Mean Corpuscu lar Hemoglob in [facility] January 18, 2025 5:01am January 18, 2025 5:01am 36.6 g/dL Above high normal 29.9-35.2 Sodium Level January 19, 2025 7:42am January 19, 2025 7:42am 132 mmol/L Below low normal 136-145 Mean Corpuscu lar Hemoglob in Concent January 19, 2025 7:42am January 19, 2025 7:42am 36.2 g/dL Above high normal 29.9-35.2 Urine pH January 14, 2025 11:49am 6.5 5.0-9.0 Sodium Level January 14, 2025 11:57am January 14, 2025 11:57am 124 mmol/L Below lower panic limits 136-[address] GARCIA Estimate d GFR ( ) January 17, 2025 1:46pm January 17, 2025 1:46pm 36 Below low normal >=60 mL/min/1.7 3m 2 Mean Corpuscu lar Volume January 17, 2025 1:46pm January 17, 2025 1:46pm 90.3 fL 80.0-94.0 Urine Nitrite January 17, 2025 5:55pm NEGATIVE NEGATIVE Estimate d GFR ( ) January 18, 2025 5:01am January 18, 2025 5:01am 39 Below low normal >=60 mL/min/1.7 3m 2 Mean Corpuscu lar Volume January 18, 2025 5:01am January 18, 2025 5:01am 90.6 fL 80.0-94.0 Mean Corpuscu lar Volume January 19, 2025 7:42am January 19, 2025 7:42am 91.6 fL 80.0-94.0 Urine Protein January 14, 2025 11:49am NEGATIVE mg/dL NEG/TRACE Phosphor us Level January 14, 2025 11:57am January 14, 2025 11:57am 3.8 mg/dL 2.6-4.7 Estimate d GFR (Non-Afr ican Brazilian January 17, 2025 1:46pm January 17, 2025 1:46pm 30 Below low normal >=60 mL/min/1.7 3m 2 Monocyte s # (Auto) January 17, 2025 1:46pm January 17, 2025 1:46pm 0.6 10 3/uL 0.3-0.8 Urine pH January 17, 2025 5:55pm 6.5 5.0-9.0 Estimate d GFR (Non-Afr ican Brazilian January 18, 2025 5:01am January 18, 2025 5:01am 32 Below low normal >=60 mL/min/1.7 3m 2 Monocyte s # (Auto) January 18, 2025 5:01am January 18, 2025 5:01am 0.7 10 3/uL 0.3-0.8 Monocyte s # (Auto) January 19, 2025 7:42am January 19, 2025 7:42am 0.6 10 3/uL 0.3-0.8 Urine RBC January 14, 2025 11:49am NONE SEEN #/HPF 0-2 Globulin January 17, 2025 1:46pm January 17, 2025 1:46pm 3.8 g/dL Monocyte s (%) (Auto) January 17, 2025 1:46pm January 17, 2025 1:46pm 7.9 % 1.7-12.0 Urine Protein January 17, 2025 5:55pm NEGATIVE mg/dL NEG/TRACE Globulin January 18, 2025 5:01am January 18, 2025 5:01am 3.5 g/dL Monocyte s (%) (Auto) January 18, 2025 5:01am January 18, 2025 5:01am 8.1 % 1.7-12.0 Monocyte s (%) (Auto) January 19, 2025 7:42am January 19, 2025 7:42am 8.7 % 1.7-12.0 Urine Specific [place] January 14, 2025 11:49am <=1.005 Abnormal (applies to non-numeric results) 1.005-1.02 5 Glucose Level January 17, 2025 1:46pm January 17, 2025 1:46pm 95 mg/dL 74-106 Mean Platelet Volume January 17, 2025 1:46pm January 17, 2025 1:46pm 8.9 fL Below low normal 9.5-13.5 Urine RBC January 17, 2025 5:55pm NONE SEEN #/HPF 0-2 Glucose Level January 18, 2025 5:01am January 18, 2025 5:01am 80 mg/dL 74-106 Mean Platelet Volume January 18, 2025 5:01am January 18, 2025 5:01am 9.1 fL Below low normal 9.5-13.5 Mean Platelet Volume January 19, 2025 7:42am January 19, 2025 7:42am 8.9 fL Below low normal 9.5-13.5 Urine Squamous Epitheli al Cells January 14, 2025 11:49am NONE SEEN #/LPF NONE/RARE [place] m Level January 17, 2025 1:46pm January 17, 2025 1:46pm 5.1 mmol/L 3.5-5.1 Neutroph ils # (Auto) January 17, 2025 1:46pm January 17, 2025 1:46pm 5.3 10 3/uL 1.4-6.5 Urine Specific [place] January 17, 2025 5:55pm <=1.005 Abnormal (applies to non-numeric results) 1.005-1.02 5 [place] m Level January 18, 2025 5:01am January 18, 2025 5:01am 4.4 mmol/L 3.5-5.1 Neutroph ils # (Auto) January 18, 2025 5:01am January 18, 2025 5:01am 5.5 10 3/uL 1.4-6.5 Neutroph ils # (Auto) January 19, 2025 7:42am January 19, 2025 7:42am 4.0 10 3/uL 1.4-6.5 Urine Urobilin ogen January 14, 2025 11:49am 0.2 EU/dL 0.2-1.0 Sodium Level January 17, 2025 1:46pm January 17, 2025 1:46pm 124 mmol/L Below lower panic limits 136-145 RESULTS CALLED TO ALYSE GOETZ RN AT 1422 Neutroph ils (%) (Auto) January 17, 2025 1:46pm January 17, 2025 1:46pm 70.7 % 43.0-75.0 Urine Squamous Epitheli al Cells January 17, 2025 5:55pm NONE SEEN #/LPF NONE/RARE Sodium Level January 18, 2025 5:01am January 18, 2025 5:01am 128 mmol/L Below low normal 136-145 Neutroph ils (%) (Auto) January 18, 2025 5:01am January 18, 2025 5:01am 68.0 % 43.0-75.0 Neutroph ils (%) (Auto) January 19, 2025 7:42am January 19, 2025 7:42am 61.7 % 43.0-75.0 Urine WBC January 14, 2025 11:49am NONE SEEN #/HPF NONE SEEN Total Bilirubi n January 17, 2025 1:46pm January 17, 2025 1:46pm 0.5 mg/dL 0.2-1.0 Platelet Count January 17, 2025 1:46pm January 17, 2025 1:46pm 257 10 3/uL 150-450 Urine Urobilin ogen January 17, 2025 5:55pm 0.2 EU/dL 0.2-1.0 Total Bilirubi n January 18, 2025 5:01am January 18, 2025 5:01am 0.5 mg/dL 0.2-1.0 Platelet Count January 18, 2025 5:01am January 18, 2025 5:01am 238 10 3/uL 150-450 Platelet Count January 19, 2025 7:42am January 19, 2025 7:42am 233 10 3/uL 150-450 Total Protein January 17, 2025 1:46pm January 17, 2025 1:46pm 7.7 g/dL 6.4-8.2 Red Blood Count January 17, 2025 1:46pm January 17, 2025 1:46pm 4.63 10 6/uL Below low normal 4.70-6.10 Urine WBC January 17, 2025 5:55pm 0-2 #/HPF Abnormal (applies to non-numeric results) NONE SEEN Total Protein January 18, 2025 5:01am January 18, 2025 5:01am 6.6 g/dL 6.4-8.2 Red Blood Count January 18, 2025 5:01am January 18, 2025 5:01am 4.16 10 6/uL Below low normal 4.70-6.10 Red Blood Count January 19, 2025 7:42am January 19, 2025 7:42am 4.40 10 6/uL Below low normal 4.70-6.10 Red Cell Distribu tion Width January 17, 2025 1:46pm January 17, 2025 1:46pm 12.2 % 11.0-15.0 Red Cell Distribu tion Width January 18, 2025 5:01am January 18, 2025 5:01am 12.4 % 11.0-15.0 Red Cell Distribu tion Width January 19, 2025 7:42am January 19, 2025 7:42am 12.7 % 11.0-15.0 Correcte d White Blood Count January 17, 2025 1:46pm January 17, 2025 1:46pm 7.5 10 3/uL 4.0-11.0 Correcte d White Blood Count January 18, 2025 5:01am January 18, 2025 5:01am 8.1 10 3/uL 4.0-11.0 Correcte d White Blood Count January 19, 2025 7:42am January 19, 2025 7:42am 6.5 10 3/uL 4.0-11.0 Vital Signs Vital Reading Result Reference Range Collection Date/Time Height 72 [in_i] January 04, 2025 11:40am Weight 71.78 kg January 04, 2025 11:40am Heart Rate 76 /min 60-100 January 04, 2025 11:40am Respiratory rate 12 /min -January 04, 2025 11:40am BP Systolic 139 mm[Hg] 100-140 January 04, 2025 11:40am BP Diastolic 89 mm[Hg] 60-100 January 04, 2025 11:40am BMI (Body Mass Index) 21.4 kg/m2 December 262024 11:40am Advance Directives Advance Directive Response Recorded Date/ Time Advance Directives No January 22 12:30pm Insurance Providers Guarantor Kingston Guevara Address [address] [facility] [id number] Contact Info. Home Phone: Payer Policy Id Subscriber's Name Subscriber Id Effectiv e Date Expiration Date Medicare [id number] Kingston Guevara [id number] [employer] [id number] Kingston Guevara [id number] Encounters Encounter Location(s) Arrival/Admit Date Discharge/Depart Date Provider(s) Non-patient / Non-visit -[facility] January 03, 2025 10:43am Jeremy Lam DO Departed Physician/Prov ider Office Visit -[facility] January 04, 2025 11:26am January 04, 2025 11:59am Jeremy Lam DO Non-patient / Non-visit -[facility] January 14, 2025 11:49am Young Berrios MD Non-patient / Non-visit -[facility] January 17, 2025 1:46pm Kingston Aiken DO Non-patient / Non-visit -[facility] January 18, 2025 5:01am Hilary Quintero MD Non-patient / Non-visit -[facility] January 19, 2025 7:42am Hilary Quintero MD Non-patient / Non-visit -[facility] January 20, 2025 9:15am Brianda Chin [facility] Departed Clinical -[facility] January 20, 2025 10:27am January 20, 2025 10:28am Shirley Collins , [employer] Recent Diagnosis Onset Date Admit Date Carotid stenosis, right Unknown December 11:26am Chronic bronchitis Unknown January 04 11:26am Chronic kidney disease Unknown December 11:26am Hypercholesterolemia Unknown January 04, 2025 11:26am Hypertension Unknown January 04, 2025 11:26am Hyponatremia Unknown January 04, 2025 11:26am Hypothyroid Unknown January 04, 2025 11:26am Nicotine addiction Unknown January 04 11:26am Assessments Diagnosis Onset Date Resolution Status Admit Date Carotid stenosis, right acute J 2024 11:26am Chronic bronchitis acute December 262024 11:26am Chronic kidney disease acute Ju 2024 11:26am Hypercholesterolemia acute January 04, 2025 11:26am Hypertension acute January 04 11:26am Hyponatremia acute January 04 11:26am Hypothyroid acute January 04 11:26am Nicotine addiction acute December 262024 11:26am Plan of Treatment Author Jeremy Lam [facility] Authored January 04, 2025 12:2 6pm I have instructed this patie nt to [...] any suspicious symptoms. Continue secondary prevention measures Instructed on smoking cessation US: >70% DAMARIS (93% right [...] as well as limiting fluids to 48oz. Consistent w/ SIADH - fluid restrict - reduce alcohol consumption - initiated thyroid hormone replacement Future Tests Future scheduled test information is unavailable Pending Tests Pending diagnostic test information is unavailable Future Visits Future appointment information is unavailable Referrals to Other Providers Referral information is unavailable Future Procedures Future procedure information is unavailable Future Medications Future medication information is unavailable Patient Instructions Patient instructions are unavailable
--- OUTSIDE RECORDS SUMMARY | 2025-01-24 15:54 | XMS_ITS | Clinical Summary ---
Author Organization [facility] tem [id number] [address] [place] [address] Care Team Providers Care Paid Search Manager Name Role Phone Jeremy Lam DO Primary Care Provider Social History Tobacco Use Types Packs/Day Years [...] Not on file Insurance [employer] Care Teams Paid Search Manager Relationship Specialty Start Date End Date Jeremy Lam DO [address] [place] [address] PCP - General Internal Medicine 07/06/18
[2025-01-24 17:34] LABS: Alanine Aminotransferase 18 U/L (16-63); Albumin Globulin Ratio 0.9; Albumin Level 3.5 g/dL (3.4-5.0); Alkaline Phosphatase 88 U/L (46-116); Anion Gap 14.8; Aspartate Amino Transferase 19 U/L (15-37); BUN Creatinine Ratio 10.8; Bilirubin Total 0.5 mg/dL (0.2-1.0); Calcium 8.8 mg/dL (8.5-10.1); Carbon Dioxide 23.4 mmol/L (21.0-32.0); Chloride 92 mmol/L (98-107); Estimated GFR (African America 40 (>=60 mL/min/1.73m^2); Estimated GFR (Non-African Ame 33 (>=60 mL/min/1.73m^2); Globulin 3.8 g/dL; Glucose 113 mg/dL (74-106); Potassium 4.2 mmol/L (3.5-5.1); Sodium 126 mmol/L (136-145); Total Protein 7.3 g/dL (6.4-8.2)
== END 2025-01-24 15:49 | disposition home or self-care (01) ==
LOC: LAB 15:51
PROVIDERS: PCP Internal Medicine; Visit Provider Student in an Organized Health Care Education/Training Program
DX: E87.1 Hypo-osmolality and hyponatremia (principal)
CPT/HCPCS: 36415; 80053

== ENCOUNTER 2025-07-13 06:56 | Outpatient (OUT) | payer MEDICARE, SELFPAY ==
--- OUTSIDE RECORDS SUMMARY | 2025-07-13 06:59 | XMS_ITS | Clinical Summary ---
Author Organization [facility] tem [facility] [place] [address] Care Team Providers Care Craniologist Name Role Phone Jeremy Lam DO Primary Care Provider [phone] Social History Tobacco UseTypesPacks/DayYears UsedDateSmoking Tobacco: Never AssessedChildcare AnswerDate PjcygexdWncqkduubCzjwiin96/13/2019EmploymentAnswerDate Recorded IxiennswsjYlbngeq64/13/2019Purpose - LifeAnswerDate RecordedPurpose and direction in xgixCszjzsl69/11/2021ex and Gender InformationValueDate Recorded Sex Assigned at BirthNot on fileLegal SqiHrbv42/10/2018 11:40 AM ESTGender IdentityNot on fileSexual OrientationNot on file Plan of Treatment Not on file Medical Devices Not on file Insurance Care Teams Team MemberRelationshipSpecialtyStart DateEnd Date Jeremy Lam DO [facility] [place] [address] PCP - GeneralInternal Cjpcvdfl83/10/18
[2025-07-13 07:28] LABS: Hematocrit 46.7 % (42.0-54.0); Hemoglobin 16.9 g/dL (14.0-18.0); Immature Granulocytes Abs Auto 0.02 10^3/uL (0.00-0.03); Immature Granulocytes Pct Auto 0.2 % (0.0-0.5); Lymphocytes Absolute Auto 1.5 10^3/uL (1.2-3.8); Mean Corpuscular HGB Conc 36.2 g/dL (29.9-35.2); Mean Corpuscular Hemoglobin 32.9 pg (25.9-34.0); Mean Corpuscular Volume 91.0 fL (80.0-94.0); Platelet Count 261 10^3/uL (150-450); Red Blood Count 5.13 10^6/uL (4.70-6.10); White Blood Count 9.7 10^3/uL (4.0-11.0)
[2025-07-13 09:23] LABS: Alanine Aminotransferase 17 U/L (16-63); Albumin Globulin Ratio 0.8; Albumin Level 3.5 g/dL (3.4-5.0); Alkaline Phosphatase 81 U/L (46-116); Anion Gap 16.7; Aspartate Amino Transferase 21 U/L (15-37); Blood Urea Nitrogen 13.0 mg/dL (7.0-18.0); Calcium 9.1 mg/dL (8.5-10.1); Carbon Dioxide 23.5 mmol/L (21.0-32.0); Chloride 98 mmol/L (98-107); Cholesterol 147 mg/dL (<=200); Estimated GFR (African America 35 (>=60 mL/min/1.73m^2); Estimated GFR (Non-African Ame 29 (>=60 mL/min/1.73m^2); Globulin 4.3 g/dL; Glucose 91 mg/dL (74-106); HDL Cholesterol 32 mg/dL (40-60); Potassium 4.2 mmol/L (3.5-5.1); Sodium 134 mmol/L (136-145); Thyroid Stimulating Hormone 2.644 uIU/mL (0.358-3.740); Total Protein 7.8 g/dL (6.4-8.2); Triglycerides 115 mg/dL (<=150); VLDL CHOLESTEROL 23.0 mg/dL
== END 2025-07-13 06:57 | disposition home or self-care (01) ==
LOC: LAB 06:56
PROVIDERS: PCP Internal Medicine; Visit Provider Internal Medicine
DX: I12.9 Hypertensive chronic kidney disease with stage 1 through stage 4 chronic kidney disease, or unspecified chronic kidney disease (principal); N18.4 Chronic kidney disease, stage 4 (severe); E78.00 Pure hypercholesterolemia, unspecified; N18.9 Chronic kidney disease, unspecified; Z12.5 Encounter for screening for malignant neoplasm of prostate; E06.3 Autoimmune thyroiditis
CPT/HCPCS: 36415; 80053; 80061; 84443; 85025; G0103